=== PATIENT | male | born 1960 | race Caucasian/White ===

== ENCOUNTER 2016-09-29 06:46 | Emergency (ER) | payer MEDICARE ==
--- NOTE | 2016-09-29 07:28 | ER Document Report ---
ED Extremity Problem, Lower - General Mode of Arrival: Ambulatory Information source: Patient TRAVEL OUTSIDE OF THE [place] IN LAST 30 DAYS: No - HPI Patient complains to provider of: Pain - bilateral lower extremities, L>R Onset/Duration: Persistent Quality of pain: Achy, Cramping Recent injury: No - General Chief Complaint: Leg Pain Stated Complaint: LEG PAIN Notes: Patient is a 55-year-old male that presents to the emergency department today with complaints of bilateral leg pain, left greater than right. Patient states in November he was diagnosed with a DVT, patient states that in April he was also found to have another DVT, both being in the left leg. Patient states he has never had a PE. Patient states he is on Coumadin for anticoagulation currently. Patient states he recently moved down here from [place] and he had a 5 day period where he was unable to fill his prescription for Coumadin. Patient is currently being treated at [facility] for chronic low back pain. (JACK AGUILERA) - Related Data Allergies/Adverse Reactions: erythromycin base Allergy (Verified 08/25/16 10:38) Past Medical History - General Information source: Patient, Emergency Med Personnel - Social History Smoking Status: Current Every Day Smoker Cigarette use (# per day): Yes Frequency of alcohol use: None Drug Abuse: None Lives with: Family Family History: Reviewed & Not Pertinent - Past Medical History Cardiac Medical History: Reports: Hx DVT, Hx Hypertension Past Surgical History: Reports: Hx Vascular Surgery - removal of DVTs in legs, IVC filter placed - Immunizations Hx Diphtheria, Pertussis, Tetanus Vaccination: No Review of Systems - Review of Systems Constitutional: No symptoms reported EENT: No symptoms reported Cardiovascular: denies: Chest pain Respiratory: denies: Hurts to breathe, Short of breath Gastrointestinal: No symptoms reported Genitourinary: No symptoms reported Male Genitourinary: No symptoms reported Musculoskeletal: See HPI, Other - bilateral leg/calf pain, L>R Skin: No symptoms reported Hematologic/Lymphatic: No symptoms reported Neurological/Psychological: No symptoms reported -: Yes All other systems reviewed and negative Physical Exam - General General appearance: Appears well, Alert In distress: None - HEENT Head: Normocephalic, Atraumatic Eyes: Normal Conjunctiva: Normal - Respiratory Respiratory status: No respiratory distress Chest status: Nontender Breath sounds: Normal - Cardiovascular Rhythm: Regular Heart sounds: Normal auscultation Murmur: No - Abdominal Inspection: Normal Distension: No distension - Extremities General upper extremity: Normal inspection, Nontender. No: Edema Calf: Tender - mild left calf tenderness with palpation - Neurological Neuro grossly intact: Yes Cognition: Normal Orientation: AAOx4 Speech: Normal - Psychological Associated symptoms: Normal affect, Normal mood - Skin Skin Temperature: Warm Skin Moisture: Dry Skin Color: Normal Course - Re-evaluation Re-evalutation: 09/29/16 23:23 I personally performed the services described in the documentation, reviewed and edited the documentation which was dictated to my scribe in my presence, and it accurately records my words and actions. Patient presented to the emergency Department chief complaint lower extremity pain history DVT. Patient says he recently moved here from [place]. Spent [facility] 5 different times to receive narcotics for chronic pain exacerbations. Says he sees a chronic pain clinic and is out of his pain medication. Says that he had a local family doctor give him some Coumadin but is not sure if it's therapeutic is concerned he has bilateral blood clots. On examination he had good perfusion no cellulitis good distal pulses. Checked his Coumadin level was subtherapeutic ordered bilateral DVT ultrasounds. Called to the bedside by the nurse patient very agitated and fidgety at bedside requesting narcotic pain medication. Explained to him that he has a pain specialist he's been given narcotic pain medication in addition to narcotic pain medication here in the emergency department patient very agitated as if he was going through withdrawal questioning demanding narcotics. This time I spoke with him in terms of chronic pain management the concerns for subtherapeutic DVT. pipe organ technician came over to get him for bilateral duplex ultrasounds and he had left the facility. At this point I contacted the on-call pain management doctor Dr. Guevara as I reviewed his records and he was given 60 narcotic tablets in the emergency department in 6 days. At this point he is drug-seeking behavior and will no longer receive narcotics in the emergency department for any chronic condition. 09/29/16 23:34 (KAPIL FLORES) - Vital Signs Vital signs: Temp Pulse Resp BP Pulse Ox 98.3 F 82 16 163/82 H 97 09/29/16 06:50 09/29/16 06:50 09/29/16 06:50 09/29/16 06:50 09/29/16 06:50 (KAPIL FLORES) - Laboratory Laboratory results interpreted by me: 09/29/16 06:58 PT 21.4 H (KAPIL FLORES) Discharge - Discharge Clinical Impression: Drug-seeking behavior, subtherapeutic on coumadin, history dvt Disposition: ELOPED Scribe Documentation - Scribe Written by Scrseee:: Dg Mckinney, [id number] 09/29/2016 acting as scribe for :: Thong
[2016-09-29 07:29] VITALS: BP 163/82
[2016-09-29 07:41] LABS: PROTHROMBIN TIME 21.4 SEC (11.4-15.4)
== END 2016-09-29 09:29 | disposition left against medical advice (07) ==
LOC: ER 06:46
DX: Z76.5 Malingerer [conscious simulation] (principal); R79.1 Abnormal coagulation profile; F17.210 Nicotine dependence, cigarettes, uncomplicated; I10 Essential (primary) hypertension; Z86.718 Personal history of other venous thrombosis and embolism; Z79.01 Long term (current) use of anticoagulants; Z88.3 Allergy status to other anti-infective agents
CPT/HCPCS: 36415; 85610; 99281

== ENCOUNTER 2016-12-27 18:08 | Emergency (ER) | payer MEDICARE ==
[2016-12-27] MEDS ORDERED: NITROGLYCERIN 0.4 MG/TAB 25 TAB/BOTTLE SL PRN (18:43)
[2016-12-27] MEDS ORDERED: OXYCODONE HCL IR 5 MG TABLET PO ONE (18:44)
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
[2016-12-27 19:19] LABS: PROTHROMBIN TIME 29.4 SEC (11.4-15.4)
[2016-12-27 19:22] LABS: ABSOLUTE EOSINOPHILS # (AUTO) 0.1 10^3/uL (0.0-0.6); ABSOLUTE LYMPHOCYTES (AUTO) 1.8 10^3/uL (0.5-4.7); ABSOLUTE MONOCYTES (AUTO) 0.6 10^3/uL (0.1-1.4); BASOPHILS % (AUTO) 0.2 % (0-2); EOSINOPHILS % (AUTO) 0.8 % (0-6); HEMATOCRIT 42.9 % (37.9-51.0); HEMOGLOBIN 14.9 g/dL (13.5-17.0); HGB HCT DIFFERENCE 1.8; LYMPHOCYTES % (AUTO) 24.1 % (13-45); MEAN CORPUSCULAR HEMOGLOBIN 33.1 pg (27.0-33.4); MEAN CORPUSCULAR HGB CONC 34.7 g/dL (32.0-36.0); MEAN CORPUSCULAR VOLUME 95 fl (80-97); RED CELL DISTRIBUTION WIDTH 14.2 % (11.5-14.0); SEGMENTED NEUTROPHILS % (AUTO) 66.9 % (42-78); WHITE BLOOD COUNT 7.4 10^3/uL (4.0-10.5)
[2016-12-27 19:27] LABS: ALANINE AMINOTRANSFERASE 43 U/L (21-72); ALBUMIN 3.4 g/dL (3.5-5.0); ALKALINE PHOSPHATASE 88 U/L (38-126); ANION GAP 9 (5-19); ASPARTATE AMINO TRANSFERASE 48 U/L (17-59); BILIRUBIN,DIRECT 0.5 mg/dL (0.0-0.4); BILIRUBIN,TOTAL 2.2 mg/dL (0.2-1.3); BLOOD UREA NITROGEN 9 mg/dL (7-20); CALCIUM 9.2 mg/dL (8.4-10.2); CARBON DIOXIDE 23 mmol/L (22-30); CHLORIDE 110 mmol/L (98-107); GLUCOSE 96 mg/dL (75-110); POTASSIUM 4.1 mmol/L (3.6-5.0); SODIUM 142.4 mmol/L (137-145); TOTAL PROTEIN 6.7 g/dL (6.3-8.2)
[2016-12-27 19:47] LABS: TROPONIN I < 0.012 ng/mL
[2016-12-27 20:34] VITALS: BP 114/69
--- NOTE | 2016-12-28 00:11 | EKG REPORT ---
SEVERITY:- NORMAL ECG - SINUS RHYTHM : Confirmed by: Karin Peralta 28-Dec-2016 00:10:35
== END 2016-12-27 22:50 | disposition left against medical advice (07) ==
LOC: ER 18:08
DX: R07.89 Other chest pain (principal); I10 Essential (primary) hypertension; R61 Generalized hyperhidrosis; R11.0 Nausea; R06.02 Shortness of breath; Z88.1 Allergy status to other antibiotic agents; Z86.718 Personal history of other venous thrombosis and embolism; Z86.711 Personal history of pulmonary embolism; Z53.29 Procedure and treatment not carried out because of patient's decision for other reasons
CPT/HCPCS: 93005; 99281; 36415; 85025; 85610; 80053; 84484; 83880; 71010; 93010; A9270

== ENCOUNTER 2017-02-03 03:29 | Observation (INO) | payer MEDICARE ==
[2017-02-03] MEDS ORDERED: ASPIRIN 81 MG TABLET, CHEWABLE PO ONE (03:40)
[2017-02-03 04:10] LABS: PROTHROMBIN TIME 19.1 SEC (11.4-15.4)
[2017-02-03 04:18] LABS: ABSOLUTE BASOPHILS # (AUTO) 0.1 10^3/uL (0.0-0.2); ABSOLUTE EOSINOPHILS # (AUTO) 0.1 10^3/uL (0.0-0.6); ABSOLUTE LYMPHOCYTES (AUTO) 2.1 10^3/uL (0.5-4.7); ABSOLUTE MONOCYTES (AUTO) 0.7 10^3/uL (0.1-1.4); ABSOLUTE NEUT (AUTO) 4.1 10^3/uL (1.7-8.2); BASOPHILS % (AUTO) 0.8 % (0-2); EOSINOPHILS % (AUTO) 1.6 % (0-6); HEMOGLOBIN 15.3 g/dL (13.5-17.0); HGB HCT DIFFERENCE 1.9; LYMPHOCYTES % (AUTO) 29.7 % (13-45); MEAN CORPUSCULAR HGB CONC 34.7 g/dL (32.0-36.0); MEAN CORPUSCULAR VOLUME 95 fl (80-97); MONOCYTES % (AUTO) 9.8 % (3-13); RED BLOOD COUNT 4.64 10^6/uL (4.35-5.55); RED CELL DISTRIBUTION WIDTH 14.1 % (11.5-14.0); SEGMENTED NEUTROPHILS % (AUTO) 58.1 % (42-78)
[2017-02-03 04:19] LABS: ALANINE AMINOTRANSFERASE 47 U/L (21-72); ALBUMIN 3.6 g/dL (3.5-5.0); ALKALINE PHOSPHATASE 86 U/L (38-126); ANION GAP 10 (5-19); ASPARTATE AMINO TRANSFERASE 47 U/L (17-59); BILIRUBIN,DIRECT 0.6 mg/dL (0.0-0.4); BILIRUBIN,TOTAL 1.7 mg/dL (0.2-1.3); BLOOD UREA NITROGEN 13 mg/dL (7-20); CALCIUM 9.3 mg/dL (8.4-10.2); CARBON DIOXIDE 24 mmol/L (22-30); CHLORIDE 109 mmol/L (98-107); CREATINE KINASE 122 U/L (55-170); CREATININE RESULT 0.66 mg/dL (0.52-1.25); GLUCOSE 98 mg/dL (75-110); POTASSIUM 4.1 mmol/L (3.6-5.0); SODIUM 142.8 mmol/L (137-145)
[2017-02-03 04:31] LABS: CREATINE KINASE MB 1.77 ng/mL (<4.55)
[2017-02-03 04:35] LABS: TROPONIN I < 0.012 ng/mL
[2017-02-03] MEDS ORDERED: OXYCODONE-ACETAMINOPHEN 5-325 MG TABLET PO ONE (05:22)
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
[2017-02-03] MEDS ORDERED: ENOXAPARIN SODIUM INJ 120 MG/0.8 ML DISP.SYRIN SUBCUT SCH ×3 (05:30→10:00)
[2017-02-03] MEDS ORDERED: IBUPROFEN 600 MG TABLET PO ONE (07:42)
[2017-02-03] MEDS ORDERED: ONDANSETRON 4 MG TAB.RAPDIS PO PRN (08:30)
[2017-02-03] MEDS ORDERED: ACETAMINOPHEN 325 MG TABLET PO PRN (08:30)
[2017-02-03] MEDS ORDERED: ONDANSETRON HCL INJ/PF 4 MG/2 ML SDV IV PRN (08:30)
[2017-02-03] MEDS ORDERED: ALBUTEROL SULFATE 0.083% NEB 2.5 MG/3 ML AMPUL NEB PRN (08:30)
[2017-02-03] MEDS: LEVOFLOXACIN 750 MG TABLET PO SCH (09:37)
[2017-02-03] MEDS: OXYCODONE HCL IR 5 MG TABLET PO PRN ×4 (09:38→21:38)
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
[2017-02-03 11:15] LABS: PROTHROMBIN TIME 20.7 SEC (11.4-15.4)
[2017-02-03 11:18] LABS: CREATINE KINASE MB 1.45 ng/mL (<4.55)
[2017-02-03 11:35] LABS: TROPONIN I < 0.012 ng/mL
--- NOTE | 2017-02-03 11:50 | XCELERA REPORT ---
[address] [address] Transthoracic Echocardiogram Report Name: RADHA VÁSQUEZ Age: 56 yrs Gender: Male : 1960 Patient Status: Inpatient Patient Location: \S\09\S\A Study Date: 02/03/2017 09:01 AM Height: 69 in Weight: 247 lb BSA: 2.3 m2 Procedure: A two-dimensional transthoracic echocardiogram with color flow and Doppler was performed. Study Quality: Technically suboptimal. Poor endocardial visualisation and poor doppler interogation. Reason For Study: DYSPNEA History: DYSPNEA. Ordering Physician: RENAN CASTILLO Performed By: Josi Estes Interpretation Summary The left ventricle is normal in size. There is normal left ventricular wall thickness. LV EF is 60% Left ventricular systolic function is normal. Doppler measurements suggest normal left ventricular diastolic function Probably no regional wall motion abnormality ,and probably no thrombus. The right ventricle is not well visualized secondary to technical limitations The left atrium is mildly dilated. There is no evidence of mitral valve prolapse. There is no mitral valve stenosis. There is a mild amount of mitral regurgitation There is no aortic valve stenosis There is no LVOT obstruction. No aortic regurgitation is present. There is no tricuspid stenosis. Probably no TR.Unable to calculate RVSP due to insufficient TR jet. There is no pericardial effusion. MMode/2D Measurements \T\ Calculations RVDd: 3.3 cm LVIDd: 5.3 cm FS: 25.8 % Ao root diam: 3.0 cm IVSd: 1.1 cm LVIDs: 3.9 cm EDV(Teich): 134.9 ml LVPWd: 1.1 cm ESV(Teich): 67.1 ml Ao root area: 7.2 cm2 EF(Teich): 50.3 % LA dimension: 4.3 cm Doppler Measurements \T\ Calculations MV E max susie: MV P1/2t max susie: Ao V2 max: LV V1 max P.2 cm/sec 96.7 cm/sec 165.1 cm/sec 7.6 mmHg MV A max susie: MV P1/2t: 68.8 msec Ao max PG: LV V1 max: 81.9 cm/sec 10.9 mmHg 137.7 cm/sec MV E/A: 1.2 MVA(P1/2t): 3.2 cm2 MV dec slope: 412.1 cm/sec2 PA V2 max: 106.1 cm/sec PA max P.5 mmHg Left Ventricle The left ventricle is normal in size. There is normal left ventricular wall thickness. LV EF is 60%. Left ventricular systolic function is normal. Doppler measurements suggest normal left ventricular diastolic function. Probably no regional wall motion abnormality ,and probably no thrombus. Right Ventricle The right ventricle is not well visualized secondary to technical limitations. Atria Right atrium not well visualized secondary to technical limitations. The left atrium is mildly dilated. Mitral Valve There is no evidence of mitral valve prolapse. There is no vegetation seen on the mitral valve. There is no mitral valve stenosis. There is a mild amount of mitral regurgitation. Aortic Valve There is no aortic valvular vegetation. There is no aortic valve stenosis. There is no LVOT obstruction. No aortic regurgitation is present. Tricuspid Valve There is no tricuspid stenosis. Probably no TR.Unable to calculate RVSP due to insufficient TR jet. Pulmonic Valve There is no pulmonic valvular stenosis. There is no pulmonic valvular regurgitation. Great Vessels The aortic root is normal size. Effusions There is no pericardial effusion. : RENAN CASTILLO > Nneka Gonzalez
[2017-02-03] MEDS ORDERED: ATENOLOL 50 MG TABLET PO ONE (12:00)
[2017-02-03] MEDS ORDERED: VALSARTAN 80 MG TABLET PO ONE (12:00)
--- NOTE | 2017-02-03 17:01 | EKG REPORT ---
SEVERITY:- NORMAL ECG - SINUS RHYTHM : Confirmed by: Karin Peralta 03-Feb-2017 17:00:07
[2017-02-03 17:41] LABS: CREATINE KINASE MB 1.45 ng/mL (<4.55); TROPONIN I < 0.012 ng/mL
[2017-02-03] MEDS ORDERED: WARFARIN SODIUM 7.5 MG TABLET PO SCH (18:00)
[2017-02-03] MEDS ORDERED: (PENDING PHARMACY ID) (Warfarin Sodium 7.5 MG) PO SCH (18:00)
[2017-02-03 23:41] LABS: CREATINE KINASE MB 1.41 ng/mL (<4.55)
[2017-02-03 23:43] LABS: TROPONIN I < 0.012 ng/mL
[2017-02-04] MEDS: OXYCODONE HCL IR 5 MG TABLET PO PRN ×3 (01:33→12:05)
[2017-02-04 04:22] LABS: HEMATOCRIT 44.7 % (37.9-51.0); HEMOGLOBIN 15.4 g/dL (13.5-17.0); HGB HCT DIFFERENCE 1.5; MEAN CORPUSCULAR HEMOGLOBIN 32.5 pg (27.0-33.4); MEAN CORPUSCULAR HGB CONC 34.4 g/dL (32.0-36.0); MEAN CORPUSCULAR VOLUME 95 fl (80-97); RED BLOOD COUNT 4.72 10^6/uL (4.35-5.55); RED CELL DISTRIBUTION WIDTH 14.2 % (11.5-14.0); WHITE BLOOD COUNT 5.6 10^3/uL (4.0-10.5)
[2017-02-04 04:30] LABS: ANION GAP 9 (5-19); BLOOD UREA NITROGEN 14 mg/dL (7-20); CALCIUM 9.8 mg/dL (8.4-10.2); CARBON DIOXIDE 23 mmol/L (22-30); CHLORIDE 108 mmol/L (98-107); CREATININE RESULT 0.74 mg/dL (0.52-1.25); GLUCOSE 85 mg/dL (75-110); MAGNESIUM 1.8 mg/dL (1.6-2.3); POTASSIUM 4.6 mmol/L (3.6-5.0); SODIUM 139.8 mmol/L (137-145)
[2017-02-04] MEDS ORDERED: RIVAROXABAN 10 MG TABLET PO ONE ×2 (08:45→13:30)
[2017-02-04] MEDS ORDERED: TRAMADOL HCL 50 MG TABLET PO PRN (09:03)
[2017-02-04] MEDS ORDERED: VALSARTAN 80 MG TABLET PO SCH (10:00)
[2017-02-04] MEDS ORDERED: ATENOLOL 50 MG TABLET PO SCH (10:00)
[2017-02-04] MEDS ORDERED: (PENDING PHARMACY ID) (Atenolol [Tenormin 100 Mg Tablet] 100 MG) PO SCH (10:00)
[2017-02-04] MEDS ORDERED: REGADENOSON INJ 0.4 MG/5 ML DISP.SYRIN IV ONE (11:37)
[2017-02-04] MEDS: LEVOFLOXACIN 750 MG TABLET PO SCH (12:03)
[2017-02-04 14:41] VITALS: BP 114/66
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
--- NOTE | 2017-02-04 20:35 | DRAGON STRESS TEST REPORT ---
Intravenous Lexiscan Cardiolite stress test using single photon emmision computerized tomography. Date of procedure: 02/04/2017 Ordering Provider: Dr. Sam Becker Patient's status: Inpatient. Indication: Chest pain. Coronary risk factors: Age, hypertension, tobacco abuse , and dyspnea on exertion. Resting EKG: Sinus Rhythm. Artifact present. Probably normal EKG. Stress EKG: No changes of ischemia. The patient had no chest pain or discomfort. There were no arrhythmias seen. The patient had transient shortness of breath which was relieved with drinking Pepsi. Reason for termination: Protocol. Conclusions: Normal EKG and hemodynamic response to IV Lexiscan. Nuclear data: At rest the patient was given 14.63 millicuries of technetium 99m sestamibi injected intravenously. As per protocol rest non gated SPECT images were obtained. Subsequently the patient was given intravenous Lexiscan at a dose of 0.4 mg in 5 mL intravenously, followed by flush with normal saline. Subsequently the stress dose of 45.3 millicuries of technetium 99m sestamibi was injected intravenously. As per protocol stress gated images were obtained. Nuclear interpretation: Review of images showed that there is bowel contamination artifact of the inferior wall. In spite of all this all segments of the myocardium had normal perfusion at rest, and normal perfusion post stress with IV Lexiscan. All segments of the myocardium had normal motion, contraction, and thickening by gated study. T. I D. ratio was normal at 1.10. Computer read rest, and stress left ventricular ejection fraction were 62 %, and 62 %, respectively. Conclusion: 1. There is no scintigraphic evidence of Lexiscan induced myocardial ischemia. 2. There is no scintigraphic evidence of myocardial infarction/scar. Recommendations: 1Aggressive risk factor modification, and treating the underlying co- morbidities. 2. Consider pulmonary workup. [facility]
[2017-02-05] MEDS ORDERED: WARFARIN SODIUM 5 MG TABLET PO SCH (18:00)
[2017-02-05] MEDS ORDERED: (PENDING PHARMACY ID) (Warfarin Sodium 5 MG) PO SCH (18:00)
== END 2017-02-04 14:57 | disposition home or self-care (01) ==
LOC: ER 03:29 → EH 07:42 → UNDOADMOB 07:42 → EH 08:30 → 5 12:35
PROVIDERS: ADMIT Internal Medicine; ATTEND Internal Medicine
DX: R07.89 Other chest pain (principal); I10 Essential (primary) hypertension; B19.20 Unspecified viral hepatitis C without hepatic coma; G89.29 Other chronic pain; I25.10 Atherosclerotic heart disease of native coronary artery without angina pectoris; I51.89 Other ill-defined heart diseases; I82.409 Acute embolism and thrombosis of unspecified deep veins of unspecified lower extremity; F17.200 Nicotine dependence, unspecified, uncomplicated; E66.9 Obesity, unspecified; R05 Cough; R68.83 Chills (without fever); R06.02 Shortness of breath; M54.9 Dorsalgia, unspecified; Z79.899 Other long term (current) drug therapy; Z86.711 Personal history of pulmonary embolism; Z79.02 Long term (current) use of antithrombotics/antiplatelets; Z95.828 Presence of other vascular implants and grafts; Z82.3 Family history of stroke; Z80.1 Family history of malignant neoplasm of trachea, bronchus and lung; Z80.0 Family history of malignant neoplasm of digestive organs; Z68.36 Body mass index [BMI] 36.0-36.9, adult
CPT/HCPCS: 93005; 99285; 96372; 36415 ×2; 82553; 82550; 83735; 85025; 85027; 85610; 85730; 80048; 80053; 84484; 83880; 93306; 93017; 71020; 78452; 71275; 93010; G0378 ×3; C1751; A9500; J2785; A9270 ×12; J1650; J3490; Q9969

== ENCOUNTER 2017-02-09 19:22 | Emergency (ER) | payer MEDICARE ==
[2017-02-09] MEDS ORDERED: ASPIRIN 81 MG TABLET, CHEWABLE PO ONE (20:27)
--- NOTE | 2017-02-09 20:35 | EKG REPORT ---
SEVERITY:- NORMAL ECG - SINUS RHYTHM : Confirmed by: Karin Peralta 09-Feb-2017 20:34:11
--- NOTE | 2017-02-09 20:40 | ER Document Report ---
ED Medical Screen (RME) - General Chief Complaint: Chest Pain Stated Complaint: CHEST PAIN Time Seen by Provider: 02/09/17 20:26 Notes: Patient is a 56-year-old male the history of blood clots comes in complaining of some chest tightness. Patient also becomes winded when walking. Possible recent diagnosis of pneumonia for which she was on azithromycin. Patient takes warfarin. TRAVEL OUTSIDE OF THE [place] IN LAST 30 DAYS: No - Related Data Allergies/Adverse Reactions: erythromycin base Allergy (Verified 02/03/17 03:41) Past Medical History - Past Medical History Cardiac Medical History: Reports: Hx DVT, Hx Hypertension Renal/ Medical History: Denies: Hx Peritoneal Dialysis GI Medical History: Reports: Hx Hepatitis - History of hepatitis C. He has had treatment. Infectious Medical History: Reports: Hx Hepatitis - History of hepatitis C. He has had treatment. Past Surgical History: Reports: Hx Orthopedic Surgery - Has had cervical spine surgery, Hx Vascular Surgery - removal of DVTs in legs, IVC filter placed - Immunizations Hx Diphtheria, Pertussis, Tetanus Vaccination: No Review of Systems - Review of Systems Cardiovascular: See HPI Respiratory: See HPI Physical Exam - Vital signs Vitals: Temp Pulse Resp BP Pulse Ox 98.6 F 67 20 134/71 H 97 02/09/17 20:05 02/09/17 20:05 02/09/17 20:05 02/09/17 20:05 02/09/17 20:05 Interpretation: Normal - General General appearance: Appears well, Alert - HEENT Head: Normocephalic, Atraumatic Eyes: Normal Pupils: PERRL - Respiratory Respiratory status: No respiratory distress Chest status: Nontender Breath sounds: Normal Chest palpation: Normal - Cardiovascular Rhythm: Regular Heart sounds: Normal auscultation Murmur: No - Abdominal Inspection: Normal Distension: No distension Bowel sounds: Normal Tenderness: Nontender Organomegaly: No organomegaly - Back Back: Normal, Nontender - Extremities General upper extremity: Normal inspection, Nontender, Normal color, Normal ROM , Normal temperature General lower extremity: Normal inspection, Nontender, Normal color, Normal ROM , Normal temperature, Normal weight bearing. No: Carole's sign - Neurological Neuro grossly intact: Yes Cognition: Normal Orientation: AAOx4 [place] Coma Scale Eye Opening: Spontaneous [place] Coma Scale Verbal: Oriented [place] Coma Scale Motor: Obeys Commands Wilner Coma Scale Total: 15 Speech: Normal Motor strength normal: LUE, RUE, LLE, RLE Sensory: Normal - Psychological Associated symptoms: Normal affect, Normal mood - Skin Skin Temperature: Warm Skin Moisture: Dry Skin Color: Normal Course - Vital Signs Vital signs: Temp Pulse Resp BP Pulse Ox 98.6 F 67 20 134/71 H 97 02/09/17 20:05 02/09/17 20:05 02/09/17 20:05 02/09/17 20:05 02/09/17 20:05
[2017-02-09 21:16] LABS: ABSOLUTE BASOPHILS # (AUTO) 0.1 10^3/uL (0.0-0.2); ABSOLUTE EOSINOPHILS # (AUTO) 0.1 10^3/uL (0.0-0.6); ABSOLUTE LYMPHOCYTES (AUTO) 2.9 10^3/uL (0.5-4.7); ABSOLUTE MONOCYTES (AUTO) 0.8 10^3/uL (0.1-1.4); ABSOLUTE NEUT (AUTO) 4.4 10^3/uL (1.7-8.2); BASOPHILS % (AUTO) 0.6 % (0-2); EOSINOPHILS % (AUTO) 1.4 % (0-6); HEMATOCRIT 49.3 % (37.9-51.0); HEMOGLOBIN 16.8 g/dL (13.5-17.0); HGB HCT DIFFERENCE 1.1; LYMPHOCYTES % (AUTO) 34.6 % (13-45); MEAN CORPUSCULAR HEMOGLOBIN 32.6 pg (27.0-33.4); MEAN CORPUSCULAR VOLUME 96 fl (80-97); MONOCYTES % (AUTO) 9.9 % (3-13); RED BLOOD COUNT 5.15 10^6/uL (4.35-5.55); RED CELL DISTRIBUTION WIDTH 14.3 % (11.5-14.0); SEGMENTED NEUTROPHILS % (AUTO) 53.5 % (42-78); WHITE BLOOD COUNT 8.3 10^3/uL (4.0-10.5)
[2017-02-09 21:23] LABS: ALANINE AMINOTRANSFERASE 53 U/L (21-72); ALBUMIN 4.1 g/dL (3.5-5.0); ALKALINE PHOSPHATASE 98 U/L (38-126); ANION GAP 9 (5-19); ASPARTATE AMINO TRANSFERASE 79 U/L (17-59); BILIRUBIN,DIRECT 0.8 mg/dL (0.0-0.4); BILIRUBIN,TOTAL 1.9 mg/dL (0.2-1.3); BLOOD UREA NITROGEN 11 mg/dL (7-20); CALCIUM 11.3 mg/dL (8.4-10.2); CARBON DIOXIDE 27 mmol/L (22-30); CHLORIDE 106 mmol/L (98-107); CREATINE KINASE 143 U/L (55-170); CREATININE RESULT 0.73 mg/dL (0.52-1.25); GLUCOSE 89 mg/dL (75-110); POTASSIUM 4.4 mmol/L (3.6-5.0); SODIUM 142.1 mmol/L (137-145); TOTAL PROTEIN 8.7 g/dL (6.3-8.2)
[2017-02-09] MEDS ORDERED: MORPHINE SULFATE IR 15 MG TABLET PO ONE (21:27)
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
[2017-02-09 21:35] LABS: CREATINE KINASE MB 1.63 ng/mL (<4.55)
[2017-02-09 21:37] LABS: TROPONIN I < 0.012 ng/mL
[2017-02-09 22:22] VITALS: BP 140/72
== END 2017-02-09 22:22 | disposition home or self-care (01) ==
LOC: ER 19:22
DX: R07.9 Chest pain, unspecified (principal); G89.29 Other chronic pain; I10 Essential (primary) hypertension; Z86.19 Personal history of other infectious and parasitic diseases; Z88.3 Allergy status to other anti-infective agents; Z86.718 Personal history of other venous thrombosis and embolism
CPT/HCPCS: 93005; 99285; 36415; 82553; 82550; 85025; 85610; 80053; 84484; 71020; 93010; A9270

== ENCOUNTER 2017-02-21 20:17 | Emergency (ER) | payer MEDICARE ==
[2017-02-21] MEDS ORDERED: MORPHINE SULFATE 10 MG/ML INJ IM ONE (20:55)
--- NOTE | 2017-02-21 21:01 | ER Document Report ---
ED Extremity Problem, Lower - General Chief Complaint: Leg Pain Stated Complaint: BILATERAL LEG PAIN Time Seen by Provider: 02/21/17 20:55 Information source: Patient - This 56-year-old male who presents to the emergency room today stating he has got anterior lower extremity discomfort bilateral from the knees down. This been ongoing for approximately 2-3 weeks TRAVEL OUTSIDE OF THE [place] IN LAST 30 DAYS: No - Related Data Allergies/Adverse Reactions: erythromycin base Allergy (Verified 02/03/17 03:41) Past Medical History - General Information source: Patient - Social History Smoking Status: Current Every Day Smoker Cigarette use (# per day): No Chew tobacco use (# tins/day): No Smoking Education Provided: No Family History: Reviewed & Not Pertinent - Past Medical History Cardiac Medical History: Reports: Hx DVT, Hx Hypertension Renal/ Medical History: Denies: Hx Peritoneal Dialysis GI Medical History: Reports: Hx Hepatitis - History of hepatitis C. He has had treatment. Infectious Medical History: Reports: Hx Hepatitis - History of hepatitis C. He has had treatment. Past Surgical History: Reports: Hx Orthopedic Surgery - Has had cervical spine surgery, Hx Vascular Surgery - removal of DVTs in legs, IVC filter placed - Immunizations Hx Diphtheria, Pertussis, Tetanus Vaccination: No Review of Systems - Review of Systems Constitutional: No symptoms reported EENT: No symptoms reported Cardiovascular: No symptoms reported Respiratory: No symptoms reported Gastrointestinal: No symptoms reported Genitourinary: No symptoms reported Male Genitourinary: No symptoms reported Musculoskeletal: No symptoms reported Skin: No symptoms reported Hematologic/Lymphatic: No symptoms reported Neurological/Psychological: No symptoms reported Physical Exam - Vital signs Vitals: Temp Pulse Resp BP Pulse Ox 98.1 F 73 20 173/96 H 98 02/21/17 20:22 02/21/17 20:22 02/21/17 20:22 02/21/17 20:22 02/21/17 20:22 Interpretation: Normal - General General appearance: Appears well, Alert - HEENT Head: Normocephalic, Atraumatic Eyes: Normal Pupils: PERRL - Respiratory Respiratory status: No respiratory distress Chest status: Nontender Breath sounds: Normal Chest palpation: Normal - Cardiovascular Rhythm: Regular Heart sounds: Normal auscultation Murmur: No - Abdominal Inspection: Normal Distension: No distension Bowel sounds: Normal Tenderness: Nontender Organomegaly: No organomegaly - Back Back: Normal, Nontender - Extremities General upper extremity: Normal inspection, Nontender, Normal color, Normal ROM , Normal temperature General lower extremity: Normal inspection, Nontender, Normal color, Normal ROM , Normal temperature, Normal weight bearing. No: Carole's sign - Neurological Neuro grossly intact: Yes Cognition: Normal Orientation: AAOx4 [place] Coma Scale Eye Opening: Spontaneous Wilner Coma Scale Verbal: Oriented [place] Coma Scale Motor: Obeys Commands Wilner Coma Scale Total: 15 Speech: Normal Motor strength normal: LUE, RUE, LLE, RLE Sensory: Normal - Psychological Associated symptoms: Normal affect, Normal mood - Skin Skin Temperature: Warm Skin Moisture: Dry Skin Color: Normal Course - Re-evaluation Re-evalutation: 02/21/17 20:57 Patient has no calf pain pain no posterior popliteal area pain no palpation of the Eller's cyst. He states the pain is on the anterior surface bilateral shins ongoing for 2-3 weeks states he feels as though there is a little bit of a tingling nature to it rapid capillary refill ambulatory with a rhythmic and steady gait. - Vital Signs Vital signs: Temp Pulse Resp BP Pulse Ox 98.1 F 73 20 173/96 H 98 02/21/17 20:22 02/21/17 20:22 02/21/17 20:22 02/21/17 20:22 02/21/17 20:22 Discharge - Discharge Clinical Impression: Peripheral neuropathy Qualifiers: Peripheral neuropathy type: polyneuropathy, other Qualified Code(s): G62.89 - Other specified polyneuropathies Disposition: HOME, SELF-CARE Additional Instructions: Neuralgia Neuralgia is nerve pain. Usually, the pains are sudden and sharp. They' re brief, but come repeatedly. The pains can occur spontaneously, or can be triggered by motion or touching. Sometimes the pain is constant. Neuralgia can occur with injury, infection, poor blood flow to the nerves, or chemical changes (such as hyperventilation). It's common in diseases that affect blood vessels, such as diabetes or high blood pressure. Anything that irritates or disturbs the nerves can cause neuralgia. The usual treatment is antiinflammatory medicine (such as ibuprofen, or prednisone for severe cases). Avoid rubbing or irritating the areas near the pain. Both adequate rest and regular aerobic exercise help reduce the frequency of the pains. A good mental attitude helps, too -- antidepressant medicine is often helpful for resistant cases of neuralgia. Call the doctor if there are new symptoms, such as numbness, loss of strength, discoloration of the skin, or continuous pain. Prescriptions: Gabapentin [Neurontin 100 mg Capsule] 100 mg PO Q12 #60 capsule
[2017-02-21 22:08] VITALS: BP 138/87
== END 2017-02-21 21:40 | disposition home or self-care (01) ==
LOC: ER 20:17
DX: G62.89 Other specified polyneuropathies (principal); M79.605 Pain in left leg; M79.604 Pain in right leg; F17.200 Nicotine dependence, unspecified, uncomplicated; I10 Essential (primary) hypertension; Z86.718 Personal history of other venous thrombosis and embolism; Z88.3 Allergy status to other anti-infective agents; Z86.19 Personal history of other infectious and parasitic diseases
CPT/HCPCS: 99283; 96372; J2270

== ENCOUNTER 2017-02-22 10:59 | Emergency (ER) | payer MEDICARE ==
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
[2017-02-22 12:19] LABS: ABSOLUTE EOSINOPHILS # (AUTO) 0.1 10^3/uL (0.0-0.6); ABSOLUTE LYMPHOCYTES (AUTO) 1.4 10^3/uL (0.5-4.7); ABSOLUTE MONOCYTES (AUTO) 0.5 10^3/uL (0.1-1.4); ABSOLUTE NEUT (AUTO) 3.6 10^3/uL (1.7-8.2); BASOPHILS % (AUTO) 0.3 % (0-2); EOSINOPHILS % (AUTO) 1.1 % (0-6); HEMATOCRIT 45.8 % (37.9-51.0); HEMOGLOBIN 15.5 g/dL (13.5-17.0); HGB HCT DIFFERENCE 0.7; LYMPHOCYTES % (AUTO) 25.2 % (13-45); MEAN CORPUSCULAR HEMOGLOBIN 32.8 pg (27.0-33.4); MEAN CORPUSCULAR HGB CONC 33.8 g/dL (32.0-36.0); MEAN CORPUSCULAR VOLUME 97 fl (80-97); MONOCYTES % (AUTO) 8.4 % (3-13); RED BLOOD COUNT 4.73 10^6/uL (4.35-5.55); RED CELL DISTRIBUTION WIDTH 14.5 % (11.5-14.0); WHITE BLOOD COUNT 5.5 10^3/uL (4.0-10.5)
[2017-02-22 12:36] LABS: ALANINE AMINOTRANSFERASE 54 U/L (21-72); ALBUMIN 3.7 g/dL (3.5-5.0); ALKALINE PHOSPHATASE 102 U/L (38-126); ANION GAP 9 (5-19); ASPARTATE AMINO TRANSFERASE 53 U/L (17-59); BILIRUBIN,DIRECT 0.6 mg/dL (0.0-0.4); BILIRUBIN,TOTAL 1.6 mg/dL (0.2-1.3); BLOOD UREA NITROGEN 7 mg/dL (7-20); CALCIUM 9.5 mg/dL (8.4-10.2); CARBON DIOXIDE 21 mmol/L (22-30); CHLORIDE 112 mmol/L (98-107); CREATININE RESULT 0.67 mg/dL (0.52-1.25); GLUCOSE 103 mg/dL (75-110); POTASSIUM 4.5 mmol/L (3.6-5.0); SODIUM 142.3 mmol/L (137-145); TOTAL PROTEIN 7.2 g/dL (6.3-8.2)
[2017-02-22] MEDS ORDERED: OXYCODONE-ACETAMINOPHEN 5-325 MG TABLET PO ONE (12:46)
--- NOTE | 2017-02-22 12:47 | ER Document Report ---
ED Extremity Problem, Lower - General Chief Complaint: Leg Pain Stated Complaint: LEG PAIN Time Seen by Provider: 02/22/17 11:28 Mode of Arrival: Ambulatory Information source: Patient Notes: Patient is a 56-year-old male with a history of hepatitis C, DVT, hypertension who presents to the ER today for bilateral lower extremity pain. Patient states that his left lower leg has been hurting him, chronically but more so in the last 2 weeks. He states that it "feels like my blood clot is back." He is on warfarin daily. He states that he has a filter in the left lower extremity for a previous blood clot. He does get a pain management and states that his pain management doctor will no longer give him his Percocet because he wants him to go to opiate classes, but patient states that he does not know why this is. He told the triage provider here in the emergency department that he had not been to the class but cannot explain why, he told me that he had been to the class. He was seen here yesterday and given gabapentin for the same problem. He has been seen here 4 times in 1 month. Pt also complains of RUQ pain x 3 days. He denies n/v/d. He has no gallbladder. TRAVEL OUTSIDE OF THE [place] IN LAST 30 DAYS: No - Related Data Allergies/Adverse Reactions: erythromycin base Allergy (Verified 02/22/17 11:22) Past Medical History - General Information source: Patient - Social History Smoking Status: Current Every Day Smoker Family History: Reviewed & Not Pertinent Patient has suicidal ideation: No Patient has homicidal ideation: No - Past Medical History Cardiac Medical History: Reports: Hx DVT, Hx Hypertension Renal/ Medical History: Denies: Hx Peritoneal Dialysis GI Medical History: Reports: Hx Hepatitis - History of hepatitis C. He has had treatment. Musculoskeltal Medical History: Reports Hx Arthritis Infectious Medical History: Reports: Hx Hepatitis - History of hepatitis C. He has had treatment. Past Surgical History: Reports: Hx Orthopedic Surgery - Has had cervical spine surgery, L Knee Replacement, Hx Vascular Surgery - removal of DVTs in legs, IVC filter placed - Immunizations Hx Diphtheria, Pertussis, Tetanus Vaccination: No Review of Systems - Review of Systems Constitutional: No symptoms reported EENT: No symptoms reported Cardiovascular: No symptoms reported Respiratory: No symptoms reported Gastrointestinal: No symptoms reported Genitourinary: No symptoms reported Male Genitourinary: No symptoms reported Musculoskeletal: See HPI Skin: No symptoms reported Hematologic/Lymphatic: No symptoms reported Neurological/Psychological: No symptoms reported Physical Exam - Vital signs Vitals: Temp Pulse Resp BP Pulse Ox 97.7 F 78 16 137/77 H 98 02/22/17 11:04 02/22/17 11:04 02/22/17 11:04 02/22/17 11:04 02/22/17 11:04 - Notes Notes: PHYSICAL EXAMINATION: GENERAL: well appearing and in no acute distress. HEAD: Atraumatic, normocephalic. EYES: Pupils equal round and reactive to light, extraocular movements intact, sclera anicteric, conjunctiva are normal. NECK: Normal range of motion, supple without lymphadenopathy LUNGS: CTAB and equal. No wheezes rales or rhonchi. HEART: Regular rate and rhythm without murmurs ABDOMEN: Soft, RUQ tenderness. No guarding, no rebound BACK: no vertebral tenderness, normal ROM GI/: no CVA tenderness EXTREMITIES: tender to palpation over anterior lower extremities bilaterally, no calf tenderness, no discoloration, Carole's sign negative, Normal range of motion, slight pitting edema to bilateral lower extremities. No cyanosis. NEUROLOGICAL: Cranial nerves grossly intact. Normal sensory/motor exams. PSYCH: Normal mood, normal affect. SKIN: Warm, Dry, normal turgor, no rashes or lesions noted Course - Re-evaluation Re-evalutation: 02/22/17 15:43 doppler is negative for DVT in left leg, RUQ us normal without gallbladder. labwork all unremarkable today. I will not provide pt with percocet to go home with as he has a pain contract with pain management. - Vital Signs Vital signs: Temp Pulse Resp BP Pulse Ox 97.7 F 78 16 137/77 H 98 02/22/17 11:04 02/22/17 11:04 02/22/17 11:22 02/22/17 11:04 02/22/17 11:04 - Laboratory Result Diagrams: 02/22/17 11:40 02/22/17 11:40 Laboratory results interpreted by me: 02/22/17 02/22/17 02/22/17 11:40 11:40 11:40 RDW 14.5 H Plt Count 48 L PT 27.0 H Chloride 112 H Carbon Dioxide 21 L Total Bilirubin 1.6 H Direct Bilirubin 0.6 H Discharge - Discharge Clinical Impression: Leg pain, bilateral Hepatitis C Qualifiers: Viral hepatitis chronicity: chronic Hepatic coma status: without hepatic coma Qualified Code(s): B18.2 - Chronic viral hepatitis C Condition: Stable Disposition: HOME, SELF-CARE Additional Instructions: Return immediately for any new or worsening symptoms. Follow up with primary care provider, call tomorrow to make followup appointment. center for pain management Address: [address], [place] [id number] [facility] Address: [facility], [place] [address] [facility] Address: [address] , [place] [address] Prescriptions: Lidocaine [Lidoderm 5% (700 mg) Transdermal Patch] 1 patch TP DAILY #30 adh..patch Referrals: JAIRON TAYLOR MD [ACTIVE STAFF] - Follow up as needed
--- NOTE | 2017-02-22 14:32 | RADIOLOGY REPORT (SQ) ---
EXAM DESCRIPTION: U/S ABDOMEN LIMITED W/O DOP COMPLETED DATE/TIME: 02/22/2017 2:20 pm REASON FOR STUDY: ruq pain COMPARISON: None. TECHNIQUE: Dynamic and static grayscale images acquired of the right upper quadrant and recorded on PACS. Additional selected color Doppler and spectral images recorded. LIMITATIONS: Study limited due to acoustical interference from fat or from air in the bowel. FINDINGS: PANCREAS: Visualized pancreas and duct normal. Parts of pancreas poorly seen secondary to acoustical interference from fat or from air in the bowel. LIVER: No masses. Echotexture normal. LIVER VASCULATURE: Normal directional flow of the main portal vein and hepatic veins. GALLBLADDER: Surgically absent. ULTRASOUND-DETECTED VILLANUEVA'S SIGN: Not applicable. INTRAHEPATIC DUCTS AND COMMON DUCT: CBD and intrahepatic ducts normal caliber. No filling defects. INFERIOR VENA CAVA: Normal flow. AORTA: No aneurysm. RIGHT KIDNEY: Normal size. Normal echogenicity. No solid or suspicious masses. No hydronephrosis. No calcifications. PERITONEAL CAVITY AND RIGHT PLEURAL SPACE: No ascites or effusions. OTHER: No other significant finding. IMPRESSION: NORMAL RIGHT UPPER QUADRANT ULTRASOUND. PANCREAS PARTIALLY OBSCURED BY GAS. TECHNICAL DOCUMENTATION: JOB ID: [id number] [employer]- All Rights Reserved
[2017-02-22] MEDS ORDERED: HYDROCODONE/ACETAMINOPHEN 5-325 MG 6 TAB/DSPK PO PRN (16:03)
[2017-02-22 16:23] VITALS: BP 132/81
--- NOTE | 2017-02-23 16:44 | XCELERA REPORT ---
[address] [address] Lower Extremity Venous Evaluation Name: RADHA VÁSQUEZ Age: 56 yrs Gender: Male : 1960 Patient Status: Emergency Patient Location: ER Study Date: 02/22/2017 02:52 PM Procedure: Color flow and duplex imaging of the veins of the left lower extremity as well as the right Common Femoral vein. Reason For Study: left lower leg pain, pitting edema, hx clot Ordering Physician: DONATO TEMPLETON PA-C Performed By: Julianne Gilliam Right Sided Venous Evaluation The right common femoral vein is fully compressible. Spontaneous and phasic flow is present in the right common femoral vein. Left Sided Venous Evaluation Normal vessel filling wall to wall, compression and augmentation as well as Colour flow down to the infrageniculate veins. Critical Findings Called in to the ER. Interpretation Summary No duplex evidence of DVT or obstruction in the left lower extremity nor in the right Common Femoral vein. : DONATO TEMPLETON PA-C > Charles Guerra
== END 2017-02-22 16:15 | disposition home or self-care (01) ==
LOC: ER 10:59
DX: B18.2 Chronic viral hepatitis C (principal); M79.604 Pain in right leg; M79.605 Pain in left leg; Z86.718 Personal history of other venous thrombosis and embolism; I10 Essential (primary) hypertension
CPT/HCPCS: 99284; 36415; 85025; 85610; 80053; 93971 ×2; 76705; A9270 ×2

== ENCOUNTER 2017-02-24 17:02 | Emergency (ER) | payer MEDICARE ==
[2017-02-24] MEDS ORDERED: OXYCODONE-ACETAMINOPHEN 5-325 MG TABLET PO ONE (18:17)
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
[2017-02-24 19:37] VITALS: BP 155/81
== END 2017-02-24 19:37 | disposition home or self-care (01) ==
LOC: ER 17:02
DX: I10 Essential (primary) hypertension (principal); G89.29 Other chronic pain; M79.605 Pain in left leg; M79.604 Pain in right leg; Z86.718 Personal history of other venous thrombosis and embolism; Z86.19 Personal history of other infectious and parasitic diseases; Z96.652 Presence of left artificial knee joint
CPT/HCPCS: 99283; A9270

== ENCOUNTER 2017-04-07 23:19 | Emergency (ER) | payer MEDICARE ==
--- NOTE | 2017-04-08 00:48 | ER Document Report ---
ED GI/ - General Mode of Arrival: Wheelchair Information source: Patient TRAVEL OUTSIDE OF THE [place] IN LAST 30 DAYS: No - HPI Onset: Other - Refer to HPI notes <JOSSELIN JACKSON - Last Filed: 04/08/17 06:34> <ESTEFANIA FLORES - Last Filed: 04/08/17 06:37> - General Chief Complaint: Groin Pain Stated Complaint: BACK/GROIN PAIN Time Seen by Provider: 04/08/17 00:46 Notes: Patient is a 56-year-old male presenting to the emergency department for left groin and left testicle pain. Patient states his pain was onset yesterday and he noticed it that while he was getting into his vehicle. Patient states he felt a burning sensation as well as stabbing pain into his groin and testicle area. Patient states that his pain became worse today and he has urgency but has no pain with urination. Patient describes his pain as stabbing and states he feels like something wants to poke through his skin. Patient also complains of some nausea which comes with the pain. Patient denies any fever, diarrhea, or vomiting. Patient has a history of blood clots, hypertension, hypercholesterolemia, TIA and hepatitis C. Patient takes warfarin, valsartan, and atenolol. Patient does not have a primary care physician. (JOSSELIN JACKSON) - Related Data Allergies/Adverse Reactions: erythromycin base Allergy (Verified 04/07/17 23:27) hydromorphone [From Dilaudid] Adverse Reaction (Verified 04/07/17 23:27) palpations Past Medical History - General Information source: Patient - Social History Smoking Status: Current Every Day Smoker Chew tobacco use (# tins/day): No Smoking Education Provided: No Frequency of alcohol use: None Drug Abuse: None Family History: None - Past Medical History Cardiac Medical History: Reports: Hx DVT, Hx Hypercholesterolemia, Hx Hypertension Neurological Medical History: Reports: Hx Cerebrovascular Accident - TIA GI Medical History: Reports: Hx Hepatitis - History of hepatitis C. He has had treatment. Musculoskeltal Medical History: Reports Hx Arthritis Infectious Medical History: Reports: Hx Hepatitis - History of hepatitis C. He has had treatment. Past Surgical History: Reports: Hx Orthopedic Surgery - Has had cervical spine surgery, L Knee Replacement, Hx Vascular Surgery - removal of DVTs in legs, IVC filter placed - Immunizations Hx Diphtheria, Pertussis, Tetanus Vaccination: No <JOSSELIN JACKSON - Last Filed: 04/08/17 06:34> Review of Systems - Review of Systems Constitutional: No symptoms reported EENT: No symptoms reported Cardiovascular: No symptoms reported Respiratory: No symptoms reported Gastrointestinal: See HPI, Nausea Genitourinary: See HPI, Urgency Male Genitourinary: See HPI, Testicular pain Musculoskeletal: See HPI, Other - Groin pain Skin: No symptoms reported Hematologic/Lymphatic: No symptoms reported Neurological/Psychological: No symptoms reported -: Yes All other systems reviewed and negative <JOSSELIN JACKSON - Last Filed: 04/08/17 06:34> Physical Exam - Vital signs Interpretation: Hypertensive <MANUELKATIANAJOSSELIN - Last Filed: 04/08/17 06:34> <ESTEFANIA FLORES - Last Filed: 04/08/17 06:37> - Vital signs Vitals: Temp Pulse Resp BP Pulse Ox 98.1 F 79 18 155/87 H 99 04/07/17 23:29 04/07/17 23:29 04/07/17 23:29 04/07/17 23:29 04/07/17 23:29 - Notes Notes: GENERAL: Alert, interacts well. No acute distress. HEAD: Normocephalic, atraumatic. EYES: Pupils equal, round, and reactive to light. Extraocular movements intact. ENT: Oral mucosa moist, tongue midline. NECK: Full range of motion. Supple. Trachea midline. LUNGS: Clear to auscultation bilaterally, no wheezes, rales, or rhonchi. No respiratory distress. HEART: Regular rate and rhythm. No murmurs, gallops, or rubs. ABDOMEN: Left lower quadrant tenderness to palpation. No masses. no guarding, rigidity, or rebound. Non-distended. Bowel sounds present in all 4 quadrants. EXTREMITIES: Moves all 4 extremities spontaneously. No edema. No cyanosis. GENITOURINARY: Cremasteric reflex intact. Mass palpable behind the left testicle, tender to palpation consistent with a reducible left inguinal hernia. NEUROLOGICAL: Alert and oriented x3. Normal speech. PSYCH: Normal affect, normal mood. SKIN: Warm, dry, normal turgor. No rashes or lesions noted. (JOSSELIN JACKSON) Course - Laboratory Result Diagrams: 04/08/17 01:10 04/08/17 01:10 <JOSSELIN JACSKON - Last Filed: 04/08/17 06:34> - Laboratory Result Diagrams: 04/08/17 01:10 04/08/17 01:10 <ESTEFANIA FLORES - Last Filed: 04/08/17 06:37> - Re-evaluation Re-evalutation: 04/08/17 02:47 CBC shows chronic thrombocytopenia essentially unchanged, no leukocytosis, CMP unremarkable, urinalysis pending, scrotal ultrasound show any evidence of testicular mass or torsion, there is a small varicocele, at the area of the pain in the left inguinal region there is a prominent hyperechoic soft tissue density extending in the left scrotal sac and slightly displacing the left testicle this is consistent with inguinal hernia with fat herniation into the left scrotal sac. Ultrasound finding is consistent with physical exam as well as a history of the pain. No evidence of incarceration at this time. Patient is discharged to home, instructed to use stool softeners, supportive underwear including briefs or possible jockstrap and to follow-up with surgery as an outpatient for possible hernia repair. Given signs of incarceration to watch for and discharged to home. 04/08/17 03:03 Urinalysis shows trace ketones, 100 protein, small bilirubin but no signs of blood or infection. (ESTEFANIA FLORES) - Vital Signs Vital signs: Temp Pulse Resp BP Pulse Ox 98.1 F 79 18 155/87 H 98 04/07/17 23:29 04/07/17 23:29 04/07/17 23:29 04/07/17 23:29 04/08/17 01:05 - Laboratory Laboratory results interpreted by me: 04/08/17 04/08/17 04/08/17 01:10 01:10 02:02 RDW 14.7 H Plt Count 40 L Chloride 109 H Total Bilirubin 1.6 H Albumin 3.4 L Urine Protein 100 H Urine Ketones TRACE H Urine Bilirubin SMALL H Urine Urobilinogen 4.0 H Urine Ascorbic Acid 20 H Discharge <JOSSELIN JACKSON - Last Filed: 04/08/17 06:34> <ESTEFANIA FLORES - Last Filed: 04/08/17 06:37> - Discharge Clinical Impression: Reducible left inguinal hernia, Thrombocytopenia Condition: Stable Disposition: HOME, SELF-CARE Additional Instructions: Hernia You have a hernia. A hernia forms at a weak spot in the abdominal wall. Bowel slips out of the abdominal cavity into the weak spot. Hernias tend to occur in the groin (especially in males), the fold of the thigh, the naval, or at a surgical scar. Surgical repair of the defect is usually necessary. The problem tends to get worse. It's important that you follow up as recommended. For now, you should avoid straining, heavy lifting, and vigorous exercise. Please wear supportive underwear. Complications occur if the hernia becomes tightly stuck. You should come back immediately if the area becomes increasingly painful, swollen, or discolored, or if you develop abdominal pain and vomiting. Please dissolve 1 scoop of MiraLAX in a glass of water once a day to treat constipation. You may increase to twice a day if needed to create soft bowel movements and you may decrease to every other day if you develop diarrhea. Referrals: RENAN SAGE MD [ACTIVE STAFF] - Follow up in 1 month ABIGAIL YAÑEZ MD [ACTIVE STAFF] - Follow up as needed AKASH GALLO MD [EMERITUS] - Follow up as needed Scribe Attestation: 04/08/17 06:37 I personally performed the services described in the documentation, reviewed and edited the documentation which was dictated to the scribe in my presence, and it accurately records my words and actions. (ESTEFANIA FLORES) Scribe Documentation - Scribe Written by Dg:: Dg Mary, 04/08/2017 4:25 acting as scribe for :: Mary <JOSSELIN JACKSON - Last Filed: 04/08/17 06:34>
--- NOTE | 2017-04-08 01:09 | RADIOLOGY REPORT (SQ) ---
EXAM DESCRIPTION: U/S SCROTUM W/DOPPLER COMPLETED DATE/TIME: 04/08/2017 12:48 am REASON FOR STUDY: left groin and testicle pain COMPARISON: None. TECHNIQUE: Static and realtime sampson scale imaging of the scrotum and testes. Selected color Doppler and spectral images recorded to document blood flow. LIMITATIONS: None. FINDINGS: RIGHT: TESTICLE: Measures 3.7 x 2.6 x 1.9 cm. Normal echotexture. Normal blood flow. No mass. EPIDIDYMIS: Measures 1.0 x 1.3 x 1.0 cm. There is a 6 x 6 x 5 mm cyst. HYDROCELE OR VARICOCELE: Small hydrocele with mobile debris. No varicocele. HERNIA OR EXTRA-TESTICULAR MASS: No. LEFT: TESTICLE: Measures 4.0 x 2.6 x 1.9 cm. Normal echotexture. Normal blood flow. No mass. EPIDIDYMIS: Measures 0.7 x 1.0 x 0.5 cm. There is a 4 x 3 x 3 mm cyst. HYDROCELE OR VARICOCELE: No hydrocele. Small varicocele measuring up to 3 mm. HERNIA OR EXTRA-TESTICULAR MASS: At the area of patient's pain, at the left inguinal region, there is prominent hyperechoic soft tissue density extending into the left scrotal sac and slightly displacin g the left testicle. IMPRESSION: No sonographic evidence for testicular mass or torsion. Small bilateral epididymal cysts. Small right-sided hydrocele with mobile debris, suggestive of chronicity. Small left-sided varicocele. Prominent hyperechoic soft tissue density at the area of patient's pain at the left inguinal region, may represent an inguinal hernia with fat herniation into the left scrotal sac. TECHNICAL DOCUMENTATION: JOB ID: [id number] [place]-[id number] 2010 [employer]- All Rights Reserved
[2017-04-08 01:25] LABS: ABSOLUTE EOSINOPHILS # (AUTO) 0.1 10^3/uL (0.0-0.6); ABSOLUTE LYMPHOCYTES (AUTO) 2.1 10^3/uL (0.5-4.7); ABSOLUTE MONOCYTES (AUTO) 0.7 10^3/uL (0.1-1.4); ABSOLUTE NEUT (AUTO) 4.7 10^3/uL (1.7-8.2); BASOPHILS % (AUTO) 0.5 % (0-2); EOSINOPHILS % (AUTO) 1.5 % (0-6); HEMOGLOBIN 14.3 g/dL (13.5-17.0); MEAN CORPUSCULAR HEMOGLOBIN 32.4 pg (27.0-33.4); MEAN CORPUSCULAR HGB CONC 34.1 g/dL (32.0-36.0); MEAN CORPUSCULAR VOLUME 95 fl (80-97); RED BLOOD COUNT 4.43 10^6/uL (4.35-5.55); RED CELL DISTRIBUTION WIDTH 14.7 % (11.5-14.0); WHITE BLOOD COUNT 7.7 10^3/uL (4.0-10.5)
[2017-04-08 01:42] LABS: HGB HCT DIFFERENCE 0.9
[2017-04-08 01:48] LABS: ALANINE AMINOTRANSFERASE 51 U/L (21-72); ALBUMIN 3.4 g/dL (3.5-5.0); ALKALINE PHOSPHATASE 98 U/L (38-126); ANION GAP 8 (5-19); ASPARTATE AMINO TRANSFERASE 53 U/L (17-59); BILIRUBIN,DIRECT 0.4 mg/dL (0.0-0.4); BILIRUBIN,TOTAL 1.6 mg/dL (0.2-1.3); BLOOD UREA NITROGEN 14 mg/dL (7-20); CARBON DIOXIDE 24 mmol/L (22-30); CHLORIDE 109 mmol/L (98-107); CREATININE RESULT 0.84 mg/dL (0.52-1.25); GLUCOSE 83 mg/dL (75-110); POTASSIUM 4.1 mmol/L (3.6-5.0); SODIUM 140.7 mmol/L (137-145)
[2017-04-08 02:56] LABS: APPEARANCE,URINE CLOUDY; BILIRUBIN,URINE SMALL (NEGATIVE); GLUCOSE, URINE NEGATIVE (NEGATIVE); KETONES,URINE TRACE mg/dL (NEGATIVE); LEUKOCYTE ESTERASE,URINE NEGATIVE (NEGATIVE); NITRITE,URINE NEGATIVE (NEGATIVE); PROTEIN,URINE 100 mg/dL (NEGATIVE); URINE SPECIFIC GRAVITY 1.042
[2017-04-08 06:48] VITALS: BP 141/88
== END 2017-04-08 03:55 | disposition home or self-care (01) ==
LOC: ER 23:19
DX: K40.90 Unilateral inguinal hernia, without obstruction or gangrene, not specified as recurrent (principal); D69.6 Thrombocytopenia, unspecified; N50.812 Left testicular pain; F17.200 Nicotine dependence, unspecified, uncomplicated; Z86.718 Personal history of other venous thrombosis and embolism; E78.00 Pure hypercholesterolemia, unspecified; I10 Essential (primary) hypertension; Z88.3 Allergy status to other anti-infective agents; Z88.6 Allergy status to analgesic agent; Z86.73 Personal history of transient ischemic attack (TIA), and cerebral infarction without residual deficits; Z86.19 Personal history of other infectious and parasitic diseases; Z96.652 Presence of left artificial knee joint
CPT/HCPCS: 36415; 76870; 80053; 81001; 85025; 93976; 99284

== ENCOUNTER 2017-04-13 21:56 | Emergency (ER) | payer MEDICARE ==
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
--- NOTE | 2017-04-14 00:38 | RADIOLOGY REPORT (SQ) ---
EXAM DESCRIPTION: CT HEAD WITHOUT COMPLETED DATE/TIME: 04/14/2017 12:23 am REASON FOR STUDY: fall headache COMPARISON: None. TECHNIQUE: Axial images acquired through the brain without intravenous contrast. Images reviewed wi th bone, brain and subdural windows. Images stored on PACS. All CT scanners at this facility use dose modulation, iterative reconstruction, and/or weight based d osing when appropriate to reduce radiation dose to as low as reasonably achievable (ALARA). [facility]: Dose Right [facility]: CareDose [facility]: Dose Right [facility]: Teradose 4D [facility]: Smart Savor RADIATION DOSE: Up-to-date CT equipment and radiation dose reduction techniques were employed. CTDIv ol: 55.3 mGy. DLP: 996 mGy-cm. mGy. LIMITATIONS: None. FINDINGS: VENTRICLES: Normal size and contour. CEREBRUM: No masses. No hemorrhage. No midline shift. Normal sampson/white matter differentiation. N o evidence for acute infarction. CEREBELLUM: No masses. No hemorrhage. No alteration of density. No evidence for acute infarction. EXTRAAXIAL SPACES: No fluid collections. No masses. ORBITS AND GLOBE: No intra- or extraconal masses. Normal contour of globe without masses. CALVARIUM: No fracture. PARANASAL SINUSES: Soft tissue in the left maxillary sinus. SOFT TISSUES: No mass or hematoma. OTHER: No other significant finding. IMPRESSION: NORMAL BRAIN CT WITHOUT CONTRAST. LEFT MAXILLARY SINUS DISEASE. TECHNICAL DOCUMENTATION: JOB ID: [id number] Quality ID # [id number]: Final reports with documentation of one or more dose reduction techniques (e.g., Au tomated exposure control, adjustment of the mA and/or kV according to patient size, use of iterative reconstruction technique) 2010 [employer]- All Rights Reserved
--- NOTE | 2017-04-14 00:40 | RADIOLOGY REPORT (SQ) ---
EXAM DESCRIPTION: CT CERVICAL SPINE WITHOUT COMPLETED DATE/TIME: 04/14/2017 12:23 am REASON FOR STUDY: fall pain COMPARISON: None. TECHNIQUE: Axial images acquired through the cervical spine without intravenous contrast. Images re viewed with lung, soft tissue and bone windows. Reconstructed coronal and sagittal MPR images review ed. Images stored on PACS. All CT scanners at this facility use dose modulation, iterative reconstruction, and/or weight based d osing when appropriate to reduce radiation dose to as low as reasonably achievable (ALARA). [facility]: Dose Right [facility]: CareDose [facility]: Dose Right [facility]: Teradose 4D [facility]: Smart Semantra RADIATION DOSE: Up-to-date CT equipment and radiation dose reduction techniques were employed. CTDIv ol: 18.9 mGy. DLP: 396 mGy-cm. mGy. LIMITATIONS: None. FINDINGS: ALIGNMENT: Anatomic. MINERALIZATION: Normal. VERTEBRAL BODIES: No fractures or dislocation. DISCS: Mild disc space narrowing with osteophytes. FACETS, LATERAL MASSES, POSTERIOR ELEMENTS: No fractures. No dislocation. Facet arthropathy. No ac saxman findings. HARDWARE: None in the spine. VISUALIZED RIBS: No fractures. LUNG APICES AND SOFT TISSUES: No significant or acute findings. OTHER: No other significant finding. IMPRESSION: DEGENERATIVE CHANGES. NO ACUTE FINDINGS IN THE CERVICAL SPINE. TECHNICAL DOCUMENTATION: JOB ID: [id number] Quality ID # [id number]: Final reports with documentation of one or more dose reduction techniques (e.g., Au tomated exposure control, adjustment of the mA and/or kV according to patient size, use of iterative reconstruction technique) 2010 [employer]- All Rights Reserved
--- NOTE | 2017-04-14 00:43 | RADIOLOGY REPORT (SQ) ---
EXAM DESCRIPTION: SHOULDER LEFT 2 OR MORE VIEWS COMPLETED DATE/TIME: 04/14/2017 12:33 am REASON FOR STUDY: fall pain COMPARISON: None. NUMBER OF VIEWS: Three views. TECHNIQUE: Internal rotation, external rotation, and Y view images acquired of the left shoulder. LIMITATIONS: None. FINDINGS: MINERALIZATION: Normal. BONES: No acute fracture or dislocation. No worrisome bone lesions. JOINTS: No dislocation. VISUALIZED LUNGS AND RIBS: No pneumothorax. No rib fracture. SOFT TISSUES: No radiopaque foreign body. OTHER: No other significant finding. IMPRESSION: NEGATIVE STUDY OF THE LEFT SHOULDER. NO RADIOGRAPHIC EVIDENCE OF ACUTE INJURY. TECHNICAL DOCUMENTATION: JOB ID: [id number] [employer]- All Rights Reserved
[2017-04-14] MEDS ORDERED: IBUPROFEN 600 MG TABLET PO ONE (01:38)
[2017-04-14 02:07] VITALS: BP 139/88
== END 2017-04-14 01:50 | disposition home or self-care (01) ==
LOC: ER 21:56
DX: S43.402A Unspecified sprain of left shoulder joint, initial encounter (principal); W01.0XXA Fall on same level from slipping, tripping and stumbling without subsequent striking against object, initial encounter; Y92.009 Unspecified place in unspecified non-institutional (private) residence as the place of occurrence of the external cause; F17.200 Nicotine dependence, unspecified, uncomplicated; E78.00 Pure hypercholesterolemia, unspecified; I10 Essential (primary) hypertension; Z88.3 Allergy status to other anti-infective agents; Z79.02 Long term (current) use of antithrombotics/antiplatelets; Z88.6 Allergy status to analgesic agent; Z86.718 Personal history of other venous thrombosis and embolism; Z86.73 Personal history of transient ischemic attack (TIA), and cerebral infarction without residual deficits; Z86.19 Personal history of other infectious and parasitic diseases; Z96.652 Presence of left artificial knee joint
CPT/HCPCS: 70450; 72125; 99284

== ENCOUNTER 2017-05-03 19:53 | Emergency (ER) | payer MEDICARE ==
[2017-05-03] MEDS ORDERED: DIAZEPAM INJ 10 MG/2 ML DISP.SYRIN IM ONE (20:33)
--- NOTE | 2017-05-03 20:35 | ER Document Report ---
HPI - HPI Patient complains to provider of: left shoulder pain Pain Level: 5 Context: Patient is a 56 year old male that comes to the ED for chief complaint of left shoulder pain. He fell on the same shoulder on 04/13/17, has had ongoing pain and stiffness, and over the past several days he tried to move out of his house and now he has increased pain, increased stiffness, and reduced range of motion. He denies another impact injury, numbness, redness or swelling, fever. PMH of neck surgery. On coumadin for PE history, also has hypertension. - REPRODUCTIVE Reproductive: DENIES: : - DERM Skin Color: Normal, [place] Past Medical History - General Information source: Patient - Social History Smoking Status: Never Smoker Frequency of alcohol use: None Drug Abuse: None Lives with: Family Family History: None - Past Medical History Cardiac Medical History: Reports: Hx DVT, Hx Hypercholesterolemia, Hx Hypertension Neurological Medical History: Reports: Hx Cerebrovascular Accident - TIA Renal/ Medical History: Denies: Hx Peritoneal Dialysis GI Medical History: Reports: Hx Hepatitis - History of hepatitis C. He has had treatment. Musculoskeltal Medical History: Reports Hx Arthritis Infectious Medical History: Reports: Hx Hepatitis - History of hepatitis C. He has had treatment. Past Surgical History: Reports: Hx Orthopedic Surgery - Has had cervical spine surgery, L Knee Replacement, Hx Vascular Surgery - removal of DVTs in legs, IVC filter placed - Immunizations Hx Diphtheria, Pertussis, Tetanus Vaccination: No Vertical Provider Document - CONSTITUTIONAL General Appearance: WD/WN, Mild Distress - Patient holding his left arm close to his body, appears to be in some pain, moves very stiffly - INFECTION CONTROL TRAVEL OUTSIDE OF THE U.S. IN LAST 30 DAYS: No - HEENT HEENT: Atraumatic, Normocephalic - NECK Neck: Normal Inspection - RESPIRATORY Respiratory: Breath Sounds Normal, No Respiratory Distress O2 Sat by Pulse Oximetry: 97 - CARDIOVASCULAR Cardiovascular: Regular Rate, Regular Rhythm - GI/ABDOMEN Gastrointestinal: Abdomen Soft, Abdomen Non-Tender - MUSCULOSKELETAL/EXTREMETIES Musculoskeletal/Extremeties: Tender - Patient with very limited ability to turn the neck to the left laterally, able to extend and flex. Patient also has very limited range of motion of the left shoulder and can only raise the arm to approximately 90. He has tenderness over the supraspinatus and trapezius muscles, minimally over the deltoid. No swelling, erythema, normal distal strength, sensation, capillary refill, pulses. Normal musculoskeletal exam otherwise. negative: FROM Course - Re-evaluation Re-evalutation: 05/03/17 20:35 Looking in records patient had a CT of the neck and an x-ray of the shoulder with no concerning abnormalities. Patient has no loss of sensation, has normal distal pulses and capillary refill, has normal distal sensation, has limited lateral rotation of the neck to the left with tenderness over the supraspinatus and trapezius muscles and also over the general deltoid area. He has limited and painful range of motion with inability to get his arm past 90. Consistent with suspected rotator cuff injury and muscle spasm. 05/03/17 21:01 Patient was given Valium IM because of the amount of tightness in his neck and shoulders with his discomfort. On reevaluation patient is much improved although not resolved. Patient will be given this medication at home to continue management, he states he is already planning to follow-up with appointment with [facility], discussed return precautions. Patient states understanding and agreement. - Vital Signs Vital signs: Temp Pulse Resp BP Pulse Ox 98.6 F 73 18 157/88 H 97 05/03/17 20:11 05/03/17 20:11 05/03/17 20:11 05/03/17 20:11 05/03/17 20:11 Discharge - Discharge Clinical Impression: Muscle spasm Left shoulder pain Qualifiers: Chronicity: acute Qualified Code(s): M25.512 - Pain in left shoulder Injury of left shoulder Qualifiers: Encounter type: initial encounter Qualified Code(s): S49.92XA - Unspecified injury of left shoulder and upper arm, initial encounter Condition: Stable Disposition: HOME, SELF-CARE Additional Instructions: The examination is consistent with muscle spasm as well as suspected injury to the rotator cuff. Take the valium along with ibuprofen as prescribed, apply heat to your neck/ shoulder area, perform pendulum and walk up the wall movements gently to begin regaining your range of motion. Follow up with Orthopedics for additional management. Return to the ED for any concerning or worsening symptoms - numbness, severe pain, etc. Prescriptions: Diazepam [Valium 5 mg Tablet] 1 - 2 tab PO TID #15 tablet
[2017-05-03] MEDS ORDERED: HYDROCODONE/ACETAMINOPHEN 5-325 MG 6 TAB/DSPK PO PRN (21:12)
[2017-05-03 21:27] VITALS: BP 167/89
== END 2017-05-03 21:27 | disposition home or self-care (01) ==
LOC: ER 19:53
DX: S49.92XA Unspecified injury of left shoulder and upper arm, initial encounter (principal); X58.XXXA Exposure to other specified factors, initial encounter; M62.838 Other muscle spasm; M25.512 Pain in left shoulder; I10 Essential (primary) hypertension; Z86.711 Personal history of pulmonary embolism; Z79.01 Long term (current) use of anticoagulants; Z86.718 Personal history of other venous thrombosis and embolism; Z86.73 Personal history of transient ischemic attack (TIA), and cerebral infarction without residual deficits
CPT/HCPCS: 99283; 96372; J3360; A9270

== ENCOUNTER 2017-06-08 12:53 | Emergency (ER) | payer MEDICARE ==
[2017-06-08] MEDS ORDERED: OXYCODONE-ACETAMINOPHEN 5-325 MG TABLET PO ONE (13:49)
--- NOTE | 2017-06-08 13:50 | ER Document Report ---
ED Medical Screen (RME) - General Chief Complaint: Groin Pain Stated Complaint: ABDOMINAL PAIN Time Seen by Provider: 06/08/17 13:15 Mode of Arrival: Wheelchair Information source: Patient TRAVEL OUTSIDE OF THE U.S. IN LAST 30 DAYS: No - HPI Patient complains to provider of: Right groin pain Onset: Yesterday Notes: 06/08/17 13:49 Patient is a 56-year-old male who presents to the room today complaining of right groin pain that started yesterday, he was moving and 1 of the objects on the moving truck started to fall off and he went to catch it, felt a ripping searing pain in his right groin, tried to wait it out but pain continues overnight and into today, he has a history of bilateral inguinal hernia repair with mesh, as well as umbilical hernia repair - Related Data Allergies/Adverse Reactions: erythromycin base Allergy (Verified 06/08/17 13:10) hydromorphone [From Dilaudid] Adverse Reaction (Verified 06/08/17 13:10) palpations Past Medical History - Past Medical History Cardiac Medical History: Reports: Hx DVT, Hx Hypercholesterolemia, Hx Hypertension Neurological Medical History: Reports: Hx Cerebrovascular Accident - TIA Renal/ Medical History: Denies: Hx Peritoneal Dialysis GI Medical History: Reports: Hx Hepatitis - History of hepatitis C. He has had treatment. Musculoskeltal Medical History: Reports Hx Arthritis Infectious Medical History: Reports: Hx Hepatitis - History of hepatitis C. He has had treatment. Past Surgical History: Reports: Hx Orthopedic Surgery - Has had cervical spine surgery, L Knee Replacement, Hx Vascular Surgery - removal of DVTs in legs, IVC filter placed - Immunizations Hx Diphtheria, Pertussis, Tetanus Vaccination: No Physical Exam - Vital signs Vitals: Temp Pulse Resp BP Pulse Ox 97.8 F 105 H 20 164/95 H 96 06/08/17 13:07 06/08/17 13:07 06/08/17 13:07 06/08/17 13:07 06/08/17 13:07 Course - Vital Signs Vital signs: Temp Pulse Resp BP Pulse Ox 97.8 F 105 H 20 164/95 H 96 06/08/17 13:07 06/08/17 13:07 06/08/17 13:07 06/08/17 13:07 06/08/17 13:07
[2017-06-08 14:28] LABS: ABSOLUTE EOSINOPHILS # (AUTO) 0.1 10^3/uL (0.0-0.6); ABSOLUTE LYMPHOCYTES (AUTO) 1.1 10^3/uL (0.5-4.7); ABSOLUTE MONOCYTES (AUTO) 0.6 10^3/uL (0.1-1.4); ABSOLUTE NEUT (AUTO) 2.9 10^3/uL (1.7-8.2); BASOPHILS % (AUTO) 0.2 % (0-2); EOSINOPHILS % (AUTO) 1.2 % (0-6); HEMATOCRIT 40.2 % (37.9-51.0); HEMOGLOBIN 13.6 g/dL (13.5-17.0); HGB HCT DIFFERENCE 0.6; LYMPHOCYTES % (AUTO) 23.4 % (13-45); MEAN CORPUSCULAR HEMOGLOBIN 33.1 pg (27.0-33.4); MEAN CORPUSCULAR HGB CONC 33.8 g/dL (32.0-36.0); MEAN CORPUSCULAR VOLUME 98 fl (80-97); MONOCYTES % (AUTO) 12.5 % (3-13); SEGMENTED NEUTROPHILS % (AUTO) 62.7 % (42-78); WHITE BLOOD COUNT 4.7 10^3/uL (4.0-10.5)
[2017-06-08 14:30] LABS: PROTHROMBIN TIME 15.4 SEC (11.4-15.4)
[2017-06-08 14:31] LABS: PARTIAL THROMBOPLASTIN TIME 33.6 SEC (23.5-35.8)
[2017-06-08 14:52] LABS: ALANINE AMINOTRANSFERASE 56 U/L (21-72); ALBUMIN 3.4 g/dL (3.5-5.0); ALKALINE PHOSPHATASE 109 U/L (38-126); ANION GAP 6 (5-19); ASPARTATE AMINO TRANSFERASE 66 U/L (17-59); BILIRUBIN,DIRECT 0.8 mg/dL (0.0-0.4); BILIRUBIN,TOTAL 2.1 mg/dL (0.2-1.3); BLOOD UREA NITROGEN 11 mg/dL (7-20); CALCIUM 9.7 mg/dL (8.4-10.2); CARBON DIOXIDE 25 mmol/L (22-30); CHLORIDE 107 mmol/L (98-107); CREATININE RESULT 0.62 mg/dL (0.52-1.25); GLUCOSE 89 mg/dL (75-110); SODIUM 138.3 mmol/L (137-145); TOTAL PROTEIN 6.4 g/dL (6.3-8.2)
[2017-06-08 15:11] LABS: APPEARANCE,URINE SLIGHTLY-CLOUDY; BILIRUBIN,URINE NEGATIVE (NEGATIVE); CALCIUM OXALATE CRYSTALS,URINE FEW /HPF; GLUCOSE, URINE NEGATIVE (NEGATIVE); KETONES,URINE NEGATIVE (NEGATIVE); LEUKOCYTE ESTERASE,URINE NEGATIVE (NEGATIVE); NITRITE,URINE NEGATIVE (NEGATIVE); PROTEIN,URINE NEGATIVE (NEGATIVE); URINE SPECIFIC GRAVITY 1.025
--- NOTE | 2017-06-08 15:40 | ER Document Report ---
ED GI/ - General Mode of Arrival: Wheelchair Information source: Patient TRAVEL OUTSIDE OF THE U.S. IN LAST 30 DAYS: No <JACK AGUILERA - Last Filed: 06/08/17 17:49> <STACEY QUILES - Last Filed: 06/09/17 00:36> - General Chief Complaint: Groin Pain Stated Complaint: ABDOMINAL PAIN Time Seen by Provider: 06/08/17 13:15 Notes: Patient is a 56 year old male that presents to the emergency department today with complaints of right groin pain. Patient states that he was attempting to move a refrigerator from the back of a truck when the person on the other side of the refrigerator "dropped it" and it caused immediate pain in his right groin radiating to his back. Patient states today he was throwing something into the dumpster and as he twisted he felt pain that "brought him to his knees ". Patient mentions that he has been off of his warfarin and atenolol for a month or more secondary to not having a PCP here in [place] and requests to be started back on those. (JACK AGUILERA) - Related Data Allergies/Adverse Reactions: erythromycin base Allergy (Verified 06/08/17 13:10) hydromorphone [From Dilaudid] Adverse Reaction (Verified 06/08/17 13:10) palpations Past Medical History - General Information source: Patient - Social History Smoking Status: Current Every Day Smoker Cigarette use (# per day): Yes Chew tobacco use (# tins/day): No Frequency of alcohol use: None Drug Abuse: None Lives with: Family Family History: None - Past Medical History Cardiac Medical History: Reports: Hx DVT, Hx Hypercholesterolemia, Hx Hypertension Neurological Medical History: Reports: Hx Cerebrovascular Accident - TIA GI Medical History: Reports: Hx Hepatitis - History of hepatitis C. He has had treatment. Musculoskeltal Medical History: Reports Hx Arthritis Infectious Medical History: Reports: Hx Hepatitis - History of hepatitis C. He has had treatment. Past Surgical History: Reports: Hx Abdominal Surgery - hernia, Hx Orthopedic Surgery - Has had cervical spine surgery, L Knee Replacement, Hx Vascular Surgery - removal of DVTs in legs, IVC filter placed - Immunizations Hx Diphtheria, Pertussis, Tetanus Vaccination: No <JACK AGUILERA - Last Filed: 06/08/17 17:49> Review of Systems - Review of Systems Constitutional: No symptoms reported EENT: No symptoms reported Cardiovascular: No symptoms reported Respiratory: No symptoms reported Gastrointestinal: No symptoms reported Genitourinary: No symptoms reported Male Genitourinary: No symptoms reported Musculoskeletal: See HPI, Other - right groin pain Skin: No symptoms reported Hematologic/Lymphatic: No symptoms reported Neurological/Psychological: No symptoms reported -: Yes All other systems reviewed and negative <JACK AGUILERA - Last Filed: 06/08/17 17:49> Physical Exam <JACK AGUILERA - Last Filed: 06/08/17 17:49> <STACEY QUILES - Last Filed: 06/09/17 00:36> - Vital signs Vitals: Temp Pulse Resp BP Pulse Ox 97.8 F 105 H 20 164/95 H 96 06/08/17 13:07 06/08/17 13:07 06/08/17 13:07 06/08/17 13:07 06/08/17 13:07 - Notes Notes: Physical Exam: General: Alert, appears well. HEENT: Normocephalic. Atraumatic. PERRL. Extraocular movements intact. Oropharynx clear. Neck: Supple. Non-tender. Respiratory: No respiratory distress. Clear and equal breath sounds bilaterally. Cardiovascular: Regular rate and rhythm. Abdominal: Normal Inspection. Non-tender. No distension. Normal Bowel Sounds. Back: Non-tender. No deformity or step off. Extremities: Moves all four extremities. Upper extremities: Normal inspection. Normal ROM. Lower extremities: Normal inspection. No edema. Normal ROM. Neurological: Normal cognition. AAOx4. Normal speech. Psychological: Normal affect. Normal Mood. Skin: Warm. Dry. Normal color.- (JACK AGUILERA) Course - Laboratory Result Diagrams: 06/08/17 14:10 06/08/17 14:10 <JACK AGUILERA - Last Filed: 06/08/17 17:49> - Laboratory Result Diagrams: 06/08/17 14:10 06/08/17 14:10 <STACEY QUILES - Last Filed: 06/09/17 00:36> - Re-evaluation Re-evalutation: 06/08 Patient with pulled groin. No evidence for hernia. Reproducible pain. Pain with movement. Patient also with history of DVT and is not been able to get his Coumadin recently. Patient has a subtherapeutic INR. Patient will be started on Lovenox, Coumadin, and is to follow-up with hematology patient also with thrombocytopenia which is chronic for him. Patient has been on anticoagulation before with thrombocytopenia and states that it has not been a problem. As he has an extensive DVT history and IVC filter. No shortness of breath or chest pain at this time. Return if any worsening or concerning symptoms. Patient states that he needs to leave as he needs to continue moving things at his house. Recommend that he stop lifting at this time to avoid further injury. (STACEY QUILES) - Vital Signs Vital signs: Temp Pulse Resp BP Pulse Ox 97.8 F 88 18 153/88 H 99 06/08/17 16:55 06/08/17 16:55 06/08/17 16:55 06/08/17 16:55 06/08/17 16:55 - Laboratory Laboratory results interpreted by me: 06/08/17 06/08/17 06/08/17 14:10 14:10 14:10 RBC 4.10 L MCV 98 H RDW 15.0 H Plt Count 38 L Total Bilirubin 2.1 H Direct Bilirubin 0.8 H AST 66 H Albumin 3.4 L Urine Urobilinogen 4.0 H Discharge <JACK AGUILERA - Last Filed: 06/08/17 17:49> <STACEY QUILES - Last Filed: 06/09/17 00:36> - Discharge Clinical Impression: Groin injury Qualifiers: Encounter type: initial encounter Qualified Code(s): S39.91XA - Unspecified injury of abdomen, initial encounter Hypertension Qualifiers: Hypertension type: unspecified Qualified Code(s): I10 - Essential (primary) hypertension DVT (deep venous thrombosis) Qualifiers: DVT location: lower extremity Affected thrombotic vein of extremity: other lower extremity vein Chronicity: unspecified Laterality: unspecified laterality Qualified Code(s): I82.499 - Acute embolism and thrombosis of other specified deep vein of unspecified lower extremity Condition: Stable Disposition: HOME, SELF-CARE Instructions: [facility], DVT Outpatient Treatment ([facility]), Family Physicians / Practices, Low Back Pain ([facility]), Muscle Strain ([facility]) Additional Instructions: Please call this week to see the inspector machine cut glass. Prescriptions: Warfarin Sodium [Coumadin 5 mg Tablet] 5 mg PO QHS #30 tablet Oxycodone HCl/Acetaminophen [Percocet 5-325 mg Tablet] 1 tab PO Q6HP PRN #20 tablet PRN Reason: Atenolol [Tenormin 100 mg Tablet] 100 mg PO DAILY #30 tablet Enoxaparin Sodium [Lovenox Inj 120 mg/0.8 ml Disp.syrin] 115 mg SUBCUT Q12 #7 disp.syrin Lidocaine [Lidoderm 5% (700 mg) Transdermal Patch] 1 patch TP DAILY PRN #30 adh..patch PRN Reason: Referrals: DELMI PEARSON MD [ACTIVE STAFF] - Follow up in 3-5 days Scribe Attestation: 06/09/17 00:36 I personally performed the services described in the documentation, reviewed and edited the documentation which was dictated to the scribe in my presence, and it accurately records my words and actions. (STACEY QUILES) Scribe Documentation - Scribe Written by Dg:: Dg Mckinney, 06/08/[id number] acting as scribe for :: Wander <JACK AGUILERA - Last Filed: 06/08/17 17:49>
[2017-06-08] MEDS ORDERED: WARFARIN SODIUM 5 MG TABLET PO ONE (15:51)
[2017-06-08] MEDS ORDERED: ENOXAPARIN SODIUM INJ 120 MG/0.8 ML DISP.SYRIN SUBCUT SCH (16:00)
[2017-06-08 16:56] VITALS: BP 153/88
== END 2017-06-08 16:58 | disposition home or self-care (01) ==
LOC: ER 12:53
DX: S39.91XA Unspecified injury of abdomen, initial encounter (principal); I82.499 Acute embolism and thrombosis of other specified deep vein of unspecified lower extremity; I10 Essential (primary) hypertension; R10.30 Lower abdominal pain, unspecified; R10.31 Right lower quadrant pain; F17.210 Nicotine dependence, cigarettes, uncomplicated; X58.XXXA Exposure to other specified factors, initial encounter
CPT/HCPCS: 99283; 96372; 36415; 85025; 85610; 85730; 80053; 81001; J1650; A9270 ×2

== ENCOUNTER 2017-07-24 21:29 | Emergency (ER) | payer MEDICARE ==
[2017-07-24 21:52] VITALS: BP 153/88
[2017-07-24] MEDS ORDERED: LIDOCAINE 5% (700 MG) TRANSDERMAL ADH..PATCH TP ONE (22:51)
[2017-07-24] MEDS ORDERED: HYDROCODONE/ACETAMINOPHEN 5-325 MG 6 TAB/DSPK PO PRN (22:52)
[2017-07-24] MEDS ORDERED: DEXAMETHASONE SOD PHOS INJ 10 MG/1 ML VIAL IM ONE (22:52)
--- NOTE | 2017-07-24 23:00 | ER Document Report ---
HPI - HPI Pain Level: 5 Notes: Patient is a 56-year-old male who presents the ED complaining of low back pain 2 weeks status post injury while moving a refrigerator. Patient states that he was originally evaluated here at the time and did not have any imaging done and subsequently went to another hospital because pain persisted and found out that he has a "crushed disc" and has an appointment with a neurosurgeon in 6 days. Patient states that he was told by his neurosurgeon that if the pain continues to be bad that he needs to come to the ED for any further pain management until his appointment on . Patient states that he does use [id number] meds with minimal relief. Patient states that he does have clotting issues with DVT and coded on the table about 2 months ago and is currently on blood thinners. He is still eating and drink without difficulties. He still urinating normally and having normal bowel movements. The pain radiates across his back but nothing distally. He denies any surgeries or procedures to his back. Denies any diabetes. Denies any IV drug use or smoking. Patient states that he was given Percocet from the last hospital which did help ease the pain, and he used it very responsibly only taking half a tablet only for breakthrough pain. Patient states that he has never had any issues with narcotics before any drug abuse problems. Patient states he primarily uses them at night to help him sleep because movements make it worse. Nothing seems to improve his pain. Patient states that on occasion he will have to have his family help him get up because of the pain is back. Denies any headache, fever, URI, sore throat, chest pain, palpitations, syncope, cough, shortness of breath, wheeze, dyspnea, abdominal pain, nausea/vomiting/diarrhea, urinary retention, dysuria, hematuria, loss of control of bowel or bladder, numbness/tingling, saddle anesthesia, muscle paralysis/weakness, or rash. - ROS Notes: REVIEW OF SYSTEMS: CONSTITUTIONAL : Denies fever, chills, or sweats. Denies recent illness. EENT: Denies eye, ear, throat, or mouth pain or symptoms. Denies nasal or sinus congestion or discharge. Denies throat, tongue, or mouth swelling or difficulty swallowing. CARDIOVASCULAR: Denies chest pain. Denies palpitations or racing or irregular heart beat. Denies ankle edema. RESPIRATORY: Denies cough, cold, or chest congestion. Denies shortness of breath, difficulty breathing, or wheezing. GASTROINTESTINAL: Denies abdominal pain or distention. Denies nausea, vomiting , or diarrhea. Denies blood in vomitus, stools, or per rectum. Denies black, tarry stools. Denies constipation. GENITOURINARY: Denies difficulty urinating, painful urination, burning, frequency, blood in urine, or discharge. MUSCULOSKELETAL: see hpi SKIN: Denies rash, lesions or sores. NEUROLOGICAL: Denies confusion or altered mental status. Denies passing out or loss of consciousness. Denies dizziness or lightheadedness. Denies headache. Denies weakness or paralysis or loss of use of either side. Denies problems with speech. Denies sensory loss, numbness, or tingling. ALL OTHER SYSTEMS REVIEWED AND NEGATIVE. Dictation was performed using [employer] voice recognition software - CARDIOVASCULAR Cardiovascular: DENIES: Chest pain - REPRODUCTIVE Reproductive: DENIES: : - DERM Skin Color: Normal, [place] Past Medical History - Social History Smoking Status: Never Smoker Family History: None Patient has suicidal ideation: No Patient has homicidal ideation: No - Past Medical History Cardiac Medical History: Reports: Hx DVT, Hx Hypercholesterolemia, Hx Hypertension Neurological Medical History: Reports: Hx Cerebrovascular Accident - TIA Renal/ Medical History: Denies: Hx Peritoneal Dialysis GI Medical History: Reports: Hx Hepatitis - History of hepatitis C. He has had treatment. Musculoskeltal Medical History: Reports Hx Arthritis Infectious Medical History: Reports: Hx Hepatitis - History of hepatitis C. He has had treatment. Past Surgical History: Reports: Hx Abdominal Surgery - hernia, Hx Orthopedic Surgery - Has had cervical spine surgery, L Knee Replacement, Hx Vascular Surgery - removal of DVTs in legs, IVC filter placed - Immunizations Hx Diphtheria, Pertussis, Tetanus Vaccination: No Vertical Provider Document - CONSTITUTIONAL Agree With Documented VS: Yes Notes: PHYSICAL EXAMINATION: GENERAL: Well-appearing, well-nourished and in no acute distress. A&Ox4 LUNGS: Breath sounds clear to auscultation bilaterally and equal. No wheezes rales or rhonchi. HEART: Regular rate and rhythm without murmurs, rubs, gallops. ABDOMEN: Soft, nontender, nondistended abdomen. No guarding, no rebound. No masses appreciated. Normal bowel sounds present. No CVA tenderness bilaterally. No seatbelt sign. Musculoskeletal: Ext b/l: FROM to passive/active. Strength 5+/5. No deficits noted. No bony tenderness of extremities. Back: LROM to passive/active to flexion/extension. Strength 4+/5 due to pain. No stepoffs, or deformities. + vertebral/facet tenderness to the L-spine with muscle spasms noted b/l. No other bony tenderness or ecchymosis. SLR negative b/l. Extremities: No cyanosis, clubbing, or edema b/l. Peripheral pulses 2+. Capillary refill less than 2 seconds. NEUROLOGICAL: MMSE intact. Cranial nerves grossly intact. Normal speech, ataxic gait. Normal sensory, motor exams. Reflexes 2+ b/l. PSYCH: Normal mood, normal affect. SKIN: Warm, Dry, normal turgor, no rashes or lesions noted. - INFECTION CONTROL TRAVEL OUTSIDE OF THE [place] IN LAST 30 DAYS: No - RESPIRATORY O2 Sat by Pulse Oximetry: 98 Course - Re-evaluation Re-evalutation: 07/24/17 23:00 Patient is an afebrile, well-hydrated, 56-year-old male who presents the ED with low back pain. Vitals are stable. PE is otherwise unremarkable for any focal neurological deficits. Decadron 10 mg given IM today along with a Lidoderm patch. Low suspicion for any meningitis, fracture, expanding/ruptured AAA, cauda equina syndrome, epidural mass lesion/abscess, herniated disc causing severe spinal stenosis, or other systemic infection at this time. Patient is aware that his condition can change from initial presentation and that he needs monitor symptoms closely for any acute changes. During evaluation of patient, I do notice that he does struggle with his ADLs because of the pain and discomfort that he is in. Seeing that the pain is relatively acute with imaging findings and a pending consult with neurosurgery in 6 days, I will send him home with a norco dispense pack (6 tabs only that he needs to make last until then) and baclofen. Recheck with your PCM in 3-5 days. Keep consult with your neurosurgeon. Return to the ED with any worsening/concerning symptoms otherwise as reviewed in discharge. Patient is in agreement. - Vital Signs Vital signs: Temp Pulse Resp BP Pulse Ox 98.4 F 76 16 153/88 H 98 07/24/17 21:49 07/24/17 21:49 07/24/17 21:49 07/24/17 21:49 07/24/17 21:49 Discharge - Discharge Clinical Impression: Low back pain Qualifiers: Chronicity: acute Back pain laterality: midline Sciatica presence: without sciatica Qualified Code(s): M54.5 - Low back pain Condition: Stable Disposition: HOME, SELF-CARE Instructions: Low Back Pain ([facility]), Ice Packs ([facility]), Warm Packs ([facility]), Stretching Exercises for the Back ([facility]), Oral Narcotic Medication ([facility]) Additional Instructions: Rest, Ice, Compression, Elevation Tylenol/ibuprofen as needed Light stretches daily Strength exercises as able Moist heat and massage may help F/u with your PCP in 3-5 days for a recheck Keep consult with her neurosurgeon in 6 days Return to the ED with any worsening symptoms and/or development of fever, headache, chest pain, palpitations, syncope, shortness of breath, trouble breathing, abdominal pain, n/v/d, blood in stool/urine, loss of control of bowel /bladder, urinary retention, muscle weakness/paralysis, saddle anesthesia, numbness/tingling, or other worsening symptoms that are concerning to you. Prescriptions: Baclofen [Baclofen 10 mg Tablet] 5 mg PO BID PRN #10 tablet PRN Reason: Forms: Elevated Blood Pressure Referrals: STEVEN VILLALOBOS MD [Primary Care Provider] - Follow up in 3-5 days Neurosurgery [Provider Group] - 07/30/17
== END 2017-07-24 23:19 | disposition home or self-care (01) ==
LOC: ER 21:29
DX: M54.5 Low back pain (principal); I10 Essential (primary) hypertension; Z86.718 Personal history of other venous thrombosis and embolism; Z79.01 Long term (current) use of anticoagulants
CPT/HCPCS: 99283; 96372; J1100; A9270

== ENCOUNTER 2018-04-13 20:35 | Emergency (ER) | payer MEDICARE ==
[2018-04-13] MEDS ORDERED: KETOROLAC TROMETHAMINE INJ/PF 30 MG/1 ML SDV IM ONE (21:38)
--- NOTE | 2018-04-13 21:39 | RADIOLOGY REPORT (SQ) ---
EXAM DESCRIPTION: KNEE RIGHT 4 VIEWS COMPLETED DATE/TIME: 04/13/2018 9:15 pm REASON FOR STUDY: pain COMPARISON: None. NUMBER OF VIEWS: Four views right knee. LIMITATIONS: None. FINDINGS: Osteopenic. Intact knee arthroplasty. No effusion or fracture. OTHER: No other significant finding. IMPRESSION: Intact knee arthroplasty. TECHNICAL DOCUMENTATION: JOB ID: [id number] Reading location - IP/workstation name: [email or web address]
--- NOTE | 2018-04-13 21:43 | ER Document Report ---
HPI - HPI Pain Level: 5 Notes: Patient is a 57-year-old male with a history of right TKA who presents to the ED complaining of ongoing right knee pain over the last couple years, but slowly progressing. Patient states that he is going to be seeing his surgeon in [place] in 1.5 weeks. Patient states that he has been using over-the- counter meds with minimal relief and just continues to have pain. The pain does not radiate. He has not noticed any redness or swelling to the knee. No other concerns or complaints. Denies any headache, fever, URI, sore throat, chest pain, palpitations, syncope, cough, shortness of breath, wheeze, dyspnea, abdominal pain, nausea/vomiting/diarrhea, urinary retention, dysuria, hematuria , loss of control of bowel or bladder, numbness/tingling, muscle paralysis/ weakness, or rash. - ROS Systems Reviewed and Negative: Yes All other systems reviewed and negative - CONSTITUTIONAL Constitutional: DENIES: Fever, Chills - EENT EENT: DENIES: Sore Throat, Ear Pain, Eye problems - NEURO Neurology: DENIES: Headache, Weakness, Vision blurred, Dizzinesss / Vertigo - CARDIOVASCULAR Cardiovascular: DENIES: Chest pain - RESPIRATORY Respiratory: DENIES: Trouble Breathing, Coughing - GASTROINTESTINAL Gastrointestinal: DENIES: Abdominal Pain, Black / Bloody Stools - URINARY Urinary: DENIES: Dysuria, Urgency, Frequency - REPRODUCTIVE Reproductive: DENIES: :, Postmenopausal, Abnormal bleeding / discharge - MUSCULOSKELETAL Musculoskeletal: REPORTS: Extremity pain - BLE (Knees) R replacement 2013 Past Medical History - Social History Smoking Status: Current Every Day Smoker Chew tobacco use (# tins/day): No Frequency of alcohol use: None Drug Abuse: None Family History: Reviewed & Not Pertinent Patient has suicidal ideation: No Patient has homicidal ideation: No - Past Medical History Cardiac Medical History: Reports: Hx DVT, Hx Hypercholesterolemia, Hx Hypertension Neurological Medical History: Reports: Hx Cerebrovascular Accident - TIA Renal/ Medical History: Denies: Hx Peritoneal Dialysis GI Medical History: Reports: Hx Hepatitis - History of hepatitis C. He has had treatment. Musculoskeletal Medical History: Reports Hx Arthritis Infectious Medical History: Reports: Hx Hepatitis - History of hepatitis C. He has had treatment. Past Surgical History: Reports: Hx Abdominal Surgery - hernia, Hx Orthopedic Surgery - Has had cervical spine surgery, L Knee Replacement, Hx Vascular Surgery - removal of DVTs in legs, IVC filter placed - Immunizations Hx Diphtheria, Pertussis, Tetanus Vaccination: No Vertical Provider Document - CONSTITUTIONAL Agree With Documented VS: Yes Notes: PHYSICAL EXAMINATION: GENERAL: Well-appearing, well-nourished and in no acute distress. LUNGS: Breath sounds clear to auscultation bilaterally and equal. No wheezes rales or rhonchi. HEART: Regular rate and rhythm without murmurs, rubs, gallops. Musculoskeletal: Lt knee: No obvious swelling, ecchymosis, effusion, or deformity. + surgical scar noted. LROM to passive/active and flexion. + mild tenderness to the anterior knee. Strength 5+/5. N/V intact distal. No bony tenderness. Ligamentous grossly stable, limited exam with larger leg size. Could not adequately assess ligaments/cartilage. No calf tenderness. Extremities: No cyanosis, clubbing, or edema b/l. Peripheral pulses 2+. Capillary refill less than 3 seconds. Carole neg b/l. NEUROLOGICAL: Normal speech, limping gait. Normal sensory, motor exams PSYCH: Normal mood, normal affect. SKIN: Warm, Dry, normal turgor, no rashes or lesions noted. - INFECTION CONTROL TRAVEL OUTSIDE OF THE [place] IN LAST 30 DAYS: No Course - Re-evaluation Re-evalutation: 04/13/18 21:43 Patient is an afebrile, well-hydrated, 57-year-old male who presents to the ED with acute on chronic left knee pain. Vitals are acceptable without any significant tachycardia, tachypnea, or hypoxia. PE is otherwise unremarkable for any neurovascular compromise, obvious tendon/ligament rupture, obvious fracture/dislocation, septic joint. X-ray was unremarkable for any acute pathology. Knee immobilizer given. Toradol given IM today. Patient is nontoxic-appearing. Patient is able to ambulate and weight-bear although he is limping. No other labs or imaging warranted at this time based on H&P. Advised patient that I will only give him several tablets because he is going to be traveling to [place], but otherwise would not be giving him any medications due to chronic pain and policy. Advised pt he will not be receiving any more in the future from the ED for chronic pain. Conservative measures otherwise for symptoms. Recheck with your PCM in 3-5 days. Keep appointment with Ortho. Return to the ED with any worsening/concerning symptoms otherwise as reviewed in discharge. Patient is in agreement. - Vital Signs Vital signs: Temp Pulse Resp BP Pulse Ox 98.3 F 71 22 H 161/72 H 98 04/13/18 20:40 04/13/18 20:40 04/13/18 20:40 04/13/18 20:40 04/13/18 20:40 Discharge - Discharge Clinical Impression: Right knee pain Qualifiers: Chronicity: chronic Qualified Code(s): M25.561 - Pain in right knee; G89.29 - Other chronic pain; G89.29 - Other chronic pain Condition: Stable Disposition: HOME, SELF-CARE Instructions: Oral Narcotic Medication ([facility]) Additional Instructions: Rest, Ice, Compression, Elevation Use splint as directed Tylenol/ibuprofen as needed Light stretches daily Strength exercises as able Moist heat and massage may help F/u with your PCP in 3-5 days for a recheck Keep your scheduled appointment with orthopedics Return to the ED with any worsening symptoms and/or development of fever, headache, chest pain, palpitations, syncope, shortness of breath, trouble breathing, abdominal pain, n/v/d, muscle weakness/paralysis, numbness/tingling, swelling, redness, or other worsening symptoms that are concerning to you. Prescriptions: Oxycodone HCl/Acetaminophen [Oxycodone-Acetaminophen 5-325] 1 each PO BID #10 tablet Forms: Elevated Blood Pressure Referrals: STEVEN VILLALOBOS MD [Primary Care Provider] - Follow up in 3-5 days [facility] [Provider Group] - Follow up as needed
[2018-04-13 22:06] VITALS: BP 159/80
== END 2018-04-13 22:06 | disposition home or self-care (01) ==
LOC: ER 20:35
DX: M25.561 Pain in right knee (principal); G89.29 Other chronic pain; F17.200 Nicotine dependence, unspecified, uncomplicated; E78.00 Pure hypercholesterolemia, unspecified; I10 Essential (primary) hypertension; Z96.652 Presence of left artificial knee joint; Z86.718 Personal history of other venous thrombosis and embolism; Z86.74 Personal history of sudden cardiac arrest; Z86.19 Personal history of other infectious and parasitic diseases
CPT/HCPCS: 99283; 73564; J1885

== ENCOUNTER 2018-04-17 01:03 | Emergency (ER) | payer MEDICARE ==
[2018-04-17 01:15] VITALS: BP 158/87
[2018-04-17] MEDS ORDERED: KETOROLAC TROMETHAMINE 60 MG/2 ML SDV IM ONE (02:36)
[2018-04-17] MEDS ORDERED: LIDOCAINE 5% (700 MG) TRANSDERMAL ADH..PATCH TP ONE (02:37)
[2018-04-17] MEDS ORDERED: MORPHINE SULFATE IR 15 MG TABLET PO ONE (02:37)
--- NOTE | 2018-04-17 02:38 | ER Document Report ---
ED General - General Chief Complaint: Low Back Pain Stated Complaint: BACK PAIN Time Seen by Provider: 04/17/18 02:36 Notes: Patient is a 57-year-old male with a past medical history of chronic back pain, formally in pain management who presents with ongoing low back pain. Nothing is new or different about his back pain that prompted a visit to the emergency department today other than he does not have any pain medications available to him at home. The patient states that he is unable to sleep secondary to the pain in his back which she describes as a throbbing, aching, constant pain. Nothing improves or worsens his pain. He states he was discharged from his pain management clinic for declining he states that since that time he has had significant worsening of his pain Dilaudid in place of Percocet. This had several visits to the emergency department for pain control. He denies any difficulty walking, bowel or bladder incontinence or urinary retention. TRAVEL OUTSIDE OF THE [place] IN LAST 30 DAYS: No - Related Data Allergies/Adverse Reactions: erythromycin base Allergy (Verified 07/24/17 21:49) hydromorphone [From Dilaudid] Adverse Reaction (Verified 07/24/17 21:49) palpations Past Medical History - General Information source: Patient - Social History Smoking Status: Current Every Day Smoker Chew tobacco use (# tins/day): No Frequency of alcohol use: None Drug Abuse: None Lives with: Spouse/Significant other Family History: Reviewed & Not Pertinent Patient has suicidal ideation: No Patient has homicidal ideation: No - Past Medical History Cardiac Medical History: Reports: Hx DVT, Hx Hypercholesterolemia, Hx Hypertension Neurological Medical History: Reports: Hx Cerebrovascular Accident - TIA Renal/ Medical History: Denies: Hx Peritoneal Dialysis GI Medical History: Reports: Hx Hepatitis - History of hepatitis C. He has had treatment. Musculoskeletal Medical History: Reports Hx Arthritis Infectious Medical History: Reports: Hx Hepatitis - History of hepatitis C. He has had treatment. Past Surgical History: Reports: Hx Abdominal Surgery - hernia, Hx Orthopedic Surgery - Has had cervical spine surgery, L Knee Replacement, Hx Vascular Surgery - removal of DVTs in legs, IVC filter placed - Immunizations Hx Diphtheria, Pertussis, Tetanus Vaccination: No Review of Systems - Review of Systems Notes: Constitutional: Negative for fever. HENT: Negative for sore throat. Eyes: Negative for visual changes. Cardiovascular: Negative for chest pain. Respiratory: Negative for shortness of breath. Gastrointestinal: Negative for abdominal pain, vomiting or diarrhea. Genitourinary: Negative for dysuria. Musculoskeletal: Positive for back pain. Skin: Negative for rash. Neurological: Negative for headaches, weakness or numbness. 10 point ROS negative except as marked above and in HPI. Physical Exam - Vital signs Vitals: Temp Pulse Resp BP Pulse Ox 97.8 F 65 20 158/87 H 99 04/17/18 01:13 04/17/18 01:13 04/17/18 01:13 04/17/18 01:13 04/17/18 01:13 Interpretation: Hypertensive Notes: PHYSICAL EXAMINATION: GENERAL: Well-appearing, well-nourished and in no acute distress. HEAD: Atraumatic, normocephalic. EYES: Pupils equal round and reactive to light, extraocular movements intact, sclera anicteric, conjunctiva are normal. ENT: nares patent, oropharynx clear without exudates. Moist mucous membranes. NECK: Normal range of motion, supple without lymphadenopathy LUNGS: Breath sounds clear to auscultation bilaterally and equal. No wheezes rales or rhonchi. HEART: Regular rate and rhythm without murmurs ABDOMEN: Soft, nontender, normoactive bowel sounds. No guarding, no rebound. No masses appreciated. EXTREMITIES: Normal range of motion, no pitting or edema. No cyanosis. Back: No midline spinal tenderness, step-offs or deformities NEUROLOGICAL: 5 out of 5 strength both distally and proximally bilateral lower extremities. 2+ patellar reflexes bilaterally. No clonus. Sensation grossly intact in the bilateral lower extremities. Patient is able to ambulate without difficulty. PSYCH: Normal mood, normal affect. SKIN: Warm, Dry, normal turgor, no rashes or lesions noted. Course - Re-evaluation Re-evalutation: 04/17/18 02:37 Presentation of a well appearing patient complaining of acute on chronic back pain. No rapid progression of symptoms, systemic symptoms including fevers, chills, weight loss, history of recent bacterial infection, bilateral symptoms, numbness, weakness, difficulty walking, urinary retention or bowel incontinence , personal history of cancer, immunosuppression, diabetes, known AAA, or history of IV drug use. Exam is without point tenderness over vertebral bodies , pulsatile abdominal mass, and patient has symmetric and intact lower extremity strength, sensation, and reflexes without clonus. 2+ symmetric medial malleolar and dorsalis pedis pulses Based on history and physical, I have a very low suspicion of a concerning etiology of pain including epidural compression syndrome, spinal infection, transverse myelitis, malignancy, abdominal aortic aneurysm, renal colic, acute lower extremity claudication, neurogenic claudication, ankylosing spondylitis, or other intra-abdominal process. Due to absence of concerning risk factors in history and physical as well as absence of rapidly progressive, severe, or bilateral symptoms, will defer imaging at this point. At this time will discharge with return precautions and follow-up recommendations. Verbal discharge instructions given a the bedside and opportunity for questions given. Medication warnings reviewed. Patient is in agreement with this plan and has verbalized understanding of return precautions and the need for primary care follow-up in the next 24-72 hours. - Vital Signs Vital signs: Temp Pulse Resp BP Pulse Ox 97.8 F 65 20 158/87 H 99 04/17/18 01:13 04/17/18 01:13 04/17/18 01:13 04/17/18 01:13 04/17/18 01:13 Discharge - Discharge Clinical Impression: Chronic low back pain with bilateral sciatica Qualifiers: Back pain laterality: bilateral Qualified Code(s): M54.42 - Lumbago with sciatica, left side Condition: Good Disposition: HOME, SELF-CARE Additional Instructions: You have been seen in the Emergency Department (ED) today for back pain. Your workup and exam have not shown any acute abnormalities and you are likely suffering from muscle strain or possible problems with your discs, but there is no treatment that will fix your symptoms at this time. You should also purchase a local lidocaine cream such as "aspercreme with lidocaine" and use per bottle instructions to the affected area. Apply heat to the area as often as you are able. Continue to keep active and avoid prolonged periods of bed rest. Please follow up with your doctor as soon as possible regarding today's ED visit and your back pain. Return to the ED for worsening back pain, fever, weakness or numbness of either leg, or if you develop either (1) an inability to urinate or have bowel movements, or (2) loss of your ability to control your bathroom functions (if you start having "accidents"), or if you develop other new symptoms that concern you.concern you. Prescriptions: Naproxen 500 mg PO BID #60 tablet
== END 2018-04-17 03:06 | disposition home or self-care (01) ==
LOC: ER 01:03
DX: M54.42 Lumbago with sciatica, left side (principal); F17.200 Nicotine dependence, unspecified, uncomplicated; E78.00 Pure hypercholesterolemia, unspecified; I10 Essential (primary) hypertension; Z88.6 Allergy status to analgesic agent; Z88.3 Allergy status to other anti-infective agents; Z86.718 Personal history of other venous thrombosis and embolism; Z86.73 Personal history of transient ischemic attack (TIA), and cerebral infarction without residual deficits; Z86.19 Personal history of other infectious and parasitic diseases
CPT/HCPCS: 99283; 96372; J1885; A9270

== ENCOUNTER 2018-04-27 20:26 | Emergency (ER) | payer MEDICARE ==
[2018-04-27 21:14] VITALS: BP 155/90
[2018-04-27] MEDS ORDERED: DEXAMETHASONE SOD PHOS INJ 10 MG/1 ML VIAL IM ONE (22:44)
--- NOTE | 2018-04-27 22:44 | ER Document Report ---
ED General - General Chief Complaint: Back Pain Stated Complaint: BACK PAIN Time Seen by Provider: 04/27/18 22:41 TRAVEL OUTSIDE OF THE [place] IN LAST 30 DAYS: No - HPI Notes: 57-year-old male presents with back pain. Patient has a history of chronic back pain for years including cervical degenerative disc disease as well as lumbar disc disease. States he just cannot "take it anymore. Denies any new discrete injury. Complains of bilateral lower lumbar pain that radiates around his hips down to his knees. Has a history of remote DVT and is currently taking Coumadin. No real new symptoms. Denies any new numbness or tingling but occasionally has some numbness around his feet. No other modifying factors , no other associated symptoms, no other provocative or palliative factors. Gradual in onset. Nonradiating except as described. - Related Data Allergies/Adverse Reactions: erythromycin base Allergy (Verified 07/24/17 21:49) hydromorphone [From Dilaudid] Adverse Reaction (Verified 07/24/17 21:49) palpations Past Medical History - Social History Smoking Status: Smoker,Current Status Unk Family History: Reviewed & Not Pertinent - Past Medical History Cardiac Medical History: Reports: Hx DVT, Hx Hypercholesterolemia, Hx Hypertension Neurological Medical History: Reports: Hx Cerebrovascular Accident - TIA Renal/ Medical History: Denies: Hx Peritoneal Dialysis GI Medical History: Reports: Hx Hepatitis - History of hepatitis C. He has had treatment. Musculoskeletal Medical History: Reports Hx Arthritis Infectious Medical History: Reports: Hx Hepatitis - History of hepatitis C. He has had treatment. Past Surgical History: Reports: Hx Abdominal Surgery - hernia, Hx Orthopedic Surgery - Has had cervical spine surgery, L Knee Replacement, Hx Vascular Surgery - removal of DVTs in legs, IVC filter placed - Immunizations Hx Diphtheria, Pertussis, Tetanus Vaccination: No Review of Systems - Review of Systems Notes: Review of systems as in history of present illness, otherwise no significant headache, chest pain, abdominal pain. Physical Exam - Vital signs Vitals: Temp Pulse Resp BP Pulse Ox 98.3 F 66 16 155/90 H 96 04/27/18 21:13 04/27/18 21:13 04/27/18 21:13 04/27/18 21:13 04/27/18 21:13 - Notes Notes: General: Well devloped, no acute distress. HEENT: Normocephalic, atraumatic. Pupils equal round reactive to light. Mucosa moist. No JVD. Chest: No trauma, normal excursion. Respiratory: Good air exchange, normal excursion. Cardiac: Regular rhythm Abdomen: Soft, benign. Nondistended. Back: No asymmetry or gross abnormality. Lateral paralumbar tenderness. Motor: Grossly normal power and tone. Neurologic: Alert, nonfocal. DTRs 2+ and symmetric. Station intact and symmetric. Vascular: Well perfused Skin: No petechiae or purpura Course - Re-evaluation Re-evalutation: 04/27/18 23:09 Well-appearing male with chronic low back pain likely lumbar disc disease. I discussed with him my limited options, he is on Coumadin and NSAIDs are not an option. Would not use Flexeril and he is apparently not able to tolerate this type of medicines. I think a single injection of Decadron may help with inflammation. Otherwise uncomfortable prescribing opiates. He is asked to follow back up with his established pain clinic physician primary care doctor. - Vital Signs Vital signs: Temp Pulse Resp BP Pulse Ox 98.3 F 66 16 155/90 H 96 04/27/18 21:13 04/27/18 21:13 04/27/18 21:13 04/27/18 21:13 04/27/18 21:13 Discharge - Discharge Clinical Impression: Back pain Qualifiers: Back pain location: low back pain Chronicity: chronic Back pain laterality: bilateral Sciatica presence: with sciatica Sciatica laterality: bilateral sciatica Qualified Code(s): M54.42 - Lumbago with sciatica, left side Condition: Good Disposition: HOME, SELF-CARE Referrals: [facility],NO [Primary Care Provider] - Follow up as needed
== END 2018-04-27 23:17 | disposition home or self-care (01) ==
LOC: ER 20:26
DX: M54.42 Lumbago with sciatica, left side (principal); E78.00 Pure hypercholesterolemia, unspecified; F17.200 Nicotine dependence, unspecified, uncomplicated; I10 Essential (primary) hypertension; Z86.19 Personal history of other infectious and parasitic diseases; Z88.3 Allergy status to other anti-infective agents; Z96.652 Presence of left artificial knee joint; Z86.73 Personal history of transient ischemic attack (TIA), and cerebral infarction without residual deficits; Z79.02 Long term (current) use of antithrombotics/antiplatelets
CPT/HCPCS: 99283; 96372; J1100

== ENCOUNTER 2018-04-28 03:17 | Emergency (ER) | payer MEDICARE ==
[2018-04-28] MEDS ORDERED: OXYCODONE-ACETAMINOPHEN 5-325 MG TABLET PO ONE (04:06)
[2018-04-28] MEDS ORDERED: HYDROCODONE/ACETAMINOPHEN 5-325 MG (6 TAB/ER DISP) PO PRN (04:06)
--- NOTE | 2018-04-28 04:11 | ER Document Report ---
HPI - HPI Patient complains to provider of: Lower back pain Pain Level: 5 Context: Patient is a 57-year-old male comes emergency department for chief complaint of lower back pain. Back pain is chronic, he has history of cervical fusion and lumbar degenerative disc disease, used to be on pain management in [place] for this, states he is moving back to [place] on May 13 and has already established primary care and pain management. States he was here yesterday and had a shot of Decadron but he cannot sleep because of the pain and it does not seem to be helping. He denies new injury, pain is bilateral and radiates around to hips and occasionally to legs. He has a remote history of DVT and is currently on Coumadin. He denies any new symptoms, denies any bowel or bladder changes, new numbness, fever, history of IV drug abuse. - REPRODUCTIVE Reproductive: DENIES: : Past Medical History - General Information source: Patient - Social History Smoking Status: Current Every Day Smoker Chew tobacco use (# tins/day): No Frequency of alcohol use: None Drug Abuse: None Lives with: Family Family History: Reviewed & Not Pertinent Patient has suicidal ideation: No Patient has homicidal ideation: No - Past Medical History Cardiac Medical History: Reports: Hx DVT, Hx Hypercholesterolemia, Hx Hypertension Neurological Medical History: Reports: Hx Cerebrovascular Accident - TIA Renal/ Medical History: Denies: Hx Peritoneal Dialysis GI Medical History: Reports: Hx Hepatitis - History of hepatitis C. He has had treatment. Musculoskeletal Medical History: Reports Hx Arthritis Infectious Medical History: Reports: Hx Hepatitis - History of hepatitis C. He has had treatment. Past Surgical History: Reports: Hx Abdominal Surgery - hernia, Hx Orthopedic Surgery - Has had cervical spine surgery, L Knee Replacement, Hx Vascular Surgery - removal of DVTs in legs, IVC filter placed - Immunizations Hx Diphtheria, Pertussis, Tetanus Vaccination: No Vertical Provider Document - CONSTITUTIONAL General Appearance: WD/WN - Moderately overweight. negative: No Apparent Distress - Patient walks with some discomfort but does not appear to be in severe distress - INFECTION CONTROL TRAVEL OUTSIDE OF THE [place] IN LAST 30 DAYS: No - HEENT HEENT: Atraumatic, Normocephalic - NECK Neck: Normal Inspection - RESPIRATORY Respiratory: Breath Sounds Normal, No Respiratory Distress - CARDIOVASCULAR Cardiovascular: Regular Rate, Regular Rhythm - GI/ABDOMEN Gastrointestinal: Abdomen Soft, Abdomen Non-Tender - BACK Back: negative: Normal Inspection - Generalized lumbar tenderness, much worse over the paraspinal muscles and on the right side. No specific midline tenderness of the back. No signs of trauma. No saddle anesthesia. Positive straight leg raise on the right, normal distal neurovascular exam, normal range of motion, unremarkable examination otherwise. - MUSCULOSKELETAL/EXTREMETIES Musculoskeletal/Extremeties: GEOVANNI, FROM, Non-Tender - NEURO Level of Consciousness: Awake, Alert, Appropriate - DERM Integumentary: Warm, Dry, No Rash Course - Re-evaluation Re-evalutation: Patient is very forthcoming about his recent visits, previous pain management, gives details about his procedures, offers no evidence of concerning new symptoms. He states that he would like a referral to local pain management but he is supposed to be leaving within 2 weeks to go back to [place] where he is already established. He states he is simply here because he cannot sleep because of his lower back pain. He states he would like to try a different muscle relaxer than Flexeril, he is hoping for some short-term pain management before being seen by official pain management. Patient does have evidence of sciatica especially on the right side on examination. He walks with pain but he is able to do so. He had recent imaging. He is unable to take anti- inflammatories because of his medications and medical history. He is not allergic to Dilaudid but he states that he never wanted to be given Dilaudid with pain control in the past. Patient given small supply of pain medicine, muscle relaxers, referral to pain management, discussed that he will need to be seen by pain management for further treatment of his chronic pain, patient states understanding and agreement. - Vital Signs Vital signs: Temp Pulse Resp BP Pulse Ox 98.1 F 82 18 170/96 H 97 04/28/18 03:24 04/28/18 03:24 04/28/18 03:24 04/28/18 03:24 04/28/18 03:24 Discharge - Discharge Clinical Impression: Chronic back pain Qualifiers: Back pain location: low back pain Back pain laterality: bilateral Sciatica presence: with sciatica Sciatica laterality: sciatica of right side Qualified Code(s): M54.41 - Lumbago with sciatica, right side Condition: Stable Disposition: HOME, SELF-CARE Additional Instructions: You have chronic back pain. You need to get back in the pain management to have this managed as this is not an emergent issue. You have been provided with a small amount of medications, please follow-up closely with pain management. Return if you worsen including fever, numbness, loss of bowel or bladder control, or any other concerning or worsening symptoms. Prescriptions: Morphine Sulfate [Morphine Ir 15 Mg Tablet] 15 mg PO Q4HP PRN #12 tablet PRN Reason: Metaxalone [Skelaxin 800 mg Tablet] 800 mg PO ASDIR PRN #20 tablet PRN Reason: Referrals: [facility] [Provider Group] - Follow up as needed
[2018-04-28 04:52] VITALS: BP 148/83
== END 2018-04-28 04:50 | disposition home or self-care (01) ==
LOC: ER 03:17
DX: G89.29 Other chronic pain (principal); M51.16 Intervertebral disc disorders with radiculopathy, lumbar region; Z98.1 Arthrodesis status; E66.3 Overweight; Z68.35 Body mass index [BMI] 35.0-35.9, adult; I10 Essential (primary) hypertension; F17.200 Nicotine dependence, unspecified, uncomplicated; Z86.718 Personal history of other venous thrombosis and embolism; Z79.01 Long term (current) use of anticoagulants
CPT/HCPCS: 99283; A9270 ×2

== ENCOUNTER 2018-05-01 15:59 | Emergency (ER) | payer MEDICARE ==
[2018-05-01 16:06] VITALS: BP 152/87
--- NOTE | 2018-05-01 16:13 | ER Document Report ---
HPI - HPI Patient complains to provider of: Chronic back pain Onset: Other - Years Onset/Duration: Persistent Pain Level: 5 Context: 57-year-old male with chronic low back pain and chronic upper pain is here for pain relief. He used to go to a pain management clinic in which he was discharged from because he did not want to switch off of oxycodone 10 mg to hydromorphone that they suggested. He has come to the emergency room 4 other times recently for pain management of chronic back pain. He was given short courses of pain medication twice and 2 times no pain medication. He is planning to move to [place] May 13 to go back to his doctors in [place]. He cannot take Tylenol because of liver disease. He cannot take NSAIDs. There are no new symptoms. No saddle anesthesia. No radiculopathy. No fever or chills. I told him I could give him one injection of pain medication but no prescription. Associated Symptoms: None Exacerbated by: Movement Relieved by: Denies Similar symptoms previously: No Recently seen / treated by doctor: No - ROS ROS below otherwise negative: Yes Systems Reviewed and Negative: Yes All other systems reviewed and negative - REPRODUCTIVE Reproductive: DENIES: : Past Medical History - General Information source: Patient - Social History Smoking Status: Unknown if Ever Smoked Frequency of alcohol use: None Drug Abuse: None Lives with: Spouse/Significant other Family History: Reviewed & Not Pertinent - Past Medical History Cardiac Medical History: Reports: Hx DVT, Hx Hypercholesterolemia, Hx Hypertension Neurological Medical History: Reports: Hx Cerebrovascular Accident - TIA Renal/ Medical History: Denies: Hx Peritoneal Dialysis GI Medical History: Reports: Hx Hepatitis - History of hepatitis C. He has had treatment. Musculoskeletal Medical History: Reports Hx Arthritis Infectious Medical History: Reports: Hx Hepatitis - History of hepatitis C. He has had treatment. Past Surgical History: Reports: Hx Abdominal Surgery - hernia, Hx Orthopedic Surgery - Has had cervical spine surgery, L Knee Replacement, Hx Vascular Surgery - removal of DVTs in legs, IVC filter placed - Immunizations Hx Diphtheria, Pertussis, Tetanus Vaccination: No Vertical Provider Document - CONSTITUTIONAL Agree With Documented VS: Yes Exam Limitations: No Limitations Notes: Patient is able to walk to the wheelchair. He is obese. - INFECTION CONTROL TRAVEL OUTSIDE OF THE U[place] IN LAST 30 DAYS: No - NECK Neck: Supple - RESPIRATORY Respiratory: Breath Sounds Normal, No Respiratory Distress - CARDIOVASCULAR Cardiovascular: Regular Rate, Regular Rhythm - GI/ABDOMEN Gastrointestinal: Abdomen Soft, Abdomen Non-Tender - MUSCULOSKELETAL/EXTREMETIES Musculoskeletal/Extremeties: MAEW, FROM, Tender - Lumbar paraspinal muscles - NEURO Level of Consciousness: Alert Motor/Sensory: No Motor Deficit, No Sensory Deficit Deep Tendon Reflexes: 2+ - Bilateral ankle and bilateral patellar - DERM Integumentary: No Rash Course - Vital Signs Vital signs: Temp Pulse Resp BP Pulse Ox 98.4 F 76 22 H 152/87 H 97 05/01/18 16:04 05/01/18 16:04 05/01/18 16:04 05/01/18 16:04 05/01/18 16:04 Discharge - Discharge Clinical Impression: Chronic back pain Qualifiers: Back pain location: low back pain Back pain laterality: midline Sciatica presence: without sciatica Qualified Code(s): M54.5 - Low back pain Condition: Good Disposition: HOME, SELF-CARE Instructions: Low Back Pain ([facility]), Pain Medication Injection ([facility]) Additional Instructions: See family practice doctor for your pain medication until you move to [place] Return to the emergency room if there is any new or changing symptoms, numbness or tingling, fever or chills Referrals: LOCALMD,NO [Primary Care Provider] - Follow up as needed
[2018-05-01] MEDS ORDERED: MORPHINE SULFATE 10 MG/ML INJ IM ONE (16:33)
== END 2018-05-01 16:43 | disposition home or self-care (01) ==
LOC: ER 15:59
DX: G89.29 Other chronic pain (principal); M54.5 Low back pain; K76.9 Liver disease, unspecified; I10 Essential (primary) hypertension; E66.9 Obesity, unspecified; Z68.36 Body mass index [BMI] 36.0-36.9, adult
CPT/HCPCS: 99283; 96372; J2270

== ENCOUNTER 2018-11-07 23:52 | Emergency (ER) | payer MEDICARE ==
[2018-11-08 00:15] VITALS: BP 153/76
== END 2018-11-08 00:52 | disposition left against medical advice (07) ==
LOC: ER 23:52
DX: Z53.21 Procedure and treatment not carried out due to patient leaving prior to being seen by health care provider (principal)

== ENCOUNTER 2018-11-08 03:15 | Emergency (ER) | payer MEDICARE ==
[2018-11-08] MEDS ORDERED: OXYCODONE HCL IR 5 MG TABLET PO ONE ×2 (04:06→06:43)
[2018-11-08] MEDS ORDERED: ONDANSETRON HCL INJ/PF 4 MG/2 ML SDV IV ONE (04:06)
--- NOTE | 2018-11-08 04:08 | ER Document Report ---
ED General - General Chief Complaint: Possible Kidney Stone Stated Complaint: LOWER BACK PAIN Time Seen by Provider: 11/08/18 03:52 Primary Care Provider: JAIRON TAYLOR MD [ACTIVE STAFF] - Follow up tomorrow HAYLEE RHODES MD [ACTIVE STAFF] - Follow up tomorrow Notes: Patient is a 58-year-old male that comes to the emergency department for chief complaint of right flank pain and right-sided abdominal pain. He states that he has had persistent pain for a while but tonight it became much worse and he became nauseated. He denies vomiting, fever, hematuria, dysuria, injury. He states that he recently was diagnosed with cirrhosis of the liver, he states that he did get treated for hepatitis C in the past and he thought he had been cleared of this. He has had a cholecystectomy. He used to be on warfarin but he was taken off because of his cirrhosis of the liver, he does have a history of DVT. He also has a history of kidney stones, states that he was told there was a 13 mm right-sided kidney stone. He also has a history of chronic neck and lower back pain with spinal fusion. He had moved up to [place] but he just moved back here because it is too expensive in [place] he states. He takes oxycodone as needed for pain. TRAVEL OUTSIDE OF THE U.S. IN LAST 30 DAYS: No - Related Data Allergies/Adverse Reactions: erythromycin base Allergy (Verified 05/01/18 16:01) hydromorphone [From Dilaudid] Adverse Reaction (Verified 05/01/18 16:01) palpations Past Medical History - General Information source: Patient - Social History Smoking Status: Former Smoker Chew tobacco use (# tins/day): No Frequency of alcohol use: None Drug Abuse: None Lives with: Alone Family History: Reviewed & Not Pertinent Patient has suicidal ideation: No Patient has homicidal ideation: No - Past Medical History Cardiac Medical History: Reports: Hx DVT, Hx Hypercholesterolemia, Hx Hypertension Neurological Medical History: Reports: Hx Cerebrovascular Accident - TIA Renal/ Medical History: Denies: Hx Peritoneal Dialysis GI Medical History: Reports: Hx Hepatitis - History of hepatitis C. He has had treatment. Musculoskeletal Medical History: Reports Hx Arthritis Infectious Medical History: Reports: Hx Hepatitis - History of hepatitis C. He has had treatment. Past Surgical History: Reports: Hx Abdominal Surgery - hernia, Hx Orthopedic Surgery - Has had cervical spine surgery, L Knee Replacement, Hx Vascular Surgery - removal of DVTs in legs, IVC filter placed - Immunizations Hx Diphtheria, Pertussis, Tetanus Vaccination: No Review of Systems - Review of Systems Constitutional: No symptoms reported EENT: No symptoms reported Cardiovascular: No symptoms reported Respiratory: No symptoms reported Gastrointestinal: See HPI Genitourinary: See HPI Male Genitourinary: No symptoms reported Musculoskeletal: No symptoms reported Skin: No symptoms reported Hematologic/Lymphatic: No symptoms reported Neurological/Psychological: No symptoms reported Physical Exam - Vital signs Vitals: Temp Pulse Resp BP Pulse Ox 98.0 F 81 16 153/76 H 99 11/08/18 03:26 11/08/18 03:26 11/08/18 03:26 11/08/18 03:11/08/18 03:26 - Notes Notes: GENERAL: Alert, interacts well. No acute distress. HEAD: Normocephalic, atraumatic. EYES: Pupils equal, round, and reactive to light. Extraocular movements intact. ENT: Oral mucosa moist, tongue midline. Oropharynx unremarkable. Airway patent. Nares patent, no nasal septal hematoma, TM's intact. NECK: Full range of motion. Supple. Trachea midline. LUNGS: Clear to auscultation bilaterally, no wheezes, rales, or rhonchi. No respiratory distress. HEART: Regular rate and rhythm. No murmur ABDOMEN: Tender in the general upper abdomen, mildly, no guarding. No overt distention noted. No rigidity. Bowel sounds present. GENITOURINARY: Deferred EXTREMITIES: Moves all 4 extremities spontaneously. No edema, normal radial and dorsalis pedis pulses bilaterally. No cyanosis. BACK: no cervical, thoracic, lumbar midline tenderness. No saddle anesthesia, normal distal neurovascular exam. Some generalized tenderness over the mid to lower back, nonspecific, no overt CVA tenderness. NEUROLOGICAL: Alert and oriented x3. Normal speech. [cranial nerves II through XII grossly intact]. PSYCH: Normal affect, normal mood. SKIN: Warm, dry, normal turgor. No rashes or lesions noted. Course - Re-evaluation Re-evalutation: 11/08/18 05:56 CAT scan showing cirrhosis and developing ascites. Also shows questionable area of inflammation near the duodenum and pancreas. Lipase is normal. White blood cell count is normal. Chemistry is unremarkable. Platelets are low but this is expected. Bilirubin is also mildly elevated but this is also expected. There is some hematuria but the 7 mm kidney stone is not passing and there is no obstructive change at this time. Vital signs are unremarkable. Patient's pain is controlled easily with p.o. pain medication and he is taking p.o. without any difficulty. I discussed with Dr. Roberts. Recommendation is to have a lactic acid drawn, if this is normal then patient can perform very close primary care and gastroneurology follow-up with strict return precautions. He will be provided with short-term pain medication as well. I discussed this in detail with patient. He states he is going to [facility] to get things going and that he will also be following up closely with his referrals. He states he will return if he worsens in any way. - Vital Signs Vital signs: Temp Pulse Resp BP Pulse Ox 98.0 F 81 16 153/76 H 99 11/08/18 03:26 11/08/18 03:26 11/08/18 03:26 11/08/18 03:26 11/08/18 03:26 - Laboratory Result Diagrams: 11/08/18 04:20 11/08/18 04:20 Laboratory results interpreted by me: 11/08/18 11/08/18 11/08/18 04:20 04:20 04:20 RDW 15.8 H Plt Count 39 L Chloride 110 H Glucose 132 H Total Bilirubin 1.5 H Direct Bilirubin 0.5 H Alkaline Phosphatase 129 H Urine Blood LARGE H Urine Urobilinogen 4.0 H Discharge - Discharge Clinical Impression: Flank pain Abdominal pain Qualifiers: Abdominal location: upper abdomen, unspecified Qualified Code(s): R10.10 - Upper abdominal pain, unspecified Condition: Stable Disposition: HOME, SELF-CARE Additional Instructions: Your scan shows a 7 mm stone in the right kidney but you are not passing the stone at this time. Your scan shows a questionable area of possible inflammation near the pancreas and small bowel but your laboratory workup does not show any concerning findings in regards to this at this time. This could be normal. You have been provided with short-term pain medication, primary care and gastroenterology referral, you need to follow-up very closely with these. You need to return immediately if you worsen in any way including fever, vomiting, increased pain, or any other concerning symptoms. Prescriptions: Oxycodone HCl [Oxycodone HCl 10 MG Tablet] 1 tab PO Q6H PRN 7 Days #28 tablet PRN Reason: PAIN Referrals: HAYLEE RHODES MD [ACTIVE STAFF] - Follow up tomorrow JAIRON TAYLOR MD [ACTIVE STAFF] - Follow up tomorrow
[2018-11-08 04:32] LABS: ABSOLUTE EOSINOPHILS # (AUTO) 0.1 10^3/uL (0.0-0.6); ABSOLUTE LYMPHOCYTES (AUTO) 1.2 10^3/uL (0.5-4.7); ABSOLUTE MONOCYTES (AUTO) 0.7 10^3/uL (0.1-1.4); ABSOLUTE NEUT (AUTO) 3.5 10^3/uL (1.7-8.2); BASOPHILS % (AUTO) 0.3 % (0-2); EOSINOPHILS % (AUTO) 1.1 % (0-6); HEMATOCRIT 44.2 % (37.9-51.0); HEMOGLOBIN 15.3 g/dL (13.5-17.0); LYMPHOCYTES % (AUTO) 22.1 % (13-45); MEAN CORPUSCULAR HGB CONC 34.5 g/dL (32.0-36.0); MEAN CORPUSCULAR VOLUME 96 fl (80-97); MONOCYTES % (AUTO) 12.6 % (3-13); RED BLOOD COUNT 4.63 10^6/uL (4.35-5.55); RED CELL DISTRIBUTION WIDTH 15.8 % (11.5-14.0); SEGMENTED NEUTROPHILS % (AUTO) 63.9 % (42-78); TOTAL CELLS COUNTED % (AUTO) 100 %; WHITE BLOOD COUNT 5.5 10^3/uL (4.0-10.5)
[2018-11-08 04:48] LABS: ALANINE AMINOTRANSFERASE 45 U/L (21-72); ALBUMIN 3.6 g/dL (3.5-5.0); ALKALINE PHOSPHATASE 129 U/L (38-126); ANION GAP 7 (5-19); ASPARTATE AMINO TRANSFERASE 48 U/L (17-59); BILIRUBIN,DIRECT 0.5 mg/dL (0.0-0.4); BILIRUBIN,TOTAL 1.5 mg/dL (0.2-1.3); BLOOD UREA NITROGEN 7 mg/dL (7-20); CALCIUM 9.1 mg/dL (8.4-10.2); CARBON DIOXIDE 27 mmol/L (22-30); CHLORIDE 110 mmol/L (98-107); GLUCOSE 132 mg/dL (75-110); POTASSIUM 3.6 mmol/L (3.6-5.0); SODIUM 144.3 mmol/L (137-145); TOTAL PROTEIN 6.4 g/dL (6.3-8.2)
[2018-11-08 05:00] LABS: PLATELET COUNT 39 10^3/uL (150-450)
[2018-11-08 05:08] LABS: APPEARANCE,URINE SLIGHTLY-CLOUDY; BILIRUBIN,URINE NEGATIVE (NEGATIVE); COLOR,URINE DARK YELLOW; GLUCOSE, URINE NEGATIVE (NEGATIVE); KETONES,URINE NEGATIVE (NEGATIVE); LEUKOCYTE ESTERASE,URINE NEGATIVE (NEGATIVE); NITRITE,URINE NEGATIVE (NEGATIVE); PROTEIN,URINE NEGATIVE (NEGATIVE); URINE SPECIFIC GRAVITY 1.027
--- NOTE | 2018-11-08 05:40 | RADIOLOGY REPORT (SQ) ---
EXAM DESCRIPTION: CT ABDOMEN WITHOUT IV CONTRAST COMPLETED DATE/TME: 11/08/2018 05:03 CLINICAL HISTORY: 58 years, Male, right flank and abdominal pain, hx large stone Comparison: None TECHNIQUE: Contiguous axial CT images of the abdomen and pelvis were obtained. Sagittal and coronal reformats were reviewed. This exam was performed according to our departmental dose-optimization program, which includes automated exposure control, adjustment of the mA and/or kV according to patient size and/or use of iterative reconstruction technique. FINDINGS: Lung bases: Clear. Liver: Micronodular contour of the liver. No focal abnormalities. Diffuse heterogeneous appearance. Gallbladder:Cholecystectomy clips seen in gallbladder fossa. Spleen: Spleen is mildly enlarged. Varices are present in the splenic hilum. Splenorenal shunt is noted. Pancreas: Mild inflammatory fat stranding near the head of the pancreas. Adrenal glands:Within normal limits. Kidneys/ureters: 7 mm stone in the right kidney. No hydronephrosis. Left kidney is normal in appearance. Stomach/small bowel/colon: Stomach is unremarkable. There is circumferential wall thickening involving the second and third portions of the duodenum. Mild amount of retained stool seen throughout the colon. Appendix: Appendix not seen with certainty. However, no inflammatory changes or fluid seen in the pericecal region and right lower quadrant. Peritoneum: Small amount of free fluid in the upper abdomen just into the C-loop of the duodenum and in the root of the mesentery. Mesenteric edema/inflammatory stranding in the central abdomen. Vascular structures: Small paraesophageal varices. Lymph nodes: No abnormal lymph nodes. Bladder:Unremarkable. Pelvic organs: No acute abnormality Bones: No acute osseous abnormality. Soft tissues: Unremarkable.. IMPRESSION: Inflammatory changes and small amount of fluid in the mesentery and lesser sac. Differential possibilities include duodenitis versus pancreatitis. There are no drainable fluid collections. Nonobstructive right nephrolithiasis. Cirrhotic morphology of the liver and findings of portal hypertension including mild splenomegaly and abdominal varices.
[2018-11-08 06:57] VITALS: BP 153/81
== END 2018-11-08 06:57 | disposition home or self-care (01) ==
LOC: ER 03:15
DX: R10.10 Upper abdominal pain, unspecified (principal); R10.9 Unspecified abdominal pain; M54.5 Low back pain; M54.2 Cervicalgia; G89.29 Other chronic pain; R11.0 Nausea; Z87.891 Personal history of nicotine dependence; I10 Essential (primary) hypertension
CPT/HCPCS: 99284; 96374; 36415; 83605; 83690; 85025; 80053; 81001; 76380; J2405; A9270

== ENCOUNTER 2018-11-14 17:22 | Emergency (ER) | payer MEDICARE ==
[2018-11-14 19:14] LABS: APPEARANCE,URINE SLIGHTLY-CLOUDY; BILIRUBIN,URINE NEGATIVE (NEGATIVE); GLUCOSE, URINE NEGATIVE (NEGATIVE); KETONES,URINE NEGATIVE (NEGATIVE); LEUKOCYTE ESTERASE,URINE NEGATIVE (NEGATIVE); NITRITE,URINE NEGATIVE (NEGATIVE); PROTEIN,URINE NEGATIVE (NEGATIVE); URINE SPECIFIC GRAVITY 1.025
[2018-11-14 19:15] LABS: COLOR,URINE DARK YELLOW
--- NOTE | 2018-11-14 19:23 | ER Document Report ---
Entered by ERIKA ALEXANDER SCRIBE 11/14/18 [id number] Acting as scribe for:ESTEFANIA FLORES DO ED Medical Screen (RME) - General Chief Complaint: Abdominal Pain Stated Complaint: BACK PAIN Time Seen by Provider: 11/14/18 18:18 Mode of Arrival: Ambulatory Information source: Patient Notes: Patient is a 58-year-old male with hepatitis C, liver failure and history of kidney stones presented to the emergency department complaining of abdominal pain and bloating onset last night. Patient states that the pain has been intermittent for several months but today the pain is sharper. He also complains of nausea. He denies any vomiting or fevers. Patient states his PCP is in [place] and reports being told his liver was functioning at 5-7%.He states he was referred to pain management and prescribed oxycodone tens. He states he recently moved to [place] 2 weeks ago. Review of records does show that the patient has been seen here in the past, he has actually been sent a letter regarding chronic pain management and possible inappropriate drug-seeking behavior. I have greeted and performed a rapid initial assessment of this patient. A comprehensive ED assessment and evaluation of the patient, analysis of test results and completion of the medical decision making process will be conducted by additional ED providers. GENERAL: Alert, interacts well. No acute distress. HEAD: Normocephalic, Atraumatic. EYES: Pupils equal, round, and reactive to light. EOMI. ENT: Oral mucosa moist, tongue midline. NECK: Full range of motion. Supple. Trachea midline. LUNGS: Clear to auscultation bilaterally, no wheezes, rales, or rhonchi. No respiratory distress. HEART: Regular rate and rhythm. No murmurs, gallops, or rubs. ABDOMEN: Soft, RUQ tender palpation. Non-distended. Bowel sounds present in all 4 quadrants. EXTREMITIES: Moves all four extremities spontaneously. PSYCH: Normal affect, normal mood. TRAVEL OUTSIDE OF THE U.S. IN LAST 30 DAYS: No - Related Data Allergies/Adverse Reactions: erythromycin base Allergy (Verified 11/14/18 18:13) hydromorphone [From Dilaudid] Adverse Reaction (Verified 11/14/18 18:13) palpations ketorolac [From Toradol] Adverse Reaction (Verified 11/14/18 18:13) Past Medical History - Social History Frequency of alcohol use: None Drug Abuse: None - Past Medical History Cardiac Medical History: Reports: Hx DVT, Hx Hypercholesterolemia, Hx Hypertension Neurological Medical History: Reports: Hx Cerebrovascular Accident - TIA Renal/ Medical History: Reports: Hx Kidney Stones. Denies: Hx Peritoneal Dialysis GI Medical History: Reports: Hx Hepatitis - History of hepatitis C. He has had treatment. Musculoskeltal Medical History: Reports Hx Arthritis Infectious Medical History: Reports: Hx Hepatitis - History of hepatitis C. He has had treatment. Past Surgical History: Reports: Hx Abdominal Surgery - hernia, Hx Cholecystectomy, Hx Orthopedic Surgery - Has had cervical spine surgery, r Knee Replacement, Hx Vascular Surgery - removal of DVTs in legs, IVC filter placed - Immunizations Hx Diphtheria, Pertussis, Tetanus Vaccination: No Physical Exam - Vital signs Vitals: Temp Pulse Resp BP Pulse Ox 98.7 F 94 18 172/94 H 100 11/14/18 17:32 11/14/18 17:32 11/14/18 17:32 11/14/18 17:32 11/14/18 17:32 Course - Vital Signs Vital signs: Temp Pulse Resp BP Pulse Ox 98.7 F 94 18 172/94 H 100 11/14/18 17:32 11/14/18 17:32 11/14/18 17:32 11/14/18 17:32 11/14/18 17:32 - Laboratory Result Diagrams: 11/14/18 18:59 11/14/18 18:59 Laboratory results interpreted by me: 11/14/18 18:59 Urine Blood MODERATE H Urine Urobilinogen 4.0 H I personally performed the services described in the documentation, reviewed and edited the documentation which was dictated to the scribe in my presence, and it accurately records my words and actions.
[2018-11-14 19:27] LABS: ABSOLUTE EOSINOPHILS # (AUTO) 0.1 10^3/uL (0.0-0.6); ABSOLUTE LYMPHOCYTES (AUTO) 1.3 10^3/uL (0.5-4.7); ABSOLUTE MONOCYTES (AUTO) 0.7 10^3/uL (0.1-1.4); ABSOLUTE NEUT (AUTO) 4.3 10^3/uL (1.7-8.2); BASOPHILS % (AUTO) 0.3 % (0-2); HEMATOCRIT 44.5 % (37.9-51.0); HEMOGLOBIN 14.7 g/dL (13.5-17.0); LYMPHOCYTES % (AUTO) 21.2 % (13-45); MEAN CORPUSCULAR HEMOGLOBIN 31.3 pg (27.0-33.4); MEAN CORPUSCULAR HGB CONC 33.1 g/dL (32.0-36.0); MEAN CORPUSCULAR VOLUME 95 fl (80-97); MONOCYTES % (AUTO) 10.6 % (3-13); RED CELL DISTRIBUTION WIDTH 15.4 % (11.5-14.0); SEGMENTED NEUTROPHILS % (AUTO) 66.9 % (42-78); TOTAL CELLS COUNTED % (AUTO) 100 %; WHITE BLOOD COUNT 6.3 10^3/uL (4.0-10.5)
[2018-11-14 19:33] LABS: ALANINE AMINOTRANSFERASE 25 U/L (21-72); ALBUMIN 3.8 g/dL (3.5-5.0); ALKALINE PHOSPHATASE 117 U/L (38-126); ANION GAP 9 (5-19); ASPARTATE AMINO TRANSFERASE 55 U/L (17-59); BILIRUBIN,DIRECT 0.8 mg/dL (0.0-0.4); BILIRUBIN,TOTAL 2.2 mg/dL (0.2-1.3); BLOOD UREA NITROGEN 9 mg/dL (7-20); CARBON DIOXIDE 24 mmol/L (22-30); CHLORIDE 110 mmol/L (98-107); GLUCOSE 79 mg/dL (75-110); POTASSIUM 4.7 mmol/L (3.6-5.0); SODIUM 142.5 mmol/L (137-145)
[2018-11-14] MEDS ORDERED: OXYCODONE HCL SR 10 MG TABLET PO ONE (19:42)
[2018-11-14 20:07] LABS: PLATELET COUNT 39 10^3/uL (150-450)
[2018-11-14] MEDS ORDERED: NORMAL SALINE 1000 ML 1,000 ML IV ONE (21:11)
--- NOTE | 2018-11-14 21:36 | RADIOLOGY REPORT (SQ) ---
CT ABDOMEN PELVIS WITHOUT IV CONTRAST HISTORY: Right flank pain. COMPARISON: None. TECHNIQUE: CT scan of the abdomen and pelvis without IV contrast. This exam was performed according to our departmental dose-optimization program, which includes automated exposure control, adjustment of the mA and/or kV according to patient size and/or use of iterative reconstruction technique. FINDINGS: The lung bases are clear. No pleural or pericardial effusions. There is no hiatal hernia. The liver has a nodular contour with multiple hepatic hilar lymph nodes. There has been a prior cholecystectomy. Spleen is mildly enlarged with splenic varices. Mild inflammatory stranding surrounding the pancreatic head and second portion of the duodenum. The adrenal glands are normal. There is a 1 cm nonobstructing stone in the upper pole right kidney. The pelvic organs are unremarkable. No small bowel obstruction. Appendix is not seen. There is inflammatory stranding within the mesentery with multiple mesenteric lymph nodes as well as retroperitoneal lymph nodes. The aorta is normal caliber. No acute osseous findings are appreciated. There is no body wall hernia. IMPRESSION: 1. 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 2. Inflammatory stranding surrounding the pancreatic head and duodenum which is likely reactive to mesenteric changes. However, correlate with lab values. 3. Query cirrhotic liver with splenomegaly and splenic varices as well as retroperitoneal and hepatic hilar lymph nodes. 4. A 1 cm nonobstructing stone in the upper pole right kidney. No hydronephrosis.
--- NOTE | 2018-11-14 22:32 | ER Document Report ---
ED General - General Chief Complaint: Abdominal Pain Stated Complaint: BACK PAIN Time Seen by Provider: 11/14/18 18:18 Mode of Arrival: Ambulatory Notes: Patient is a 58-year-old male presents to the emergency department for generalized right back pain radiating down around to his right lower quadrant. Patient states at times he does have some right upper quadrant pain but is denying any epigastric abdominal pain. Patient is denying any vomiting or diarrhea. States intermittently over the last 3-4 months he has noticed that at times he does get nauseous but is denying any nausea currently. 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 States he was told by his primary care provider in [place] that he also only has 5-7% of his liver working. States he does have a history of intermittent pancreatitis that he is also followed by his primary care provider. Patient states he was at this facility on 11/08/2018 and diagnosed with kidney stone. States he feels as though the "kidney stone is moving." States he was told that his kidney stone is too big to pass and it will not pass on his own which is why he presents to the emergency room. Patient states he was given pain medication when he was discharged on 11/08/2018 and states that the pain has continued status quo, not increasing or decreasing and he would like some more pain medications. Patient then states he also has a history of lower back injury. States his primary care provider tried to send him to pain management but he could not find a pain management provider. Patient has not followed up with any primary care provider, gastroenterology, urology, pain management. Past medical history: Hepatitis C and cirrhosis, pancreatitis, chronic back pain Medications: Oxycodone 10 Allergies: Tylenol, erythromycin, Dilaudid, Toradol Patient has a history of a cholecystectomy and an appendectomy TRAVEL OUTSIDE OF THE [place].S. IN LAST 30 DAYS: No - Related Data Allergies/Adverse Reactions: erythromycin base Allergy (Verified 11/14/18 18:13) hydromorphone [From Dilaudid] Adverse Reaction (Verified 11/14/18 18:13) palpations ketorolac [From Toradol] Adverse Reaction (Verified 11/14/18 18:13) Past Medical History - General Information source: Patient - Social History Smoking Status: Current Every Day Smoker Frequency of alcohol use: None Drug Abuse: None Family History: Reviewed & Not Pertinent Patient has suicidal ideation: No Patient has homicidal ideation: No - Past Medical History Cardiac Medical History: Reports: Hx DVT, Hx Hypercholesterolemia, Hx H ypertension Neurological Medical History: Reports: Hx Cerebrovascular Accident - TIA Renal/ Medical History: Reports: Hx Kidney Stones. Denies: Hx Peritoneal Dialysis GI Medical History: Reports: Hx Hepatitis - History of hepatitis C. He has had treatment. Musculoskeletal Medical History: Reports Hx Arthritis Infectious Medical History: Reports: Hx Hepatitis - History of hepatitis C. He has had treatment. Past Surgical History: Reports: Hx Abdominal Surgery - hernia, Hx Cholecystectomy, Hx Orthopedic Surgery - Has had cervical spine surgery, r Knee Replacement, Hx Vascular Surgery - removal of DVTs in legs, IVC filter placed - Immunizations Hx Diphtheria, Pertussis, Tetanus Vaccination: No Review of Systems - Review of Systems Constitutional: denies: Fever, Weakness EENT: No symptoms reported Cardiovascular: No symptoms reported. denies: Chest pain, Dyspnea Respiratory: No symptoms reported Gastrointestinal: See HPI Genitourinary: denies: Burning, Dysuria Male Genitourinary: No symptoms reported Musculoskeletal: No symptoms reported Skin: No symptoms reported Hematologic/Lymphatic: See HPI Neurological/Psychological: No symptoms reported Physical Exam - Vital signs Vitals: Temp Pulse Resp BP Pulse Ox 98.7 F 94 18 172/94 H 100 11/14/18 17:32 11/14/18 17:32 11/14/18 17:32 11/14/18 17:32 11/14/18 17:32 - Notes Notes: GENERAL: Alert, interacts well. No acute distress. HEAD: Normocephalic, atraumatic. EYES: Pupils equal, round, and reactive to light. Extraocular movements intact. No scleral icterus noted ENT: Oral mucosa moist, tongue midline. NECK: Full range of motion. Supple. Trachea midline. LUNGS: Clear to auscultation bilaterally, no wheezes, rales, or rhonchi. No respiratory distress. HEART: Regular rate and rhythm. No murmur ABDOMEN: Obese soft. Non-distended. Bowel sounds present in all 4 quadrants. Very minor right epigastric abdominal pain, slight right flank pain noted radiating around to the patient's right lower quadrant. EXTREMITIES: Moves all 4 extremities spontaneously. No edema, normal radial and dorsalis pedis pulses bilaterally. No cyanosis. BACK: no cervical, thoracic, lumbar midline tenderness. No saddle anesthesia, normal distal neurovascular exam. NEUROLOGICAL: Alert and oriented x3. Normal speech. cranial nerves II through XII grossly intact PSYCH: Normal affect, normal mood. SKIN: Warm, dry, normal turgor. No rashes or lesions noted. Course - Re-evaluation Re-evalutation: Patient's labs show no signs of leukocytosis. Patient's platelet count is 39 which is to be expected in status quo for the patient's last multiple visits. Patient does have an increase in his bilirubin which is also to be expected because of his liver failure. Patient's lactate is 2.1, patient's lipase has increased to 645.3. Patient continues without any epigastric pain. He is able to p.o. liquids in the emergency department with no nausea or vomiting. Patient's pain has overall resolved with treatments of one oxycodone tab in the emergency room. Patient's urine shows no signs of infection. Discussed patient's labs results with my attending Dr. Meme Shay who suggest to repeat CT. CT is suggesting mesenteric panniculitis. Continues with inflammatory stranding surrounding the pancreatic head which is likely reactive to mesenteric changes. Patient does have a 1 cm nonobstructing stone in the upper pole of the right kidney with no hydronephrosis seen. Discussed CT results of mesenteric panniculitis with surgeon Dr. Ndiaye who states this is nonsurgical in nature patient does not need to be seen by himself. Discussed close follow-up with primary care provider for repeat labs and imaging. Patient continues to be pain-free, POing fluids with no problems, stable for discharge - Vital Signs Vital signs: Temp Pulse Resp BP Pulse Ox 98.7 F 82 18 136/75 H 99 11/14/18 17:32 11/14/18 21:27 11/14/18 21:27 11/14/18 21:27 11/14/18 21:27 - Laboratory Result Diagrams: 11/14/18 18:59 11/14/18 18:59 Laboratory results interpreted by me: 11/14/18 11/14/18 11/14/18 18:59 18:59 18:59 RDW 15.4 H Plt Count 39 L Chloride 110 H Total Bilirubin 2.2 H Direct Bilirubin 0.8 H Lipase Urine Blood MODERATE H Urine Urobilinogen 4.0 H 11/14/18 18:59 RDW Plt Count Chloride Total Bilirubin Direct Bilirubin Lipase 645.3 H Urine Blood Urine Urobilinogen Discharge - Discharge Clinical Impression: Mesenteric panniculitis, Flank pain Pancreatitis Qualifiers: Chronicity: chronic Pancreatitis type: other Qualified Code(s): K86.1 - Other chronic pancreatitis Condition: Stable Disposition: HOME, SELF-CARE Instructions: Abdominal Pain ([facility]), Pancreatitis ([facility]) Additional Instructions: As we discussed you have been seen and treated in the emergency department for your generalized abdominal pain. Your images do suggest that your pancreas is i nflamed. These lab results needs to be monitored by a primary care provider. I have provided multiple phone numbers within this packet for you to follow-up with to include gastroenterology. You should return to the emergency room for any other concerning symptoms. Referrals: JAIORN TAYLOR MD [ACTIVE STAFF] - Follow up as needed LEONARD DESIR MD [COMMUNITY BASED STAFF] - Follow up as needed KATERINA TABARES MD [[facility]] - Follow up as needed
[2018-11-14 23:20] VITALS: BP 157/87
== END 2018-11-14 23:20 | disposition home or self-care (01) ==
LOC: ER 17:22
DX: K86.1 Other chronic pancreatitis (principal); K65.4 Sclerosing mesenteritis; R10.31 Right lower quadrant pain; R10.9 Unspecified abdominal pain; M54.9 Dorsalgia, unspecified; G89.29 Other chronic pain; Z79.899 Other long term (current) drug therapy; F17.200 Nicotine dependence, unspecified, uncomplicated; I10 Essential (primary) hypertension
CPT/HCPCS: 99284; 96360; 96361; 36415; 82140; 83690; 85025; 80053; 81001; 83605; 74176; A9270; J7030

== ENCOUNTER 2018-12-01 14:23 | Emergency (ER) | payer MEDICARE ==
[2018-12-01] MEDS ORDERED: TRAMADOL HCL 50 MG TABLET PO ONE (15:14)
--- NOTE | 2018-12-01 15:15 | ER Document Report ---
ED Medical Screen (RME) - General Chief Complaint: Back Pain Stated Complaint: LOWER BACK PAIN Time Seen by Provider: 12/01/18 15:06 Notes: 58-year-old male to the emergency department chief complaint of low back pain, lower extremity edema and swelling. History of hepatitis C with liver failure. On a transplant list. States that he passed out last night. Has had been having very significant low back pain that radiates down into his legs. I have greeted and performed a rapid initial assessment of this patient. A comprehensive ED assessment and evaluation of the patient, analysis of test results and completion of the medical decision making process will be conducted by additional ED providers. TRAVEL OUTSIDE OF THE U.S. IN LAST 30 DAYS: No - Related Data Allergies/Adverse Reactions: erythromycin base Allergy (Verified 12/01/18 14:25) hydromorphone [From Dilaudid] Adverse Reaction (Verified 12/01/18 14:25) palpations ketorolac [From Toradol] Adverse Reaction (Verified 12/01/18 14:25) Past Medical History - Past Medical History Cardiac Medical History: Reports: Hx DVT, Hx Hypercholesterolemia, Hx Hypertension Neurological Medical History: Reports: Hx Cerebrovascular Accident - TIA Renal/ Medical History: Reports: Hx Kidney Stones. Denies: Hx Peritoneal Dialysis GI Medical History: Reports: Hx Hepatitis - History of hepatitis C. He has had treatment. Musculoskeltal Medical History: Reports Hx Arthritis Infectious Medical History: Reports: Hx Hepatitis - History of hepatitis C. He has had treatment. Past Surgical History: Reports: Hx Abdominal Surgery - hernia, Hx Cholecystectomy, Hx Orthopedic Surgery - Has had cervical spine surgery, r Knee Replacement, Hx Vascular Surgery - removal of DVTs in legs, IVC filter placed - Immunizations Hx Diphtheria, Pertussis, Tetanus Vaccination: No Physical Exam - Vital signs Vitals: Temp Pulse Resp BP Pulse Ox 99.0 F 90 18 177/96 H 100 12/01/18 14:32 12/01/18 14:32 12/01/18 14:32 12/01/18 14:32 12/01/18 14:32 Course - Vital Signs Vital signs: Temp Pulse Resp BP Pulse Ox 99.0 F 90 18 177/96 H 100 12/01/18 14:32 12/01/18 14:32 12/01/18 14:32 12/01/18 14:32 12/01/18 14:32
[2018-12-01 15:56] LABS: AMORPHOUS SEDIMENT,URINE TRACE /HPF; APPEARANCE,URINE SLIGHTLY-CLOUDY; BILIRUBIN,URINE NEGATIVE (NEGATIVE); COLOR,URINE YELLOW; GLUCOSE, URINE NEGATIVE (NEGATIVE); KETONES,URINE NEGATIVE (NEGATIVE); LEUKOCYTE ESTERASE,URINE NEGATIVE (NEGATIVE); NITRITE,URINE NEGATIVE (NEGATIVE); PROTEIN,URINE NEGATIVE (NEGATIVE); URINE SPECIFIC GRAVITY 1.021
[2018-12-01 16:28] LABS: INTERNATIONAL RATION (INR) 1.32; PARTIAL THROMBOPLASTIN TIME 33.3 SEC (23.5-35.8)
[2018-12-01 16:29] LABS: ABSOLUTE EOSINOPHILS # (AUTO) 0.1 10^3/uL (0.0-0.6); ABSOLUTE LYMPHOCYTES (AUTO) 1.1 10^3/uL (0.5-4.7); ABSOLUTE MONOCYTES (AUTO) 0.5 10^3/uL (0.1-1.4); ABSOLUTE NEUT (AUTO) 2.3 10^3/uL (1.7-8.2); BASOPHILS % (AUTO) 0.3 % (0-2); EOSINOPHILS % (AUTO) 2.8 % (0-6); HEMOGLOBIN 13.7 g/dL (13.5-17.0); LYMPHOCYTES % (AUTO) 26.5 % (13-45); MEAN CORPUSCULAR HEMOGLOBIN 32.9 pg (27.0-33.4); MEAN CORPUSCULAR HGB CONC 34.3 g/dL (32.0-36.0); MEAN CORPUSCULAR VOLUME 96 fl (80-97); MONOCYTES % (AUTO) 12.9 % (3-13); RED BLOOD COUNT 4.17 10^6/uL (4.35-5.55); RED CELL DISTRIBUTION WIDTH 16.2 % (11.5-14.0); SEGMENTED NEUTROPHILS % (AUTO) 57.5 % (42-78); TOTAL CELLS COUNTED % (AUTO) 100 %
[2018-12-01 16:34] LABS: ALANINE AMINOTRANSFERASE 30 U/L (21-72); ALBUMIN 3.4 g/dL (3.5-5.0); ALKALINE PHOSPHATASE 82 U/L (38-126); ASPARTATE AMINO TRANSFERASE 45 U/L (17-59); BILIRUBIN,DIRECT 0.4 mg/dL (0.0-0.4); BILIRUBIN,TOTAL 1.6 mg/dL (0.2-1.3); BLOOD UREA NITROGEN 10 mg/dL (7-20); CALCIUM 9.7 mg/dL (8.4-10.2); GLUCOSE 70 mg/dL (75-110); POTASSIUM 4.6 mmol/L (3.6-5.0); TOTAL PROTEIN 6.1 g/dL (6.3-8.2)
[2018-12-01 16:39] LABS: CARBON DIOXIDE 25 mmol/L (22-30); CHLORIDE 115 mmol/L (98-107); SODIUM 144.2 mmol/L (137-145)
[2018-12-01 16:43] LABS: ANION GAP 4 (5-19)
[2018-12-01 16:45] LABS: PLATELET COUNT 36 10^3/uL (150-450)
[2018-12-01] MEDS ORDERED: OXYCODONE HCL IR 5 MG TABLET PO ONE (17:39)
--- NOTE | 2018-12-01 18:14 | ER Document Report ---
Doctor's Note Notes: 12/01/18 18:13 Patient seen at triage and workup started. Ultrasound ordered for the abdomen. die technician returns patient back stating that while she was doing the ultrasound patient was complaining that he does not feel like life is worth living. States that he is having thoughts of ending it all but has no plan. 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 I guess he did verbalize that he was willing to talk to a counselor and he realizes he needs to speak to a counselor. This information is being communicated so that subsequent provider can address these issues privately with the patient.
--- NOTE | 2018-12-01 18:34 | RADIOLOGY REPORT (SQ) ---
EXAM DESCRIPTION: KUB/ABDOMEN (SINGLE VIEW) COMPLETED DATE/TIME: 12/01/2018 6:14 pm REASON FOR STUDY: hc kid stone COMPARISON: 11/14/2018 CT NUMBER OF VIEWS: One view. TECHNIQUE: Supine radiographic image of the abdomen acquired. LIMITATIONS: None. FINDINGS: BOWEL GAS PATTERN: Non-obstructive bowel gas pattern. No dilated loops. CALCIFICATIONS: 9 mm calcified stone overlying the upper pole the right kidney, similar to the prior exam. SOFT TISSUES: No gross mass or suggestion of organomegaly. HARDWARE: None in the abdomen. BONES: No acute fracture. No worrisome bone lesions. OTHER: No other significant finding. IMPRESSION: NO RADIOGRAPHIC EVIDENCE FOR ACUTE ABDOMINAL DISEASE.9 mm calcified stone overlying the upper pole the right kidney, similar to the prior exam. TECHNICAL DOCUMENTATION: JOB ID: [id number] [place]-72 2010 [employer]- All Rights Reserved Reading location - IP/workstation name: [email or web address]
--- NOTE | 2018-12-01 18:59 | RADIOLOGY REPORT (SQ) ---
EXAM DESCRIPTION: U/S ABDOMEN COMPLETE W/O DOP COMPLETED DATE/TIME: 12/01/2018 6:37 pm REASON FOR STUDY: Abdominal pain, history of cirrhosis, pain in back COMPARISON: 02/22/2017 TECHNIQUE: Dynamic and static grayscale images acquired of the abdomen and recorded on PACS. Additio nal selected color Doppler and spectral images recorded. Note: Exam does not meet criteria for a complete doppler/duplex scan LIMITATIONS: Study limited due to acoustical interference from fat or from air in the bowel. FINDINGS: PANCREAS: Poorly seen secondary to acoustical interference from fat or from air in the bow el. No visualized masses. Duct normal caliber as seen. LIVER: Echotexture is coarse with increased echogenicity, similar to the prior study. LIVER VASCULATURE: Normal directional flow of the main portal vein and hepatic veins. GALLBLADDER: Surgically absent. ULTRASOUND-DETECTED VILLANUEVA'S SIGN: Negative. INTRAHEPATIC DUCTS AND COMMON DUCT: CBD and intrahepatic ducts normal caliber. No filling defects. INFERIOR VENA CAVA: Normal flow. AORTA: No aneurysm. RIGHT KIDNEY: Normal size. Normal echogenicity. No solid or suspicious masses. No hydronephrosis. 1 .5 cm upper pole stone . LEFT KIDNEY: Normal size. Normal echogenicity. No solid or suspicious masses. No hydronephrosis. No calcifications. SPLEEN:Mildly increased size. No solid masses. PERITONEAL AND PLEURAL SPACES: No ascites or effusions. OTHER: No other significant finding. IMPRESSION: No acute inflammatory changes or free fluid. Mild heterogeneous echotexture of the live r, similar to the prior study. Right nephrolithiasis. TECHNICAL DOCUMENTATION: JOB ID: [id number] [place]-72 2010 [employer]- All Rights Reserved Reading location - IP/workstation name: [email or web address]
--- NOTE | 2018-12-01 20:33 | ER Document Report ---
ED General - General Chief Complaint: Back Pain Stated Complaint: LOWER BACK PAIN Time Seen by Provider: 12/01/18 20:33 Mode of Arrival: Ambulatory Information source: Patient Notes: HISTORY OF PRESENT ILLNESS: Patient is a 58-year-old male with a past medical history of multiple chronic conditions including cirrhosis secondary to hepatitis C who presents with abdominal pain. Of note, patient reports that he is out of all of his medications and is awaiting referral to a new physician. Location: Diffuse abdomen Onset: Chronic Alleviation: None Provocation: Movement Quality: Aching, pressure Radiation: None Severity: Currently moderate, severe at worst Timing: Constant History of abdominal surgery: None Associated symptoms: Nausea but no vomiting, no fevers or chills, no confusion o r disorientation, no tremors Last bowel movement: Today and normal REVIEW OF SYSTEMS: CONSTITUTIONAL : Denies fever or chills, no sweats. Denies recent illness. EENT: Denies eye, ear, throat, or mouth pain or symptoms. Denies nasal or sinus congestion. CARDIOVASCULAR: Denies chest pain. Denies swelling of the legs. RESPIRATORY: Denies cough, cold, or chest congestion. Denies shortness of breath or difficulty breathing. Denies wheezing. GASTROINTESTINAL: Positive for abdominal pain. Positive for nausea but no vomiting or diarrhea. Denies constipation. GENITOURINARY: Denies difficulty urinating, painful urination, burning, frequency, or blood in urine. FEMALE GENITOURINARY: Denies vaginal bleeding, abnormal or irregular periods. MUSCULOSKELETAL: Denies neck or back pain or joint pain or swelling. SKIN: Denies rash or skin lesions. HEMATOLOGIC : Denies easy bruising or bleeding. LYMPHATIC: Denies swollen, enlarged glands. NEUROLOGICAL: Denies altered mental status or loss of consciousness. Denies headache. Denies weakness or paralysis or loss of use of either side. Denies problems with gait or speech. Denies sensory or motor loss. PSYCHIATRIC: Denies anxiety or stress or depression. All other systems reviewed and negative. PHYSICAL EXAMINATION: GENERAL: Well-appearing, well-nourished and in no acute distress. HEAD: Atraumatic, normocephalic. No scalp deformity, depression, or crepitance. EYES: Pupils are 3 mm and equal/round/reactive to light, extraocular movements intact, sclera anicteric, conjunctiva are normal. ENT: Nares patent bilaterally, oropharynx. Moist mucous membranes. No tonsil hypertrophy. NECK: Normal range of motion, supple without lymphadenopathy. LUNGS: Breath sounds present, equal, and clear to auscultation bilaterally. No wheezes, rales, or rhonchi. HEART: Regular rate and rhythm without murmurs, rubs, or gallops. 2+ peripheral pulses. Normal capillary refill. ABDOMEN: Soft and diffusely distended but no rigidity or peritoneal signs, mild diffuse tenderness, no fluid wave. Normoactive bowel sounds. No guarding, no rebound. No masses appreciated. BACK: Normal contour, no midline tenderness. Rectal exam deferred. GENITAL/PELVIC: Deferred. EXTREMITIES: Normal range of motion, no pitting or edema. No cyanosis. NEUROLOGICAL: No focal neurological deficits. Moves all extremities spontaneously and on command. PSYCH: Normal mood, normal affect. No suicidal thoughts/ideations. No homocidal thoughts/ideations. No hallucinations. SKIN: Warm, dry, normal turgor, no rashes or lesions noted. ASSESSMENT AND PLAN: This patient is a 58-year-old male who presents with pain that could be secondary to underlying cirrhosis versus colitis versus UTI versus chronic abdominal pain. 1. Will obtain labs, urine, ammonia, CT head, and coagulation panel. 2. Will give home medications and reassess. TRAVEL OUTSIDE OF THE [place] IN LAST 30 DAYS: No - Related Data Allergies/Adverse Reactions: erythromycin base Allergy (Verified 12/01/18 14:25) hydromorphone [From Dilaudid] Adverse Reaction (Verified 12/01/18 14:25) palpations ketorolac [From Toradol] Adverse Reaction (Verified 12/01/18 14:25) Past Medical History - General Information source: Patient - Social History Smoking Status: Current Every Day Smoker Chew tobacco use (# tins/day): No Frequency of alcohol use: None Drug Abuse: None Lives with: Family Family History: Reviewed & Not Pertinent Patient has suicidal ideation: No Patient has homicidal ideation: No - Past Medical History Cardiac Medical History: Reports: Hx DVT, Hx Hypercholesterolemia, Hx Hypert ension Pulmonary Medical History: Reports: None EENT Medical History: Reports: None Neurological Medical History: Reports: Hx Cerebrovascular Accident - TIA Endocrine Medical History: Reports: None Renal/ Medical History: Reports: Hx Kidney Stones. Denies: Hx Peritoneal D ialysis Malignancy Medical History: Reports None GI Medical History: Reports: Hx Hepatitis - History of hepatitis C. He has had treatment. Musculoskeletal Medical History: Reports Hx Arthritis Skin Medical History: Reports None Psychiatric Medical History: Reports: None Traumatic Medical History: Reports: None Infectious Medical History: Reports: Hx Hepatitis - History of hepatitis C. He has had treatment. Past Surgical History: Reports: Hx Abdominal Surgery - hernia, Hx Cholecystectomy, Hx Orthopedic Surgery - Has had cervical spine surgery, r Knee Replacement, Hx Vascular Surgery - removal of DVTs in legs, IVC filter placed - Immunizations Hx Diphtheria, Pertussis, Tetanus Vaccination: No Physical Exam - Vital signs Vitals: Temp Pulse Resp BP Pulse Ox 99.0 F 90 18 177/96 H 100 12/01/18 14:32 12/01/18 14:32 12/01/18 14:32 12/01/18 14:32 12/01/18 14:32 Course - Re-evaluation Re-evalutation: 12/01/18 23:[address] is negative. Labs, including lipase and ammonia, or normal. Patient w ill be discharged home with return precautions and follow-up. Patient reports both understanding and agreeing with plan. - Vital Signs Vital signs: Temp Pulse Resp BP Pulse Ox 99.0 F 90 18 177/96 H 100 12/01/18 14:32 12/01/18 14:32 12/01/18 14:32 12/01/18 14:32 12/01/18 14:32 - Laboratory Result Diagrams: 12/01/18 16:02 12/01/18 16:02 Laboratory results interpreted by me: 12/01/18 12/01/18 12/01/18 15:14 16:02 16:02 RBC 4.17 L RDW 16.2 H Plt Count 36 L PT 17.0 H Chloride Anion Gap Glucose Total Bilirubin Total Protein Albumin Urine Urobilinogen 4.0 H 12/01/18 16:02 RBC RDW Plt Count PT Chloride 115 H Anion Gap 4 L Glucose 70 L Total Bilirubin 1.6 H Total Protein 6.1 L Albumin 3.4 L Urine Urobilinogen - Diagnostic Test Radiology reviewed: Image reviewed, Reports reviewed Discharge - Discharge Clinical Impression: Abdominal pain Qualifiers: Abdominal location: generalized Qualified Code(s): R10.84 - Generalized abdominal pain Condition: Good Disposition: HOME, SELF-CARE Instructions: Abdominal Pain ([facility]), Family Physicians / Practices Additional Instructions: You have been evaluated in the Emergency Department for abdominal pain. While here, you had blood work with a head scan that were all normal and it is now safe to be discharged home. 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 Return to the Emergency Department if you experience confusion, disorientation, difficulty walking, vomiting up blood, or any other concerning symptoms. Prescriptions: Oxycodone HCl [Oxy-Ir 5 mg Tablet] 5 mg PO Q6HP PRN #20 tab PRN Reason: For Pain Atenolol [Tenormin 50 mg Tablet] 50 mg PO DAILY #30 tablet Furosemide [Lasix 20 mg Tablet] 20 mg PO DAILY #30 tablet Lactulose 10 gm PO DAILY #450 ml Spironolactone 100 mg PO DAILY #30 tablet Referrals: JAIRON TAYLOR MD [ACTIVE STAFF] - Follow up as needed Print Language: Nepali
[2018-12-01] MEDS ORDERED: LACTULOSE SYRUP 20 GM/30 ML UDCUP PO ONE (21:22)
[2018-12-01] MEDS ORDERED: FUROSEMIDE 40 MG TABLET PO ONE (21:22)
--- NOTE | 2018-12-01 22:09 | RADIOLOGY REPORT (SQ) ---
EXAM DESCRIPTION: CT HEAD WITHOUT IV CONTRAST COMPLETED DATE/TME: 12/01/2018 21:20 CLINICAL HISTORY: 58 years, Male, Fall COMPARISON: 04/14/2017 CT brain TECHNIQUE: 199 Images stored on PACS. All CT scanners at this facility use dose modulation, iterative reconstruction, and/or weight based dosing when appropriate to reduce radiation dose to as low as reasonably achievable (ALARA). [facility]: Dose Right [facility]: CareDose [facility]: Dose Right [facility]: Teradose 4D [facility]: [employer] LIMITATIONS: None. FINDINGS: The globes are intact. The paranasal sinuses and mastoid air cells are unremarkable. No displaced or depressed skull fracture. No intra or extra-axial hemorrhage. CT is limited for evaluation of acute infarct. No CT evidence for large or territorial acute infarct. No mass or midline shift IMPRESSION: Unremarkable unenhanced CT brain TECHNICAL DOCUMENTATION: Quality ID # [id number]: Final reports with documentation of one or more dose reduction techniques (e.g., Automated exposure control, adjustment of the mA and/or kV according to patient size, use of iterative reconstruction technique) copyright 2011 [employer]- All Rights Reserved
[2018-12-01 23:57] VITALS: BP 162/99
== END 2018-12-02 00:15 | disposition home or self-care (01) ==
LOC: ER 14:23
DX: R10.84 Generalized abdominal pain (principal); R11.0 Nausea; R14.0 Abdominal distension (gaseous); I10 Essential (primary) hypertension; F17.200 Nicotine dependence, unspecified, uncomplicated; Z87.19 Personal history of other diseases of the digestive system; Z86.19 Personal history of other infectious and parasitic diseases; Z87.442 Personal history of urinary calculi; Z88.1 Allergy status to other antibiotic agents; Z90.49 Acquired absence of other specified parts of digestive tract
CPT/HCPCS: 99284; 36415; 82140; 85025; 85610; 85730; 80053; 81001; 74018; 76700; 70450; A9270 ×4

== ENCOUNTER 2018-12-05 16:23 | Emergency (ER) | payer MEDICARE ==
[2018-12-05 17:10] LABS: ABSOLUTE EOSINOPHILS # (AUTO) 0.1 10^3/uL (0.0-0.6); ABSOLUTE LYMPHOCYTES (AUTO) 1.1 10^3/uL (0.5-4.7); ABSOLUTE MONOCYTES (AUTO) 0.5 10^3/uL (0.1-1.4); ABSOLUTE NEUT (AUTO) 2.6 10^3/uL (1.7-8.2); BASOPHILS % (AUTO) 0.5 % (0-2); EOSINOPHILS % (AUTO) 2.1 % (0-6); HEMATOCRIT 40.5 % (37.9-51.0); LYMPHOCYTES % (AUTO) 25.5 % (13-45); MEAN CORPUSCULAR HGB CONC 34.6 g/dL (32.0-36.0); MEAN CORPUSCULAR VOLUME 95 fl (80-97); RED BLOOD COUNT 4.25 10^6/uL (4.35-5.55); RED CELL DISTRIBUTION WIDTH 15.8 % (11.5-14.0); SEGMENTED NEUTROPHILS % (AUTO) 59.9 % (42-78); TOTAL CELLS COUNTED % (AUTO) 100 %; WHITE BLOOD COUNT 4.4 10^3/uL (4.0-10.5)
[2018-12-05 17:24] LABS: ALANINE AMINOTRANSFERASE 37 U/L (21-72); ALBUMIN 3.5 g/dL (3.5-5.0); ALKALINE PHOSPHATASE 93 U/L (38-126); ANION GAP 7 (5-19); ASPARTATE AMINO TRANSFERASE 45 U/L (17-59); BILIRUBIN,DIRECT 0.3 mg/dL (0.0-0.4); BILIRUBIN,TOTAL 1.8 mg/dL (0.2-1.3); BLOOD UREA NITROGEN 11 mg/dL (7-20); CALCIUM 9.3 mg/dL (8.4-10.2); CARBON DIOXIDE 25 mmol/L (22-30); CHLORIDE 109 mmol/L (98-107); GLUCOSE 93 mg/dL (75-110); POTASSIUM 3.8 mmol/L (3.6-5.0); SODIUM 140.7 mmol/L (137-145)
[2018-12-05 17:25] LABS: ACETAMINOPHEN < 10 ug/mL (10-30); ALCOHOL < 10 mg/dL (NONE DETECTED); SALICYLATE < 1.0 mg/dL (2.0-20.0)
[2018-12-05 17:40] LABS: PLATELET COUNT 32 10^3/uL (150-450)
[2018-12-05 17:42] LABS: APPEARANCE,URINE CLEAR; BILIRUBIN,URINE NEGATIVE (NEGATIVE); COLOR,URINE YELLOW; GLUCOSE, URINE NEGATIVE (NEGATIVE); KETONES,URINE NEGATIVE (NEGATIVE); LEUKOCYTE ESTERASE,URINE NEGATIVE (NEGATIVE); NITRITE,URINE NEGATIVE (NEGATIVE); PROTEIN,URINE NEGATIVE (NEGATIVE); URINE SPECIFIC GRAVITY 1.016
[2018-12-05 17:54] LABS: URINE AMPHETAMINES SCREEN NEGATIVE; URINE BARBITURATES SCREEN NEGATIVE; URINE BENZODIAZEPINES SCREEN NEGATIVE; URINE COCAINE SCREEN NEGATIVE; URINE MARIJUANA (THC) SCREEN NEGATIVE; URINE METHADONE SCREEN NEGATIVE; URINE PHENCYCLIDINE SCREEN NEGATIVE
[2018-12-05] MEDS ORDERED: BUPRENORPHINE HCL 2 MG SUBLINGUAL TABLET SL ONE (19:32)
--- NOTE | 2018-12-05 19:35 | ER Document Report ---
Addendum entered and electronically signed by CURT CARO MD 12/08/18 10:02: Discharge - Discharge Clinical Impression: Opiate withdrawal, Suicidal ideation Condition: Stable Disposition: HOME, SELF-CARE Additional Instructions: You have been evaluated and assessed at [facility] Emergency Department by both the medical and behavioral health teams after presenting for suicidal ideation and opiate withdrawal and are now deemed appropriate for discharge. While in the ED, you received an initial medical screening, lab work, EKG, medications, direct staff observation, clinical evaluation, physician assessment, and outpatient resources. You were cleared from both services and Mobile crisis resources were provided to you for when these situations arise. You are encouraged to develop positive coping skills through outpatient counseling and follow up with substance abuse and opiate replacement treatments as discussed. A list of local providers was given to you for follow up with a provider of your choosing. Please maintain compliance with your prescribed medication. DEPRESSION: Your evaluation reveals that you have mental depression. While symptoms may be vague, they often include disturbance of sleep, fatigue, loss of appetite, and general loss of interest in life. While depression may be a side effect of drugs, or a reaction to a major change in your life, many cases have no known cause. If depression is acute, and related to a major loss in your life, you can expect it to clear completely with time. If you have been depressed a long time, are prone to repeated bouts of depression or low mood, or have been thinking of suicide, get help. Depression can be treated with anti-depressant medication and counselling. Long-term depression will often take a few weeks to clear, even with appropriate medication. Follow-up care is important. SUICIDAL IDEATION: Suicidal ideation is a common medical term for thoughts about suicide, which may be as detailed as a formulated plan, without the suicidal act itself. Although most people who undergo suicidal ideation do not commit suicide, some go on to make suicide attempts. The range of suicidal ideation varies greatly from fleeting to detailed planning, role playing, and unsuccessful attempts. While thoughts about suicide are common, most people do not carry out serious actions to commit suicide. Based upon your evaluation and discussion with you, we do not believe you are currently at risk to act upon your thoughts of suicide. You have agreed to return to the Emergency Department, at any time, if you feel inclined to act upon your suicidal thoughts. FOLLOW-UP CARE: If you have been referred to a physician for follow-up care, call the physicians office for an appointment as you were instructed or within the next two days. If you experience worsening or a significant change in your symptoms, notify the physician immediately or return to the Emergency Department at any time for re-evaluation. Post-Traumatic Stress Disorder You seem to have post-traumatic stress disorder (PTSD). PTSD can cause chronic anxiety, sleeping problems, social withdrawal, and drug abuse. It can occur following a traumatic personal experience such as an accident, rape, assault, or of a loved one, or after experiencing a war or natural disaster. Symptoms may be delayed for days or even years. Emotional numbing, the inability to express grief, is usually the earliest sign. There may be apathy or agitation, aggression, and inability to perform ordinary tasks. Often there are frightening nightmares and sudden, intruding memories of the trauma. Panic attacks and feelings of guilt are common. Alcohol and drug use make post- traumatic stress symptoms worse. Medication may be temporarily necessary to combat anxiety, panic attacks, and depression. Medicine should not be considered a "cure." You must deal with the trauma and prepare to go on. Group therapy is often helpful. This helps you "talk through" the problem with others who share your symptoms. We can provide you with an appropriate referral. Prescriptions: Clonidine HCl [Catapres 0.1 mg Tablet] 0.1 mg PO QHS #14 tablet Hydroxyzine Pamoate [Vistaril 50 mg Capsule] 50 mg PO TIDP PRN #40 capsule PRN Reason: Risperidone [Risperdal 0.25 mg Tablet] 0.25 mg PO BID #28 tablet Referrals: [facility] [Provider Group] - Follow up as needed [facility] [Provider Group] - Follow up as needed Addendum entered and electronically signed by NOA VERMA LPCA 12/08/18 09:29: Discharge - Discharge Clinical Impression: Opiate withdrawal, Suicidal ideation Condition: Stable Disposition: HOME, SELF-CARE Additional Instructions: You have been evaluated and assessed at [facility] Emergency Department by both the medical and behavioral health teams after presenting for suicidal ideation and opiate withdrawal and are now deemed appropriate for discharge. While in the ED, you received an initial medical screening, lab work, EKG, medications, direct staff observation, clinical evaluation, physician assessment, and outpatient resources. You were cleared from both services and Mobile crisis resources were provided to you for when these situations arise. You are e ncouraged to develop positive coping skills through outpatient counseling and follow up with substance abuse and opiate replacement treatments as discussed. A list of local providers was given to you for follow up with a provider of your choosing. Please maintain compliance with your prescribed medication. DEPRESSION: Your evaluation reveals that you have mental depression. While symptoms may be vague, they often include disturbance of sleep, fatigue, loss of appetite, and general loss of interest in life. While depression may be a side effect of drugs, or a reaction to a major change in your life, many cases have no known cause. If depression is acute, and related to a major loss in your life, you can expect it to clear completely with time. If you have been depressed a long time, are prone to repeated bouts of depression or low mood, or have been thinking of suicide, get help. Depression can be treated with anti-depressant medication and counselling. Long-term depression will often take a few weeks to clear, even with appropriate medication. Follow-up care is important. SUICIDAL IDEATION: Suicidal ideation is a common medical term for thoughts about suicide, which may be as detailed as a formulated plan, without the suicidal act itself. Although most people who undergo suicidal ideation do not commit suicide, some go on to make suicide attempts. The range of suicidal ideation varies greatly from fleeting to detailed planning, role playing, and unsuccessful attempts. While thoughts about suicide are common, most people do not carry out serious actions to commit suicide. Based upon your evaluation and discussion with you, we do not believe you are currently at risk to act upon your thoughts of suicide. You have agreed to return to the Emergency Department, at any time, if you feel inclined to act upon your suicidal thoughts. FOLLOW-UP CARE: If you have been referred to a physician for follow-up care, call the [facility] office for an appointment as you were instructed or within the next two days. If you experience worsening or a significant change in your symptoms, notify the physician immediately or return to the Emergency Department at any time for re-evaluation. Post-Traumatic Stress Disorder You seem to have post-traumatic stress disorder (PTSD). PTSD can cause chronic anxiety, sleeping problems, social withdrawal, and drug abuse. It can occur following a traumatic personal experience such as an accident, rape, assault, or of a loved one, or after experiencing a war or natural disaster. Symptoms may be delayed for days or even years. Emotional numbing, the inability to express grief, is usually the earliest sign. There may be apathy or agitation, aggression, and inability to perform ordinary tasks. Often there are frightening nightmares and sudden, intruding memories of the trauma. Panic attacks and feelings of guilt are common. Alcohol and drug use make post- traumatic stress symptoms worse. Medication may be temporarily necessary to combat anxiety, panic attacks, and depression. Medicine should not be considered a "cure." You must deal with the trauma and prepare to go on. Group therapy is often helpful. This helps you "talk through" the problem with others who share your symptoms. We can provide you with an appropriate referral. Referrals: [facility] [Provider Group] - Follow up as needed [facility] [Provider Group] - Follow up as needed Original Note: ED General - General Chief Complaint: Suicidal Ideation Stated Complaint: IVC Time Seen by Provider: 12/05/18 18:31 Notes: Patient is a 58-year-old male with a past medical history of opiate dependency who presents complaining of suicidal ideation, total body pain and "needing my Percocet". Patient presents on IVC after his daughter was concerned about his threats of wanting to harm himself. The patient reports that he is constantly in pain, tells me virtually everywhere his body hurts and that without his medication he does not feel like he can live through life. States that he has been on chronic narcotics for at least 20 years. Has been off of these medications on a daily basis for at least several weeks. Does have frequent visits to the emergency department for back pain and complaining of needing narcotic pain medications. The patient denies specific plans to harm himself, states he does not feel like he needs to be here. Nothing seems to improve or worsen his symptoms. Denies history of mental health hospitalization or self-injurious behaviors in the past. TRAVEL OUTSIDE OF THE [place] IN LAST 30 DAYS: No - Related Data Allergies/Adverse Reactions: erythromycin base Allergy (Verified 12/01/18 14:25) hydromorphone [From Dilaudid] Adverse Reaction (Verified 12/01/18 14:25) palpations ketorolac [From Toradol] Adverse Reaction (Verified 12/01/18 14:25) Past Medical History - General Information source: Patient - Social History Smoking Status: Current Every Day Smoker Frequency of alcohol use: None Drug Abuse: None Lives with: Family Family History: Reviewed & Not Pertinent Patient has suicidal ideation: Yes Patient has homicidal ideation: No - Past Medical History Cardiac Medical History: Reports: Hx DVT, Hx Hypercholesterolemia, Hx Hypertension Neurological Medical History: Reports: Hx Cerebrovascular Accident - TIA Renal/ Medical History: Reports: Hx Kidney Stones. Denies: Hx Peritoneal Dialysis GI Medical History: Reports: Hx Hepatitis - History of hepatitis C. He has had treatment. Musculoskeletal Medical History: Reports Hx Arthritis Infectious Medical History: Reports: Hx Hepatitis - History of hepatitis C. He has had treatment. Past Surgical History: Reports: Hx Abdominal Surgery - hernia, Hx Cholecystectomy, Hx Orthopedic Surgery - Has had cervical spine surgery, r Knee Replacement, Hx Vascular Surgery - removal of DVTs in legs, IVC filter placed - Immunizations Hx Diphtheria, Pertussis, Tetanus Vaccination: No Review of Systems - Review of Systems Notes: Constitutional: Negative for fever. HENT: Negative for sore throat. Eyes: Negative for visual changes. Cardiovascular: Negative for chest pain. Respiratory: Negative for shortness of breath. Gastrointestinal: Negative for abdominal pain, vomiting or diarrhea. Genitourinary: Negative for dysuria. Musculoskeletal: Positive for diffuse musculoskeletal pain Skin: Negative for rash. Neurological: Negative for headaches, weakness or numbness. 10 point ROS negative except as marked above and in HPI. Physical Exam - Vital signs Vitals: Temp Pulse Resp BP Pulse Ox 97.9 F 71 18 158/79 H 99 12/05/18 19:27 12/05/18 19:27 12/05/18 19:27 12/05/18 19:27 12/05/18 19:27 Interpretation: Hypertensive Notes: PHYSICAL EXAMINATION: GENERAL: Well-appearing, well-nourished and in no acute distress. HEAD: Atraumatic, normocephalic. EYES: Pupils equal round and reactive to light, extraocular movements intact, sclera anicteric, conjunctiva are normal. ENT: nares patent, oropharynx clear without exudates. Moist mucous membranes. NECK: Normal range of motion, supple without lymphadenopathy LUNGS: Breath sounds clear to auscultation bilaterally and equal. No wheezes rales or rhonchi. HEART: Regular rate and rhythm without murmurs ABDOMEN: Soft, nontender, normoactive bowel sounds. No guarding, no rebound. No masses appreciated. EXTREMITIES: Normal range of motion, no pitting or edema. No cyanosis. NEUROLOGICAL: No focal neurological deficits. Moves all extremities spontaneously and on command. PSYCH: Normal mood, normal affect. SKIN: Warm, Dry, normal turgor, no rashes or lesions noted. Course - Re-evaluation Re-evalutation: 12/05/18 19:33 Patient presents with suicidal ideation, appears to have signs and symptoms consistent with chronic opiate withdrawal including dysphoria, agitation, nausea, lack of appetite, and hyperalgesia. The patient denies spending extended period of time talking about how he does not Percocet anymore and I have declined to provide him further doses of Percocet. I have advised him that long-term chronic opiate use is not appropriate and that he needs to get into medical detox therapy. I have offered him a dose of Suboxone here in the emergency department as an alternative which she has accepted. Medical screening exam is unremarkable, medical screening labs unremarkable. He is cleared for evaluation and disposition by psychiatry in the morning. IVC was placed in the community. - Vital Signs Vital signs: Temp Pulse Resp BP Pulse Ox 97.9 F 71 18 158/79 H 99 12/05/18 19:27 12/05/18 19:27 12/05/18 19:27 12/05/18 19:27 12/05/18 19:27 - Laboratory Result Diagrams: 12/05/18 16:55 12/05/18 16:55 Laboratory results interpreted by me: 12/05/18 12/05/18 12/05/18 16:55 16:55 16:55 RBC 4.25 L RDW 15.8 H Plt Count 32 L Chloride 109 H Total Bilirubin 1.8 H Total Protein 6.0 L Urine Blood SMALL H Urine Urobilinogen 4.0 H Salicylates < 1.0 L Acetaminophen < 10 L - EKG Interpretation by Me Additional EKG results interpreted by me: 12/05/18 19:33 Sinus rhythm, rate 72. No ST elevations or depressions. QTC 447. Discharge - Discharge Clinical Impression: Opiate withdrawal, Suicidal ideation Condition: Fair
--- NOTE | 2018-12-06 01:26 | EKG REPORT ---
SEVERITY:- NORMAL ECG - SINUS RHYTHM : Confirmed by: Nneka Gonzalez MD 06-Dec-2018 01:25:16
--- NOTE | 2018-12-06 09:38 | ER Document Report ---
Doctor's Note Notes: 12/06/18 09:38 Patient has been seen and evaluated resting comfortably no acute distress. Laboratory values previous provider note and vital signs have been evaluated. Patient otherwise looks to be stable for disposition/transfer.
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
[2018-12-06] MEDS ORDERED: BUPRENORPHINE HCL 2 MG SUBLINGUAL TABLET SL ONE (22:45)
--- NOTE | 2018-12-07 10:22 | ER Document Report ---
Doctor's Note Notes: 12/07/18 10:18 Rounds: Chart reviewed and patient interviewed. Patient is being evaluated for suicidal ideation. Patient is a long-term chronic opioid user. Says he has chronic pain from spinal condition and is been taking oxycodone for 20 years. Also says he has liver disease and is going to be seen at [facility] for possible liver transplant. Family is concerned because patient's behaviors out of his ordinary. Vital signs are all essentially normal. Lab studies were all essentially normal. Bilirubin was 1.8, other LFTs were normal. Patient appears to be medically stable for transfer or discharge. Patient is complaining of a headache. Patient has received 2 doses of Suboxone during his stay here in this ED. However, I do not believe that we are qualified to administer this medication. I discussed it with director of diagnostic imaging, Marcus [place], and he says that we are admitted to give an isolated dose of Suboxone to someone who is already in a withdrawal or detox program and understandably misses a dose. However, we are not supposed to initiate treatment in such situations. I am not going to give the patient a Suboxone. He cannot take Tylenol because of his liver disease. He says he cannot take ibuprofen either. I cannot think of anything else to prescribe for the patient's pain. Kody Flores MD
[2018-12-07] MEDS ORDERED: HYDROXYZINE PAMOATE 50 MG CAPSULE PO PRN (13:34)
[2018-12-07] MEDS: RISPERIDONE 0.25 MG TABLET PO SCH ×2 (13:53→17:13)
--- NOTE | 2018-12-07 18:49 | PSYCHOLOGICAL NOTE ---
Psych Note - Psych Note Date seen by psych provider: 12/07/18 Time seen by psych provider: 07:15 Psych Note: Reason for consult:SI, HI Contact Permissions: Patient is a 58 yo male with chronic pain from his knees and spine who has been prescribed opioids for the last 20 years and who has untreated PTSD with nightmares causing an inability to sleep. Patient as well has situational stressors at this time due to financial constraints and needing to re-establish his medical providers as he has just moved here from [place]. Patient has been withdrawing from opiates. Today he is remorseful, apologizing to this Clinician, staff, and about his fight with his over the phone last night. He discloses that she abuses his medication as well as pills off the street and so has a vested interest in him being kept in a hospital. He attributes running out of medication early to her. He also attributes his outbursts over the last few days as due to withdrawal and has decided to seek pain management with Suboxone rather than opiates. He says, "It's not you, not her, not me. This is the opiates. This isn't who I am am. 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 The drugs are ruining my life". Patient has a migraine today and is asking for alternative pain relief. He denies need for detox stating he's through the worst of it as he has been mostly off opiates for the last 2 months. He admits being an alcoholic in the past and correlates his addiction to opiates as similar. Patient is tearful about his behaviors saying that he doesn't mean to lash out, just get frustrated. He reports that he will stay in a hotel while seeking an alternative housing situation if the tensions are still high in his house. 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 Patient is alert and oriented x 4. Mood is remorseful with congruent tearful affect. Patient denies SI, HI, and AV/H, does not appear to be responding to internal stimuli, and no delusions were noted. Conversational speech was WNL for rate, tone, and prosody. Eye contact was maintained. Thought processes were linear, organized, and rational. Intellectual abilities were estimated within the average range. Attention/concentration was WNL while, insight, judgment, and impulse control were good. Diagnosis: Diagnosis: 304.00 F11.20 Opioid Use Disorder, severe (Prescribed for 20 years) Post Traumatic Stress Disorder, per hx Medication recommendations as per psychiatric provider, Dr. Andrade are as follows: Discontinue Seroquell Start Clonidine 0.1mg QHS Start Vistaril 50mg Q8 PRN Risperidone 0.25mg twice daily Impression/Plan: Patient is recommended to remain under IVC for risk of harm to self or others aeb patient has made numerous suicidal statements and gestures with increased frequency over the last month and has threatened to "punch, kill, and smash his daughter's face in". Patient is a 58 yo male with chronic pain from his knees and spine who has been prescribed opioids for the last 20 years and who has untreated PTSD with nightmares causing an inability to sleep. Patient as well has situational stressors at this time due to financial constraints and needing to re-establish his medical providers as he has just moved here from [place]. Patient has been withdrawing from opiates. Consulted Dr. Jim in the care and treatment of this patient and ED physician who is in agreement with disposition and recommendation.
[2018-12-07] MEDS ORDERED: CLONIDINE HCL 0.1 MG TABLET PO SCH (22:00)
[2018-12-08] MEDS: RISPERIDONE 0.25 MG TABLET PO SCH (09:42)
--- NOTE | 2018-12-08 10:03 | ER Document Report ---
Doctor's Note Notes: 12/08/18 10:02 Rounds: Chart reviewed and patient interviewed. Patient being evaluated for chronic pain, PTSD, and suicidal ideation. Patient's vital signs are all than normal. His lab studies have been essentially normal. Says he is feeling better today. Patient appears to be medically stable for transfer or discharge. Kody Flores MD
--- NOTE | 2018-12-08 10:23 | PSYCHOLOGICAL NOTE ---
Psych Note - Psych Note Date seen by psych provider: 12/08/18 Time seen by psych provider: 08:00 Psych Note: Reason for consult:SI, HI, withdrawal Contact Permissions: Patient is a 58 yo male with chronic pain from his knees and spine who has been prescribed opioids for the last 20 years and who has untreated PTSD with nightmares causing an inability to sleep. Check in with patient today who reports "I'm fantastic" explaining that "I haven't slept like that for a really long while/I feel like I can get up and something/this has helped a lot/I'm going to keep it going". Patient denies SI and HI and has talked with his who reportedly has been saving the last of the gas in order to pick him up from the hospital. He reports they are doing "allright" and there's no tension in the home at this time. Patient is alert and oriented x 4. Mood is "fantastic" with congruent tearful affect. Patient denies SI, HI, and AV/H, does not appear to be responding to internal stimuli, and no delusions were noted. Conversational speech was WNL for rate, tone, and prosody. Eye contact was well maintained. Thought processes were linear, organized, and rational. Intellectual abilities were estimated within the average range. Attention/concentration was WNL while, insight, judgment, and impulse control were good. Diagnosis: 304.00 F11.20 Opioid Use Disorder, severe (Prescribed for 20 years) Post Traumatic Stress Disorder, per hx Medication recommendations as per psychiatric provider, Dr. Andrade are as follows: Discontinue Seroquell Start Clonidine 0.1mg QHS Start Vistaril 50mg Q8 PRN Risperidone 0.25mg twice daily Impression/Plan: Patient is psychiatrically clear from acute psychiatric services and recommended to rescind IVC due to risk of harm to self or others aeb Patient denies SI, HI, and AV/H, does not appear to be responding to internal stimuli, and no delusions were noted. Patient is a 58 yo male with chronic pain from his knees and spine who has been prescribed opioids for the last 20 years and who has untreated PTSD with nightmares causing an inability to sleep. Patient was started on medication for former and reported benefit. Plan is to discharge to home/self- care with follow up S/A and pain management. Patient has already initiated services with local pain management who is awaiting his medical records from [place] to commence treatment. Patient verbalizes interest in suboxone "The opiates are ruining my life". Behavioral Health provided psychoeducation about S/A treatment options and provided patient with list of providers to include [facility]. Due to financial limitations, patient will schedule first appointment when transportation funds are available. Consulted Dr. Jim in the care and treatment of this patient and ED physician who is in agreement with disposition and recommendation.
[2018-12-08 10:47] VITALS: BP 147/81
== END 2018-12-08 10:46 | disposition home or self-care (01) ==
LOC: ER 16:23
DX: R45.851 Suicidal ideations (principal); F11.23 Opioid dependence with withdrawal; F43.10 Post-traumatic stress disorder, unspecified; E78.00 Pure hypercholesterolemia, unspecified; I10 Essential (primary) hypertension; F17.200 Nicotine dependence, unspecified, uncomplicated; Z88.6 Allergy status to analgesic agent; Z86.718 Personal history of other venous thrombosis and embolism; Z88.3 Allergy status to other anti-infective agents; Z86.73 Personal history of transient ischemic attack (TIA), and cerebral infarction without residual deficits; Z90.49 Acquired absence of other specified parts of digestive tract; Z96.651 Presence of right artificial knee joint
CPT/HCPCS: 93005; 99285; 36415; 80307 ×4; 85025; 80053; 81001; 93010; A9270 ×5; J0571; J3490

== ENCOUNTER 2018-12-26 01:10 | Emergency (ER) | payer MEDICARE ==
[2018-12-26] MEDS ORDERED: HALOPERIDOL LACTATE INJ 5 MG/1 ML VIAL IM ONE (02:07)
--- NOTE | 2018-12-26 02:51 | ER Document Report ---
Addendum entered and electronically signed by OSVALDO SYED MD 12/26/18 14:07: Discharge - Discharge Clinical Impression: Opiate abuse, continuous, Suicidal ideation, PTSD (post-traumatic stress disorder) Chronic pain Qualifiers: Chronic pain type: other chronic pain Qualified Code(s): G89.29 - Other chronic pain Condition: Stable Disposition: HOME, SELF-CARE Additional Instructions: You have been evaluated both medical and behavioral health teams have been deemed appropriate for discharge. You are highly encouraged to fill your prescription he received on 12/08/2018. You are also encouraged to follow-up with outpatient mental health services. You have provided a resource list of area providers including mobile crisis contact information. DEPRESSION: Your evaluation reveals that you have mental depression. While symptoms may be vague, they often include disturbance of sleep, fatigue, loss of appetite, and general loss of interest in life. While depression may be a side effect of drugs, or a reaction to a major change in your life, many cases have no known cause. If depression is acute, and related to a major loss in your life, you can expect it to clear completely with time. If you have been depressed a long time, are prone to repeated bouts of depression or low mood, or have been thinking of suicide, get help. Depression can be treated with anti-depressant medication and counselling. Long-term depression will often take a few weeks to clear, even with appropriate medication. Follow-up care is important. SUICIDAL IDEATION: Suicidal ideation is a common medical term for thoughts about suicide, which may be as detailed as a formulated plan, without the suicidal act itself. Although most people who undergo suicidal ideation do not commit suicide, some go on to make suicide attempts. The range of suicidal ideation varies greatly from fleeting to detailed planning, role playing, and unsuccessful attempts. While thoughts about suicide are common, most people do not carry out serious actions to commit suicide. Based upon your evaluation and discussion with you, we do not believe you are currently at risk to act upon your thoughts of suicide. You have agreed to return to the Emergency Department, at any time, if you feel inclined to act upon your suicidal thoughts. FOLLOW-UP CARE: If you have been referred to a physician for follow-up care, call the physicians office for an appointment as you were instructed or within the next two days. If you experience worsening or a significant change in your symptoms, notify the physician immediately or return to the Emergency Department at any time for re-evaluation. Referrals: [facility] [Outside] - Follow up in 3-5 days [facility] [Outside] - Follow up as needed Addendum entered and electronically signed by HARRIETT GOLDSTEIN LCSWA 12/26/18 14:04: Discharge - Discharge Clinical Impression: Opiate abuse, continuous, Suicidal ideation, PTSD (post-traumatic stress disorder) Chronic pain Qualifiers: Chronic pain type: other chronic pain Qualified Code(s): G89.29 - Other chronic pain Condition: Stable Disposition: HOME, SELF-CARE Additional Instructions: You have been evaluated both medical and behavioral health teams have been deemed appropriate for discharge. You are highly encouraged to fill your prescription he received on 12/08/2018. You are also encouraged to follow-up with outpatient mental health services. You have provided a resource list of area providers including mobile crisis contact information. DEPRESSION: Your evaluation reveals that you have mental depression. While symptoms may be vague, they often include disturbance of sleep, fatigue, loss of appetite, and general loss of interest in life. While depression may be a side effect of drugs, or a reaction to a major change in your life, many cases have no known cause. If depression is acute, and related to a major loss in your life, you can expect it to clear completely with time. If you have been depressed a long time, are prone to repeated bouts of depression or low mood, or have been thinking of suicide, get help. Depression can be treated with anti-depressant medication and counselling. Long-term depression will often take a few weeks to clear, even with appropriate medication. Follow-up care is important. SUICIDAL IDEATION: Suicidal ideation is a common medical term for thoughts about suicide, which may be as detailed as a formulated plan, without the suicidal act itself. Although most people who undergo suicidal ideation do not commit suicide, some go on to make suicide attempts. The range of suicidal ideation varies greatly from fleeting to detailed planning, role playing, and unsuccessful attempts. While thoughts about suicide are common, most people do not carry out serious actions to commit suicide. Based upon your evaluation and discussion with you, we do not believe you are currently at risk to act upon your thoughts of suicide. You have agreed to return to the Emergency Department, at any time, if you feel inclined to act upon your suicidal thoughts. FOLLOW-UP CARE: If you have been referred to a physician for follow-up care, call the physicians office for an appointment as you were instructed or within the next two days. If you experience worsening or a significant change in your symptoms, notify the physician immediately or return to the Emergency Department at any time for re-evaluation. Referrals: [facility] [Outside] - Follow up as needed [facility] [Outside] - Follow up in 3-5 days Original Note: ED General - General Chief Complaint: Psych Problem Stated Complaint: PSYCH Time Seen by Provider: 12/26/18 01:13 Cannot obtain history due to: Uncooperative Notes: Patient is a 58-year-old male with opiate dependence, history of narcotic withdrawal, alcohol abuse, presents by EMS after repeatedly threatening suicide to his family members and making attempts at self-harm. History is very limited for me as the patient is aggressive, combative, arguing with security. My initial examination is secondarily very limited secondary to safety concerns. 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 States that he has been in pain continuously, and pain all day, that "everything was fine when I had narcotics". TRAVEL OUTSIDE OF THE [place] IN LAST 30 DAYS: No - Related Data Allergies/Adverse Reactions: erythromycin base Allergy (Verified 12/08/18 08:51) hydromorphone [From Dilaudid] Adverse Reaction (Verified 12/08/18 08:51) palpations ketorolac [From Toradol] Adverse Reaction (Verified 12/08/18 08:51) Past Medical History - General Information source: Patient - Social History Smoking Status: Current Every Day Smoker Chew tobacco use (# tins/day): No Frequency of alcohol use: tonight Drug Abuse: None, Prescription drugs Lives with: Family Family History: Reviewed & Not Pertinent Patient has suicidal ideation: Yes Patient has homicidal ideation: No - Past Medical History Cardiac Medical History: Reports: Hx DVT, Hx Hypercholesterolemia, Hx Hypertension Neurological Medical History: Reports: Hx Cerebrovascular Accident - TIA Renal/ Medical History: Reports: Hx Kidney Stones. Denies: Hx Peritoneal Dialysis GI Medical History: Reports: Hx Hepatitis - History of hepatitis C. He has had treatment. Musculoskeletal Medical History: Reports Hx Arthritis Infectious Medical History: Reports: Hx Hepatitis - History of hepatitis C. He has had treatment. Past Surgical History: Reports: Hx Abdominal Surgery - hernia, Hx Chol ecystectomy, Hx Orthopedic Surgery - Has had cervical spine surgery, r Knee Replacement, Hx Vascular Surgery - removal of DVTs in legs, IVC filter placed - Immunizations Hx Diphtheria, Pertussis, Tetanus Vaccination: No Review of Systems - Review of Systems -: Yes ROS unobtainable due to patient's medical condition Physical Exam - Vital signs Interpretation: Normal Notes: PHYSICAL EXAMINATION: Limited secondary to safety concerns GENERAL: Well-appearing, intoxicated and agitated HEAD: Atraumatic, normocephalic. EYES: sclera anicteric, conjunctiva are normal. ENT: Moist mucous membranes. NECK: Normal range of motion LUNGS: Normal work of breathing EXTREMITIES: No cyanosis, no apparent limited range of motion NEUROLOGICAL: No focal neurological deficits. Moves all extremities sponta neously PSYCH: Agitated, difficulty to redirect SKIN: Warm, Dry, normal turgor, no rashes or lesions noted. Course - Re-evaluation Re-evalutation: 12/26/18 02:44 Presentation of a patient very well-known to me. Presents complaining that he is suicidal because he does not have narcotic pain medications. Similar to a presentation for which I saw him less than 3 weeks ago. The patient was aggressive, hostile, refusing to comply with changing out of his street close or allowing us to proceed with blood work and standard workup. The patient had expressed suicidal ideation, was attempting self-harm at home. EMS was called t o the home for this issue. Patient is intoxicated, and immediate danger to himself and others at this time. He has been placed under involuntary commitment by me. He will be forcibly change out of his clothes if necessary and will be administered 10 mg of intramuscular haloperidol to allow for co mpliance with treatment. 12/26/18 04:39 :, Cooperative. Cleared for evaluation and disposition by [facility]. - Laboratory Result Diagrams: 12/26/18 02:57 12/26/18 02:57 Laboratory results interpreted by me: 12/26/18 12/26/18 12/26/18 02:40 02:57 02:57 MCH 33.6 H RDW 16.0 H Plt Count 42 L Chloride 115 H Carbon Dioxide 19 L Total Bilirubin 1.8 H Direct Bilirubin 0.5 H Albumin 3.4 L Urine Protein 100 H Urine Blood MODERATE H Urine Urobilinogen 4.0 H Salicylates < 1.0 L Acetaminophen < 10 L - EKG Interpretation by Me Additional EKG results interpreted by me: 12/26/18 04:39 Sinus rhythm, [address] elevations or depressions. QTC is 473. Discharge - Discharge Clinical Impression: Opiate abuse, continuous, Suicidal ideation Chronic pain Qualifiers: Chronic pain type: other chronic pain Qualified Code(s): G89.29 - Other chronic pain
[2018-12-26 03:13] LABS: ABSOLUTE EOSINOPHILS # (AUTO) 0.1 10^3/uL (0.0-0.6); ABSOLUTE LYMPHOCYTES (AUTO) 1.5 10^3/uL (0.5-4.7); ABSOLUTE MONOCYTES (AUTO) 0.6 10^3/uL (0.1-1.4); ABSOLUTE NEUT (AUTO) 4.5 10^3/uL (1.7-8.2); BASOPHILS % (AUTO) 0.2 % (0-2); HEMATOCRIT 43.7 % (37.9-51.0); HEMOGLOBIN 15.3 g/dL (13.5-17.0); LYMPHOCYTES % (AUTO) 22.5 % (13-45); MEAN CORPUSCULAR HEMOGLOBIN 33.6 pg (27.0-33.4); MEAN CORPUSCULAR VOLUME 96 fl (80-97); MONOCYTES % (AUTO) 9.4 % (3-13); RED BLOOD COUNT 4.56 10^6/uL (4.35-5.55); SEGMENTED NEUTROPHILS % (AUTO) 66.9 % (42-78); TOTAL CELLS COUNTED % (AUTO) 100 %; WHITE BLOOD COUNT 6.7 10^3/uL (4.0-10.5)
[2018-12-26 03:15] LABS: PLATELET COUNT 42 10^3/uL (150-450)
[2018-12-26 03:16] LABS: APPEARANCE,URINE SLIGHTLY-CLOUDY; BILIRUBIN,URINE NEGATIVE (NEGATIVE); COLOR,URINE AMBER; GLUCOSE, URINE NEGATIVE (NEGATIVE); KETONES,URINE NEGATIVE (NEGATIVE); LEUKOCYTE ESTERASE,URINE NEGATIVE (NEGATIVE); NITRITE,URINE NEGATIVE (NEGATIVE); PROTEIN,URINE 100 mg/dL (NEGATIVE)
[2018-12-26 03:24] LABS: ALANINE AMINOTRANSFERASE 38 U/L (21-72); ALBUMIN 3.4 g/dL (3.5-5.0); ALCOHOL 120 mg/dL (NONE DETECTED); ALKALINE PHOSPHATASE 94 U/L (38-126); ANION GAP 8 (5-19); ASPARTATE AMINO TRANSFERASE 57 U/L (17-59); BILIRUBIN,DIRECT 0.5 mg/dL (0.0-0.4); BILIRUBIN,TOTAL 1.8 mg/dL (0.2-1.3); BLOOD UREA NITROGEN 8 mg/dL (7-20); CALCIUM 9.5 mg/dL (8.4-10.2); CARBON DIOXIDE 19 mmol/L (22-30); CHLORIDE 115 mmol/L (98-107); GLUCOSE 93 mg/dL (75-110); POTASSIUM 4.2 mmol/L (3.6-5.0); SODIUM 141.9 mmol/L (137-145); TOTAL PROTEIN 6.7 g/dL (6.3-8.2)
[2018-12-26 03:25] LABS: ACETAMINOPHEN < 10 ug/mL (10-30); SALICYLATE < 1.0 mg/dL (2.0-20.0)
[2018-12-26 03:27] LABS: URINE AMPHETAMINES SCREEN NEGATIVE; URINE BARBITURATES SCREEN NEGATIVE; URINE BENZODIAZEPINES SCREEN NEGATIVE; URINE COCAINE SCREEN NEGATIVE; URINE MARIJUANA (THC) SCREEN UNCONFIRMED POSITIVE; URINE METHADONE SCREEN NEGATIVE; URINE PHENCYCLIDINE SCREEN NEGATIVE
--- NOTE | 2018-12-26 10:04 | PSYCHOLOGICAL NOTE ---
Psych Note - Psych Note Date seen by psych provider: 12/26/18 Time seen by psych provider: 09:20 Psych Note: Reason for Consult: suicidal ideation, substance abuse Consent Permissions: arphael Stanley, Patient is a 58-year-old male with opiate dependence, history of narcotic withdrawal, alcohol abuse, presents by EMS after repeatedly threatening suicide to his family members and making attempts at self-harm. Patient reports he arrived to [facility] ED via EMS because "I drink...I said and did something stupid." He further disclosed that he had not drank in 29 years but drank last night to "wash my head clean." He was able to further explain that he is having "visions" of people that he could not save. 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 Patient admits that he made suicidal comments and gestures. Patient has superficial cuts across his wrist and confirms he is never done that before. He reports that "this is why I stopped drinking in the first place because it makes me do and say things that are stupid I should have just gone to bed." He denies thoughts of wanting to harm himself or anyone today stating that it was the alcohol and reports that he has no concern about continued drinking because today just reminds him of why he stopped in the first place. Patient reports that he is in pain from knee surgery and neck surgeries. He reports that he had been speaking with mobile crisis however he reports his became angry because that who she uses and she felt that he was using her service which would not allow her to use them anymore. Clinician attempted to contact the patient's , Lizeth; busy signal. Clinician received a correct phone number for patient's . Patient's discloses she will not allow the patient to return home. She states that this is been going on nonstop for 1 week. She states that the patient did not fill the prescriptions he received during previous [facility] visit. She disclosed that the patient reports that he will do all these things and then does not when he gets home. She discloses that last night was the first time he drank. She reports that he held a knife to himself and threatened to kill himself and was trying to cut himself and required the police to take the knife away from him. She reports he need penitentiary treatment so he can get medication and therapy. She became very agitated started to yell and use profanity stating that he needs to go inpatient and if he is sent home she will "shahid the fuck out of you" then hung up on clinician. Clinician spoke with patient. He again denies thoughts of wanting to harm himself or others. He reports that he did not fill his prescription because he did not have the money which he states he explained to his . He discloses that the next paycheck into the family is on the third and he plan to fill it then. He reports that he was paid on the however all of his money went to bills. He discloses frustration that his and daughter smoke marijuana and have been having people come over smoking. He reports that he just stays in his room and out of their way however if he ever says anything that he is the one who is wrong. Patient disclose that he may just moved back to [place] on the when he personally gets paid again. Patient is alert and orientated to person, place, time and circumstance. Mood is euthymic with congruent affect. Patient denies suicidal and homicidal ideation admits to engaging in suicidal comments and gestures while under the influence. Delusions are absent behaviors congruent with an intact reality based presentation i.e. organized and linear thought process. Eye contact is fair. Conversational speech is within normal rate, tone and prosody. Intellectual abilities appear to be within the average range. Attention and concentration are good. Insight, judgment, impulse control are fair. Medication recommendations as per psychiatric provider, Dr. Andrade are as follows: Start Clonidine 0.1mg QHS Start Vistaril 50mg Q8 PRN Risperidone 0.25mg twice daily Diagnosis: 304.00 F11.20 Opioid Use Disorder, severe (Prescribed for 20 years) Post Traumatic Stress Disorder, per history Impression\\plan: Patient is recommended for rescind of IVC and is cleared from acute psychiatric services. Patient no longer meets IVC criteria per [place] GS 122C. Patient denies suicidal and homicidal ideation. Patient openly engages and discusses his suicidal comments and gestures while under the influence. Patient discloses when he drinks he ends up acting inappropriately. Patient is not demonstrating any behaviors indicating he is responding to internal stimuli i.e. good eye contact, organized linear thought process, and normal conversational tone. Patient is encouraged to fill his prescription here previously received during his [facility] visit on 12/08/2018. Patient states that he can fill it on the third. Patient demonstrates forward thinking by disclosing that he wants to move back to [place] possibly on the . Dr. Jim was consulted to care management of this patient; attending physicians in agreement with recommendations and disposition.
[2018-12-26] MEDS ORDERED: OXYCODONE-ACETAMINOPHEN 5-325 MG TABLET PO ONE (10:45)
[2018-12-26] MEDS ORDERED: ATENOLOL 50 MG TABLET PO ONE (10:45)
--- NOTE | 2018-12-26 11:08 | EKG REPORT ---
SEVERITY:- NORMAL ECG - SINUS RHYTHM : Confirmed by: Nneka Gonzalez MD 26-Dec-2018 11:08:19
--- NOTE | 2018-12-26 14:07 | ER Document Report ---
Doctor's Note Notes: 12/26/18 14:07 See Carmelo Ellis psych note on the patient current plan. Patient is stable for discharge home at this time.
[2018-12-26 14:16] VITALS: BP 143/80
== END 2018-12-26 14:21 | disposition home or self-care (01) ==
LOC: ER 01:10
DX: F11.20 Opioid dependence, uncomplicated (principal); G89.29 Other chronic pain; R45.851 Suicidal ideations; F10.129 Alcohol abuse with intoxication, unspecified; F43.10 Post-traumatic stress disorder, unspecified; F17.200 Nicotine dependence, unspecified, uncomplicated; I10 Essential (primary) hypertension; Z88.1 Allergy status to other antibiotic agents
CPT/HCPCS: 93005; 99285; 96372; 36415; 80307 ×4; 85025; 80053; 81001; 93010; A9270 ×2; J1630

== ENCOUNTER 2019-02-04 01:16 | Emergency (ER) | payer MEDICARE ==
[2019-02-04 02:55] LABS: ABSOLUTE EOSINOPHILS # (AUTO) 0.1 10^3/uL (0.0-0.6); ABSOLUTE LYMPHOCYTES (AUTO) 1.2 10^3/uL (0.5-4.7); ABSOLUTE MONOCYTES (AUTO) 0.6 10^3/uL (0.1-1.4); ABSOLUTE NEUT (AUTO) 3.5 10^3/uL (1.7-8.2); BASOPHILS % (AUTO) 0.3 % (0-2); EOSINOPHILS % (AUTO) 2.1 % (0-6); HEMATOCRIT 37.7 % (37.9-51.0); HEMOGLOBIN 12.9 g/dL (13.5-17.0); LYMPHOCYTES % (AUTO) 21.8 % (13-45); MEAN CORPUSCULAR HEMOGLOBIN 32.8 pg (27.0-33.4); MEAN CORPUSCULAR HGB CONC 34.2 g/dL (32.0-36.0); MEAN CORPUSCULAR VOLUME 96 fl (80-97); MONOCYTES % (AUTO) 11.6 % (3-13); RED BLOOD COUNT 3.93 10^6/uL (4.35-5.55); RED CELL DISTRIBUTION WIDTH 14.6 % (11.5-14.0); SEGMENTED NEUTROPHILS % (AUTO) 64.2 % (42-78); TOTAL CELLS COUNTED % (AUTO) 100 %; WHITE BLOOD COUNT 5.4 10^3/uL (4.0-10.5)
[2019-02-04] MEDS ORDERED: NORMAL SALINE 1000 ML 1,000 ML IV ONE (03:02)
--- NOTE | 2019-02-04 03:03 | ER Document Report ---
ED GI/ - General TRAVEL OUTSIDE OF THE [place]. IN LAST 30 DAYS: No <DELANO PAEZ - Last Filed: 02/04/19 08:56> <SURJIT SALCEDO - Last Filed: 02/04/19 11:38> - General Chief Complaint: Possible Kidney Stone Stated Complaint: LEFT FLANK PAIN Notes: Patient is a 58-year-old male that comes emergency department for chief complaint of left flank pain, nausea, hematuria. He comes by EMS, was given 30 mg of Toradol, Zofran, 100 mcg of fentanyl. He states that he was seen at [facility], had a CAT scan diagnosing him with a passing kidney stone, he states that he was told he would not be able to see urology for [address] Miller, he states the pain tonight was worse so he came in. He denies fever/chills. In addition to kidney stones he has a history of cirrhosis of the liver and an IVC filter. He has had a cholecystectomy. (DELANO PAEZ) - Related Data Allergies/Adverse Reactions: erythromycin base Allergy (Verified 12/08/18 08:51) hydromorphone [From Dilaudid] Adverse Reaction (Verified 12/08/18 08:51) palpations ketorolac [From Toradol] Adverse Reaction (Verified 12/08/18 08:51) Past Medical History - General Information source: Patient - Social History Smoking Status: Current Every Day Smoker Frequency of alcohol use: None Drug Abuse: None Lives with: Spouse/Significant other Family History: Reviewed & Not Pertinent Patient has suicidal ideation: No Patient has homicidal ideation: No - Past Medical History Cardiac Medical History: Reports: Hx DVT, Hx Hypercholesterolemia, Hx Hypertension Neurological Medical History: Reports: Hx Cerebrovascular Accident - TIA Renal/ Medical History: Reports: Hx Kidney Stones. Denies: Hx Peritoneal Dialysis GI Medical History: Reports: Hx Hepatitis - History of hepatitis C. He has had treatment. Musculoskeletal Medical History: Reports Hx Arthritis Infectious Medical History: Reports: Hx Hepatitis - History of hepatitis C. He has had treatment. Past Surgical History: Reports: Hx Abdominal Surgery - hernia, Hx Genevieve cystectomy, Hx Orthopedic Surgery - Has had cervical spine surgery, r Knee Replacement, Hx Vascular Surgery - removal of DVTs in legs, IVC filter placed - Immunizations Hx Diphtheria, Pertussis, Tetanus Vaccination: No <DELANO PAEZ - Last Filed: 02/04/19 08:56> Review of Systems - Review of Systems Constitutional: No symptoms reported EENT: No symptoms reported Cardiovascular: No symptoms reported Respiratory: No symptoms reported Gastrointestinal: See HPI Genitourinary: See HPI Male Genitourinary: No symptoms reported Musculoskeletal: No symptoms reported Skin: No symptoms reported Hematologic/Lymphatic: No symptoms reported Neurological/Psychological: No symptoms reported <ELAINE PAEZAN - Last Filed: 02/04/19 08:56> Physical Exam <DELANO PAEZ - Last Filed: 02/04/19 08:56> - Vital signs Vitals: Temp Pulse Resp BP Pulse Ox 97.9 F 77 18 175/85 H 98 02/04/19 01:24 02/04/19 01:24 02/04/19 01:24 02/04/19 01:24 02/04/19 01:24 - Notes Notes: GENERAL: Alert, cooperative, uncomfortable in appearance but nontoxic HEAD: Normocephalic, atraumatic. EYES: Pupils equal, round, and reactive to light. Extraocular movements intact. ENT: Oral mucosa moist, tongue midline. Oropharynx unremarkable. Airway patent. NECK: Full range of motion. Supple. Trachea midline. LUNGS: Clear to auscultation bilaterally, no wheezes, rales, or rhonchi. No resp iratory distress. HEART: Regular rate and rhythm. No murmur ABDOMEN: There is tenderness in the upper and lower abdomen with wincing in all locations but there is no specific guarding. No distention. GENITOURINARY: Deferred EXTREMITIES: Moves all 4 extremities spontaneously. No edema, normal radial and dorsalis pedis pulses bilaterally. No cyanosis. BACK: no cervical, thoracic, lumbar midline tenderness. No saddle anesthesia, normal distal neurovascular exam. Generalized tenderness over the mid back without overt or severe CVA tenderness. NEUROLOGICAL: Alert and oriented x3. Normal speech. SKIN: Warm, dry, normal turgor. No rashes or lesions noted. (DELANO PAEZ) Course - Laboratory Result Diagrams: 02/04/19 02:35 02/04/19 02:35 <DELANO PAEZ - Last Filed: 02/04/19 08:56> - Laboratory Result Diagrams: 02/04/19 02:35 02/04/19 02:35 <SURJIT SALCEDO - Last Filed: 02/04/19 11:38> - Re-evaluation Re-evalutation: Patient is uncomfortable but not toxic in appearance. Unremarkable vital signs. Pain is in the upper and lower abdomen and generally over the back without overt or severe CVA tenderness. CBC is unremarkable except for thrombocytopenia which is chronic, this is his baseline. PT and PTT will be checked. Chemistry is unremarkable. Lipase is elevated at 1200 consistent with pancreatitis. Initially ultrasound was performed because patient states that he has had a lot of CAT scans, this shows some hydronephrosis. Because of bilateral pain, elevated lipase, CAT scan was performed. This shows bilateral ureterolithiasis with 7 mm ureteral on the right and 2 mm ureteral stone on the left. Urine was obtained, this was a clean sample, this shows infection. Rocephin started. Patient has been kept n.p.o. Patient will require transfer because we do not have urology and he has bilateral ureterolithiasis with urinary tract infection in addition to the pancreatitis. No evidence of pancreatitis on CAT scan. Patient has had a cholecystectomy already. I discussed with Dr. Hernandez. Discussed the patient, he is hoping for either [place] or [place], he was supposed to follow-up with Dr. Miller ([facility] Urologist), but he has not seen them yet. 02/04/19 06:50 Called and spoke with carving machine operator at [facility], they do not have urology web content executive today. 02/04/19 06:55 Called and spoke with [facility] transfer center, pending callback. 02/04/19 07:45 Called and spoke with [facility] again because I am still pending a [facility]. Discussed with patient again, he is in agreement with hopeful transfer to [facility], he did request pain medication again. No significant change in vital signs. 02/04/19 08:38 Called [facility] again, transfer center is telling me they have spoken to Dr. Jorgensen, urologist, he is going to give me a call back. (DELANO PAEZ) 02/04/19 09:40 Case discussed with urology at [facility]. States that based on the lab results that I am giving him, the fact that the patient is not currently septic, is afebrile with a normal white count that the patient can be managed as an outpatient regarding the bilateral obstructive kidney stones with possible UTI. Patient continues to have pain requiring narcotic medications to keep it under control. I have placed a call to [facility] hospitalist to see if the patient can be admitted under the hospitalist service due to his acute pancreatitis. I believe that the patient should be admitted there as we do not have urology coverage here in case he gets worse due to his obstructive kidney stones with possible UTI. Currently awaiting return phone call from the transfer center. 02/04/19 11:34 Went into discussed the case with the patient. I explained that he does not require admission related to his kidney stones. States that he is actually feeling better at this time and is comfortable going home and following up with urology as an outpatient. Patient has been tolerating p.o. fluids without any difficulty. Lipase is minimally elevated at 1200. Was able to discuss the case with 1 of the hospitalist at [facility] who states that if the patient is comfortable going home and is tolerating p.o. fluids that it is reasonable to let him go home and follow-up as an outpatient. Patient has a prescription for Flomax and Zofran at the house. I will discharge him home with a prescription for Percocet. He will be given instructions to follow-up with urology at the next available appointment as an outpatient. To return the emergency department immediately if develops worsening pain, fever, persistent vomiting, inability to urinate, or has any further concerns. The patient's emergency department workup and current diagnosis were explained to the patient and or family. Follow-up instructions were provided. Medications if prescribed were discussed. Instructions for when to return to the emergency department including specific worrisome symptoms were discussed with the patient and/or family. (SURJIT SALCEDO) - Vital Signs Vital signs: Temp Pulse Resp BP Pulse Ox 97.7 F 78 16 152/75 H 94 02/04/19 08:41 02/04/19 06:21 02/04/19 10:01 02/04/19 10:01 02/04/19 10:01 - Laboratory Laboratory results interpreted by me: 02/04/19 02/04/19 02/04/19 02:35 02:35 02:35 RBC 3.93 L Hgb 12.9 L Hct 37.7 L RDW 14.6 H Plt Count 40 L PT 16.9 H Chloride 111 H Direct Bilirubin 0.5 H Total Protein 5.5 L Albumin 2.9 L Lipase 1239.8 H Urine Protein Urine Blood Urine Urobilinogen Ur Leukocyte Esterase 02/04/19 03:25 RBC Hgb Hct RDW Plt Count PT Chloride Direct Bilirubin Total Protein Albumin Lipase Urine Protein 100 H Urine Blood LARGE H Urine Urobilinogen 4.0 H Ur Leukocyte Esterase LARGE H Discharge <DELANO PAEZ - Last Filed: 02/04/19 08:56> <SURJIT SALCEDO - Last Filed: 02/04/19 11:38> - Discharge Clinical Impression: Ureterolithiasis, Flank pain, Thrombocytopenia Urinary tract infection Qualifiers: Urinary tract infection type: site unspecified Hematuria presence: with hematuria Qualified Code(s): N39.0 - Urinary tract infection, site not specified Pancreatitis Qualifiers: Chronicity: acute Pancreatitis type: unspecified pancreatitis type Acute pa ncreatitis complication: unspecified Qualified Code(s): K85.90 - Acute pancreatitis without necrosis or infection, unspecified Abdominal pain Qualifiers: Abdominal location: generalized Qualified Code(s): R10.84 - Generalized abdominal pain Condition: Stable Disposition: HOME, SELF-CARE Instructions: Urinary Tract Infection ([facility]), Kidney Stone ([facility]), Pancreatitis ([facility]) Additional Instructions: Take medications as prescribed. Drink plenty of fluids. I would start with clear liquids and progress her diet slowly due to your pancreatitis. Follow-up with urology at the next available appointment. Follow-up sooner for worsening pain, fever, inability urinate, persistent vomiting, or for any further concerns. Prescriptions: Oxycodone HCl/Acetaminophen [Percocet 5-325 mg Tablet] 1 - 2 tab PO Q4H PRN #25 tablet PRN Reason: Forms: Elevated Blood Pressure, Smoking Cessation Education Referrals: RUSS JORGENSEN MD [NO LOCAL MD] - Follow up as needed [facility] [Provider Group] - Follow up as needed
[2019-02-04 03:09] LABS: ALANINE AMINOTRANSFERASE 43 U/L (21-72); ALBUMIN 2.9 g/dL (3.5-5.0); ALKALINE PHOSPHATASE 105 U/L (38-126); ANION GAP 5 (5-19); ASPARTATE AMINO TRANSFERASE 39 U/L (17-59); BILIRUBIN,DIRECT 0.5 mg/dL (0.0-0.4); BILIRUBIN,TOTAL 1.2 mg/dL (0.2-1.3); BLOOD UREA NITROGEN 15 mg/dL (7-20); CALCIUM 8.8 mg/dL (8.4-10.2); CARBON DIOXIDE 26 mmol/L (22-30); CHLORIDE 111 mmol/L (98-107); GLUCOSE 93 mg/dL (75-110); LIPASE 1239.8 U/L (23-300); POTASSIUM 3.8 mmol/L (3.6-5.0); SODIUM 142.4 mmol/L (137-145); TOTAL PROTEIN 5.5 g/dL (6.3-8.2)
[2019-02-04 03:13] LABS: PLATELET COUNT 40 10^3/uL (150-450)
--- NOTE | 2019-02-04 04:25 | RADIOLOGY REPORT (SQ) ---
CLINICAL HISTORY: left flank pain, hematuria COMPARISON: None. TECHNIQUE: US RETROPERITONEUM LIMITED on 02/04/2019 3:01 AM CDT FINDINGS: Right kidney measures 12.9 cm. There is mild hydronephrosis. Left kidney measures 13.1 cm without hydronephrosis. There is a questionable midpole 1.2 cm calculus. Urinary bladder is unremarkable. IMPRESSION: Mild right hydronephrosis. Left nephrolithiasis without hydronephrosis.
[2019-02-04] MEDS ORDERED: MORPHINE SULFATE 10 MG/ML INJ IV ONE ×2 (04:28→08:04)
--- NOTE | 2019-02-04 06:12 | RADIOLOGY REPORT (SQ) ---
CLINICAL HISTORY: passing kidney stones? Elevated lipase COMPARISON: November 14, 2018. TECHNIQUE: CT ABDOMEN PELVIS WITHOUT IV CONTRAST on 02/04/2019 4:28 AM CDT This exam was performed according to our departmental dose-optimization program, which includes automated exposure control, adjustment of the mA and/or kV according to patient size and/or use of iterative reconstruction technique. FINDINGS: Lower lungs are clear. Abdomen: Liver is cirrhotic in morphology. There is no biliary dilatation. Cholecystectomy was performed. Spleen is enlarged measuring at least 16.5 cm. Pancreas is unremarkable. There are multiple vascular collaterals in the left upper quadrant. There a punctate lower pole right renal calculus. There is mild right hydronephrosis secondary to a 7 mm proximal right ureteral calculus. There is mild left hydronephrosis secondary to a 2 mm proximal left ureteral calculus. Abdominal aorta is normal in course and caliber without aneurysm. There is no free air. There is no retroperitoneal adenopathy. Pelvis: There is no bowel obstruction. Urinary bladder is unremarkable. There is no free fluid. There are postoperative changes of right inguinal hernia repair. Appendix is not clearly seen. Skeleton: There are no acute osseous findings. No suspicious bony lesions. IMPRESSION: Bilateral nephrolithiasis secondary to obstructing bilateral proximal ureteral calculi as described.
[2019-02-04 06:33] LABS: APPEARANCE,URINE CLOUDY; BILIRUBIN,URINE NEGATIVE (NEGATIVE); COLOR,URINE AMBER; GLUCOSE, URINE NEGATIVE (NEGATIVE); KETONES,URINE NEGATIVE (NEGATIVE); LEUKOCYTE ESTERASE,URINE LARGE (NEGATIVE); NITRITE,URINE NEGATIVE (NEGATIVE); PROTEIN,URINE 100 mg/dL (NEGATIVE); URINE SPECIFIC GRAVITY 1.015
[2019-02-04] MEDS ORDERED: CEFTRIAXONE 1 GM/D5W RTU 1 GM/50 ML RTUPB IV ONE (06:42)
[2019-02-04 07:24] LABS: INTERNATIONAL RATION (INR) 1.31; PARTIAL THROMBOPLASTIN TIME 34.7 SEC (23.5-35.8); PROTHROMBIN TIME 16.9 SEC (11.4-15.4)
[2019-02-04] MEDS ORDERED: NORMAL SALINE 1000 ML 1,000 ML IV PRN (07:59)
[2019-02-04] MEDS ORDERED: ATENOLOL 50 MG TABLET PO ONE (10:45)
[2019-02-04 11:41] VITALS: BP 161/95
== END 2019-02-04 11:47 | disposition home or self-care (01) ==
LOC: ER 01:16
DX: N20.1 Calculus of ureter (principal); K85.90 Acute pancreatitis without necrosis or infection, unspecified; N39.0 Urinary tract infection, site not specified; D69.6 Thrombocytopenia, unspecified; R10.84 Generalized abdominal pain; R31.9 Hematuria, unspecified; R11.0 Nausea; F17.200 Nicotine dependence, unspecified, uncomplicated; E78.00 Pure hypercholesterolemia, unspecified; I10 Essential (primary) hypertension; Z88.3 Allergy status to other anti-infective agents; Z88.6 Allergy status to analgesic agent; Z86.718 Personal history of other venous thrombosis and embolism; Z86.73 Personal history of transient ischemic attack (TIA), and cerebral infarction without residual deficits; Z87.442 Personal history of urinary calculi; Z90.49 Acquired absence of other specified parts of digestive tract; Z96.651 Presence of right artificial knee joint
CPT/HCPCS: 96376; 99284; 96361; 96375; 96365; 86900; 86901; 36415; 87086; 86850; 83690; 85025; 85610; 85730; 87088; 80053; 81001; 87186; 76775; 74176; A9270; J2270; J7030; J0696

== ENCOUNTER 2019-02-07 22:02 | Emergency (ER) | payer MEDICARE ==
[2019-02-07 23:22] LABS: APPEARANCE,URINE CLEAR; BILIRUBIN,URINE NEGATIVE (NEGATIVE); COLOR,URINE YELLOW; GLUCOSE, URINE NEGATIVE (NEGATIVE); KETONES,URINE NEGATIVE (NEGATIVE); LEUKOCYTE ESTERASE,URINE NEGATIVE (NEGATIVE); NITRITE,URINE NEGATIVE (NEGATIVE); PROTEIN,URINE NEGATIVE (NEGATIVE); URINE SPECIFIC GRAVITY 1.019
[2019-02-07 23:23] LABS: ABSOLUTE EOSINOPHILS # (AUTO) 0.1 10^3/uL (0.0-0.6); ABSOLUTE MONOCYTES (AUTO) 0.5 10^3/uL (0.1-1.4); ABSOLUTE NEUT (AUTO) 2.7 10^3/uL (1.7-8.2); BASOPHILS % (AUTO) 0.2 % (0-2); EOSINOPHILS % (AUTO) 1.7 % (0-6); HEMATOCRIT 37.1 % (37.9-51.0); HEMOGLOBIN 12.6 g/dL (13.5-17.0); LYMPHOCYTES % (AUTO) 22.5 % (13-45); MEAN CORPUSCULAR HEMOGLOBIN 32.6 pg (27.0-33.4); MEAN CORPUSCULAR VOLUME 96 fl (80-97); MONOCYTES % (AUTO) 11.8 % (3-13); RED BLOOD COUNT 3.88 10^6/uL (4.35-5.55); RED CELL DISTRIBUTION WIDTH 14.7 % (11.5-14.0); SEGMENTED NEUTROPHILS % (AUTO) 63.8 % (42-78); TOTAL CELLS COUNTED % (AUTO) 100 %; WHITE BLOOD COUNT 4.3 10^3/uL (4.0-10.5)
[2019-02-07 23:33] LABS: ALANINE AMINOTRANSFERASE 42 U/L (21-72); ALBUMIN 2.9 g/dL (3.5-5.0); ALKALINE PHOSPHATASE 96 U/L (38-126); ANION GAP 5 (5-19); ASPARTATE AMINO TRANSFERASE 43 U/L (17-59); BILIRUBIN,DIRECT 0.5 mg/dL (0.0-0.4); BILIRUBIN,TOTAL 1.6 mg/dL (0.2-1.3); BLOOD UREA NITROGEN 18 mg/dL (7-20); CARBON DIOXIDE 26 mmol/L (22-30); CHLORIDE 110 mmol/L (98-107); GLUCOSE 76 mg/dL (75-110); LIPASE 270.4 U/L (23-300); POTASSIUM 4.4 mmol/L (3.6-5.0); SODIUM 140.5 mmol/L (137-145); TOTAL PROTEIN 5.7 g/dL (6.3-8.2)
[2019-02-07 23:43] LABS: PLATELET COUNT 34 10^3/uL (150-450)
[2019-02-08] MEDS ORDERED: OXYCODONE HCL IR 5 MG TABLET PO ONE (00:23)
[2019-02-08] MEDS ORDERED: ONDANSETRON 4 MG TAB.RAPDIS PO ONE (00:23)
--- NOTE | 2019-02-08 00:25 | ER Document Report ---
ED Medical Screen (RME) - General Chief Complaint: Possible Kidney Stone Stated Complaint: KIDNEY STONES Time Seen by Provider: 02/08/19 00:23 Notes: 58-year-old male with bilateral ureterolithiasis diagnosed on CAT scan recently here, chief complaint of pain in both sides of his back radiating around to the front. He felt warm earlier but he is not sure if he has had a fever. He is not vomiting. He does have a history of cured hepatitis C, diagnosis of liver cirrhosis. TRAVEL OUTSIDE OF THE [place] IN LAST 30 DAYS: No - Related Data Allergies/Adverse Reactions: erythromycin base Allergy (Verified 12/08/18 08:51) hydromorphone [From Dilaudid] Adverse Reaction (Verified 12/08/18 08:51) palpations ketorolac [From Toradol] Adverse Reaction (Verified 12/08/18 08:51) Past Medical History - Past Medical History Cardiac Medical History: Reports: Hx DVT, Hx Hypercholesterolemia, Hx Hypertension Neurological Medical History: Reports: Hx Cerebrovascular Accident - TIA Renal/ Medical History: Reports: Hx Kidney Stones. Denies: Hx Peritoneal Dial ysis GI Medical History: Reports: Hx Hepatitis - History of hepatitis C. He has had treatment. Musculoskeltal Medical History: Reports Hx Arthritis Infectious Medical History: Reports: Hx Hepatitis - History of hepatitis C. He has had treatment. Past Surgical History: Reports: Hx Abdominal Surgery - hernia, Hx Cholecystectomy, Hx Orthopedic Surgery - Has had cervical spine surgery, r Knee Replacement, Hx Vascular Surgery - removal of DVTs in legs, IVC filter placed - Immunizations Hx Diphtheria, Pertussis, Tetanus Vaccination: No Physical Exam - Vital signs Vitals: Temp Pulse Resp BP Pulse Ox 98.6 F 68 16 163/87 H 97 02/07/19 22:16 02/07/19 22:16 02/07/19 22:16 02/07/19 22:16 02/07/19 22:16 - General General appearance: Other - Patient appears mildly uncomfortable but does not appear to be in severe pain - Abdominal Tenderness: Tender - Generalized abdominal tenderness Course - Re-evaluation Re-evalutation: I have greeted and performed a rapid initial assessment of this patient. A comprehensive ED assessment and evaluation of the patient, analysis of test results and completion of the medical decision making process will be conducted by additional ED providers. - Vital Signs Vital signs: Temp Pulse Resp BP Pulse Ox 98.6 F 68 16 163/87 H 97 02/07/19 22:16 02/07/19 22:16 02/07/19 22:16 02/07/19 22:16 02/07/19 22:16 - Laboratory Result Diagrams: 02/07/19 22:50 02/07/19 22:50 Laboratory results interpreted by me: 02/07/19 02/07/19 02/07/19 22:50 22:50 22:50 RBC 3.88 L Hgb 12.6 L Hct 37.1 L RDW 14.7 H Plt Count 34 L Chloride 110 H Creatinine 1.36 H Est GFR (Non-Af Amer) 54 L Total Bilirubin 1.6 H Direct Bilirubin 0.5 H Total Protein 5.7 L Albumin 2.9 L Urine Urobilinogen 4.0 H
--- NOTE | 2019-02-08 03:12 | RADIOLOGY REPORT (SQ) ---
EXAM DESCRIPTION: CT ABDOMEN PELVIS WITHOUT IV CONTRAST COMPLETED DATE/TME: 02/08/2019 02:06 CLINICAL HISTORY: 58 years, Male, ongoing bilateral flank pain COMPARISON: 02/04/2019 CT TECHNIQUE: 397 Images stored on PACS. All CT scanners at this facility use dose modulation, iterative reconstruction, and/or weight based dosing when appropriate to reduce radiation dose to as low as reasonably achievable (ALARA). [facility]: Dose Right [facility]: CareDose [facility]: Dose Right [facility]: Teradose 4D [facility]: [employer] LIMITATIONS: None. FINDINGS: Lung bases are unremarkable. Osseous structures grossly intact. Fatty infiltrative change to the liver. Status post cholecystectomy. Splenomegaly, with the spleen measuring 17 cm. Extensive varices in the upper abdomen. Limited evaluation of the adrenal glands and pancreas are unremarkable. Moderate right hydroureteronephrosis secondary to a proximal 7.2 mm right ureteral calculus. Moderate left hydroureteronephrosis secondary to a proximal 3 to 4 mm left ureteral calculus. Findings are unchanged. No gross evidence for bowel obstruction. No free air or free fluid. Urinary bladder is not distended, limiting its evaluation. Scattered colonic diverticuli without CT evidence for diverticulitis. IMPRESSION: Stable obstructing proximal ureteral calculi bilaterally. Associated hydroureteronephrosis bilaterally. Findings are unchanged from the prior exam. Other chronic findings as above TECHNICAL DOCUMENTATION: Quality ID # [id number]: Final reports with documentation of one or more dose reduction techniques (e.g., Automated exposure control, adjustment of the mA and/or kV according to patient size, use of iterative reconstruction technique) copyright 2010 [employer]- All Rights Reserved
--- NOTE | 2019-02-08 03:28 | ER Document Report ---
ED General - General Chief Complaint: Possible Kidney Stone Stated Complaint: KIDNEY STONES Time Seen by Provider: 02/08/19 00:23 Notes: Patient is a 58-year-old male with a past medical history of nephrolithiasis, chronic pain, presents to the emergency department with ongoing bilateral flank pain as well as nausea but no vomiting. Pain is regarded as being a stabbing, constant, severe pain to the bilateral flanks. He has been taking medication at home that was provided during his previous visit with some improvement. Has been able to tolerate oral intake. Denies fever or constitutional symptoms. Has not yet been able to follow-up with urology although is scheduled to follow- up with the next several days by his report. Continues to pass urine. TRAVEL OUTSIDE OF THE [place] IN LAST 30 DAYS: No - Related Data Allergies/Adverse Reactions: erythromycin base Allergy (Verified 12/08/18 08:51) hydromorphone [From Dilaudid] Adverse Reaction (Verified 12/08/18 08:51) palpations ketorolac [From Toradol] Adverse Reaction (Verified 12/08/18 08:51) Past Medical History - General Information source: Patient - Social History Smoking Status: Never Smoker Frequency of alcohol use: None Drug Abuse: None Lives with: Spouse/Significant other Family History: Reviewed & Not Pertinent Patient has suicidal ideation: No Patient has homicidal ideation: No - Past Medical History Cardiac Medical History: Reports: Hx DVT, Hx Hypercholesterolemia, Hx Hypertension Neurological Medical History: Reports: Hx Cerebrovascular Accident - TIA Renal/ Medical History: Reports: Hx Kidney Stones. Denies: Hx Peritoneal Dialysis GI Medical History: Reports: Hx Hepatitis - History of hepatitis C. He has had treatment. Musculoskeletal Medical History: Reports Hx Arthritis Infectious Medical History: Reports: Hx Hepatitis - History of hepatitis C. He has had treatment. Past Surgical History: Reports: Hx Abdominal Surgery - hernia, Hx Cholecystectomy, Hx Orthopedic Surgery - Has had cervical spine surgery, r Knee Replacement, Hx Vascular Surgery - removal of DVTs in legs, IVC filter placed - Immunizations Hx Diphtheria, Pertussis, Tetanus Vaccination: No Review of Systems - Review of Systems Notes: Constitutional: Negative for fever. HENT: Negative for sore throat. Eyes: Negative for visual changes. Cardiovascular: Negative for chest pain. Respiratory: Negative for shortness of breath. Gastrointestinal: Positive for abdominal pain and nausea Genitourinary: Negative for dysuria. Musculoskeletal: Negative for back pain. Skin: Negative for rash. Neurological: Negative for headaches, weakness or numbness. 10 point ROS negative except as marked above and in HPI. Physical Exam - Vital signs Vitals: Temp Pulse Resp BP Pulse Ox 98.6 F 68 16 163/87 H 97 02/07/19 22:16 02/07/19 22:16 02/07/19 22:16 02/07/19 22:16 02/07/19 22:16 Interpretation: Hypertensive Notes: PHYSICAL EXAMINATION: GENERAL: Well-appearing, well-nourished and in no acute distress. HEAD: Atraumatic, normocephalic. EYES: Pupils equal round and reactive to light, extraocular movements intact, sclera anicteric, conjunctiva are normal. ENT: nares patent, oropharynx clear without exudates. Moist mucous membranes. NECK: Normal range of motion, supple without lymphadenopathy LUNGS: Breath sounds clear to auscultation bilaterally and equal. No wheezes rales or rhonchi. HEART: Regular rate and rhythm without murmurs ABDOMEN: Soft, mild bilateral CVA tenderness, nontender, normoactive bowel sounds. No guarding, no rebound. No masses appreciated. EXTREMITIES: Normal range of motion, no pitting or edema. No cyanosis. NEUROLOGICAL: No focal neurological deficits. Moves all extremities spontaneously and on command. PSYCH: Normal mood, normal affect. SKIN: Warm, Dry, normal turgor, no rashes or lesions noted. Course - Re-evaluation Re-evalutation: 02/08/19 03:25 Patient presents with bilateral flank pain, CT shows unchanged finding of bilateral moderate hydronephrosis with bilateral stones. Renal function has deteriorated slightly since 4 days ago. Urinalysis looks much improved. Culture from previous appears to be urogenital roscoe. I have contacted [facility] for consultation with urology given bilateral hydronephrosis and awaiting callback 02/08/19 03:51 I did discuss with Dr. Dai the urologist at [facility] who has accepted the patient to the emergency department for stent placement given ongoing bilateral hydronephrosis and worsening renal function. Patient is in agreement with this, awaiting transport. - Vital Signs Vital signs: Temp Pulse Resp BP Pulse Ox 98.6 F 68 16 163/87 H 97 02/07/19 22:16 02/07/19 22:16 02/07/19 22:16 02/07/19 22:16 02/07/19 22:16 - Laboratory Result Diagrams: 02/07/19 22:50 02/07/19 22:50 Laboratory results interpreted by me: 02/07/19 02/07/19 02/07/19 22:50 22:50 22:50 RBC 3.88 L Hgb 12.6 L Hct 37.1 L RDW 14.7 H Plt Count 34 L Chloride 110 H Creatinine 1.36 H Est GFR (Non-Af Amer) 54 L Total Bilirubin 1.6 H Direct Bilirubin 0.5 H Total Protein 5.7 L Albumin 2.9 L Urine Urobilinogen 4.0 H - Diagnostic Test Radiology reviewed: Reports reviewed Discharge - Discharge Clinical Impression: Bilateral nephrolithiasis, Bilateral hydronephrosis, Acute kidney injury (nontraumatic) Condition: Fair Disposition: [facility]
[2019-02-08] MEDS ORDERED: ONDANSETRON HCL INJ/PF 4 MG/2 ML SDV IV ONE (03:52)
[2019-02-08] MEDS ORDERED: MORPHINE SULFATE 10 MG/ML INJ IV PRN (03:52)
[2019-02-08] MEDS ORDERED: RINGERS SOLUTION,LACTATED 1,000 ML IV ONE (03:52)
[2019-02-08 04:46] VITALS: BP 155/85
== END 2019-02-08 04:54 | disposition short-term general hospital (02) ==
LOC: ER 22:02
DX: N13.2 Hydronephrosis with renal and ureteral calculous obstruction (principal); N17.9 Acute kidney failure, unspecified; R10.9 Unspecified abdominal pain; R11.0 Nausea; I10 Essential (primary) hypertension; Z88.1 Allergy status to other antibiotic agents; Z90.49 Acquired absence of other specified parts of digestive tract
CPT/HCPCS: 99285; 96361; 96374; 96375; 36415; 83690; 85025; 80053; 81001; 74176; A9270 ×2; J2270; J2405; J7120; S0119

== ENCOUNTER 2019-02-11 14:33 | Emergency (ER) | payer MEDICARE ==
--- NOTE | 2019-02-11 14:55 | ER Document Report ---
ED Medical Screen (RME) - General Chief Complaint: Urinary Problem Stated Complaint: BLOOD IN URINE Time Seen by Provider: 02/11/19 14:52 Mode of Arrival: Ambulatory Information source: Patient Notes: 58-year-old male presented to ED for complaint of hematuria for the last 3 days. He states he had multiple kidney stones he was seen here sent to [place] they placed stents in his ureters. He states he has a platelet problem and when he was here last time his platelets were 30 and he did not receive platelets. He states he has been bleeding. Blood almost constantly for the last 3 days with a lot of pain. I have greeted and performed a rapid initial assessment of this patient. A comprehensive ED assessment and evaluation of the patient, analysis of test results and completion of medical decision making process will be conducted by an additional ED providers. Dictation of this chart was performed using voice recognition software; therefore, there may be some unintended grammatical errors. TRAVEL OUTSIDE OF THE [place] IN LAST 30 DAYS: No - Related Data Allergies/Adverse Reactions: erythromycin base Allergy (Verified 02/11/19 14:35) hydromorphone [From Dilaudid] Adverse Reaction (Verified 02/11/19 14:35) palpations ketorolac [From Toradol] Adverse Reaction (Verified 02/11/19 14:35) Past Medical History - Past Medical History Cardiac Medical History: Reports: Hx DVT, Hx Hypercholesterolemia, Hx Hypertension Neurological Medical History: Reports: Hx Cerebrovascular Accident - TIA Renal/ Medical History: Reports: Hx Kidney Stones. Denies: Hx Peritoneal Dialysis GI Medical History: Reports: Hx Hepatitis - History of hepatitis C. He has had treatment. Musculoskeltal Medical History: Reports Hx Arthritis Infectious Medical History: Reports: Hx Hepatitis - History of hepatitis C. He has had treatment. Past Surgical History: Reports: Hx Abdominal Surgery - hernia, Hx Chol ecystectomy, Hx Orthopedic Surgery - Has had cervical spine surgery, r Knee Replacement, Hx Vascular Surgery - removal of DVTs in legs, IVC filter placed - Immunizations Hx Diphtheria, Pertussis, Tetanus Vaccination: No Physical Exam - Vital signs Vitals: Temp Pulse Resp BP Pulse Ox 97.8 F 71 16 160/79 H 98 02/11/19 14:42 02/11/19 14:42 02/11/19 14:42 02/11/19 14:42 02/11/19 14:42 Course - Vital Signs Vital signs: Temp Pulse Resp BP Pulse Ox 97.8 F 71 16 160/79 H 98 02/11/19 14:42 02/11/19 14:42 02/11/19 14:42 02/11/19 14:42 02/11/19 14:42
[2019-02-11] MEDS ORDERED: NORMAL SALINE 1000 ML 1,000 ML IV ONE (15:06)
[2019-02-11 15:21] LABS: ABSOLUTE EOSINOPHILS # (AUTO) 0.1 10^3/uL (0.0-0.6); ABSOLUTE LYMPHOCYTES (AUTO) 1.6 10^3/uL (0.5-4.7); ABSOLUTE MONOCYTES (AUTO) 0.7 10^3/uL (0.1-1.4); ABSOLUTE NEUT (AUTO) 4.4 10^3/uL (1.7-8.2); BASOPHILS % (AUTO) 0.3 % (0-2); EOSINOPHILS % (AUTO) 1.9 % (0-6); HEMATOCRIT 39.6 % (37.9-51.0); HEMOGLOBIN 13.6 g/dL (13.5-17.0); LYMPHOCYTES % (AUTO) 23.1 % (13-45); MEAN CORPUSCULAR HEMOGLOBIN 32.9 pg (27.0-33.4); MEAN CORPUSCULAR HGB CONC 34.3 g/dL (32.0-36.0); MEAN CORPUSCULAR VOLUME 96 fl (80-97); MONOCYTES % (AUTO) 10.6 % (3-13); RED BLOOD COUNT 4.13 10^6/uL (4.35-5.55); RED CELL DISTRIBUTION WIDTH 15.2 % (11.5-14.0); SEGMENTED NEUTROPHILS % (AUTO) 64.1 % (42-78); TOTAL CELLS COUNTED % (AUTO) 100 %; WHITE BLOOD COUNT 6.9 10^3/uL (4.0-10.5)
[2019-02-11 15:22] LABS: APPEARANCE,URINE SLIGHTLY-CLOUDY; BILIRUBIN,URINE NEGATIVE (NEGATIVE); GLUCOSE, URINE NEGATIVE (NEGATIVE); KETONES,URINE NEGATIVE (NEGATIVE); LEUKOCYTE ESTERASE,URINE LARGE (NEGATIVE); NITRITE,URINE NEGATIVE (NEGATIVE); PROTEIN,URINE 100 mg/dL (NEGATIVE); URINE SPECIFIC GRAVITY 1.015
[2019-02-11 15:23] LABS: COLOR,URINE RED
[2019-02-11 15:24] LABS: PLATELET COUNT 58 10^3/uL (150-450)
[2019-02-11 15:33] LABS: ALANINE AMINOTRANSFERASE 49 U/L (21-72); ALBUMIN 2.8 g/dL (3.5-5.0); ALKALINE PHOSPHATASE 111 U/L (38-126); ANION GAP 6 (5-19); ASPARTATE AMINO TRANSFERASE 42 U/L (17-59); BILIRUBIN,DIRECT 0.5 mg/dL (0.0-0.4); BILIRUBIN,TOTAL 1.6 mg/dL (0.2-1.3); BLOOD UREA NITROGEN 14 mg/dL (7-20); CALCIUM 8.6 mg/dL (8.4-10.2); CARBON DIOXIDE 28 mmol/L (22-30); CHLORIDE 107 mmol/L (98-107); GLUCOSE 129 mg/dL (75-110); POTASSIUM 3.7 mmol/L (3.6-5.0); SODIUM 140.5 mmol/L (137-145); TOTAL PROTEIN 5.7 g/dL (6.3-8.2)
--- NOTE | 2019-02-11 15:51 | RADIOLOGY REPORT (SQ) ---
EXAM DESCRIPTION: CT ABD/PELVIS NO ORAL OR IV COMPLETED DATE/TIME: 02/11/2019 3:29 pm REASON FOR STUDY: flank pain hematuriA COMPARISON: 02/08/2019, 02/04/2019, 11/14/2018 TECHNIQUE: CT scan of the abdomen and pelvis performed without intravenous or oral contrast. Images reviewed with lung, soft tissue, and bone windows. Reconstructed coronal and sagittal MPR images revi ewed. All images stored on PACS. All CT scanners at this facility use dose modulation, iterative reconstruction, and/or weight based d osing when appropriate to reduce radiation dose to as low as reasonably achievable (ALARA). [facility]: Dose Right [facility]: CareDose [facility]: Dose Right [facility]: Teradose 4D [facility]: [employer] RADIATION DOSE: CT Rad equipment meets quality standard of care and radiation dose reduction techniq ues were employed. CTDIvol: 17.7 mGy. DLP: 1036 mGy-cm.mGy. LIMITATIONS: None. FINDINGS: LOWER CHEST: No significant findings. No nodules or infiltrates. NON-CONTRASTED LIVER, SPLEEN, ADRENALS: Evaluation limited by lack of IV contrast. No identified sign ificant masses. The liver appears diminutive demonstrating nodular contours, suggesting cirrhotic ch anges. PANCREAS: No masses. No peripancreatic inflammatory changes. GALLBLADDER: Surgically absent. RIGHT KIDNEY AND URETER: No suspicious masses. Assessment limited by lack of IV contrast. No signif icant calcifications. Interval placement of a right ureteral stent which originates in the proximal ureter and terminates in the bladder. LEFT KIDNEY AND URETER: No suspicious masses. Assessment limited by lack of IV contrast. No signifi cant calcifications. Interval placement of a left ureteral stent which originates in the left renal pelvis and terminates within the bladder. AORTA AND RETROPERITONEUM: No aneurysm. No retroperitoneal masses or adenopathy. BOWEL AND PERITONEAL CAVITY: Central mesenteric stranding is unchanged in the study interval. No ruma e fluid, pneumoperitoneum. APPENDIX: Not visualized. PELVIS, BLADDER, AND ABDOMINAL WALL:No abnormal masses. No free fluid. Bladder is largely decompresse d. BONES: No significant findings. OTHER: No other significant finding. IMPRESSION: Interval placement of bilateral ureteral stents without evidence of obstructive uropathy . Somewhat low position of the right ureteral stent may be related to the patient's presenting sympt oms. COMMENT: Quality ID # [id number]: Final reports with documentation of one or more dose reduction techniques (e.g., Automated exposure control, adjustment of the mA and/or kV according to patient size, use of iterative reconstruction technique) TECHNICAL DOCUMENTATION: JOB ID: [id number] [employer]- All Rights Reserved Reading location - IP/workstation name: [email or web address]
[2019-02-11] MEDS ORDERED: MORPHINE SULFATE 10 MG/ML INJ IV ONE (16:37)
[2019-02-11] MEDS ORDERED: ONDANSETRON HCL INJ/PF 4 MG/2 ML SDV IV ONE (16:37)
--- NOTE | 2019-02-11 18:16 | ER Document Report ---
ED GI/ - General Chief Complaint: Urinary Problem Stated Complaint: BLOOD IN URINE Time Seen by Provider: 02/11/19 14:52 Primary Care Provider: STEVEN VILLALOBOS MD [Primary Care Provider] - Follow up as needed Mode of Arrival: Ambulatory Notes: 58-year-old male with history of kidney stones presents to the ER complaining of bilateral flank pain and hematuria. The patient was seen last week and was transferred to [facility] for bilateral obstructing kidney stones. Ureteral stents were placed bilateral. Patient returns today stating he is still bleeding and still having pain. Patient is to follow-up with urology next week. Patient also states he is out of his pain medicine. Patient denies fever or chills. Denies nausea vomiting. Complains of hematuria and bilateral flank pain for which he describes as severe nothing makes it better or worse TRAVEL OUTSIDE OF THE [place] IN LAST 30 DAYS: No - Related Data Allergies/Adverse Reactions: erythromycin base Allergy (Verified 02/11/19 14:35) hydromorphone [From Dilaudid] Adverse Reaction (Verified 02/11/19 14:35) palpations ketorolac [From Toradol] Adverse Reaction (Verified 02/11/19 14:35) Past Medical History - General Information source: Patient - Social History Smoking Status: Current Every Day Smoker Frequency of alcohol use: None Drug Abuse: None Family History: Reviewed & Not Pertinent Patient has suicidal ideation: No Patient has homicidal ideation: No - Past Medical History Cardiac Medical History: Reports: Hx DVT, Hx Hypercholesterolemia, Hx Hypertension Neurological Medical History: Reports: Hx Cerebrovascular Accident - TIA Renal/ Medical History: Reports: Hx Kidney Stones. Denies: Hx Peritoneal Dialysis GI Medical History: Reports: Hx Hepatitis - History of hepatitis C. He has had treatment. Musculoskeletal Medical History: Reports Hx Arthritis Infectious Medical History: Reports: Hx Hepatitis - History of hepatitis C. He has had treatment. Past Surgical History: Reports: Hx Abdominal Surgery - hernia, Hx Appendectomy, Hx Cholecystectomy, Hx Kidney (Renal Surgery) - kidney stones, Hx Orthopedic Surgery - Has had cervical spine surgery, r Knee Replacement, Hx Vascular Surgery - removal of DVTs in legs, IVC filter placed - Immunizations Hx Diphtheria, Pertussis, Tetanus Vaccination: No Review of Systems - Review of Systems Constitutional: denies: Chills, Fever Cardiovascular: denies: Chest pain, Dyspnea Respiratory: denies: Short of breath Gastrointestinal: denies: Nausea, Vomiting Genitourinary: Flank pain, Hematuria Male Genitourinary: denies: Penile discharge -: Yes All other systems reviewed and negative Physical Exam - Vital signs Vitals: Temp Pulse Resp BP Pulse Ox 97.8 F 71 16 160/79 H 98 02/11/19 14:42 02/11/19 14:42 02/11/19 14:42 02/11/19 14:42 02/11/19 14:42 - Notes Notes: GENERAL_APPEARANCE: well_nourished, alert, cooperative, no_acute_distress, no_obvious_discomfort. VITALS: reviewed, see vital signs table. HEAD: no_swelling\tenderness on the head. EYES: PERRL, EOMI, conjunctiva_clear. NOSE: no_nasal_discharge. MOUTH: (-)decreased moisture. THROAT: no_tonsilar_inflammation, no_airway_obstruction. no_lymphadenopathy NECK: supple, no_neck_tenderness, (-)thyromegaly. BACK: Lateral CVA tenderness CHEST_WALL: no_chest_tenderness. LUNGS: no_wheezing, no_rales, no_rhonchi, (-)accessory muscle use, good air exchange bilateral. HEART: normal_rate, normal_rhythm, normal_S1, normal_S2, (-)S3, (-)S4, no_murmur, no_rub. ABDOMEN: normal_BS, soft, no_abd_tenderness, (-)guarding, (-)rebound, no_organomegaly, no_abd_masses. EXTREMITIES: good pulses in all_extremities, no_swelling\tenderness in the extremities, no_edema. SKIN: warm, dry, good_color, no_rash. MENTAL_STATUS: speech_clear, oriented_X_3, normal_affect, responds_appropriately to questions. Course - Re-evaluation Re-evalutation: 02/11/19 18:12 58-year-old male comes in complaining of hematuria and bilateral flank pain. Patient had states he is having some clots in his urine. Wanted to be checked he denies fever chills denies nausea vomiting. The patient filled a cup which looks like mustafa Mk-Aid. There is no clots. It did not look like gross blood. CT scan shows the stents but no obstruction or hydronephrosis. Urine showed white cells and red cells. I spoke with urology on-call for [facility] Dr. Óscar Esteban. He reviewed the patient's chart in [facility]. The patient is on Keflex at this time. He feels that since the patient does not have fever leukocytosis although white cells is likely an inflammatory response to the stone and the stents. He does not recommend any additional antibiotics. The patient also has normal BUN and creatinine. Patient was given a liter of IV fluids here. [facility] states that they will see him next week as scheduled. This is to be expected. Patient has no urinary retention and can urinate freely. With the patient and he is comfortable with this. 02/11/19 18:15 The patient's low platelets are normal. - Vital Signs Vital signs: Temp Pulse Resp BP Pulse Ox 97.8 F 71 16 160/79 H 98 02/11/19 14:42 02/11/19 14:42 02/11/19 14:42 02/11/19 14:42 02/11/19 14:42 - Laboratory Result Diagrams: 02/11/19 15:00 02/11/19 15:00 Laboratory results interpreted by me: 02/11/19 02/11/19 02/11/19 14:40 15:00 15:00 RBC 4.13 L RDW 15.2 H Plt Count 58 L Glucose 129 H Total Bilirubin 1.6 H Direct Bilirubin 0.5 H Total Protein 5.7 L Albumin 2.8 L Urine Protein 100 H Urine Blood MODERATE H Urine Urobilinogen 4.0 H Ur Leukocyte Esterase LARGE H - Diagnostic Test Radiology reviewed: Reports reviewed Radiology results interpreted by me: 02/11/19 18:12 Abdomen/Pelvis CT 02/11/19 15:06 IMPRESSION: Interval placement of bilateral ureteral stents without evidence of obstructive uropathy. Somewhat low position of the right ureteral stent may be related to the patient's presenting symptoms. Discharge - Discharge Clinical Impression: Ureterolithiasis Hematuria Qualifiers: Hematuria type: unspecified type Qualified Code(s): R31.9 - Hematuria, unspecified Condition: Good Disposition: HOME, SELF-CARE Instructions: Kidney Stone ([facility]) Additional Instructions: Please keep her follow-up appointment next week with [facility]. Prescriptions: Oxycodone HCl [Roxicodone] 5 mg PO Q6H PRN #21 tablet PRN Reason: Referrals: STEVEN VILLALOBOS MD [Primary Care Provider] - Follow up as needed
[2019-02-11 18:35] VITALS: BP 143/81
== END 2019-02-11 18:40 | disposition home or self-care (01) ==
LOC: ER 14:33
DX: N20.1 Calculus of ureter (principal); R31.9 Hematuria, unspecified; R10.9 Unspecified abdominal pain; F17.200 Nicotine dependence, unspecified, uncomplicated; E78.00 Pure hypercholesterolemia, unspecified; I10 Essential (primary) hypertension; Z86.73 Personal history of transient ischemic attack (TIA), and cerebral infarction without residual deficits; Z87.442 Personal history of urinary calculi; Z86.19 Personal history of other infectious and parasitic diseases; Z90.49 Acquired absence of other specified parts of digestive tract; Z88.3 Allergy status to other anti-infective agents; Z88.6 Allergy status to analgesic agent
CPT/HCPCS: 99284; 96361; 96374; 96375; 86900; 86901; 36415; 86850; 85025; 80053; 81001; 74176; J2270; J2405; J7030

== ENCOUNTER 2019-02-23 14:17 | Emergency (ER) | payer MEDICARE ==
[2019-02-23] MEDS ORDERED: OXYCODONE HCL IR 5 MG TABLET PO ONE (15:12)
--- NOTE | 2019-02-23 15:14 | ER Document Report ---
ED Medical Screen (RME) - General Chief Complaint: Flank Pain Stated Complaint: FLANK PAIN Time Seen by Provider: 02/23/19 15:12 Primary Care Provider: STEVEN VILLALOBOS MD [Primary Care Provider] - Follow up as needed Mode of Arrival: Ambulatory Information source: Patient Notes: 58-year-old male presented to ED for blood in his urine and pain for the last 4 weeks since he had kidney stones was sent to [place] they put kidney stents in place. He states he has been bleeding and had severe pain since then. He states his called the provider several times and they said he they did not know anything else to do. He does have a history of low platelets and hep C. He states he was supposed to follow-up next week but he is already had them in place for 5 weeks. He states he does smoke a pack a day does not drink or do any kind of drugs. He states he cannot take this pain and bleeding anymore. He has been treated with 1 5 mg oxycodone and blood and urine has been sent. I have greeted and performed a rapid initial assessment of this patient. A comprehensive ED assessment and evaluation of the patient, analysis of test results and completion of medical decision making process will be conducted by an additional ED providers. Dictation of this chart was performed using voice recognition software; therefore, there may be some unintended grammatical errors. TRAVEL OUTSIDE OF THE [place] IN LAST 30 DAYS: No - Related Data Allergies/Adverse Reactions: erythromycin base Allergy (Verified 02/23/19 14:24) hydromorphone [From Dilaudid] Adverse Reaction (Verified 02/23/19 14:24) palpations ketorolac [From Toradol] Adverse Reaction (Verified 02/23/19 14:24) Past Medical History - Past Medical History Cardiac Medical History: Reports: Hx DVT, Hx Hypercholesterolemia, Hx Hypertension Neurological Medical History: Reports: Hx Cerebrovascular Accident - TIA Renal/ Medical History: Reports: Hx Kidney Stones. Denies: Hx Peritoneal Dialysis GI Medical History: Reports: Hx Hepatitis - History of hepatitis C. He has had treatment. Musculoskeltal Medical History: Reports Hx Arthritis Infectious Medical History: Reports: Hx Hepatitis - History of hepatitis C. He has had treatment. Past Surgical History: Reports: Hx Abdominal Surgery - hernia, Hx Appendectomy, Hx Cholecystectomy, Hx Kidney (Renal Surgery) - kidney stones, Hx Orthopedic Surgery - Has had cervical spine surgery, r Knee Replacement, Hx Vascular Surgery - removal of DVTs in legs, IVC filter placed - Immunizations Hx Diphtheria, Pertussis, Tetanus Vaccination: No Doctor's Discharge - Discharge Referrals: STEVEN VILLALOBOS MD [Primary Care Provider] - Follow up as needed
[2019-02-23 16:00] LABS: APPEARANCE,URINE CLOUDY; BILIRUBIN,URINE NEGATIVE (NEGATIVE); COLOR,URINE AMBER; GLUCOSE, URINE NEGATIVE (NEGATIVE); KETONES,URINE NEGATIVE (NEGATIVE); LEUKOCYTE ESTERASE,URINE MODERATE (NEGATIVE); NITRITE,URINE NEGATIVE (NEGATIVE); PROTEIN,URINE 100 mg/dL (NEGATIVE); URINE SPECIFIC GRAVITY 1.018; UROBILINOGEN,URINE NEGATIVE mg/dL (<2.0)
[2019-02-23 16:26] LABS: ALANINE AMINOTRANSFERASE 43 U/L (21-72); ALBUMIN 3.1 g/dL (3.5-5.0); ALKALINE PHOSPHATASE 88 U/L (38-126); ANION GAP 5 (5-19); ASPARTATE AMINO TRANSFERASE 49 U/L (17-59); BILIRUBIN,DIRECT 0.4 mg/dL (0.0-0.4); BILIRUBIN,TOTAL 1.7 mg/dL (0.2-1.3); BLOOD UREA NITROGEN 10 mg/dL (7-20); CALCIUM 9.1 mg/dL (8.4-10.2); CARBON DIOXIDE 25 mmol/L (22-30); CHLORIDE 111 mmol/L (98-107); GLUCOSE 103 mg/dL (75-110); POTASSIUM 4.4 mmol/L (3.6-5.0); SODIUM 141.3 mmol/L (137-145); TOTAL PROTEIN 6.1 g/dL (6.3-8.2)
[2019-02-23 16:39] LABS: ABSOLUTE EOSINOPHILS # (AUTO) 0.1 10^3/uL (0.0-0.6); ABSOLUTE LYMPHOCYTES (AUTO) 1.1 10^3/uL (0.5-4.7); ABSOLUTE MONOCYTES (AUTO) 0.6 10^3/uL (0.1-1.4); ABSOLUTE NEUT (AUTO) 4.8 10^3/uL (1.7-8.2); BASOPHILS % (AUTO) 0.3 % (0-2); EOSINOPHILS % (AUTO) 1.6 % (0-6); HEMATOCRIT 39.2 % (37.9-51.0); HEMOGLOBIN 13.4 g/dL (13.5-17.0); LYMPHOCYTES % (AUTO) 16.7 % (13-45); MEAN CORPUSCULAR HGB CONC 34.3 g/dL (32.0-36.0); MEAN CORPUSCULAR VOLUME 96 fl (80-97); MONOCYTES % (AUTO) 9.3 % (3-13); RED BLOOD COUNT 4.07 10^6/uL (4.35-5.55); RED CELL DISTRIBUTION WIDTH 15.2 % (11.5-14.0); SEGMENTED NEUTROPHILS % (AUTO) 72.1 % (42-78); TOTAL CELLS COUNTED % (AUTO) 100 %; WHITE BLOOD COUNT 6.7 10^3/uL (4.0-10.5)
[2019-02-23 16:40] LABS: PLATELET COUNT 39 10^3/uL (150-450)
== END 2019-02-23 21:05 | disposition left against medical advice (07) ==
LOC: ER 14:17
DX: R10.9 Unspecified abdominal pain (principal); R31.9 Hematuria, unspecified; I10 Essential (primary) hypertension; Z96.0 Presence of urogenital implants; F17.200 Nicotine dependence, unspecified, uncomplicated; Z88.1 Allergy status to other antibiotic agents; Z53.20 Procedure and treatment not carried out because of patient's decision for unspecified reasons
CPT/HCPCS: 99281; 36415; 85025; 80053; 81001; A9270

== ENCOUNTER 2019-03-05 20:34 | Emergency (ER) | payer MEDICARE ==
[2019-03-05 23:27] LABS: AMORPHOUS SEDIMENT,URINE TRACE /HPF; APPEARANCE,URINE CLOUDY; BILIRUBIN,URINE NEGATIVE (NEGATIVE); COLOR,URINE RED; GLUCOSE, URINE NEGATIVE (NEGATIVE); KETONES,URINE NEGATIVE (NEGATIVE); LEUKOCYTE ESTERASE,URINE MODERATE (NEGATIVE); NITRITE,URINE NEGATIVE (NEGATIVE); PROTEIN,URINE 100 mg/dL (NEGATIVE); URINE SPECIFIC GRAVITY 1.019; UROBILINOGEN,URINE NEGATIVE mg/dL (<2.0)
--- NOTE | 2019-03-05 23:38 | ER Document Report ---
ED Medical Screen (RME) - General Chief Complaint: Flank Pain Stated Complaint: BACK PAIN Time Seen by Provider: 03/05/19 23:36 Primary Care Provider: STEVEN VILLALOBOS MD [Primary Care Provider] - Follow up as needed Notes: 58-year-old male with known history of bilateral obstructing nephrolithiasis, went to [place] and had stents placed bilaterally, complaining of pain, urinating blood, unable to sleep. Reports nausea but denies vomiting. Denies fever. TRAVEL OUTSIDE OF THE [place] IN LAST 30 DAYS: No - Related Data Allergies/Adverse Reactions: erythromycin base Allergy (Verified 02/23/19 14:24) hydromorphone [From Dilaudid] Adverse Reaction (Verified 02/23/19 14:24) palpations ketorolac [From Toradol] Adverse Reaction (Verified 02/23/19 14:24) Past Medical History - Past Medical History Cardiac Medical History: Reports: Hx DVT, Hx Hypercholesterolemia, Hx Hy pertension Neurological Medical History: Reports: Hx Cerebrovascular Accident - TIA Renal/ Medical History: Reports: Hx Kidney Stones. Denies: Hx Peritoneal Dialysis GI Medical History: Reports: Hx Hepatitis - History of hepatitis C. He has had treatment. Musculoskeltal Medical History: Reports Hx Arthritis Infectious Medical History: Reports: Hx Hepatitis - History of hepatitis C. He has had treatment. Past Surgical History: Reports: Hx Abdominal Surgery - hernia, Hx Appendectomy, Hx Cholecystectomy, Hx Kidney (Renal Surgery) - kidney stones, Hx Orthopedic Surgery - Has had cervical spine surgery, r Knee Replacement, Hx Vascular Surgery - removal of DVTs in legs, IVC filter placed - Immunizations Hx Diphtheria, Pertussis, Tetanus Vaccination: No Physical Exam - Vital signs Vitals: Temp Pulse Resp BP Pulse Ox 98.0 F 61 22 H 153/77 H 100 03/05/19 21:26 03/05/19 21:26 03/05/19 21:26 03/05/19 21:26 03/05/19 21:26 - General General appearance: Appears well, Alert - Abdominal Tenderness: Tender - Minimal generalized abdominal tenderness, non-specific, no guarding Course - Re-evaluation Re-evalutation: I have greeted and performed a rapid initial assessment of this patient. A comprehensive ED assessment and evaluation of the patient, analysis of test results and completion of the medical decision making process will be conducted by additional ED providers. - Vital Signs Vital signs: Temp Pulse Resp BP Pulse Ox 98.0 F 61 22 H 153/77 H 100 03/05/19 21:26 03/05/19 21:26 03/05/19 21:26 03/05/19 21:26 03/05/19 21:26 - Laboratory Laboratory results interpreted by me: 03/05/19 21:14 Urine Protein 100 H Urine Blood LARGE H Ur Leukocyte Esterase MODERATE H Doctor's Discharge - Discharge Referrals: STEVEN VILLALOBOS MD [Primary Care Provider] - Follow up as needed
[2019-03-05] MEDS ORDERED: MORPHINE SULFATE IR 15 MG TABLET PO ONE (23:49)
[2019-03-05 23:56] LABS: ABSOLUTE EOSINOPHILS # (AUTO) 0.3 10^3/uL (0.0-0.6); ABSOLUTE LYMPHOCYTES (AUTO) 1.5 10^3/uL (0.5-4.7); ABSOLUTE MONOCYTES (AUTO) 0.6 10^3/uL (0.1-1.4); ABSOLUTE NEUT (AUTO) 3.2 10^3/uL (1.7-8.2); BASOPHILS % (AUTO) 0.4 % (0-2); EOSINOPHILS % (AUTO) 5.5 % (0-6); HEMATOCRIT 40.4 % (37.9-51.0); HEMOGLOBIN 13.9 g/dL (13.5-17.0); LYMPHOCYTES % (AUTO) 26.2 % (13-45); MEAN CORPUSCULAR HEMOGLOBIN 32.9 pg (27.0-33.4); MEAN CORPUSCULAR HGB CONC 34.3 g/dL (32.0-36.0); MEAN CORPUSCULAR VOLUME 96 fl (80-97); MONOCYTES % (AUTO) 10.1 % (3-13); RED BLOOD COUNT 4.22 10^6/uL (4.35-5.55); RED CELL DISTRIBUTION WIDTH 15.5 % (11.5-14.0); SEGMENTED NEUTROPHILS % (AUTO) 57.8 % (42-78); TOTAL CELLS COUNTED % (AUTO) 100 %; WHITE BLOOD COUNT 5.6 10^3/uL (4.0-10.5)
[2019-03-05 23:58] LABS: PLATELET COUNT 45 10^3/uL (150-450)
[2019-03-06 00:24] LABS: ANION GAP 6 (5-19); BLOOD UREA NITROGEN 9 mg/dL (7-20); CALCIUM 8.7 mg/dL (8.4-10.2); CARBON DIOXIDE 25 mmol/L (22-30); CHLORIDE 113 mmol/L (98-107); GLUCOSE 85 mg/dL (75-110); POTASSIUM 4.6 mmol/L (3.6-5.0); SODIUM 144.2 mmol/L (137-145)
[2019-03-06] MEDS ORDERED: OXYBUTYNIN CHLORIDE 5 MG TABLET PO ONE (01:58)
--- NOTE | 2019-03-06 02:00 | ER Document Report ---
ED General - General Chief Complaint: Flank Pain Stated Complaint: BACK PAIN Time Seen by Provider: 03/05/19 23:36 Primary Care Provider: STEVEN VILLALOBOS MD [Primary Care Provider] - Follow up as needed Notes: Patient is a 58-year-old male with past medical history of bilateral ureteral stents for bilateral kidney stones, chronic thrombocytopenia, chronic pain, presents complaining of ongoing bilateral flank pain as well as ongoing hematuria. Patient describes pain to his flanks as being a severe, constant, throbbing pain. Not improved or worsened by anything. Is currently being prescribed Percocet 5 mg tablets which he states are not controlling his pain. Has gone back to [facility] on multiple occasions regarding this exact issue and states that they keep telling him "this is all expected and they are not doing anything to make me better". He has also come back to the emergency department several occasions for the same with otherwise reassuring evaluations. The patient is clear to state that there is nothing new or different about his symptoms today that prompted a repeat visit to the emergency department other than that his pain continues to be uncontrolled. He has not had fever or constitutional symptoms. No vomiting. Continues to be able to urinate without difficulty. TRAVEL OUTSIDE OF THE [place] IN LAST 30 DAYS: No - Related Data Allergies/Adverse Reactions: erythromycin base Allergy (Verified 02/23/19 14:24) hydromorphone [From Dilaudid] Adverse Reaction (Verified 02/23/19 14:24) palpations ketorolac [From Toradol] Adverse Reaction (Verified 02/23/19 14:24) Past Medical History - General Information source: Patient - Social History Smoking Status: Never Smoker Frequency of alcohol use: None Drug Abuse: None Lives with: Spouse/Significant other Family History: Reviewed & Not Pertinent - Past Medical History Cardiac Medical History: Reports: Hx DVT, Hx Hypercholesterolemia, Hx Hypertension Neurological Medical History: Reports: Hx Cerebrovascular Accident - TIA Renal/ Medical History: Reports: Hx Kidney Stones. Denies: Hx Peritoneal Dialysis GI Medical History: Reports: Hx Hepatitis - History of hepatitis C. He has had treatment. Musculoskeletal Medical History: Reports Hx Arthritis Infectious Medical History: Reports: Hx Hepatitis - History of hepatitis C. He has had treatment. Past Surgical History: Reports: Hx Abdominal Surgery - hernia, Hx Appendectomy, Hx Cholecystectomy, Hx Kidney (Renal Surgery) - kidney stones, Hx Orthopedic Surgery - Has had cervical spine surgery, r Knee Replacement, Hx Vascular Surgery - removal of DVTs in legs, IVC filter placed - Immunizations Hx Diphtheria, Pertussis, Tetanus Vaccination: No Review of Systems - Review of Systems Notes: Constitutional: Negative for fever. HENT: Negative for sore throat. Eyes: Negative for visual changes. Cardiovascular: Negative for chest pain. Respiratory: Negative for shortness of breath. Gastrointestinal: Positive for bilateral flank pain Genitourinary: Positive for hematuria Musculoskeletal: Negative for back pain. Skin: Negative for rash. Neurological: Negative for headaches, weakness or numbness. 10 point ROS negative except as marked above and in HPI. Physical Exam - Vital signs Vitals: Temp Pulse Resp BP Pulse Ox 98.0 F 61 22 H 153/77 H 100 03/05/19 21:26 03/05/19 21:26 03/05/19 21:26 03/05/19 21:26 03/05/19 21:26 Interpretation: Hypertensive Notes: PHYSICAL EXAMINATION: GENERAL: Well-appearing, well-nourished and in no acute distress. HEAD: Atraumatic, normocephalic. EYES: Pupils equal round and reactive to light, extraocular movements intact, sclera anicteric, conjunctiva are normal. ENT: nares patent, oropharynx clear without exudates. Moist mucous membranes. NECK: Normal range of motion, supple without lymphadenopathy LUNGS: Breath sounds clear to auscultation bilaterally and equal. No wheezes rales or rhonchi. HEART: Regular rate and rhythm without murmurs ABDOMEN: Soft, mild bilateral CVA tenderness, abdomen otherwise nontender, normoactive bowel sounds. No guarding, no rebound. No masses appreciated. EXTREMITIES: Normal range of motion, no pitting or edema. No cyanosis. NEUROLOGICAL: No focal neurological deficits. Moves all extremities spontaneously and on command. PSYCH: Normal mood, normal affect. SKIN: Warm, Dry, normal turgor, no rashes or lesions noted. Course - Re-evaluation Re-evalutation: 03/06/19 03:47 Patient presents with ongoing bilateral flank pain since having bilateral ureteral stents placed at [facility]. Patient has been reevaluated here as well as at the urology office on multiple occasions for the same and states that he is here primarily because he is tired of still having pain. Nothing is otherwise new or different that is causing a re-prompt to the emergency department. On exam he has some mild flank tenderness bilaterally but otherwise is in no discomfort. Resting calmly playing on his cell phone when I first walked into the room. His labs are unremarkable without evidence of renal dysfunction, chronic thrombocytopenia unchanged from previous. Urinalysis shows unchanged hematuria without evidence of infection. Bedside ultrasound does not demonstrate any evidence of hydronephrosis to either kidney. I have advised the patient that he needs to continue following with urology at [facility]. I have started him on oxybutynin to try to help control bladder spasms which could be contributing to some of his discomfort. I otherwise think the patient is clear for discharge home in ongoing outpatient follow-up. At this time will discharge with return precautions and follow-up recommendations. Verbal discharge instructions given a the bedside and opportunity for questions given. Medication warnings reviewed. Patient is in agreement with this plan and has verbalized understanding of return precautions and the need for primary care follow-up in the next 24-72 hours. - Vital Signs Vital signs: Temp Pulse Resp BP Pulse Ox 98.0 F 73 20 146/75 H 100 03/06/19 02:15 03/06/19 02:15 03/06/19 02:15 03/06/19 02:15 03/06/19 02:15 - Laboratory Result Diagrams: 03/05/19 22:42 03/05/19 22:42 Laboratory results interpreted by me: 03/05/19 03/05/19 03/05/19 21:14 22:42 22:42 RBC 4.22 L RDW 15.5 H Plt Count 45 L Chloride 113 H Urine Protein 100 H Urine Blood LARGE H Ur Leukocyte Esterase MODERATE H Discharge - Discharge Clinical Impression: Bilateral flank pain, History of renal stent Hematuria Qualifiers: Hematuria type: unspecified type Qualified Code(s): R31.9 - Hematuria, unspecified Condition: Good Disposition: HOME, SELF-CARE Additional Instructions: Please follow-up with your urologist at [facility] as scheduled. Return to the emergency department immediately for fever greater than 100.4 F, worsening pain, persistent vomiting, passing out, or any other symptoms that are worrisome to you. Your labs are unchanged from previous and your kidney ultrasound done at the bedside does not show any obvious blockage of your kidneys. Prescriptions: RX: Oxybutynin Chloride [Ditropan 5 mg Tablet] 10 mg PO TID #60 tablet Referrals: STEVEN VILLALOBOS MD [Primary Care Provider] - Follow up as needed
[2019-03-06 02:16] VITALS: BP 146/75
== END 2019-03-06 02:12 | disposition home or self-care (01) ==
LOC: ER 20:34
DX: R10.9 Unspecified abdominal pain (principal); R31.9 Hematuria, unspecified; G89.29 Other chronic pain; M54.9 Dorsalgia, unspecified; Z87.442 Personal history of urinary calculi; Z88.3 Allergy status to other anti-infective agents; Z88.6 Allergy status to analgesic agent; Z86.718 Personal history of other venous thrombosis and embolism; Z86.73 Personal history of transient ischemic attack (TIA), and cerebral infarction without residual deficits; Z90.49 Acquired absence of other specified parts of digestive tract; Z96.651 Presence of right artificial knee joint
CPT/HCPCS: 99284; 36415; 85025; 80048; 81001; A9270 ×2

== ENCOUNTER 2019-03-07 18:06 | Emergency (ER) | payer MEDICARE ==
[2019-03-07 18:22] VITALS: BP 145/74
[2019-03-07 19:35] LABS: APPEARANCE,URINE CLOUDY; BILIRUBIN,URINE NEGATIVE (NEGATIVE); GLUCOSE, URINE NEGATIVE (NEGATIVE); KETONES,URINE NEGATIVE (NEGATIVE); LEUKOCYTE ESTERASE,URINE MODERATE (NEGATIVE); NITRITE,URINE NEGATIVE (NEGATIVE); PROTEIN,URINE 100 mg/dL (NEGATIVE); URINE SPECIFIC GRAVITY 1.019
[2019-03-07 19:36] LABS: COLOR,URINE RED
== END 2019-03-07 21:32 | disposition left against medical advice (07) ==
LOC: ER 18:06
DX: Z53.21 Procedure and treatment not carried out due to patient leaving prior to being seen by health care provider (principal); R10.9 Unspecified abdominal pain
CPT/HCPCS: 81001

== ENCOUNTER 2019-03-08 01:18 | Emergency (ER) | payer MEDICARE ==
[2019-03-08 02:14] LABS: APPEARANCE,URINE CLOUDY; BILIRUBIN,URINE NEGATIVE (NEGATIVE); COLOR,URINE AMBER; GLUCOSE, URINE NEGATIVE (NEGATIVE); KETONES,URINE NEGATIVE (NEGATIVE); LEUKOCYTE ESTERASE,URINE MODERATE (NEGATIVE); NITRITE,URINE NEGATIVE (NEGATIVE); PROTEIN,URINE 100 mg/dL (NEGATIVE); URINE SPECIFIC GRAVITY 1.021
[2019-03-08] MEDS ORDERED: ONDANSETRON HCL INJ/PF 4 MG/2 ML SDV IV ONE (02:46)
[2019-03-08] MEDS ORDERED: MORPHINE SULFATE 10 MG/ML INJ IV ONE (02:46)
--- NOTE | 2019-03-08 03:07 | ER Document Report ---
ED GI/ - General Chief Complaint: Possible Kidney Stone Stated Complaint: BACK PAIN,BLOOD IN URINE Time Seen by Provider: 03/08/19 02:36 Primary Care Provider: STEVEN VILLALOBOS MD [Primary Care Provider] - Follow up as needed Notes: Patient is a 58-year-old male that comes to the emergency department for chief complaint of lower abdominal pain and hematuria. He has a known history of bilateral nephrolithiasis and ureterolithiasis with recent placement of stents at [facility]. His chief complaint is pain in the area, he denies fever/chills, nausea/vomiting. He is moving his bowels without difficulty. He also has a history of cirrhosis of the liver and chronic thrombocytopenia. TRAVEL OUTSIDE OF THE [place] IN LAST 30 DAYS: No - Related Data Allergies/Adverse Reactions: erythromycin base Allergy (Verified 03/07/19 18:08) hydromorphone [From Dilaudid] Adverse Reaction (Verified 03/07/19 18:08) palpations ketorolac [From Toradol] Adverse Reaction (Verified 03/07/19 18:08) Past Medical History - General Information source: Patient - Social History Smoking Status: Former Smoker Frequency of alcohol use: None Drug Abuse: None Lives with: Family Family History: Reviewed & Not Pertinent - Past Medical History Cardiac Medical History: Reports: Hx DVT, Hx Hypercholesterolemia, Hx Hypertension Neurological Medical History: Reports: Hx Cerebrovascular Accident - TIA Renal/ Medical History: Reports: Hx Kidney Stones. Denies: Hx Peritoneal Dialysis GI Medical History: Reports: Hx Hepatitis - History of hepatitis C. He has had treatment. Musculoskeletal Medical History: Reports Hx Arthritis Infectious Medical History: Reports: Hx Hepatitis - History of hepatitis C. He has had treatment. Past Surgical History: Reports: Hx Abdominal Surgery - hernia, Hx Appendectomy, Hx Cholecystectomy, Hx Kidney (Renal Surgery) - kidney stones, Hx Orthopedic Surgery - Has had cervical spine surgery, r Knee Replacement, Hx Vascular Surgery - removal of DVTs in legs, IVC filter placed - Immunizations Hx Diphtheria, Pertussis, Tetanus Vaccination: Yes Review of Systems - Review of Systems Constitutional: No symptoms reported EENT: No symptoms reported Cardiovascular: No symptoms reported Respiratory: No symptoms reported Gastrointestinal: See HPI Genitourinary: See HPI Male Genitourinary: No symptoms reported Musculoskeletal: No symptoms reported Skin: No symptoms reported Hematologic/Lymphatic: No symptoms reported Neurological/Psychological: No symptoms reported Physical Exam - Vital signs Vitals: Temp Pulse Resp BP Pulse Ox 98.0 F 70 20 196/112 H 97 03/08/19 01:23 03/08/19 01:23 03/08/19 01:03/08/19 01:03/08/19 01:23 - Notes Notes: GENERAL: Alert, mildly anxious but interactive and not in distress HEAD: Normocephalic, atraumatic. EYES: Pupils equal, round, and reactive to light. Extraocular movements intact. ENT: Oral mucosa moist, tongue midline. Oropharynx unremarkable. Airway patent. NECK: Full range of motion. Supple. Trachea midline. LUNGS: Clear to auscultation bilaterally, no wheezes, rales, or rhonchi. No respiratory distress. HEART: Regular rate and rhythm. No murmur ABDOMEN: Diffuse mild tenderness over the lower abdomen, no guarding or rigidity, upper abdomen is benign. GENITOURINARY: Deferred EXTREMITIES: Moves all 4 extremities spontaneously. No edema, normal radial and dorsalis pedis pulses bilaterally. No cyanosis. BACK: no cervical, thoracic, lumbar midline tenderness. No saddle anesthesia, normal distal neurovascular exam. Moves all extremities in full range of motion. NEUROLOGICAL: Alert and oriented x3. Normal speech. Cranial nerves II through XII grossly intact. PSYCH: Initially anxious but calmed down after conversation SKIN: Warm, dry, normal turgor. No rashes or lesions noted. Course - Re-evaluation Re-evalutation: Patient actually looks well, does not appear to be in distress. Vital signs unremarkable. No fever. No leukocytosis noted. Chronic thrombocytopenia noted without significant change. Kidney functioning is normal. Urinalysis questionable with indwelling stents. Patient did agree to a catheterized urine sample, this was cultured. Unfortunately this also appears infected and has white blood cell clumps but no bacteria or nitrites. I discussed with Dr. Roberts, will consult urology group where patient had the stents placed. 03/08/19 05:[address] Dai, urology on-call for [facility], he recommends placing patient on Bactrim and patient to be seen later in the office within short follow-up for likely ureteroscopy and stent removal hopefully. I did discuss this with patient, patient admits that he has not been in follow-up yet but he states that he will follow-up with for this additional management. I discussed patient's lab findings, his recommendations, return precautions. Patient states satisfaction with the instructions, he states that he actually will follow-up for management and he states gratefulness for care. Stable time of discharge. - Vital Signs Vital signs: Temp Pulse Resp BP Pulse Ox 98.4 F 58 L 21 H 115/55 L 99 03/08/19 04:40 03/08/19 04:40 03/08/19 04:40 03/08/19 04:40 03/08/19 04:40 - Laboratory Result Diagrams: 03/08/19 03:05 03/08/19 03:05 Laboratory results interpreted by me: 03/08/19 03/08/19 03/08/19 01:19 03:05 03:05 RBC 3.80 L Hgb 12.7 L Hct 36.3 L RDW 15.2 H Plt Count 49 L Monocytes % 14.6 H Chloride 114 H Urine Protein 100 H Urine Blood LARGE H Urine Urobilinogen 2.0 H Ur Leukocyte Esterase MODERATE H Urine Ascorbic Acid 20 H 03/08/19 03:10 RBC Hgb Hct RDW Plt Count Monocytes % Chloride Urine Protein 100 H Urine Blood LARGE H Urine Urobilinogen 2.0 H Ur Leukocyte Esterase LARGE H Urine Ascorbic Acid 20 H Discharge - Discharge Clinical Impression: Hematuria Qualifiers: Hematuria type: unspecified type Qualified Code(s): R31.9 - Hematuria, u nspecified Abdominal pain Qualifiers: Abdominal location: lower abdomen, unspecified Qualified Code(s): R10.30 - Lower abdominal pain, unspecified Condition: Stable Disposition: HOME, SELF-CARE Additional Instructions: Your urine shows possible developing infection but this is not definite. We have a culture pending. I spoke with Dr. Dai, he recommends Bactrim antibiotic, urine culture, and close follow-up in their office for additional management. Return if you worsen including vomiting, fever of 100.4 greater, increased pain, or any other concerning symptoms. Prescriptions: Sulfamethoxazole/Trimethoprim [Bactrim Ds Tablet] 1 each PO BID #14 tablet Referrals: STEVEN VILLALOBOS MD [Primary Care Provider] - Follow up as needed
[2019-03-08 03:32] LABS: ABSOLUTE EOSINOPHILS # (AUTO) 0.2 10^3/uL (0.0-0.6); ABSOLUTE LYMPHOCYTES (AUTO) 1.2 10^3/uL (0.5-4.7); ABSOLUTE MONOCYTES (AUTO) 0.6 10^3/uL (0.1-1.4); ABSOLUTE NEUT (AUTO) 2.1 10^3/uL (1.7-8.2); BASOPHILS % (AUTO) 0.4 % (0-2); EOSINOPHILS % (AUTO) 4.9 % (0-6); HEMATOCRIT 36.3 % (37.9-51.0); HEMOGLOBIN 12.7 g/dL (13.5-17.0); MEAN CORPUSCULAR HEMOGLOBIN 33.3 pg (27.0-33.4); MEAN CORPUSCULAR HGB CONC 34.8 g/dL (32.0-36.0); MEAN CORPUSCULAR VOLUME 96 fl (80-97); MONOCYTES % (AUTO) 14.6 % (3-13); RED CELL DISTRIBUTION WIDTH 15.2 % (11.5-14.0); SEGMENTED NEUTROPHILS % (AUTO) 50.1 % (42-78); TOTAL CELLS COUNTED % (AUTO) 100 %; WHITE BLOOD COUNT 4.2 10^3/uL (4.0-10.5)
[2019-03-08 03:35] LABS: PLATELET COUNT 49 10^3/uL (150-450)
[2019-03-08 03:42] LABS: APPEARANCE,URINE CLOUDY; BILIRUBIN,URINE NEGATIVE (NEGATIVE); COLOR,URINE AMBER; GLUCOSE, URINE NEGATIVE (NEGATIVE); KETONES,URINE NEGATIVE (NEGATIVE); LEUKOCYTE ESTERASE,URINE LARGE (NEGATIVE); NITRITE,URINE NEGATIVE (NEGATIVE); PROTEIN,URINE 100 mg/dL (NEGATIVE); URINE SPECIFIC GRAVITY 1.019
[2019-03-08 03:50] LABS: ANION GAP 5 (5-19); BLOOD UREA NITROGEN 12 mg/dL (7-20); CALCIUM 8.7 mg/dL (8.4-10.2); CARBON DIOXIDE 23 mmol/L (22-30); CHLORIDE 114 mmol/L (98-107); GLUCOSE 86 mg/dL (75-110); POTASSIUM 3.7 mmol/L (3.6-5.0); SODIUM 142.3 mmol/L (137-145)
[2019-03-08 04:43] VITALS: BP 115/55
[2019-03-08] MEDS ORDERED: SULFAMETHOXAZOLE/TRIMETHOPRIM 800-160 MG TABLET PO ONE (05:03)
[2019-03-08] MEDS ORDERED: HYDROCODONE/ACETAMINOPHEN 5-325 MG (6 TAB/ER DISP) PO PRN (05:03)
== END 2019-03-08 05:25 | disposition home or self-care (01) ==
LOC: ER 01:18
DX: R31.9 Hematuria, unspecified (principal); R10.30 Lower abdominal pain, unspecified; E78.00 Pure hypercholesterolemia, unspecified; I10 Essential (primary) hypertension; Z86.73 Personal history of transient ischemic attack (TIA), and cerebral infarction without residual deficits; Z88.3 Allergy status to other anti-infective agents; Z88.6 Allergy status to analgesic agent; Z86.718 Personal history of other venous thrombosis and embolism; Z87.442 Personal history of urinary calculi; Z90.49 Acquired absence of other specified parts of digestive tract; Z96.651 Presence of right artificial knee joint
CPT/HCPCS: 99283; 96374; 96375; 36415; 87086; 85025; 80048; 81001; J2270; J2405; A9270 ×2

== ENCOUNTER 2019-03-22 16:19 | Emergency (ER) | payer MEDICARE ==
[2019-03-22] MEDS ORDERED: MORPHINE SULFATE 10 MG/ML INJ IV ONE (16:31)
--- NOTE | 2019-03-22 16:33 | ER Document Report ---
ED Medical Screen (RME) - General Chief Complaint: Flank Pain Stated Complaint: POSSIBLE KIDNEY STONE Time Seen by Provider: 03/22/19 16:27 Primary Care Provider: STEVEN VILLALOBOS MD [Primary Care Provider] - Follow up as needed Mode of Arrival: Ambulatory Information source: Patient Notes: Patient has a history of bilateral kidney stones with stent placement. Patient complains of hematuria flank pain for the past 6 weeks that is worsened. Patient denies any nausea vomiting or fever. Patient states that he has low platelets and his urologist does not know what to do with him at this time. I have greeted and performed a rapid initial assessment of this patient. A comprehensive ED assessment and evaluation of the patient, analysis of test results and completion of the medical decision making process will be conducted by additional ED providers. TRAVEL OUTSIDE OF THE [place] IN LAST 30 DAYS: No - Related Data Allergies/Adverse Reactions: erythromycin base Allergy (Verified 03/22/19 16:20) hydromorphone [From Dilaudid] Adverse Reaction (Verified 03/22/19 16:20) palpations ketorolac [From Toradol] Adverse Reaction (Verified 03/22/19 16:20) Past Medical History - Social History Chew tobacco use (# tins/day): No Drug Abuse: None - Past Medical History Cardiac Medical History: Reports: Hx DVT, Hx Hypercholesterolemia, Hx Hypertension Neurological Medical History: Reports: Hx Cerebrovascular Accident - TIA Renal/ Medical History: Reports: Hx Kidney Stones. Denies: Hx Peritoneal Dialysis GI Medical History: Reports: Hx Hepatitis - History of hepatitis C. He has had treatment. Musculoskeltal Medical History: Reports Hx Arthritis Infectious Medical History: Reports: Hx Hepatitis - History of hepatitis C. He has had treatment. Past Surgical History: Reports: Hx Abdominal Surgery - hernia, Hx Appendectomy, Hx Cholecystectomy, Hx Kidney (Renal Surgery) - kidney stones, Hx Orthopedic Surgery - Has had cervical spine surgery, r Knee Replacement, Hx Vascular Surgery - removal of DVTs in legs, IVC filter placed - Immunizations Hx Diphtheria, Pertussis, Tetanus Vaccination: Yes Physical Exam - Vital signs Vitals: Temp Pulse Resp BP Pulse Ox 98 F 83 30 H 152/74 H 97 03/22/19 16:23 03/22/19 16:23 03/22/19 16:23 03/22/19 16:23 03/22/19 16:23 - Back Back: CVA tenderness - Bilateral Course - Vital Signs Vital signs: Temp Pulse Resp BP Pulse Ox 98 F 83 30 H 152/74 H 97 03/22/19 16:23 03/22/19 16:23 03/22/19 16:23 03/22/19 16:23 03/22/19 16:23 Doctor's Discharge - Discharge Referrals: STEVEN VILLALOBOS MD [Primary Care Provider] - Follow up as needed
[2019-03-22 17:04] LABS: APPEARANCE,URINE CLOUDY; BILIRUBIN,URINE NEGATIVE (NEGATIVE); COLOR,URINE AMBER; GLUCOSE, URINE NEGATIVE (NEGATIVE); KETONES,URINE TRACE mg/dL (NEGATIVE); LEUKOCYTE ESTERASE,URINE MODERATE (NEGATIVE); NITRITE,URINE POSITIVE (NEGATIVE); PROTEIN,URINE 100 mg/dL (NEGATIVE); URINE SPECIFIC GRAVITY 1.021
[2019-03-22 17:21] LABS: ABSOLUTE LYMPHOCYTES (AUTO) 0.9 10^3/uL (0.5-4.7); ABSOLUTE MONOCYTES (AUTO) 0.8 10^3/uL (0.1-1.4); ABSOLUTE NEUT (AUTO) 4.6 10^3/uL (1.7-8.2); BASOPHILS % (AUTO) 0.1 % (0-2); EOSINOPHILS % (AUTO) 0.1 % (0-6); HEMATOCRIT 34.6 % (37.9-51.0); HEMOGLOBIN 12.3 g/dL (13.5-17.0); LYMPHOCYTES % (AUTO) 14.1 % (13-45); MEAN CORPUSCULAR HEMOGLOBIN 33.5 pg (27.0-33.4); MEAN CORPUSCULAR HGB CONC 35.5 g/dL (32.0-36.0); MEAN CORPUSCULAR VOLUME 94 fl (80-97); MONOCYTES % (AUTO) 12.7 % (3-13); RED BLOOD COUNT 3.68 10^6/uL (4.35-5.55); RED CELL DISTRIBUTION WIDTH 14.5 % (11.5-14.0); TOTAL CELLS COUNTED % (AUTO) 100 %; WHITE BLOOD COUNT 6.3 10^3/uL (4.0-10.5)
[2019-03-22 17:38] LABS: PLATELET COUNT 33 10^3/uL (150-450)
[2019-03-22 17:40] LABS: ANION GAP 6 (5-19); BLOOD UREA NITROGEN 12 mg/dL (7-20); CALCIUM 8.4 mg/dL (8.4-10.2); CARBON DIOXIDE 23 mmol/L (22-30); CHLORIDE 108 mmol/L (98-107); GLUCOSE 91 mg/dL (75-110); POTASSIUM 3.7 mmol/L (3.6-5.0); SODIUM 137.3 mmol/L (137-145)
--- NOTE | 2019-03-22 19:20 | ER Document Report ---
ED General - General Chief Complaint: Flank Pain Stated Complaint: POSSIBLE KIDNEY STONE Time Seen by Provider: 03/22/19 16:27 Primary Care Provider: STEVEN VILLALOBOS MD [Primary Care Provider] - Follow up as needed Mode of Arrival: Ambulatory Notes: Patient is a 58-year-old male history of hepatitis C, liver cirrhosis and chronic thrombocytopenia presents to the emergency department for bilateral flank pain. Patient states he has a recurrent history of kidney stones. States he was seen at [facility] and had bilateral stents placed approximately 6 weeks ago. In reviewing past charts patient has been here multiple times for the same complaint. Last was here on 03/08/2019. Was given a 7-day course of Bactrim as recommended by urologist at [facility]. Patient states he called [facility] and has a follow-up appointment on March 29. States he was feeling better with Bactrim treatment but then in the last 24 hours developed some generalized dysuria and bilateral flank pain which is why he presents to the emergency room. Patient states he does have a prescription for Percocet has been taking as prescribed. States it is "not helping." Patient's denying any fevers or change in his constant chronic pain. States "it feels like it usually always does." TRAVEL OUTSIDE OF THE [place] IN LAST 30 DAYS: No - Related Data Allergies/Adverse Reactions: erythromycin base Allergy (Verified 03/22/19 16:20) hydromorphone [From Dilaudid] Adverse Reaction (Verified 03/22/19 16:20) palpations ketorolac [From Toradol] Adverse Reaction (Verified 03/22/19 16:20) Past Medical History - General Information source: Patient - Social History Smoking Status: Current Every Day Smoker Chew tobacco use (# tins/day): No Drug Abuse: None Family History: Reviewed & Not Pertinent Patient has suicidal ideation: No Patient has homicidal ideation: No - Past Medical History Cardiac Medical History: Reports: Hx DVT, Hx Hypercholesterolemia, Hx Hypert ension Neurological Medical History: Reports: Hx Cerebrovascular Accident - TIA Renal/ Medical History: Reports: Hx Kidney Stones. Denies: Hx Peritoneal Dialysis GI Medical History: Reports: Hx Hepatitis - History of hepatitis C. He has had treatment. Musculoskeletal Medical History: Reports Hx Arthritis Infectious Medical History: Reports: Hx Hepatitis - History of hepatitis C. He has had treatment. Past Surgical History: Reports: Hx Abdominal Surgery - hernia, Hx Appendectomy, Hx Cholecystectomy, Hx Kidney (Renal Surgery) - kidney stones, Hx Orthopedic Surgery - Has had cervical spine surgery, r Knee Replacement, Hx Vascular Surgery - removal of DVTs in legs, IVC filter placed - Immunizations Hx Diphtheria, Pertussis, Tetanus Vaccination: Yes Review of Systems - Review of Systems Constitutional: denies: Fever EENT: No symptoms reported Cardiovascular: No symptoms reported Respiratory: No symptoms reported Gastrointestinal: See HPI Genitourinary: See HPI Male Genitourinary: See HPI Musculoskeletal: See HPI Skin: No symptoms reported Hematologic/Lymphatic: See HPI Neurological/Psychological: No symptoms reported Physical Exam - Vital signs Vitals: Temp Pulse Resp BP Pulse Ox 98 F 83 30 H 152/74 H 97 03/22/19 16:23 03/22/19 16:23 03/22/19 16:23 03/22/19 16:23 03/22/19 16:23 - Notes Notes: GENERAL: Alert, interacts well. No acute distress. HEAD: Normocephalic, atraumatic. EYES: Pupils equal, round, and reactive to light. Extraocular movements intact. ENT: Oral mucosa moist, tongue midline. NECK: Full range of motion. Supple. Trachea midline. LUNGS: Clear to auscultation bilaterally, no wheezes, rales, or rhonchi. No respiratory distress. HEART: Regular rate and rhythm. No murmur ABDOMEN: Soft, non-tender. Non-distended. Bowel sounds present in all 4 quadrants. No pelvic pain noted bilaterally. EXTREMITIES: Moves all 4 extremities spontaneously. No edema, normal radial and dorsalis pedis pulses bilaterally. No cyanosis. BACK: no cervical, thoracic, lumbar midline tenderness. No saddle anesthesia, normal distal neurovascular exam. Minimal bilateral flank pain noted. NEUROLOGICAL: Alert and oriented x3. Normal speech. cranial nerves II through XII grossly intact PSYCH: Normal affect, normal mood. SKIN: Warm, dry, normal turgor. No rashes or lesions noted. Course - Re-evaluation Re-evalutation: 03/22/19 19:05 I have paged [facility] in order to talk to urology. Currently awaiting a return phone call. 03/22/19 20:09 I discussed this case with the urologist Dr. Marie. He suggests placing the patient on Keflex and continue to have the follow-up on March 29. I had added liver function testing on to patient's initial labs that were ordered in [facility]. Patient does appear to havesome scleral icterus. Patient's bilirubin is noted to be 3.6. He does have a history of hepatitis C chronic liver cirrhosis. This is higher than his bilirubin has ever been at our facility. Patient is stating he has a history of a cholecystectomy and an appendectomy. I discussed these results with patient at bedside. I discussed my concerns and that I am going to reach out to gastroenterology for continued care. Patient states "I cannot stay here." Patient states he has a family emergency and cannot stay in the emergency room or get admitted. I discussed at length with patient's need for me to consult gastroenterology for potential admission due to an increase in his bilirubin. I also discussed that if he leaves the hospital he may . Patient voices understanding and signs AGAINST MEDICAL ADVICE paperwork. - Vital Signs Vital signs: Temp Pulse Resp BP Pulse Ox 98.8 F 81 20 149/93 H 99 03/22/19 20:24 03/22/19 20:24 03/22/19 20:24 03/22/19 20:24 03/22/19 20:24 - Laboratory Result Diagrams: 03/22/19 16:40 03/22/19 16:40 Laboratory results interpreted by me: 03/22/19 03/22/19 03/22/19 16:25 16:25 16:40 RBC 3.68 L Hgb 12.3 L Hct 34.6 L MCH 33.5 H RDW 14.5 H Plt Count 33 L Chloride Total Bilirubin 3.6 H Direct Bilirubin 1.2 H AST 172 H ALT 86 H Total Protein 5.8 L Albumin 2.9 L Urine Protein 100 H Urine Ketones TRACE H Urine Blood LARGE H Urine Nitrite POSITIVE H Urine Urobilinogen 4.0 H Ur Leukocyte Esterase MODERATE H 03/22/19 16:40 RBC Hgb Hct MCH RDW Plt Count Chloride 108 H Total Bilirubin Direct Bilirubin AST ALT Total Protein Albumin Urine Protein Urine Ketones Urine Blood Urine Nitrite Urine Urobilinogen Ur Leukocyte Esterase Discharge - Discharge Clinical Impression: Bilirubinemia Urinary tract infection Qualifiers: Urinary tract infection type: acute pyelonephritis Qualified Code(s): N10 - Acute pyelonephritis Condition: Poor Disposition: AGAINST MEDICAL ADVICE Instructions: Cephalexin ([facility]), Urinary Tract Infection ([facility]) Additional Instructions: As we discussed you have been seen and treated in the emergency department for your chronic back pain related to your kidney stones. Your urine also showed signs of infection. Please make sure you take antibiotics as prescribed. Please also make sure you continue to follow-up with urology on March 29. Also as we discussed your bilirubin is elevated. This could be an indication that you were having worsening function of your liver. It is my suggestion that you stay in the hospital and you are leaving AGAINST MEDICAL ADVICE. You have voiced understanding that by leaving AGAINST MEDICAL ADVICE you could . Prescriptions: RX: Cephalexin Monohydrate [Keflex 500 mg Capsule] 500 mg PO BID 7 Days #14 capsule Referrals: STEVEN VILLALOBOS MD [Primary Care Provider] - Follow up as needed
[2019-03-22] MEDS ORDERED: PHENAZOPYRIDINE HCL 200 MG TABLET PO ONE (19:28)
[2019-03-22] MEDS ORDERED: NORMAL SALINE 1000 ML 1,000 ML IV ONE (19:28)
[2019-03-22 19:31] LABS: ALANINE AMINOTRANSFERASE 86 U/L (21-72); ALBUMIN 2.9 g/dL (3.5-5.0); ALKALINE PHOSPHATASE 73 U/L (38-126); ASPARTATE AMINO TRANSFERASE 172 U/L (17-59); BILIRUBIN,DIRECT 1.2 mg/dL (0.0-0.4); BILIRUBIN,TOTAL 3.6 mg/dL (0.2-1.3); TOTAL PROTEIN 5.8 g/dL (6.3-8.2)
[2019-03-22] MEDS ORDERED: HYDROCODONE/ACETAMINOPHEN 5-325 MG (6 TAB/ER DISP) PO PRN (20:12)
[2019-03-22] MEDS ORDERED: CEPHALEXIN 500 MG CAPSULE PO ONE (20:12)
[2019-03-22 20:49] VITALS: BP 149/93
== END 2019-03-22 20:35 | disposition left against medical advice (07) ==
LOC: ER 16:19
DX: N10 Acute pyelonephritis (principal); E80.6 Other disorders of bilirubin metabolism; R10.9 Unspecified abdominal pain; F17.200 Nicotine dependence, unspecified, uncomplicated; E78.00 Pure hypercholesterolemia, unspecified; I10 Essential (primary) hypertension; Z86.718 Personal history of other venous thrombosis and embolism; Z86.73 Personal history of transient ischemic attack (TIA), and cerebral infarction without residual deficits; Z87.442 Personal history of urinary calculi; Z86.19 Personal history of other infectious and parasitic diseases; Z88.3 Allergy status to other anti-infective agents
CPT/HCPCS: 99284; 96374; 36415; 87086; 83690; 85025; 87088; 80076; 80048; 81001; A9270 ×3; J2270; J3490

== ENCOUNTER 2019-05-01 11:14 | Emergency (ER) | payer MEDICARE ==
[2019-05-01] MEDS ORDERED: OXYCODONE-ACETAMINOPHEN 5-325 MG TABLET PO ONE (11:34)
--- NOTE | 2019-05-01 11:52 | RADIOLOGY REPORT (SQ) ---
EXAM DESCRIPTION: CERV SP 4 OR 5 VIEWS COMPLETED DATE/TIME: 05/01/2019 11:43 am REASON FOR STUDY: neck pain, hx surgery COMPARISON: None. NUMBER OF VIEWS: Five views. TECHNIQUE: AP, lateral, obliques and odontoid radiographic images acquired of the cervical spine. LIMITATIONS: None. FINDINGS: MINERALIZATION: Normal. ALIGNMENT: Anatomic. VERTEBRAE: Vertebral bodies of normal height. DISCS: Disc space narrowing with osteophytes at C5-C6 and C6-C7. FORAMINA: Foraminal narrowing due to osteophytes at C5-C6 and C6-C7. LATERAL AND POSTERIOR ELEMENTS: Facets, lateral masses and spinous processes without significant find ings. HARDWARE: None in the spine. SOFT TISSUES: No masses or calcifications. Lung apices clear. OTHER: No other significant finding. IMPRESSION: DEGENERATIVE DISC DISEASE IN THE LOWER CERVICAL SPINE. NO ACUTE FINDINGS. TECHNICAL DOCUMENTATION: JOB ID: [id number] [employer]- All Rights Reserved Reading location - IP/workstation name: [email or web address]
--- NOTE | 2019-05-01 12:16 | ER Document Report ---
HPI - HPI Patient complains to provider of: Neck pain Time Seen by Provider: 05/01/19 11:26 Onset: Other Onset/Duration: Persistent Quality of pain: Achy Severity: Severe Pain Level: 5 Context: This 58-year-old male presents emergency department with complaints of neck pain for the past 3 weeks. Reports his pump being feels like it is [id number]. Reports both his hands are swollen his left shoulder hurts his left arm hurts. Patient was evaluated here several weeks ago for the same pain reports it has not gotten any better. Patient is also a patient of Dr. Dickinson. He was treated for his history of kidney stones with Percocet tens couple weeks ago. Patient reports he took his last Percocet 10 is now hurting again. Patient has history of PTSD and reports that his comfort dog recently from heatstroke. Patient reports he is homeless. He reports him and his are living in their car or at hotels. He is ready to go back to [place] from where his come from. Patient denies fever vomiting nausea diarrhea. Denies shortness of birdbath. Reports he is just hurting. Patient is very emotional. Associated Symptoms: None Exacerbated by: Movement Relieved by: Denies Similar symptoms previously: Yes Recently seen / treated by doctor: Yes - CONSTITUTIONAL Constitutional: DENIES: Fever, Chills - REPRODUCTIVE Reproductive: DENIES: : Past Medical History - General Information source: Patient - Social History Smoking Status: Current Every Day Smoker Cigarette use (# per day): Yes Frequency of alcohol use: None Drug Abuse: None Lives with: Family - homeless Family History: Reviewed & Not Pertinent Patient has suicidal ideation: No Patient has homicidal ideation: No - Past Medical History Cardiac Medical History: Reports: Hx DVT, Hx Hypercholesterolemia, Hx Hypertension Neurological Medical History: Reports: Hx Cerebrovascular Accident - TIA Renal/ Medical History: Reports: Hx Kidney Stones. Denies: Hx Peritoneal Dialysis GI Medical History: Reports: Hx Hepatitis - History of hepatitis C. He has had treatment. Musculoskeletal Medical History: Reports Hx Arthritis Infectious Medical History: Reports: Hx Hepatitis - History of hepatitis C. He has had treatment. Past Surgical History: Reports: Hx Abdominal Surgery - hernia, Hx Appendectomy, Hx Cholecystectomy, Hx Kidney (Renal Surgery) - kidney stones, Hx Orthopedic Surgery - Has had cervical spine surgery, r Knee Replacement, Hx Vascular Surgery - removal of DVTs in legs, IVC filter placed - Immunizations Hx Diphtheria, Pertussis, Tetanus Vaccination: Yes Vertical Provider Document - CONSTITUTIONAL Agree With Documented VS: Yes Exam Limitations: No Limitations General Appearance: WD/WN, Mild Distress - tearful - INFECTION CONTROL TRAVEL OUTSIDE OF THE [place] IN LAST 30 DAYS: No - HEENT HEENT: Atraumatic, Normocephalic - NECK Neck: Normal Inspection, Supple, Other - reports ttp on left side of neck, no erythema no warmth patient able to move head side to side without problems. Chin to chest without problems. negative: Lymphadenopathy-Left, Lymphadenopathy-Right - RESPIRATORY Respiratory: Breath Sounds Normal, No Respiratory Distress - CARDIOVASCULAR Cardiovascular: Regular Rate - GI/ABDOMEN Gastrointestinal: Abdomen Soft - MUSCULOSKELETAL/EXTREMETIES Musculoskeletal/Extremeties: MAEW, FROM, Tender - No obvious swelling noted to his hands. Patient has good range of motion complains of some tenderness with palpation to his left shoulder. - NEURO Level of Consciousness: Awake, Alert, Appropriate Motor/Sensory: No Motor Deficit - DERM Integumentary: Warm, Dry, No Rash Course - Re-evaluation Re-evalutation: 05/01/19 12:13 This 58-year-old male with complaints of neck pain. Has history of neck surgery twice. He reports his neck started hurting 3 weeks ago he has noted popping euoa-sy-defa. Denies trauma. Reports it feels like both hands are swollen his left shoulder and left arm hurting. Patient very emotional reports his comfort dog recently from heatstroke. Reports he is homeless living in his current hotels because he was kicked out of his trailer. Patient does have a primary care provider Dr. Villalobos and has an appointment with him on Thursday. X-ray of his neck is negative degenerative disease noted. Patient will be instructed to follow-up with Dr. Villalobos on Thursday for any type of pain medication in the meantime take Tylenol Motrin for his pain. The patient agreed with the plan of care. Cervical Spine X-Ray 05/01/19 11:34 IMPRESSION: DEGENERATIVE DISC DISEASE IN THE LOWER CERVICAL SPINE. NO ACUTE FINDINGS. - Vital Signs Vital signs: Temp Pulse Resp BP Pulse Ox 98.0 F 74 16 155/80 H 98 05/01/19 11:18 05/01/19 11:18 05/01/19 11:18 05/01/19 11:18 05/01/19 11:18 - Diagnostic Test Radiology reviewed: Image reviewed, Reports reviewed Discharge - Discharge Clinical Impression: Chronic neck pain Cervical strain Qualifiers: Encounter type: sequela Qualified Code(s): S16.1XXS - Strain of muscle, fascia and tendon at neck level, sequela Condition: Stable Disposition: HOME, SELF-CARE Instructions: Use of [id number]-Mln-Rozcnbh Ibuprofen ([facility]), Ice Packs ([facility]) Additional Instructions: *You have been evaluated for neck pain *Take motrin as indicated *Follow up with Dr Villalobos Thursday as indicated *Return to ED for worsening condition, changes, needs Referrals: STEVEN VILLALOBOS MD [Primary Care Provider] - 05/06/19
[2019-05-01 12:22] VITALS: BP 148/88
== END 2019-05-01 12:28 | disposition home or self-care (01) ==
LOC: ER 11:14
DX: S16.1XXS Strain of muscle, fascia and tendon at neck level, sequela (principal); M54.2 Cervicalgia; M25.512 Pain in left shoulder; M79.602 Pain in left arm; X58.XXXS Exposure to other specified factors, sequela; Z79.899 Other long term (current) drug therapy; Z59.0 Homelessness; F17.210 Nicotine dependence, cigarettes, uncomplicated; I10 Essential (primary) hypertension
CPT/HCPCS: 99283; 72050; A9270

== ENCOUNTER 2019-05-07 13:31 | Emergency (ER) | payer MEDICARE ==
--- NOTE | 2019-05-07 14:20 | EKG REPORT ---
SEVERITY:- NORMAL ECG - SINUS RHYTHM : Confirmed by: Marcus Kendall MD 07-May-2019 14:19:17
[2019-05-07 14:40] LABS: ABSOLUTE EOSINOPHILS # (AUTO) 0.1 10^3/uL (0.0-0.6); ABSOLUTE LYMPHOCYTES (AUTO) 1.1 10^3/uL (0.5-4.7); ABSOLUTE MONOCYTES (AUTO) 0.5 10^3/uL (0.1-1.4); ABSOLUTE NEUT (AUTO) 3.4 10^3/uL (1.7-8.2); BASOPHILS % (AUTO) 0.3 % (0-2); EOSINOPHILS % (AUTO) 1.2 % (0-6); HEMATOCRIT 35.1 % (37.9-51.0); HEMOGLOBIN 12.2 g/dL (13.5-17.0); LYMPHOCYTES % (AUTO) 21.8 % (13-45); MEAN CORPUSCULAR HGB CONC 34.8 g/dL (32.0-36.0); MEAN CORPUSCULAR VOLUME 95 fl (80-97); MONOCYTES % (AUTO) 10.5 % (3-13); RED CELL DISTRIBUTION WIDTH 14.8 % (11.5-14.0); SEGMENTED NEUTROPHILS % (AUTO) 66.2 % (42-78); TOTAL CELLS COUNTED % (AUTO) 100 %; WHITE BLOOD COUNT 5.2 10^3/uL (4.0-10.5)
[2019-05-07 14:50] LABS: APPEARANCE,URINE CLOUDY; BILIRUBIN,URINE NEGATIVE (NEGATIVE); COLOR,URINE AMBER; GLUCOSE, URINE NEGATIVE (NEGATIVE); KETONES,URINE NEGATIVE (NEGATIVE); LEUKOCYTE ESTERASE,URINE MODERATE (NEGATIVE); NITRITE,URINE NEGATIVE (NEGATIVE); PROTEIN,URINE 100 mg/dL (NEGATIVE); URINE SPECIFIC GRAVITY 1.013; UROBILINOGEN,URINE NEGATIVE mg/dL (<2.0)
[2019-05-07 14:51] LABS: ALBUMIN 3.2 g/dL (3.5-5.0); ALKALINE PHOSPHATASE 82 U/L (38-126); ANION GAP 7 (5-19); ASPARTATE AMINO TRANSFERASE 53 U/L (17-59); BILIRUBIN,DIRECT 0.3 mg/dL (0.0-0.4); BILIRUBIN,TOTAL 1.6 mg/dL (0.2-1.3); BLOOD UREA NITROGEN 9 mg/dL (7-20); CALCIUM 9.8 mg/dL (8.4-10.2); CARBON DIOXIDE 22 mmol/L (22-30); CHLORIDE 110 mmol/L (98-107); GLUCOSE 119 mg/dL (75-110); POTASSIUM 3.6 mmol/L (3.6-5.0); TOTAL PROTEIN 6.3 g/dL (6.3-8.2)
--- NOTE | 2019-05-07 14:52 | ER Document Report ---
ED GI/ - General Chief Complaint: Flank Pain Stated Complaint: FLANK PAIN Time Seen by Provider: 05/07/19 14:06 Primary Care Provider: STEVEN VILLALOBOS MD [Primary Care Provider] - Follow up as needed Mode of Arrival: Medic Information source: Patient, Emergency Med Personnel, [facility] Records Notes: This 58-year-old male patient comes emergency room complaining of right abdomen pain, right flank pain, right low back pain. This is been a chronic problem for several weeks to months. He also complains of hematuria for greater than 1 month. He was seen here 6 days ago complaining of neck pain, did not get narcotics prescribed, went to the emergency room in [place], where he was prescribed Toradol, Robaxin, and prednisone. 2 days later he went to see his primary care provider on 05/03/2019 and was prescribed oxycodone 10 mg number 60 tablets. Was also put on a 10-day course of Cipro. Patient complains of a burning sensation at the urethral meatus which is present with and without urinating. The patient does have chronic thrombocytopenia which is contributing to his hematuria. The patient did come to the emergency room by the [facility] system today, although he states that his discomfort and symptoms are no different than they have been for quite some time. EMS did give him fentanyl 50 mcg twice IV in route. When asked about following up with the urologist that placed the ureteral stents on about 02/08/2019 in [place], he states that he will not go back to see the doctor because that doctor told him that he did not know how to treat his problem. When asked about [facility], he states he called them and states the doctor said that they would not see him. When asked about his visits to the emergency room in [place], he states they just said they would need to transfer him to [facility] or [place]. The patient has been to this emergency room multiple times since he first came in July 2016. He has come here for multiple different pain management issues. TRAVEL OUTSIDE OF THE [place] IN LAST 30 DAYS: No - Related Data Allergies/Adverse Reactions: erythromycin base Allergy (Verified 05/01/19 11:14) hydromorphone [From Dilaudid] Adverse Reaction (Verified 05/01/19 11:14) palpations ketorolac [From Toradol] Adverse Reaction (Verified 05/01/19 11:14) Past Medical History - General Information source: Patient, Emergency Med Personnel, [facility] Records - Social History Smoking Status: Current Every Day Smoker Cigarette use (# per day): Yes Chew tobacco use (# tins/day): No Frequency of alcohol use: None Drug Abuse: None Lives with: Spouse/Significant other Family History: Reviewed & Not Pertinent Patient has suicidal ideation: No Patient has homicidal ideation: No - Past Medical History Cardiac Medical History: Reports: Hx DVT, Hx Hypercholesterolemia, Hx Hypertension Neurological Medical History: Reports: Hx Cerebrovascular Accident - TIA Renal/ Medical History: Reports: Hx Kidney Stones GI Medical History: Reports: Hx Hepatitis - History of hepatitis C. He has had treatment. Musculoskeletal Medical History: Reports Hx Arthritis Infectious Medical History: Reports: Hx Hepatitis - History of hepatitis C. He has had treatment. Past Surgical History: Reports: Hx Abdominal Surgery - hernia, Hx Appendectomy, Hx Cholecystectomy, Hx Kidney (Renal Surgery) - kidney stones, bilateral ureteral stents on 02/08/2019, Hx Orthopedic Surgery - Has had cervical spine surgery, r Knee Replacement, Hx Vascular Surgery - removal of DVTs in legs, IVC filter placed - Immunizations Hx Diphtheria, Pertussis, Tetanus Vaccination: Yes Review of Systems - Review of Systems Constitutional: No symptoms reported EENT: No symptoms reported Cardiovascular: No symptoms reported Respiratory: No symptoms reported Gastrointestinal: Abdominal pain Genitourinary: See HPI, Burning, Dysuria, Flank pain Musculoskeletal: Back pain Hematologic/Lymphatic: No symptoms reported Neurological/Psychological: No symptoms reported Physical Exam - Vital signs Vitals: Temp Resp BP Pulse Ox 98.0 F 17 165/91 H 100 05/07/19 13:45 05/07/19 13:45 05/07/19 13:45 05/07/19 13:45 Interpretation: Hypertensive - General General appearance: Appears well, Alert In distress: None - HEENT Head: Normocephalic, Atraumatic Eyes: Normal Pupils: PERRL - Respiratory Respiratory status: No respiratory distress Breath sounds: Normal - Cardiovascular Rhythm: Regular Heart sounds: Normal auscultation Murmur: No - Abdominal Inspection: Normal Bowel sounds: Normal Tenderness: Tender - Right-sided abdominal tenderness - Back Back: Tender - Very tender to palpate the right lumbar back muscles. Less tender to palpate the left side. Also some minor tenderness to palpate the flank muscles. - Extremities General upper extremity: Normal inspection General lower extremity: Edema - Trace edema to the lower extremities - Neurological Neuro grossly intact: Yes - Psychological Associated symptoms: Normal affect, Normal mood - Skin Skin Temperature: Warm Skin Moisture: Dry Skin Color: Normal Course - Re-evaluation Re-evalutation: 05/07/19 16:02 The patient's presenting complaints are all chronic problems. The urine does appear to be infected, he was started on Cipro by his primary care provider for this. The urine will be cultured today. We advised to continue his regular medications including the pain medication he was prescribed a few days ago. He should follow-up with his primary care provider on Thursday to check on the urine culture results. He will be encouraged to follow-up with a urologist of his choosing. - Vital Signs Vital signs: Temp Pulse Resp BP Pulse Ox 98.0 F 17 165/91 H 100 05/07/19 13:45 05/07/19 13:45 05/07/19 13:45 05/07/19 13:45 - Laboratory Result Diagrams: 05/07/19 13:45 05/07/19 13:45 Laboratory results interpreted by me: 05/07/19 05/07/19 05/07/19 13:45 13:45 13:45 RBC 3.70 L Hgb 12.2 L Hct 35.1 L RDW 14.8 H Plt Count 44 L Chloride 110 H Glucose 119 H Total Bilirubin 1.6 H Albumin 3.2 L Lipase 337.0 H Urine Protein 100 H Urine Blood LARGE H Ur Leukocyte Esterase MODERATE H - EKG Interpretation by Wy EKG shows normal: Sinus rhythm, [place], Intervals, QRS Complexes, ST-T Waves Rate: Normal - 91 Rhythm: NSR Discharge - Discharge Clinical Impression: Lumbar back pain, Thrombocytopenia Hematuria Qualifiers: Hematuria type: unspecified type Qualified Code(s): R31.9 - Hematuria, unspecified Urinary tract infection Qualifiers: Urinary tract infection type: site unspecified Hematuria presence: with hematuria Qualified Code(s): N39.0 - Urinary tract infection, site not specified; R31.9 - Hematuria, unspecified Condition: Stable Disposition: HOME, SELF-CARE Additional Instructions: Low Back Pain Three out of every four people will have an episode of disabling back pain during their lifetime. Most commonly the pain is due to straining of the muscl es and ligaments in the low back. Usual treatment includes: (1) Rest on a firm surface. Avoid lying on your stomach. (2) Ice pack the painful area. After a few days, gentle heat may be used intermittently to relax the area, or ice packs can be continued. (3) Medication may be needed -- muscle relaxers and antiinflammatory medicines are commonly used. (4) As the back improves, exercises are prescribed to strengthen the back and abdominal muscles. Your doctor will advise you on the proper care for your back at each stage in your recovery. You may be better in a few days -- or healing may take several weeks. If new symptoms of a "herniated disc" (radiation of pain, numbness, or tingling down the back of the leg or weakness in the leg) occur, you should be re-examined. Further testing may be necessary. Urinary Tract Infection Your evaluation suggests that you MAY have a urinary tract infection. This is due to germs growing in the bladder. This is a common problem. This infection usually responds quickly to antibiotics. Your antibiotic should be taken exactly as prescribed. Drink plenty of fluids -- three to four quarts a day. Occasionally, a bladder anesthetic will be prescribed to help stop the feeling of urgency until the antibiotic has a chance to clear the infection. This may cause your urine to be dark orange. Certain urine infections require a culture. If the doctor obtained a culture, the results will be back in two days. You should call to see if a change in treatment is needed. A repeat urinalysis after you finish treatment is often recommended. The physician will let you know if further testing is required. Call the doctor if you develop fever, chills, flank pain, inability to urinate, or blood in the urine. The urine sample was cultured. You should drink plenty of fluids throughout the day in the evening every day. Continue the Cipro you were prescribed. Continue the pain medications you are prescribed if needed. Follow-up with your primary care provider Thursday to check on the urine culture results. Follow-up with a urologist of your choice to manage your urological problems. RETURN TO THE EMERGENCY ROOM IF ANY NEW OR WORSENING SYMPTOMS. Referrals: STEVEN VILLALOBOS MD [Primary Care Provider] - 05/09/19 Scribe Attestation: 05/07/19 16:05 I personally performed the services described in the documentation, reviewed and edited the documentation which was dictated to the scribe in my presence, and it accurately records my words and actions.
[2019-05-07 15:34] LABS: PLATELET COUNT 44 10^3/uL (150-450)
[2019-05-07 16:22] VITALS: BP 151/85
== END 2019-05-07 16:40 | disposition home or self-care (01) ==
LOC: ER 13:31
DX: D69.6 Thrombocytopenia, unspecified (principal); N39.0 Urinary tract infection, site not specified; R31.9 Hematuria, unspecified; M54.5 Low back pain; R10.9 Unspecified abdominal pain; F17.210 Nicotine dependence, cigarettes, uncomplicated; E78.00 Pure hypercholesterolemia, unspecified; I10 Essential (primary) hypertension; Z86.73 Personal history of transient ischemic attack (TIA), and cerebral infarction without residual deficits; Z86.718 Personal history of other venous thrombosis and embolism; Z87.442 Personal history of urinary calculi; Z86.19 Personal history of other infectious and parasitic diseases; Z88.3 Allergy status to other anti-infective agents; Z90.49 Acquired absence of other specified parts of digestive tract
CPT/HCPCS: 36415; 80053; 81001; 83690; 85025; 87086; 93005; 93010; 99284

== ENCOUNTER 2019-05-08 02:44 | Emergency (ER) | payer MEDICARE ==
[2019-05-08 03:28] LABS: APPEARANCE,URINE CLOUDY; BILIRUBIN,URINE NEGATIVE (NEGATIVE); COLOR,URINE AMBER; GLUCOSE, URINE NEGATIVE (NEGATIVE); KETONES,URINE NEGATIVE (NEGATIVE); LEUKOCYTE ESTERASE,URINE MODERATE (NEGATIVE); NITRITE,URINE NEGATIVE (NEGATIVE); PROTEIN,URINE 100 mg/dL (NEGATIVE); URINE SPECIFIC GRAVITY 1.017; UROBILINOGEN,URINE NEGATIVE mg/dL (<2.0)
[2019-05-08] MEDS ORDERED: FENTANYL CITRATE INJ/PF 100 MCG/2 ML AMPUL IV ONE (04:05)
[2019-05-08] MEDS ORDERED: PHENAZOPYRIDINE HCL 200 MG TABLET PO ONE (05:05)
[2019-05-08 05:06] LABS: ABSOLUTE EOSINOPHILS # (AUTO) 0.1 10^3/uL (0.0-0.6); ABSOLUTE LYMPHOCYTES (AUTO) 1.1 10^3/uL (0.5-4.7); ABSOLUTE MONOCYTES (AUTO) 0.5 10^3/uL (0.1-1.4); ABSOLUTE NEUT (AUTO) 2.4 10^3/uL (1.7-8.2); BASOPHILS % (AUTO) 0.3 % (0-2); EOSINOPHILS % (AUTO) 2.9 % (0-6); HEMATOCRIT 34.6 % (37.9-51.0); HEMOGLOBIN 11.9 g/dL (13.5-17.0); LYMPHOCYTES % (AUTO) 26.9 % (13-45); MEAN CORPUSCULAR HEMOGLOBIN 32.9 pg (27.0-33.4); MEAN CORPUSCULAR HGB CONC 34.5 g/dL (32.0-36.0); MEAN CORPUSCULAR VOLUME 95 fl (80-97); MONOCYTES % (AUTO) 11.8 % (3-13); RED BLOOD COUNT 3.62 10^6/uL (4.35-5.55); RED CELL DISTRIBUTION WIDTH 14.6 % (11.5-14.0); SEGMENTED NEUTROPHILS % (AUTO) 58.1 % (42-78); TOTAL CELLS COUNTED % (AUTO) 100 %; WHITE BLOOD COUNT 4.2 10^3/uL (4.0-10.5)
--- NOTE | 2019-05-08 05:10 | RADIOLOGY REPORT (SQ) ---
EXAM DESCRIPTION: CT ABDOMEN PELVIS WITHOUT IV CONTRAST COMPLETED DATE/TME: 05/08/2019 03:57 CLINICAL HISTORY: Bilateral flank pain. COMPARISON: 02/11/2019 TECHNIQUE: CT of the abdomen and pelvis without IV contrast. Evaluation of the solid organs and vasculature is suboptimal due to lack of IV contrast. DLP: 932.53 mGy-cm FINDINGS: Lung Bases: The visualized lung bases are clear. Bones: Degenerative change of the spine. Stable L1 compression deformity. Abdomen: Liver: Nodular contour of the liver. Portal collateral vessels identified. Interval development of 1.6 cm hypodense nodule in the right hepatic lobe best seen on image #11, series 3. Gallbladder: Prior cholecystectomy. Spleen, Pancreas, and Adrenal Glands: Splenomegaly. Edema in the upper abdominal mesentery adjacent to the pancreas and duodenum. Adrenal glands are unremarkable. Kidneys: Bilateral double-J ureteral stents. The right double-J ureteral stent is near the right UVJ with moderate right hydronephrosis. Nonobstructing 1.0 cm inferior pole right renal calculus. Vasculature: Aortoiliac atherosclerosis. Peripheral calcifications in the IVC of indeterminate etiology. Stomach: The stomach and duodenum have normal course. Other: No free intraperitoneal air. Mildly prominent periaortic lymph nodes. Pelvis: Bladder: Urinary bladder is otherwise unremarkable. Bowel: No dilated loops of large or small bowel. Appendix: Not identified. Pelvis: Prostate is not enlarged. IMPRESSION: 1. Bilateral double-J ureteral stents are stable in appearance however there is interval development of moderate right hydronephrosis. Correlation for stent function recommended. 2. Interval increase in size of inferior pole nonobstructing right renal calculus now measuring 1.0 cm. 3. Upper abdominal mesenteric edema is stable and may be related to portal hypertension. 4. Cirrhotic appearance of the liver with findings suggestive of portal hypertension including portal collaterals and splenomegaly. 5. Interval development of hypodense 1.6 cm nodule in the right hepatic lobe which is incompletely evaluated on this study. Correlation with multiphase hepatic CT recommended. This exam was performed according to our departmental dose-optimization program, which includes automated exposure control, adjustment of the mA and/or kV according to patient size and/or use of iterative reconstruction technique.
[2019-05-08 05:16] LABS: ALBUMIN 3.2 g/dL (3.5-5.0); ALKALINE PHOSPHATASE 82 U/L (38-126); ANION GAP 5 (5-19); ASPARTATE AMINO TRANSFERASE 55 U/L (17-59); BILIRUBIN,DIRECT 0.4 mg/dL (0.0-0.4); BILIRUBIN,TOTAL 1.3 mg/dL (0.2-1.3); BLOOD UREA NITROGEN 11 mg/dL (7-20); CALCIUM 9.8 mg/dL (8.4-10.2); CARBON DIOXIDE 26 mmol/L (22-30); CHLORIDE 109 mmol/L (98-107); GLUCOSE 115 mg/dL (75-110); POTASSIUM 3.2 mmol/L (3.6-5.0); TOTAL PROTEIN 6.4 g/dL (6.3-8.2)
[2019-05-08 05:21] LABS: PLATELET COUNT 50 10^3/uL (150-450)
[2019-05-08] MEDS ORDERED: POTASSIUM CHLORIDE 10 MEQ CAPSULE.ER PO ONE (05:46)
[2019-05-08] MEDS ORDERED: CEFTRIAXONE 1 GM/D5W RTU 1 GM/50 ML RTUPB IV ONE (05:51)
[2019-05-08] MEDS ORDERED: CEFTRIAXONE INJ 1000 MG VIAL ONE (06:02)
--- NOTE | 2019-05-08 06:25 | ER Document Report ---
ED General - General Chief Complaint: Flank Pain Stated Complaint: FLANK PAIN Time Seen by Provider: 05/08/19 03:09 Primary Care Provider: STEVEN VILLALOBOS MD [Primary Care Provider] - Follow up as needed Notes: Patient is a 58-year-old male presents to the emergency department for chronic bilateral flank pain. Patient was at this facility yesterday for same. States he is been taking Cipro since 05/03 for urinary tract infection was also given oxycodone 10 mg 60 tablets on 05/03 for generalized flank pain. Patient states he has an extensive history of kidney stones with stent placement, urinary tract infections. States he does have a history of low platelets as well. Patient states he was being seen at [facility] for his urology care. States that the urologist there is refusing to see him because there is "nothing else they can do for me." Patient denies that he has attempted to contact [facility] or [facility] for urology care. States he presents to the emergency department tonight due to urinary frequency, dysuria, generalized bilateral flank pain. Patient denies any vomiting, fevers. TRAVEL OUTSIDE OF THE [place] IN LAST 30 DAYS: No - Related Data Allergies/Adverse Reactions: erythromycin base Allergy (Verified 05/08/19 02:51) hydromorphone [From Dilaudid] Adverse Reaction (Verified 05/08/19 02:51) palpations ketorolac [From Toradol] Adverse Reaction (Verified 05/08/19 02:51) Past Medical History - General Information source: Patient - Social History Smoking Status: Current Every Day Smoker Chew tobacco use (# tins/day): No Frequency of alcohol use: None Drug Abuse: None Family History: Reviewed & Not Pertinent Patient has suicidal ideation: No Patient has homicidal ideation: No - Past Medical History Cardiac Medical History: Reports: Hx DVT, Hx Hypercholesterolemia, Hx Hypertension Neurological Medical History: Reports: Hx Cerebrovascular Accident - TIA Renal/ Medical History: Reports: Hx Kidney Stones. Denies: Hx Peritoneal Dialysis GI Medical History: Reports: Hx Hepatitis - History of hepatitis C. He has had treatment. Musculoskeletal Medical History: Reports Hx Arthritis Infectious Medical History: Reports: Hx Hepatitis - History of hepatitis C. He has had treatment. Past Surgical History: Reports: Hx Abdominal Surgery - hernia, Hx Appendectomy, Hx Cholecystectomy, Hx Kidney (Renal Surgery) - kidney stones, bilateral ureteral stents on 02/08/2019, Hx Orthopedic Surgery - Has had cervical spine surgery, r Knee Replacement, Hx Vascular Surgery - removal of DVTs in legs, IVC filter placed - Immunizations Hx Diphtheria, Pertussis, Tetanus Vaccination: Yes Review of Systems - Review of Systems Constitutional: denies: Fever EENT: No symptoms reported Cardiovascular: No symptoms reported Respiratory: No symptoms reported Gastrointestinal: See HPI Genitourinary: See HPI Male Genitourinary: See HPI Musculoskeletal: See HPI Skin: No symptoms reported Hematologic/Lymphatic: No symptoms reported Neurological/Psychological: No symptoms reported Physical Exam - Notes Notes: GENERAL: Alert, interacts well. No acute distress. HEAD: Normocephalic, atraumatic. EYES: Pupils equal, round, and reactive to light. Extraocular movements intact. ENT: Oral mucosa moist, tongue midline. NECK: Full range of motion. Supple. Trachea midline. LUNGS: Clear to auscultation bilaterally, no wheezes, rales, or rhonchi. No respiratory distress. HEART: Regular rate and rhythm. No murmur ABDOMEN: Soft, non-tender. Non-distended. Bowel sounds present in all 4 quadrants. No McBurney's point tenderness, no Smith sign noted. EXTREMITIES: Moves all 4 extremities spontaneously. No edema, normal radial and dorsalis pedis pulses bilaterally. No cyanosis. BACK: no cervical, thoracic, lumbar midline tenderness. No saddle anesthesia, normal distal neurovascular exam. Bilateral CVA tenderness noted. NEUROLOGICAL: Alert and oriented x3. Normal speech. cranial nerves II through XII grossly intact PSYCH: Normal affect, normal mood. SKIN: Warm, dry, normal turgor. No rashes or lesions noted. Course - Re-evaluation Re-evalutation: 05/08/19 06:27 Upon initial examination patient does not appear to be in distress. He is sitting comfortably on the stretcher. Patient is asking for pain medication that will "help this pain when I pee." Laboratory 05/08/19 05/08/19 05/08/19 02:57 04:02 04:02 WBC 4.2 RBC 3.62 L Hgb 11.9 L Hct 34.6 L MCV 95 MCH 32.9 MCHC 34.5 RDW 14.6 H Plt Count 50 L Seg Neutrophils % 58.1 Lymphocytes % 26.9 Monocytes % 11.8 Eosinophils % 2.9 Basophils % 0.3 Absolute Neutrophils 2.4 Absolute Lymphocytes 1.1 Absolute Monocytes 0.5 Absolute Eosinophils 0.1 Absolute Basophils 0.0 Sodium 140.2 Potassium 3.2 L Chloride 109 H Carbon Dioxide 26 Anion Gap 5 BUN 11 Creatinine 0.66 Est GFR ( Amer) > 60 Est GFR (Non-Af Amer) > 60 Glucose 115 H Calcium 9.8 Total Bilirubin 1.3 Direct Bilirubin 0.4 Neonat Total Bilirubin Not Reportable Neonat Direct Bilirubin Not Reportable Neonat Indirect Bili Not Reportable AST 55 ALT 30 Alkaline Phosphatase 82 Total Protein 6.4 Albumin 3.2 L Urine Color GENE Urine Appearance CLOUDY Urine pH 6.0 Ur Specific [place] 1.017 Urine Protein 100 H Urine Glucose (UA) NEGATIVE Urine Ketones NEGATIVE Urine Blood LARGE H Urine Nitrite NEGATIVE Urine Bilirubin NEGATIVE Urine Urobilinogen NEGATIVE Ur Leukocyte Esterase MODERATE H Urine WBC (Auto) >182 Urine RBC (Auto) >182 Urine Mucus (Auto) FEW Urine Ascorbic Acid NEGATIVE Abdomen/Pelvis CT 05/08/19 03:57 IMPRESSION: 1. Bilateral double-J ureteral stents are stable in appearance however there is interval development of moderate right hydronephrosis. Correlation for stent function recommended. 2. Interval increase in size of inferior pole nonobstructing right renal calculus now measuring 1.0 cm. 3. Upper abdominal mesenteric edema is stable and may be related to portal hypertension. 4. Cirrhotic appearance of the liver with findings suggestive of portal hypertension including portal collaterals and splenomegaly. 5. Interval development of hypodense 1.6 cm nodule in the right hepatic lobe which is incompletely evaluated on this study. Correlation with multiphase hepatic CT recommended. This exam was performed according to our departmental dose-optimization program, which includes automated exposure control, adjustment of the mA and/or kV according to patient size and/or use of iterative reconstruction technique. 05/08/19 06:30 Patient's labs are consistent with his history of thrombocytopenia. They are unchanged from previous visits. Patient's labs show no change in his kidney function. Patient is afebrile, with no leukocytosis noted on labs. Patient's potassium was noted to be 3.2, oral potassium provided in the emergency room. Patients urinalysis shows a worsening urinary tract infection from yesterday's visit. Urine cultures from yesterday's visit were not available at this time. In reviewing past urine cultures patient was susceptible to Macrobid. Discussed this case with my attending Dr. Vásquez who suggested given the Pt. a dose of ceftriaxone in the emergency department and discharging the patient with Macrobid. After treatments in the emergency room patient states he overall feels a lot better. States "what ever pill you gave me really helped." This is in regards to the Pyridium. Discussed use of Pyridium for home, discussed use of Macrobid, discussed use of at home oxycodone. I discussed with patient at length he needs to follow-up with a urologist for continued care. At this time will discharge with return precautions and follow-up recom mendations. Verbal discharge instructions given a the bedside and opportunity for questions given. Medication warnings reviewed. Patient is in agreement with this plan and has verbalized understanding of return precautions and the need for primary care follow-up in the next 24-72 hours. This medical record was dictated with voice recognizing software. There may be grammatical, syntax errors that are unintended. - Laboratory Result Diagrams: 05/08/19 04:02 05/08/19 04:02 Laboratory results interpreted by me: 05/08/19 05/08/19 05/08/19 02:57 04:02 04:02 RBC 3.62 L Hgb 11.9 L Hct 34.6 L RDW 14.6 H Plt Count 50 L Potassium 3.2 L Chloride 109 H Glucose 115 H Albumin 3.2 L Urine Protein 100 H Urine Blood LARGE H Ur Leukocyte Esterase MODERATE H Discharge - Discharge Clinical Impression: Thrombocytopenia Urinary tract infection Qualifiers: Urinary tract infection type: acute pyelonephritis Qualified Code(s): N10 - Acute pyelonephritis Condition: Stable Disposition: HOME, SELF-CARE Instructions: Nitrofurantoin ([facility]), Urinary Anesthetic Agent ([facility]), Urinary Tract Infection ([facility]) Additional Instructions: As we discussed you have been seen and treated in the emergency department for a urinary tract infection in your chronic kidney pain. Please make sure you are taking new antibiotics as prescribed. Please also make sure you are taking your prescribed pain medication. Please follow-up with your primary care provider in the next 24 to 48 hours. Please also follow-up with urology, phone numbers to be provided in this packet. Please return to the emergency room for any further concerns. Prescriptions: Nitrofurantoin/Nitrofuran Mac [Macrobid 100 mg Capsule] 1 tab PO BID #20 capsule Phenazopyridine HCl [Pyridium] 200 mg PO TID 2 Days tablet Referrals: STEVEN VILLALOBOS MD [Primary Care Provider] - Follow up as needed [facility] [Provider Group] - Follow up as needed
[2019-05-08 06:48] VITALS: BP 151/85
== END 2019-05-08 06:48 | disposition home or self-care (01) ==
LOC: ER 02:44
DX: N10 Acute pyelonephritis (principal); D69.6 Thrombocytopenia, unspecified; N20.0 Calculus of kidney; N13.30 Unspecified hydronephrosis; R10.9 Unspecified abdominal pain; Z96.0 Presence of urogenital implants
CPT/HCPCS: 99284; 96375; 96365; 36415; 87086; 85025; 80053; 81001; 74176; J3010; A9270 ×2; J0696; J3490

== ENCOUNTER 2019-05-10 02:41 | Emergency (ER) | payer MEDICARE ==
[2019-05-10 04:25] LABS: APPEARANCE,URINE CLOUDY; BILIRUBIN,URINE NEGATIVE (NEGATIVE); COLOR,URINE AMBER; GLUCOSE, URINE NEGATIVE (NEGATIVE); KETONES,URINE NEGATIVE (NEGATIVE); LEUKOCYTE ESTERASE,URINE MODERATE (NEGATIVE); NITRITE,URINE NEGATIVE (NEGATIVE); PROTEIN,URINE 100 mg/dL (NEGATIVE); URINE SPECIFIC GRAVITY 1.018; UROBILINOGEN,URINE NEGATIVE mg/dL (<2.0)
[2019-05-10] MEDS ORDERED: ONDANSETRON HCL INJ/PF 4 MG/2 ML SDV IV ONE (06:51)
[2019-05-10] MEDS ORDERED: NORMAL SALINE 1000 ML 1,000 ML IV ONE (06:51)
[2019-05-10] MEDS ORDERED: MORPHINE SULFATE 10 MG/ML INJ IV ONE ×2 (06:51→09:42)
--- NOTE | 2019-05-10 07:31 | ER Document Report ---
ED GI/ - General Chief Complaint: Flank Pain Stated Complaint: KIDNEY PAIN Time Seen by Provider: 05/10/19 06:19 Primary Care Provider: STEVEN VILLALOBOS MD [Primary Care Provider] - Follow up as needed Notes: 58-year-old male with history of kidney stones presents with bilateral flank pain. He rates the pain as aching and severe. The patient has a history of kidney stones in the past that he lives in [place]. It started before he came down here he was transferred divided from the ER here and got bilateral stents. He is to follow-up with [facility] but he has not for urology. Patient is seeing his family doctor several times and they are giving him pain medicine. He was seen here several days ago and he had a contaminated urine and was placed on Cipro. The patient states he is having chills but denies fever. Complains of bilateral flank pain for which he rates at 10 out of 10 severe. He is very agitated and states he just wants something done. TRAVEL OUTSIDE OF THE [place] IN LAST 30 DAYS: No - Related Data Allergies/Adverse Reactions: erythromycin base Allergy (Verified 05/08/19 02:51) hydromorphone [From Dilaudid] Adverse Reaction (Verified 05/08/19 02:51) palpations ketorolac [From Toradol] Adverse Reaction (Verified 05/08/19 02:51) Past Medical History - Social History Smoking Status: Unknown if Ever Smoked Family History: Reviewed & Not Pertinent Patient has suicidal ideation: No Patient has homicidal ideation: No - Past Medical History Cardiac Medical History: Reports: Hx DVT, Hx Hypercholesterolemia, Hx Hyp ertension Neurological Medical History: Reports: Hx Cerebrovascular Accident - TIA Renal/ Medical History: Reports: Hx Kidney Stones. Denies: Hx Peritoneal Dialysis GI Medical History: Reports: Hx Hepatitis - History of hepatitis C. He has had treatment. Musculoskeletal Medical History: Reports Hx Arthritis Infectious Medical History: Reports: Hx Hepatitis - History of hepatitis C. He has had treatment. Past Surgical History: Reports: Hx Abdominal Surgery - hernia, Hx Appendectomy, Hx Cholecystectomy, Hx Kidney (Renal Surgery) - kidney stones, bilateral ureteral stents on 02/08/2019, Hx Orthopedic Surgery - Has had cervical spine surgery, r Knee Replacement, Hx Vascular Surgery - removal of DVTs in legs, IVC filter placed - Immunizations Hx Diphtheria, Pertussis, Tetanus Vaccination: Yes Review of Systems - Review of Systems Constitutional: Chills. denies: Fever EENT: denies: Nose congestion, Throat pain Cardiovascular: denies: Chest pain Gastrointestinal: Abdominal pain, Nausea. denies: Diarrhea, Vomiting, Constipation Genitourinary: Dysuria, Hematuria Musculoskeletal: Back pain -: Yes All other systems reviewed and negative Physical Exam - Vital signs Vitals: Temp Pulse Resp BP Pulse Ox 97.7 F 76 16 160/83 H 100 05/10/19 02:49 05/10/19 02:49 05/10/19 02:49 05/10/19 02:49 05/10/19 02:49 - Notes Notes: GENERAL_APPEARANCE: well_nourished, alert, cooperative, no_acute_distress, no_obvious_discomfort. VITALS: reviewed, see vital signs table. HEAD: no_swelling\tenderness on the head. EYES: conjunctiva_clear. NOSE: no_nasal_discharge. MOUTH: (-)decreased moisture. THROAT: no_tonsilar_inflammation, no_airway_obstruction. no_lymphadenopathy NECK: supple, no_neck_tenderness, (-)thyromegaly. BACK: Lateral CVA_back_tenderness. CHEST_WALL: no_chest_tenderness. LUNGS: no_wheezing, no_rales, no_rhonchi, (-)accessory muscle use, good air exchange bilateral. HEART: normal_rate, normal_rhythm, normal_S1, normal_S2, (-)S3, (-)S4, no_murmur, no_rub. ABDOMEN: normal_BS, soft, no_abd_tenderness, (-)guarding, (-)rebound, no_orga nomegaly, no_abd_masses. EXTREMITIES: strength 5/5 in all_extremities, good pulses in all_extremities, no_swelling\tenderness in the extremities, no_edema. SKIN: warm, dry, good_color, no_rash. MENTAL_STATUS: speech_clear, oriented_X_3, angry_affect, responds_appropriately to questions. Course - Re-evaluation Re-evalutation: 05/10/19 07:30 58-year-old male presents with bilateral flank pain. Patient has bilateral ureteral stents. The patient is supposed to see [facility] urology. He has missed appointments. The patient is been seeing his family doctor. He was placed on Cipro here several days ago his urine is bloody but that is due to his thrombocytopenia and stents and kidney stones will produce blood it does not lo ok to be infected. There is a localized inflammatory reaction which creates white cells. This is not uncommon with stents. He had a CT several days ago which showed no obstruction. I do not think we need to repeat this we will give him some IV fluids pain and nausea medicine. We will call [facility] urology. 05/10/19 09:[address] from last visit again it shows no obstructive pattern with the stents. Patient's urine looks good there is blood present but that is due to the stone and stents he is already on Cipro there is only a few white cells but this is likely due to the inflammatory reaction there is no leukocytosis no fever he does not have a septic stone. Spoke with the patient about the absolute importance of follow-up he should go back to [facility] where they can pull the stents. The patient states that he is just can drive home to [place]. The patient asked for additional pain medicine I explained him he does get 120 Percocet 3 days ago from his doctor. No additional pain medicine will be prescribed we will prescribe him some Pyridium for home. - Vital Signs Vital signs: Temp Pulse Resp BP Pulse Ox 98.1 F 78 18 154/76 H 99 05/10/19 06:50 05/10/19 06:50 05/10/19 06:50 05/10/19 06:50 05/10/19 06:50 - Laboratory Result Diagrams: 05/10/19 07:06 05/10/19 07:06 Laboratory results interpreted by me: 05/10/19 05/10/19 05/10/19 03:30 07:06 07:06 RBC 3.49 L Hgb 11.5 L Hct 33.3 L RDW 15.0 H Plt Count 40 L Potassium 3.4 L Chloride 113 H Anion Gap 3 L Albumin 3.0 L Lipase 389.8 H Urine Protein 100 H Urine Blood LARGE H Ur Leukocyte Esterase MODERATE H - Diagnostic Test Radiology results interpreted by me: 05/10/19 09:[address] from prior visit Discharge - Discharge Clinical Impression: Kidney stones, Thrombocytopenia, Hematuria Condition: Good Disposition: HOME, SELF-CARE Instructions: Kidney Stone ([facility]) Additional Instructions: Please call [facility] urology the stated they will see you and talk about pulling the stents out and what your options are. Prescriptions: Phenazopyridine HCl [Pyridium 200 mg Tablet] 200 mg PO TID #15 tablet Referrals: STEVEN VILLALOBOS MD [Primary Care Provider] - Follow up as needed
[2019-05-10 07:33] LABS: ABSOLUTE EOSINOPHILS # (AUTO) 0.1 10^3/uL (0.0-0.6); ABSOLUTE LYMPHOCYTES (AUTO) 1.1 10^3/uL (0.5-4.7); ABSOLUTE MONOCYTES (AUTO) 0.5 10^3/uL (0.1-1.4); ABSOLUTE NEUT (AUTO) 2.3 10^3/uL (1.7-8.2); BASOPHILS % (AUTO) 0.4 % (0-2); EOSINOPHILS % (AUTO) 3.1 % (0-6); HEMATOCRIT 33.3 % (37.9-51.0); HEMOGLOBIN 11.5 g/dL (13.5-17.0); LYMPHOCYTES % (AUTO) 27.6 % (13-45); MEAN CORPUSCULAR HEMOGLOBIN 32.9 pg (27.0-33.4); MEAN CORPUSCULAR HGB CONC 34.5 g/dL (32.0-36.0); MEAN CORPUSCULAR VOLUME 95 fl (80-97); MONOCYTES % (AUTO) 12.4 % (3-13); RED BLOOD COUNT 3.49 10^6/uL (4.35-5.55); SEGMENTED NEUTROPHILS % (AUTO) 56.5 % (42-78); TOTAL CELLS COUNTED % (AUTO) 100 %; WHITE BLOOD COUNT 4.1 10^3/uL (4.0-10.5)
[2019-05-10 07:46] LABS: ALKALINE PHOSPHATASE 82 U/L (38-126); ASPARTATE AMINO TRANSFERASE 50 U/L (17-59); BILIRUBIN,DIRECT 0.4 mg/dL (0.0-0.4); BILIRUBIN,TOTAL 1.1 mg/dL (0.2-1.3); BLOOD UREA NITROGEN 10 mg/dL (7-20); CALCIUM 8.8 mg/dL (8.4-10.2); CARBON DIOXIDE 25 mmol/L (22-30); CHLORIDE 113 mmol/L (98-107); GLUCOSE 89 mg/dL (75-110); TOTAL PROTEIN 6.4 g/dL (6.3-8.2)
[2019-05-10 07:48] LABS: POTASSIUM 3.4 mmol/L (3.6-5.0)
[2019-05-10 07:49] LABS: ANION GAP 3 (5-19)
[2019-05-10 07:55] LABS: PLATELET COUNT 40 10^3/uL (150-450)
[2019-05-10 10:53] VITALS: BP 148/93
== END 2019-05-10 10:53 | disposition home or self-care (01) ==
LOC: ER 02:41
DX: N20.0 Calculus of kidney (principal); D69.6 Thrombocytopenia, unspecified; R31.9 Hematuria, unspecified; R68.83 Chills (without fever); I10 Essential (primary) hypertension; Z88.1 Allergy status to other antibiotic agents; R11.0 Nausea; R30.0 Dysuria; Z96.0 Presence of urogenital implants
CPT/HCPCS: 96376; 99284; 96361; 96374; 96375; 36415; 87086; 83690; 85025; 80053; 81001; J2270; J2405; J7030

== ENCOUNTER 2019-05-23 03:24 | Emergency (ER) | payer MEDICARE ==
[2019-05-23] MEDS ORDERED: MORPHINE SULFATE 10 MG/ML INJ IV ONE (04:06)
[2019-05-23] MEDS ORDERED: ONDANSETRON HCL INJ/PF 4 MG/2 ML SDV IV ONE (04:06)
--- NOTE | 2019-05-23 04:19 | ER Document Report ---
ED GI/ - General Chief Complaint: Flank Pain Stated Complaint: ABDOMINAL PAIN Time Seen by Provider: 05/23/19 03:53 Primary Care Provider: STEVEN VILLALOBOS MD [Primary Care Provider] - Follow up as needed Notes: Patient is a 58-year-old male with a history of kidney stones and recurrent bilateral ureteral stents that comes emergency department for chief complaint of severe right flank pain. He states that he has had intermittent symptoms for some time now, he did follow-up with [facility], he states that he did get offered to have the stents removed but not the stones because of his discomfort, he states they are hesitant to simply break and remove the stones because he has a history of liver failure and thrombocytopenia. He denies current blood in the urine, fever/chills, vomiting. He states he came in because his pain medication that he is taking is not controlling his pain in his right flank mainly. TRAVEL OUTSIDE OF THE [place] IN LAST 30 DAYS: No - Related Data Allergies/Adverse Reactions: erythromycin base Allergy (Verified 05/08/19 02:51) hydromorphone [From Dilaudid] Adverse Reaction (Verified 05/08/19 02:51) palpations ketorolac [From Toradol] Adverse Reaction (Verified 05/08/19 02:51) Past Medical History - General Information source: Patient - Social History Smoking Status: Never Smoker Frequency of alcohol use: Former Lives with: Spouse/Significant other Family History: Reviewed & Not Pertinent - Past Medical History Cardiac Medical History: Reports: Hx DVT, Hx Hypercholesterolemia, Hx Hypertension Neurological Medical History: Reports: Hx Cerebrovascular Accident - TIA Renal/ Medical History: Reports: Hx Kidney Stones. Denies: Hx Peritoneal Dialysis GI Medical History: Reports: Hx Hepatitis - History of hepatitis C. He has had treatment. Musculoskeletal Medical History: Reports Hx Arthritis Infectious Medical History: Reports: Hx Hepatitis - History of hepatitis C. He has had treatment. Past Surgical History: Reports: Hx Abdominal Surgery - hernia, Hx Appendectomy, Hx Cholecystectomy, Hx Kidney (Renal Surgery) - kidney stones, bilateral ureteral stents on 02/08/2019, Hx Orthopedic Surgery - Has had cervical spine surgery, r Knee Replacement, Hx Vascular Surgery - removal of DVTs in legs, IVC filter placed - Immunizations Hx Diphtheria, Pertussis, Tetanus Vaccination: Yes Review of Systems - Review of Systems Constitutional: No symptoms reported EENT: No symptoms reported Cardiovascular: No symptoms reported Respiratory: No symptoms reported Gastrointestinal: See HPI Genitourinary: See HPI Male Genitourinary: No symptoms reported Musculoskeletal: No symptoms reported Skin: No symptoms reported Hematologic/Lymphatic: No symptoms reported Neurological/Psychological: No symptoms reported Physical Exam - Vital signs Vitals: Temp Pulse Resp BP Pulse Ox 98.4 F 70 16 139/78 H 99 05/23/19 03:47 05/23/19 03:47 05/23/19 03:47 05/23/19 03:47 05/23/19 03:47 - Notes Notes: GENERAL: Alert, interacts well. No acute distress. HEAD: Normocephalic, atraumatic. EYES: Pupils equal, round, and reactive to light. Extraocular movements intact. ENT: Oral mucosa moist, tongue midline. Oropharynx unremarkable. Airway patent. NECK: Full range of motion. Supple. Trachea midline. LUNGS: Clear to auscultation bilaterally, no wheezes, rales, or rhonchi. No respiratory distress. HEART: Regular rate and rhythm. No murmur ABDOMEN: Questionable minimal distention of the abdomen. No noted tenderness over the abdomen. No guarding or rigidity. GENITOURINARY: Deferred EXTREMITIES: Moves all 4 extremities spontaneously. No edema, normal radial and dorsalis pedis pulses bilaterally. No cyanosis. BACK: Complains of palpation of the right flank although no severe tenderness is noted. No midline tenderness, no saddle anesthesia, ambulates without difficulty, moves all extremities and full range of motion. NEUROLOGICAL: Alert and oriented x3. Normal speech. Cranial nerves II through XII grossly intact. PSYCH: Easily becomes emotional or frustrated but is also easily reassured SKIN: Warm, dry, normal turgor. No rashes or lesions noted. Course - Re-evaluation Re-evalutation: Patient with minimal lower extremity swelling, he states he is concerned about possible swelling of the abdomen. He does have a history of liver failure. No overt ascites. Ultrasound performed and ruled out ascites. Ultrasound shows the same right-sided hydronephrosis and kidney stone as previously without significant change. CBC again shows thrombocytopenia but no leukocytosis, chemistry without significant change from prior, urine has a lot of white blood cells and red blood cells, however I suspect this is from inflammatory changes from the stents. Patient had the identical urine as this 2 visits ago and the culture showed no growth. Patient has no fever. He is nontoxic in appearance. I discussed with patient. 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 He asked for assistance in regards to this. I did discuss with the patient, case maker consult was placed. He states he still has money coming in and he will be following up with both a hematology referral and with urology. I discussed return precautions. Patient states understanding and agreement. - Vital Signs Vital signs: Temp Pulse Resp BP Pulse Ox 98.4 F 68 16 136/65 H 97 05/23/19 06:40 05/23/19 06:40 05/23/19 06:40 05/23/19 06:40 05/23/19 06:40 - Laboratory Result Diagrams: 05/23/19 04:15 05/23/19 04:15 Laboratory results interpreted by me: 05/23/19 05/23/19 05/23/19 03:54 04:15 04:15 WBC 3.8 L RBC 3.63 L Hgb 12.0 L Hct 34.6 L RDW 15.1 H Plt Count 47 L Potassium 3.5 L Total Bilirubin 1.7 H Direct Bilirubin 0.5 H AST 70 H Albumin 3.1 L Urine Protein 100 H Urine Blood LARGE H Urine Urobilinogen 2.0 H Ur Leukocyte Esterase MODERATE H Discharge - Discharge Clinical Impression: Flank pain Condition: Stable Disposition: HOME, SELF-CARE Additional Instructions: You do not have fluid (ascites) on your abdomen. There is a right-sided kidney stone in the kidney with some swelling on the kidney but this is not changed from previously. Follow-up with [facility] for additional management of your stents and stones. Return for any concerning symptoms including fever, vomiting, severe worsening pain, or any other concerning symptoms. Referrals: STEVEN VILLALOBOS MD [Primary Care Provider] - Follow up as needed
[2019-05-23 04:26] LABS: APPEARANCE,URINE SLIGHTLY-CLOUDY; BILIRUBIN,URINE NEGATIVE (NEGATIVE); GLUCOSE, URINE NEGATIVE (NEGATIVE); KETONES,URINE NEGATIVE (NEGATIVE); LEUKOCYTE ESTERASE,URINE MODERATE (NEGATIVE); NITRITE,URINE NEGATIVE (NEGATIVE); PROTEIN,URINE 100 mg/dL (NEGATIVE); URINE SPECIFIC GRAVITY 1.014
[2019-05-23 04:37] LABS: COLOR,URINE DARK YELLOW
[2019-05-23 04:40] LABS: ABSOLUTE EOSINOPHILS # (AUTO) 0.1 10^3/uL (0.0-0.6); ABSOLUTE LYMPHOCYTES (AUTO) 1.1 10^3/uL (0.5-4.7); ABSOLUTE MONOCYTES (AUTO) 0.4 10^3/uL (0.1-1.4); ABSOLUTE NEUT (AUTO) 2.2 10^3/uL (1.7-8.2); BASOPHILS % (AUTO) 0.4 % (0-2); HEMATOCRIT 34.6 % (37.9-51.0); MEAN CORPUSCULAR HGB CONC 34.7 g/dL (32.0-36.0); MEAN CORPUSCULAR VOLUME 95 fl (80-97); MONOCYTES % (AUTO) 11.1 % (3-13); RED BLOOD COUNT 3.63 10^6/uL (4.35-5.55); RED CELL DISTRIBUTION WIDTH 15.1 % (11.5-14.0); SEGMENTED NEUTROPHILS % (AUTO) 57.5 % (42-78); TOTAL CELLS COUNTED % (AUTO) 100 %; WHITE BLOOD COUNT 3.8 10^3/uL (4.0-10.5)
[2019-05-23 04:50] LABS: ALBUMIN 3.1 g/dL (3.5-5.0); ALKALINE PHOSPHATASE 98 U/L (38-126); ANION GAP 5 (5-19); ASPARTATE AMINO TRANSFERASE 70 U/L (17-59); BILIRUBIN,DIRECT 0.5 mg/dL (0.0-0.4); BILIRUBIN,TOTAL 1.7 mg/dL (0.2-1.3); BLOOD UREA NITROGEN 8 mg/dL (7-20); CALCIUM 8.8 mg/dL (8.4-10.2); CARBON DIOXIDE 27 mmol/L (22-30); CHLORIDE 107 mmol/L (98-107); GLUCOSE 101 mg/dL (75-110); POTASSIUM 3.5 mmol/L (3.6-5.0); TOTAL PROTEIN 6.5 g/dL (6.3-8.2)
[2019-05-23 05:09] LABS: PLATELET COUNT 47 10^3/uL (150-450)
--- NOTE | 2019-05-23 05:51 | RADIOLOGY REPORT (SQ) ---
EXAM DESCRIPTION: US RETROPERITONEUM LIMITED COMPLETED DATE/TME: 05/23/2019 04:04 CLINICAL HISTORY: 58 years, Male, flank pain, hx ureter stents COMPARISON: CT 05/08/2019 TECHNIQUE: Retroperitoneal ultrasound LIMITATIONS: None. FINDINGS: The right kidney measures 11.4 x 7.2 x 6.6 cm, the left 11.8 x 6.0 6.2 cm. Nonobstructing 7 mm right renal calculus. Moderate right-sided hydronephrosis, also described previously. No renal mass or left-sided hydronephrosis. No perinephric fluid collection. Urinary bladder is incompletely distended, limiting its evaluation. IMPRESSION: Nonobstructing 7 mm right renal calculus. Moderate right hydronephrosis, also described on prior CT copyright 2010 [employer]- All Rights Reserved
--- NOTE | 2019-05-23 06:03 | RADIOLOGY REPORT (SQ) ---
EXAM: Ultrasound abdomen limited CLINICAL DATA: 58-year-old male with abdominal swelling, evaluate for ascites. TECHNICAL DATA: Limited sonographic imaging of the upper and lower quadrants was performed on 05/23/2019 at 4:58 AM. Comparison: Prior CT abdomen and pelvis performed on 05/08/2019. FINDINGS: Sonographic imaging of the upper and lower quadrants of the abdomen was performed and fails to demonstrate any significant ascites. IMPRESSION: 1. No evidence of ascites on the current examination.
[2019-05-23] MEDS ORDERED: OXYCODONE HCL IR 5 MG TABLET PO ONE (06:28)
[2019-05-23 06:49] VITALS: BP 136/65
== END 2019-05-23 06:49 | disposition home or self-care (01) ==
LOC: ER 03:24
DX: R10.9 Unspecified abdominal pain (principal); I10 Essential (primary) hypertension
CPT/HCPCS: 99284; 96374; 96375; 36415; 85025; 80053; 81001; 76775; 76705; J2270; J2405; A9270

== ENCOUNTER 2019-05-26 22:19 | Emergency (ER) | payer MEDICARE ==
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
[2019-05-27 00:56] LABS: ABSOLUTE EOSINOPHILS # (AUTO) 0.1 10^3/uL (0.0-0.6); ABSOLUTE MONOCYTES (AUTO) 0.4 10^3/uL (0.1-1.4); ABSOLUTE NEUT (AUTO) 1.6 10^3/uL (1.7-8.2); BASOPHILS % (AUTO) 0.4 % (0-2); EOSINOPHILS % (AUTO) 2.8 % (0-6); HEMATOCRIT 31.4 % (37.9-51.0); HEMOGLOBIN 10.9 g/dL (13.5-17.0); LYMPHOCYTES % (AUTO) 32.9 % (13-45); MEAN CORPUSCULAR HEMOGLOBIN 32.9 pg (27.0-33.4); MEAN CORPUSCULAR HGB CONC 34.6 g/dL (32.0-36.0); MEAN CORPUSCULAR VOLUME 95 fl (80-97); MONOCYTES % (AUTO) 11.8 % (3-13); RED CELL DISTRIBUTION WIDTH 15.1 % (11.5-14.0); SEGMENTED NEUTROPHILS % (AUTO) 52.1 % (42-78); TOTAL CELLS COUNTED % (AUTO) 100 %; WHITE BLOOD COUNT 3.1 10^3/uL (4.0-10.5)
[2019-05-27] MEDS ORDERED: OXYCODONE HCL IR 5 MG TABLET PO ONE (00:58)
[2019-05-27 01:13] LABS: ALBUMIN 2.8 g/dL (3.5-5.0); ALKALINE PHOSPHATASE 91 U/L (38-126); ASPARTATE AMINO TRANSFERASE 46 U/L (17-59); BILIRUBIN,DIRECT 0.5 mg/dL (0.0-0.4); BILIRUBIN,TOTAL 1.2 mg/dL (0.2-1.3); BLOOD UREA NITROGEN 8 mg/dL (7-20); CALCIUM 8.8 mg/dL (8.4-10.2); CARBON DIOXIDE 25 mmol/L (22-30); CHLORIDE 111 mmol/L (98-107); GLUCOSE 94 mg/dL (75-110); POTASSIUM 3.7 mmol/L (3.6-5.0); TOTAL PROTEIN 5.9 g/dL (6.3-8.2)
[2019-05-27 01:14] LABS: PLATELET COUNT 36 10^3/uL (150-450)
[2019-05-27 01:19] LABS: ANION GAP 4 (5-19)
[2019-05-27 01:55] LABS: APPEARANCE,URINE CLOUDY; BILIRUBIN,URINE NEGATIVE (NEGATIVE); COLOR,URINE AMBER; GLUCOSE, URINE NEGATIVE (NEGATIVE); KETONES,URINE NEGATIVE (NEGATIVE); LEUKOCYTE ESTERASE,URINE MODERATE (NEGATIVE); NITRITE,URINE NEGATIVE (NEGATIVE); PROTEIN,URINE 100 mg/dL (NEGATIVE); URINE SPECIFIC GRAVITY 1.016
[2019-05-27] MEDS ORDERED: SPIRONOLACTONE 25 MG TABLET PO ONE (02:14)
[2019-05-27 03:01] VITALS: BP 142/72
== END 2019-05-27 03:00 | disposition home or self-care (01) ==
LOC: ER 22:19
DX: N20.1 Calculus of ureter (principal); D69.6 Thrombocytopenia, unspecified; R31.0 Gross hematuria; G89.29 Other chronic pain; R10.9 Unspecified abdominal pain; R60.0 Localized edema; K74.60 Unspecified cirrhosis of liver; Z88.3 Allergy status to other anti-infective agents
CPT/HCPCS: 99283; 36415; 83690; 85025; 80053; 81001; A9270 ×2

== ENCOUNTER 2019-05-27 22:26 | Emergency (ER) | payer MEDICARE ==
[2019-05-27 22:39] VITALS: BP 149/74
--- NOTE | 2019-05-28 00:54 | ER Document Report ---
ED General - General Chief Complaint: Flank Pain Stated Complaint: SWOLLEN LEGS,FLANK PAIN Time Seen by Provider: 05/28/19 00:36 Primary Care Provider: STEVEN VILLALOBOS MD [Primary Care Provider] - Follow up as needed Notes: Patient is a 58-year-old male with multiple chronic medical conditions that presents to the emergency department for chief complaint of leg pain and flank pain. Patient was seen the emergency department last several days, for the same complaints, and he apparently was seen yesterday, given a prescription for oxycodone, which he states he took to the pharmacy, and that it was torn up, be cause he recently had another prescription for oxycodone, that he states that he thinks he lost, he was taking it twice daily, to help with his pain. He is not sure if it was stolen, or that he may have just displaced it. He states he has been having pain that he chronically has, in his legs, and his back, and currently rates the pain as a 6 out of 10, states that it hurts to walk. He is also been having peripheral edema, and he believes he was given a prescription for this as well, but did not get it filled because he was so upset about the pain medications. He denies having any chest pain, shortness of breath, difficulty breathing, nausea or vomiting. Past Medical History: History of DVTs, peripheral edema, kidney stones, liver disease, hepatitis C Past Surgical History: Ureteral stents, cholecystectomy Social History: Denies tobacco use, and current alcohol or illicit drug use. Currently homeless. Family History: Reviewed and noncontributory for presenting illness Allergies: Reviewed, see documented allergy list. REVIEW OF SYSTEMS: Other than noted above, the 12 point review of systems was reviewed with the patient and were negative, all pertinent findings are included in the HPI. PHYSICAL EXAMINATION: Vital signs reviewed, nursing noted reviewed. GENERAL: Patient appears uncomfortable, mildly agitated HEAD: Atraumatic, normocephalic. EYES: Eyes appear normal, extraocular movements intact, sclera anicteric, conjunctiva are normal. ENT: nares patent, oropharynx clear without exudates. Moist mucous membranes. NECK: Normal range of motion, supple without lymphadenopathy LUNGS: Breath sounds clear to auscultation bilaterally and equal. No wheezes rales or rhonchi. HEART: Regular rate and rhythm without murmurs ABDOMEN: Soft, mild CVA tenderness to palpation bilaterally, chronic per patient, normoactive bowel sounds. No rebound, guarding, or rigidity. No masses appreciated. EXTREMITIES: Bilateral 3+ pitting edema to the proximal tibias in the lower extremities, rest the extremity exam is grossly unremarkable. No erythema, no significant tenderness to palpation. NEUROLOGICAL: No focal neurological deficits. Moves all extremities spontaneous ly Motor and sensory grossly intact on exam. PSYCH: Appears mildly anxious, and agitated, but answering questions appropriately. SKIN: Warm, Dry, normal turgor, no rashes or lesions noted on exposed skin TRAVEL OUTSIDE OF THE [place] IN LAST 30 DAYS: No - Related Data Allergies/Adverse Reactions: erythromycin base Allergy (Verified 05/08/19 02:51) hydromorphone [From Dilaudid] Adverse Reaction (Verified 05/08/19 02:51) palpations ketorolac [From Toradol] Adverse Reaction (Verified 05/08/19 02:51) Past Medical History - Social History Smoking Status: Never Smoker Family History: Reviewed & Not Pertinent - Past Medical History Cardiac Medical History: Reports: Hx DVT, Hx Hypercholesterolemia, Hx Hypertension Neurological Medical History: Reports: Hx Cerebrovascular Accident - TIA Endocrine Medical History: Reports: Hx Diabetes Mellitus Type 2 Renal/ Medical History: Reports: Hx Kidney Stones. Denies: Hx Peritoneal Dialysis GI Medical History: Reports: Hx Cirrhosis, Hx Hepatitis - History of hepatitis C. He has had treatment. Musculoskeletal Medical History: Reports Hx Arthritis Infectious Medical History: Reports: Hx Hepatitis - History of hepatitis C. He has had treatment. Past Surgical History: Reports: Hx Abdominal Surgery - hernia, Hx Appendectomy, Hx Cholecystectomy, Hx Kidney (Renal Surgery) - kidney stones, bilateral ureteral stents on 02/08/2019, Hx Orthopedic Surgery - Has had cervical spine surgery, r Knee Replacement, Hx Vascular Surgery - removal of DVTs in legs, IVC filter placed - Immunizations Immunizations up to date: Yes Hx Diphtheria, Pertussis, Tetanus Vaccination: Yes Physical Exam - Vital signs Vitals: Temp Pulse Resp BP Pulse Ox 98.0 F 66 20 149/74 H 99 05/27/19 22:38 05/27/19 22:38 05/27/19 22:38 05/27/19 22:38 05/27/19 22:38 Course - Re-evaluation Re-evalutation: Patient seen and examined vital signs reviewed. Patient was evaluated and treated as appropriate for the patient's presenting symptoms and complaint, with consideration of any critical or life threatening conditions that may be associated with their obtained history and exam as noted above. Patient was treated with IM Lasix, and IM morphine The patient was re-evaluated and was stable Evaluation was most consistent with flank pain, bilateral peripheral edema, patient had a complete work-up recently, is been in the emergency department last few days, he has chronic pain, and is on oxycodone, which apparently has been displaced, patient is adamant about this, however he is unable to receive any further opiates, and I did review the [place] prescription reporting system, he did receive 60 tablets of oxycodone on May 12, I would not prescribe him any further medication, will dispense 6 [place], for his pain, as I do believe this patient is having chronic pain, and he does seem to be legitimate in his concerns, but will not provide any further prescription at this time, and advised that he cannot continue to return to the emergency department for pain management, he needs to find a primary care physician. Plan of care was discussed with the patient at this point, after careful consideration I feel that that patient can be discharged from the emergency department, the patient was educated treatments and reasons to return to the emergency department based on their presumed diagnosis as noted above, they were advised to followup with a primary care physician in 2-3 days. Patient was agreeable to plan of care. *Note is created using voice recognition software and may contain spelling, syntax or grammatical errors. - Vital Signs Vital signs: Temp Pulse Resp BP Pulse Ox 98.0 F 66 20 149/74 H 99 05/27/19 22:38 05/27/19 22:38 05/27/19 22:38 05/27/19 22:38 05/27/19 22:38 Discharge - Discharge Clinical Impression: Flank pain, Lower extremity edema Condition: Stable Disposition: HOME, SELF-CARE Instructions: Edema, Peripheral ([facility]) Additional Instructions: Please follow-up with your primary care, cannot provide any further prescriptions from the emergency department going forward, you need to have this discussed with a primary care physician on an outpatient basis, we understand that you are having pain, but the emergency department is not the appropriate place to be managing pain. Please picker packer any other prescriptions that you have been given, to treat the swelling in your legs. Referrals: STEVEN VILLALOBOS MD [Primary Care Provider] - Follow up as needed
[2019-05-28] MEDS ORDERED: FUROSEMIDE INJ/PF 20 MG/2 ML SDV IM ONE (01:07)
[2019-05-28] MEDS ORDERED: MORPHINE SULFATE 10 MG/ML INJ IM ONE (01:08)
[2019-05-28] MEDS ORDERED: HYDROCODONE/ACETAMINOPHEN 5-325 MG (6 TAB/ER DISP) PO PRN (01:09)
== END 2019-05-28 01:58 | disposition home or self-care (01) ==
LOC: ER 22:26
DX: R10.9 Unspecified abdominal pain (principal); R60.9 Edema, unspecified; E78.00 Pure hypercholesterolemia, unspecified; I10 Essential (primary) hypertension; Z86.73 Personal history of transient ischemic attack (TIA), and cerebral infarction without residual deficits; E11.9 Type 2 diabetes mellitus without complications; Z87.442 Personal history of urinary calculi; Z86.718 Personal history of other venous thrombosis and embolism; Z86.19 Personal history of other infectious and parasitic diseases; Z90.49 Acquired absence of other specified parts of digestive tract; Z88.3 Allergy status to other anti-infective agents; Z88.6 Allergy status to analgesic agent
CPT/HCPCS: 99283; 96372; J1940; J2270; A9270

== ENCOUNTER 2019-05-29 22:27 | Emergency (ER) | payer MEDICARE ==
[2019-05-29 23:59] VITALS: BP 150/68
[2019-05-30 00:50] LABS: ABSOLUTE EOSINOPHILS # (AUTO) 0.1 10^3/uL (0.0-0.6); ABSOLUTE LYMPHOCYTES (AUTO) 1.5 10^3/uL (0.5-4.7); ABSOLUTE MONOCYTES (AUTO) 0.6 10^3/uL (0.1-1.4); ABSOLUTE NEUT (AUTO) 2.8 10^3/uL (1.7-8.2); BASOPHILS % (AUTO) 0.4 % (0-2); EOSINOPHILS % (AUTO) 2.5 % (0-6); HEMOGLOBIN 11.9 g/dL (13.5-17.0); LYMPHOCYTES % (AUTO) 30.1 % (13-45); MEAN CORPUSCULAR HEMOGLOBIN 32.6 pg (27.0-33.4); MEAN CORPUSCULAR HGB CONC 34.1 g/dL (32.0-36.0); MEAN CORPUSCULAR VOLUME 96 fl (80-97); MONOCYTES % (AUTO) 11.7 % (3-13); RED BLOOD COUNT 3.65 10^6/uL (4.35-5.55); RED CELL DISTRIBUTION WIDTH 15.1 % (11.5-14.0); SEGMENTED NEUTROPHILS % (AUTO) 55.3 % (42-78); TOTAL CELLS COUNTED % (AUTO) 100 %
[2019-05-30 01:01] LABS: APPEARANCE,URINE SLIGHTLY-CLOUDY; BILIRUBIN,URINE NEGATIVE (NEGATIVE); GLUCOSE, URINE NEGATIVE (NEGATIVE); KETONES,URINE NEGATIVE (NEGATIVE); LEUKOCYTE ESTERASE,URINE MODERATE (NEGATIVE); NITRITE,URINE NEGATIVE (NEGATIVE); PROTEIN,URINE 100 mg/dL (NEGATIVE); URINE SPECIFIC GRAVITY 1.019
[2019-05-30 01:02] LABS: COLOR,URINE DARK YELLOW
[2019-05-30 01:11] LABS: PLATELET COUNT 43 10^3/uL (150-450)
[2019-05-30 01:23] LABS: ALBUMIN 2.9 g/dL (3.5-5.0); ALKALINE PHOSPHATASE 87 U/L (38-126); ASPARTATE AMINO TRANSFERASE 57 U/L (17-59); BILIRUBIN,DIRECT 0.5 mg/dL (0.0-0.4); BILIRUBIN,TOTAL 1.2 mg/dL (0.2-1.3); BLOOD UREA NITROGEN 11 mg/dL (7-20); CALCIUM 8.9 mg/dL (8.4-10.2); CARBON DIOXIDE 26 mmol/L (22-30); CHLORIDE 111 mmol/L (98-107); GLUCOSE 79 mg/dL (75-110); POTASSIUM 3.6 mmol/L (3.6-5.0); TOTAL PROTEIN 6.1 g/dL (6.3-8.2)
[2019-05-30 01:30] LABS: ANION GAP 5 (5-19)
[2019-05-30] MEDS ORDERED: OXYCODONE HCL IR 5 MG TABLET PO ONE (02:12)
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
== END 2019-05-30 02:22 | disposition home or self-care (01) ==
LOC: ER 22:27
DX: N39.0 Urinary tract infection, site not specified (principal); R31.9 Hematuria, unspecified; M54.5 Low back pain; M79.604 Pain in right leg; M79.605 Pain in left leg; F17.200 Nicotine dependence, unspecified, uncomplicated; I10 Essential (primary) hypertension; E11.9 Type 2 diabetes mellitus without complications
CPT/HCPCS: 99283; 36415; 85025; 80053; 81001; 83880; A9270

== ENCOUNTER 2019-06-07 19:49 | Emergency (ER) | payer MEDICARE ==
[2019-06-07 20:19] LABS: APPEARANCE,URINE CLOUDY; BILIRUBIN,URINE NEGATIVE (NEGATIVE); COLOR,URINE AMBER; GLUCOSE, URINE NEGATIVE (NEGATIVE); KETONES,URINE NEGATIVE (NEGATIVE); LEUKOCYTE ESTERASE,URINE MODERATE (NEGATIVE); NITRITE,URINE NEGATIVE (NEGATIVE); PROTEIN,URINE 100 mg/dL (NEGATIVE); URINE SPECIFIC GRAVITY 1.016
[2019-06-07 20:23] VITALS: BP 132/73
--- NOTE | 2019-06-07 21:14 | ER Document Report ---
ED Medical Screen (RME) - General Chief Complaint: Back Pain Stated Complaint: BACK PAIN Time Seen by Provider: 06/07/19 21:07 Primary Care Provider: STEVEN VILLALOBOS MD [Primary Care Provider] - Follow up as needed Mode of Arrival: Ambulatory Information source: Patient Notes: Patient is a 58-year-old male presenting to the emergency department chief complaint of low back pain and right flank pain. Patient reports history of kidney stones, states that he feels he is having another kidney stone. He states he has bilateral ureteral stents that have been in place for 3 months. He states his urologist will not see him anymore as he is "too complicated". Patient denies any new symptoms, denies any fevers, nausea or vomiting. Patient has been seen here multiple times in the last 45 days, he has been scanned within the last 30 days. Will obtain basic labs at this time and allow for reevaluation once he is seen by provider in the main side. Exam: Patient alert, answering all questions appropriately with no acute distress noted. No CVA tenderness. Mild tenderness to palpation across the lumbar back. I have greeted and performed a rapid initial assessment of this patient. A comprehensive ED assessment and evaluation of the patient, analysis of test results and completion of the medical decision making process will be conducted by additional ED providers. I have specifically instructed the patient or family members with the patient to immediately return to any nursing staff should anything change in the patient's condition or with their chief complaint. This medical record was dictated with voice recognizing software. There may be grammatical, syntax errors that are unintended. TRAVEL OUTSIDE OF THE [place] IN LAST 30 DAYS: No - Related Data Allergies/Adverse Reactions: erythromycin base Allergy (Verified 06/07/19 19:51) hydromorphone [From Dilaudid] Adverse Reaction (Verified 06/07/19 19:51) palpations ketorolac [From Toradol] Adverse Reaction (Verified 06/07/19 19:51) Past Medical History - Social History Chew tobacco use (# tins/day): No Frequency of alcohol use: None Drug Abuse: None - Past Medical History Cardiac Medical History: Reports: Hx DVT, Hx Hypercholesterolemia, Hx Hypertension Neurological Medical History: Reports: Hx Cerebrovascular Accident - TIA Endocrine Medical History: Reports: Hx Diabetes Mellitus Type 2 Renal/ Medical History: Reports: Hx Kidney Stones. Denies: Hx Peritoneal Dialysis GI Medical History: Reports: Hx Cirrhosis, Hx Hepatitis - History of hepatitis C. He has had treatment. Musculoskeltal Medical History: Reports Hx Arthritis Infectious Medical History: Reports: Hx Hepatitis - History of hepatitis C. He has had treatment. Past Surgical History: Reports: Hx Abdominal Surgery - hernia, Hx Appendectomy, Hx Cholecystectomy, Hx Kidney (Renal Surgery) - kidney stones, bilateral ureteral stents on 02/08/2019, Hx Orthopedic Surgery - Has had cervical spine surgery, r Knee Replacement, Hx Vascular Surgery - removal of DVTs in legs, IVC filter placed - Immunizations Immunizations up to date: Yes Hx Diphtheria, Pertussis, Tetanus Vaccination: Yes Physical Exam - Vital signs Vitals: Temp Pulse Resp BP Pulse Ox 98.0 F 52 L 16 132/73 H 100 06/07/19 20:22 06/07/19 20:22 06/07/19 20:22 06/07/19 20:22 06/07/19 20:22 Course - Vital Signs Vital signs: Temp Pulse Resp BP Pulse Ox 98.0 F 52 L 16 132/73 H 100 06/07/19 20:22 06/07/19 20:22 06/07/19 20:22 06/07/19 20:22 06/07/19 20:22 - Laboratory Laboratory results interpreted by me: 06/07/19 19:55 Urine Protein 100 H Urine Blood LARGE H Urine Urobilinogen 2.0 H Ur Leukocyte Esterase MODERATE H Doctor's Discharge - Discharge Referrals: STEVEN VILLALOBOS MD [Primary Care Provider] - Follow up as needed
[2019-06-07 21:56] LABS: ABSOLUTE EOSINOPHILS # (AUTO) 0.2 10^3/uL (0.0-0.6); ABSOLUTE LYMPHOCYTES (AUTO) 2.4 10^3/uL (0.5-4.7); ABSOLUTE MONOCYTES (AUTO) 0.7 10^3/uL (0.1-1.4); ABSOLUTE NEUT (AUTO) 7.5 10^3/uL (1.7-8.2); BASOPHILS % (AUTO) 0.4 % (0-2); EOSINOPHILS % (AUTO) 1.9 % (0-6); HEMATOCRIT 42.8 % (37.9-51.0); HEMOGLOBIN 14.8 g/dL (13.5-17.0); LYMPHOCYTES % (AUTO) 22.2 % (13-45); MEAN CORPUSCULAR HEMOGLOBIN 32.9 pg (27.0-33.4); MEAN CORPUSCULAR HGB CONC 34.7 g/dL (32.0-36.0); MEAN CORPUSCULAR VOLUME 95 fl (80-97); MONOCYTES % (AUTO) 6.3 % (3-13); RED BLOOD COUNT 4.51 10^6/uL (4.35-5.55); RED CELL DISTRIBUTION WIDTH 14.6 % (11.5-14.0); SEGMENTED NEUTROPHILS % (AUTO) 69.2 % (42-78); TOTAL CELLS COUNTED % (AUTO) 100 %; WHITE BLOOD COUNT 10.8 10^3/uL (4.0-10.5)
[2019-06-07 22:11] LABS: ALKALINE PHOSPHATASE 188 U/L (38-126); ANION GAP 8 (5-19); ASPARTATE AMINO TRANSFERASE 85 U/L (17-59); BILIRUBIN,DIRECT 0.7 mg/dL (0.0-0.4); BILIRUBIN,TOTAL 2.2 mg/dL (0.2-1.3); BLOOD UREA NITROGEN 10 mg/dL (7-20); CALCIUM 9.3 mg/dL (8.4-10.2); CARBON DIOXIDE 25 mmol/L (22-30); CHLORIDE 106 mmol/L (98-107); GLUCOSE 86 mg/dL (75-110); POTASSIUM 4.1 mmol/L (3.6-5.0); TOTAL PROTEIN 7.9 g/dL (6.3-8.2)
[2019-06-07 22:14] LABS: PLATELET COUNT 72 10^3/uL (150-450)
--- NOTE | 2019-06-07 23:01 | ER Document Report ---
ED General - General Chief Complaint: Back Pain Stated Complaint: BACK PAIN Time Seen by Provider: 06/07/19 21:07 Primary Care Provider: STEVEN VILLALOBOS MD [Primary Care Provider] - Follow up as needed Mode of Arrival: Ambulatory Notes: 58-year-old male presents with right flank pain for 3 months. Long history of kidney stones and stents most recently stented at [facility]. Has had issues with pain control, and says that no urologist "we will touch me because of my hepatitis A." No fever, chronic hematuria. He has stents in place now. He is been here multiple times for pain medication and has failed to follow-up with urology. TRAVEL OUTSIDE OF THE [place] IN LAST 30 DAYS: No - Related Data Allergies/Adverse Reactions: erythromycin base Allergy (Verified 06/07/19 19:51) hydromorphone [From Dilaudid] Adverse Reaction (Verified 06/07/19 19:51) palpations ketorolac [From Toradol] Adverse Reaction (Verified 06/07/19 19:51) Past Medical History - General Information source: Patient - Social History Smoking Status: Current Every Day Smoker Chew tobacco use (# tins/day): No Frequency of alcohol use: None Drug Abuse: None Family History: Reviewed & Not Pertinent Patient has suicidal ideation: No Patient has homicidal ideation: No - Past Medical History Cardiac Medical History: Reports: Hx DVT, Hx Hypercholesterolemia, Hx Hypertension Neurological Medical History: Reports: Hx Cerebrovascular Accident - TIA Endocrine Medical History: Reports: Hx Diabetes Mellitus Type 2 Renal/ Medical History: Reports: Hx Kidney Stones. Denies: Hx Peritoneal Dialysis GI Medical History: Reports: Hx Cirrhosis, Hx Hepatitis - History of hepatitis C. He has had treatment. Musculoskeletal Medical History: Reports Hx Arthritis Infectious Medical History: Reports: Hx Hepatitis - History of hepatitis C. He has had treatment. Past Surgical History: Reports: Hx Abdominal Surgery - hernia, Hx Appendectomy, Hx Cholecystectomy, Hx Kidney (Renal Surgery) - kidney stones, bilateral ureteral stents on 02/08/2019, Hx Orthopedic Surgery - Has had cervical spine surgery, r Knee Replacement, Hx Vascular Surgery - removal of DVTs in legs, IVC filter placed - Immunizations Immunizations up to date: Yes Hx Diphtheria, Pertussis, Tetanus Vaccination: Yes Review of Systems - Review of Systems Notes: REVIEW OF SYSTEMS GEN: Denies fever, chills, weight loss ENT: Denies sore throat, nasal discharge, ear pain EYES: Denies blurry vision, eye pain, discharge CV: Denies chest pain, palpitations, edema RESP: Denies cough, shortness of breath, wheezing GI: Denies abdominal pain, nausea, vomiting, diarrhea MSK: Back pain flank pain SKIN: Denies rash, skin lesions LYMPH: Denies swollen glands/lymph nodes NEURO: Denies headache, focal weakness or numbness, dizziness PSYCH: Denies depression, suicidal or homicidal ideation PHYSICAL EXAMINATION General: No acute distress, well-nourished Head: Atraumatic, normocephalic ENT: Mouth normal, oropharynx moist, no exudates or tonsillar enlargement Eyes: Conjunctiva normal, pupils equal, lids normal Neck: No JVD, supple, no guarding CVS: Normal rate, regular rhythm, no murmurs Resp: No resp distress, equal and normal breath sounds bilaterally GI: Nondistended, soft, no tenderness to palpation, no rebound or guarding Ext: No deformities, no edema, normal range of motion in upper and lower ext Back: No CVA or midline TTP Skin: No rash, warm Lymphatic: No lymphadeopathy noted Neuro: Awake, alert. Face symmetric. GCS 15. Physical Exam - Vital signs Vitals: Temp Pulse Resp BP Pulse Ox 98.0 F 52 L 16 132/73 H 100 06/07/19 20:22 06/07/19 20:22 06/07/19 20:22 06/07/19 20:22 06/07/19 20:22 Course - Re-evaluation Re-evalutation: 06/07/19 23:11 Patient presents with ongoing flank pain in the setting of stents in place. Without fever without CVA tenderness. Issues with pain control. Issues with follow-up. Today has a very mild elevation in the white count. His urine has some leukocytes and blood, but actually is better than it usually is. Without CVA tenderness and fever I do not think any treatment for a pyelonephritis. Again the symptoms have been subacute to chronic. I encouraged him to follow-up with urology and was discharged in stable condition. I have discussed with the patient there likely diagnosis, aftercare plan, follow-up plans and my usual and customary return precautions. They verbalized understanding of this. - Vital Signs Vital signs: Temp Pulse Resp BP Pulse Ox 98.0 F 52 L 16 132/73 H 100 06/07/19 20:22 06/07/19 20:22 06/07/19 20:22 06/07/19 20:22 06/07/19 20:22 - Laboratory Result Diagrams: 06/07/19 21:35 06/07/19 21:11 Laboratory results interpreted by me: 06/07/19 06/07/19 06/07/19 19:55 21:11 21:35 WBC 10.8 H RDW 14.6 H Plt Count 72 L Total Bilirubin 2.2 H Direct Bilirubin 0.7 H AST 85 H Alkaline Phosphatase 188 H Urine Protein 100 H Urine Blood LARGE H Urine Urobilinogen 2.0 H Ur Leukocyte Esterase MODERATE H Discharge - Discharge Clinical Impression: Right flank pain Condition: Good Disposition: HOME, SELF-CARE Instructions: Kidney Stone ([facility]) Additional Instructions: Your urine does not appear infected today, your lab testing is essentially normal, and you already had stents in your kidneys. Because of this, it is your responsibility to follow-up with the urologist for ongoing pain management. We are unable to prescribe pain medicine for you today. Please take ibuprofen and contact your primary care regarding additional pain medicine needs. Please return to the ER for fever. Referrals: STEVEN VILLALOBOS MD [Primary Care Provider] - Follow up as needed
== END 2019-06-07 23:25 | disposition home or self-care (01) ==
LOC: ER 19:49
DX: R10.9 Unspecified abdominal pain (principal); M54.9 Dorsalgia, unspecified; R31.9 Hematuria, unspecified; D72.829 Elevated white blood cell count, unspecified; I10 Essential (primary) hypertension; F17.200 Nicotine dependence, unspecified, uncomplicated; Z96.0 Presence of urogenital implants; Z87.442 Personal history of urinary calculi; Z88.1 Allergy status to other antibiotic agents; Z90.49 Acquired absence of other specified parts of digestive tract
CPT/HCPCS: 36415; 80053; 81001; 85025; 99283

== ENCOUNTER 2019-06-10 15:51 | Emergency (ER) | payer MEDICARE ==
--- NOTE | 2019-06-10 16:40 | ER Document Report ---
ED Medical Screen (RME) - General Chief Complaint: Possible Kidney Stone Stated Complaint: FLANK PAIN Time Seen by Provider: 06/10/19 16:37 Primary Care Provider: STEVEN VILLALOBOS MD [Primary Care Provider] - Follow up as needed Mode of Arrival: Ambulatory Information source: Patient Notes: 58-year-old male presented to ED for complaint of bilateral flank he states he had kidney stones in both sides. He states he has a problem with low platelets and his urologist does not want to touch his kidney stones due to the low platelet count. He states he has had these kidney stones for a little over 3 months. He states last time he was in the emergency room they sent him to [place] to the urologist and that he goes to. Patient is alert and oriented respirations regular and unlabored. He states he has been taken off of blood thinners and he does have low platelets. Will redraw blood get urine and a renal ultrasound. I have greeted and performed a rapid initial assessment of this patient. A comprehensive ED assessment and evaluation of the patient, analysis of test results and completion of medical decision making process will be conducted by a n additional ED providers. TRAVEL OUTSIDE OF THE [place] IN LAST 30 DAYS: No - Related Data Allergies/Adverse Reactions: erythromycin base Allergy (Verified 06/10/19 15:52) hydromorphone [From Dilaudid] Adverse Reaction (Verified 06/10/19 15:52) palpations ketorolac [From Toradol] Adverse Reaction (Verified 06/10/19 15:52) Past Medical History - Past Medical History Cardiac Medical History: Reports: Hx DVT, Hx Hypercholesterolemia, Hx Hypertension Neurological Medical History: Reports: Hx Cerebrovascular Accident - TIA Endocrine Medical History: Reports: Hx Diabetes Mellitus Type 2 Renal/ Medical History: Reports: Hx Kidney Stones. Denies: Hx Peritoneal Dialysis GI Medical History: Reports: Hx Cirrhosis, Hx Hepatitis - History of hepatitis C. He has had treatment. Musculoskeltal Medical History: Reports Hx Arthritis Infectious Medical History: Reports: Hx Hepatitis - History of hepatitis C. He has had treatment. Past Surgical History: Reports: Hx Abdominal Surgery - hernia, Hx Appendectomy, Hx Cholecystectomy, Hx Kidney (Renal Surgery) - kidney stones, bilateral ure teral stents on 02/08/2019, Hx Orthopedic Surgery - Has had cervical spine surgery, r Knee Replacement, Hx Vascular Surgery - removal of DVTs in legs, IVC filter placed - Immunizations Immunizations up to date: Yes Hx Diphtheria, Pertussis, Tetanus Vaccination: Yes Physical Exam - Vital signs Vitals: Temp Pulse Resp BP Pulse Ox 97.8 F 65 18 143/77 H 98 06/10/19 16:31 06/10/19 16:31 06/10/19 16:31 06/10/19 16:31 06/10/19 16:31 Course - Vital Signs Vital signs: Temp Pulse Resp BP Pulse Ox 97.8 F 65 18 143/77 H 98 06/10/19 16:31 06/10/19 16:31 06/10/19 16:31 06/10/19 16:31 06/10/19 16:31 Doctor's Discharge - Discharge Referrals: STEVEN VILLALOBOS MD [Primary Care Provider] - Follow up as needed
[2019-06-10] MEDS ORDERED: MORPHINE SULFATE 10 MG/ML INJ IM ONE (16:44)
--- NOTE | 2019-06-10 18:40 | RADIOLOGY REPORT (SQ) ---
EXAM DESCRIPTION: U/S RETROPERITON (RENAL/AORTA) COMPLETED DATE/TIME: 06/10/2019 6:08 pm REASON FOR STUDY: hx kidney stones hematuria COMPARISON: 05/23/2019 TECHNIQUE: Dynamic and static grayscale images acquired of the kidneys and bladder and recorded on P ACS. Additional selected color Doppler and spectral images recorded. LIMITATIONS: None. FINDINGS: RIGHT KIDNEY: Normal size. Normal echogenicity. No solid or suspicious masses. No hydronep hrosis. 10 mm lower pole calcification. LEFT KIDNEY: Normal size. Normal echogenicity. No solid or suspicious masses. No hydronephrosis. No calcifications. BLADDER: Unremarkable. OTHER FINDINGS: No other significant finding. IMPRESSION: No hydronephrosis. TECHNICAL DOCUMENTATION: JOB ID: [id number] [id number] [employer]- All Rights Reserved Reading location - IP/workstation name: [email or web address]
[2019-06-10 19:13] LABS: ALBUMIN 3.3 g/dL (3.5-5.0); ALKALINE PHOSPHATASE 131 U/L (38-126); ANION GAP 6 (5-19); ASPARTATE AMINO TRANSFERASE 56 U/L (17-59); BILIRUBIN,DIRECT 0.4 mg/dL (0.0-0.4); BILIRUBIN,TOTAL 1.9 mg/dL (0.2-1.3); BLOOD UREA NITROGEN 8 mg/dL (7-20); CALCIUM 9.2 mg/dL (8.4-10.2); CARBON DIOXIDE 28 mmol/L (22-30); CHLORIDE 109 mmol/L (98-107); GLUCOSE 77 mg/dL (75-110); POTASSIUM 3.8 mmol/L (3.6-5.0); TOTAL PROTEIN 6.7 g/dL (6.3-8.2)
[2019-06-10 19:14] LABS: INTERNATIONAL RATION (INR) 1.51; PROTHROMBIN TIME 18.4 SEC (11.4-15.4)
[2019-06-10 19:15] LABS: PARTIAL THROMBOPLASTIN TIME 34.9 SEC (23.5-35.8)
[2019-06-10 21:36] LABS: ABSOLUTE EOSINOPHILS # (AUTO) 0.2 10^3/uL (0.0-0.6); ABSOLUTE LYMPHOCYTES (AUTO) 1.7 10^3/uL (0.5-4.7); ABSOLUTE MONOCYTES (AUTO) 0.6 10^3/uL (0.1-1.4); ABSOLUTE NEUT (AUTO) 4.8 10^3/uL (1.7-8.2); BASOPHILS % (AUTO) 0.2 % (0-2); EOSINOPHILS % (AUTO) 2.3 % (0-6); LYMPHOCYTES % (AUTO) 23.1 % (13-45); MEAN CORPUSCULAR HEMOGLOBIN 32.7 pg (27.0-33.4); MEAN CORPUSCULAR HGB CONC 34.3 g/dL (32.0-36.0); MEAN CORPUSCULAR VOLUME 96 fl (80-97); MONOCYTES % (AUTO) 7.8 % (3-13); RED BLOOD COUNT 3.98 10^6/uL (4.35-5.55); RED CELL DISTRIBUTION WIDTH 14.9 % (11.5-14.0); SEGMENTED NEUTROPHILS % (AUTO) 66.6 % (42-78); TOTAL CELLS COUNTED % (AUTO) 100 %; WHITE BLOOD COUNT 7.3 10^3/uL (4.0-10.5)
[2019-06-10 21:59] LABS: PLATELET COUNT 48 10^3/uL (150-450)
[2019-06-10 22:08] LABS: APPEARANCE,URINE SLIGHTLY-CLOUDY; BILIRUBIN,URINE NEGATIVE (NEGATIVE); GLUCOSE, URINE NEGATIVE (NEGATIVE); KETONES,URINE NEGATIVE (NEGATIVE); LEUKOCYTE ESTERASE,URINE MODERATE (NEGATIVE); NITRITE,URINE NEGATIVE (NEGATIVE); PROTEIN,URINE 100 mg/dL (NEGATIVE); URINE SPECIFIC GRAVITY 1.014
[2019-06-10 22:09] LABS: COLOR,URINE DARK YELLOW
[2019-06-10] MEDS ORDERED: OXYCODONE HCL IR 5 MG TABLET PO ONE (22:25)
--- NOTE | 2019-06-10 22:40 | ER Document Report ---
ED General - General Chief Complaint: Possible Kidney Stone Stated Complaint: FLANK PAIN Time Seen by Provider: 06/10/19 16:37 Primary Care Provider: STEVEN VILLALOBOS MD [PEDIATRICS] - Follow up as needed Mode of Arrival: Ambulatory TRAVEL OUTSIDE OF THE [place].S. IN LAST 30 DAYS: No - HPI Notes: Patient is a 58-year-old male presents emergency department for evaluation of right-sided flank pain. He has a known history of ureterolithiasis. He has jazmine al stent in place. He states this was placed on Vicodin about 3 months ago. He states because of his hepatitis and his pancytopenia, there is some concern about performing the trips he because of concern for bleeding. He continues to have pain, primarily related to the stent, so he presents to the emergency department for evaluation. No fevers or chills. He said some nausea but no emesis. He denies any gross hematuria. He does admit urinary frequency. - Related Data Allergies/Adverse Reactions: erythromycin base Allergy (Verified 06/10/19 15:52) hydromorphone [From Dilaudid] Adverse Reaction (Verified 06/10/19 15:52) palpations ketorolac [From Toradol] Adverse Reaction (Verified 06/10/19 15:52) Past Medical History - General Information source: Patient - Social History Smoking Status: Current Every Day Smoker Frequency of alcohol use: None Drug Abuse: None Family History: Reviewed & Not Pertinent Patient has suicidal ideation: No Patient has homicidal ideation: No - Past Medical History Cardiac Medical History: Reports: Hx DVT, Hx Hypercholesterolemia, Hx Hy pertension Neurological Medical History: Reports: Hx Cerebrovascular Accident - TIA Endocrine Medical History: Reports: Hx Diabetes Mellitus Type 2 Renal/ Medical History: Reports: Hx Kidney Stones. Denies: Hx Peritoneal D ialysis GI Medical History: Reports: Hx Cirrhosis, Hx Hepatitis - History of hepatitis C. He has had treatment. Musculoskeletal Medical History: Reports Hx Arthritis Infectious Medical History: Reports: Hx Hepatitis - History of hepatitis C. He has had treatment. Past Surgical History: Reports: Hx Abdominal Surgery - hernia, Hx Appendectomy, Hx Cholecystectomy, Hx Kidney (Renal Surgery) - kidney stones, bilateral ureteral stents on 02/08/2019, Hx Orthopedic Surgery - Has had cervical spine surgery, r Knee Replacement, Hx Vascular Surgery - removal of DVTs in legs, IVC filter placed - Immunizations Immunizations up to date: Yes Hx Diphtheria, Pertussis, Tetanus Vaccination: Yes Review of Systems - Review of Systems Constitutional: No symptoms reported EENT: No symptoms reported Cardiovascular: No symptoms reported Respiratory: No symptoms reported Gastrointestinal: No symptoms reported Genitourinary: See HPI Musculoskeletal: No symptoms reported Skin: No symptoms reported Neurological/Psychological: No symptoms reported Physical Exam - Vital signs Vitals: Temp Pulse Resp BP Pulse Ox 97.8 F 65 18 143/77 H 98 06/10/19 16:31 06/10/19 16:31 06/10/19 16:31 06/10/19 16:31 06/10/19 16:31 - Notes Notes: Vital signs reviewed, please refer to chart. Head is normocephalic, atraumatic. Pupils equal round, reactive to light. Neck is supple without meningismus. Heart is regular rate and rhythm. Lungs are clear to auscultation bilaterally. Abdomen is soft, nontender, normoactive bowel sounds throughout. Mild CVA tenderness on the right, none on the left. Extremities without cyanosis, clubbing. Posterior calves are nontender. Peripheral pulses are equal. Skin is warm and dry. Patient is awake, alert, neurological exam is nonfocal. Course - Re-evaluation Re-evalutation: 06/10/19 22:37 Presents emergency department for evaluation of right flank pain. He had laboratory investigations as ordered. Laboratory investigations revealed both red and white cells in the urine, but it was a nitrate negative specimen. Urine sent for culture. I did not see any previous urine cultures actually grew enough colony-forming organisms to amount to a UTI. I believe this is all pain related. He has no hydronephrosis on ultrasound. I will then send him home with a prescription for a small amount of oxycodone. He has an appoint with his primary care physician. He is to return to the ED with worsening or new concerning symptoms of any sort. - Vital Signs Vital signs: Temp Pulse Resp BP Pulse Ox 97.8 F 65 18 143/77 H 98 06/10/19 16:31 06/10/19 16:31 06/10/19 16:31 06/10/19 16:31 06/10/19 16:31 - Laboratory Result Diagrams: 06/10/19 21:05 06/10/19 18:33 Laboratory results interpreted by me: 06/10/19 06/10/19 06/10/19 16:00 18:33 18:33 RBC Hgb RDW Plt Count PT 18.4 H Chloride 109 H Total Bilirubin 1.9 H Alkaline Phosphatase 131 H Albumin 3.3 L Urine Protein 100 H Urine Blood LARGE H Urine Urobilinogen 4.0 H Ur Leukocyte Esterase MODERATE H 06/10/19 21:05 RBC 3.98 L Hgb 13.0 L RDW 14.9 H Plt Count 48 L PT Chloride Total Bilirubin Alkaline Phosphatase Albumin Urine Protein Urine Blood Urine Urobilinogen Ur Leukocyte Esterase - Diagnostic Test Radiology reviewed: Reports reviewed Radiology results interpreted by me: 06/10/19 22:38 Renal Ultrasound 06/10/19 16:40 IMPRESSION: No hydronephrosis. Discharge - Discharge Clinical Impression: Right flank pain Condition: Stable Disposition: HOME, SELF-CARE Instructions: Flank Pain ([facility]) Additional Instructions: Take oxycodone as needed for severe pain. Please watch for drowsiness and constipation with this medication. You need to follow-up with primary care, pain management. You need to establish care with the urologist will further care of the stents. If you develop fevers, vomiting, or any other new or concerning symptoms, please return to the emergency department for evaluation. Referrals: STEVEN VILLALOBOS MD [PEDIATRICS] - Follow up as needed
[2019-06-10 23:10] VITALS: BP 148/75
== END 2019-06-10 23:10 | disposition home or self-care (01) ==
LOC: ER 15:51
DX: R10.9 Unspecified abdominal pain (principal); R11.0 Nausea; R35.0 Frequency of micturition; F17.200 Nicotine dependence, unspecified, uncomplicated; I10 Essential (primary) hypertension; E11.9 Type 2 diabetes mellitus without complications; Z79.891 Long term (current) use of opiate analgesic; Z96.0 Presence of urogenital implants; Z88.1 Allergy status to other antibiotic agents; Z90.49 Acquired absence of other specified parts of digestive tract; Z87.19 Personal history of other diseases of the digestive system
CPT/HCPCS: 86900; 86901; 36415; 87086; 86850; 83690; 85025; 85610; 85730; 80053; 81001; 76770; J2270; A9270; 96372; 99284

== ENCOUNTER 2019-07-04 23:32 | Emergency (ER) | payer MEDICARE ==
[2019-07-04 23:57] VITALS: BP 167/84
[2019-07-05 00:59] LABS: APPEARANCE,URINE TURBID; BILIRUBIN,URINE NEGATIVE (NEGATIVE); GLUCOSE, URINE NEGATIVE (NEGATIVE); KETONES,URINE NEGATIVE (NEGATIVE); LEUKOCYTE ESTERASE,URINE MODERATE (NEGATIVE); NITRITE,URINE NEGATIVE (NEGATIVE); PROTEIN,URINE 100 mg/dL (NEGATIVE); URINE SPECIFIC GRAVITY 1.017
[2019-07-05 01:01] LABS: COLOR,URINE RED
== END 2019-07-05 02:28 | disposition left against medical advice (07) ==
LOC: ER 23:32
DX: Z53.21 Procedure and treatment not carried out due to patient leaving prior to being seen by health care provider (principal); R39.198 Other difficulties with micturition

== ENCOUNTER 2019-07-05 02:41 | Emergency (ER) | payer MEDICARE ==
[2019-07-05 02:49] VITALS: BP 159/81
== END 2019-07-05 05:02 | disposition left against medical advice (07) ==
LOC: ER 02:41
DX: Z53.21 Procedure and treatment not carried out due to patient leaving prior to being seen by health care provider (principal)

== ENCOUNTER 2019-07-05 10:28 | Emergency (ER) | payer MEDICARE ==
--- NOTE | 2019-07-05 10:48 | ER Document Report ---
ED Medical Screen (RME) - General Chief Complaint: Flank Pain Stated Complaint: FALL/RIB PAIN Time Seen by Provider: 07/05/19 10:36 Primary Care Provider: STEVEN VILLALOBOS MD [Primary Care Provider] - Follow up as needed Mode of Arrival: Ambulatory Notes: Patient states that he was sitting on a toilet 2 days ago because he has frequent urination and fell asleep and fell off of a stool in the bathroom. Patient complains of persistent right rib pain. Patient states he does have a history of low platelets as well as kidney stones. Patient does have ureteral stents in place. Patient complains of frequency, dysuria as well as hematuria. Patient was here yesterday and earlier this morning but left without being seen. Review of previous urinalysis demonstrates UTI. I have greeted and performed a rapid initial assessment of this patient. A comprehensive ED assessment and evaluation of the patient, analysis of test results and completion of the medical decision making process will be conducted by additional ED providers. TRAVEL OUTSIDE OF THE [place].S. IN LAST 30 DAYS: No - Related Data Allergies/Adverse Reactions: erythromycin base Allergy (Verified 07/05/19 10:41) hydromorphone [From Dilaudid] Adverse Reaction (Verified 07/05/19 10:41) palpations ketorolac [From Toradol] Adverse Reaction (Verified 07/05/19 10:41) Past Medical History - Social History Chew tobacco use (# tins/day): No Frequency of alcohol use: None Drug Abuse: None - Past Medical History Cardiac Medical History: Reports: Hx DVT, Hx Hypercholesterolemia, Hx Hypertension Neurological Medical History: Reports: Hx Cerebrovascular Accident - TIA Endocrine Medical History: Reports: Hx Diabetes Mellitus Type 2 Renal/ Medical History: Reports: Hx Kidney Stones. Denies: Hx Peritoneal Dialysis GI Medical History: Reports: Hx Cirrhosis, Hx Hepatitis - History of hepatitis C . He has had treatment. Musculoskeltal Medical History: Reports Hx Arthritis Infectious Medical History: Reports: Hx Hepatitis - History of hepatitis C. He has had treatment. Past Surgical History: Reports: Hx Abdominal Surgery - hernia, Hx Appendectomy, Hx Cholecystectomy, Hx Kidney (Renal Surgery) - kidney stones, bilateral ureteral stents on 02/08/2019, Hx Orthopedic Surgery - Has had cervical spine surgery, r Knee Replacement, Hx Vascular Surgery - removal of DVTs in legs, IVC filter placed - Immunizations Immunizations up to date: Yes Hx Diphtheria, Pertussis, Tetanus Vaccination: Yes Physical Exam - General Notes: Flank pain, right lower costal tenderness Doctor's Discharge - Discharge Referrals: STEVEN VILLALOBOS MD [Primary Care Provider] - Follow up as needed
--- NOTE | 2019-07-05 11:46 | RADIOLOGY REPORT (SQ) ---
EXAM DESCRIPTION: RIBS RIGHT W/PA CHEST COMPLETED DATE/TIME: 07/05/2019 11:33 am REASON FOR STUDY: fall, r rib pain COMPARISON: PA and lateral views of the chest from 05/25/2019. TECHNIQUE: Frontal view of the chest and additional views of the right ribs acquired. NUMBER OF VIEWS: Three view. LIMITATIONS: None. FINDINGS: FRONTAL CXR: The cardiomediastinal silhouette and pulmonary vasculature are within normal limits given the low inspiratory lung volumes. There is no consolidation, pleural effusion or pneumo thorax. RIBS: No displaced rib fracture or osseous lesion. OTHER: Cholecystectomy clips in the right upper quadrant. IMPRESSION: 1. No acute cardiopulmonary process. 2. No displaced right rib fracture. COMMENT: SITE OF TRAUMA/COMPLAINT MARKED/STAMP COMPLETED: NO. TECHNICAL DOCUMENTATION: JOB ID: [id number] [employer]- All Rights Reserved Reading location - IP/workstation name: [email or web address]
[2019-07-05 11:52] LABS: APPEARANCE,URINE CLOUDY; BILIRUBIN,URINE NEGATIVE (NEGATIVE); COLOR,URINE DARK YELLOW; GLUCOSE, URINE NEGATIVE (NEGATIVE); KETONES,URINE NEGATIVE (NEGATIVE); LEUKOCYTE ESTERASE,URINE LARGE (NEGATIVE); NITRITE,URINE NEGATIVE (NEGATIVE); PROTEIN,URINE 100 mg/dL (NEGATIVE); URINE SPECIFIC GRAVITY 1.016; UROBILINOGEN,URINE NEGATIVE mg/dL (<2.0)
--- NOTE | 2019-07-05 12:02 | ER Document Report ---
ED GI/ - General Chief Complaint: Flank Pain Stated Complaint: FALL/RIB PAIN Time Seen by Provider: 07/05/19 10:36 Primary Care Provider: STEVEN ANDERSON MD [Primary Care Provider] - Follow up as needed JAIRON TAYLOR MD [ACTIVE STAFF] - Follow up as needed JOSE DAVID TRAORE MD [ACTIVE STAFF] - Follow up as needed KATYA AGUERO MD [ACTIVE STAFF] - Follow up as needed Mode of Arrival: Ambulatory Notes: Patient is a 58-year-old male with a history of DVT, hypertension, hep C who presents to the emergency department with a chief complaint of bilateral flank pain and right anterior rib pain. Patient reports 3 months ago he was seen by Dr. Dai at [place] and was told he had 2 stones in the right kidney and 2 stones in the left kidney. Patient reports he did have 2 stents placed on each side. Patient reports he has had these for 3 months and has not followed up with the urologist. Patient reports for 3 months he has had bilateral flank pain, urinary frequency and blood in the urine. Patient reports at times he will have blood clot in the urine. Patient reports he has been urinating able to empty his bladder. Patient reports due to his hep C and bad liver he does valentin ve a low platelet count. Patient reports his platelet count is normally in the 20s. Patient states that due to the urinary frequency throughout the night he is extremely tired. Patient reports 3 nights ago he was sitting on a stepstool when he fell asleep and fell onto the ground. Patient reports he did strike the right anterior ribs. Patient reports right rib pain is worse with movement coug h or deep breathing. Patient did call his primary care physician Dr. Anderson who told him to come to the emergency department for evaluation. Patient denies fever, nausea, vomiting or diarrhea. TRAVEL OUTSIDE OF THE [place] IN LAST 30 DAYS: No - Related Data Allergies/Adverse Reactions: erythromycin base Allergy (Verified 07/05/19 10:41) hydromorphone [From Dilaudid] Adverse Reaction (Verified 07/05/19 10:41) palpations ketorolac [From Toradol] Adverse Reaction (Verified 07/05/19 10:41) Past Medical History - General Information source: Patient - Social History Smoking Status: Current Every Day Smoker Chew tobacco use (# tins/day): No Frequency of alcohol use: None Drug Abuse: None Lives with: Family Family History: Reviewed & Not Pertinent Patient has suicidal ideation: No Patient has homicidal ideation: No - Past Medical History Cardiac Medical History: Reports: Hx DVT, Hx Hypercholesterolemia, Hx Hypertension Pulmonary Medical History: Reports: None EENT Medical History: Reports: None Neurological Medical History: Reports: Hx Cerebrovascular Accident - TIA Endocrine Medical History: Reports: Hx Diabetes Mellitus Type 2 Renal/ Medical History: Reports: Hx Kidney Stones. Denies: Hx Peritoneal Dialysis Malignancy Medical History: Reports None GI Medical History: Reports: Hx Cirrhosis, Hx Hepatitis - History of hepatitis C. He has had treatment. Musculoskeletal Medical History: Reports Hx Arthritis Skin Medical History: Reports None Psychiatric Medical History: Reports: None Traumatic Medical History: Reports: None Infectious Medical History: Reports: Hx Hepatitis - History of hepatitis C. He has had treatment. Past Surgical History: Reports: Hx Abdominal Surgery - hernia, Hx Appendectomy, Hx Cholecystectomy, Hx Kidney (Renal Surgery) - kidney stones, bilateral ureteral stents on 02/08/2019, Hx Orthopedic Surgery - Has had cervical spine surgery, r Knee Replacement, Hx Vascular Surgery - removal of DVTs in legs, IVC filter placed - Immunizations Immunizations up to date: Yes Hx Diphtheria, Pertussis, Tetanus Vaccination: Yes Review of Systems - Review of Systems Constitutional: No symptoms reported EENT: No symptoms reported Cardiovascular: No symptoms reported Respiratory: See HPI Gastrointestinal: No symptoms reported Genitourinary: See HPI Male Genitourinary: No symptoms reported Musculoskeletal: No symptoms reported Skin: No symptoms reported Hematologic/Lymphatic: See HPI Neurological/Psychological: No symptoms reported Physical Exam - Vital signs Vitals: Temp Pulse Resp BP Pulse Ox 97.8 F 60 18 147/77 H 100 07/05/19 10:34 07/05/19 10:34 07/05/19 10:34 07/05/19 10:34 07/05/19 10:34 - Notes Notes: GENERAL: Well-appearing, well-nourished and in no acute distress. HEAD: Atraumatic, normocephalic. EYES: Pupils equal round and reactive to light, extraocular movements intact, sclera anicteric, conjunctiva are normal. ENT: Nares patent, oropharynx clear without exudates. Moist mucous membranes. NECK: Normal range of motion, supple without lymphadenopathy or JVD. LUNGS: Breath sounds clear to auscultation bilaterally and equal. No wheezes rales or rhonchi. Patient does have tenderness to the right anterior ribs with palpation. There is no palpable subcutaneous emphysema or crepitus. There is no ecchymosis, edema or erythema noted to the chest wall. HEART: Regular rate and rhythm without murmurs, rubs or gallops. ABDOMEN: Soft, round, nontender, normoactive bowel sounds. No guarding, no rebound. No masses appreciated. BACK: No cervical, thoracic, lumbar midline tenderness. No saddle anesthesia, normal distal neurovascular exam. + CVA tenderness on right. GENITOURINARY: Deferred. EXTREMITIES: Normal range of motion, no pitting or edema. No clubbing or cyanosis. NEUROLOGICAL: Cranial nerves II through XII grossly intact. Normal speech, normal gait. PSYCH: Normal mood, normal affect. SKIN: Warm, Dry, normal turgor, no rashes or lesions noted. Course - Re-evaluation Re-evalutation: 07/05/19 13:06 Patient does have a urinary tract infection. Will give dose of Rocephin. Patient no acute distress. Patient has multiple questions regarding liver transplant and his cirrhosis. I did inform the patient that his primary care physician could potentially put in a referral to be evaluated by the transplant team up at [facility] and [place]. I did inform him that he may need a field health officer to follow his liver function if the primary care physician did not feel comfortable doing so. Patient reports he does have a primary care physician Dr. Anderson. 07/05/19 15:37 Spoke with [facility] to [facility] for consult. Patient reports his surgeon was Dr. Dai at [facility] three months ago when he had the stents pl aced. 07/05/19 15:[address] Dai urologist at [facility]. He reports he did place the ureteral stents back in January not ultimately these need to come out and that the patient does have known ureteral stones. He does not recommend any other imaging at this time. He agrees with the work-up that has been performed. He reports that if the patient did have a stone and that they could not treat it at this time due to the infection. He recommends the patient have strict urology follow-up, strict return precautions, treat the urinary tract infection. I did make him aware of the mild hydronephrosis on the right side. Patient is hemodynamically stable without tachycardia, fever, hypotension. I did discuss the results with the patient. Informed him that he does need follow-up. 07/05/19 16:20 Upon discharge patient was going to get a [place] to go back. I did review his medication list and recent prescriptions. Patient was given a prescription for oxycodone IR from his primary care physician. This was 15 mg twice a day for 30-day dose. He is not supposed to run out until July 11. Patient reports he did run out as he has been in pain. I did inform him that I would not prescribe any medication to go home with that he is to follow-up with his primary care physician or pain management as previous discussed by his PCP. Patient upset and reports that he is extremely frustrated that he is hurting and that no one will give him pain medication. I did inform the patient I would give him 1 dose of pain medication while he is here in the emergency department ultimately he needs to follow-up with the urologist to have the stents removed and to treat the urinary tract infection. I did make it aware that I will not prescribe narcotics. - Vital Signs Vital signs: Temp Pulse Resp BP Pulse Ox 97.7 F 53 L 15 150/88 H 100 07/05/19 16:07 07/05/19 16:07 07/05/19 16:07 07/05/19 16:07 07/05/19 16:07 - Laboratory Result Diagrams: 07/05/19 11:35 07/05/19 11:35 Laboratory results interpreted by me: 07/05/19 07/05/19 07/05/19 11:15 11:35 11:35 RBC 3.99 L Hgb 12.9 L Hct 37.3 L RDW 14.9 H Plt Count 53 L PT Chloride 112 H Anion Gap 4 L Alkaline Phosphatase 128 H Albumin 3.0 L Urine Protein 100 H Urine Blood LARGE H Ur Leukocyte Esterase LARGE H 07/05/19 11:35 RBC Hgb Hct RDW Plt Count PT 17.6 H Chloride Anion Gap Alkaline Phosphatase Albumin Urine Protein Urine Blood Ur Leukocyte Esterase - Diagnostic Test Radiology reviewed: Reports reviewed Radiology results interpreted by me: 07/05/19 12:02 Ribs w/Chest X-Ray 07/05/19 10:46 IMPRESSION: 1. No acute cardiopulmonary process. 2. No displaced right rib fracture. Discharge - Discharge Clinical Impression: Bilateral flank pain, Urinary frequency Hematuria Qualifiers: Hematuria type: unspecified type Qualified Code(s): R31.9 - Hematuria, unspecified Urinary tract infection Qualifiers: Urinary tract infection type: site unspecified Hematuria presence: with hematuria Qualified Code(s): N39.0 - Urinary tract infection, site not specified Hydronephrosis Qualifiers: Hydronephrosis type: unspecified Qualified Code(s): N13.30 - Unspecified hydronephrosis Condition: Stable Disposition: HOME, SELF-CARE Additional Instructions: Today you are seen in the emergency department for bilateral flank pain and rib pain. We did obtain an x-ray of the chest and ribs which was negative for any acute rib fracture. Your symptoms are most likely consistent with a deep tissue contusion or rib contusion. This can be very painful over the next few weeks. Please cough and take a deep breaths to prevent pneumonia. I did speak with Dr. Dai in regards to your ultrasound, blood work and ultimately he states that you need to follow-up with urology as the stents do need to be removed. He states to treat the urinary tract infection and to call his office tomorrow to make a follow-up appointment. Please return if you develop a fever, inability to urinate, severe back pain, vomiting, dizziness or any other concerns. Dr. Donald Dai [facility] [address] [place], [place] [id number] [phone] In regards to your cirrhosis you may need a referral to gastroenterology or a specialist from your primary care physician. Please follow-up with your primary care physician. Urinary Tract Infection Your evaluation indicates that you have a urinary tract infection. This is due to germs growing in the bladder. This is a common problem. This infection usually responds quickly to antibiotics. Your antibiotic should be taken exactly as prescribed. Drink plenty of fluids -- three to four quarts a day. Occasionally, a bladder anesthetic will be prescribed to help stop the feeling of urgency until the antibiotic has a chance to clear the infection. This may cause your urine to be dark orange. Certain urine infections require a culture. If the doctor obtained a culture, the results will be back in two days. You should call to see if a change in treatment is needed. A repeat urinalysis after you finish treatment is often recommended. The physician will let you know if further testing is required. Call the doctor if you develop fever, chills, flank pain, inability to urinate, or blood in the urine. Prescriptions: Cephalexin Monohydrate [Keflex 500 mg Capsule] 500 mg PO QID 10 Days #40 capsule Referrals: STEVEN ANDERSON MD [Primary Care Provider] - Follow up as needed JAIRON TAYLOR MD [ACTIVE STAFF] - Follow up as needed KATYA AGUERO MD [ACTIVE STAFF] - Follow up as needed JOSE DAVID TRAORE MD [ACTIVE STAFF] - Follow up as needed
[2019-07-05 12:13] LABS: ABSOLUTE EOSINOPHILS # (AUTO) 0.2 10^3/uL (0.0-0.6); ABSOLUTE LYMPHOCYTES (AUTO) 1.3 10^3/uL (0.5-4.7); ABSOLUTE MONOCYTES (AUTO) 0.5 10^3/uL (0.1-1.4); ABSOLUTE NEUT (AUTO) 3.1 10^3/uL (1.7-8.2); BASOPHILS % (AUTO) 0.3 % (0-2); EOSINOPHILS % (AUTO) 3.3 % (0-6); HEMATOCRIT 37.3 % (37.9-51.0); HEMOGLOBIN 12.9 g/dL (13.5-17.0); MEAN CORPUSCULAR HEMOGLOBIN 32.3 pg (27.0-33.4); MEAN CORPUSCULAR HGB CONC 34.5 g/dL (32.0-36.0); MEAN CORPUSCULAR VOLUME 94 fl (80-97); MONOCYTES % (AUTO) 9.3 % (3-13); RED BLOOD COUNT 3.99 10^6/uL (4.35-5.55); RED CELL DISTRIBUTION WIDTH 14.9 % (11.5-14.0); SEGMENTED NEUTROPHILS % (AUTO) 61.1 % (42-78); TOTAL CELLS COUNTED % (AUTO) 100 %
[2019-07-05 12:27] LABS: ALKALINE PHOSPHATASE 128 U/L (38-126); ASPARTATE AMINO TRANSFERASE 44 U/L (17-59); BILIRUBIN,DIRECT 0.3 mg/dL (0.0-0.4); BILIRUBIN,TOTAL 1.3 mg/dL (0.2-1.3); BLOOD UREA NITROGEN 9 mg/dL (7-20); CALCIUM 8.6 mg/dL (8.4-10.2); GLUCOSE 95 mg/dL (75-110); POTASSIUM 4.2 mmol/L (3.6-5.0); TOTAL PROTEIN 6.5 g/dL (6.3-8.2)
[2019-07-05 12:33] LABS: CARBON DIOXIDE 25 mmol/L (22-30); CHLORIDE 112 mmol/L (98-107)
[2019-07-05 12:35] LABS: INTERNATIONAL RATION (INR) 1.43; PARTIAL THROMBOPLASTIN TIME 33.6 SEC (23.5-35.8); PROTHROMBIN TIME 17.6 SEC (11.4-15.4)
[2019-07-05 12:37] LABS: ANION GAP 4 (5-19)
[2019-07-05] MEDS ORDERED: CEFTRIAXONE 1 GM/D5W RTU 1 GM/50 ML RTUPB IV ONE (12:39)
[2019-07-05] MEDS ORDERED: MORPHINE SULFATE 10 MG/ML INJ IV ONE (12:42)
[2019-07-05] MEDS ORDERED: ONDANSETRON HCL INJ/PF 4 MG/2 ML SDV IV ONE (12:42)
[2019-07-05 12:47] LABS: PLATELET COUNT 53 10^3/uL (150-450)
--- NOTE | 2019-07-05 15:22 | RADIOLOGY REPORT (SQ) ---
EXAM DESCRIPTION: U/S RETROPERITON (RENAL/AORTA) COMPLETED DATE/TIME: 07/05/2019 3:04 pm REASON FOR STUDY: b/l flank pain COMPARISON: 06/10/2019 TECHNIQUE: Dynamic and static grayscale images acquired of the kidneys and bladder and recorded on P ACS. Additional selected color Doppler and spectral images recorded. LIMITATIONS: None. FINDINGS: RIGHT KIDNEY: Normal size, 12 cm. Mild hydronephrosis. No calculi. No mass. LEFT KIDNEY: Normal size, no hydronephrosis, no calculi. No mass. BLADDER: The bladder is not well filled. No obvious mass. Ureteral jets are not seen. OTHER FINDINGS: No other significant finding. IMPRESSION: Mild right hydronephrosis. TECHNICAL DOCUMENTATION: JOB ID: [id number] [employer]- All Rights Reserved Reading location - IP/workstation name: [email or web address]
[2019-07-05] MEDS ORDERED: HYDROCODONE/ACETAMINOPHEN 5-325 MG (6 TAB/ER DISP) PO PRN (15:52)
[2019-07-05 16:17] VITALS: BP 150/88
[2019-07-05] MEDS ORDERED: OXYCODONE HCL IR 5 MG TABLET PO ONE (16:22)
== END 2019-07-05 16:30 | disposition home or self-care (01) ==
LOC: ER 10:28
DX: N39.0 Urinary tract infection, site not specified (principal); R31.9 Hematuria, unspecified; R07.81 Pleurodynia; W08.XXXA Fall from other furniture, initial encounter; D69.6 Thrombocytopenia, unspecified; R35.0 Frequency of micturition; N13.30 Unspecified hydronephrosis; R10.9 Unspecified abdominal pain; I10 Essential (primary) hypertension; F17.200 Nicotine dependence, unspecified, uncomplicated; E11.9 Type 2 diabetes mellitus without complications; Z87.442 Personal history of urinary calculi; Z96.0 Presence of urogenital implants; Z88.1 Allergy status to other antibiotic agents
CPT/HCPCS: 36415; 85025; 85610; 85730; 80053; 81001; 71101; 76770; J2270; J2405; J0696; A9270; 87086; 96365; 96375; 99284

== ENCOUNTER 2019-07-15 23:15 | Emergency (ER) | payer MEDICARE ==
[2019-07-15 23:57] VITALS: BP 166/87
[2019-07-16 00:22] LABS: APPEARANCE,URINE SLIGHTLY-CLOUDY; BILIRUBIN,URINE NEGATIVE (NEGATIVE); COLOR,URINE RED; GLUCOSE, URINE NEGATIVE (NEGATIVE); KETONES,URINE NEGATIVE (NEGATIVE); LEUKOCYTE ESTERASE,URINE SMALL (NEGATIVE); NITRITE,URINE NEGATIVE (NEGATIVE); PROTEIN,URINE 100 mg/dL (NEGATIVE); UROBILINOGEN,URINE NEGATIVE mg/dL (<2.0)
[2019-07-16 00:23] LABS: ABSOLUTE EOSINOPHILS # (AUTO) 0.1 10^3/uL (0.0-0.6); ABSOLUTE LYMPHOCYTES (AUTO) 1.1 10^3/uL (0.5-4.7); ABSOLUTE MONOCYTES (AUTO) 0.7 10^3/uL (0.1-1.4); ABSOLUTE NEUT (AUTO) 3.7 10^3/uL (1.7-8.2); BASOPHILS % (AUTO) 0.1 % (0-2); EOSINOPHILS % (AUTO) 2.3 % (0-6); HEMATOCRIT 34.7 % (37.9-51.0); LYMPHOCYTES % (AUTO) 19.2 % (13-45); MEAN CORPUSCULAR HEMOGLOBIN 32.6 pg (27.0-33.4); MEAN CORPUSCULAR HGB CONC 34.5 g/dL (32.0-36.0); MEAN CORPUSCULAR VOLUME 95 fl (80-97); MONOCYTES % (AUTO) 12.4 % (3-13); RED BLOOD COUNT 3.67 10^6/uL (4.35-5.55); RED CELL DISTRIBUTION WIDTH 15.1 % (11.5-14.0); TOTAL CELLS COUNTED % (AUTO) 100 %; WHITE BLOOD COUNT 5.7 10^3/uL (4.0-10.5)
[2019-07-16 00:35] LABS: ALBUMIN 2.8 g/dL (3.5-5.0); ALKALINE PHOSPHATASE 108 U/L (38-126); ANION GAP 5 (5-19); ASPARTATE AMINO TRANSFERASE 51 U/L (17-59); BILIRUBIN,DIRECT 0.2 mg/dL (0.0-0.4); BILIRUBIN,TOTAL 1.2 mg/dL (0.2-1.3); BLOOD UREA NITROGEN 8 mg/dL (7-20); CALCIUM 8.9 mg/dL (8.4-10.2); CARBON DIOXIDE 23 mmol/L (22-30); CHLORIDE 111 mmol/L (98-107); GLUCOSE 118 mg/dL (75-110); POTASSIUM 4.3 mmol/L (3.6-5.0); TOTAL PROTEIN 6.2 g/dL (6.3-8.2)
[2019-07-16 00:47] LABS: PLATELET COUNT 37 10^3/uL (150-450)
== END 2019-07-16 02:38 | disposition left against medical advice (07) ==
LOC: ER 23:15
DX: Z53.21 Procedure and treatment not carried out due to patient leaving prior to being seen by health care provider (principal)
CPT/HCPCS: 36415; 80053; 81001; 83690; 85025

== ENCOUNTER 2019-07-16 05:09 | Emergency (ER) | payer MEDICARE ==
[2019-07-16 05:16] VITALS: BP 144/78
--- NOTE | 2019-07-16 07:39 | ER Document Report ---
HPI - HPI Time Seen by Provider: 07/16/19 06:56 Pain Level: 5 Notes: Patient is a 58-year-old male who is very well-known to our facility presenting to the emergency department with complaints of bilateral flank pain. Patient has a history of having renal stents in place that he for some reason has not had removed. Patient reports he has been seen by multiple urologists and is currently seeing a urologist with [facility]. He states he is currently taking antibiotics. He is also taking chronic pain medications as prescribed by his primary care provider. He has recently had several prescriptions filled for oxycodone 10 mg tablets. He denies any fevers, chills, nausea or vomiting. He did check into in this emergency department approximately 6 hours ago where he had blood work and urine ordered and resulted but did not stay to see a provider. - URINARY Urinary: REPORTS: Dysuria, Frequency. DENIES: Urgency - REPRODUCTIVE Reproductive: DENIES: : Past Medical History - General Information source: Patient - Social History Smoking Status: Current Every Day Smoker Chew tobacco use (# tins/day): No Frequency of alcohol use: None Drug Abuse: None Family History: Reviewed & Not Pertinent Patient has suicidal ideation: No Patient has homicidal ideation: No - Past Medical History Cardiac Medical History: Reports: Hx DVT, Hx Hypercholesterolemia, Hx Hypertension Neurological Medical History: Reports: Hx Cerebrovascular Accident - TIA Endocrine Medical History: Reports: Hx Diabetes Mellitus Type 2 Renal/ Medical History: Reports: Hx Kidney Stones. Denies: Hx Peritoneal Dialysis GI Medical History: Reports: Hx Cirrhosis, Hx Hepatitis - History of hepatitis C. He has had treatment. Musculoskeletal Medical History: Reports Hx Arthritis Infectious Medical History: Reports: Hx Hepatitis - History of hepatitis C. He has had treatment. Past Surgical History: Reports: Hx Abdominal Surgery - hernia, Hx Appendectomy, Hx Cholecystectomy, Hx Kidney (Renal Surgery) - kidney stones, bilateral ureteral stents on 02/08/2019, Hx Orthopedic Surgery - Has had cervical spine surgery, r Knee Replacement, Hx Vascular Surgery - removal of DVTs in legs, IVC filter placed - Immunizations Immunizations up to date: Yes Hx Diphtheria, Pertussis, Tetanus Vaccination: Yes Vertical Provider Document - CONSTITUTIONAL Notes: PHYSICAL EXAMINATION: GENERAL: Well-appearing, well-nourished and in no acute distress. HEAD: Atraumatic, normocephalic. EYES: Pupils equal round and reactive to light, extraocular movements intact, sclera anicteric, conjunctiva are normal. ENT: Nares patent, oropharynx clear without exudates. Moist mucous membranes. NECK: Normal range of motion, supple without lymphadenopathy LUNGS: Breath sounds clear to auscultation bilaterally and equal. No wheezes rales or rhonchi. HEART: Regular rate and rhythm without murmurs ABDOMEN: Soft, nontender, nondistended abdomen. No guarding, no rebound. No masses appreciated. Left CVA tenderness. Musculoskeletal: Normal range of motion, no pitting or edema. No cyanosis. NEUROLOGICAL: Cranial nerves grossly intact. Normal speech, normal gait. Normal sensory, motor exams PSYCH: Normal mood, normal affect. SKIN: Warm, Dry, normal turgor, no rashes or lesions noted. - INFECTION CONTROL TRAVEL OUTSIDE OF THE [place] IN LAST 30 DAYS: No Course - Re-evaluation Re-evalutation: I did not order new labs as patient was seen approximately 6 hours ago by the triage nurse but left without being seen by provider. His labs are as recorded below. His urine is consistent with previous visits. I did order a urine culture to be added to the urine. He denies any fevers, chills, nausea or vomiting. There is no indication at this time for further work-up. I encouraged patient to please follow-up with his urologist for his chronic renal complaints and to please follow-up with his primary care provider regarding further pain management and I informed the patient that once again we do not treat chronic pain in the emergency department. Patient verbalized understanding and agreement with this plan. I did offer him a prescription for Toradol at which point he told me that he cannot take Toradol because it makes him nauseated. I did offer to write him a prescription for Toradol with a prescription for Zofran which patient agreed to. The patient's emergency department workup and current diagnosis were explained to the patient and or family. Follow-up instructions were provided. Medications if prescribed were discussed. Instructions for when to return to the emergency department including specific worrisome symptoms were discussed with the patient and/or family. - Vital Signs Vital signs: Temp Pulse Resp BP Pulse Ox 97.8 F 97 18 144/78 H 98 07/16/19 05:13 07/16/19 05:13 07/16/19 05:13 07/16/19 05:13 07/16/19 05:13 Discharge - Discharge Clinical Impression: Flank pain Condition: Stable Disposition: HOME, SELF-CARE Additional Instructions: Please keep the follow-up appointment you have with Dr. Villalobos for Thursday. A urine culture is pending. You have stated that the reaction you have with Toradol is that it makes you nauseated. Please take the nausea medication prior to taking the Toradol. Please follow-up with your urologist for your continued chronic flank pain and chronic urinary tract infections. Prescriptions: Ondansetron [Zofran Odt 4 mg Tablet] 1 - 2 tab PO Q4HP PRN #10 tab.rapdis PRN Reason: Ketorolac Tromethamine [Toradol 10 mg Tablet] 10 mg PO Q6HP PRN #20 tablet PRN Reason: Referrals: STEVEN VILLALOBOS MD [Primary Care Provider] - Follow up as needed
== END 2019-07-16 07:50 | disposition home or self-care (01) ==
LOC: ER 05:09
DX: R10.9 Unspecified abdominal pain (principal); G89.29 Other chronic pain; R30.0 Dysuria; R35.0 Frequency of micturition; Z79.899 Other long term (current) drug therapy; F17.200 Nicotine dependence, unspecified, uncomplicated; I10 Essential (primary) hypertension; E11.9 Type 2 diabetes mellitus without complications
CPT/HCPCS: 87086; 87088; 87186; 99283

== ENCOUNTER 2019-07-23 18:53 | Emergency (ER) | payer MEDICARE ==
[2019-07-23] MEDS ORDERED: OXYCODONE HCL IR 5 MG TABLET PO ONE (19:09)
--- NOTE | 2019-07-23 19:10 | ER Document Report ---
ED Medical Screen (RME) - General Chief Complaint: Flank Pain Stated Complaint: FLANK PAIN Time Seen by Provider: 07/23/19 19:04 Primary Care Provider: STEVEN VILLALOBOS MD [Primary Care Provider] - Follow up as needed Information source: Patient Notes: Patient presents complaining of left flank pain that started yesterday. Patient reports dark urine. Patient denies any fever nausea or vomiting. Patient states he has a history of kidney stones as well as ureteral stents. Patient states because of his low platelets and the urologist will not remove his stents. Patient also reports a history of liver failure. I have greeted and performed a rapid initial assessment of this patient. A comprehensive ED assessment and evaluation of the patient, analysis of test results and completion of the medical decision making process will be conducted by additional ED providers. TRAVEL OUTSIDE OF THE [place] IN LAST 30 DAYS: No - Related Data Allergies/Adverse Reactions: erythromycin base Allergy (Verified 07/05/19 10:41) hydromorphone [From Dilaudid] Adverse Reaction (Verified 07/05/19 10:41) palpations ketorolac [From Toradol] Adverse Reaction (Verified 07/05/19 10:41) Past Medical History - Past Medical History Cardiac Medical History: Reports: Hx DVT, Hx Hypercholesterolemia, Hx Hypertension Neurological Medical History: Reports: Hx Cerebrovascular Accident - TIA Endocrine Medical History: Reports: Hx Diabetes Mellitus Type 2 Renal/ Medical History: Reports: Hx Kidney Stones. Denies: Hx Peritoneal Dialysis GI Medical History: Reports: Hx Cirrhosis, Hx Hepatitis - History of hepatitis C. He has had treatment. Musculoskeltal Medical History: Reports Hx Arthritis Infectious Medical History: Reports: Hx Hepatitis - History of hepatitis C. He has had treatment. Past Surgical History: Reports: Hx Abdominal Surgery - hernia, Hx Appendectomy, Hx Cholecystectomy, Hx Kidney (Renal Surgery) - kidney stones, bilateral ureteral stents on 02/08/2019, Hx Orthopedic Surgery - Has had cervical spine surgery, r Knee Replacement, Hx Vascular Surgery - removal of DVTs in legs, IVC filter placed - Immunizations Immunizations up to date: Yes Hx Diphtheria, Pertussis, Tetanus Vaccination: Yes Physical Exam - Vital signs Vitals: Temp Pulse Resp BP Pulse Ox 97.7 F 88 22 H 166/90 H 100 07/23/19 18:57 07/23/19 18:57 07/23/19 18:57 07/23/19 18:57 07/23/19 18:57 - Back Back: CVA tenderness - Left worse than right Course - Vital Signs Vital signs: Temp Pulse Resp BP Pulse Ox 97.7 F 88 22 H 166/90 H 100 07/23/19 18:57 07/23/19 18:57 07/23/19 18:57 07/23/19 18:57 07/23/19 18:57 Doctor's Discharge - Discharge Referrals: STEVEN VILLALOBOS MD [Primary Care Provider] - Follow up as needed
--- NOTE | 2019-07-23 20:03 | ER Document Report ---
ED General - General Chief Complaint: Flank Pain Stated Complaint: FLANK PAIN Time Seen by Provider: 07/23/19 19:04 Primary Care Provider: STEVEN VILLALOBOS MD [Primary Care Provider] - Follow up as needed TRAVEL OUTSIDE OF THE [place] IN LAST 30 DAYS: No - HPI Notes: Patient is a 58-year-old male that presents to the emergency department for chief complaint of bilateral flank pain. Patient reports history of chronic pain in his back and states he came to the emergency room for pain control. He states his primary care doctor gave him a prescription for oxycodone 15 mg tablets but he has been out for the last 15 days. He states the pain has become intolerable. Patient has not been trying [id number] medicines for his pain. He states he does have an appointment with his urologist for follow-up regarding chronic issues with ureteral stents. Patient states he does not feel like he can wait to see his urologist to discuss his pain. He does state he is currently being referred to pain management by Dr. Villalobos who is prescribing his pain medicines at this point. Patient does report hematuria but denies change in the amount of blood. He denies any urinary retention symptoms. He denies fever and chills. He denies any current abdominal pain or vomiting. Patient states his pain is constant bilateral and in his low back. He denies aggravating or relieving factors. Past Medical History: Cirrhosis, hepatitis C Past Surgical History: Ureteral stent Social History: Denies tobacco drug and alcohol use Family History: Reviewed and noncontributory for presenting illness Allergies: Reviewed, see documented allergy list. REVIEW OF SYSTEMS: CONSTITUTIONAL : No fever No chills No diaphoresis No recent illness EENT: No vision changes No congestion No sore throat CARDIOVASCULAR: No chest pain No palpitations RESPIRATORY: No shortness of breath No cough No difficulty breathing GASTROINTESTINAL: No abdominal pain No nausea No vomiting No diarrhea GENITOURINARY: No dysuria hematuria urine frequency No difficulty urinating MUSCULOSKELETAL: back pain No leg pain No arm pain SKIN: No rashes No lesions LYMPHATIC: No swollen, enlarged glands. NEUROLOGICAL: No lightheadedness No headache No weakness No paresthesias PSYCHIATRIC: No anxiety No depression PHYSICAL EXAMINATION: Vital signs reviewed, nursing noted reviewed. GENERAL: Well-appearing, well-nourished and in no acute distress. HEAD: Atraumatic, normocephalic. EYES: Eyes appear normal, extraocular movements intact, sclera anicteric, conjunctiva are normal. ENT: nares patent, oropharynx clear without exudates. Moist mucous membranes. NECK: Normal range of motion, supple without lymphadenopathy LUNGS: Breath sounds clear to auscultation bilaterally and equal. No wheezes rales or rhonchi. HEART: Regular rate and rhythm without murmurs ABDOMEN: protuberant, Soft, nontender. No rebound, guarding, or rigidity. No masses appreciated. Back: No midline thoracic or lumbar tenderness, normal range of motion, bilateral paraspinal lumbar tenderness EXTREMITIES: Nontender, good range of motion. bilateral pitting edema NEUROLOGICAL: No focal neurological deficits. Moves all extremities spontaneously Motor and sensory grossly intact on exam. PSYCH: Anxious mood, normal affect. SKIN: Warm, Dry, normal turgor, no rashes or lesions noted on exposed skin - Related Data Allergies/Adverse Reactions: erythromycin base Allergy (Verified 07/05/19 10:41) hydromorphone [From Dilaudid] Adverse Reaction (Verified 07/05/19 10:41) palpations ketorolac [From Toradol] Adverse Reaction (Verified 07/05/19 10:41) Past Medical History - General Information source: Patient - Social History Smoking Status: Unknown if Ever Smoked Family History: Reviewed & Not Pertinent Patient has suicidal ideation: No Patient has homicidal ideation: No - Past Medical History Cardiac Medical History: Reports: Hx DVT, Hx Hypercholesterolemia, Hx Hypertension Neurological Medical History: Reports: Hx Cerebrovascular Accident - TIA Endocrine Medical History: Reports: Hx Diabetes Mellitus Type 2 Renal/ Medical History: Reports: Hx Kidney Stones. Denies: Hx Peritoneal Dialysis GI Medical History: Reports: Hx Cirrhosis, Hx Hepatitis - History of hepatitis C. He has had treatment. Musculoskeletal Medical History: Reports Hx Arthritis Infectious Medical History: Reports: Hx Hepatitis - History of hepatitis C. He has had treatment. Past Surgical History: Reports: Hx Abdominal Surgery - hernia, Hx Appendectomy, Hx Cholecystectomy, Hx Kidney (Renal Surgery) - kidney stones, bilateral ureteral stents on 02/08/2019, Hx Orthopedic Surgery - Has had cervical spine surgery, r Knee Replacement, Hx Vascular Surgery - removal of DVTs in legs, IVC filter placed - Immunizations Immunizations up to date: Yes Hx Diphtheria, Pertussis, Tetanus Vaccination: Yes Physical Exam - Vital signs Vitals: Temp Pulse Resp BP Pulse Ox 97.7 F 88 22 H 166/90 H 100 07/23/19 18:57 07/23/19 18:57 07/23/19 18:57 07/23/19 18:57 07/23/19 18:57 Course - Re-evaluation Re-evalutation: 07/23/19 20:00 Vitals reviewed. Nurse notes reviewed. Patient is well-appearing, nontoxic and in no acute distress. He ambulates without difficulty or ataxia. He has no spinal tenderness or report of trauma to necessitate spinal imaging. He has no focal neurologic deficits on exam. Patient has had chronic back pain in the same location for the last 7 months. He has had multiple visits to the emergenc y room regarding this. Most recently patient had blood work drawn on 07/15 which showed chronic thrombocytopenia. She has not had any increase in bleeding, lightheadedness or syncopal episodes to suggest acute anemia or decreasing platelet counts to necessitate repeat blood work today since he had blood work drawn about a week ago. Patient is not having any urinary retention symptoms. During my conversation with him he has repeatedly asked me for a prescription for oxycodone 15 mg tablets to take at home. He told me that he was given a 30-day prescription by his PCP and has been out of them for the last 15 days. I did a medication review and he received a prescription on 07/[address] Villalobos that was a 15-day supply. Patient should have only run out of his medication 2 days ago. He has become agitated since I explained the emergency room would not be refilling chronic pain medication and that it was important that his pain medications come from his primary care doctor and pain management. He did have a positive urine culture on the and states that Dr. Villalobos had taken him off of antibiotics. Patient is having urinary frequency and repeat UA and urine culture will be obtained today to evaluate the necessity for antibiotics. Patient did receive oxycodone 5 mg for pain control in triage. 07/23/19 20:22 Patient's UA today compared to the shows increased amount of leukocytes and WBCs. Patient is having urinary frequency and I suspect has underlying infection. He has no signs of sepsis and is nontoxic in appearance. I still do not feel repeat blood work is indicated since he had blood work done last week. Patient's symptoms are chronic in nature and have been ongoing for the last few months. It is important that he follows with urology however I do not have any urology on-call today to help assist him in getting an earlier appointment. Patient will be given Dr. Hernandez's contact information. He states he has an appointment with his urologist which I encouraged him to keep. Patient was counseled on return precautions. He is now threatening to shahid the hospital because he has not been provided a prescription for pain medications. I am concerned Laboratory 07/23/19 19:01 Urine Color DARK YELLOW Urine Appearance CLOUDY Urine pH 6.0 Ur Specific Mallie 1.015 Urine Protein 100 H Urine Glucose (UA) NEGATIVE Urine Ketones TRACE H Urine Blood LARGE H Urine Nitrite (Reflex) NEGATIVE Urine Bilirubin NEGATIVE Urine Urobilinogen 2.0 H Leukocyte Esterase Rfl LARGE H Urine RBC (Auto) >182 Urine WBC (Reflex) > 182 Squamous Epi Cells Auto 4 Urine Mucus (Auto) MANY Urine Ascorbic Acid NEGATIVE given the multiple providers who have written him pain medications over the last few months. At this point I do not feel management of his chronic pain is indicated from the emergency room. I encouraged him to keep his referral with pain management and to consult Dr. Villalobos for further pain control. - Vital Signs Vital signs: Temp Pulse Resp BP Pulse Ox 97.7 F 88 22 H 166/90 H 100 07/23/19 18:57 07/23/19 18:57 07/23/19 18:57 07/23/19 18:57 07/23/19 18:57 - Laboratory Laboratory results interpreted by me: 07/23/19 19:01 Urine Protein 100 H Urine Ketones TRACE H Urine Blood LARGE H Urine Urobilinogen 2.0 H Leukocyte Esterase Rfl LARGE H Discharge - Discharge Clinical Impression: Chronic flank pain, Elevated blood pressure reading, Acute UTI Condition: Stable Disposition: HOME, SELF-CARE Instructions: Urinary Tract Infection ([facility]), Nitrofurantoin ([facility]) Additional Instructions: Please return to the emergency department if you have any worsening, or concern of your symptoms. Please return to the emergency department if you develop fever, inability to urinate, ongoing vomiting, lightheadedness, or increase in bleeding. Please follow-up with your primary care physician Thursday and any other recommended physicians. If prescribed, take all medications as directed. If you have any questions or concerns do not hesitate to return the emergency d epartment for evaluation. You did have an elevated blood pressure reading today. This may be because of pain however it needs to be rechecked at your primary care doctor's office. If you continue to have elevated blood pressure readings you may need to be started on blood pressure medications. A urine culture was ordered today and should be resulted in the next few days. It is important that you follow closely with urology. I have given you Dr. Hernandez's contact information if you wish to follow with him. Prescriptions: Nitrofurantoin Macrocrystal [Macrodantin] 100 mg PO BID #20 capsule Forms: Elevated Blood Pressure Referrals: STEVEN VILLALOBOS MD [Primary Care Provider] - 07/25/19 CARLIN HERNANDEZ MD [NO LOCAL MD] - Follow up as needed
[2019-07-23 20:12] LABS: APPEARANCE,URINE CLOUDY; BILIRUBIN,URINE NEGATIVE (NEGATIVE); GLUCOSE, URINE NEGATIVE (NEGATIVE); KETONES,URINE TRACE mg/dL (NEGATIVE); PROTEIN,URINE 100 mg/dL (NEGATIVE); URINE SPECIFIC GRAVITY 1.015
[2019-07-23 20:13] LABS: COLOR,URINE DARK YELLOW
[2019-07-23] MEDS ORDERED: NITROFURANTOIN MONOHYD/M-CRYST 100 MG CAPSULE PO ONE (20:18)
[2019-07-23 21:01] VITALS: BP 170/90
== END 2019-07-23 21:06 | disposition home or self-care (01) ==
LOC: ER 18:53
DX: N39.0 Urinary tract infection, site not specified (principal); R10.9 Unspecified abdominal pain; G89.29 Other chronic pain; M54.5 Low back pain; I10 Essential (primary) hypertension; Z79.899 Other long term (current) drug therapy; E11.9 Type 2 diabetes mellitus without complications
CPT/HCPCS: 87086; 81001; A9270 ×2; 99284; J8499

== ENCOUNTER 2019-07-26 18:55 | Emergency (ER) | payer MEDICARE | END 2019-07-26 19:34 | disposition left against medical advice (07) | LOC: ER 18:55 | DX: Z53.21 Procedure and treatment not carried out due to patient leaving prior to being seen by health care provider (principal) ==

== ENCOUNTER 2019-08-08 04:28 | Emergency (ER) | payer MEDICARE ==
[2019-08-08 05:47] LABS: APPEARANCE,URINE CLOUDY; BILIRUBIN,URINE NEGATIVE (NEGATIVE); COLOR,URINE RED; GLUCOSE, URINE NEGATIVE (NEGATIVE); KETONES,URINE NEGATIVE (NEGATIVE); LEUKOCYTE ESTERASE,URINE MODERATE (NEGATIVE); NITRITE,URINE NEGATIVE (NEGATIVE); PROTEIN,URINE 100 mg/dL (NEGATIVE); URINE SPECIFIC GRAVITY 1.013
[2019-08-08 05:53] LABS: ABSOLUTE EOSINOPHILS # (AUTO) 0.1 10^3/uL (0.0-0.6); ABSOLUTE LYMPHOCYTES (AUTO) 1.4 10^3/uL (0.5-4.7); ABSOLUTE MONOCYTES (AUTO) 0.5 10^3/uL (0.1-1.4); ABSOLUTE NEUT (AUTO) 2.9 10^3/uL (1.7-8.2); BASOPHILS % (AUTO) 0.1 % (0-2); EOSINOPHILS % (AUTO) 2.2 % (0-6); HEMATOCRIT 32.8 % (37.9-51.0); HEMOGLOBIN 11.3 g/dL (13.5-17.0); MEAN CORPUSCULAR HEMOGLOBIN 32.5 pg (27.0-33.4); MEAN CORPUSCULAR HGB CONC 34.5 g/dL (32.0-36.0); MEAN CORPUSCULAR VOLUME 94 fl (80-97); MONOCYTES % (AUTO) 9.8 % (3-13); RED BLOOD COUNT 3.48 10^6/uL (4.35-5.55); RED CELL DISTRIBUTION WIDTH 15.5 % (11.5-14.0); SEGMENTED NEUTROPHILS % (AUTO) 59.9 % (42-78); TOTAL CELLS COUNTED % (AUTO) 100 %; WHITE BLOOD COUNT 4.8 10^3/uL (4.0-10.5)
[2019-08-08 06:07] LABS: ALBUMIN 2.9 g/dL (3.5-5.0); ALKALINE PHOSPHATASE 91 U/L (38-126); ANION GAP 7 (5-19); ASPARTATE AMINO TRANSFERASE 41 U/L (17-59); BILIRUBIN,DIRECT 0.2 mg/dL (0.0-0.4); BILIRUBIN,TOTAL 1.3 mg/dL (0.2-1.3); BLOOD UREA NITROGEN 11 mg/dL (7-20); CALCIUM 8.4 mg/dL (8.4-10.2); CARBON DIOXIDE 23 mmol/L (22-30); CHLORIDE 110 mmol/L (98-107); GLUCOSE 107 mg/dL (75-110); POTASSIUM 3.8 mmol/L (3.6-5.0); SALICYLATE 1.1 mg/dL (2.0-20.0); TOTAL PROTEIN 6.6 g/dL (6.3-8.2)
[2019-08-08 06:08] LABS: ACETAMINOPHEN < 10 ug/mL (10-30); ALCOHOL < 10 mg/dL (NONE DETECTED)
[2019-08-08 06:17] LABS: URINE AMPHETAMINES SCREEN NEGATIVE; URINE BARBITURATES SCREEN NEGATIVE; URINE BENZODIAZEPINES SCREEN NEGATIVE; URINE COCAINE SCREEN NEGATIVE; URINE MARIJUANA (THC) SCREEN NEGATIVE; URINE METHADONE SCREEN NEGATIVE; URINE PHENCYCLIDINE SCREEN NEGATIVE
[2019-08-08 06:30] LABS: PLATELET COUNT 52 10^3/uL (150-450)
--- NOTE | 2019-08-08 07:07 | EKG REPORT ---
SEVERITY:- ABNORMAL ECG - SINUS RHYTHM PROBABLE POSTERIOR INFARCT : Confirmed by: Karin Peralta 08-Aug-2019 07:06:24
--- NOTE | 2019-08-08 07:53 | ER Document Report ---
Entered by JACK AGUILERA SCRIBE 08/08/19 0622 Acting as scribe for:OSVALDO SYED MD ED Psych Disorder / Suicide - General Chief Complaint: Psych Problem Stated Complaint: SUICIDAL IDEATIONS Time Seen by Provider: 08/08/19 06:12 Primary Care Provider: STEVEN VILLALOBOS MD [Primary Care Provider] - Follow up as needed Information source: Patient Notes: Patient is a 58 year old male that presents to the emergency department today with complaints of suicidal ideation with an attempting hanging prior to arrival. Patient states at around 12:30 or 1:00 am he attempted to hang himself with a rope but was unsuccessful. Patient states "the rope slipped off the door knob". Patient states that he did this because he had a "PTSD attack" regarding "people he could not save". Patient states that he is "tired of hurting physically and mentally". TRAVEL OUTSIDE OF THE [place] IN LAST 30 DAYS: No - Related Data Allergies/Adverse Reactions: erythromycin base Allergy (Verified 08/08/19 04:36) hydromorphone [From Dilaudid] Adverse Reaction (Verified 07/05/19 10:41) palpations ketorolac [From Toradol] Adverse Reaction (Verified 07/05/19 10:41) Past Medical History - General Information source: Patient - Social History Smoking Status: Current Every Day Smoker Cigarette use (# per day): Yes Frequency of alcohol use: None Drug Abuse: None Lives with: Spouse/Significant other Family History: Reviewed & Not Pertinent Patient has suicidal ideation: Yes Patient has homicidal ideation: No - Past Medical History Cardiac Medical History: Reports: Hx DVT, Hx Hypercholesterolemia, Hx Hypertension Neurological Medical History: Reports: Hx Cerebrovascular Accident - TIA Renal/ Medical History: Reports: Hx Kidney Stones GI Medical History: Reports: Hx Cirrhosis, Hx Hepatitis - History of hepatitis C. He has had treatment. Musculoskeletal Medical History: Reports Hx Arthritis Psychiatric Medical History: Reports: Hx Post Traumatic Stress Disorder Infectious Medical History: Reports: Hx Hepatitis - History of hepatitis C. He has had treatment. Past Surgical History: Reports: Hx Abdominal Surgery - hernia, Hx Appendectomy, Hx Cholecystectomy, Hx Kidney (Renal Surgery) - kidney stones, bilateral ureteral stents on 02/08/2019, Hx Orthopedic Surgery - Has had cervical spine surgery, r Knee Replacement, Hx Vascular Surgery - removal of DVTs in legs, IVC filter placed - Immunizations Immunizations up to date: Yes Hx Diphtheria, Pertussis, Tetanus Vaccination: Yes Review of Systems - Review of Systems Constitutional: No symptoms reported EENT: No symptoms reported Cardiovascular: No symptoms reported Respiratory: No symptoms reported Gastrointestinal: No symptoms reported Genitourinary: No symptoms reported Male Genitourinary: No symptoms reported Musculoskeletal: No symptoms reported Skin: No symptoms reported Hematologic/Lymphatic: No symptoms reported Neurological/Psychological: See HPI, Depression, Suicidal ideation -: Yes All other systems reviewed and negative Physical Exam - Vital signs Vitals: Temp Pulse Resp BP Pulse Ox 98.2 F 93 18 157/80 H 99 08/08/19 04:35 08/08/19 04:35 08/08/19 04:35 08/08/19 04:35 08/08/19 04:35 - Notes Notes: Physical Exam: General: Alert, appears depressed. HEENT: Normocephalic. Atraumatic. PERRL. Extraocular movements intact. Oropharynx clear. Neck: Supple. Non-tender. Respiratory: No respiratory distress. Clear and equal breath sounds bilaterally. Cardiovascular: Regular rate and rhythm. Abdominal: Normal Inspection. Non-tender. No distension. Normal Bowel Sounds. Back: Tender to palpation paraspinally which is chronic in nature. Extremities: Moves all four extremities. Upper extremities: Normal inspection. Normal ROM. Lower extremities: Normal inspection. No edema. Normal ROM. Neurological: Normal cognition. AAOx4. Normal speech. Psychological: Depressed. Skin: Warm. Dry. Normal color. Course - Re-evaluation Re-evalutation: 08/08/19 14:57 Reviewing the patient's lab work today shows that his urine has too numerous to count RBCs and WBCs. The patient has had 18 visits in the last 3 months to this emergency room. On each of those visits his urine shows too numerous to count RBCs and too numerous to count WBCs. He does have ureteral stents, and does have polycythemia which contribute to the urinary tract findings. Review of multiple urine cultures would suggest that he should not receive antibiotics unless he shows signs of systemic infection. There is no emergency medical condition noted at this time. He is medically cleared for inpatient psychiatric hospitalization at this time. 08/08/19 16:06 Patient has been accepted by Dr. Hi at [facility] in [place]. - Vital Signs Vital signs: Temp Pulse Resp BP Pulse Ox 98.0 F 60 18 134/76 H 99 08/08/19 13:01 08/08/19 13:01 08/08/19 04:35 08/08/19 13:01 08/08/19 13:01 - Laboratory Result Diagrams: 08/08/19 05:28 08/08/19 05:28 Laboratory results interpreted by me: 08/08/19 08/08/19 08/08/19 05:28 05:28 05:28 RBC 3.48 L Hgb 11.3 L Hct 32.8 L RDW 15.5 H Plt Count 52 L Chloride 110 H Albumin 2.9 L Urine Protein 100 H Urine Blood LARGE H Urine Urobilinogen 4.0 H Ur Leukocyte Esterase MODERATE H Salicylates 1.1 L Acetaminophen < 10 L Discharge - Discharge Clinical Impression: Chronic pain syndrome, Polycythemia, Chronic pyuria, Chronic hematuria Suicide attempt by hanging Qualifiers: Encounter type: initial encounter Qualified Code(s): T71.162A - Asphyxiation due to hanging, intentional self-harm, initial encounter Depression Qualifiers: Depression Type: unspecified Qualified Code(s): F32.9 - Major depressive disorder, single episode, unspecified Condition: Stable Disposition: PSYCH HOSP/UNIT Referrals: STEVEN VILLALOBOS MD [Primary Care Provider] - Follow up as needed Scribe Attestation: 08/08/19 15:02 I personally performed the services described in the documentation, reviewed and edited the documentation which was dictated to the scribe in my presence, and it accurately records my words and actions. I personally performed the services described in the documentation, reviewed and edited the documentation which was dictated to the scribe in my presence, and it accurately records my words and actions.
[2019-08-08] MEDS ORDERED: ATENOLOL 50 MG TABLET PO ONE (07:57)
[2019-08-08] MEDS ORDERED: SPIRONOLACTONE 25 MG TABLET PO ONE (07:59)
[2019-08-08] MEDS ORDERED: TRAMADOL HCL 50 MG TABLET PO ONE (16:01)
--- NOTE | 2019-08-08 16:57 | PSYCHOLOGICAL NOTE ---
Psych Note - Psych Note Date seen by psych provider: 08/08/19 Time seen by psych provider: 08:25 Psych Note: Reason for Consult: Suicidal ideation/attempt Patient is a 58 year old male that presents to the emergency department today with complaints of suicidal ideation with an attempting hanging prior to arrival. Patient states that he is depressed and tired both physically and mentally. He reports that he is tired of hurting the once he loves. He confirms he attempted to hang himself last night but "I do not care." He reports his his found him after the rope slipped and she heard the bang. Patient states that "I do not want to live anymore.... I cannot take it anymore.... I cannot sleep at night.... I am in pain.... I am tired of hurting my and daughter.... I lash out 1 minute and good the next... I lost my dog.... everything I touch dies." Patient reports he wants to leave and that if he is wants to kill himself he can kill himself. Clinician spoke with patient's who discloses concern that the patient attempted to harm her himself. She reports that she heard a bang and went into the bathroom and did not immediately see the rope around the patient's neck. She reports that she saw his eyes bulging and face flushed and knew there was something wrong. She continued report that she is concerned the patient may be bipolar. Patient is alert and orientated to person, place, time and circumstance. Mood is irritable with tearful affect. Patient confirms suicide attempt of trying to hang himself With continued thoughts of self-harm. Patient denies homicidal ideation. Delusions are absent behaviors congruent with an intact reality based presentation i.e. organized linear thought processes. Eye contact is poor. Conversational speech is overall with normal rate, tone and prosody. Intellectual abilities appear to be within the average range. Attention and concentration are fair. Insight, judgment, impulse control are poor. PTSD per history provided by patient No medication recommendations at this time Impression\\plan: Patient is recommended for continued IVC. Patient continues to demonstrate and communicate suicidal ideation. Patient is very irritable with tearful affect and states that if he wants to kill himself he can kill himself. Patient has been accepted to [facility]; transportation has been requested. Dr. Jim was consulted to care management of this patient; attending physicians in agreement with recommendations and disposition.
--- NOTE | 2019-08-08 18:13 | ER Document Report ---
Doctor's Note Notes: 08/08/19 18:12 DAVID present to transfer patient to [facility]. Patient was very upset because he was not given his Percocet for pain control. He was yelling at me while he was eating his dinner without any difficulty sitting up in the bed. Patient was complaining that the tramadol only makes him sick and does not do anything. Patient's vital signs have all been within normal limits. It appears the patient is medically stable for transfer and mental health wishes to discharge patient with close follow-up services in place.
[2019-08-08 18:25] VITALS: BP 147/94
== END 2019-08-08 18:31 ==
LOC: ER 04:28
DX: T71.162A Asphyxiation due to hanging, intentional self-harm, initial encounter (principal); G89.4 Chronic pain syndrome; D75.1 Secondary polycythemia; R82.81 Pyuria; R31.9 Hematuria, unspecified; F32.9 Major depressive disorder, single episode, unspecified; F43.10 Post-traumatic stress disorder, unspecified; F17.210 Nicotine dependence, cigarettes, uncomplicated; I10 Essential (primary) hypertension
CPT/HCPCS: 93005; 99285; 36415; 87086; 80307 ×4; 85025; 87088; 80053; 81001; 87186; 93010; A9270 ×2

== ENCOUNTER → 2019-08-31 | Outpatient (CLI) | payer MEDICARE ==
--- NOTE | 2019-09-01 15:31 | RADIOLOGY REPORT (SQ) ---
EXAM DESCRIPTION: MRI CERVICAL SPINE WITHOUT COMPLETED DATE/TIME: 08/31/2019 8:05 pm REASON FOR STUDY: (M54.12)RADICULOPATHY, CERVICAL REGION M54.12 RADICULOPATHY, CERVICAL REGION COMPARISON: CT CERVICAL SPINE 04/14/2017 CERVICAL SPINE PLAIN RADIOGRAPHS 05/01/2019 TECHNIQUE: Sagittal and Axial imaging includes T1, T2, STIR and gradient echo sequences. LIMITATIONS: None. FINDINGS: ALIGNMENT: Straightening of cervical curvature VERTEBRAE: Intact. BONE MARROW: Normal. No marrow replacement or reactive changes. DISCS: Diffuse decreased T2 weighted intervertebral disc signal HARDWARE: None in the spine. CORD AND BASE OF BRAIN: Normal in size and signal intensity. SOFT TISSUES: No soft tissue masses. C1-C2: No significant spinal stenosis. C2-C3: No significant spinal stenosis or exit foraminal stenosis. C3-C4: Mild diffuse posterior disc bulging, moderate bilateral facet arthropathy is present with effa cement of the CSF around the cervical cord without cord flattening, mild central canal stenosis. Mod erate bilateral foraminal narrowing is present from facet and uncovertebral hypertrophy. On sagittal STIR image 3, and STIR image 12, there is edema along the facet articular processes at the C3-4 face t joint from arthritis. C4-C5: Mild diffuse posterior disc bulging with small central bulge causes mild central canal stenosi s and effaces the ventral thecal sac and abuts the ventral cord with mild ventral cord flattening. N o abnormal intrinsic cord signal. This best shown on axial T2 image 13. Moderate bilateral foramina l narrowing from facet and uncovertebral hypertrophy. C5-C6: Broad diffuse posterior disc bulging left greater than right effaces the ventral thecal sac an d abuts the leftward ventral cord with mild ventral cord flattening but no abnormal intrinsic cord si gnal. Mild central canal narrowing, best shown on axial image 17. Moderate left foraminal narrowing from facet and uncovertebral hypertrophy. No right foraminal stenosis C6-C7: Broad diffuse posterior disc bulge and bony spurring left greater than right effaces the CSF a round the cervical cord without cord flattening or abnormal intrinsic cord signal. Mild central tino l narrowing, best shown on axial T2 image 21. High-grade bilateral C6-7 foraminal narrowing from fac et and uncovertebral hypertrophy left greater than right C7-T1: Asymmetric right paracentral/proximal foraminal disc bulge and bony spurring effaces the theca l sac and abuts the rightward ventral cord with very mild rightward cord flattening. No abnormal int rinsic cord signal. Borderline central canal narrowing best shown on axial T2 image 26. Mild right, moderate left foraminal narrowing at C7-T1 from facet and uncovertebral hypertrophy UPPER THORACIC: Incompletely imaged. No significant spinal stenosis or exit foraminal stenosis. OTHER: No other significant finding. IMPRESSION: Facet arthropathy with edema in the facet articular processes bilaterally at C3-4 Multilevel central and foraminal stenosis as above TECHNICAL DOCUMENTATION: JOB ID: [id number] [employer]- All Rights Reserved Reading location - IP/workstation name: [email or web address]
== END ==
LOC: RAD 19:16
PROVIDERS: ATTEND Family Medicine
DX: M54.12 Radiculopathy, cervical region (principal)
CPT/HCPCS: 72141

== ENCOUNTER 2019-09-08 12:42 | Emergency (ER) | payer MEDICARE ==
[2019-09-08 12:47] VITALS: BP 165/87
--- NOTE | 2019-09-08 13:16 | ER Document Report ---
ED Medical Screen (RME) - General Chief Complaint: Suicidal Ideation Stated Complaint: SUICIDAL IDEATION Time Seen by Provider: 09/08/19 12:57 Primary Care Provider: STEVEN VILLALOBOS MD [Primary Care Provider] - Follow up as needed TRAVEL OUTSIDE OF THE [place] IN LAST 30 DAYS: No - HPI Notes: 09/08/19 13:14 58-year-old male presents as a level crisis for suicidal ideation states he "does not want to live anymore". Patient has tried to hang himself in the past states he was trying to respond and was staying himself. 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 He has severe PTSD and depression. Anniversaries, delirium September 20. Patient does have a medical history of hematuria for the last year, with cervical neuralgia, did have an MRI the last time he was in the emergency room. Patient was doing well with the medications that he was on for his mental health needs, he did run out of his medication, was not aware that his appointment at [facility] was in the last week of July, so therefore he does not have his medications. I have greeted and performed a rapid initial assessment of this patient. A comprehensive ED assessment and evaluation of the patient, analysis of test results and completion of the medical decision making process will be conducted by additional ED providers. PHYSICAL EXAMINATION: GENERAL: chronically ill, well-nourished and in no acute distress. HEAD: Atraumatic, normocephalic. EYES: Pupils equal round extraocular movements intact, conjunctiva are normal. ENT: Nares patent NECK: Normal range of motion LUNGS: No respiratory distress Musculoskeletal: Normal range of motion NEUROLOGICAL: Normal speech, normal gait. PSYCH: depressed, flat affect SKIN: Warm, Dry, normal turgor, no rashes or lesions noted. - Related Data Allergies/Adverse Reactions: erythromycin base Allergy (Verified 09/08/19 12:56) hydromorphone [From Dilaudid] Adverse Reaction (Verified 09/08/19 12:56) palpations ketorolac [From Toradol] Adverse Reaction (Verified 09/08/19 12:56) Past Medical History - Social History Chew tobacco use (# tins/day): No Frequency of alcohol use: None Drug Abuse: None - Past Medical History Cardiac Medical History: Reports: Hx DVT, Hx Hypercholesterolemia, Hx Hypertension Neurological Medical History: Reports: Hx Cerebrovascular Accident - TIA Endocrine Medical History: Denies: Hx Diabetes Mellitus Type 2 Renal/ Medical History: Reports: Hx Kidney Stones. Denies: Hx Peritoneal Dialysis GI Medical History: Reports: Hx Cirrhosis, Hx Hepatitis - History of hepatitis C. He has had treatment. Musculoskeltal Medical History: Reports Hx Arthritis Psychiatric Medical History: Reports: Hx Post Traumatic Stress Disorder Infectious Medical History: Reports: Hx Hepatitis - History of hepatitis C. He has had treatment. Past Surgical History: Reports: Hx Abdominal Surgery - hernia, Hx Appendectomy, Hx Cholecystectomy, Hx Kidney (Renal Surgery) - kidney stones, bilateral ureteral stents on 02/08/2019, Hx Orthopedic Surgery - Has had cervical spine surgery, r Knee Replacement, Hx Vascular Surgery - removal of DVTs in legs, IVC filter placed - Immunizations Immunizations up to date: Yes Hx Diphtheria, Pertussis, Tetanus Vaccination: Yes Physical Exam - Vital signs Vitals: Temp Pulse Resp BP Pulse Ox 98.2 F 71 16 165/87 H 99 09/08/19 12:46 09/08/19 12:46 09/08/19 12:46 09/08/19 12:46 09/08/19 12:46 Course - Vital Signs Vital signs: Temp Pulse Resp BP Pulse Ox 98.2 F 71 16 165/87 H 99 09/08/19 12:59 09/08/19 12:46 09/08/19 12:59 09/08/19 12:46 09/08/19 12:59 Doctor's Discharge - Discharge Referrals: STEVEN VILLALOBOS MD [Primary Care Provider] - Follow up as needed
[2019-09-08 14:19] LABS: ABSOLUTE EOSINOPHILS # (AUTO) 0.1 10^3/uL (0.0-0.6); ABSOLUTE LYMPHOCYTES (AUTO) 1.1 10^3/uL (0.5-4.7); ABSOLUTE MONOCYTES (AUTO) 0.5 10^3/uL (0.1-1.4); ABSOLUTE NEUT (AUTO) 2.9 10^3/uL (1.7-8.2); BASOPHILS % (AUTO) 0.3 % (0-2); EOSINOPHILS % (AUTO) 1.6 % (0-6); HEMATOCRIT 33.2 % (37.9-51.0); HEMOGLOBIN 11.3 g/dL (13.5-17.0); LYMPHOCYTES % (AUTO) 24.7 % (13-45); MEAN CORPUSCULAR HEMOGLOBIN 31.7 pg (27.0-33.4); MEAN CORPUSCULAR VOLUME 93 fl (80-97); MONOCYTES % (AUTO) 9.9 % (3-13); RED BLOOD COUNT 3.56 10^6/uL (4.35-5.55); RED CELL DISTRIBUTION WIDTH 15.7 % (11.5-14.0); SEGMENTED NEUTROPHILS % (AUTO) 63.5 % (42-78); TOTAL CELLS COUNTED % (AUTO) 100 %; WHITE BLOOD COUNT 4.6 10^3/uL (4.0-10.5)
--- NOTE | 2019-09-08 14:21 | ER Document Report ---
Entered by MARIA A LOPES SCRIBE 09/08/19 1405 Acting as scribe for:OSVALDO SYED MD ED Psych Disorder / Suicide <BEVERLY GONZALEZ - Last Filed: 09/08/19 15:56> - General Mode of Arrival: Ambulatory Information source: Patient, [facility] Records TRAVEL OUTSIDE OF THE [place] IN LAST 30 DAYS: No <OSVALDO SYED - Last Filed: 09/08/19 16:05> - General Chief Complaint: Suicidal Ideation Stated Complaint: SUICIDAL IDEATION Time Seen by Provider: 09/08/19 12:57 Primary Care Provider: [facility] [Outside] - Follow up as needed STEVEN VILLALOBOS MD [Primary Care Provider] - Follow up as needed Notes: This 58 year old male patient presents to the ED today with suicidal ideation. Patient was seen at this facility about a month ago for attempting to hang himself. Patient was sent from here to an inpatient facility ([facility]) where he stayed for about a week. Patient had medication adjustments there and says he felt quite good on those psychiatric medications. Patient did not know he was supposed to follow up at [facility] and so now he has run out of medication. (OSVALDO SYED) - Related Data Allergies/Adverse Reactions: erythromycin base Allergy (Verified 09/08/19 12:56) hydromorphone [From Dilaudid] Adverse Reaction (Verified 09/08/19 12:56) palpations ketorolac [From Toradol] Adverse Reaction (Verified 09/08/19 12:56) Past Medical History - General Information source: Patient - Social History Smoking Status: Current Every Day Smoker Cigarette use (# per day): Yes Chew tobacco use (# tins/day): No Frequency of alcohol use: None Drug Abuse: None Family History: Reviewed & Not Pertinent Patient has suicidal ideation: Yes Patient has homicidal ideation: No - Past Medical History Cardiac Medical History: Reports: Hx DVT, Hx Hypercholesterolemia, Hx Hypertension Neurological Medical History: Reports: Hx Cerebrovascular Accident - TIA Endocrine Medical History: Denies: Hx Diabetes Mellitus Type 2 Renal/ Medical History: Reports: Hx Kidney Stones GI Medical History: Reports: Hx Cirrhosis, Hx Hepatitis - History of hepatitis C. He has had treatment. Musculoskeletal Medical History: Reports Hx Arthritis Psychiatric Medical History: Reports: Hx Post Traumatic Stress Disorder Infectious Medical History: Reports: Hx Hepatitis - History of hepatitis C. He has had treatment. Past Surgical History: Reports: Hx Appendectomy, Hx Cholecystectomy, Hx Herniorrhaphy, Hx Kidney (Renal Surgery) - kidney stones, bilateral ureteral stents on 02/08/2019, Hx Orthopedic Surgery - Has had cervical spine surgery, right Knee Replacement, Hx Vascular Surgery - removal of DVTs in legs, IVC filter placed - Immunizations Immunizations up to date: Yes Hx Diphtheria, Pertussis, Tetanus Vaccination: Yes <OSVALDO SYED - Last Filed: 09/08/19 16:05> Review of Systems - Review of Systems Constitutional: No symptoms reported EENT: No symptoms reported Cardiovascular: No symptoms reported Respiratory: No symptoms reported Gastrointestinal: No symptoms reported Genitourinary: No symptoms reported Male Genitourinary: No symptoms reported Musculoskeletal: No symptoms reported Skin: No symptoms reported Hematologic/Lymphatic: No symptoms reported Neurological/Psychological: See HPI, Suicidal ideation <OSVALDO SYED - Last Filed: 09/08/19 16:05> Physical Exam - Vital signs Interpretation: Hypertensive - General General appearance: Appears well, Alert - HEENT Head: Normocephalic, Atraumatic Eyes: Normal Pupils: PERRL - Respiratory Respiratory status: No respiratory distress Chest status: Nontender Breath sounds: Normal Chest palpation: Normal - Cardiovascular Rhythm: Regular Heart sounds: Normal auscultation Murmur: No - Abdominal Inspection: Normal Distension: No distension Bowel sounds: Normal Tenderness: Nontender Organomegaly: No organomegaly - Back Back: Normal, Nontender - Extremities General upper extremity: Normal inspection General lower extremity: Normal inspection - Neurological Neuro grossly intact: Yes Sensory: Normal - Psychological Associated symptoms: Normal affect, Normal mood - Skin Skin Temperature: Warm Skin Moisture: Dry Skin Color: Normal <OSVALDO SYED - Last Filed: 09/08/19 16:05> - Vital signs Vitals: Temp Pulse Resp BP Pulse Ox 98.2 F 71 16 165/87 H 99 09/08/19 12:46 09/08/19 12:46 09/08/19 12:46 09/08/19 12:46 09/08/19 12:46 Course - Laboratory Result Diagrams: 09/08/19 14:00 09/08/19 14:00 <BEVERLY GONZALEZ - Last Filed: 09/08/19 15:56> - Laboratory Result Diagrams: 09/08/19 14:00 09/08/19 14:00 - EKG Interpretation by Me EKG shows normal: Sinus rhythm, [place], Intervals, QRS Complexes, ST-T Waves Rate: Normal - 57 Rhythm: NSR <KUNALPHI SenaOSVALDO - Last Filed: 09/08/19 16:05> - Vital Signs Vital signs: Temp Pulse Resp BP Pulse Ox 98.2 F 71 16 165/87 H 99 09/08/19 12:59 09/08/19 12:46 09/08/19 12:59 09/08/19 12:46 09/08/19 12:59 - Laboratory Laboratory results interpreted by me: 09/08/19 09/08/19 09/08/19 14:00 14:00 14:00 RBC 3.56 L Hgb 11.3 L Hct 33.2 L RDW 15.7 H Plt Count 57 L Chloride 109 H Glucose 131 H Albumin 3.1 L Urine Protein 100 H Urine Blood LARGE H Urine Urobilinogen 2.0 H Ur Leukocyte Esterase MODERATE H Salicylates 1.1 L Acetaminophen < 10 L Discharge <BEVERLY GONZALEZ - Last Filed: 09/08/19 15:56> <OSVALDO SYED - Last Filed: 09/08/19 16:05> - Discharge Clinical Impression: Has run out of medications Depression Qualifiers: Depression Type: unspecified Qualified Code(s): F32.9 - Major depressive disorder, single episode, unspecified Condition: Stable Disposition: HOME, SELF-CARE Additional Instructions: You have been evaluated by both medical and behavioral health teams and have been deemed appropriate for discharge. Please follow up with your provider, [facility], at your scheduled appointment on 09/12/2019 at 12:30. Mobile crisis will be following up with you today. The contact information for mobile crisis has been provided, as needed. Post-Traumatic Stress Disorder You seem to have post-traumatic stress disorder (PTSD). PTSD can cause chronic anxiety, sleeping problems, social withdrawal, and drug abuse. It can occur following a traumatic personal experience such as an accident, rape, assault, or of a loved one, or after experiencing a war or natural disaster. Symptoms may be delayed for days or even years. Emotional numbing, the inability to express grief, is usually the earliest sign. There may be apathy or agitation, aggression, and inability to perform ordinary tasks. Often there are frightening nightmares and sudden, intruding memories of the trauma. Panic attacks and feelings of guilt are common. Alcohol and drug use make post- traumatic stress symptoms worse. Medication may be temporarily necessary to combat anxiety, panic attacks, and depression. Medicine should not be considered a "cure." You must deal with the trauma and prepare to go on. Group therapy is often helpful. This helps you "talk through" the problem with others who share your symptoms. We can provide you with an appropriate referral. DEPRESSION: Your evaluation reveals that you have mental depression. While symptoms may be vague, they often include disturbance of sleep, fatigue, loss of appetite, and general loss of interest in life. While depression may be a side effect of drugs, or a reaction to a major change in your life, many cases have no known cause. If depression is acute, and related to a major loss in your life, you can expect it to clear completely with time. If you have been depressed a long time, are prone to repeated bouts of depression or low mood, or have been thinking of suicide, get help. Depression can be treated with anti-depressant medication and counselling. Long-term depression will often take a few weeks to clear, even with appropriate medication. Follow-up care is important. SUICIDAL IDEATION: Suicidal ideation is a common medical term for thoughts about suicide, which may be as detailed as a formulated plan, without the suicidal act itself. Although most people who undergo suicidal ideation do not commit suicide, some go on to make suicide attempts. The range of suicidal ideation varies greatly from fleeting to detailed planning, role playing, and unsuccessful attempts. While thoughts about suicide are common, most people do not carry out serious actions to commit suicide. Based upon your evaluation and discussion with you, we do not believe you are currently at risk to act upon your thoughts of suicide. You have agreed to return to the Emergency Department, at any time, if you feel inclined to act upon your suicidal thoughts. AT ANY TIME, IF YOUR SYMPTOMS CHANGE SIGNIFICANTLY OR WORSEN OR YOU DEVELOP NEW SYMPTOMS, RETURN TO THE EMERGENCY DEPARTMENT IMMEDIATELY FOR RE-EVALUATION. You were given today's dose of the Cymbalta here in the emergency room. The hospital does not carry the Minipress that you take. You were given prescriptions for these 2 medications which will carry you through to your appointment at [facility] on 09/12/2019. You will need to see your primary care provider for any additional pain medications. Prescriptions: Duloxetine HCl 60 mg PO DAILY #4 capsule. Prazosin HCl [Minipress] 2 mg PO DAILY #5 capsule Referrals: [facility] [Outside] - Follow up as needed STEVEN VILLALOBOS MD [Primary Care Provider] - Follow up as needed [facility] [place] [facility] [Outside] - 09/12/19 Scribe Attestation: 09/08/19 14:24 I personally performed the services described in the documentation, reviewed and edited the documentation which was dictated to the scribe in my presence, and it accurately records my words and actions. (OSVALDO SYED) I personally performed the services described in the documentation, reviewed and edited the documentation which was dictated to the scribe in my presence, and it accurately records my words and actions.
[2019-09-08 14:31] LABS: ALBUMIN 3.1 g/dL (3.5-5.0); ALKALINE PHOSPHATASE 83 U/L (38-126); ANION GAP 8 (5-19); ASPARTATE AMINO TRANSFERASE 46 U/L (17-59); BILIRUBIN,DIRECT 0.1 mg/dL (0.0-0.4); BILIRUBIN,TOTAL 1.3 mg/dL (0.2-1.3); BLOOD UREA NITROGEN 12 mg/dL (7-20); CALCIUM 8.8 mg/dL (8.4-10.2); CARBON DIOXIDE 26 mmol/L (22-30); CHLORIDE 109 mmol/L (98-107); GLUCOSE 131 mg/dL (75-110); POTASSIUM 3.9 mmol/L (3.6-5.0); SALICYLATE 1.1 mg/dL (2.0-20.0); TOTAL PROTEIN 6.9 g/dL (6.3-8.2)
[2019-09-08 14:34] LABS: ACETAMINOPHEN < 10 ug/mL (10-30); ALCOHOL < 10 mg/dL (NONE DETECTED)
[2019-09-08 14:36] LABS: APPEARANCE,URINE CLEAR; BILIRUBIN,URINE NEGATIVE (NEGATIVE); GLUCOSE, URINE NEGATIVE (NEGATIVE); KETONES,URINE NEGATIVE (NEGATIVE); LEUKOCYTE ESTERASE,URINE MODERATE (NEGATIVE); NITRITE,URINE NEGATIVE (NEGATIVE); PROTEIN,URINE 100 mg/dL (NEGATIVE); URIC ACID CRYSTALS,URINE TOO NUMEROUS TO CNT /HPF; URINE SPECIFIC GRAVITY 1.017
[2019-09-08 14:37] LABS: COLOR,URINE RED
[2019-09-08 14:42] LABS: PLATELET COUNT 57 10^3/uL (150-450)
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
[2019-09-08 14:57] LABS: URINE AMPHETAMINES SCREEN NEGATIVE; URINE BARBITURATES SCREEN NEGATIVE; URINE BENZODIAZEPINES SCREEN NEGATIVE; URINE COCAINE SCREEN NEGATIVE; URINE MARIJUANA (THC) SCREEN NEGATIVE; URINE METHADONE SCREEN NEGATIVE; URINE PHENCYCLIDINE SCREEN NEGATIVE
[2019-09-08] MEDS ORDERED: DULOXETINE HCL 30 MG CAPSULE.DR PO ONE (15:17)
[2019-09-08] MEDS ORDERED: GABAPENTIN 300 MG CAPSULE PO ONE (15:20)
--- NOTE | 2019-09-08 17:01 | EKG REPORT ---
SEVERITY:- NORMAL ECG - SINUS RHYTHM : Confirmed by: Marcus Kendall MD 08-Sep-2019 17:01:27
== END 2019-09-08 16:57 | disposition home or self-care (01) ==
LOC: ER 12:42
DX: F32.9 Major depressive disorder, single episode, unspecified (principal); R45.851 Suicidal ideations; F17.210 Nicotine dependence, cigarettes, uncomplicated; I10 Essential (primary) hypertension; E11.9 Type 2 diabetes mellitus without complications; Z88.1 Allergy status to other antibiotic agents
CPT/HCPCS: 93005; 99285; 36415; 80307 ×4; 85025; 80053; 81001; 93010; A9270

== ENCOUNTER 2019-09-27 00:13 | Emergency (ER) | payer MEDICARE ==
[2019-09-27 01:13] LABS: ABSOLUTE EOSINOPHILS # (AUTO) 0.1 10^3/uL (0.0-0.6); ABSOLUTE MONOCYTES (AUTO) 0.6 10^3/uL (0.1-1.4); ABSOLUTE NEUT (AUTO) 2.9 10^3/uL (1.7-8.2); BASOPHILS % (AUTO) 0.2 % (0-2); EOSINOPHILS % (AUTO) 1.7 % (0-6); HEMATOCRIT 28.9 % (37.9-51.0); LYMPHOCYTES % (AUTO) 22.5 % (13-45); MEAN CORPUSCULAR HEMOGLOBIN 31.7 pg (27.0-33.4); MEAN CORPUSCULAR HGB CONC 34.7 g/dL (32.0-36.0); MEAN CORPUSCULAR VOLUME 91 fl (80-97); MONOCYTES % (AUTO) 12.1 % (3-13); RED BLOOD COUNT 3.16 10^6/uL (4.35-5.55); RED CELL DISTRIBUTION WIDTH 15.4 % (11.5-14.0); SEGMENTED NEUTROPHILS % (AUTO) 63.5 % (42-78); TOTAL CELLS COUNTED % (AUTO) 100 %; WHITE BLOOD COUNT 4.6 10^3/uL (4.0-10.5)
[2019-09-27 01:21] LABS: APPEARANCE,URINE SLIGHTLY-CLOUDY; BILIRUBIN,URINE NEGATIVE (NEGATIVE); COLOR,URINE RED; GLUCOSE, URINE NEGATIVE (NEGATIVE); KETONES,URINE NEGATIVE (NEGATIVE); LEUKOCYTE ESTERASE,URINE LARGE (NEGATIVE); NITRITE,URINE NEGATIVE (NEGATIVE); PROTEIN,URINE 100 mg/dL (NEGATIVE); URINE SPECIFIC GRAVITY 1.012
[2019-09-27 01:30] LABS: PLATELET COUNT 51 10^3/uL (150-450)
[2019-09-27 01:31] LABS: ALBUMIN 2.8 g/dL (3.5-5.0); ALKALINE PHOSPHATASE 70 U/L (38-126); ANION GAP 6 (5-19); ASPARTATE AMINO TRANSFERASE 45 U/L (17-59); BILIRUBIN,DIRECT 0.2 mg/dL (0.0-0.4); BILIRUBIN,TOTAL 1.2 mg/dL (0.2-1.3); BLOOD UREA NITROGEN 15 mg/dL (7-20); CALCIUM 8.8 mg/dL (8.4-10.2); CARBON DIOXIDE 24 mmol/L (22-30); CHLORIDE 115 mmol/L (98-107); GLUCOSE 115 mg/dL (75-110); POTASSIUM 3.7 mmol/L (3.6-5.0); SALICYLATE 1.1 mg/dL (2.0-20.0); TOTAL PROTEIN 6.2 g/dL (6.3-8.2)
[2019-09-27 01:32] LABS: ACETAMINOPHEN < 10 ug/mL (10-30); ALCOHOL < 10 mg/dL (NONE DETECTED)
[2019-09-27 01:33] LABS: URINE AMPHETAMINES SCREEN NEGATIVE; URINE BENZODIAZEPINES SCREEN NEGATIVE; URINE COCAINE SCREEN NEGATIVE; URINE MARIJUANA (THC) SCREEN NEGATIVE; URINE METHADONE SCREEN NEGATIVE; URINE PHENCYCLIDINE SCREEN NEGATIVE
[2019-09-27 01:34] LABS: URINE BARBITURATES SCREEN UNCONFIRMED POSITIVE
--- NOTE | 2019-09-27 03:11 | ER Document Report ---
ED General - General Chief Complaint: Suicidal Ideation Stated Complaint: SUICIDE ATTEMPT Time Seen by Provider: 09/27/19 00:30 Primary Care Provider: STEVEN VILLALOBOS MD [Primary Care Provider] - Follow up as needed Notes: 58-year-old male brought in by EMS after attempted hanging at home. This is the patient's third suicide attempt, his last suicide attempt was also by hanging. Patient states that he was sent to [facility] and then discharged on medications after his last attempt, felt much better until he ran out of his medications after 2 weeks and then felt worse again. Patient states that he is completely overwhelmed by his chronic medical conditions and his pain and that he would just like to go to sleep and never wake up again. Patient states that he intentionally tried to kill himself today because he is in so much pain from pinched nerves in his neck as well as pain from kidney stones that he has been unable to get treated as an outpatient. Patient complains of unchanged pain in his neck compared to prior to the hanging attempt, complains of unchanged tingling in his left arm compared to prior to his hanging attempt and complains of unchanged blood in his urine compared to prior to the hanging attempt. TRAVEL OUTSIDE OF THE [place] IN LAST 30 DAYS: No - Related Data Allergies/Adverse Reactions: erythromycin base Allergy (Verified 09/08/19 12:56) hydromorphone [From Dilaudid] Adverse Reaction (Verified 09/08/19 12:56) palpations ketorolac [From Toradol] Adverse Reaction (Verified 09/08/19 12:56) Past Medical History - General Information source: Patient - Social History Smoking Status: Current Every Day Smoker Frequency of alcohol use: Occasional Drug Abuse: None Family History: Reviewed & Not Pertinent Patient has suicidal ideation: Yes Patient has homicidal ideation: No - Past Medical History Cardiac Medical History: Reports: Hx DVT, Hx Hypercholesterolemia, Hx Hypertension Neurological Medical History: Reports: Hx Cerebrovascular Accident - TIA Endocrine Medical History: Denies: Hx Diabetes Mellitus Type 2 Renal/ Medical History: Reports: Hx Kidney Stones. Denies: Hx Peritoneal Dialysis GI Medical History: Reports: Hx Cirrhosis, Hx Hepatitis - History of hepatitis C. He has had treatment. Musculoskeletal Medical History: Reports Hx Arthritis Psychiatric Medical History: Reports: Hx Post Traumatic Stress Disorder Infectious Medical History: Reports: Hx Hepatitis - History of hepatitis C. He has had treatment. Past Surgical History: Reports: Hx Abdominal Surgery - hernia, Hx Appendectomy, Hx Cholecystectomy, Hx Herniorrhaphy, Hx Kidney (Renal Surgery) - kidney stones, bilateral ureteral stents on 02/08/2019, Hx Orthopedic Surgery - Has had cervical spine surgery, right Knee Replacement, Hx Vascular Surgery - removal of DVTs in legs, IVC filter placed - Immunizations Immunizations up to date: Yes Hx Diphtheria, Pertussis, Tetanus Vaccination: Yes Review of Systems - Review of Systems Constitutional: No symptoms reported Musculoskeletal: See HPI Neurological/Psychological: See HPI -: Yes All other systems reviewed and negative Physical Exam - Vital signs Vitals: Temp Pulse Resp BP Pulse Ox 98.2 F 72 16 143/73 H 99 09/27/19 01:02 09/27/19 01:02 09/27/19 01:02 09/27/19 01:02 09/27/19 01:02 Interpretation: Normal - Notes Notes: GENERAL: Alert, interacts well. Initially immobilized in a cervical collar which he removed himself and demonstrated full range of motion. HEAD: Normocephalic, atraumatic no petechial hemorrhages. EYES: Pupils equal, round and reactive to light, extraocular movements intact. No subconjunctival hemorrhages. ENT: Oral mucosa moist, tongue midline. NECK: Full range of motion, supple, trachea midline. No carotid bruits. There is a ligature vidya noted around his neck, approximately 4 mm, no bruising is noted around that area, there is an indentation but no abrasions. There is no midline bony tenderness to palpation. There is some tenderness across his trachea but there is no crepitus, deformity or bruising. There is no subcu emphysema. No stridor. LUNGS: Clear to auscultation bilaterally, no wheezes, rales or rhonchi, no respiratory distress. HEART: Regular rate and rhythm, no murmurs, gallops, rubs. ABDOMEN: Soft, nontender, nondistended, bowel sounds present in all 4 quadrants. EXTREMITIES: Moves all 4 extremities spontaneously, no edema, radial and dorsalis pedis pulses 2/4 bilaterally. No cyanosis. NEUROLOGICAL: Alert and oriented x3, normal speech, cranial nerves II through XII grossly intact, biceps and patellar DTRs 2+ bilaterally. PSYCH: Depressed, intermittently tearful, able to be comforted. SKIN: Warm, Dry, normal turgor. Course - Re-evaluation Re-evalutation: 09/27/19 03:11 CBC shows anemia with a hemoglobin of 10 and platelets of 51, both relatively unchanged from last laboratory studies, CMP grossly unremarkable, urinalysis continues to show large blood and large leukocyte esterase but only 15 WBCs. This will be sent for culture, suspect this is still coming from the stone, urine drug screen shows barbiturates, salicylates are detectable at 1.1, acetaminophen is undetectable, alcohol level is undetectable. 09/27/19 03:16 Head CTA 09/27/19 00:41 IMPRESSION: 1. 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 No major branch occlusion or flow limiting stenosis is identified intracranially. 2. No cervical carotid or vertebral stenosis or evidence of vascular injury. 3. Ground glass opacities along the left upper lobe, which may be due to pneumonia TECHNICAL DOCUMENTATION: Quality ID # 436: Final reports with documentation of one or more dose reduction techniques (e.g., Automated exposure control, adjustment of the mA and/or kV according to patient size, use of iterative reconstruction technique) copyright 2010 [employer]- All Rights Reserved Neck CTA 09/27/19 00:41 IMPRESSION: 1. 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 No major branch occlusion or flow limiting stenosis is identified intracranially. 2. No cervical carotid or vertebral stenosis or evidence of vascular injury. 3. Ground glass opacities along the left upper lobe, which may be due to pneumonia TECHNICAL DOCUMENTATION: Quality ID # 436: Final reports with documentation of one or more dose reduction techniques (e.g., Automated exposure control, adjustment of the mA and/or kV according to patient size, use of iterative reconstruction technique) copyright 2010 [employer]- All Rights Reserved Chest x-ray will be alerted to follow-up on the groundglass opacities in the left upper lobe. Patient is medically cleared to be moved off of a monitor. Cervical collar is removed. - Vital Signs Vital signs: Temp Pulse Resp BP Pulse Ox 98.2 F 72 16 143/73 H 99 09/27/19 01:02 09/27/19 01:02 09/27/19 01:02 09/27/19 01:02 09/27/19 01:02 - Laboratory Result Diagrams: 09/27/19 00:54 09/27/19 00:54 Laboratory results interpreted by me: 09/27/19 09/27/19 09/27/19 00:30 00:54 00:54 RBC 3.16 L Hgb 10.0 L Hct 28.9 L RDW 15.4 H Plt Count 51 L Chloride 115 H Glucose 115 H Total Protein 6.2 L Albumin 2.8 L Urine Protein 100 H Urine Blood LARGE H Urine Urobilinogen 4.0 H Ur Leukocyte Esterase LARGE H Salicylates 1.1 L Acetaminophen < 10 L Discharge - Discharge Clinical Impression: Suicide attempt by hanging Qualifiers: Encounter type: initial encounter Qualified Code(s): T71.162A - Asphyxiation due to hanging, intentional self-harm, initial encounter Depression Qualifiers: Depression Type: unspecified Qualified Code(s): F32.9 - Major depressive disorder, single episode, unspecified Condition: Stable Disposition: PSYCH HOSP/UNIT Referrals: STEVEN VILLALOBOS MD [Primary Care Provider] - Follow up as needed
--- NOTE | 2019-09-27 03:12 | RADIOLOGY REPORT (SQ) ---
EXAM DESCRIPTION: CT HEAD ANGIOGRAPHY WITHOUT THEN WITH IV CONTRAST, CT NECK ANGIOGRAPHY WITHOUT THEN WITH IV CONTRAST COMPLETED DATE/TME: 09/27/2019 00:41 CLINICAL HISTORY: 58 years, Male, hanging, attempted suicide. CREAT 0.76 COMPARISON: None. TECHNIQUE: Axial CT images of the head and neck were obtained after demonstration of IV contrast. MPR and MIP reconstructions were performed. DLP 1401 Images stored on PACS. All CT scanners at this facility use dose modulation, iterative reconstruction, and/or weight based dosing when appropriate to reduce radiation dose to as low as reasonably achievable (ALARA). [facility]: Dose Right [facility]: CareDose [facility]: Dose Right [facility]: Teradose 4D [facility]: [employer] LIMITATIONS: None. FINDINGS: CTA NECK: Aortic arch: Standard anatomy. No atherosclerosis. No great vessel origin stenosis. Left carotid system: The common carotid artery, carotid bifurcation , and internal carotid artery have normal course, caliber, and contour without significant stenosis by NASCET criteria. No evidence of vascular injury. Right carotid system: The common carotid artery, carotid bifurcation , and internal carotid artery have normal course, caliber, and contour without significant stenosis by NASCET criteria. No evidence of vascular injury. Vertebral arteries: Right dominant system. Normal course, caliber, and contour without atherosclerosis or stenosis. No evidence of vascular injury>] Nonvascular tissues: No mucosal contour abnormality, abnormal enhancement, or asymmetry. Normal salivary and thyroid glands. No lymphadenopathy. There are groundglass opacities along the left upper lobe. CTA BRAIN: Distal Internal carotid arteries: Normal course, caliber, and contour without atherosclerosis or stenosis [place]: Standard configuration without proximal stenosis . Anterior cerebral arteries: There is hypoplasia of the right A1 segment. There is a fusiform anterior communicating artery aneurysm measuring up to 4 mm in diameter. No focal stenosis. Middle cerebral arteries: No focal stenosis or aneurysm Posterior cerebral arteries: No focal stenosis or aneurysm. Vertebrobasilar circulation: The intradural vertebral arteries, basilar artery, and all cerebellar branches are patent without focal stenosis or aneurysm. Veins: The major dural venous sinus, cortical and deep cerebral veins are patent. Paranasal sinuses: Clear IMPRESSION: 1. 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 No major branch occlusion or flow limiting stenosis is identified intracranially. 2. No cervical carotid or vertebral stenosis or evidence of vascular injury. 3. Ground glass opacities along the left upper lobe, which may be due to pneumonia TECHNICAL DOCUMENTATION: Quality ID # 436: Final reports with documentation of one or more dose reduction techniques (e.g., Automated exposure control, adjustment of the mA and/or kV according to patient size, use of iterative reconstruction technique) copyright 2011 [employer]- All Rights Reserved
[2019-09-27] MEDS ORDERED: OXYCODONE HCL IR 5 MG TABLET PO ONE (03:23)
--- NOTE | 2019-09-27 04:42 | RADIOLOGY REPORT (SQ) ---
EXAM DESCRIPTION: XR CHEST 1 VIEW COMPLETED DATE/TME: 09/27/2019 03:15 CLINICAL HISTORY: 58 years, Male, Groundglass opacities upper lobe seen on CT scan COMPARISON: CTA neck done the same date NUMBER OF VIEWS: One TECHNIQUE: AP view of the chest LIMITATIONS: None. FINDINGS: There is pulmonary vascular congestion. There is no focal consolidation. The heart is normal in size. There is no pneumothorax or pleural effusion. The bones are unremarkable. IMPRESSION: The groundglass opacities along the left upper lobe are better appreciated on the prior CT scan. Pulmonary vascular congestion. copyright 2010 [employer]- All Rights Reserved
--- NOTE | 2019-09-27 07:33 | EKG REPORT ---
SEVERITY:- NORMAL ECG - SINUS RHYTHM : Confirmed by: Marcus Kendall MD 27-Sep-2019 07:33:14
--- NOTE | 2019-09-27 08:20 | PSYCHOLOGICAL NOTE ---
Psych Note - Psych Note Date seen by psych provider: 09/27/19 Time seen by psych provider: 07:30 Psych Note: Reason for consult: Suicidal Gesture Patient is a 58 year old male who presents to ED via EMS after suicidal gesture. Patient was found hanging in a closet by . Patient is known to ED and behavioral health team. Patient was placed at [facility] on 08/08/2019. Patient was last seen in ED on 09/08/2019 for SI. Per patients , we were in bed, and then he got up and went into the office to listen to music and the next thing I know he texted me goodbye. Patient was found in the closet with rope tied around his neck. states patient is easily angered; fine one minute and then the next hell go ballistic. states he thinks everyone should bend down and kiss his ass. states she received a phone call from her Doctor stating her heart was not working correctly, and patient became upset and accused her of making it up for attention. is angry and upset that you people sent him home 2 weeks ago k nowing he was suicidal. states he is not compliant with treatment and medications. states "don't you dare send him home, I can't take this." Clinician asked to come to the ED to be part of his plan of care, refused. Clinician attempted to discuss treatment as a joint process that patient has to be engaged in. Clinician attempted to discuss patients prior treatment at this ED and the placement this ED facilitated; would not listen. hung up on clinician. Patients presenting concerns continue to be focused on pain as a result of medical issues. Patient expressed anger regarding physicians who refuse to help me. Patient spoke specifically about recent MRI by ED that shows he crushed his neck, pain management, and urology. Patient states he cannot be seen by the above physicians because he owes $95. 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 Patient spoke of increased conflict with his . Patient described his as lazy and dont get up off the couch for nothing. Discussed the text he sent his during his suicidal gesture. Patient denies he wanted to be found. Patient states he wanted his to leave me alone. Clinician inquired about the text again and his past suicide attempts and gauged if he was attempting to get his 's attention or elicit concern. Patient denied. Patient states his pain is physical and mental. Clinician stated patient focuses on pain. Patient states he is tired of everything and will at his own hand one day. Patient requested discharge. Clinician informed patient that placement would be sought. Patient requested to go back to [facility] because they assisted with his medical concerns. Clinician informed patient that could not be guaranteed. Patient became irritable and stated he would clam up if not sent to [facility]. Clinician replied that is your decision when you arrive at whatever placement is available. Patient requested additional pain medication. Patient is alert and oriented to person, place, time and circumstance. Mood is irritable with congruent affect. Patient engaged in suicidal gesture. Patient denies homicidal ideation. Delusions are absent and behavior is congruent with an intact reality based presentation (i.e.: organized and linear through processes). There is no observed behavior that suggests patient is responding to internal stimuli. Patient denies current auditory and visual hallucinations. Eye contact is appropriate. Conversational speech is within normal rate, tone, and prosody. Intellectual ability appears to be within average range. Attention and concentration are good. Insight, judgment and impulse control are currently poor. Medication recommendations per [facility] contracted psychiatrist Dr. Lupe REES is as follows: Impression/Plan: Patient is recommended for continued IVC. Plan obtain appropriate placement. 24hr petition and 1st eval was faxed to [facility] at 08:30. Dr. Jim was consulted on the care and management of this patient; attending physician is in agreement with recommendations and disposition.
[2019-09-27] MEDS ORDERED: OXYCODONE-ACETAMINOPHEN 5-325 MG TABLET PO PRN (12:46)
[2019-09-27] MEDS ORDERED: CIPROFLOXACIN HCL 500 MG TABLET PO ONE (12:48)
[2019-09-27] MEDS ORDERED: ATENOLOL 50 MG TABLET PO ONE (12:59)
[2019-09-27] MEDS: GABAPENTIN 300 MG CAPSULE PO SCH ×2 (14:04→17:42)
[2019-09-27] MEDS: OXYCODONE HCL IR 5 MG TABLET PO PRN (17:40)
[2019-09-27] MEDS: BUSPIRONE HCL 10 MG TABLET PO SCH (17:41)
[2019-09-27] MEDS: CIPROFLOXACIN HCL 500 MG TABLET PO SCH (17:42)
[2019-09-27] MEDS: OLANZAPINE 5 MG TABLET PO SCH (17:42)
[2019-09-27] MEDS: BENZTROPINE MESYLATE 1 MG TABLET PO SCH (17:46)
[2019-09-27] MEDS: FLUOXETINE HCL 20 MG CAPSULE PO SCH (17:46)
--- NOTE | 2019-09-28 02:13 | ER Document Report ---
Doctor's Note Notes: 09/28/19 02:12 0 145 patient fell out of the bed states he landed on his right hip. There is no bruising no abnormalities noted he is was able to get tight back up and walk on this leg. He refused Tylenol Motrin and an x-ray. He states he does not need any of these his leg is okay he just wants to go back to sleep.
--- NOTE | 2019-09-28 08:52 | PSYCHOLOGICAL NOTE ---
Psych Note - Psych Note Date seen by psych provider: 09/28/19 Time seen by psych provider: 08:20 Psych Note: Reason for Consult: Suicide gesture Check in conducted with patient: Patient reports he is "tired of hurting all the time." He stated that he was laying next to his and "the visions" where to much, so he got up went into the closet and attempted to hang himself. Patient's mood and affect is flat. Patient provided verbal consent for his to be part of his plan of care. Clinician spoke with his to provide update on placement. She asked if the patient's wallet could be left at the hospital even if he transports so she can pick it up to pay bills. Clinician explained the patient's belongings must stay with the patient, and that if she needs the wallet she must come to the hospital before he transports, and the patient must consent and sign out his wallet to her. She confirms she understands. Medication recommendations per [facility] contracted psychiatrist Dr. Lupe REES is as follows: Zyprexa 5MG, BID Buspar 5MG, BID Prozac 20MG, daily Cogentin 1MG, daily Impression/Plan: Patient is re commended to continue IVC. Patient has been accepted to [facility]. The behavioral health team is currently coordinating with the [facility] department for transportation. With today being a holiday, [facility] reports they will hold the bed for the patient until 09/29/19. Dr. Jim was consulted on the care and management of this patient; attending physician is in agreement with recommendations and disposition.
[2019-09-28] MEDS: OXYCODONE HCL IR 5 MG TABLET PO PRN (09:27)
[2019-09-28] MEDS: GABAPENTIN 300 MG CAPSULE PO SCH (09:27)
[2019-09-28] MEDS: FLUOXETINE HCL 20 MG CAPSULE PO SCH (09:28)
[2019-09-28] MEDS: BUSPIRONE HCL 10 MG TABLET PO SCH (09:28)
[2019-09-28] MEDS: CIPROFLOXACIN HCL 500 MG TABLET PO SCH (09:28)
[2019-09-28] MEDS: OLANZAPINE 5 MG TABLET PO SCH (09:28)
[2019-09-28] MEDS: BENZTROPINE MESYLATE 1 MG TABLET PO SCH (09:28)
[2019-09-28] MEDS ORDERED: ATENOLOL 50 MG TABLET PO SCH (10:00)
--- NOTE | 2019-09-28 10:06 | ER Document Report ---
Doctor's Note Notes: 09/28/19 10:05 Patient evaluated. Patient without any complaints. Abdomen soft nontender. Regular rate and rhythm. Lungs clear to auscultation bilaterally. Patient will be transferred to [facility] for further treatment per psychiatric team. Patient is able to go to [facility].
--- NOTE | 2019-09-28 10:40 | RADIOLOGY REPORT (SQ) ---
EXAM DESCRIPTION: HIP RIGHT AP/LATERAL COMPLETED DATE/TIME: 09/28/2019 10:31 am REASON FOR STUDY: pain, requested by medical anthropologist at [facility] COMPARISON: None. NUMBER OF VIEWS: Two views. TECHNIQUE: AP pelvis and additional frog-leg view of the right hip. LIMITATIONS: None. FINDINGS: MINERALIZATION: Normal. RIGHT HIP: No fracture or dislocation. No worrisome bone lesions. No contour deformity. No joint sp sarmad narrowing. LEFT HIP: No fracture or dislocation. No worrisome bone lesions. PUBIS AND ISCHIUM: No fracture. PELVIS: No fracture. SACRUM: No fracture or dislocation. No worrisome bone lesions. LOWER LUMBAR SPINE: No fracture or dislocation. No worrisome bone lesions. No significant disc disea se. SOFT TISSUES: No findings. OTHER: No other significant finding. IMPRESSION: NEGATIVE STUDY OF THE RIGHT HIP. NO EXPLANATION FOR PAIN. TECHNICAL DOCUMENTATION: JOB ID: [id number] [employer] in [place]- All Rights Reserved Reading location - IP/workstation name: [email or web address]
[2019-09-28 10:46] VITALS: BP 138/72
== END 2019-09-28 11:44 ==
LOC: ER 00:13
DX: T71.162A Asphyxiation due to hanging, intentional self-harm, initial encounter (principal); F32.9 Major depressive disorder, single episode, unspecified; M54.2 Cervicalgia; M54.9 Dorsalgia, unspecified; G89.29 Other chronic pain; M79.602 Pain in left arm; F17.200 Nicotine dependence, unspecified, uncomplicated; I10 Essential (primary) hypertension; Z79.899 Other long term (current) drug therapy; Y92.009 Unspecified place in unspecified non-institutional (private) residence as the place of occurrence of the external cause
CPT/HCPCS: 93005; 99285; 36415; 87086; 80307 ×4; 85025; 80053; 81001; 71045; 73502; 70496; 70498; 93010; A9270 ×16

== ENCOUNTER 2019-10-12 11:22 | Emergency (ER) | payer MEDICARE ==
[2019-10-12 11:52] VITALS: BP 132/83
[2019-10-12] MEDS ORDERED: NORMAL SALINE 1000 ML 1,000 ML IV ONE (11:53)
--- NOTE | 2019-10-12 11:55 | ER Document Report ---
ED Medical Screen (RME) - General Chief Complaint: Near Syncope Stated Complaint: POSSIBLE SYNCOPE Time Seen by Provider: 10/12/19 11:49 Primary Care Provider: STEVEN VILLALOBOS MD [Primary Care Provider] - Follow up as needed Notes: Patient is a 59-year-old male who presents to the emergency department with a near syncopal episode. He states he went to the bathroom and was sitting on the toilet and when he went to go get up he felt very lightheaded. States that he has never felt like this before. He also states that he feels like he has chills, but denies any fever. Patient has an indwelling Noble catheter that was placed 3 weeks ago for stents and renal stones. Patient also states that he feels like "everything has been leaking." Exam: Soft, nontender abdomen. Noble bag noted to right leg. I have greeted and performed a rapid initial assessment of this patient. A comprehensive ED assessment and evaluation of the patient, analysis of test results and completion of medical decision making process will be conducted by an additional ED providers. TRAVEL OUTSIDE OF THE [place] IN LAST 30 DAYS: No - Related Data Allergies/Adverse Reactions: erythromycin base Allergy (Verified 09/08/19 12:56) hydromorphone [From Dilaudid] Adverse Reaction (Verified 09/08/19 12:56) palpations ketorolac [From Toradol] Adverse Reaction (Verified 09/08/19 12:56) Past Medical History - Past Medical History Cardiac Medical History: Reports: Hx DVT, Hx Hypercholesterolemia, Hx Hypertension Neurological Medical History: Reports: Hx Cerebrovascular Accident - TIA Endocrine Medical History: Denies: Hx Diabetes Mellitus Type 2 Renal/ Medical History: Reports: Hx Kidney Stones. Denies: Hx Peritoneal Dialysis GI Medical History: Reports: Hx Cirrhosis, Hx Hepatitis - History of hepatitis C. He has had treatment. Musculoskeltal Medical History: Reports Hx Arthritis Psychiatric Medical History: Reports: Hx Post Traumatic Stress Disorder Infectious Medical History: Reports: Hx Hepatitis - History of hepatitis C. He has had treatment. Past Surgical History: Reports: Hx Abdominal Surgery - hernia, Hx Appendectomy, Hx Cholecystectomy, Hx Herniorrhaphy, Hx Kidney (Renal Surgery) - kidney stones, bilateral ureteral stents on 02/08/2019, Hx Orthopedic Surgery - Has had cervical spine surgery, right Knee Replacement, Hx Vascular Surgery - removal of DVTs in legs, IVC filter placed - Immunizations Immunizations up to date: Yes Hx Diphtheria, Pertussis, Tetanus Vaccination: Yes Physical Exam - Vital signs Vitals: Temp Pulse Resp BP Pulse Ox 97.9 F 81 18 132/83 H 98 10/12/19 11:50 10/12/19 11:50 10/12/19 11:50 10/12/19 11:50 10/12/19 11:50 Course - Vital Signs Vital signs: Temp Pulse Resp BP Pulse Ox 97.9 F 81 18 132/83 H 98 10/12/19 11:50 10/12/19 11:50 10/12/19 11:50 10/12/19 11:50 10/12/19 11:50 Doctor's Discharge - Discharge Referrals: STEVEN VILLALOBOS MD [Primary Care Provider] - Follow up as needed
[2019-10-12 12:50] LABS: ABSOLUTE EOSINOPHILS # (AUTO) 0.1 10^3/uL (0.0-0.6); ABSOLUTE LYMPHOCYTES (AUTO) 0.8 10^3/uL (0.5-4.7); ABSOLUTE MONOCYTES (AUTO) 0.8 10^3/uL (0.1-1.4); ABSOLUTE NEUT (AUTO) 4.3 10^3/uL (1.7-8.2); BASOPHILS % (AUTO) 0.4 % (0-2); EOSINOPHILS % (AUTO) 1.3 % (0-6); HEMATOCRIT 27.4 % (37.9-51.0); HEMOGLOBIN 9.5 g/dL (13.5-17.0); LYMPHOCYTES % (AUTO) 12.6 % (13-45); MEAN CORPUSCULAR HEMOGLOBIN 31.6 pg (27.0-33.4); MEAN CORPUSCULAR HGB CONC 34.8 g/dL (32.0-36.0); MEAN CORPUSCULAR VOLUME 91 fl (80-97); MONOCYTES % (AUTO) 13.1 % (3-13); RED BLOOD COUNT 3.02 10^6/uL (4.35-5.55); RED CELL DISTRIBUTION WIDTH 15.5 % (11.5-14.0); SEGMENTED NEUTROPHILS % (AUTO) 72.6 % (42-78); TOTAL CELLS COUNTED % (AUTO) 100 %
[2019-10-12 13:06] LABS: ALBUMIN 2.8 g/dL (3.5-5.0); ALKALINE PHOSPHATASE 111 U/L (38-126); ASPARTATE AMINO TRANSFERASE 73 U/L (17-59); BILIRUBIN,DIRECT 0.4 mg/dL (0.0-0.4); BILIRUBIN,TOTAL 1.6 mg/dL (0.2-1.3); BLOOD UREA NITROGEN 18 mg/dL (7-20); CALCIUM 8.8 mg/dL (8.4-10.2); CARBON DIOXIDE 25 mmol/L (22-30); CHLORIDE 108 mmol/L (98-107); GLUCOSE 106 mg/dL (75-110); POTASSIUM 4.1 mmol/L (3.6-5.0)
[2019-10-12 13:09] LABS: ANION GAP 5 (5-19)
[2019-10-12 13:13] LABS: PLATELET COUNT 80 10^3/uL (150-450)
[2019-10-12 13:47] LABS: APPEARANCE,URINE CLOUDY; BILIRUBIN,URINE NEGATIVE (NEGATIVE); COLOR,URINE AMBER; GLUCOSE, URINE NEGATIVE (NEGATIVE); KETONES,URINE NEGATIVE (NEGATIVE); PROTEIN,URINE 100 mg/dL (NEGATIVE); URINE SPECIFIC GRAVITY 1.014; UROBILINOGEN,URINE NEGATIVE mg/dL (<2.0)
--- NOTE | 2019-10-13 01:01 | EKG REPORT ---
SEVERITY:- NORMAL ECG - SINUS RHYTHM : Confirmed by: Nneka Gonzalez MD 13-Oct-2019 01:01:00
== END 2019-10-12 14:18 | disposition left against medical advice (07) ==
LOC: ER 11:22
DX: R55 Syncope and collapse (principal); E78.00 Pure hypercholesterolemia, unspecified; I10 Essential (primary) hypertension; Z86.718 Personal history of other venous thrombosis and embolism; Z79.01 Long term (current) use of anticoagulants; Z88.3 Allergy status to other anti-infective agents; Z88.6 Allergy status to analgesic agent; Z86.73 Personal history of transient ischemic attack (TIA), and cerebral infarction without residual deficits; Z87.442 Personal history of urinary calculi; Z90.49 Acquired absence of other specified parts of digestive tract
CPT/HCPCS: 36415; 80053; 81001; 85025; 87086; 93005; 93010; 99281

== ENCOUNTER 2019-10-17 20:02 | Emergency (ER) | payer MEDICARE ==
--- NOTE | 2019-10-17 21:32 | ER Document Report ---
ED Medical Screen (RME) - General Chief Complaint: Flank Pain Stated Complaint: BACK PAIN Time Seen by Provider: 10/17/19 21:24 Primary Care Provider: STEVEN VILLALOBOS MD [Primary Care Provider] - Follow up as needed Notes: HPI: 59-year-old male who is on Eliquis for DVT of the right leg presenting for removal of a Noble catheter. Patient states he was admitted at [facility] in [place] a week ago. He states he does not have good recollection of what was done to him or who he saw or who he was supposed to follow-up with. Patient apparently had a Noble catheter placed at that time states he had a kidney stone as well. Patient complaining of continued right flank pain. Denies fever nausea vomiting states he has been on antibiotics. States the urine in the Noble catheter bag is getting progressively redder. States he would like the catheter out. I have greeted and performed a rapid initial assessment of this patient. A comprehensive ED assessment and evaluation of the patient, analysis of test r esults and completion of the medical decision making process will be conducted by additional ED providers PHYSICAL EXAMINATION: GENERAL: Well-appearing, well-nourished and in no acute distress. HEAD: Atraumatic, normocephalic. EYES: sclera anicteric, conjunctiva are normal. ENT: Moist mucous membranes. NECK: Normal range of motion LUNGS: Normal work of breathing HEART: 2+ radial pulses bilaterally ABD: limited by positioning for exam in triage. : Deferred in triage but patient does have a Noble catheter bag strapped to the right leg with dark red urine present EXTREMITIES: No cyanosis. NEUROLOGICAL: No focal neurological deficits. Moves all extremities spontaneously and on command. PSYCH: Normal mood, normal affect. SKIN: Warm, Dry, normal turgor, no rashes or lesions noted. TRAVEL OUTSIDE OF THE [place] IN LAST 30 DAYS: No - Related Data Allergies/Adverse Reactions: erythromycin base Allergy (Verified 10/12/19 11:55) hydromorphone [From Dilaudid] Adverse Reaction (Verified 10/12/19 11:55) palpations ketorolac [From Toradol] Adverse Reaction (Verified 10/12/19 11:55) Home Medications: Eliquis Past Medical History - Past Medical History Cardiac Medical History: Reports: Hx DVT, Hx Hypercholesterolemia, Hx Hyp ertension Neurological Medical History: Reports: Hx Cerebrovascular Accident - TIA Endocrine Medical History: Denies: Hx Diabetes Mellitus Type 2 Renal/ Medical History: Reports: Hx Kidney Stones. Denies: Hx Peritoneal Dialysis GI Medical History: Reports: Hx Cirrhosis, Hx Hepatitis - History of hepatitis C. He has had treatment. Musculoskeltal Medical History: Reports Hx Arthritis Psychiatric Medical History: Reports: Hx Post Traumatic Stress Disorder Infectious Medical History: Reports: Hx Hepatitis - History of hepatitis C. He has had treatment. Past Surgical History: Reports: Hx Abdominal Surgery - hernia, Hx Appendectomy, Hx Cholecystectomy, Hx Herniorrhaphy, Hx Kidney (Renal Surgery) - kidney stones, bilateral ureteral stents on 02/08/2019, Hx Orthopedic Surgery - Has had cervical spine surgery, right Knee Replacement, Hx Vascular Surgery - removal of DVTs in legs, IVC filter placed - Immunizations Immunizations up to date: Yes Hx Diphtheria, Pertussis, Tetanus Vaccination: Yes Physical Exam - Vital signs Vitals: Temp Pulse Resp BP Pulse Ox 98.0 F 84 20 153/80 H 100 10/17/19 20:33 10/17/19 20:33 10/17/19 20:33 10/17/19 20:33 10/17/19 20:33 Course - Vital Signs Vital signs: Temp Pulse Resp BP Pulse Ox 98.0 F 84 20 153/80 H 100 10/17/19 20:33 10/17/19 20:33 10/17/19 20:33 10/17/19 20:33 10/17/19 20:33 Doctor's Discharge - Discharge Referrals: STEVEN VILLALOBOS MD [Primary Care Provider] - Follow up as needed
[2019-10-17 21:57] LABS: ABSOLUTE EOSINOPHILS # (AUTO) 0.1 10^3/uL (0.0-0.6); ABSOLUTE LYMPHOCYTES (AUTO) 1.2 10^3/uL (0.5-4.7); ABSOLUTE MONOCYTES (AUTO) 0.6 10^3/uL (0.1-1.4); ABSOLUTE NEUT (AUTO) 4.6 10^3/uL (1.7-8.2); BASOPHILS % (AUTO) 0.3 % (0-2); EOSINOPHILS % (AUTO) 1.3 % (0-6); HEMOGLOBIN 8.8 g/dL (13.5-17.0); LYMPHOCYTES % (AUTO) 18.3 % (13-45); MEAN CORPUSCULAR HEMOGLOBIN 30.6 pg (27.0-33.4); MEAN CORPUSCULAR HGB CONC 33.9 g/dL (32.0-36.0); MEAN CORPUSCULAR VOLUME 90 fl (80-97); MONOCYTES % (AUTO) 9.8 % (3-13); RED BLOOD COUNT 2.88 10^6/uL (4.35-5.55); RED CELL DISTRIBUTION WIDTH 15.4 % (11.5-14.0); SEGMENTED NEUTROPHILS % (AUTO) 70.3 % (42-78); TOTAL CELLS COUNTED % (AUTO) 100 %; WHITE BLOOD COUNT 6.6 10^3/uL (4.0-10.5)
[2019-10-17 22:01] LABS: INTERNATIONAL RATION (INR) 1.46; PROTHROMBIN TIME 17.9 SEC (11.4-15.4)
[2019-10-17 22:05] LABS: APPEARANCE,URINE CLOUDY; BILIRUBIN,URINE NEGATIVE (NEGATIVE); COLOR,URINE RED; GLUCOSE, URINE NEGATIVE (NEGATIVE); KETONES,URINE NEGATIVE (NEGATIVE); LEUKOCYTE ESTERASE,URINE SMALL (NEGATIVE); NITRITE,URINE NEGATIVE (NEGATIVE); PROTEIN,URINE 100 mg/dL (NEGATIVE); URINE SPECIFIC GRAVITY 1.014; UROBILINOGEN,URINE NEGATIVE mg/dL (<2.0)
[2019-10-17 22:12] LABS: ALBUMIN 2.7 g/dL (3.5-5.0); ALKALINE PHOSPHATASE 81 U/L (38-126); ASPARTATE AMINO TRANSFERASE 48 U/L (17-59); BILIRUBIN,TOTAL 0.7 mg/dL (0.2-1.3); BLOOD UREA NITROGEN 14 mg/dL (7-20); CALCIUM 8.5 mg/dL (8.4-10.2); GLUCOSE 85 mg/dL (75-110); POTASSIUM 4.3 mmol/L (3.6-5.0); TOTAL PROTEIN 5.8 g/dL (6.3-8.2)
[2019-10-17 22:13] LABS: PLATELET COUNT 88 10^3/uL (150-450)
[2019-10-17 22:18] LABS: CARBON DIOXIDE 25 mmol/L (22-30); CHLORIDE 112 mmol/L (98-107)
[2019-10-17 22:19] LABS: ANION GAP 3 (5-19)
[2019-10-18] MEDS ORDERED: OXYCODONE HCL IR 5 MG TABLET PO ONE (01:39)
--- NOTE | 2019-10-18 02:31 | ER Document Report ---
ED GI/ - General Chief Complaint: Flank Pain Stated Complaint: BACK PAIN Time Seen by Provider: 10/17/19 21:24 Primary Care Provider: STEVEN VILLALOBOS MD [Primary Care Provider] - Follow up as needed Mode of Arrival: Ambulatory Information source: Patient Notes: Patient reports that he wants his Noble catheter removed. Patient states it hurts him in his bladder and also in his back. Patient has known kidney stones and has stents in both ureters at this time. Patient has had a Noble catheter for at least the last 4 weeks. Patient has not followed up with urologist as was instructed to him. Patient states he has antibiotics that he is taking and he has pain medication that he takes as well. Patient insists that no one is really told him what he should be doing in terms of following up or when the catheter should be removed. Patient insisted if we do not remove the catheter that he plans to remove it using scissors to cut it off and pull it out. Patient denies any nausea vomiting fever chills back pain. Urine has been flowing without discomfort. Color is faint red. Patient is on Eliquis for chronic DVT lower extremity in the past. TRAVEL OUTSIDE OF THE [place] IN LAST 30 DAYS: No - HPI Patient complains to provider of: Hematuria, Other - Noble catheter pain and urinary bladder Onset: Other - In the past 4 weeks since catheter has been placed patient has complained of pain. Quality of pain: Stabbing Severity at maximum: Moderate Severity in ED: Moderate Pain Level: 4 Context: Other - All related to Noble catheter and urinary bladder Location: Other - Urinary bladder Associated symptoms: Hematuria Exacerbated by: Other - Chronic at this time Relieved by: Other - No relief despite pain medications. Similar symptoms previously: Yes Recently seen / treated by doctor: No Notes: 10/18/19 02:29 Patient states he has not been referred to a urologist and does not know which urologist he needs to follow-up with. Patient has been seen in vitamin or ureteral stents were placed. Unsure as to who placed a Noble catheter 4 weeks ago. - Related Data Allergies/Adverse Reactions: erythromycin base Allergy (Verified 10/12/19 11:55) hydromorphone [From Dilaudid] Adverse Reaction (Verified 10/12/19 11:55) palpations ketorolac [From Toradol] Adverse Reaction (Verified 10/12/19 11:55) Home Medications: Eliquis Past Medical History - Social History Smoking Status: Current Every Day Smoker Frequency of alcohol use: None Lives with: Family Family History: Reviewed & Not Pertinent Patient has suicidal ideation: No Patient has homicidal ideation: No - Past Medical History Cardiac Medical History: Reports: Hx DVT, Hx Hypercholesterolemia, Hx Hypertension Pulmonary Medical History: Reports: None Neurological Medical History: Reports: Hx Cerebrovascular Accident - TIA Endocrine Medical History: Denies: Hx Diabetes Mellitus Type 2 Renal/ Medical History: Reports: Hx Kidney Stones. Denies: Hx Peritoneal Dialysis Malignancy Medical History: Reports None GI Medical History: Reports: Hx Cirrhosis, Hx Hepatitis - History of hepatitis C. He has had treatment. Musculoskeletal Medical History: Reports Hx Arthritis Psychiatric Medical History: Reports: Hx Post Traumatic Stress Disorder Traumatic Medical History: Reports: None Infectious Medical History: Reports: Hx Hepatitis - History of hepatitis C. He has had treatment. Past Surgical History: Reports: Hx Abdominal Surgery - hernia, Hx Appendectomy, Hx Cholecystectomy, Hx Herniorrhaphy, Hx Kidney (Renal Surgery) - kidney stones, bilateral ureteral stents on 02/08/2019, Hx Orthopedic Surgery - Has had cervical spine surgery, right Knee Replacement, Hx Vascular Surgery - removal of DVTs in legs, IVC filter placed - Immunizations Immunizations up to date: Yes Hx Diphtheria, Pertussis, Tetanus Vaccination: Yes Review of Systems - Review of Systems Constitutional: Other - Chronic pain and worsening pain with Noble catheter in place x4 weeks EENT: No symptoms reported Cardiovascular: No symptoms reported Respiratory: No symptoms reported Genitourinary: Hematuria, Other - Bladder pain with Noble catheter in place Male Genitourinary: Other - Bladder pain with Noble catheter in place x4 weeks Musculoskeletal: No symptoms reported Skin: No symptoms reported Hematologic/Lymphatic: No symptoms reported Neurological/Psychological: Other - PTSD Physical Exam - Vital signs Vitals: Temp Pulse Resp BP Pulse Ox 98.0 F 84 20 153/80 H 100 10/17/19 20:33 10/17/19 20:33 10/17/19 20:33 10/17/19 20:33 10/17/19 20:33 Interpretation: Normal - General General appearance: Appears well, Alert - HEENT Head: Normocephalic, Atraumatic Eyes: Normal Pupils: PERRL - Respiratory Respiratory status: No respiratory distress Chest status: Nontender Breath sounds: Normal Chest palpation: Normal - Cardiovascular Rhythm: Regular Heart sounds: Normal auscultation Murmur: No - Abdominal Inspection: Normal Distension: No distension Bowel sounds: Normal Tenderness: Nontender Organomegaly: No organomegaly - Genitourinary Tenderness: Nontender Notes: Noble catheter draining into a leg bag attached to the right leg. Blood is faint red color and fluid no clots seen. - Back Back: Normal, Nontender - Extremities General upper extremity: Normal inspection, Nontender, Normal color, Normal ROM, Normal temperature General lower extremity: Normal inspection, Nontender, Normal color, Normal ROM, Normal temperature, Normal weight bearing. No: Carole's sign - Neurological Neuro grossly intact: Yes Cognition: Normal Orientation: AAOx4 Marcella Coma Scale Eye Opening: Spontaneous Wilner Coma Scale Verbal: Oriented Marcella Coma Scale Motor: Obeys Commands Wilner Coma Scale Total: 15 Speech: Normal Motor strength normal: LUE, RUE, LLE, RLE Sensory: Normal - Psychological Associated symptoms: Normal affect, Normal mood - Skin Skin Temperature: Warm Skin Moisture: Dry Skin Color: Normal Course - Re-evaluation Re-evalutation: 10/18/19 02:34 Patient resting comfortable after Noble catheter removed. Removed without any consequence. - Vital Signs Vital signs: Temp Pulse Resp BP Pulse Ox 97.7 F 69 18 144/73 H 100 10/17/19 23:44 10/17/19 23:44 10/17/19 23:44 10/17/19 23:44 10/17/19 23:44 - Laboratory Result Diagrams: 10/17/19 21:30 10/17/19 21:30 Laboratory results interpreted by me: 10/17/19 10/17/19 10/17/19 21:30 21:30 21:30 RBC 2.88 L Hgb 8.8 L Hct 26.0 L RDW 15.4 H Plt Count 88 L PT 17.9 H Chloride 112 H Anion Gap 3 L Total Protein 5.8 L Albumin 2.7 L Urine Protein Urine Blood Ur Leukocyte Esterase 10/17/19 21:30 RBC Hgb Hct RDW Plt Count PT Chloride Anion Gap Total Protein Albumin Urine Protein 100 H Urine Blood LARGE H Ur Leukocyte Esterase SMALL H Discharge - Discharge Clinical Impression: Kidney stones Hematuria Qualifiers: Hematuria type: gross Qualified Code(s): R31.0 - Gross hematuria Condition: Stable Disposition: HOME, SELF-CARE Additional Instructions: Kidney Stone You are passing or have passed a kidney stone. These stones are usually due to increased calcium or uric acid concentrations in your urine. Stones within the kidney itself are not painful. The pain occurs as the stone leaves the kidney to pass down the long tube, called the ureter, leading to the bladder. If the stone is small, it will usually pass by itself. Most patients can pass the stone at home. You will usually receive medications for pain, nausea or vomiting, and sometimes a medication to assist in passing the kidney stone. However, if the pain is very severe or if vomiting prevents you from taking oral pain medications, you may need to return for further treatment. Drink three or four quarts of fluids per day. You will be given pain medication (if needed) and urine strainers. Strain all your urine to see if the stone passes. If your doctor has asked you to bring the stone in for analysis, return with the stone once it has passed. Return if pain or vomiting become severe, if you develop a high fever, if you are unable to pass your urine, or if other unusual symptoms occur. Hematuria Hematuria, or blood in your urine, can be caused by minor medical problems, such as a bladder infection, or by more serious medical conditions, such as kidney stones or even tumors of the bladder or kidney. If the cause of the hematuria is known (such as a bladder infection) and can be treated, it may not need further evaluation. If the cause is not known, it will usually require further evaluation by a specialist, such as a urologist. In particular, unexplained hematuria in the older patient must be evaluated to rule out a serious condition, such as a bladder or kidney tumor. If the hematuria worsens or you are passing clots and then are unable to urinate, you should be re-evaluated. A catheter may need to be placed in the bladder to permit passage of urine. If you develop high fever, severe pain, or other new or worsening symptoms, return to the Emergency Department for re- evaluation. Continue your antibiotic and pain medication that you have. Follow-up with Dr. Ruano is listed on your discharge papers as. He is a urologist in [facility]. He is same other medications. Return to emergency department if you have any urinary obstruction. Referrals: STEVEN VILLALOBOS MD [Primary Care Provider] - Follow up as needed JOSELYN RUANO MD [NO LOCAL MD] - Follow up as needed
[2019-10-18 02:38] VITALS: BP 156/90
== END 2019-10-18 02:43 | disposition home or self-care (01) ==
LOC: ER 20:02
DX: N20.0 Calculus of kidney (principal); R31.0 Gross hematuria; Z46.6 Encounter for fitting and adjustment of urinary device; R10.9 Unspecified abdominal pain; E78.00 Pure hypercholesterolemia, unspecified; I10 Essential (primary) hypertension; Z87.442 Personal history of urinary calculi; Z86.718 Personal history of other venous thrombosis and embolism; Z79.01 Long term (current) use of anticoagulants; Z88.3 Allergy status to other anti-infective agents; Z88.6 Allergy status to analgesic agent; Z86.73 Personal history of transient ischemic attack (TIA), and cerebral infarction without residual deficits; Z86.19 Personal history of other infectious and parasitic diseases; Z90.49 Acquired absence of other specified parts of digestive tract
CPT/HCPCS: 99284; 36415; 85025; 85610; 80053; 81001; A9270

== ENCOUNTER 2019-11-29 02:58 | Emergency (ER) | payer MEDICARE ==
[2019-11-29] MEDS ORDERED: ONDANSETRON HCL INJ/PF 4 MG/2 ML SDV IV ONE ×2 (03:48→18:42)
[2019-11-29] MEDS: MORPHINE SULFATE 10 MG/ML INJ IV PRN ×4 (03:56→23:21)
[2019-11-29 04:04] LABS: ABSOLUTE EOSINOPHILS # (AUTO) 0.1 10^3/uL (0.0-0.6); ABSOLUTE MONOCYTES (AUTO) 0.5 10^3/uL (0.1-1.4); ABSOLUTE NEUT (AUTO) 3.2 10^3/uL (1.7-8.2); BASOPHILS % (AUTO) 0.1 % (0-2); EOSINOPHILS % (AUTO) 2.1 % (0-6); HEMATOCRIT 27.4 % (37.9-51.0); MEAN CORPUSCULAR HGB CONC 32.8 g/dL (32.0-36.0); MEAN CORPUSCULAR VOLUME 79 fl (80-97); MONOCYTES % (AUTO) 10.9 % (3-13); RED BLOOD COUNT 3.46 10^6/uL (4.35-5.55); RED CELL DISTRIBUTION WIDTH 16.8 % (11.5-14.0); SEGMENTED NEUTROPHILS % (AUTO) 65.9 % (42-78); TOTAL CELLS COUNTED % (AUTO) 100 %; WHITE BLOOD COUNT 4.8 10^3/uL (4.0-10.5)
[2019-11-29 04:22] LABS: APPEARANCE,URINE TURBID; BILIRUBIN,URINE NEGATIVE (NEGATIVE); COLOR,URINE YELLOW; GLUCOSE, URINE NEGATIVE (NEGATIVE); KETONES,URINE NEGATIVE (NEGATIVE); LEUKOCYTE ESTERASE,URINE MODERATE (NEGATIVE); NITRITE,URINE POSITIVE (NEGATIVE); PROTEIN,URINE 100 mg/dL (NEGATIVE); URINE SPECIFIC GRAVITY 1.013; UROBILINOGEN,URINE NEGATIVE mg/dL (<2.0)
[2019-11-29 04:26] LABS: PLATELET COUNT 84 10^3/uL (150-450)
[2019-11-29 04:30] LABS: ALBUMIN 3.3 g/dL (3.5-5.0); ALKALINE PHOSPHATASE 96 U/L (38-126); ANION GAP 8 (5-19); ASPARTATE AMINO TRANSFERASE 59 U/L (17-59); BILIRUBIN,TOTAL 0.7 mg/dL (0.2-1.3); BLOOD UREA NITROGEN 8 mg/dL (7-20); CALCIUM 8.6 mg/dL (8.4-10.2); CARBON DIOXIDE 23 mmol/L (22-30); CHLORIDE 109 mmol/L (98-107); GLUCOSE 190 mg/dL (75-110); POTASSIUM 3.9 mmol/L (3.6-5.0); TOTAL PROTEIN 6.7 g/dL (6.3-8.2)
[2019-11-29] MEDS ORDERED: NITROFURANTOIN MONOHYD/M-CRYST 100 MG CAPSULE PO ONE (05:10)
--- NOTE | 2019-11-29 05:35 | RADIOLOGY REPORT (SQ) ---
CLINICAL HISTORY: right flank pain hx kidney stones COMPARISON: 05/08/2019. TECHNIQUE: CT ABDOMEN PELVIS WITHOUT IV CONTRAST on 11/29/2019 4:07 AM [employer]MENT [employer] This exam was performed according to our departmental dose-optimization program, which includes automated exposure control, adjustment of the mA and/or kV according to patient size and/or use of iterative reconstruction technique. FINDINGS: Lower lungs are clear. Abdomen: Liver is cirrhotic in morphology. There is no biliary dilatation. Cholecystectomy was performed. Spleen is enlarged at 16.3 cm. There are multiple left upper quadrant vascular collaterals. Adrenal glands are normal. There is a 1.2 cm lower pole right renal calculus. There is mild bilateral hydronephrosis. There are bilateral ureteral stents in place. Abdominal aorta is normal in course and caliber without aneurysm. There is no free air. There is no retroperitoneal adenopathy. Pelvis: There is no bowel obstruction. Urinary bladder is unremarkable. There is no free fluid. Appendix is not well seen. Skeleton: There are no acute osseous findings. No suspicious bony lesions. IMPRESSION: Right nephrolithiasis with mild bilateral hydronephrosis with ureteral stents in place.
--- NOTE | 2019-11-29 05:55 | ER Document Report ---
ED Medical Screen (RME) - General Chief Complaint: Possible Kidney Stone Stated Complaint: RIGHT SIDE PAIN Time Seen by Provider: 11/29/19 04:06 Primary Care Provider: STEVEN VILLALOBOS MD [Primary Care Provider] - Follow up as needed Mode of Arrival: Ambulatory Information source: Patient Notes: 59-year-old male presents emergency department with complaints of right-sided flank pain and vomiting for the past 2 days. Has history of kidney stones and stents placed. Denies fever. Patient reports he has been unable to sleep due to the pain. I have greeted and performed a rapid initial assessment of this patient. A comprehensive ED assessment and evaluation of the patient, analysis of test results and completion of the medical decision making process will be conducted by additional ED providers. TRAVEL OUTSIDE OF THE [place] IN LAST 30 DAYS: No - Related Data Allergies/Adverse Reactions: erythromycin base Allergy (Verified 11/29/19 03:01) hydromorphone [From Dilaudid] Adverse Reaction (Verified 11/29/19 03:01) palpations ketorolac [From Toradol] Adverse Reaction (Verified 11/29/19 03:01) Home Medications: Unable to update at this time, pt unable to confirm medication at this time. Past Medical History - Social History Chew tobacco use (# tins/day): No Frequency of alcohol use: None Drug Abuse: None - Past Medical History Cardiac Medical History: Reports: Hx DVT, Hx Hypercholesterolemia, Hx Hypertension Neurological Medical History: Reports: Hx Cerebrovascular Accident - TIA Endocrine Medical History: Denies: Hx Diabetes Mellitus Type 2 Renal/ Medical History: Reports: Hx Kidney Stones. Denies: Hx Peritoneal Dialysis GI Medical History: Reports: Hx Cirrhosis, Hx Hepatitis - History of hepatitis C. He has had treatment. Musculoskeltal Medical History: Reports Hx Arthritis Psychiatric Medical History: Reports: Hx Post Traumatic Stress Disorder Infectious Medical History: Reports: Hx Hepatitis - History of hepatitis C. He has had treatment. Past Surgical History: Reports: Hx Abdominal Surgery - hernia, Hx Appendectomy, Hx Cholecystectomy, Hx Herniorrhaphy, Hx Kidney (Renal Surgery) - kidney stones, bilateral ureteral stents on 02/08/2019, Hx Orthopedic Surgery - Has had cervical spine surgery, right Knee Replacement, Hx Vascular Surgery - removal of DVTs in legs, IVC filter placed - Immunizations Immunizations up to date: Yes Hx Diphtheria, Pertussis, Tetanus Vaccination: Yes Physical Exam - Vital signs Vitals: Temp Pulse Resp BP Pulse Ox 98.4 F 92 18 203/92 H 100 11/29/19 03:01 11/29/19 03:01 11/29/19 03:01 11/29/19 03:01 11/29/19 03:01 Course - Vital Signs Vital signs: Temp Pulse Resp BP Pulse Ox 98.4 F 92 22 H 141/81 H 100 11/29/19 03:01 11/29/19 03:01 11/29/19 05:01 11/29/19 05:01 11/29/19 05:01 - Laboratory Result Diagrams: 11/29/19 03:48 11/29/19 03:48 Laboratory results interpreted by me: 11/29/19 11/29/19 11/29/19 03:48 03:48 03:48 RBC 3.46 L Hgb 9.0 L Hct 27.4 L MCV 79 L MCH 26.0 L RDW 16.8 H Plt Count 84 L Chloride 109 H Glucose 190 H Albumin 3.3 L Urine Protein 100 H Urine Blood LARGE H Urine Nitrite POSITIVE H Ur Leukocyte Esterase MODERATE H Doctor's Discharge - Discharge Referrals: STEVEN VILLALOBOS MD [Primary Care Provider] - Follow up as needed
[2019-11-29] MEDS ORDERED: CEFTRIAXONE 1 GM/D5W RTU 1 GM/50 ML RTUPB IV ONE (09:30)
--- NOTE | 2019-11-29 10:01 | ER Document Report ---
ED GI/ - General Chief Complaint: Possible Kidney Stone Stated Complaint: RIGHT SIDE PAIN Time Seen by Provider: 11/29/19 04:06 Primary Care Provider: STEVEN VILLALOBOS MD [Primary Care Provider] - Follow up as needed Mode of Arrival: Ambulatory Notes: HPI: Patient is a 59-year-old male who presents today with some flank pain to the right side starting 2 days ago. Vomiting x3. No fevers or diarrhea. No radiation to the abdomen. Patient supposedly had bilateral renal stents placed at [facility] on 3 years ago secondary to obstructions. 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 Patient does not have a current urologist. ROS: See HPI All other review of systems reviewed and otherwise negative Reviewed vital signs and nursing note as charted by RN. PHYSICAL EXAM: CONSTITUTIONAL: Alert and oriented and responds appropriately to questions. Well-appearing; well-nourished HEAD: Normocephalic; atraumatic EYES: Sclerae non-icteric ENT: Normal nose; no rhinorrhea; moist mucous membranes; pharynx without lesions noted NECK: Supple without meningismus; non-tender; no cervical lymphadenopathy, no masses CARD: Regular rate and rhythm; no murmurs; symmetric distal pulses RESP: Normal chest excursion without splinting or tachypnea; breath sounds clear and equal bilaterally ABD/GI: Normal bowel sounds; non-distended; soft, non-tender; no palpable o rganomegaly or masses BACK: Patient has right-sided CVA tenderness with no swelling or erythema noted EXT: Normal ROM in all joints; non-tender to palpation; no edema SKIN: No acute lesions noted NEURO: CN 2-12 intact; 5/5 bilateral upper and lower extremity strength with sensation intact to light touch PSYCH: The patient's mood and manner are appropriate. Grooming and personal hygiene are appropriate. TRAVEL OUTSIDE OF THE [place] IN LAST 30 DAYS: No - Related Data Allergies/Adverse Reactions: erythromycin base Allergy (Verified 11/29/19 03:01) hydromorphone [From Dilaudid] Adverse Reaction (Verified 11/29/19 03:01) palpations ketorolac [From Toradol] Adverse Reaction (Verified 11/29/19 03:01) Home Medications: Unable to update at this time, pt unable to confirm medication at this time. Past Medical History - General Information source: Patient - Social History Smoking Status: Current Every Day Smoker Chew tobacco use (# tins/day): No Frequency of alcohol use: None Drug Abuse: None Family History: Reviewed & Not Pertinent Patient has suicidal ideation: No Patient has homicidal ideation: No - Past Medical History Cardiac Medical History: Reports: Hx DVT, Hx Hypercholesterolemia, Hx Hyp ertension Neurological Medical History: Reports: Hx Cerebrovascular Accident - TIA Endocrine Medical History: Denies: Hx Diabetes Mellitus Type 2 Renal/ Medical History: Reports: Hx Kidney Stones. Denies: Hx Peritoneal Nany lysis GI Medical History: Reports: Hx Cirrhosis, Hx Hepatitis - History of hepatitis C. He has had treatment. Musculoskeletal Medical History: Reports Hx Arthritis Psychiatric Medical History: Reports: Hx Post Traumatic Stress Disorder Infectious Medical History: Reports: Hx Hepatitis - History of hepatitis C. He has had treatment. Past Surgical History: Reports: Hx Abdominal Surgery - hernia, Hx Appendectomy, Hx Cholecystectomy, Hx Herniorrhaphy, Hx Kidney (Renal Surgery) - kidney stones, bilateral ureteral stents on 02/08/2019, Hx Orthopedic Surgery - Has had cervical spine surgery, right Knee Replacement, Hx Vascular Surgery - removal of DVTs in legs, IVC filter placed - Immunizations Immunizations up to date: Yes Hx Diphtheria, Pertussis, Tetanus Vaccination: Yes Physical Exam - Vital signs Vitals: Temp Pulse Resp BP Pulse Ox 98.4 F 92 18 203/92 H 100 11/29/19 03:01 11/29/19 03:01 11/29/19 03:01 11/29/19 03:01 11/29/19 03:01 Course - Re-evaluation Re-evalutation: Given the above history and physical, we will proceed with a urine analysis, renal colic CT scan basic labs to evaluate the platelet count, and reassess. 11/29/19 10:00 Given the above history and physical examination, with findings as recorded, I had a long discussion with the patient and his the need for transfer for urology evaluation. 11/29/19 10:[address] Yu the urologist and then the hospitalist Dr. Luis M Moon. They have accepted the patient for transfer. Patient's pain is controlled. Patient will be transferred. Antibiotics have been provided. - Vital Signs Vital signs: Temp Pulse Resp BP Pulse Ox 98.0 F 92 23 H 151/85 H 100 11/29/19 08:20 11/29/19 03:01 11/29/19 10:01 11/29/19 10:01 11/29/19 10:01 - Laboratory Result Diagrams: 11/29/19 03:48 11/29/19 03:48 Laboratory results interpreted by me: 11/29/19 11/29/19 11/29/19 03:48 03:48 03:48 RBC 3.46 L Hgb 9.0 L Hct 27.4 L MCV 79 L MCH 26.0 L RDW 16.8 H Plt Count 84 L Chloride 109 H Glucose 190 H Albumin 3.3 L Urine Protein 100 H Urine Blood LARGE H Urine Nitrite POSITIVE H Ur Leukocyte Esterase MODERATE H Discharge - Discharge Clinical Impression: Kidney stone on right side, Pyelonephritis Condition: Fair Disposition: [facility] Referrals: STEVEN VILLALOBOS MD [Primary Care Provider] - Follow up as needed
[2019-11-29] MEDS ORDERED: NORMAL SALINE 1000 ML 1,000 ML IV ONE (10:29)
[2019-11-29] MEDS ORDERED: MORPHINE SULFATE 10 MG/ML INJ IV ONE ×2 (16:20→18:42)
[2019-11-30] MEDS ORDERED: HALOPERIDOL LACTATE INJ 5 MG/1 ML VIAL IV ONE (02:55)
[2019-11-30] MEDS ORDERED: DIPHENHYDRAMINE HCL 50 MG/ML VIAL IV ONE (02:56)
[2019-11-30] MEDS ORDERED: MORPHINE SULFATE 10 MG/ML INJ IV PRN (02:56)
[2019-11-30] MEDS: MORPHINE SULFATE 10 MG/ML INJ IV PRN ×3 (06:23→13:30)
[2019-11-30 07:57] VITALS: BP 129/75
[2019-11-30] MEDS ORDERED: MORPHINE SULFATE 10 MG/ML INJ IV ONE (14:27)
== END 2019-11-30 14:45 | disposition short-term general hospital (02) ==
LOC: ER 02:58
DX: N13.6 Pyonephrosis (principal); R10.9 Unspecified abdominal pain; R11.10 Vomiting, unspecified; I10 Essential (primary) hypertension; F17.200 Nicotine dependence, unspecified, uncomplicated; Z96.0 Presence of urogenital implants; Z88.1 Allergy status to other antibiotic agents
CPT/HCPCS: 96376; 99285; 96361; 96375; 96365; 36415; 87086; 83690; 85025; 80053; 81001; 74176; J1200; J2270 ×2; J2405; J7030; J0696; A9270; J8499

== ENCOUNTER 2019-12-22 03:18 | Emergency (ER) | payer MEDICARE ==
[2019-12-22 04:04] LABS: APPEARANCE,URINE CLOUDY; BILIRUBIN,URINE NEGATIVE (NEGATIVE); COLOR,URINE AMBER; GLUCOSE, URINE NEGATIVE (NEGATIVE); KETONES,URINE NEGATIVE (NEGATIVE); PROTEIN,URINE 100 mg/dL (NEGATIVE)
[2019-12-22 04:13] LABS: ABSOLUTE EOSINOPHILS # (AUTO) 0.2 10^3/uL (0.0-0.6); ABSOLUTE LYMPHOCYTES (AUTO) 1.5 10^3/uL (0.5-4.7); ABSOLUTE MONOCYTES (AUTO) 0.5 10^3/uL (0.1-1.4); ABSOLUTE NEUT (AUTO) 4.2 10^3/uL (1.7-8.2); BASOPHILS % (AUTO) 0.6 % (0-2); EOSINOPHILS % (AUTO) 2.4 % (0-6); HEMATOCRIT 32.1 % (37.9-51.0); HEMOGLOBIN 10.3 g/dL (13.5-17.0); LYMPHOCYTES % (AUTO) 23.1 % (13-45); MEAN CORPUSCULAR HEMOGLOBIN 24.3 pg (27.0-33.4); MEAN CORPUSCULAR VOLUME 76 fl (80-97); MONOCYTES % (AUTO) 8.6 % (3-13); RED BLOOD COUNT 4.23 10^6/uL (4.35-5.55); SEGMENTED NEUTROPHILS % (AUTO) 65.3 % (42-78); TOTAL CELLS COUNTED % (AUTO) 100 %; WHITE BLOOD COUNT 6.4 10^3/uL (4.0-10.5)
[2019-12-22 04:28] LABS: ALBUMIN 3.5 g/dL (3.5-5.0); ALKALINE PHOSPHATASE 127 U/L (38-126); ANION GAP 7 (5-19); ASPARTATE AMINO TRANSFERASE 37 U/L (17-59); BILIRUBIN,DIRECT 0.3 mg/dL (0.0-0.4); BILIRUBIN,TOTAL 1.2 mg/dL (0.2-1.3); BLOOD UREA NITROGEN 12 mg/dL (7-20); CALCIUM 8.9 mg/dL (8.4-10.2); CARBON DIOXIDE 23 mmol/L (22-30); CHLORIDE 110 mmol/L (98-107); GLUCOSE 98 mg/dL (75-110); POTASSIUM 3.6 mmol/L (3.6-5.0); TOTAL PROTEIN 7.6 g/dL (6.3-8.2)
[2019-12-22 04:41] LABS: PLATELET COUNT 92 10^3/uL (150-450)
--- NOTE | 2019-12-22 04:46 | RADIOLOGY REPORT (SQ) ---
CLINICAL INDICATION: B/L renal US, no need to look at aorta. Flank pain.. TECHNIQUE: Real time multiplanar ultrasonographic sampson scale imaging was obtained of the kidneys. 41 static images obtained. Multiple cine loops COMPARISON: None. CORRELATION: CT November 29, 2019. FINDINGS: The right kidney measures 14.0 x 6.6 x 7.2 centimeters. 1.2 cm calculus. No hydronephrosis. The renal parenchyma is of normal contour and echogenicity. The left kidney measures 13.1 x 5.9 x 5.8 centimeters. No hydronephrosis. Complex cyst mid pole measuring 1.7 cm. The renal parenchyma is of normal contour and echogenicity. The aorta is not well seen. Urinary bladder demonstrate echogenic foci. Are double-J stents still present? Urinary bladder is relatively decompressed IMPRESSION: No evidence of hydronephrosis. Nonobstructing nephrolithiasis of the right kidney. Aorta is not seen on current examination but was normal on CT earlier this month..
--- NOTE | 2019-12-22 05:13 | ER Document Report ---
ED General - General Chief Complaint: Low Back Pain Stated Complaint: LOWER BACK PAIN Time Seen by Provider: 12/22/19 03:19 Primary Care Provider: STEVEN VILLALOBOS MD [Primary Care Provider] - Follow up as needed Notes: 59-year-old male presents the emergency department complaining of low back pain that has been constant since 2 weeks ago and progressively worsened over the past 2 days. Patient states that the back pain is bilateral. 2 weeks ago he was transferred from this hospital to [facility] due to infection with stents and possible infected obstructing stone. Patient states that it [facility] they swapped out his right-sided stent because it was "too old" and stated that he will have to have the left-sided stent taken out eventually. Patient states that his pain never improved at all after this procedure but is been worsening for the past few days. He denies any fevers, denies any dysuria, does complain of blood in his urine. States he called the urologist [facility] and spoke with the nurse and was told to go to the emergency department. States that he does have a 10 mg Percocet which he takes with mild relief. TRAVEL OUTSIDE OF THE [place] IN LAST 30 DAYS: No - Related Data Allergies/Adverse Reactions: erythromycin base Allergy (Verified 11/29/19 03:01) hydromorphone [From Dilaudid] Adverse Reaction (Verified 11/29/19 03:01) palpations ketorolac [From Toradol] Adverse Reaction (Verified 11/29/19 03:01) Past Medical History - General Information source: Patient, [facility] Records - Social History Smoking Status: Current Every Day Smoker - Quit in 2003. Frequency of alcohol use: None Drug Abuse: None Family History: Reviewed & Not Pertinent Patient has suicidal ideation: No Patient has homicidal ideation: No - Past Medical History Cardiac Medical History: Reports: Hx DVT, Hx Hypercholesterolemia, Hx Hypertension Neurological Medical History: Reports: Hx Cerebrovascular Accident - TIA Endocrine Medical History: Denies: Hx Diabetes Mellitus Type 2 Renal/ Medical History: Reports: Hx Kidney Stones. Denies: Hx Peritoneal Dialysis GI Medical History: Reports: Hx Cirrhosis, Hx Hepatitis - History of hepatitis C. He has had treatment. Musculoskeletal Medical History: Reports Hx Arthritis Psychiatric Medical History: Reports: Hx Post Traumatic Stress Disorder Infectious Medical History: Reports: Hx Hepatitis - History of hepatitis C. He has had treatment. Past Surgical History: Reports: Hx Abdominal Surgery - hernia, Hx Appendectomy, Hx Cholecystectomy, Hx Herniorrhaphy, Hx Kidney (Renal Surgery) - kidney stones, bilateral ureteral stents on 02/08/2019, right stent removal, Hx Orthopedic Surgery - Has had cervical spine surgery, right Knee Replacement, Hx Vascular Surgery - removal of DVTs in legs, IVC filter placed - Immunizations Immunizations up to date: Yes Hx Diphtheria, Pertussis, Tetanus Vaccination: Yes Review of Systems - Review of Systems Constitutional: No symptoms reported. denies: Chills, Diaphoresis, Fever EENT: No symptoms reported Gastrointestinal: No symptoms reported Genitourinary: See HPI, Flank pain, Hematuria. denies: Dysuria, Discharge Musculoskeletal: See HPI, Back pain -: Yes All other systems reviewed and negative Physical Exam - Vital signs Vitals: Temp Pulse Resp BP Pulse Ox 97.6 F 74 18 166/88 H 100 12/22/19 03:20 12/22/19 03:20 12/22/19 03:20 12/22/19 03:20 12/22/19 03:20 Interpretation: Hypertensive - Notes Notes: GENERAL: Alert, interacts well. No acute distress. Sitting up in bed. HEAD: Normocephalic, atraumatic EYES: Pupils equal, round and reactive to light, extraocular movements intact. ENT: Oral mucosa moist, tongue midline. NECK: Full range of motion, supple, trachea midline. LUNGS: Clear to auscultation bilaterally, no wheezes, rales or rhonchi, no respiratory distress. HEART: Regular rate and rhythm, no murmurs, gallops, rubs. ABDOMEN: Soft, minimal suprapubic tenderness to palpation, nondistended, bowel sounds present in all 4 quadrants. Bilateral CVA tenderness to percussion. EXTREMITIES: Moves all 4 extremities spontaneously, no edema, radial and dorsalis pedis pulses 2/4 bilaterally. No cyanosis. NEUROLOGICAL: Alert and oriented x3, normal speech. PSYCH: Normal mood, normal affect. SKIN: Warm, Dry, normal turgor. Course - Re-evaluation Re-evalutation: 12/22/19 05:10 CBC shows improved anemia with hemoglobin 10.3, platelets slightly improved as well at 92, CMP grossly unremarkable only slightly elevated alkaline phosphatase at 127, urinalysis shows large blood and large leukocyte esterase with only trace bacteria, the nitrites have resolved. Renal ultrasound shows resolved hydronephrosis and no evidence of obstructing calculi. At present I suspect that this is not true infection but rather blood due to stents and recent procedure however I would like to discuss this with urology at [facility] before I make a final decision. I have called the transfer line and am awaiting a call back. 12/22/19 05:18 Dr. Steele agrees that without fever or leukocytosis that the urine should be sent for culture but no antibiotics need to be started. States that stents tend to be quite painful and are likely to continue to be painful until the stents a re removed. Patient will thus be discharged home and instructed to follow-up with his urologist as an outpatient. - Vital Signs Vital signs: Temp Pulse Resp BP Pulse Ox 97.6 F 74 18 166/88 H 100 12/22/19 03:20 12/22/19 03:20 12/22/19 03:20 12/22/19 03:20 12/22/19 03:20 - Laboratory Result Diagrams: 12/22/19 03:48 12/22/19 03:48 Laboratory results interpreted by me: 12/22/19 12/22/19 12/22/19 03:48 03:48 03:48 RBC 4.23 L Hgb 10.3 L Hct 32.1 L MCV 76 L MCH 24.3 L RDW 19.0 H Plt Count 92 L Chloride 110 H Alkaline Phosphatase 127 H Urine Protein 100 H Urine Blood LARGE H Urine Urobilinogen 2.0 H Leukocyte Esterase Rfl LARGE H Discharge - Discharge Clinical Impression: Pain due to ureteral stent Qualifiers: Encounter type: initial encounter Qualified Code(s): T83.84XA - Pain due to genitourinary prosthetic devices, implants and grafts, initial encounter Hematuria Qualifiers: Hematuria type: gross Qualified Code(s): R31.0 - Gross hematuria Condition: Stable Disposition: HOME, SELF-CARE Additional Instructions: Today we found blood in your urine but no signs of infection. There is no evidence of remaining hydronephrosis (obstruction) in your kidneys. I discussed your case with Dr. Steele from [facility], he states that you do not need to be started on antibiotics at this time as your white blood cell count is normal and there is no sign of fever at this time. He acknowledges that stents can be quite painful. You and I have discussed your frustration with your inability to have your pain completely controlled by your pain management doctor with a new source of pain. I would suggest that you have your urologist call and speak directly with your pain management doctor if you feel like you need increased pain medication. Referrals: STEVEN VILLALOBOS MD [Primary Care Provider] - Follow up as needed
[2019-12-22] MEDS ORDERED: OXYCODONE HCL SR 10 MG TABLET PO ONE (05:33)
[2019-12-22 05:46] VITALS: BP 150/73
== END 2019-12-22 05:52 | disposition home or self-care (01) ==
LOC: ER 03:18
DX: T83.84XA Pain due to genitourinary prosthetic devices, implants and grafts, initial encounter (principal); Y83.8 Other surgical procedures as the cause of abnormal reaction of the patient, or of later complication, without mention of misadventure at the time of the procedure; M54.5 Low back pain; R10.9 Unspecified abdominal pain; R31.0 Gross hematuria; D64.9 Anemia, unspecified; R74.0 Nonspecific elevation of levels of transaminase and lactic acid dehydrogenase [LDH]; I10 Essential (primary) hypertension; Z88.1 Allergy status to other antibiotic agents; Z87.891 Personal history of nicotine dependence
CPT/HCPCS: 99284; 36415; 87086; 85025; 87088; 80053; 81001; 87186; 76770; A9270

== ENCOUNTER 2020-01-19 20:47 | Emergency (ER) | payer MEDICARE ==
[2020-01-19] MEDS ORDERED: NORMAL SALINE 1000 ML 1,000 ML IV ONE (21:16)
[2020-01-19] MEDS ORDERED: ONDANSETRON HCL INJ/PF 4 MG/2 ML SDV IV ONE (21:16)
[2020-01-19 21:33] LABS: ABSOLUTE EOSINOPHILS # (AUTO) 0.1 10^3/uL (0.0-0.6); ABSOLUTE LYMPHOCYTES (AUTO) 1.1 10^3/uL (0.5-4.7); ABSOLUTE MONOCYTES (AUTO) 0.6 10^3/uL (0.1-1.4); ABSOLUTE NEUT (AUTO) 2.8 10^3/uL (1.7-8.2); BASOPHILS % (AUTO) 0.3 % (0-2); HEMATOCRIT 28.6 % (37.9-51.0); HEMOGLOBIN 9.4 g/dL (13.5-17.0); LYMPHOCYTES % (AUTO) 24.2 % (13-45); MEAN CORPUSCULAR HEMOGLOBIN 24.9 pg (27.0-33.4); MEAN CORPUSCULAR HGB CONC 32.8 g/dL (32.0-36.0); MEAN CORPUSCULAR VOLUME 76 fl (80-97); MONOCYTES % (AUTO) 12.6 % (3-13); RED BLOOD COUNT 3.76 10^6/uL (4.35-5.55); RED CELL DISTRIBUTION WIDTH 21.4 % (11.5-14.0); SEGMENTED NEUTROPHILS % (AUTO) 60.9 % (42-78); TOTAL CELLS COUNTED % (AUTO) 100 %; WHITE BLOOD COUNT 4.6 10^3/uL (4.0-10.5)
[2020-01-19 21:44] LABS: ALBUMIN 2.9 g/dL (3.5-5.0); ALKALINE PHOSPHATASE 79 U/L (38-126); ASPARTATE AMINO TRANSFERASE 34 U/L (17-59); BILIRUBIN,TOTAL 0.5 mg/dL (0.2-1.3); BLOOD UREA NITROGEN 9 mg/dL (7-20); CALCIUM 8.3 mg/dL (8.4-10.2); GLUCOSE 140 mg/dL (75-110); POTASSIUM 3.8 mmol/L (3.6-5.0); TOTAL PROTEIN 6.3 g/dL (6.3-8.2)
[2020-01-19 21:49] LABS: CARBON DIOXIDE 25 mmol/L (22-30); CHLORIDE 110 mmol/L (98-107)
[2020-01-19 21:50] LABS: ANION GAP 4 (5-19)
[2020-01-19 21:57] LABS: APPEARANCE,URINE SLIGHTLY-CLOUDY; BILIRUBIN,URINE NEGATIVE (NEGATIVE); COLOR,URINE YELLOW; GLUCOSE, URINE NEGATIVE (NEGATIVE); KETONES,URINE TRACE mg/dL (NEGATIVE); LEUKOCYTE ESTERASE,URINE MODERATE (NEGATIVE); NITRITE,URINE NEGATIVE (NEGATIVE); PROTEIN,URINE 100 mg/dL (NEGATIVE); URINE SPECIFIC GRAVITY 1.021
[2020-01-19 22:10] LABS: PLATELET COUNT 69 10^3/uL (150-450)
[2020-01-19] MEDS ORDERED: OXYCODONE HCL IR 5 MG TABLET PO ONE (23:39)
--- NOTE | 2020-01-19 23:40 | ER Document Report ---
ED General - General Chief Complaint: Shortness Of Breath Stated Complaint: SHORTNESS OF BREATH, DIARRHEA, COUGH, BODY ACHES Time Seen by Provider: 01/19/20 23:22 Primary Care Provider: STEVEN VILLALOBOS MD [Primary Care Provider] - Follow up as needed Information source: POA - Power of Prize Coordinator Notes: 59-year-old male with history of nephrolithiasis and stent placement, chronic pain on pain management, PTSD presents to the emergency department with shortness of breath. Patient states that he woke up and he was extremely short of breath and then started having a coughing fit. was concerned so they called her primary Dr. Villalobos who recommended they called the 800 numbers for C OVID. Patient states after calling 2 different numbers they recommended that he come in for treatment. Patient states that he has had vomiting, has general myalgias, intermittent dry cough, intermittent chest pain, and had dry heaves prior to interview. No known COVID contacts. No fevers. No other complaints. TRAVEL OUTSIDE OF THE [place] IN LAST 30 DAYS: No - Related Data Allergies/Adverse Reactions: erythromycin base Allergy (Verified 11/29/19 03:01) hydromorphone [From Dilaudid] Adverse Reaction (Verified 11/29/19 03:01) palpations ketorolac [From Toradol] Adverse Reaction (Verified 11/29/19 03:01) Home Medications: Atenolol. Warfarin. Percocet. Gabapentin Past Medical History - Social History Smoking Status: Current Every Day Smoker Family History: Reviewed & Not Pertinent Patient has suicidal ideation: No Patient has homicidal ideation: No - Past Medical History Cardiac Medical History: Reports: Hx DVT, Hx Hypercholesterolemia, Hx Hypertension Neurological Medical History: Reports: Hx Cerebrovascular Accident - TIA Endocrine Medical History: Denies: Hx Diabetes Mellitus Type 2 Renal/ Medical History: Reports: Hx Kidney Stones. Denies: Hx Peritoneal Dialysis GI Medical History: Reports: Hx Cirrhosis, Hx Hepatitis - History of hepatitis C. He has had treatment. Musculoskeletal Medical History: Reports Hx Arthritis Psychiatric Medical History: Reports: Hx Post Traumatic Stress Disorder Infectious Medical History: Reports: Hx Hepatitis - History of hepatitis C. He has had treatment. Past Surgical History: Reports: Hx Abdominal Surgery - hernia, Hx Appendectomy, Hx Cholecystectomy, Hx Herniorrhaphy, Hx Kidney (Renal Surgery) - kidney stones, bilateral ureteral stents on 02/08/2019, right stent removal, Hx Orthopedic Surgery - Has had cervical spine surgery, right Knee Replacement, Hx Vascular Surgery - removal of DVTs in legs, IVC filter placed - Immunizations Immunizations up to date: Yes Hx Diphtheria, Pertussis, Tetanus Vaccination: Yes Review of Systems - Review of Systems Constitutional: See HPI EENT: No symptoms reported Cardiovascular: See HPI Respiratory: See HPI Gastrointestinal: See HPI Genitourinary: See HPI Male Genitourinary: No symptoms reported Musculoskeletal: See HPI Skin: No symptoms reported Hematologic/Lymphatic: No symptoms reported Neurological/Psychological: No symptoms reported Physical Exam - Vital signs Vitals: Temp Resp BP Pulse Ox 98.5 F 19 155/79 H 100 01/19/20 20:48 01/19/20 20:48 01/19/20 20:48 01/19/20 20:48 - Notes Notes: PHYSICAL EXAMINATION: Reviewed vital signs and charting by RN GENERAL: Alert, interacts well. No acute distress. HEAD: Normocephalic, atraumatic. EYES: Pupils equal and round. Extraocular movements intact. ENT: Oral mucosa moist, tongue midline. NECK: Full range of motion. Trachea midline. LUNGS: Clear to auscultation bilaterally, no wheezes, rales, or rhonchi. No respiratory distress. HEART: Regular rate and rhythm. No murmur ABDOMEN: soft, non-tender. No distention. Bowel sounds present EXTREMITIES: Moves all 4 extremities spontaneously. No edema, No cyanosis. PSYCH: Normal affect, normal mood. SKIN: Warm, dry, normal turgor. No rashes or lesions noted. Course - Re-evaluation Re-evalutation: 01/19/20 23:43 Patient is well-appearing in no acute distress. Patient already tested for COVID prior to my interviewing this visit. Patient's vital signs within normal limits, SPO2 100% on room air. Patient does exhibit some of the known symptoms of COVID-19 but patient is overall well-appearing and does not meet admission criteria. Lungs were clear, patient is in no respiratory distress. Patient is on chronic pain management and does complain of myalgias so I am going to give him an additional dose of oxycodone 10 mg p.o. once. Patient has been given education and strict return precautions. He is stable for discharge. - Vital Signs Vital signs: Temp Pulse Resp BP Pulse Ox 98.5 F 21 H 155/79 H 100 01/19/20 20:48 01/19/20 23:00 01/19/20 20:48 01/19/20 23:00 - Laboratory Result Diagrams: 01/19/20 20:50 01/19/20 20:50 Laboratory results interpreted by me: 01/19/20 01/19/20 01/19/20 20:50 20:50 20:50 RBC 3.76 L Hgb 9.4 L Hct 28.6 L MCV 76 L MCH 24.9 L RDW 21.4 H Plt Count 69 L Chloride 110 H Anion Gap 4 L Glucose 140 H Calcium 8.3 L Albumin 2.9 L Urine Protein 100 H Urine Ketones TRACE H Urine Blood LARGE H Urine Urobilinogen 4.0 H Ur Leukocyte Esterase MODERATE H Discharge - Discharge Clinical Impression: Shortness of breath, Generalized pain Condition: Stable Disposition: HOME, SELF-CARE Additional Instructions: You were seen in the emergency department this evening for shortness of breath and coughing. We tested you for COVID-19 and results typically take 3 days. Until then it is important that you self quarantine and perform contact tracing prior to results. You have received an additional dose of pain medication here in the emergency department. Please immediately return to the emergency department if you have worsening shortness of breath, weakness, you pass out, severe chest pain, intractable nausea vomiting, or you have any other concerning symptoms. Referrals: STEVEN VILLALOBOS MD [Primary Care Provider] - Follow up as needed
--- NOTE | 2020-01-19 23:58 | EKG REPORT ---
SEVERITY:- NORMAL ECG - SINUS RHYTHM : Confirmed by: Karin Peralta 19-Jan-2020 23:57:57
[2020-01-20 00:11] VITALS: BP 128/82
== END 2020-01-20 00:20 | disposition home or self-care (01) ==
LOC: ER 20:47
DX: R06.02 Shortness of breath (principal); R05 Cough; R11.10 Vomiting, unspecified; R07.9 Chest pain, unspecified; M79.10 Myalgia, unspecified site; G89.29 Other chronic pain; F17.200 Nicotine dependence, unspecified, uncomplicated; I10 Essential (primary) hypertension; Z79.899 Other long term (current) drug therapy; Z79.891 Long term (current) use of opiate analgesic; Z79.01 Long term (current) use of anticoagulants; Z20.828 Contact with and (suspected) exposure to other viral communicable diseases
CPT/HCPCS: 93005; 99285; 96361; 96374; 36415; 87070; 87880; 85025; 80053; 81001; 87804; 93010; U0003; J2405; J7030; A9270; G0463; 87635; 99211

== ENCOUNTER → 2020-01-19 | Outpatient (CLI) | payer MEDICARE ==
--- NOTE | 2020-01-19 13:16 | ER RDC ASSESSMENT REPORT ---
Intake - In the Last 14 days Have you traveled outside [place]?: No Have you been in close contact with someone CONFIRMED: No Worked in Healthcare?: No - Symptoms Subjective Fever(Mchenry feverish): Yes Chills: Yes Muscule Aches: Yes Runny Nose: No Sore Throat: No Cough (New or worsening chronic cough): Yes Shortness of breath: Yes Nausea or Vomiting: Yes Headache: Yes Abdominal Pain: No Diarrhea(3 or more loose stools in last 24 hours): No - Do you have any of the following Chronic lung disease: Asthma or emphysema or COPD: No Cystic Fibrosis: No Diabetes: No High Blood Pressure: No Cardiovascular Disease: No Chronic Kidney Disease: Yes Chronic Liver Disease: Yes Chronic blood disorder like Sickle Cell Disease: No Weak immune system due to disease or medication: Yes Neurologic condition that limits movement: No Developmental delay - Moderate to Severe: No Recent (within past 2 weeks) or current : No - Objective Temperature: 98.0 F Pulse Rate: 75 Respiratory Rate: 20 Blood Pressure: 156/77 O2 Sat by Pulse Oximetry: 98 Objective: Given above, testing performed: If Testing Performed: Test Specimen Type Sent to General - General Information source: Patient Notes: She presents with upper respiratory symptoms for the past 2 days. Patient complains of fever, chills, body aches. Patient also reports cough with shortness of breath and headache and nausea. Patient with a previous history of hepatitis C, renal stones and DVT. Patient does smoke 1/2 pack/day. - HPI Onset/Duration: Persistent Quality of pain: Achy Associated symptoms: Body/muscle aches, Nonproductive cough, Fever, Nausea, Shortness of breath Exacerbated by: Denies Relieved by: Denies Recently seen / treated by doctor: No - Related Data Allergies/Adverse Reactions: erythromycin base Allergy (Verified 11/29/19 03:01) hydromorphone [From Dilaudid] Adverse Reaction (Verified 11/29/19 03:01) palpations ketorolac [From Toradol] Adverse Reaction (Verified 11/29/19 03:01) Past Medical History - General Information source: Patient - Social History Smoking Status: Current Every Day Smoker Lives with: Spouse/Significant other Family History: Reviewed & Not Pertinent - Past Medical History Cardiac Medical History: Reports: Hx DVT, Hx Hypercholesterolemia, Hx Hypertension Neurological Medical History: Reports: Hx Cerebrovascular Accident - TIA Endocrine Medical History: Denies: Hx Diabetes Mellitus Type 2 Renal/ Medical History: Reports: Hx Kidney Stones. Denies: Hx Peritoneal Dialysis GI Medical History: Reports: Hx Cirrhosis, Hx Hepatitis - History of hepatitis C. He has had treatment. Musculoskeletal Medical History: Reports Hx Arthritis Psychiatric Medical History: Reports: Hx Post Traumatic Stress Disorder Infectious Medical History: Reports: Hx Hepatitis - History of hepatitis C. He has had treatment. Past Surgical History: Reports: Hx Abdominal Surgery - hernia, Hx Appendectomy, Hx Cholecystectomy, Hx Herniorrhaphy, Hx Kidney (Renal Surgery) - kidney stones, bilateral ureteral stents on 02/08/2019, right stent removal, Hx Orthopedic Surgery - Has had cervical spine surgery, right Knee Replacement, Hx Vascular Surgery - removal of DVTs in legs, IVC filter placed Physical Exam - General General appearance: Appears well, Alert In distress: None - HEENT Head: Normocephalic, Atraumatic Eyes: Normal Nasal: Normal Mouth/Lips: Normal Pharynx: Normal. No: Erythema, Exudate, Tonsillar hypertrophy Neck: Normal, Supple. No: Lymphadenopathy - Respiratory Respiratory status: No respiratory distress. No: Labored, Tachypnea Chest status: Pain with cough Breath sounds: Nonproductive cough. No: Rales, Rhonchi, Stridor, Wheezing Chest palpation: Normal - Cardiovascular Rhythm: Regular Heart sounds: S1 appreciated, S2 appreciated - Back Back: Normal - Extremities General upper extremity: Normal inspection, Normal ROM General lower extremity: Normal inspection, Normal ROM - Neurological Neuro grossly intact: Yes Cognition: Normal Warren Coma Scale Eye Opening: Spontaneous Warren Coma Scale Verbal: Oriented Wilner Coma Scale Motor: Obeys Commands Warren Coma Scale Total: 15 - Psychological Associated symptoms: Normal affect, Normal mood - Skin Skin Temperature: Warm Skin Moisture: Dry Skin Color: Normal Diagnostic Results Laboratory Results: The patient was evaluated during the global Covid 19 pandemic, and that diagnosis was suspected/considered upon their initial presentation. Their evaluation, treatment and testing was consistent with current guidelines for patients who present with complaints or symptoms that may be related to Covid 19. Patient presents with upper respiratory symptoms worrisome for possible Covid 19. Patient does not have emergency worrying symptoms such as difficulty breathing, shortness of breath, chest pain, pressure, confusion or cyanosis. Patient appears suitable for discharge as vital signs are stable and patient is nontoxic in appearance. Good return precautions have been discussed with patient, patient verbalized understanding and is agreeable with discharge plan of care at this time. Patient Education/Counseling Counseling/Education: Patient was provided with discharge information including: As a person under investigation for Covid 19, the Counts include 234 beds at the [facility], division of public health advises you to adhere to the following guidance until your test results are reported to you. If your test result is positive, you will receive additional information from your provider and your local health department at that time. Remain at home until you are cleared by the health provider or public health authorities. Keep a log of visitors to your home, notify any visitors to your home of your isolation status. If you plan to move to a new address or leave the county, notify the local health department in your County. Call your doctor or seek care if you have an urgent medical need. Before seeking medical care, call ahead to get instructions from the provider before arriving at the medical office clinic or hospital. Notify them that you are being tested for the virus that causes Covid 19 so that arrangements can be made, as necessary, to prevent transmission to others in the healthcare setting. Next, notify the local health department in your county. If a medical emergency arises and you need to call 911, inform the first responders that you are being tested for the virus that causes Covid 19. Next, notify the local health department in your county. RDC Discharge - Discharge Clinical Impression: covid 19 screening Upper respiratory infection Qualifiers: URI type: unspecified URI Qualified Code(s): J06.9 - Acute upper respiratory infection, unspecified Condition: Stable Disposition: Home; Selfcare
[2020-01-19 13:41] LABS: A TYPE INFLUENZA AG NEGATIVE (NEGATIVE); B INFLUENZA AG NEGATIVE (NEGATIVE)
[2020-01-19 13:44] VITALS: BP 156/77
== END ==
LOC: RDC 12:35
PROVIDERS: ATTEND Nurse Practitioner Family
DX: J06.9 Acute upper respiratory infection, unspecified (principal); R50.9 Fever, unspecified; R05 Cough; R06.02 Shortness of breath; M79.10 Myalgia, unspecified site; R11.0 Nausea; I10 Essential (primary) hypertension; R51 Headache; E78.00 Pure hypercholesterolemia, unspecified; F17.200 Nicotine dependence, unspecified, uncomplicated; Z86.19 Personal history of other infectious and parasitic diseases; Z88.1 Allergy status to other antibiotic agents; Z88.6 Allergy status to analgesic agent; Z88.8 Allergy status to other drugs, medicaments and biological substances; Z86.73 Personal history of transient ischemic attack (TIA), and cerebral infarction without residual deficits
CPT/HCPCS: 87070; 87804; 87880

== ENCOUNTER → 2020-02-24 | Outpatient (CLI) | payer MEDICARE ==
--- NOTE | 2020-02-26 07:39 | RADIOLOGY REPORT (SQ) ---
EXAM DESCRIPTION: MRI RT LOWER JOINT WITHOUT IMAGES COMPLETED DATE/TIME: 02/24/2020 7:46 pm REASON FOR STUDY: M25.561 PAIN IN RIGHT KNEE M25.561 PAIN IN RIGHT KNEE COMPARISON: None. TECHNIQUE: Rightknee images acquired and stored on PACS. Multiplanar images include fat sensitive s equences as T1, water sensitive sequences as FST2 or STIR, cartilage sensitive sequences as FSPD, and gradient echo sequences. Metal artifact reduction scan sequences used. LIMITATIONS: Extensive metal artifact. FINDINGS: JOINT AND BURSAE: No effusion. BONE CORTEX AND MARROW: No alteration of signal to suggest marrow replacement. No worrisome bone lesi ons. No occult fracture. ACL: Cannot assess PCL: Cannot assess MCL: Intact. No periligamentous edema or fluid. LCL: Intact. No periligamentous edema or fluid. MEDIAL MENISCUS: Knee replacement LATERAL MENISCUS: Knee replacement MEDIAL COMPARTMENT: Knee replacement LATERAL COMPARTMENT: Knee replacement PATELLA: Knee replacement EXTENSOR MECHANISM: Intact. Quadriceps and patella tendons normal. SOFT TISSUES: Adjacent muscles and subcutaneous tissues normal. Normal flow void in popliteal artery and vein. OTHER: No other significant finding. IMPRESSION: Extensive metal artifact. There is no evidence for occult fracture or marrow edema. No significant effusion. Extensor mechanism intact. TECHNICAL DOCUMENTATION: JOB ID: [id number] [email or web address]- All Rights Reserved Reading location - IP/workstation name: [email or web address]
== END ==
LOC: RAD 18:32
PROVIDERS: ATTEND Family Medicine
DX: M25.561 Pain in right knee (principal)

== ENCOUNTER 2020-02-28 12:58 | Emergency (ER) | payer MEDICARE ==
[2020-02-28 13:23] LABS: ABSOLUTE EOSINOPHILS # (AUTO) 0.1 10^3/uL (0.0-0.6); ABSOLUTE LYMPHOCYTES (AUTO) 1.4 10^3/uL (0.5-4.7); ABSOLUTE MONOCYTES (AUTO) 0.9 10^3/uL (0.1-1.4); ABSOLUTE NEUT (AUTO) 4.7 10^3/uL (1.7-8.2); BASOPHILS % (AUTO) 0.2 % (0-2); EOSINOPHILS % (AUTO) 0.8 % (0-6); HEMATOCRIT 31.6 % (37.9-51.0); HEMOGLOBIN 10.3 g/dL (13.5-17.0); LYMPHOCYTES % (AUTO) 19.8 % (13-45); MEAN CORPUSCULAR HGB CONC 32.5 g/dL (32.0-36.0); MEAN CORPUSCULAR VOLUME 77 fl (80-97); RED BLOOD COUNT 4.12 10^6/uL (4.35-5.55); RED CELL DISTRIBUTION WIDTH 21.6 % (11.5-14.0); SEGMENTED NEUTROPHILS % (AUTO) 66.2 % (42-78); TOTAL CELLS COUNTED % (AUTO) 100 %; WHITE BLOOD COUNT 7.2 10^3/uL (4.0-10.5)
--- NOTE | 2020-02-28 13:33 | ER Document Report ---
ED Psych Disorder / Suicide - General Chief Complaint: Psych Problem Stated Complaint: IVC Time Seen by Provider: 02/28/20 13:09 Primary Care Provider: STEVEN VILLALOBOS MD [Primary Care Provider] - Follow up as needed Notes: Patient is a 59-year-old male who presents to the emergency department after an attempted hanging. Patient was feeling suicidal. Officers found him before he was able to completely go through with hanging himself. Patient states that he does have neck pain. He also states that he has pain to his right side of his face. He was recently seen at [facility] and was released. Patient states "I just do not feel like living anymore." Patient has a history of chronic pain. States that he takes atenolol 100 mg daily, but has not actually been taking it. He also takes oxycodone 10 mg twice a day for chronic pain. He sees chronic pain management. 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 TRAVEL OUTSIDE OF THE [place] IN LAST 30 DAYS: No - Related Data Allergies/Adverse Reactions: erythromycin base Allergy (Verified 02/28/20 13:16) hydromorphone [From Dilaudid] Adverse Reaction (Verified 02/28/20 13:16) palpations ketorolac [From Toradol] Adverse Reaction (Verified 02/28/20 13:16) Past Medical History - Social History Smoking Status: Unknown if Ever Smoked Chew tobacco use (# tins/day): No Frequency of alcohol use: None Drug Abuse: None Family History: Reviewed & Not Pertinent Patient has homicidal ideation: No - Past Medical History Cardiac Medical History: Reports: Hx DVT, Hx Hypercholesterolemia, Hx Hypertension Neurological Medical History: Reports: Hx Cerebrovascular Accident - TIA Endocrine Medical History: Denies: Hx Diabetes Mellitus Type 2 Renal/ Medical History: Reports: Hx Kidney Stones. Denies: Hx Peritoneal Dialysis GI Medical History: Reports: Hx Cirrhosis, Hx Hepatitis - History of hepatitis C. He has had treatment. Musculoskeletal Medical History: Reports Hx Arthritis Psychiatric Medical History: Reports: Hx Post Traumatic Stress Disorder Infectious Medical History: Reports: Hx Hepatitis - History of hepatitis C. He has had treatment. Past Surgical History: Reports: Hx Abdominal Surgery - hernia, Hx Appendectomy, Hx Cholecystectomy, Hx Herniorrhaphy, Hx Kidney (Renal Surgery) - kidney stones, bilateral ureteral stents on 02/08/2019, right stent removal, Hx Orthopedic Surgery - Has had cervical spine surgery, right Knee Replacement, Hx Vascular Surgery - removal of DVTs in legs, IVC filter placed - Immunizations Immunizations up to date: Yes Hx Diphtheria, Pertussis, Tetanus Vaccination: Yes Review of Systems - Review of Systems Notes: REVIEW OF SYSTEMS: CONSTITUTIONAL : Denies recent illness. Denies recent unintentional weight loss. Denies fever, chills, or sweats. EENT: Denies eye, ear, throat, or mouth pain, discharge, or symptoms. Denies nasal or sinus congestion. CARDIOVASCULAR: Denies chest pain. RESPIRATORY: Denies shortness of breath, cough, congestion, difficulty br eathing, or wheezing. GASTROINTESTINAL: Denies nausea, vomiting, and diarrhea. Denies abdominal pain. Denies constipation. GENITOURINARY: Denies difficulty urinating, burning, blood in urine, urgency or frequency. MUSCULOSKELETAL: Denies neck and back pain. Denies joint pain or swelling. SKIN: Denies rash, itchiness, or lesions HEMATOLOGIC : Denies easy bruising or bleeding. LYMPHATIC: Denies swollen, painful, enlarged glands. NEUROLOGICAL: Denies no numbness or tingling denies weakness. Denies headache. Denies altered mental status. Denies alteration in speech. PSYCHIATRIC: See HPI. All other systems reviewed and negative. Physical Exam - Vital signs Vitals: Temp 98.6 F 02/28/20 13:04 - Notes Notes: PHYSICAL EXAMINATION: GENERAL: Appears well, healthy, well-nourished, no acute distress. HEAD: Normocephalic, atraumatic. EYES: PERRL, conjunctiva normal, all extraocular movements intact, sclera nonicteric ENT: Moist mucous membranes. NECK: Supple, no noticeable swelling, redness, rash. Normal range of motion. Point tenderness to spinous processes in cervical spine. LUNGS: Equal breath sounds bilaterally and clear to auscultation. No wheezes rales or rhonchi. CARDIOVASCULAR: S1-S2, regular rate, regular rhythm. Radial pulses 2+, normal. ABDOMEN: Normoactive bowel sounds. Soft, nontender, no guarding, no rebound tenderness, and no masses palpated. EXTREMITIES: Normal strength and range of motion, no pitting or edema. No cyanosis. NEUROLOGICAL: Moves all extremities upon command. Strength 5/5 in all extremities. PSYCH: Normal mood, normal affect. SKIN: Warm, dry. No rash, lesions, ulcerations noted. Normal skin turgor. Course - Re-evaluation Re-evalutation: 02/28/20 14:19 Hematology shows anemia, but this is the patient's baseline. Platelet count is low, but this is also his normal. Chemistries are unremarkable. LFTs are normal. Salicylates, acetaminophen, and alcohol levels are negative. Awaiting urinalysis and urine drug screen. Patient agreed to go to CT of the head and cervical spine. Awaiting results. 02/28/20 17:07 CT of the head and neck are unremarkable than degenerative changes in his neck, which is chronic. Dr. Jim went to assess the patient and the patient became irate and started yelling at her. Patient will be given Haldol, Benadryl, and Cogentin to help him calm down. 02/29/20 01:19 Patient had rested comfortably and was taken out of his four-point restraints earlier in the evening. See nursing assessment and notes. I was told by the primary nurse that the patient went to the bathroom and stated that he was going to provide a urine sample, but then ended up throwing the cup in the toilet. Patient's vital signs reviewed and they are normal. Report given to ALPHONSE Benitez. He will follow-up with the patient's urinalysis and urine drug screen. - Vital Signs Vital signs: Temp Pulse Resp BP Pulse Ox 98.6 F 110 H 20 143/93 H 100 02/28/20 13:15 02/28/20 13:15 02/28/20 13:15 02/28/20 13:15 02/28/20 13:15 - Laboratory Result Diagrams: 02/28/20 13:07 02/28/20 13:07 Laboratory results interpreted by me: 02/28/20 02/28/20 13:07 13:07 RBC 4.12 L Hgb 10.3 L Hct 31.6 L MCV 77 L MCH 25.0 L RDW 21.6 H Plt Count 76 L Chloride 114 H Albumin 3.3 L Salicylates < 1.0 L Acetaminophen < 10 L - EKG Interpretation by Me Additional EKG results interpreted by me: 02/28/20 13:35 Sinus tachycardia. Rate 108. NC 104; QRS 88; QT 356; QTc 477. No ST elevations or depressions noted PVC noted on EKG. Discharge - Discharge Clinical Impression: Suicide attempt, Aggressive behavior Condition: Stable Disposition: PSYCH HOSP/UNIT Referrals: STEVEN VILLALOBOS MD [Primary Care Provider] - Follow up as needed
[2020-02-28 13:39] LABS: ALBUMIN 3.3 g/dL (3.5-5.0); ALKALINE PHOSPHATASE 87 U/L (38-126); ANION GAP 6 (5-19); ASPARTATE AMINO TRANSFERASE 44 U/L (17-59); BILIRUBIN,DIRECT 0.1 mg/dL (0.0-0.4); BILIRUBIN,TOTAL 1.3 mg/dL (0.2-1.3); BLOOD UREA NITROGEN 16 mg/dL (7-20); CALCIUM 8.9 mg/dL (8.4-10.2); CARBON DIOXIDE 23 mmol/L (22-30); CHLORIDE 114 mmol/L (98-107); GLUCOSE 107 mg/dL (75-110); POTASSIUM 3.8 mmol/L (3.6-5.0); TOTAL PROTEIN 6.9 g/dL (6.3-8.2)
[2020-02-28 13:40] LABS: ACETAMINOPHEN < 10 ug/mL (10-30); ALCOHOL < 10 mg/dL (NONE DETECTED)
[2020-02-28 13:41] LABS: SALICYLATE < 1.0 mg/dL (2.0-20.0)
[2020-02-28 13:44] LABS: PLATELET COUNT 76 10^3/uL (150-450)
--- NOTE | 2020-02-28 14:43 | RADIOLOGY REPORT (SQ) ---
EXAM DESCRIPTION: CT CERVICAL SPINE WITHOUT IMAGES COMPLETED DATE/TIME: 02/28/2020 2:29 pm REASON FOR STUDY: neck pain; attempted hanging COMPARISON: 04/14/2017. TECHNIQUE: Axial images acquired through the cervical spine without intravenous contrast. Images re viewed with lung, soft tissue and bone windows. Reconstructed coronal and sagittal MPR images review ed. Images stored on PACS. All CT scanners at this facility use dose modulation, iterative reconstruction, and/or weight based d osing when appropriate to reduce radiation dose to as low as reasonably achievable (ALARA). [facility]: Dose Right [facility]: CareDose [facility]: Dose Right [facility]: Teradose 4D [facility]: Accurence RADIATION DOSE: CT Rad equipment meets quality standard of care and radiation dose reduction techniq ues were employed. CTDIvol: 22.7 mGy. DLP: 935 mGy-cm. mGy. LIMITATIONS: None. FINDINGS: ALIGNMENT: Anatomic. MINERALIZATION: Normal. VERTEBRAL BODIES: No fractures or dislocation. DISCS: Mild disc space narrowing with small osteophytes. FACETS, LATERAL MASSES, POSTERIOR ELEMENTS: Facet arthropathy. No fractures. No dislocation. No ac sedrick findings. HARDWARE: None in the spine. VISUALIZED RIBS: No fractures. LUNG APICES AND SOFT TISSUES: No significant or acute findings. OTHER: No other significant finding. IMPRESSION: DEGENERATIVE CHANGES. NO ACUTE FINDINGS IN THE CERVICAL SPINE. TECHNICAL DOCUMENTATION: JOB ID: [id number] Quality ID # [id number]: Final reports with documentation of one or more dose reduction techniques (e.g., Au tomated exposure control, adjustment of the mA and/or kV according to patient size, use of iterative reconstruction technique) 2010 [employer]- All Rights Reserved Reading location - IP/workstation name: [email or web address]
--- NOTE | 2020-02-28 14:45 | RADIOLOGY REPORT (SQ) ---
EXAM DESCRIPTION: CT HEAD WITHOUT IMAGES COMPLETED DATE/TIME: 02/28/2020 2:29 pm REASON FOR STUDY: AMS; SI COMPARISON: 09/27/2019. TECHNIQUE: Axial images acquired through the brain without intravenous contrast. Images reviewed wi th bone, brain and subdural windows. Additional sagittal and coronal reconstructions were generated. Images stored on PACS. All CT scanners at this facility use dose modulation, iterative reconstruction, and/or weight based d osing when appropriate to reduce radiation dose to as low as reasonably achievable (ALARA). [facility]: Dose Right [facility]: CareDose [facility]: Dose Right [facility]: Teradose 4D [facility]: Aptible RADIATION DOSE: CT Rad equipment meets quality standard of care and radiation dose reduction techniq ues were employed. CTDIvol: 53.2 mGy. DLP: 1017 mGy-cm. mGy. LIMITATIONS: None. FINDINGS: VENTRICLES: Prominent. CEREBRUM: No masses. No hemorrhage. No midline shift. Areas of low density in the white matter mos t likely due to chronic micro-vascular ischemic change. No evidence for acute infarction. CEREBELLUM: No masses. No hemorrhage. No alteration of density. No evidence for acute infarction. EXTRAAXIAL SPACES: Mild age-related involutional change. No fluid collections. No masses. ORBITS AND GLOBE: No intra- or extraconal masses. Normal contour of globe without masses. CALVARIUM: No fracture. PARANASAL SINUSES: No fluid or mucosal thickening. SOFT TISSUES: No mass or hematoma. OTHER: No other significant finding. IMPRESSION: MILD CHRONIC CHANGES OF ATROPHY AND MICROVASCULAR ISCHEMIA. NO ACUTE PROCESS. EVIDENCE OF ACUTE STROKE: NO. TECHNICAL DOCUMENTATION: JOB ID: [id number] Quality ID # [id number]: Final reports with documentation of one or more dose reduction techniques (e.g., Au tomated exposure control, adjustment of the mA and/or kV according to patient size, use of iterative reconstruction technique) 2010 [employer]- All Rights Reserved Reading location - IP/workstation name: [email or web address]
[2020-02-28] MEDS ORDERED: OXYCODONE HCL SR 10 MG TABLET PO ONE (15:48)
[2020-02-28] MEDS ORDERED: HALOPERIDOL LACTATE INJ 5 MG/1 ML VIAL IM ONE (17:03)
[2020-02-28] MEDS ORDERED: DIPHENHYDRAMINE HCL 50 MG/ML VIAL IM ONE (17:04)
[2020-02-28] MEDS ORDERED: BENZTROPINE MESYLATE INJ 2 MG/2 ML AMPULE IM ONE (17:04)
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
--- NOTE | 2020-02-28 19:38 | EKG REPORT ---
SEVERITY:- BORDERLINE ECG - SINUS TACHYCARDIA VENTRICULAR PREMATURE COMPLEX BORDERLINE PROLONGED QT INTERVAL : Confirmed by: Karin Peralta 28-Feb-2020 19:36:58
[2020-02-29 05:34] LABS: APPEARANCE,URINE CLOUDY; BILIRUBIN,URINE NEGATIVE (NEGATIVE); COLOR,URINE AMBER; GLUCOSE, URINE NEGATIVE (NEGATIVE); KETONES,URINE NEGATIVE (NEGATIVE); LEUKOCYTE ESTERASE,URINE MODERATE (NEGATIVE); NITRITE,URINE POSITIVE (NEGATIVE); PROTEIN,URINE 100 mg/dL (NEGATIVE); URINE SPECIFIC GRAVITY 1.019
[2020-02-29 05:39] LABS: URINE AMPHETAMINES SCREEN NEGATIVE; URINE BENZODIAZEPINES SCREEN NEGATIVE; URINE COCAINE SCREEN NEGATIVE; URINE MARIJUANA (THC) SCREEN NEGATIVE; URINE METHADONE SCREEN NEGATIVE; URINE PHENCYCLIDINE SCREEN NEGATIVE
[2020-02-29 05:41] LABS: URINE BARBITURATES SCREEN UNCONFIRMED POSITIVE
[2020-02-29] MEDS ORDERED: SULFAMETHOXAZOLE/TRIMETHOPRIM 800-160 MG TABLET PO ONE (08:14)
[2020-02-29] MEDS ORDERED: LIDOCAINE 1% INJ (10 MG/ML) 10 ML MDV INJ ONE (08:14)
[2020-02-29] MEDS ORDERED: CEFTRIAXONE INJ 1000 MG VIAL IM ONE (08:14)
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
[2020-02-29] MEDS: GABAPENTIN 300 MG CAPSULE PO SCH ×2 (14:19→18:31)
[2020-02-29] MEDS: OXYCODONE HCL IR 5 MG TABLET PO PRN ×2 (14:19→22:54)
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
[2020-02-29] MEDS: SULFAMETHOXAZOLE/TRIMETHOPRIM 800-160 MG TABLET PO SCH (20:43)
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
[2020-03-01] MEDS: SULFAMETHOXAZOLE/TRIMETHOPRIM 800-160 MG TABLET PO SCH ×2 (09:01→17:26)
[2020-03-01] MEDS: GABAPENTIN 300 MG CAPSULE PO SCH ×3 (09:03→17:26)
[2020-03-01] MEDS: OXYCODONE HCL IR 5 MG TABLET PO PRN ×2 (09:03→17:26)
--- NOTE | 2020-03-01 10:17 | RADIOLOGY REPORT (SQ) ---
EXAM DESCRIPTION: CERV SP 4 OR 5 VIEWS IMAGES COMPLETED DATE/TIME: 03/01/2020 9:17 am REASON FOR STUDY: neck pain COMPARISON: 05/01/2019 NUMBER OF VIEWS: Five views including obliques. TECHNIQUE: AP, lateral, obliques and odontoid radiographic images acquired of the cervical spine. LIMITATIONS: None. FINDINGS: MINERALIZATION: Normal. ALIGNMENT: Normal. VERTEBRAE: Maintained height. No fracture or worrisome bone lesion. DISCS: Multilevel disc space narrowing with osteophytes. POSTERIOR ELEMENTS: Pedicles and facets are intact. No posterior arch defects. Facet arthropathy is present. FORAMINA: Narrowed at the levels of maximal disc and facet disease. HARDWARE: None in the spine. PARASPINAL SOFT TISSUES: Normal. OTHER: No other significant finding. IMPRESSION: SPONDYLOSIS WITHOUT BONE LESION OR FRACTURE. TECHNICAL DOCUMENTATION: JOB ID: [id number] 2010 [employer] All Rights Reserved Reading location - IP/workstation name: [email or web address]
[2020-03-01] MEDS: DIVALPROEX SODIUM 250 MG TAB.SR.24H PO SCH (17:25)
[2020-03-01] MEDS: OLANZAPINE 5 MG TABLET PO SCH (17:26)
[2020-03-01] MEDS: BENZTROPINE MESYLATE 1 MG TABLET PO SCH (17:26)
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
[2020-03-02] MEDS: OLANZAPINE 5 MG TABLET PO SCH ×2 (10:12→19:05)
[2020-03-02] MEDS: GABAPENTIN 300 MG CAPSULE PO SCH ×3 (10:12→19:04)
[2020-03-02] MEDS: SULFAMETHOXAZOLE/TRIMETHOPRIM 800-160 MG TABLET PO SCH ×2 (10:12→19:04)
[2020-03-02] MEDS: BENZTROPINE MESYLATE 1 MG TABLET PO SCH (10:12)
[2020-03-02] MEDS: DIVALPROEX SODIUM 250 MG TAB.SR.24H PO SCH ×2 (10:15→19:04)
[2020-03-02] MEDS: OXYCODONE HCL IR 5 MG TABLET PO PRN ×2 (10:26→22:12)
--- NOTE | 2020-03-02 15:45 | ER Document Report ---
Doctor's Note Notes: 03/02/20 15:45 Patient sleeping, will continue to monitor. 03/02/20 18:10 PHYSICAL EXAMINATION: GENERAL: Well-appearing and in no acute distress. HEAD: Atraumatic, normocephalic. EYES: sclera anicteric, conjunctiva are normal. ENT: nares patent. Moist mucous membranes. NECK: Normal range of motion, supple without lymphadenopathy LUNGS: CTAB and equal. No wheezes rales or rhonchi. HEART: Regular rate and rhythm without murmurs EXTREMITIES: Normal range of motion BACK: No CVA tenderness NEUROLOGICAL: Cranial nerves grossly intact. Normal speech. PSYCH: Normal mood, normal affect. SKIN: Warm, Dry, normal turgor, no rashes or lesions noted Patient pleasant in room. Patient attempting to apologize for rude behavior to other staff members. Patient medically clear for transfer discharge pending mental health disposition.
[2020-03-03] MEDS: DIVALPROEX SODIUM 250 MG TAB.SR.24H PO SCH (10:04)
[2020-03-03] MEDS: SULFAMETHOXAZOLE/TRIMETHOPRIM 800-160 MG TABLET PO SCH ×2 (10:05→18:18)
[2020-03-03] MEDS: OLANZAPINE 5 MG TABLET PO SCH ×2 (10:05→18:18)
[2020-03-03] MEDS: BENZTROPINE MESYLATE 1 MG TABLET PO SCH (10:05)
[2020-03-03] MEDS: GABAPENTIN 300 MG CAPSULE PO SCH ×3 (10:05→18:18)
--- NOTE | 2020-03-03 12:04 | ER Document Report ---
Doctor's Note Notes: 03/03/20 12:03 Constitutional: Nontoxic appearance, no acute distress Eyes: Nonicteric, extraocular movements intact, sclera clear Cardiovascular: No JVD Respiratory: Nonlabored breathing, no use of accessory muscles, no tachypnea Gastrointestinal: Abdomen not distended Muculoskeletal: Moves all extremities well, normal gait Skin: Normal color Neuro: Awake alert oriented, normal speech Psych: Normal mood and affect We will recheck a urinalysis at this time as well as a Depakote level as mental health team consider disposition today.
[2020-03-03 13:24] LABS: APPEARANCE,URINE CLEAR; BILIRUBIN,URINE NEGATIVE (NEGATIVE); COLOR,URINE YELLOW; GLUCOSE, URINE NEGATIVE (NEGATIVE); KETONES,URINE NEGATIVE (NEGATIVE); LEUKOCYTE ESTERASE,URINE MODERATE (NEGATIVE); NITRITE,URINE NEGATIVE (NEGATIVE); PROTEIN,URINE NEGATIVE (NEGATIVE); URINE SPECIFIC GRAVITY 1.006; UROBILINOGEN,URINE NEGATIVE mg/dL (<2.0)
[2020-03-03] MEDS: OXYCODONE HCL IR 5 MG TABLET PO PRN (13:32)
[2020-03-03] MEDS ORDERED: DIVALPROEX SODIUM 250 MG TAB.SR.24H PO ONE (14:09)
--- NOTE | 2020-03-03 16:48 | ER Document Report ---
Doctor's Note Notes: 03/01/20 19:00 Attempted to speak with Patient regarding the circumstances of his admission. Patient was noted to be sitting on the edge of his bed, looking at the floor and refusing to cooperate in the evaluation. He continued to say he doesn't recall what happened, then engaged in a tirade of a name calling, cussing, and other argumentative language aimed at this practitioner and security. Patient was not able to be verbally de-escalated and would not allow anyone to talk but him (he was screaming). Patient made an a physical attempt to move towards security but the nurse and this practitioner were able to step in between the Patient and security.
[2020-03-03] MEDS ORDERED: DIVALPROEX SODIUM 500 MG TAB.SR.24H PO SCH (18:00)
--- NOTE | 2020-03-03 19:05 | PSYCHOLOGICAL NOTE ---
Psych Note - Psych Note Date seen by psych provider: 03/03/20 Time seen by psych provider: 12:79 - [phone] re evaluation with patient. [id number] [phone] Spoke to son on phone and allowed patient to speak with him. Psych Note: Presenting Problem: Patient is a 59 year old male who presented to the [facility] ED 02/28/2020 via [facility], petitioned for IVC by [employer] for attempting to hang self and wielding a knife at [facility]. While in the Emergency Department he was uncooperative, verbally and physically aggressive and required IM medication for stabilization. He was subsequently put on FULL IVC. On 03/01/2020 scheduled medications of Depakote ER 250MG BID, Zyprexa 5MG BID and Cogentin 1MG QD were started. Today 03/03/2004 Depakote Level was 24.0 L. Today patient stated "I'm okay besides my hurt neck and legs." He denied current SI and commented "the pills are helping, I'm sleeping and haven't done that in a long time, I usually have funky dreams here and there." He denied following up with outpatient providers because "nobody would see me or tell me how to get help." He admitted to seeing therapist Anupama and "I don't want to lose my spot in counseling." He mentioned how "the other night I think my put something in my drink because I don't drink and I was not acting myself." Patient apologized for the way he acted initially and said "that's not me, all that name calling and causing problems." Patient was alert and oriented to self, person, place, time and situation. Mood was more euthymic with congruent affect. He denied current SI/HI, came in for SI where he reportedly attempted to hang self and threatened to cut wrist with knife, and he has a history of SI. Patient did not appear to be responding to internal stimuli as evidenced by fair eye contact and answering questions appropriately when addressed. Thought processes were linear. Conversational speech was within normal limits for rate, tone and prosody. Intellectual abilities are estimated to be average. Insight, judgment and impulse control were poor but improving (Scheduled medication just started 03/01/2020, and Depakote level not therapeutic as of today at 24.0L). Allowed patient to speak with his son Rodolfo ([phone]) when he called at 1149 to check in on patient. Patient had an appropriate phone conversation with him. Allowed patient to call his when he was informed of acceptance to [facility] for tomorrow (03/04/2020) morning. Clinical Presentation: Suicidal Ideation with reported attempt at hanging and had a knife Diagnosis: PTSD by History per previous ED visits and per son Medication recommendations: Increase Depakote ER to 500MG twice a day for mood stabilization Impression/Plan: Recommendation to maintain FULL IVC. Patient presented on IVC with suicidal ideation and gestures. While in the ED displayed mood lability with his initial day being agitated/irritable, transitioned into depressed and finally more euthymic. Scheduled medications were started 03/01/2020. Today's Depakote Level was 24.0L. Held on to patient to allow for therapeutic level of Depakote and since doing so sent referrals out again. [facility] patient for tomorrow (03/04/2020) morning after 0900. Will move forward with that placement. Consulted with Dr. Jim regarding the management and care of patient. ED Physician in agreement with recommendations. Medication recommendations made by the psychiatric medication provider Dr. Lupe REES., includes: Increase Depakote ER to 500MG twice a day for mood stabilization (it was at 250 BID, Depakote Level today was 24.0 L)
[2020-03-04] MEDS ORDERED: HYDROXYZINE PAMOATE 50 MG CAPSULE PO ONE (01:08)
--- NOTE | 2020-03-04 08:47 | ER Document Report ---
Doctor's Note Notes: 03/04/20 08:45 Patient with PTSD and suicidal ideations, who has been evaluated by the mental health team and medical staff who currently is being discharged today to go to another facility for further management of his conditions of suicidal and . Chart reviewed and patient is medically cleared to be transferred to another facility. Vital signs stable, resting comfortably in room. Patient is ready for discharge when transportation is appropriately available.
[2020-03-04] MEDS ORDERED: OXYCODONE HCL IR 5 MG TABLET PO ONE (08:57)
[2020-03-04 09:06] VITALS: BP 166/91
== END 2020-03-04 09:00 ==
LOC: ER 12:58
DX: T14.91XA Suicide attempt, initial encounter (principal); X83.8XXA Intentional self-harm by other specified means, initial encounter; Y92.009 Unspecified place in unspecified non-institutional (private) residence as the place of occurrence of the external cause; F43.10 Post-traumatic stress disorder, unspecified; M47.812 Spondylosis without myelopathy or radiculopathy, cervical region; I10 Essential (primary) hypertension; T44.7X6A Underdosing of beta-adrenoreceptor antagonists, initial encounter; Z91.14 Patient's other noncompliance with medication regimen; M54.2 Cervicalgia; R51 Headache; R30.0 Dysuria; M79.89 Other specified soft tissue disorders; R00.0 Tachycardia, unspecified; D64.9 Anemia, unspecified; D69.6 Thrombocytopenia, unspecified; G89.29 Other chronic pain; Z79.891 Long term (current) use of opiate analgesic; Z79.899 Other long term (current) drug therapy; Z78.1 Physical restraint status; Z88.1 Allergy status to other antibiotic agents
CPT/HCPCS: 93005; 99285; 96372; 36415; 87086; 80307 ×4; 85025; 87088; 80053; 81001; 80164; 87186; 70450; 72125; 93010; A9270 ×25; J0515; J1200; J1630; J0696; J3490

== ENCOUNTER 2020-04-05 12:49 | Emergency (ER) | payer MEDICARE ==
[2020-04-05 13:17] LABS: ABSOLUTE EOSINOPHILS # (AUTO) 0.1 10^3/uL (0.0-0.6); ABSOLUTE LYMPHOCYTES (AUTO) 1.7 10^3/uL (0.5-4.7); ABSOLUTE MONOCYTES (AUTO) 0.6 10^3/uL (0.1-1.4); ABSOLUTE NEUT (AUTO) 4.6 10^3/uL (1.7-8.2); BASOPHILS % (AUTO) 0.4 % (0-2); EOSINOPHILS % (AUTO) 1.9 % (0-6); HEMATOCRIT 35.4 % (37.9-51.0); HEMOGLOBIN 11.5 g/dL (13.5-17.0); LYMPHOCYTES % (AUTO) 24.1 % (13-45); MEAN CORPUSCULAR HEMOGLOBIN 27.1 pg (27.0-33.4); MEAN CORPUSCULAR HGB CONC 32.6 g/dL (32.0-36.0); MEAN CORPUSCULAR VOLUME 83 fl (80-97); MONOCYTES % (AUTO) 8.3 % (3-13); RED BLOOD COUNT 4.26 10^6/uL (4.35-5.55); RED CELL DISTRIBUTION WIDTH 22.4 % (11.5-14.0); SEGMENTED NEUTROPHILS % (AUTO) 65.3 % (42-78); TOTAL CELLS COUNTED % (AUTO) 100 %; WHITE BLOOD COUNT 7.1 10^3/uL (4.0-10.5)
[2020-04-05 13:20] LABS: APPEARANCE,URINE CLOUDY; BILIRUBIN,URINE NEGATIVE (NEGATIVE); COLOR,URINE YELLOW; GLUCOSE, URINE NEGATIVE (NEGATIVE); KETONES,URINE NEGATIVE (NEGATIVE); LEUKOCYTE ESTERASE,URINE LARGE (NEGATIVE); NITRITE,URINE POSITIVE (NEGATIVE); PROTEIN,URINE 100 mg/dL (NEGATIVE)
[2020-04-05 13:34] LABS: URINE AMPHETAMINES SCREEN NEGATIVE; URINE BENZODIAZEPINES SCREEN NEGATIVE; URINE COCAINE SCREEN NEGATIVE; URINE METHADONE SCREEN NEGATIVE; URINE PHENCYCLIDINE SCREEN NEGATIVE
[2020-04-05 13:37] LABS: URINE BARBITURATES SCREEN UNCONFIRMED POSITIVE; URINE MARIJUANA (THC) SCREEN UNCONFIRMED POSITIVE
[2020-04-05 13:38] LABS: ALBUMIN 3.6 g/dL (3.5-5.0); ALKALINE PHOSPHATASE 92 U/L (38-126); ASPARTATE AMINO TRANSFERASE 46 U/L (17-59); BILIRUBIN,DIRECT 0.1 mg/dL (0.0-0.4); BILIRUBIN,TOTAL 1.2 mg/dL (0.2-1.3); BLOOD UREA NITROGEN 22 mg/dL (7-20); CALCIUM 9.1 mg/dL (8.4-10.2); CARBON DIOXIDE 25 mmol/L (22-30); GLUCOSE 88 mg/dL (75-110); POTASSIUM 3.9 mmol/L (3.6-5.0); TOTAL PROTEIN 7.5 g/dL (6.3-8.2)
[2020-04-05 13:41] LABS: ACETAMINOPHEN < 10 ug/mL (10-30); ALCOHOL < 10 mg/dL (NONE DETECTED); PLATELET COUNT 71 10^3/uL (150-450); SALICYLATE < 1.0 mg/dL (2.0-20.0)
[2020-04-05 13:44] LABS: ANION GAP 4 (5-19); CHLORIDE 111 mmol/L (98-107)
--- NOTE | 2020-04-05 13:46 | ER Document Report ---
ED General - General Chief Complaint: Suicidal Ideation Stated Complaint: SUICIDAL IDEATION Time Seen by Provider: 04/05/20 12:56 Primary Care Provider: STEVEN VILLALOBOS MD [Primary Care Provider] - Follow up as needed Notes: 59-year-old male presents with suicidal ideation. Was tired using his 's abdomen. History of severe PTSD depression multiple suicide attempts well-known to the ED. He is voluntary and wants to be here. Also complains of dark urine foul-smelling and a recent UTI. No back pain no vomiting. TRAVEL OUTSIDE OF THE [place] IN LAST 30 DAYS: No - Related Data Allergies/Adverse Reactions: erythromycin base Allergy (Verified 02/28/20 13:16) hydromorphone [From Dilaudid] Adverse Reaction (Verified 02/28/20 13:16) palpations ketorolac [From Toradol] Adverse Reaction (Verified 02/28/20 13:16) Past Medical History - General Information source: Patient - Social History Smoking Status: Unknown if Ever Smoked Family History: Reviewed & Not Pertinent Patient has homicidal ideation: No - Past Medical History Cardiac Medical History: Reports: Hx DVT, Hx Hypercholesterolemia, Hx Hypertension Neurological Medical History: Reports: Hx Cerebrovascular Accident - TIA Endocrine Medical History: Denies: Hx Diabetes Mellitus Type 2 Renal/ Medical History: Reports: Hx Kidney Stones. Denies: Hx Peritoneal Dialysis GI Medical History: Reports: Hx Cirrhosis, Hx Hepatitis - History of hepatitis C. He has had treatment. Musculoskeletal Medical History: Reports Hx Arthritis Psychiatric Medical History: Reports: Hx Post Traumatic Stress Disorder Infectious Medical History: Reports: Hx Hepatitis - History of hepatitis C. He has had treatment. Past Surgical History: Reports: Hx Abdominal Surgery - hernia, Hx Appendectomy, Hx Cholecystectomy, Hx Herniorrhaphy, Hx Kidney (Renal Surgery) - kidney stones, bilateral ureteral stents on 02/08/2019, right stent removal, Hx Orthopedic Surgery - Has had cervical spine surgery, right Knee Replacement, Hx Vascular Surgery - removal of DVTs in legs, IVC filter placed - Immunizations Immunizations up to date: Yes Hx Diphtheria, Pertussis, Tetanus Vaccination: Yes Review of Systems - Review of Systems Notes: REVIEW OF SYSTEMS GEN: Denies fever, chills, weight loss ENT: Denies sore throat, nasal discharge, ear pain EYES: Denies blurry vision, eye pain, discharge CV: Denies chest pain, palpitations, edema RESP: Denies cough, shortness of breath, wheezing GI: Denies abdominal pain, nausea, vomiting, diarrhea MSK: Denies joint pain/swelling, edema, SKIN: Denies rash, skin lesions LYMPH: Denies swollen glands/lymph nodes NEURO: Denies headache, focal weakness or numbness, dizziness PSYCH: Pression n PHYSICAL EXAMINATION General: No acute distress, well-nourished Head: Atraumatic, normocephalic ENT: Mouth normal, oropharynx moist, no exudates or tonsillar enlargement Eyes: Conjunctiva normal, pupils equal, lids normal Neck: No JVD, supple, no guarding CVS: Normal rate, regular rhythm, no murmurs Resp: No resp distress, equal and normal breath sounds bilaterally GI: Nondistended, soft, no tenderness to palpation, no rebound or guarding Ext: No deformities, no edema, normal range of motion in upper and lower ext Back: No CVA or midline TTP Skin: No rash, warm Lymphatic: No lymphadeopathy noted Neuro: Awake, alert. Face symmetric. GCS 15. Physical Exam - Vital signs Vitals: Temp Pulse Resp BP Pulse Ox 98.1 F 61 18 138/73 H 100 04/05/20 13:30 04/05/20 13:30 04/05/20 13:30 04/05/20 13:30 04/05/20 13:30 Course - Re-evaluation Re-evalutation: 04/05/20 14:12 Depression and SI high risk. Voluntary. Transfer to [facility] per [facility] Urine positive will treat with third-generation cephalosporin. Apparently they are having a hard time taking care of him at these institutions because he is on chronic narcotic therapy and social work is asked me to prescribe something "less strong"prescribed tramadol. Medically cleared transfer to psych. - Vital Signs Vital signs: Temp Pulse Resp BP Pulse Ox 98.1 F 61 18 138/73 H 100 04/05/20 13:30 04/05/20 13:30 04/05/20 13:30 04/05/20 13:30 04/05/20 13:30 - Laboratory Result Diagrams: 04/05/20 13:00 04/05/20 13:00 Laboratory results interpreted by me: 04/05/20 04/05/20 04/05/20 13:00 13:00 13:00 RBC 4.26 L Hgb 11.5 L Hct 35.4 L RDW 22.4 H Plt Count 71 L Chloride 111 H Anion Gap 4 L BUN 22 H Urine Protein 100 H Urine Blood LARGE H Urine Nitrite POSITIVE H Urine Urobilinogen 4.0 H Ur Leukocyte Esterase LARGE H Salicylates < 1.0 L Acetaminophen < 10 L Discharge - Discharge Clinical Impression: Suicidal ideation, Cystitis Condition: Good Disposition: PSYCH HOSP/UNIT Prescriptions: Cefuroxime Axetil [Ceftin 500 mg Tablet] 1 tab PO BID #20 tablet Tramadol HCl 100 mg PO TIDP PRN #30 tablet PRN Reason: Referrals: STEVEN VILLALOBOS MD [Primary Care Provider] - Follow up as needed
--- NOTE | 2020-04-05 15:08 | RADIOLOGY REPORT (SQ) ---
EXAM DESCRIPTION: CT ABD/PELVIS NO ORAL OR IV IMAGES COMPLETED DATE/TIME: 04/05/2020 2:52 pm REASON FOR STUDY: f;lank pain COMPARISON: 11/29/2019, 05/08/2019, 02/11/2019, 02/08/2019 TECHNIQUE: CT scan of the abdomen and pelvis performed without intravenous or oral contrast. Images reviewed with lung, soft tissue, and bone windows. Reconstructed coronal and sagittal MPR images revi ewed. All images stored on PACS. All CT scanners at this facility use dose modulation, iterative reconstruction, and/or weight based d osing when appropriate to reduce radiation dose to as low as reasonably achievable (ALARA). [facility]: Dose Right [facility]: CareDose [facility]: Dose Right [facility]: Teradose 4D [facility]: Smart Mojo Mobility RADIATION DOSE: CT Rad equipment meets quality standard of care and radiation dose reduction techniq ues were employed. CTDIvol: 15.6 mGy. DLP: 902 mGy-cm.mGy. LIMITATIONS: None. FINDINGS: LOWER CHEST: No significant findings. No nodules or infiltrates. NON-CONTRASTED LIVER, SPLEEN, ADRENALS: Evaluation limited by lack of IV contrast. No identified sign ificant masses. Diminutive appearance of the liver with nodular contours, consistent with cirrhosis. Re- demonstration of splenomegaly. PANCREAS: No masses. No peripancreatic inflammatory changes. GALLBLADDER: Surgically absent. RIGHT KIDNEY AND URETER: No suspicious masses. Assessment limited by lack of IV contrast. Nonobstru cting nephrolith within the inferior pole collecting system. No hydronephrosis or hydroureter. Int erval removal of a right ureteral stent LEFT KIDNEY AND URETER: No suspicious masses. Assessment limited by lack of IV contrast. No signifi cant calcifications. No hydronephrosis or hydroureter. A ureteral stent demonstrates normal positi oning. AORTA AND RETROPERITONEUM: No aneurysm. No retroperitoneal masses or adenopathy. BOWEL AND PERITONEAL CAVITY: No obvious masses or inflammatory changes. No free fluid. APPENDIX: Surgically absent. PELVIS, BLADDER, AND ABDOMINAL WALL:No abnormal masses. No free fluid. Bladder normal. BONES: No significant findings. OTHER: No other significant finding. IMPRESSION: Interval removal of a previously demonstrated right ureteral stent ; background of nonob structive right nephrolithiasis. Left ureteral stent demonstrates appropriate positioning. No obstr uctive uropathy. COMMENT: Quality ID # [id number]: Final reports with documentation of one or more dose reduction techniques (e.g., Automated exposure control, adjustment of the mA and/or kV according to patient size, use of iterative reconstruction technique) TECHNICAL DOCUMENTATION: JOB ID: [id number] 2010 [employer]- All Rights Reserved Reading location - IP/workstation name: [email or web address]-
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
[2020-04-05] MEDS ORDERED: ACETAMINOPHEN 325 MG TABLET PO ONE (17:09)
[2020-04-05 17:31] VITALS: BP 149/70
--- NOTE | 2020-04-05 18:12 | EKG REPORT ---
SEVERITY:- NORMAL ECG - SINUS RHYTHM : Confirmed by: Marcus Kendall MD 05-Apr-2020 18:12:35
== END 2020-04-05 17:41 | disposition home or self-care (01) ==
LOC: ER 12:49
DX: R45.851 Suicidal ideations (principal); F43.12 Post-traumatic stress disorder, chronic; N30.90 Cystitis, unspecified without hematuria; F10.10 Alcohol abuse, uncomplicated; N20.0 Calculus of kidney; I10 Essential (primary) hypertension; Z96.0 Presence of urogenital implants; Z79.891 Long term (current) use of opiate analgesic; Z88.1 Allergy status to other antibiotic agents
CPT/HCPCS: 36415; 74176; 80053; 80307; 81001; 85025; 93005; 93010; 99285

== ENCOUNTER 2020-04-07 11:59 | Emergency (ER) | payer MEDICARE ==
[2020-04-07 12:51] LABS: APPEARANCE,URINE CLOUDY; BILIRUBIN,URINE NEGATIVE (NEGATIVE); COLOR,URINE AMBER; GLUCOSE, URINE NEGATIVE (NEGATIVE); KETONES,URINE NEGATIVE (NEGATIVE); LEUKOCYTE ESTERASE,URINE MODERATE (NEGATIVE); NITRITE,URINE POSITIVE (NEGATIVE); PROTEIN,URINE 100 mg/dL (NEGATIVE)
[2020-04-07 12:53] LABS: ABSOLUTE EOSINOPHILS # (AUTO) 0.1 10^3/uL (0.0-0.6); ABSOLUTE LYMPHOCYTES (AUTO) 1.2 10^3/uL (0.5-4.7); ABSOLUTE MONOCYTES (AUTO) 0.5 10^3/uL (0.1-1.4); ABSOLUTE NEUT (AUTO) 3.7 10^3/uL (1.7-8.2); BASOPHILS % (AUTO) 0.3 % (0-2); EOSINOPHILS % (AUTO) 1.6 % (0-6); HEMATOCRIT 33.8 % (37.9-51.0); LYMPHOCYTES % (AUTO) 21.8 % (13-45); MEAN CORPUSCULAR HGB CONC 32.6 g/dL (32.0-36.0); MEAN CORPUSCULAR VOLUME 83 fl (80-97); MONOCYTES % (AUTO) 9.9 % (3-13); RED BLOOD COUNT 4.08 10^6/uL (4.35-5.55); RED CELL DISTRIBUTION WIDTH 21.9 % (11.5-14.0); SEGMENTED NEUTROPHILS % (AUTO) 66.4 % (42-78); TOTAL CELLS COUNTED % (AUTO) 100 %; WHITE BLOOD COUNT 5.5 10^3/uL (4.0-10.5)
[2020-04-07 12:56] LABS: ALBUMIN 3.3 g/dL (3.5-5.0); ALKALINE PHOSPHATASE 94 U/L (38-126); ANION GAP 6 (5-19); ASPARTATE AMINO TRANSFERASE 61 U/L (17-59); BILIRUBIN,DIRECT 0.1 mg/dL (0.0-0.4); BILIRUBIN,TOTAL 1.3 mg/dL (0.2-1.3); BLOOD UREA NITROGEN 16 mg/dL (7-20); CALCIUM 8.5 mg/dL (8.4-10.2); CARBON DIOXIDE 24 mmol/L (22-30); CHLORIDE 109 mmol/L (98-107); GLUCOSE 115 mg/dL (75-110); POTASSIUM 3.8 mmol/L (3.6-5.0)
[2020-04-07 12:58] LABS: ACETAMINOPHEN < 10 ug/mL (10-30); ALCOHOL < 10 mg/dL (NONE DETECTED); SALICYLATE < 1.0 mg/dL (2.0-20.0)
[2020-04-07 13:05] LABS: URINE AMPHETAMINES SCREEN NEGATIVE; URINE BENZODIAZEPINES SCREEN NEGATIVE; URINE COCAINE SCREEN NEGATIVE; URINE METHADONE SCREEN NEGATIVE; URINE PHENCYCLIDINE SCREEN NEGATIVE
[2020-04-07 13:09] LABS: URINE BARBITURATES SCREEN UNCONFIRMED POSITIVE; URINE MARIJUANA (THC) SCREEN UNCONFIRMED POSITIVE
[2020-04-07 13:17] LABS: PLATELET COUNT 65 10^3/uL (150-450)
[2020-04-07] MEDS ORDERED: SULFAMETHOXAZOLE/TRIMETHOPRIM 800-160 MG TABLET PO ONE (13:35)
--- NOTE | 2020-04-07 15:21 | PSYCHOLOGICAL NOTE ---
Psych Note - Psych Note Date seen by psych provider: 04/07/20 Time seen by psych provider: 13:00 Psych Note: Reason for Consult: IVC Impression/Plan: Patient is recommended for rescind of IVC and is cleared from acute psychiatric services; paperwork is signed and placed in patient's chart. Dr. Jim was consulted on the care and management of this patient; attending physician is in agreement with recommendations and disposition.
--- NOTE | 2020-04-07 16:12 | EKG REPORT ---
SEVERITY:- NORMAL ECG - SINUS RHYTHM : Confirmed by: Marcus Kendall MD 07-Apr-2020 16:12:30
[2020-04-07] MEDS ORDERED: OXYCODONE-ACETAMINOPHEN 5-325 MG TABLET PO ONE (16:42)
--- NOTE | 2020-04-07 16:49 | ER Document Report ---
ED General - General Chief Complaint: Suicidal Ideation Stated Complaint: PSYCH Time Seen by Provider: 04/07/20 12:49 Primary Care Provider: STEVEN VILLALOBOS MD [Primary Care Provider] - Follow up as needed TRAVEL OUTSIDE OF THE [place] IN LAST 30 DAYS: No - HPI Notes: Patient is a 59-year-old gentleman who presents to the emergency department for evaluation under IVC. His alleged that he was suicidal. The patient states that he told his that he wants a divorce. He states she has a drug abuse issue. He denies suicidal or homicidal ideation. No visual or auditory hallucinations. He states he has been taking his medications as prescribed, with the exception of his chronic pain medication, which he alleges his is dealing. He does have ureteral stents in place, he has a procedure upcoming in [place] in 2 weeks. He has had some urinary frequency, but denies any fevers or chills. No nausea or vomiting. - Related Data Allergies/Adverse Reactions: erythromycin base Allergy (Verified 02/28/20 13:16) hydromorphone [From Dilaudid] Adverse Reaction (Verified 02/28/20 13:16) palpations ketorolac [From Toradol] Adverse Reaction (Verified 02/28/20 13:16) Home Medications: Atenolol, Lasix, [place] Past Medical History - General Information source: Patient - Social History Smoking Status: Current Every Day Smoker Frequency of alcohol use: Heavy Family History: Reviewed & Not Pertinent - Past Medical History Cardiac Medical History: Reports: Hx DVT, Hx Hypercholesterolemia, Hx H ypertension Neurological Medical History: Reports: Hx Cerebrovascular Accident - TIA Endocrine Medical History: Denies: Hx Diabetes Mellitus Type 2 Renal/ Medical History: Reports: Hx Kidney Stones. Denies: Hx Peritoneal D ialysis GI Medical History: Reports: Hx Cirrhosis, Hx Hepatitis - History of hepatitis C. He has had treatment. Musculoskeletal Medical History: Reports Hx Arthritis Psychiatric Medical History: Reports: Hx Post Traumatic Stress Disorder Infectious Medical History: Reports: Hx Hepatitis - History of hepatitis C. He has had treatment. Past Surgical History: Reports: Hx Abdominal Surgery - hernia, Hx Appendectomy, Hx Cholecystectomy, Hx Herniorrhaphy, Hx Kidney (Renal Surgery) - kidney stones, bilateral ureteral stents on 02/08/2019, right stent removal, Hx Orthopedic S urgery - Has had cervical spine surgery, right Knee Replacement, Hx Vascular Surgery - removal of DVTs in legs, IVC filter placed - Immunizations Immunizations up to date: Yes Hx Diphtheria, Pertussis, Tetanus Vaccination: Yes Review of Systems - Review of Systems Genitourinary: See HPI Neurological/Psychological: See HPI -: Yes All other systems reviewed and negative Physical Exam - Vital signs Vitals: Temp Pulse Resp BP Pulse Ox 98.0 F 70 18 128/62 H 99 04/07/20 12:11 04/07/20 12:04/07/20 12:04/07/20 12:04/07/20 12:11 - Notes Notes: This is a pleasant, non-disheveled, 59-year-old gentleman who appears his stated age in no acute distress. He makes good eye contact. He is, does not appear to be reacting to internal stimuli. Vital signs reviewed, please refer to chart. Head is normocephalic, atraumatic. Pupils equal round, reactive to light. Neck is supple without meningismus. Heart is regular rate and rhythm. Lungs are clear to auscultation bilaterally. Abdomen is soft, nontender, normoactive bowel sounds throughout. Extremities without cyanosis, clubbing. Posterior calves are nontender. Peripheral pulses are equal. Skin is warm and dry. Patient is awake, alert, neurological exam is nonfocal. Course - Re-evaluation Re-evalutation: 04/07/20 16:50 Patient presents to the emergency department for evaluation. During medical clearance it was found that he is red and white blood cells in his urine. This is consistent with stent placement, but I will go ahead and put him on some antibiotics. He tolerated this well. I looked at his past cultures and he did grow Bactrim susceptible bacteria. He was given his first dose of that here. I will send him with a prescription for same. Otherwise, I do not see any evidence to uphold the petition. He is not suicidal. He is not homicidal. He is calm, appropriate, interactive with examiner. IVC will be rescinded. He is to follow-up with primary care and urology, return to the ED with worsening. - Vital Signs Vital signs: Temp Pulse Resp BP Pulse Ox 98.0 F 70 18 128/62 H 99 04/07/20 12:11 04/07/20 12:11 04/07/20 12:11 04/07/20 12:11 04/07/20 12:11 - Laboratory Result Diagrams: 04/07/20 12:20 04/07/20 12:20 Laboratory results interpreted by me: 04/07/20 04/07/20 04/07/20 12:20 12:20 12:20 RBC 4.08 L Hgb 11.0 L Hct 33.8 L RDW 21.9 H Plt Count 65 L Chloride 109 H Glucose 115 H AST 61 H Albumin 3.3 L Urine Protein 100 H Urine Blood LARGE H Urine Nitrite POSITIVE H Urine Urobilinogen 4.0 H Ur Leukocyte Esterase MODERATE H Salicylates < 1.0 L Acetaminophen < 10 L [place] 04/07/20 12:20 RBC Hgb Hct RDW Plt Count Chloride Glucose AST Albumin Urine Protein Urine Blood Urine Nitrite Urine Urobilinogen Ur Leukocyte Esterase Salicylates Acetaminophen [place] 0.2 L - EKG Interpretation by Me Additional EKG results interpreted by me: 04/07/20 16:51 Sinus mechanism with rate of 66 bpm. Normal axis and intervals. No acute ST changes concerning for ischemia or infarction. Discharge - Discharge Clinical Impression: Urinary tract infection Qualifiers: Urinary tract infection type: site unspecified Hematuria presence: with hematuria Qualified Code(s): N39.0 - Urinary tract infection, site not specified Depression Qualifiers: Depression Type: major depressive disorder Major depression recurrence: recurrent Active/Remission status: remission status unspecified Qualified Code(s): F33.9 - Major depressive disorder, recurrent, unspecified Condition: Stable Disposition: HOME, SELF-CARE Instructions: Depression ([facility]), Trimethoprim-Sulfa ([facility]), Urinary Tract Infection ([facility]) Additional Instructions: Please take Bactrim as prescribed. Follow-up with urology as scheduled. Follow-up with primary care this week. Return to the emergency department with worsening or new concerning symptoms of any sort. Referrals: STEVEN VILLALOBOS MD [Primary Care Provider] - Follow up as needed
[2020-04-07 17:19] VITALS: BP 183/94
== END 2020-04-07 17:05 | disposition home or self-care (01) ==
LOC: ER 11:59
DX: F33.9 Major depressive disorder, recurrent, unspecified (principal); R45.851 Suicidal ideations; N39.0 Urinary tract infection, site not specified; R31.9 Hematuria, unspecified; I10 Essential (primary) hypertension; E11.9 Type 2 diabetes mellitus without complications; Z63.5 Disruption of family by separation and divorce; Z79.899 Other long term (current) drug therapy; Z91.14 Patient's other noncompliance with medication regimen; Z96.0 Presence of urogenital implants; Z88.1 Allergy status to other antibiotic agents; F17.200 Nicotine dependence, unspecified, uncomplicated
CPT/HCPCS: 93005; 99285; 36415; 87086; 80307 ×4; 80178; 85025; 87088; 80053; 81001; 87186; 93010; A9270 ×2

== ENCOUNTER 2020-05-29 10:16 | Emergency (ER) | payer MEDICARE | END 2020-05-29 12:09 | disposition left against medical advice (07) | LOC: ER 10:16 | DX: Z53.21 Procedure and treatment not carried out due to patient leaving prior to being seen by health care provider (principal) ==

== ENCOUNTER 2020-05-29 22:08 | Emergency (ER) | payer MEDICARE ==
[2020-05-29 22:30] VITALS: BP 154/80
[2020-05-29] MEDS ORDERED: NORMAL SALINE 1000 ML 1,000 ML IV ONE (22:41)
[2020-05-29] MEDS ORDERED: ONDANSETRON HCL INJ/PF 4 MG/2 ML SDV IV ONE (22:41)
--- NOTE | 2020-05-29 22:43 | ER Document Report ---
ED Medical Screen (RME) - General Chief Complaint: Urinary Problem Stated Complaint: URINATING BLOOD Time Seen by Provider: 05/29/20 22:35 Primary Care Provider: STEVEN VILLALOBOS MD [Primary Care Provider] - Follow up as needed Notes: Patient is a 59-year-old male who presents the emergency department with a chief complaint of flank pain. Patient states that the pain starts in his left and radiates to the right. Patient states that he has been making little urine. When he does, he ends up having clots. Patient takes Percocet 10 3 times a day at home. States that it has not helped with his pain. Exam: Left CVA tenderness. I have greeted and performed a rapid initial assessment of this patient. A comprehensive ED assessment and evaluation of the patient, analysis of test results and completion of medical decision making process will be conducted by an additional ED providers. TRAVEL OUTSIDE OF THE [place] IN LAST 30 DAYS: No - Related Data Allergies/Adverse Reactions: erythromycin base Allergy (Verified 05/29/20 10:28) hydromorphone [From Dilaudid] Adverse Reaction (Verified 05/29/20 10:28) palpations ketorolac [From Toradol] Adverse Reaction (Verified 05/29/20 10:28) Past Medical History - Social History Frequency of alcohol use: None Drug Abuse: None - Past Medical History Cardiac Medical History: Reports: Hx DVT, Hx Hypercholesterolemia, Hx Hypertension Neurological Medical History: Reports: Hx Cerebrovascular Accident - TIA Endocrine Medical History: Denies: Hx Diabetes Mellitus Type 2 Renal/ Medical History: Reports: Hx Kidney Stones. Denies: Hx Peritoneal Dialysis GI Medical History: Reports: Hx Cirrhosis, Hx Hepatitis - History of hepatitis C. He has had treatment. Musculoskeltal Medical History: Reports Hx Arthritis Psychiatric Medical History: Reports: Hx Post Traumatic Stress Disorder Infectious Medical History: Reports: Hx Hepatitis - History of hepatitis C. He has had treatment. Past Surgical History: Reports: Hx Abdominal Surgery - hernia, Hx Appendectomy, Hx Cholecystectomy, Hx Herniorrhaphy, Hx Kidney (Renal Surgery) - kidney stones, bilateral ureteral stents on 02/08/2019, right stent removal, Hx Orthopedic Surgery - Has had cervical spine surgery, right Knee Replacement, Hx Vascular Surgery - removal of DVTs in legs, IVC filter placed - Immunizations Immunizations up to date: Yes Hx Diphtheria, Pertussis, Tetanus Vaccination: Yes Physical Exam - Vital signs Vitals: Temp Pulse Resp BP Pulse Ox 97.9 F 69 20 154/80 H 99 05/29/20 22:28 05/29/20 22:28 05/29/20 22:28 05/29/20 22:28 05/29/20 22:28 Course - Vital Signs Vital signs: Temp Pulse Resp BP Pulse Ox 97.9 F 69 20 154/80 H 99 05/29/20 22:28 05/29/20 22:28 05/29/20 22:28 05/29/20 22:28 05/29/20 22:28 Doctor's Discharge - Discharge Referrals: STEVEN VILLALOBOS MD [Primary Care Provider] - Follow up as needed
[2020-05-29] MEDS ORDERED: OXYCODONE-ACETAMINOPHEN 5-325 MG TABLET PO ONE (23:26)
[2020-05-29] MEDS ORDERED: ONDANSETRON 4 MG TAB.RAPDIS PO ONE (23:26)
[2020-05-29 23:50] LABS: APPEARANCE,URINE CLOUDY; BILIRUBIN,URINE NEGATIVE (NEGATIVE); COLOR,URINE AMBER; GLUCOSE, URINE NEGATIVE (NEGATIVE); KETONES,URINE NEGATIVE (NEGATIVE); PROTEIN,URINE 100 mg/dL (NEGATIVE); URINE SPECIFIC GRAVITY 1.021
[2020-05-29 23:54] LABS: ALBUMIN 2.9 g/dL (3.5-5.0); ALKALINE PHOSPHATASE 138 U/L (38-126); ANION GAP 5 (5-19); ASPARTATE AMINO TRANSFERASE 47 U/L (17-59); BILIRUBIN,DIRECT 0.5 mg/dL (0.0-0.4); BILIRUBIN,TOTAL 1.2 mg/dL (0.2-1.3); BLOOD UREA NITROGEN 11 mg/dL (7-20); CALCIUM 8.7 mg/dL (8.4-10.2); CARBON DIOXIDE 25 mmol/L (22-30); CHLORIDE 111 mmol/L (98-107); GLUCOSE 103 mg/dL (75-110); POTASSIUM 3.8 mmol/L (3.6-5.0); TOTAL PROTEIN 6.4 g/dL (6.3-8.2)
[2020-05-30 00:02] LABS: ABSOLUTE EOSINOPHILS # (AUTO) 0.1 10^3/uL (0.0-0.6); ABSOLUTE LYMPHOCYTES (AUTO) 1.9 10^3/uL (0.5-4.7); ABSOLUTE MONOCYTES (AUTO) 0.7 10^3/uL (0.1-1.4); ABSOLUTE NEUT (AUTO) 3.8 10^3/uL (1.7-8.2); BASOPHILS % (AUTO) 0.4 % (0-2); EOSINOPHILS % (AUTO) 1.7 % (0-6); HEMATOCRIT 33.5 % (37.9-51.0); HEMOGLOBIN 11.4 g/dL (13.5-17.0); LYMPHOCYTES % (AUTO) 28.7 % (13-45); MEAN CORPUSCULAR HEMOGLOBIN 28.2 pg (27.0-33.4); MEAN CORPUSCULAR VOLUME 83 fl (80-97); MONOCYTES % (AUTO) 10.2 % (3-13); RED BLOOD COUNT 4.03 10^6/uL (4.35-5.55); RED CELL DISTRIBUTION WIDTH 20.3 % (11.5-14.0); TOTAL CELLS COUNTED % (AUTO) 100 %; WHITE BLOOD COUNT 6.5 10^3/uL (4.0-10.5)
[2020-05-30 00:10] LABS: PLATELET COUNT 76 10^3/uL (150-450)
--- NOTE | 2020-05-30 00:22 | RADIOLOGY REPORT (SQ) ---
CLINICAL HISTORY: flank pain; eval stents/kidney stone? COMPARISON: None. TECHNIQUE: US RETROPERITONEUM LIMITED 05/29/2020 10:40 PM CDT FINDINGS: Right kidney measures 11.9 cm and left kidney measures 11.5 cm. There is a 1 cm lower pole right renal calculus without hydronephrosis. Urinary bladder is decompressed. The distal portion of a right ureteral stent is noted. IMPRESSION: Possible right nephrolithiasis without hydronephrosis. Right ureteral stent in place.
== END 2020-05-30 02:04 | disposition left against medical advice (07) ==
LOC: ER 22:08
DX: R10.9 Unspecified abdominal pain (principal); R31.0 Gross hematuria; I10 Essential (primary) hypertension; Z96.0 Presence of urogenital implants; Z87.442 Personal history of urinary calculi; Z79.891 Long term (current) use of opiate analgesic; Z88.1 Allergy status to other antibiotic agents
CPT/HCPCS: 99281; 36415; 87086; 85025; 80053; 81001; 87186; 76775; A9270 ×2; S0119

== ENCOUNTER 2020-06-18 09:45 | Emergency (ER) | payer MEDICARE ==
--- NOTE | 2020-06-18 10:22 | ER Document Report ---
ED GI/ - General Stated Complaint: VOMITING,BODY PAIN Time Seen by Provider: 06/18/20 10:05 Primary Care Provider: STEVEN VILLALOBOS MD [Primary Care Provider] - Follow up as needed Notes: CHIEF COMPLAINT: Multiple complaints HPI: 59-year-old male with history of hepatitis C, cirrhosis, kidney stones with ureteral stents who follows with urology at [place] presenting for urinating blood with some discomfort over the last 2 to 3 days. Also reports nausea with upper abdominal discomfort over the last week. Patient states occasionally the pain seems to radiate up into the chest. No shortness of breath no chest pain at this time. Has not had a fever. Has not seen his primary care provider or urologist about his symptoms at this time. Patient is a poor historian. Patient does report a history of cholecystectomy and appendectomy previously. ROS: See HPI - all other systems were reviewed and are otherwise negative Constitutional: no fever Eyes: no drainage, no blurred vision ENT: no runny nose, no sore throat Cardiovascular: no chest pain currently Resp: no SOB, no cough GI: no vomiting, no diarrhea, + abdominal pain, positive nausea : no dysuria, positive hematuria Integumentary: no rash Allergy: no hives Musculoskeletal: no extremity pain or swelling Neurological: no numbness/tingling, no weakness MEDICATIONS: I agree with the patient medications as charted by the RN. ALLERGIES: I agree with the allergies as charted by the RN. PAST MEDICAL HISTORY/PAST SURGICAL HISTORY: Reviewed and agree as charted by RN. SOCIAL HISTORY: Reviewed and agree as charted by RN. FAMILY HISTORY: No significant familial comorbid conditions directly related to patient complaint EXAM: Reviewed vital signs as charted by RN. CONSTITUTIONAL: Alert and oriented and responds appropriately to questions. Well-appearing; well-nourished HEAD: Normocephalic; atraumatic EYES: PERRL; Conjunctivae clear, sclerae non-icteric ENT: normal nose; no rhinorrhea; moist mucous membranes; pharynx without lesions noted, no uvula edema or deviation, no tonsillar hypertrophy, phonation normal NECK: Supple without meningismus; non-tender; no cervical lymphadenopathy, no masses CARD: RRR; no murmurs, no clicks, no rubs, no gallops; symmetric distal pulses RESP: Normal chest excursion without splinting or tachypnea; breath sounds clear and equal bilaterally; no wheezes, no rhonchi, no rales, pulse oximetry 97% on room air not hypoxic ABD/GI: Normal bowel sounds; non-distended; soft, mild generalized abdominal pain more focal in the epigastric region on palpation, no rebound, no guarding; no palpable organomegaly or masses. BACK: The back appears normal and is non-tender to palpation, there is no CVA tenderness EXT: Normal ROM in all joints; non-tender to palpation; no cyanosis, no effusions, no edema SKIN: Normal color for age and race; warm; dry; good turgor; no acute lesions noted NEURO: Moves all extremities equally; Motor and sensory function intact PSYCH: The patient's mood and manner are appropriate. Grooming and personal hygiene are appropriate. MDM: 59-year-old male with multiple complaints. Patient's records were reviewed. Patient appears to have presented 3 weeks ago with similar complaint but does not appear to have stayed for evaluation. Patient mildly tender generally across the abdomen more focal in the epigastric region. Given the patient's age and history will obtain baseline screening labs including CBC CMP ammonia PT/INR. Will obtain urinalysis. Will obtain 1 set of screening cardiac markers although he has no active chest discomfort at this time and does have reproducible abdominal pain TRAVEL OUTSIDE OF THE [place] IN LAST 30 DAYS: No - Related Data Allergies/Adverse Reactions: erythromycin base Allergy (Verified 06/18/20 11:05) hydromorphone [From Dilaudid] Adverse Reaction (Verified 06/18/20 11:05) palpations ketorolac [From Toradol] Adverse Reaction (Verified 06/18/20 11:05) Past Medical History - Social History Smoking Status: Unknown if Ever Smoked Family History: Reviewed & Not Pertinent - Past Medical History Cardiac Medical History: Reports: Hx DVT, Hx Hypercholesterolemia, Hx Hypertension Neurological Medical History: Reports: Hx Cerebrovascular Accident - TIA Endocrine Medical History: Denies: Hx Diabetes Mellitus Type 2 Renal/ Medical History: Reports: Hx Kidney Stones. Denies: Hx Peritoneal Dialysis GI Medical History: Reports: Hx Cirrhosis, Hx Hepatitis - History of hepatitis C. He has had treatment. Musculoskeletal Medical History: Reports Hx Arthritis Psychiatric Medical History: Reports: Hx Post Traumatic Stress Disorder Infectious Medical History: Reports: Hx Hepatitis - History of hepatitis C. He has had treatment. Past Surgical History: Reports: Hx Abdominal Surgery - hernia, Hx Appendectomy, Hx Cholecystectomy, Hx Herniorrhaphy, Hx Kidney (Renal Surgery) - kidney stones, bilateral ureteral stents on 02/08/2019, right stent removal, Hx Orthopedic Surgery - Has had cervical spine surgery, right Knee Replacement, Hx Vascular Surgery - removal of DVTs in legs, IVC filter placed - Immunizations Immunizations up to date: Yes Hx Diphtheria, Pertussis, Tetanus Vaccination: Yes Physical Exam - Vital signs Vitals: Temp Pulse Resp BP Pulse Ox 97.9 F 86 16 165/80 H 100 06/18/20 10:02 06/18/20 10:02 06/18/20 10:02 06/18/20 10:02 06/18/20 10:02 Course - Re-evaluation Re-evalutation: 06/18/20 11:49 Patient does not show significant leukocytosis, chemistries do not show significant abnormalities. Patient's urine does appear to be infected with positive nitrates, numerous WBCs. Will give Rocephin. 06/18/20 14:13 CT imaging shows inflammatory changes of the duodenum. Also some inflammatory changes around the stents. He follows with [facility] urology, will add culture, will place patient on Cipro and Flagyl which will cover both urinary and gastrointestinal infections. Patient will be referred to his urologist and gastroenterology. - Vital Signs Vital signs: Temp Pulse Resp BP Pulse Ox 97.9 F 86 16 165/80 H 100 06/18/20 10:02 06/18/20 10:02 06/18/20 10:02 06/18/20 10:02 06/18/20 10:02 - Laboratory Result Diagrams: 06/18/20 10:35 06/18/20 10:35 Laboratory results interpreted by wy: 06/18/20 06/18/20 06/18/20 10:35 10:35 10:35 RBC 4.23 L Hgb 12.0 L Hct 35.6 L RDW 20.2 H Plt Count 59 L PT 16.1 H Chloride 111 H Anion Gap 2 L Total Bilirubin 1.6 H Ammonia Albumin 2.9 L Urine Protein Urine Blood Urine Nitrite Ur Leukocyte Esterase 06/18/20 06/18/20 10:35 10:35 RBC Hgb Hct RDW Plt Count PT Chloride Anion Gap Total Bilirubin Ammonia < 8.7 L Albumin Urine Protein 100 H Urine Blood LARGE H Urine Nitrite POSITIVE H Ur Leukocyte Esterase MODERATE H Discharge - Discharge Clinical Impression: Acute colitis Urinary tract infection Qualifiers: Urinary tract infection type: acute cystitis Hematuria presence: with hematuria Qualified Code(s): N30.01 - Acute cystitis with hematuria Condition: Stable Disposition: HOME, SELF-CARE Additional Instructions: Take the medications as prescribed. Follow-up with your urologist at [facility] regarding the urinary infection as they will need to see you in the office to reevaluate you. Follow-up with gastroenterology for further evaluation and treatment of the colitis that was noted in your abdomen on CT imaging today. Return to the emergency department for onset of fever greater than 1 or worsenin g abdominal pain or symptoms Prescriptions: Ciprofloxacin HCl [Cipro 500 mg Tablet] 500 mg PO BID #20 tablet Metronidazole [Flagyl 500 mg Tablet] 500 mg PO BID #20 tablet Ondansetron [Zofran Odt 4 mg Tablet] 1 - 2 tab PO Q4H PRN #15 tab.rapdis PRN Reason: For Nausea/Vomiting Referrals: STEVEN VILLALOBOS MD [Primary Care Provider] - Follow up as needed RADHA KING MD [NO LOCAL MD] - Follow up as needed KATYA AGUERO MD [ACTIVE STAFF] - Follow up as needed
[2020-06-18 11:21] LABS: ABSOLUTE EOSINOPHILS # (AUTO) 0.1 10^3/uL (0.0-0.6); ABSOLUTE LYMPHOCYTES (AUTO) 0.9 10^3/uL (0.5-4.7); ABSOLUTE MONOCYTES (AUTO) 0.5 10^3/uL (0.1-1.4); ABSOLUTE NEUT (AUTO) 3.7 10^3/uL (1.7-8.2); BASOPHILS % (AUTO) 0.2 % (0-2); EOSINOPHILS % (AUTO) 1.3 % (0-6); HEMATOCRIT 35.6 % (37.9-51.0); LYMPHOCYTES % (AUTO) 17.8 % (13-45); MEAN CORPUSCULAR HEMOGLOBIN 28.3 pg (27.0-33.4); MEAN CORPUSCULAR HGB CONC 33.6 g/dL (32.0-36.0); MEAN CORPUSCULAR VOLUME 84 fl (80-97); MONOCYTES % (AUTO) 9.4 % (3-13); RED BLOOD COUNT 4.23 10^6/uL (4.35-5.55); RED CELL DISTRIBUTION WIDTH 20.2 % (11.5-14.0); SEGMENTED NEUTROPHILS % (AUTO) 71.3 % (42-78); TOTAL CELLS COUNTED % (AUTO) 100 %; WHITE BLOOD COUNT 5.2 10^3/uL (4.0-10.5)
[2020-06-18 11:27] LABS: APPEARANCE,URINE CLOUDY; BILIRUBIN,URINE NEGATIVE (NEGATIVE); COLOR,URINE AMBER; GLUCOSE, URINE NEGATIVE (NEGATIVE); KETONES,URINE NEGATIVE (NEGATIVE); LEUKOCYTE ESTERASE,URINE MODERATE (NEGATIVE); NITRITE,URINE POSITIVE (NEGATIVE); PROTEIN,URINE 100 mg/dL (NEGATIVE); URINE SPECIFIC GRAVITY 1.021; UROBILINOGEN,URINE NEGATIVE mg/dL (<2.0)
[2020-06-18 11:29] LABS: INTERNATIONAL RATION (INR) 1.27; PROTHROMBIN TIME 16.1 SEC (11.4-15.4)
[2020-06-18 11:32] LABS: ALBUMIN 2.9 g/dL (3.5-5.0); ALKALINE PHOSPHATASE 99 U/L (38-126); ASPARTATE AMINO TRANSFERASE 39 U/L (17-59); BILIRUBIN,DIRECT 0.3 mg/dL (0.0-0.4); BILIRUBIN,TOTAL 1.6 mg/dL (0.2-1.3); BLOOD UREA NITROGEN 9 mg/dL (7-20); CARBON DIOXIDE 25 mmol/L (22-30); CHLORIDE 111 mmol/L (98-107); GLUCOSE 100 mg/dL (75-110); POTASSIUM 4.4 mmol/L (3.6-5.0); TOTAL PROTEIN 6.3 g/dL (6.3-8.2)
[2020-06-18 11:37] LABS: ADD MANUAL MICROSCOPIC YES; BACTERIA,URINE 1+ /HPF; RBC,URINE TOO NUMEROUS TO CNT /HPF; WBC,URINE TOO NUMEROUS TO CNT /HPF
[2020-06-18 11:38] LABS: ANION GAP 2 (5-19)
[2020-06-18 11:39] LABS: PLATELET COUNT 59 10^3/uL (150-450)
[2020-06-18] MEDS ORDERED: CEFTRIAXONE 1 GM/D5W RTU 1 GM/50 ML RTUPB IV ONE (11:48)
--- NOTE | 2020-06-18 13:33 | RADIOLOGY REPORT (SQ) ---
EXAM DESCRIPTION: CT ABD/PELVIS WITH IV ORAL IMAGES COMPLETED DATE/TIME: 06/18/2020 1:12 pm REASON FOR STUDY: vomiting abd pain COMPARISON: CT dated 04/05/2020, renal ultrasound dated 05/29/2020 TECHNIQUE: CT scan of the abdomen and pelvis performed using helical scanning technique with dynamic intravenous contrast injection. No oral contrast. Images reviewed with lung, soft tissue, and bone windows. Reconstructed coronal and sagittal MPR images reviewed. Delayed images for evaluation of the urinary system also acquired. All images stored on PACS. All CT scanners at this facility use dose modulation, iterative reconstruction, and/or weight based d osing when appropriate to reduce radiation dose to as low as reasonably achievable (ALARA). [facility]: Dose Right [facility]: CareDose [facility]: Dose Right [facility]: Teradose 4D [facility]: [employer] CONTRAST TYPE AND DOSE: contrast/concentration: Isovue 350.00 mmol/ml; Total Contrast Delivered: 100 .0 ml; Total Saline Delivered: 68.2 ml RENAL FUNCTION: BUN 9, creatinine 0.80 RADIATION DOSE: CT Rad equipment meets quality standard of care and radiation dose reduction techniq ues were employed. CTDIvol: 17.3 - 20.1 mGy. DLP: 2138 mGy-cm.. LIMITATIONS: None. FINDINGS: LOWER CHEST: No significant findings. No nodules or infiltrates. LIVER: The liver demonstrates a nodular contour. It is small with a prominent caudate lobe. Numerou s varicosities in the splenic hilum. Findings are consistent with cirrhosis and portal hypertension. SPLEEN: Normal size. No focal lesions. PANCREAS: No masses. No significant calcifications. No adjacent inflammation or peripancreatic fluid collections. Pancreatic duct not dilated. GALLBLADDER: Surgically absent. ADRENAL GLANDS: No significant masses or asymmetry. RIGHT KIDNEY AND URETER: No solid masses. Approximately 10 mm stone in the lower pole. Hounsfield units measure just over 750. No hydronephrosis or hydroureter. LEFT KIDNEY AND URETER: No solid masses. No significant calcifications. There is mild left-sided hydronephrosis. Nephroureteral tube remains in place. The collecting system has increased in size w hen compared to prior ultrasound and CT. AORTA AND VESSELS: No aneurysm. No dissection. Renal arteries, SMA, celiac without stenosis. RETROPERITONEUM: No retroperitoneal adenopathy, hemorrhage or masses. BOWEL AND PERITONEAL CAVITY: Thickening of the duodenum wall especially involving the proximal duoden um. Mild surrounding inflammatory change. No free air. Findings may represent duodenitis. APPENDIX: Surgically absent. PELVIS: No mass. No free fluid. Normal bladder. ABDOMINAL WALL: No masses. No hernias. BONES: No significant or acute findings. OTHER: No other significant finding. IMPRESSION: 1. Mild thickening of the duodenum C-loop. Surrounding inflammation. Findings are sugg estive of infectious or inflammatory process. 2. Mild dilatation of the left collecting system despite the indwelling double-J ureteral stent whic h appears to be in satisfactory position. The proximal loop is formed in an upper pole calyx. 3. Cirrhosis with findings consistent with portal hypertension. TECHNICAL DOCUMENTATION: JOB ID: [id number] Quality ID # [id number]: Final reports with documentation of one or more dose reduction techniques (e.g., Au tomated exposure control, adjustment of the mA and/or kV according to patient size, use of iterative reconstruction technique) 2010 [employer]- All Rights Reserved Reading location - IP/workstation name: [email or web address]
[2020-06-18] MEDS ORDERED: CIPROFLOXACIN HCL 500 MG TABLET PO ONE (13:38)
[2020-06-18] MEDS ORDERED: METRONIDAZOLE 500 MG TABLET PO ONE (13:38)
[2020-06-18] MEDS ORDERED: OXYCODONE-ACETAMINOPHEN 5-325 MG TABLET PO ONE (14:45)
[2020-06-18 14:49] VITALS: BP 140/62
--- NOTE | 2020-06-19 08:33 | EKG REPORT ---
SEVERITY:- NORMAL ECG - SINUS RHYTHM : Confirmed by: Nneka Gonzalez MD 19-Jun-2020 08:32:01
== END 2020-06-18 15:01 | disposition home or self-care (01) ==
LOC: ER 09:45
DX: N30.01 Acute cystitis with hematuria (principal); K52.9 Noninfective gastroenteritis and colitis, unspecified; K74.60 Unspecified cirrhosis of liver; R11.0 Nausea; R10.84 Generalized abdominal pain; R10.817 Generalized abdominal tenderness; I10 Essential (primary) hypertension; Z87.442 Personal history of urinary calculi; Z86.19 Personal history of other infectious and parasitic diseases; Z88.1 Allergy status to other antibiotic agents
CPT/HCPCS: 93005; 99285; 96365; 36415; 87086; 82140; 83690; 85025; 85610; 80053; 81001; 84484; 74177; 93010; A9270 ×3; J0696; 87088

== ENCOUNTER 2020-07-04 10:28 | Emergency (ER) | payer MEDICARE ==
--- NOTE | 2020-07-04 12:06 | ER Document Report ---
ED Medical Screen (RME) - General Chief Complaint: Flank Pain Stated Complaint: BACK/FLANK PAIN, LOWER EXTERMITY SWELLING Time Seen by Provider: 07/04/20 11:56 Primary Care Provider: STEVEN VILLALOBOS MD [Primary Care Provider] - Follow up as needed Mode of Arrival: Ambulatory Information source: Patient Notes: 59-year-old male presented to ED for complaint of severe flank pain. He states that last week he wandered off he was confused the operator/assistant foreman had to bring him back home EMS came and saw him they told him he was fine but he has swelling to both legs. He does have a long history of kidney stones and is having flank pain he also has a history of hep C cirrhosis and low platelet count. He does smoke a pack a day does not drink or use any illicit drugs. He is alert and oriented at this time. I have greeted and performed a rapid initial assessment of this patient. A comprehensive ED assessment and evaluation of the patient, analysis of test res ults and completion of medical decision making process will be conducted by an additional ED providers. TRAVEL OUTSIDE OF THE [place] IN LAST 30 DAYS: No - Related Data Allergies/Adverse Reactions: erythromycin base Allergy (Verified 07/04/20 11:53) hydromorphone [From Dilaudid] Adverse Reaction (Verified 07/04/20 11:53) palpations ketorolac [From Toradol] Adverse Reaction (Verified 07/04/20 11:53) Home Medications: atenolol 100 mg. atb. percocet 10 - pain management Past Medical History - Social History Chew tobacco use (# tins/day): No Frequency of alcohol use: None Drug Abuse: None - Past Medical History Cardiac Medical History: Reports: Hx DVT, Hx Hypercholesterolemia, Hx Hypertension Neurological Medical History: Reports: Hx Cerebrovascular Accident - TIA Endocrine Medical History: Denies: Hx Diabetes Mellitus Type 2 Renal/ Medical History: Reports: Hx Kidney Stones. Denies: Hx Peritoneal Dialysis GI Medical History: Reports: Hx Cirrhosis, Hx Hepatitis - History of hepatitis C. He has had treatment. Musculoskeltal Medical History: Reports Hx Arthritis Psychiatric Medical History: Reports: Hx Post Traumatic Stress Disorder Infectious Medical History: Reports: Hx Hepatitis - History of hepatitis C. He has had treatment. Past Surgical History: Reports: Hx Abdominal Surgery - hernia, Hx Appendectomy, Hx Cholecystectomy, Hx Herniorrhaphy, Hx Kidney (Renal Surgery) - kidney stones, bilateral ureteral stents on 02/08/2019, right stent removal, Hx Orthopedic Surgery - Has had cervical spine surgery, right Knee Replacement, Hx Vascular Surgery - removal of DVTs in legs, IVC filter placed - Immunizations Immunizations up to date: Yes Hx Diphtheria, Pertussis, Tetanus Vaccination: Yes Physical Exam - Vital signs Vitals: Temp Pulse Resp BP Pulse Ox 97.8 F 75 18 154/87 H 100 07/04/20 10:50 07/04/20 10:50 07/04/20 10:50 07/04/20 10:50 07/04/20 10:50 Course - Vital Signs Vital signs: Temp Pulse Resp BP Pulse Ox 97.8 F 75 18 154/87 H 100 07/04/20 11:53 07/04/20 10:50 07/04/20 10:50 07/04/20 10:50 07/04/20 10:50 Doctor's Discharge - Discharge Referrals: STEVEN VILLALOBOS MD [Primary Care Provider] - Follow up as needed
[2020-07-04 12:34] LABS: APPEARANCE,URINE SLIGHTLY-CLOUDY; BILIRUBIN,URINE NEGATIVE (NEGATIVE); COLOR,URINE YELLOW; GLUCOSE, URINE NEGATIVE (NEGATIVE); KETONES,URINE NEGATIVE (NEGATIVE); LEUKOCYTE ESTERASE,URINE MODERATE (NEGATIVE); NITRITE,URINE POSITIVE (NEGATIVE); PROTEIN,URINE 100 mg/dL (NEGATIVE); URINE SPECIFIC GRAVITY 1.012; UROBILINOGEN,URINE NEGATIVE mg/dL (<2.0)
[2020-07-04 12:49] LABS: URINE AMPHETAMINES SCREEN NEGATIVE; URINE BARBITURATES SCREEN NEGATIVE; URINE BENZODIAZEPINES SCREEN NEGATIVE; URINE COCAINE SCREEN NEGATIVE; URINE MARIJUANA (THC) SCREEN NEGATIVE; URINE METHADONE SCREEN NEGATIVE; URINE PHENCYCLIDINE SCREEN NEGATIVE
--- NOTE | 2020-07-04 13:41 | RADIOLOGY REPORT (SQ) ---
EXAM DESCRIPTION: CHEST 2 VIEWS IMAGES COMPLETED DATE/TIME: 07/04/2020 1:22 pm REASON FOR STUDY: Swelling to both legs COMPARISON: 09/27/2019 EXAM PARAMETERS: NUMBER OF VIEWS: two views TECHNIQUE: Digital Frontal and Lateral radiographic views of the chest acquired. RADIATION DOSE: NA LIMITATIONS: none FINDINGS: LUNGS AND PLEURA: Small right pleural effusion. No infiltrate or mass. MEDIASTINUM AND HILAR STRUCTURES: No masses or contour abnormalities. HEART AND VASCULAR STRUCTURES: Heart normal size. No evidence for failure. BONES: No acute findings. HARDWARE: None in the chest. OTHER: No other significant finding. IMPRESSION: Small right pleural effusion. TECHNICAL DOCUMENTATION: JOB ID: [id number] 2010 [employer]- All Rights Reserved Reading location - IP/workstation name: [email or web address]
[2020-07-04 13:42] LABS: ABSOLUTE EOSINOPHILS # (AUTO) 0.1 10^3/uL (0.0-0.6); ABSOLUTE MONOCYTES (AUTO) 0.4 10^3/uL (0.1-1.4); ABSOLUTE NEUT (AUTO) 3.5 10^3/uL (1.7-8.2); BASOPHILS % (AUTO) 0.3 % (0-2); EOSINOPHILS % (AUTO) 1.3 % (0-6); HEMATOCRIT 31.4 % (37.9-51.0); HEMOGLOBIN 10.7 g/dL (13.5-17.0); INTERNATIONAL RATION (INR) 1.32; LYMPHOCYTES % (AUTO) 19.7 % (13-45); MEAN CORPUSCULAR VOLUME 85 fl (80-97); MONOCYTES % (AUTO) 8.4 % (3-13); PROTHROMBIN TIME 16.5 SEC (11.4-15.4); RED BLOOD COUNT 3.68 10^6/uL (4.35-5.55); RED CELL DISTRIBUTION WIDTH 19.7 % (11.5-14.0); SEGMENTED NEUTROPHILS % (AUTO) 70.3 % (42-78); TOTAL CELLS COUNTED % (AUTO) 100 %
[2020-07-04 13:43] LABS: PARTIAL THROMBOPLASTIN TIME 35.2 SEC (23.5-35.8)
--- NOTE | 2020-07-04 13:49 | RADIOLOGY REPORT (SQ) ---
EXAM DESCRIPTION: CT ABD/PELVIS NO ORAL OR IV IMAGES COMPLETED DATE/TIME: 07/04/2020 1:28 pm REASON FOR STUDY: Flank pain history of kidney stones COMPARISON: 06/18/2020 TECHNIQUE: CT scan of the abdomen and pelvis performed without intravenous or oral contrast. Images reviewed with lung, soft tissue, and bone windows. Reconstructed coronal and sagittal MPR images revi ewed. All images stored on PACS. All CT scanners at this facility use dose modulation, iterative reconstruction, and/or weight based d osing when appropriate to reduce radiation dose to as low as reasonably achievable (ALARA). [facility]: Dose Right [facility]: CareDose [facility]: Dose Right [facility]: Teradose 4D [facility]: [employer] RADIATION DOSE: CT Rad equipment meets quality standard of care and radiation dose reduction techniq ues were employed. CTDIvol: 14.4 mGy. DLP: 808 mGy-cm.mGy. LIMITATIONS: None. FINDINGS: LOWER CHEST: Small right pleural effusion. NON-CONTRASTED LIVER, SPLEEN, ADRENALS: The liver appears somewhat small with a slightly irregular brennen rder. There is splenomegaly. The adrenal glands are normal. PANCREAS: No masses. No peripancreatic inflammatory changes. GALLBLADDER: Surgically absent. RIGHT KIDNEY AND URETER: No suspicious masses. Assessment limited by lack of IV contrast. There is a prominent nonobstructing lower calyceal calculus. No hydronephrosis or hydroureter. LEFT KIDNEY AND URETER: No suspicious masses. Assessment limited by lack of IV contrast. No signifi cant calcifications. The there is mild fullness of the collecting system. Ureteral stent remains i n place. AORTA AND RETROPERITONEUM: No aneurysm. No retroperitoneal masses or adenopathy. BOWEL AND PERITONEAL CAVITY: There is moderate ascites. No bowel wall mass or inflammation. APPENDIX: Normal. PELVIS, BLADDER, AND ABDOMINAL WALL:There is some free fluid. A ureteral stent terminates in the in the bladder. No pelvic mass or fluid collection. BONES: No significant findings. OTHER: No other significant finding. IMPRESSION: 1. Mild left hydronephrosis. A left ureteral stent remains in place. 2. Nonobstructing lower calyceal calculus in the right kidney. 3. Cannot exclude hepatic cirrhosis. There is splenomegaly. There is ascites. 4. Small right pleural effusion. COMMENT: Quality ID # 436: Final reports with documentation of one or more dose reduction techniques (e.g., Automated exposure control, adjustment of the mA and/or kV according to patient size, use of iterative reconstruction technique) TECHNICAL DOCUMENTATION: JOB ID: [id number] 2010 [employer]- All Rights Reserved Reading location - IP/workstation name: [email or web address]
--- NOTE | 2020-07-04 13:52 | RADIOLOGY REPORT (SQ) ---
EXAM DESCRIPTION: CT HEAD WITHOUT IMAGES COMPLETED DATE/TIME: 07/04/2020 1:28 pm REASON FOR STUDY: Swelling to both legs COMPARISON: 02/28/2020 TECHNIQUE: Axial images acquired through the brain without intravenous contrast. Images reviewed wi th bone, brain and subdural windows. Additional sagittal and coronal reconstructions were generated. Images stored on PACS. All CT scanners at this facility use dose modulation, iterative reconstruction, and/or weight based d osing when appropriate to reduce radiation dose to as low as reasonably achievable (ALARA). [facility]: Dose Right [facility]: CareDose [facility]: Dose Right [facility]: Teradose 4D [facility]: [employer] RADIATION DOSE: CT Rad equipment meets quality standard of care and radiation dose reduction techniq ues were employed. CTDIvol: 53.2 mGy. DLP: 991 mGy-cm. mGy. LIMITATIONS: None. FINDINGS: VENTRICLES: Normal size and contour. CEREBRUM: No masses. No hemorrhage. No midline shift. No evidence for acute infarction. Few scatte red areas of low density in the white matter most likely chronic small vessel ischemic changes. CEREBELLUM: No masses. No hemorrhage. No alteration of density. No evidence for acute infarction. EXTRAAXIAL SPACES: No fluid collections. No masses. ORBITS AND GLOBE: No intra- or extraconal masses. Normal contour of globe without masses. CALVARIUM: No fracture. PARANASAL SINUSES: No fluid or mucosal thickening. SOFT TISSUES: No mass or hematoma. OTHER: No other significant finding. IMPRESSION: MILD CHRONIC MICROVASCULAR ISCHEMIA. NO ACUTE IMAGING FINDINGS IN THE BRAIN. EVIDENCE OF ACUTE STROKE: NO. COMMENT: Quality ID # [id number]: Final reports with documentation of one or more dose reduction techniques (e.g., Automated exposure control, adjustment of the mA and/or kV according to patient size, use of iterative reconstruction technique) TECHNICAL DOCUMENTATION: JOB ID: [id number] 2010 [employer]- All Rights Reserved Reading location - IP/workstation name: [email or web address]
[2020-07-04 13:57] LABS: ALBUMIN 2.5 g/dL (3.5-5.0); ALKALINE PHOSPHATASE 88 U/L (38-126); ASPARTATE AMINO TRANSFERASE 44 U/L (17-59); BILIRUBIN,DIRECT 0.3 mg/dL (0.0-0.4); BILIRUBIN,TOTAL 1.4 mg/dL (0.2-1.3); BLOOD UREA NITROGEN 8 mg/dL (7-20); CALCIUM 8.2 mg/dL (8.4-10.2); CARBON DIOXIDE 26 mmol/L (22-30); CHLORIDE 110 mmol/L (98-107); CREATINE KINASE 83 U/L (55-170); GLUCOSE 83 mg/dL (75-110); POTASSIUM 4.1 mmol/L (3.6-5.0); TOTAL PROTEIN 5.6 g/dL (6.3-8.2)
--- NOTE | 2020-07-04 14:03 | ER Document Report ---
ED General - General Chief Complaint: Flank Pain Stated Complaint: BACK/FLANK PAIN, LOWER EXTERMITY SWELLING Time Seen by Provider: 07/04/20 11:56 Primary Care Provider: LB VILLALOBOS MD [Primary Care Provider] - Follow up as needed Mode of Arrival: Ambulatory TRAVEL OUTSIDE OF THE [place] IN LAST 30 DAYS: No - HPI Notes: Chief complaint: Multiple complaints including right flank pain, malaise, neck and lower back pain, increased swelling of lower legs and intermittent confusion Present illness: 59-year-old male by Dr. Lb Villalobos with history of chronic/recurrent stones and UTI and hepatitis C resenting with multiple complaints as noted above. Gradual onset over about 10 days. who accompanies him says he seemed to be confused several days ago and wandered away from the house and was brought home by the [employer]. Unclear why they did not seek medical attention at that time. He thinks he may have run some low-grade fever intermittently but has not taken this. Has been taking fluids well although he does not seem to be eating as well as usual. Patient was previously admitted to [facility] several months ago and apparently had an obstructing stone at that time and had stent placement. Stent remains in situ. History of hypertension. No other known cardiac disease. Not diabetic. - Related Data Allergies/Adverse Reactions: erythromycin base Allergy (Verified 07/04/20 11:53) hydromorphone [From Dilaudid] Adverse Reaction (Verified 07/04/20 11:53) palpations ketorolac [From Toradol] Adverse Reaction (Verified 07/04/20 11:53) Home Medications: atenolol 100 mg. atb. percocet 10 - pain management Past Medical History - General Information source: Patient, Relative - Social History Smoking Status: Current Every Day Smoker Chew tobacco use (# tins/day): No Frequency of alcohol use: None Drug Abuse: None Family History: Reviewed & Not Pertinent Patient has homicidal ideation: No - Past Medical History Cardiac Medical History: Reports: Hx DVT, Hx Hypercholesterolemia, Hx Hypertension Pulmonary Medical History: Reports: None Neurological Medical History: Reports: Hx Cerebrovascular Accident - TIA Endocrine Medical History: Denies: Hx Diabetes Mellitus Type 2 Renal/ Medical History: Reports: Hx Kidney Stones. Denies: Hx Peritoneal Dialysis Malignancy Medical History: Reports None GI Medical History: Reports: Hx Cirrhosis, Hx Hepatitis - History of hepatitis C. He has had treatment. Musculoskeletal Medical History: Reports Hx Arthritis Psychiatric Medical History: Reports: Hx Post Traumatic Stress Disorder Infectious Medical History: Reports: Hx Hepatitis - History of hepatitis C. He has had treatment. Past Surgical History: Reports: Hx Abdominal Surgery - hernia, Hx Appendectomy, Hx Cholecystectomy, Hx Herniorrhaphy, Hx Kidney (Renal Surgery) - kidney stones, bilateral ureteral stents on 02/08/2019, right stent removal, Hx Orthopedic Surgery - Has had cervical spine surgery, right Knee Replacement, Hx Vascular Surgery - removal of DVTs in legs, IVC filter placed - Immunizations Immunizations up to date: Yes Hx Diphtheria, Pertussis, Tetanus Vaccination: Yes Review of Systems - Review of Systems Notes: Constitutional: As per HPI. HENT: Negative for sore throat. Eyes: Negative for visual changes. Cardiovascular: Negative for chest pain. Respiratory: Mild dyspnea on exertion. Gastrointestinal: Negative for abdominal pain, vomiting or diarrhea. Genitourinary: Negative for dysuria. Musculoskeletal: As per HPI. Skin: Negative for rash. Neurological: Negative for headaches, focal weakness or numbness. 10 point ROS negative except as marked above and in HPI. Physical Exam - Vital signs Vitals: Temp Pulse Resp BP Pulse Ox 97.8 F 75 18 154/87 H 100 07/04/20 10:50 07/04/20 10:50 07/04/20 10:50 07/04/20 10:50 07/04/20 10:50 - Notes Notes: GENERAL: Mildly obese male approximately stated age appearing in no acute distress. SKIN: Good turgor no rashes. HEAD: Normocephalic atraumatic. EYES: PERRLA. EOMI. Conjunctivae and sclerae clear. EARS: CANALS AND TMS CLEAR. NOSE: CLEAR. MOUTH: Moist mucosa. Good dentition. No stridor or edema. No drooling. NECK: Supple. Laminectomy scar posteriorly. No masses or thyromegaly. No adenopathy. Carotids 2+ without bruits. No JVD. BACK: Symmetrical without tenderness. CHEST: Respirations unlabored. Breath sounds clear and symmetrical. HEART: Regular rhythm. No murmur gallop or rub. ABDOMEN: Mildly obese. Soft nontender without masses, organomegaly or rebound. Bowel sounds normally active. No bruits. GENITALIA: Deferred. EXTREMITIES: 1+ bilateral pretibial edema. No calf tenderness. Cap refill less than 1.5 seconds. Dorsalis pedis and posterior tibial pulses 3+ and symmetrical. NEUROLOGICAL: GCS 15. Answers are slightly slow. Oriented x3. Normal gait. Fluent speech. Cranial nerves II through XII intact. Sensorimotor and cerebellar normal. Normal tone. PSYCHIATRIC: Appropriate affect. Course - Re-evaluation Re-evalutation: 07/04/20 18:52 Patient has a nonfocal neurologic exam. No fever. Serum ammonia CBC and comprehensive metabolic profile are unremarkable. Serum lactate is normal. His urine shows large amount of RBCs and WBCs. He has a ureteral stent in situ. Given him some IV Rocephin. He is a terrible historian. Patient been previously hospitalized at [facility]. After an extended period of time I was able to obtain copies of his discharge summary. He had obstructive uropathy from stones with bilateral stents. He is failed to keep his follow-up visit with urology. Patient is also complained of some lower extremity edema today. On further questioning turns out he already has Lasix at home 20 mg daily but he has not been taking this because "it makes me pee too much". I suggested that he get back on this and take it as an early childhood specialist dose to avoid urination at night. I am going to send him out on Keflex and instruct him to follow-up with urology. He needs to have the stent removed at some point. Review of records shows that his treating urologist is Dr[facility] D[facility]. He may call Dr. Dai for an appointment or alternatively I will give him the name of a local urologist he can schedule follow-up visit with. Findings, clinical impression and plan of treatment have been discussed with patient/family. Understanding of current findings and recommendations has been acknowledged by them and there is agreement regarding disposition and follow-up. - Vital Signs Vital signs: Temp Pulse Resp BP Pulse Ox 97.8 F 75 17 173/90 H 99 07/04/20 11:53 07/04/20 10:50 07/04/20 17:00 07/04/20 15:19 07/04/20 17:00 - Laboratory Result Diagrams: 07/04/20 13:09 07/04/20 13:09 Laboratory results interpreted by me: 07/04/20 07/04/20 07/04/20 11:37 13:09 13:09 RBC 3.68 L Hgb 10.7 L Hct 31.4 L RDW 19.7 H Plt Count 56 L PT 16.5 H Chloride Anion Gap Calcium Total Bilirubin Ammonia Total Protein Albumin Urine Protein 100 H Urine Blood LARGE H Urine Nitrite POSITIVE H Ur Leukocyte Esterase MODERATE H 07/04/20 07/04/20 13:09 15:58 RBC Hgb Hct RDW Plt Count PT Chloride 110 H Anion Gap 3 L Calcium 8.2 L Total Bilirubin 1.4 H Ammonia < 8.7 L Total Protein 5.6 L Albumin 2.5 L Urine Protein Urine Blood Urine Nitrite Ur Leukocyte Esterase - EKG Interpretation by Me Additional EKG results interpreted by me: 07/04/20 14:05 Twelve-lead EKG reviewed by me contemporaneously: 1256 hrs. Indication for study: Altered mental status Rhythm: Normal sinus Rate: 70 Intervals: Normal QRS axis: +[address]/T wave changes: None Comparison with prior tracing:unchanged since prior study of 06/18/2020 Interpretation: Normal EKG Discharge - Discharge Clinical Impression: Nephrolithiasis UTI (urinary tract infection) Qualifiers: Urinary tract infection type: site unspecified Hematuria presence: with hematuria Qualified Code(s): N39.0 - Urinary tract infection, site not specified; R31.9 - Hematuria, unspecified Condition: Stable Disposition: HOME, SELF-CARE Instructions: Cephalexin ([facility]) Additional Instructions: Restart your Lasix as directed. Take prescription antibiotic as instructed. Return here as needed for new or worsening symptoms: Pain that is worsening or unimproved Uncontrolled vomiting High fever or shaking chills Overall worsening Follow-up with your primary care physician and with your urologist Dr[facility] D[facility]. Alternatively given you the name for a local urologist for follow-up. Prescriptions: Cephalexin Monohydrate [Keflex 500 mg Capsule] 500 mg PO Q6H 10 Days #40 capsule Referrals: LB VILLALOBOS MD [Primary Care Provider] - Follow up as needed JOSELYN RUANO MD [NO LOCAL MD] - Follow up as needed
[2020-07-04 14:07] LABS: ANION GAP 3 (5-19)
[2020-07-04 14:14] LABS: PLATELET COUNT 56 10^3/uL (150-450)
--- NOTE | 2020-07-04 15:16 | EKG REPORT ---
SEVERITY:- NORMAL ECG - SINUS RHYTHM : Confirmed by: Nneka Gonzalez MD 04-Jul-2020 15:15:22
[2020-07-04] MEDS ORDERED: CEFTRIAXONE INJ 1000 MG VIAL IV ONE (18:46)
[2020-07-04] MEDS ORDERED: TRAMADOL HCL 50 MG TABLET PO ONE (20:01)
[2020-07-04 21:00] VITALS: BP 159/87
== END 2020-07-04 20:58 | disposition home or self-care (01) ==
LOC: ER 10:28
DX: N39.0 Urinary tract infection, site not specified (principal); N20.0 Calculus of kidney; R31.9 Hematuria, unspecified; R10.9 Unspecified abdominal pain; R53.81 Other malaise; M54.2 Cervicalgia; M54.5 Low back pain; R41.0 Disorientation, unspecified; Z86.19 Personal history of other infectious and parasitic diseases; F17.200 Nicotine dependence, unspecified, uncomplicated; Z86.718 Personal history of other venous thrombosis and embolism; Z86.73 Personal history of transient ischemic attack (TIA), and cerebral infarction without residual deficits
CPT/HCPCS: 93005; 99285; 96365; 36415; 87040; 82140; 82550; 83605; 83690; 85025; 85610; 85730; 80053; 81001; 80307; 83880; 71046; 70450; 74176; 93010; J0696; A9270

== ENCOUNTER 2020-08-06 22:09 | Emergency (ER) | payer MEDICARE ==
[2020-08-06 23:25] VITALS: BP 135/68
[2020-08-07] MEDS ORDERED: OXYCODONE HCL IR 5 MG TABLET PO ONE (00:17)
--- NOTE | 2020-08-07 00:19 | ER Document Report ---
ED Medical Screen (RME) - General Chief Complaint: Urinary Problem Stated Complaint: BLOOD IN URINE Primary Care Provider: STEVEN VILLALOBOS MD [Primary Care Provider] - Follow up as needed Mode of Arrival: Ambulatory Information source: Patient Notes: Patient is a 59-year-old male with history of hepatitis C and blood clotting problems. States that he has been urinating "straight blood" the past couple of weeks. He had this previously and was taking antibiotics for it. Bleeding resumed after he had completed the antibiotic course. General exam: Nontoxic-appearing Abdomen protuberant. No CVA tenderness I have greeted and performed a rapid initial assessment of this patient. A comprehensive ED assessment and evaluation of the patient, analysis of test results and completion of the medical decision making process will be conducted by additional ED providers. TRAVEL OUTSIDE OF THE [place] IN LAST 30 DAYS: No - Related Data Allergies/Adverse Reactions: erythromycin base Allergy (Verified 07/04/20 11:53) hydromorphone [From Dilaudid] Adverse Reaction (Verified 07/04/20 11:53) palpations ketorolac [From Toradol] Adverse Reaction (Verified 07/04/20 11:53) Past Medical History - Past Medical History Cardiac Medical History: Reports: Hx DVT, Hx Hypercholesterolemia, Hx Hypertension Neurological Medical History: Reports: Hx Cerebrovascular Accident - TIA Endocrine Medical History: Denies: Hx Diabetes Mellitus Type 2 Renal/ Medical History: Reports: Hx Kidney Stones. Denies: Hx Peritoneal Dialysis GI Medical History: Reports: Hx Cirrhosis, Hx Hepatitis - History of hepatitis C. He has had treatment. Musculoskeltal Medical History: Reports Hx Arthritis Psychiatric Medical History: Reports: Hx Post Traumatic Stress Disorder Infectious Medical History: Reports: Hx Hepatitis - History of hepatitis C. He has had treatment. Past Surgical History: Reports: Hx Abdominal Surgery - hernia, Hx Appendectomy, Hx Cholecystectomy, Hx Herniorrhaphy, Hx Kidney (Renal Surgery) - kidney stones, bilateral ureteral stents on 02/08/2019, right stent removal, Hx Orthopedic Surgery - Has had cervical spine surgery, right Knee Replacement, Hx Vascular Surgery - removal of DVTs in legs, IVC filter placed - Immunizations Immunizations up to date: Yes Hx Diphtheria, Pertussis, Tetanus Vaccination: Yes Physical Exam - Vital signs Vitals: Temp Pulse Resp BP Pulse Ox 98.3 F 65 18 135/68 H 100 08/06/20 23:23 08/06/20 23:23 08/06/20 23:23 08/06/20 23:23 08/06/20 23:23 Course - Vital Signs Vital signs: Temp Pulse Resp BP Pulse Ox 98.3 F 65 18 135/68 H 100 08/06/20 23:23 08/06/20 23:23 08/06/20 23:23 08/06/20 23:23 08/06/20 23:23 Doctor's Discharge - Discharge Referrals: STEVEN VILLALOBOS MD [Primary Care Provider] - Follow up as needed
[2020-08-07 00:45] LABS: APPEARANCE,URINE SLIGHTLY-CLOUDY; BILIRUBIN,URINE NEGATIVE (NEGATIVE); GLUCOSE, URINE NEGATIVE (NEGATIVE); KETONES,URINE NEGATIVE (NEGATIVE); PROTEIN,URINE 100 mg/dL (NEGATIVE); URINE SPECIFIC GRAVITY 1.016
[2020-08-07 00:46] LABS: COLOR,URINE DARK YELLOW
[2020-08-07 00:55] LABS: INTERNATIONAL RATION (INR) 1.35; PROTHROMBIN TIME 16.9 SEC (11.4-15.4)
[2020-08-07 00:56] LABS: PARTIAL THROMBOPLASTIN TIME 33.4 SEC (23.5-35.8)
[2020-08-07 01:10] LABS: ALBUMIN 2.6 g/dL (3.5-5.0); ALKALINE PHOSPHATASE 127 U/L (38-126); ANION GAP 5 (5-19); ASPARTATE AMINO TRANSFERASE 66 U/L (17-59); BILIRUBIN,DIRECT 0.2 mg/dL (0.0-0.4); BILIRUBIN,TOTAL 1.1 mg/dL (0.2-1.3); BLOOD UREA NITROGEN 14 mg/dL (7-20); CALCIUM 8.9 mg/dL (8.4-10.2); CARBON DIOXIDE 25 mmol/L (22-30); CHLORIDE 112 mmol/L (98-107); GLUCOSE 89 mg/dL (75-110); TOTAL PROTEIN 5.8 g/dL (6.3-8.2)
[2020-08-07 01:13] LABS: ABSOLUTE EOSINOPHILS # (AUTO) 0.1 10^3/uL (0.0-0.6); ABSOLUTE LYMPHOCYTES (AUTO) 1.6 10^3/uL (0.5-4.7); ABSOLUTE MONOCYTES (AUTO) 0.5 10^3/uL (0.1-1.4); ABSOLUTE NEUT (AUTO) 3.4 10^3/uL (1.7-8.2); BASOPHILS % (AUTO) 0.5 % (0-2); EOSINOPHILS % (AUTO) 2.5 % (0-6); HEMOGLOBIN 11.5 g/dL (13.5-17.0); LYMPHOCYTES % (AUTO) 27.6 % (13-45); MEAN CORPUSCULAR HEMOGLOBIN 30.9 pg (27.0-33.4); MEAN CORPUSCULAR HGB CONC 34.9 g/dL (32.0-36.0); MEAN CORPUSCULAR VOLUME 88 fl (80-97); MONOCYTES % (AUTO) 9.6 % (3-13); RED BLOOD COUNT 3.73 10^6/uL (4.35-5.55); RED CELL DISTRIBUTION WIDTH 18.6 % (11.5-14.0); SEGMENTED NEUTROPHILS % (AUTO) 59.8 % (42-78); TOTAL CELLS COUNTED % (AUTO) 100 %; WHITE BLOOD COUNT 5.7 10^3/uL (4.0-10.5)
[2020-08-07 01:17] LABS: PLATELET COUNT 75 10^3/uL (150-450)
[2020-08-07] MEDS ORDERED: OXYCODONE HCL IR 5 MG TABLET ONE (02:21)
== END 2020-08-07 07:31 | disposition left against medical advice (07) ==
LOC: ER 22:09
DX: R31.0 Gross hematuria (principal); I10 Essential (primary) hypertension; Z87.442 Personal history of urinary calculi; Z88.1 Allergy status to other antibiotic agents; Z53.20 Procedure and treatment not carried out because of patient's decision for unspecified reasons
CPT/HCPCS: 99281; 36415; 85025; 85610; 85730; 80053; 81001; A9270

== ENCOUNTER 2020-08-07 16:22 | Emergency (ER) | payer MEDICARE ==
[2020-08-07 16:27] VITALS: BP 155/76
--- NOTE | 2020-08-07 16:28 | ER Document Report ---
ED Medical Screen (RME) - General Stated Complaint: BACK PAIN Time Seen by Provider: 08/07/20 16:27 Primary Care Provider: STEVEN VILLALOBOS MD [Primary Care Provider] - Follow up as needed Mode of Arrival: Ambulatory Information source: Patient Notes: 5-year-old male with history of kidney stones presents the emergency department bilateral flank pain and hematuria. Patient reports he was seen here yesterday, had labs and urine done but then left prior to full evaluation. He reports pain continues. He denies any fever. Patient ambulating with a slow steady gait, appears to be in moderate discomfort. Bilateral CVA tenderness. I have greeted and performed a rapid initial assessment of this patient. A comprehensive ED assessment and evaluation of the patient, analysis of test results and completion of the medical decision making process will be conducted by additional ED providers. I have specifically instructed the patient or family members with the patient to immediately return to any nursing staff should anything change in the patient's condition or with their chief complaint. TRAVEL OUTSIDE OF THE [place] IN LAST 30 DAYS: No - Related Data Allergies/Adverse Reactions: erythromycin base Allergy (Verified 08/07/20 02:16) hydromorphone [From Dilaudid] Adverse Reaction (Verified 08/07/20 02:16) palpations ketorolac [From Toradol] Adverse Reaction (Verified 08/07/20 02:16) Past Medical History - Past Medical History Cardiac Medical History: Reports: Hx DVT, Hx Hypercholesterolemia, Hx Hypertension Neurological Medical History: Reports: Hx Cerebrovascular Accident - TIA Endocrine Medical History: Denies: Hx Diabetes Mellitus Type 2 Renal/ Medical History: Reports: Hx Kidney Stones. Denies: Hx Peritoneal Dialysis GI Medical History: Reports: Hx Cirrhosis, Hx Hepatitis - History of hepatitis C. He has had treatment. Musculoskeltal Medical History: Reports Hx Arthritis Psychiatric Medical History: Reports: Hx Post Traumatic Stress Disorder Infectious Medical History: Reports: Hx Hepatitis - History of hepatitis C. He has had treatment. Past Surgical History: Reports: Hx Abdominal Surgery - hernia, Hx Appendectomy, Hx Cholecystectomy, Hx Herniorrhaphy, Hx Kidney (Renal Surgery) - kidney stones, bilateral ureteral stents on 02/08/2019, right stent removal, Hx Orthopedic Surgery - Has had cervical spine surgery, right Knee Replacement, Hx Vascular Surgery - removal of DVTs in legs, IVC filter placed - Immunizations Immunizations up to date: Yes Hx Diphtheria, Pertussis, Tetanus Vaccination: Yes Physical Exam - Vital signs Vitals: Temp Pulse Resp BP Pulse Ox 97.3 F 58 L 18 155/76 H 100 08/07/20 16:26 08/07/20 16:26 08/07/20 16:26 08/07/20 16:26 08/07/20 16:26 Course - Vital Signs Vital signs: Temp Pulse Resp BP Pulse Ox 97.3 F 58 L 18 155/76 H 100 08/07/20 16:26 08/07/20 16:26 08/07/20 16:26 08/07/20 16:26 08/07/20 16:26 Doctor's Discharge - Discharge Referrals: STEVEN VILLALOBOS MD [Primary Care Provider] - Follow up as needed
[2020-08-07 18:20] LABS: ABSOLUTE EOSINOPHILS # (AUTO) 0.1 10^3/uL (0.0-0.6); ABSOLUTE LYMPHOCYTES (AUTO) 1.1 10^3/uL (0.5-4.7); ABSOLUTE MONOCYTES (AUTO) 0.5 10^3/uL (0.1-1.4); ABSOLUTE NEUT (AUTO) 3.9 10^3/uL (1.7-8.2); BASOPHILS % (AUTO) 0.2 % (0-2); EOSINOPHILS % (AUTO) 1.6 % (0-6); HEMATOCRIT 32.8 % (37.9-51.0); HEMOGLOBIN 11.3 g/dL (13.5-17.0); MEAN CORPUSCULAR HEMOGLOBIN 30.7 pg (27.0-33.4); MEAN CORPUSCULAR HGB CONC 34.4 g/dL (32.0-36.0); MEAN CORPUSCULAR VOLUME 89 fl (80-97); MONOCYTES % (AUTO) 8.9 % (3-13); RED BLOOD COUNT 3.67 10^6/uL (4.35-5.55); RED CELL DISTRIBUTION WIDTH 18.7 % (11.5-14.0); SEGMENTED NEUTROPHILS % (AUTO) 69.3 % (42-78); TOTAL CELLS COUNTED % (AUTO) 100 %; WHITE BLOOD COUNT 5.6 10^3/uL (4.0-10.5)
[2020-08-07 18:33] LABS: APPEARANCE,URINE SLIGHTLY-CLOUDY; BILIRUBIN,URINE NEGATIVE (NEGATIVE); COLOR,URINE YELLOW; GLUCOSE, URINE NEGATIVE (NEGATIVE); KETONES,URINE NEGATIVE (NEGATIVE); LEUKOCYTE ESTERASE,URINE MODERATE (NEGATIVE); NITRITE,URINE NEGATIVE (NEGATIVE); PROTEIN,URINE 100 mg/dL (NEGATIVE)
[2020-08-07 18:34] LABS: PLATELET COUNT 75 10^3/uL (150-450)
[2020-08-07 18:36] LABS: ALBUMIN 2.6 g/dL (3.5-5.0); ALKALINE PHOSPHATASE 115 U/L (38-126); ANION GAP 6 (5-19); ASPARTATE AMINO TRANSFERASE 77 U/L (17-59); BILIRUBIN,DIRECT 0.2 mg/dL (0.0-0.4); BILIRUBIN,TOTAL 1.3 mg/dL (0.2-1.3); BLOOD UREA NITROGEN 12 mg/dL (7-20); CALCIUM 8.8 mg/dL (8.4-10.2); CARBON DIOXIDE 23 mmol/L (22-30); CHLORIDE 110 mmol/L (98-107); GLUCOSE 85 mg/dL (75-110); TOTAL PROTEIN 5.4 g/dL (6.3-8.2)
--- OUTSIDE RECORDS SUMMARY | 2020-08-09 17:44 | XMS REPORT ---
:1960 [facility] [address] [place] [address] Care Team Providers Name Role Phone Justin Primary Care Physician Unavailable Kody SHOEMAKER Attending Clinician Unavailable Justin Attending Clinician Unavailable Guicho Attending Clinician Unavailable MD Kwabena Hi Attending Clinician Unavailable MD Kwabena Hi Attending Clinician Unavailable PANKAJ Attending Clinician Unavailable EVERTON MCCARTHY Attending Clinician Unavailable GIULIANO Attending Clinician Unavailable NEELAM Attending Clinician Unavailable Kwabena FULLER Attending Clinician Unavailable Remington GARCIA Attending Clinician Unavailable Corie VALLEJO Attending Clinician Unavailable ANDREA Attending Clinician Unavailable Alfredo Attending Clinician Unavailable Kody JEFF Attending Clinician Unavailable Doron PINA Attending Clinician Unavailable MD Kwabena Hi Admitting Clinician Unavailable Allergies, Adverse Reactions, Alerts Allergy Allergy Status Severity Reaction(s) Onset Inactive Treating C omments Name Type Date Date Clinician ERYTHROMYCI Drug Active Unknown N BASE allergy 05-02 00:00: 00 KETOROLAC Drug Active Unknown <Not allergy Supplied> 805 (Unknown) 00:00: 00 HYDROMORPHO Drug Active Unknown palpations NE allergy (Unknown) 8 00:00: 00 ERYTHROMYCI Drug Inactive U 2016-09 N BASE allergy 003 00:00: 00 erythromyci Allergy to Active Unknown n base Substance ([id number] ) Medications Ordered Filled Start Stop Current Ordering Indication Dosage Frequency Signature Comments Components Medication Medication Date Date Medication? Clinician (SIG) Name Name albuterol 2020- No Shortness 2{puff} Inhale 2 Inhale 2 HFA 90 4-27 04-27 of breath puffs puffs mcg/actuati 00:00: 23:59 every four ev ava on inhaler 00 :00 (4) hours four (4) as needed hours as for needed wheezing. for wheezing. gabapentin Yes TK ONE C TK ON E C (NEURONTIN) 4-22 PO TID PO TID 300 MG 00:00: capsule 00 oxyCODONE 2019-0 Yes TK 1 T PO TK 1 T PO (ROXICODONE 4-16 BID PRN BID CO N ) 10 mg 00:00: immediate 00 release tablet NARCAN 4 Yes USE USE mg/actuatio 3-19 DIRECTED DIREC OSMAR n nasal 00:00: NASALLY NASALLY spray 00 ONCE ONCE solifenacin Yes TK 1 T PO TK 1 T PO (VESICARE) 3-10 D D 5 MG tablet 00:00: 00 atenoloL 0 Yes atenoloL (TENORMIN) 3-09 (TENORMIN) 100 MG 00:00: 100 MG tablet 00 tablet ELIQUIS 5 Yes ELIQUIS 5 mg Tab 3-09 mg Tab 00:00: 00 tamsulosin Yes tamsulosin (FLOMAX) 3-09 (FLOMAX) 0.4 mg 00:00: 0.4 mg capsule 00 capsule lamoTRIgine Yes 25mg Take 25 mg Ta ke 25 (LAMICTAL) 1-28 by mouth mg by 25 MG 00:00: daily. mouth tablet 00 daily. Furosemide 2018- No Kamille 20 Every (Lasix 8-20 08-23 Woodson Do Morning Tab*) 20 Mg 00:00: 00:00 Tab 00 :00 Ketorolac Yes Mateo 10 Four Times Tromethamin 8-04 Pa-C Daily as e (Toradol 00:00: Milling General Superintendent needed for Tab*) 10 Mg 00 Pain Tab Methocarbam Yes Mateo 750 Every 6 ol 8-04 Pa-C Hours for (Robaxin-75 00:00: Milling General Superintendent Muscle 0*) 750 Mg 00 Spasm Tablet Prednisone Yes Mateo 10 Taper 5 (Deltasone 8-04 Pa-C Day Taper*) 10 00:00: Milling General Superintendent Mg Tablet 00 Acetaminoph 2019- No Ayana M 1 Every 6 en/Hydrocod 6-01 06-05 Pa-C Niurka Hours as one Bitart 00:00: 00:00 needed for ([place]*) 00 :00 Pain 5/325MG Tab, 1 Tab Oral Acetaminoph Yes Kezia 1 Every 4 T o en/Hydrocod 02-24 Oro 6 Hours as one Bitart 00:00: Do needed for ([place]*) 00 Pain 5/325MG Tab Pantoprazol 2018- No Kezia 20 Daily e* 02-2414 Oro Before (Protonix*) 00:00: 00:00 Do Breakfast 20 Mg 00 :00 Tablet.dr, 20 Mg Oral Cephalexin 2018- No Kezia 500 Twice Per (Keflex*) 02-2407 Oro Day 500 Mg 00:00: 00:00 Do Capsule, 00 :00 500 Mg Oral Ondansetron Yes [place] D 4 Every 8 Hcl (Zofran 5-21 Pa-C Baith Hours as Odt*) 4 Mg 00:00: needed for Odt 00 Nausea/Vom iting Oxycodone/A Yes [place] D 1 Every 6 cetaminophe 5-21 Pa-C Baith Hours as n (Percocet 00:00: needed for 5/325 Mg*) 00 Pain 5 Mg/325 Mg Tab Ondansetron Yes Kezia 4 Every 8 Hcl (Zofran 5-05 Oro Hours as Odt*) 4 Mg 00:00: Do needed for Odt 00 Nausea/Vom iting Oxycodone Yes Robinson 5 Every 6 Hcl 5-05 Maciel Do Hours as (Roxicodone 00:00: needed for *) 5 Mg 00 Pain Tablet Tamsulosin 2018- No Kezia .4 Once Per Hcl 01-3013 Oro Day (Flomax*) 00:00: 00:00 Do 0.4 Mg 00 :00 Cap.er.24h, 0.4 Mg Oral Ketorolac 2018- No Kezia 10 Four Times Tromethamin 01-30-11 Oro Daily as e (Toradol 00:00: 00:00 Do needed for Tab*) 10 Mg 00 :00 Pain Tab, 10 Mg Oral Ondansetron Yes Deirdre L 4 Every 6 Hcl 4-30 Pa-C Hours as (Zofran*) 4 00:00: Garcia needed for Mg Tab 00 Nausea/Vom iting Tamsulosin 2018- No Deirdre L .4 Once Per Hcl 01-25-08 Pa-C Day (Flomax*) 00:00: 00:00 Garcia 0.4 Mg 00 :00 Cap.er.24h, 0.4 Mg Oral Oxycodone 2018- No Deirdre L 5 Every 6 Hcl -30 -05 Pa-C Hours as (Roxicodone 00:00: 00:00 Garcia needed for *) 5 Mg 00 :00 Pain Tablet, 5 Mg Oral Oxycodone/A Yes Tony Vallejo 1 Every 6 cetaminophe -27 Md Hours as n (Percocet 00:00: needed for 5/325 Mg*) 00 Pain 5 Mg/325 Mg Tab Omeprazole 2018- No Robinson 40 Daily (Prilosec*) 11-22 Maciel Do Before 40 Mg 00:00: 00:00 Breakfast Capsule.dr, 00 :00 40 Mg Oral Oxycodone 2018- No Robinson 5 Every 6 Hcl 11-22 Maciel Do Hours as (Roxicodone 00:00: 00:00 needed for *) 5 Mg 00 :00 Pain Tablet, 5 Mg Oral Carisoprodo 2018- No Robinson 350 Three l (Soma*) 05-12 Maciel Do Times Per 350 Mg Tab, 00:00: 00:00 Day as 350 Mg Oral 00 :00 needed for Muscle Spasm Warfarin 2018- No Robinson 5 Once Per Sodium 05-12 Maciel Do Day (Coumadin*) 00:00: 00:00 5 Mg Tab, 5 00 :00 Mg Oral Methocarbam 2019- No Kezia 500 Four Time s ol 05-02 Oro Daily as (Robaxin*) 00:00: 00:00 Do needed for 500 Mg Tab, 00 :00 Muscle 500 Mg Oral Spasm Oxycodone/A 2019- No Kezia 1 Every 4 T o cetaminophe 05-02 Oro 6 Hours as n (Percocet 00:00: 00:00 Do needed for 10/325MG*) 00 :00 Pain 10 Mg/325 Mg Tab, 1 Tab Oral Methocarbam 2019- No Keenan 1000 Every 6-8 ol 7-18 - Selley Do Hours as (Robaxin*) 00:00: 00:00 needed for 500 Mg Tab, 00 :00 Muscle 1000 Mg Spasm Oral Warfarin 2017- No Deirdre L 5 Once Per Sodium 04-10- Pa-C Day (Coumadin*) 00:00: 00:00 Garcia 5 Mg Tab, 5 00 :00 Mg Oral Oxycodone 2017- No Deirdre L 10 Every 6 Hcl 7-19 Pa-C Hours as (Roxicodone 00:00: 00:00 Garcia needed for *) 10 Mg 00 :00 Pain Tablet, 10 Mg Oral Methocarbam 2017- No Deirdre L 750 Every 6 ol 7-10 04- Pa-C Hours for (Robaxin-75 00:00: 00:00 Garcia Muscle 0*) 750 Mg 00 :00 Spasm Tablet, 750 Mg Oral Oxycodone 2018- No Robinson 10 Every 6 Hcl 04-01 Maciel Do Hours as (Roxicodone 00:00: 00:00 needed for *) 10 Mg 00 :00 Pain Tablet, 10 Mg Oral Oxycodone/A 2016-09- No Mateo 1 Every 6 cetaminophe 2-14 12-15 Pa-C Hours as n (Percocet 00:00: 00:00 Milling General Superintendent needed for 5/325 Mg*) 00 :00 Pain 5 Mg/325 Mg Tab, 1-2 Tab Oral Methocarbam 2016-09- No Mateo 500 Four Times ol 11-11-18 Pa-C Daily as (Robaxin*) 00:00: 00:00 Milling General Superintendent needed for 500 Mg Tab, 00 :00 Muscle 500 Mg Oral Spasm Prednisone 2016-09- No Mateo 10 Taper 5 (Deltasone 11-11- Pa-C Day Taper*) 10 00:00: 00:00 Milling General Superintendent Mg Tablet, 00 :00 10 Mg Oral Oxycodone/A 2016-09- No Deirdre L 1 Every 4 cetaminophe 0-25 10-26 Pa-C Hours as n (Percocet 00:00: 00:00 Garcia needed for 5/325 Mg*) 00 :00 Pain 5 Mg/325 Mg Tab, 1 Tab Oral Diazepam 2016-09- No Deirdre L 5 Twice Per (Valium*) 5 0-25 10-30 Pa-C Day as Mg Tab, 5 00:00: 00:00 Garcia needed for Mg Oral 00 :00 Spasms Oxycodone/A 2016-09- No Deirdre L 1 Every 4 cetaminophe 0-16 10-17 Pa-C Hours as n (Percocet 00:00: 00:00 Garcia needed for 5/325 Mg*) 00 :00 Pain 5 Mg/325 Mg Tab, 1 Tab Oral Methocarbam 2016-09- No Deirdre L 750 Every 6 ol 0-16 -18 Pa-C Hours for (Robaxin-75 00:00: 00:00 Garcia Muscle 0*) 750 Mg 00 :00 Spasm Tablet, 750 Mg Oral Prednisone 2016-09- No Deirdre L 60 Once Daily (Deltasone 0-16 10- Pa-C After Tab*) 20 Mg 00:00: 00:00 Garcia Breakfast Tablet, 60 00 :00 Mg Oral Methocarbam 2016-09- No Nick W 1000 Every 6 ol 0-10 07-18 Pina Pa Hours as (Robaxin*) 00:00: 00:00 needed for 500 Mg Tab, 00 :00 Muscle 1000 Mg Spasm Oral Oxycodone/A 2017- No Deirdre L 1 Every 4 cetaminophe 9-30 10- Pa-C Hours as n (Percocet 00:00: 00:00 Garcia needed for 5/325 Mg*) 00 :00 Pain 5 Mg/325 Mg Tab, 1 Tab Oral Atenolol 2017- No Keenan 100 Once Per (Tenormin*) 02-16 Selley Do Day 100 Mg 00:00: 00:00 Tablet, 100 00 :00 Mg Oral Tramadol 2017- No Keenan 50 Every 4 To Hcl (Ultram 02-16 Selley Do 6 Hours as Ir Tab*) 50 00:00: 00:00 needed for Mg Tab, 50 00 :00 Pain Mg Oral Warfarin 2017- No Keenan 5 Once Per Sodium 02-16 Selley Do Day (Coumadin*) 00:00: 00:00 5 Mg Tab, 5 00 :00 Mg Oral Atenolol Yes 100 Once Per (Tenormin*) Day 100 Mg Tablet Problems Condition Condition Condition Status Onset Resolution Last Treatin g Comments Name Details Category Date Date Treatment Clinician Date Lower Problem Resolved extremity 8-20 edema 03:47: 00 Acute flank Problem Inactive pain 6-14 03:34: 00 Acute flank Problem Inactive pain 6-14 03:34: 00 Acute flank Problem Active pain 6-14 03:34: 00 Duodenitis Problem Inactive 02-24 05:06: 00 Urinary Problem Inactive tract 02-24 infection 05:06: 00 Duodenitis Problem Inactive 02-24 05:06: 00 Urinary Problem Inactive tract 02-24 infection 05:06: 00 Duodenitis Problem Inactive 02-24 05:06: 00 Urinary Problem Inactive tract 02-24 infection 05:06: 00 Duodenitis Problem Inactive 02-24 05:06: 00 Urinary Problem Inactive tract 02-24 infection 05:06: 00 Duodenitis Problem Active 02-24 05:06: 00 Urinary Problem Active tract 02-24 infection 05:06: 00 Ureterolith Problem Inactive iasis 5-05 02:41: 00 Ureterolith Problem Inactive iasis 5-05 02:41: 00 Ureterolith Problem Inactive iasis 5-05 02:41: 00 Ureterolith Problem Inactive iasis 5-05 02:41: 00 Ureterolith Problem Inactive 2018- iasis 5-05 02:41: 00 Ureterolith Problem Inactive iasis 5-05 02:41: 00 Ureterolith Problem Inactive iasis 5-05 02:41: 00 Ureterolith Problem Active iasis 5-05 02:41: 00 Kidney Problem Inactive stone 01-25 18:22: 00 Kidney Problem Inactive stone 01-25 18:22: 00 Kidney Problem Inactive stone 01-25 18:22: 00 Kidney Problem Inactive stone 01-25 18:22: 00 Kidney Problem Inactive stone 01-25 18:22: 00 Kidney Problem Inactive stone 01-25 18:22: 00 Kidney Problem Inactive stone 01-25 18:22: 00 Kidney Problem Inactive stone 01-25 18:22: 00 Kidney Problem Active stone 01-25 18:22: 00 Kidney Problem Inactive stones 01-22 05:33: 00 Renal colic Problem Inactive 01-22 05:33: 00 Thrombocyto Problem Inactive penia 01-22 05:33: 00 Kidney Problem Inactive stones 01-22 05:33: 00 Renal colic Problem Inactive 01-22 05:33: 00 Thrombocyto Problem Inactive penia 01-22 05:33: 00 Kidney Problem Inactive stones 01-22 05:33: 00 Renal colic Problem Inactive 01-22 05:33: 00 Thrombocyto Problem Inactive penia 01-22 05:33: 00 Kidney Problem Inactive stones 01-22 05:33: 00 Renal colic Problem Inactive 01-22 05:33: 00 Thrombocyto Problem Inactive penia 01-22 05:33: 00 Kidney Problem Inactive stones 01-22 05:33: 00 Renal colic Problem Inactive 01-22 05:33: 00 Thrombocyto Problem Inactive penia 01-22 05:33: 00 Kidney Problem Inactive stones 01-22 05:33: 00 Renal colic Problem Inactive 01-22 05:33: 00 Thrombocyto Problem Inactive penia 01-22 05:33: 00 Kidney Problem Inactive stones 01-22 05:33: 00 Renal colic Problem Inactive 01-22 05:33: 00 Thrombocyto Problem Inactive penia 01-22 05:33: 00 Kidney Problem Inactive stones 01-22 05:33: 00 Renal colic Problem Inactive 01-22 05:33: 00 Thrombocyto Problem Inactive penia 01-22 05:33: 00 Kidney Problem Inactive stones 01-22 05:33: 00 Renal colic Problem Inactive 01-22 05:33: 00 Thrombocyto Problem Inactive penia 01-22 05:33: 00 Kidney Problem Active stones 01-22 05:33: 00 Renal colic Problem Active 01-22 05:33: 00 Thrombocyto Problem Active 2019-0 penia 01-22 05:33: 00 Hematuria Problem Inactive 0 01-22 05:32: 00 Liver Problem Inactive 2018-0 cirrhosis 01-22 05:32: 00 Hematuria Problem Inactive 0 01-22 05:32: 00 Liver Problem Inactive 2018-0 cirrhosis 01-22 05:32: 00 Hematuria Problem Inactive 0 01-22 05:32: 00 Liver Problem Inactive 2018-0 cirrhosis 01-22 05:32: 00 Hematuria Problem Inactive 0 01-22 05:32: 00 Liver Problem Inactive 2018-0 cirrhosis 01-22 05:32: 00 Hematuria Problem Inactive 0 01-22 05:32: 00 Liver Problem Inactive 2018-0 cirrhosis 01-22 05:32: 00 Hematuria Problem Inactive 0 01-22 05:32: 00 Liver Problem Inactive 2018-0 cirrhosis 01-22 05:32: 00 Hematuria Problem Inactive 0 01-22 05:32: 00 Liver Problem Inactive 0 cirrhosis 01-22 05:32: 00 Hematuria Problem Inactive 0 01-22 05:32: 00 Liver Problem Inactive 2018-0 cirrhosis 01-22 05:32: 00 Hematuria Problem Inactive 0 01-22 05:32: 00 Liver Problem Inactive 0 cirrhosis 01-22 05:32: 00 Hematuria Problem Active 0 01-22 05:32: 00 Liver Problem Active 2018-0 cirrhosis 01-22 05:32: 00 Acute Problem Inactive 2019-0 duodenitis 2-25 15:03: 00 Acute Problem Inactive 2019-0 duodenitis 2-25 15:03: 00 Acute Problem Inactive 2019-0 duodenitis 2-25 15:03: 00 Acute Problem Inactive 2019-0 duodenitis 2-25 15:03: 00 Acute Problem Inactive 2019-0 duodenitis 2-25 15:03: 00 Acute Problem Inactive 2019-0 duodenitis 2-25 15:03: 00 Acute Problem Resolved 2019-0 duodenitis 2-25 15:03: 00 Acute Problem Resolved 2019-0 duodenitis 2-25 15:03: 00 Acute Problem Resolved 2019-0 duodenitis 2-25 15:03: 00 Acute Problem Resolved 2019-0 duodenitis 2-25 15:03: 00 Acute Problem Resolved 2019-0 duodenitis 2-25 15:03: 00 Acute Problem Inactive 2018-0 exacerbatio 8-15 n of 09:07: chronic low 00 back pain Anticoagula Problem Inactive 2017-0 osmar on 8-15 Coumadin 09:07: 00 Acute Problem Inactive 2018-0 exacerbatio 815 n of 09:07: chronic low 00 back pain Anticoagula Problem Inactive 2018-0 osmar on 8-15 Coumadin 09:07: 00 Acute Problem Inactive 2017-0 exacerbatio 815 n of 09:07: chronic low 00 back pain Anticoagula Problem Inactive 2018-0 osmar on 8-15 Coumadin 09:07: 00 Acute Problem Inactive 2017-0 exacerbatio 815 n of 09:07: chronic low 00 back pain Anticoagula Problem Inactive 2017-0 osmar on 8-15 Coumadin 09:07: 00 Acute Problem Inactive 2017-0 exacerbatio 815 n of 09:07: chronic low 00 back pain Anticoagula Problem Inactive 2017-0 osmar on 8-15 Coumadin 09:07: 00 Acute Problem Inactive 2017-0 exacerbatio 815 n of 09:07: chronic low 00 back pain Anticoagula Problem Inactive 2017-0 osmar on 815 Coumadin 09:07: 00 Acute Problem Inactive 2017-0 exacerbatio 15 n of 09:07: chronic low 00 back pain Anticoagula Problem Inactive 2017-0 osmar on 815 Coumadin 09:07: 00 Acute Problem Resolved 2017-0 exacerbatio 815 n of 09:07: chronic low 00 back pain Anticoagula Problem Resolved 2017-0 osmar on 8-15 Coumadin 09:07: 00 Acute Problem Resolved 2017-0 exacerbatio 815 n of 09:07: chronic low 00 back pain Anticoagula Problem Resolved 2017-0 osmar on 8-15 Coumadin 09:07: 00 Acute Problem Resolved 2017-0 exacerbatio 815 n of 09:07: chronic low 00 back pain Anticoagula Problem Resolved 2017-0 osmar on 8-15 Coumadin 09:07: 00 Acute Problem Resolved 2017-0 exacerbatio 815 n of 09:07: chronic low 00 back pain Anticoagula Problem Resolved 2017-0 osmar on 8-15 Coumadin 09:07: 00 Acute Problem Resolved 2017-0 exacerbatio 815 n of 09:07: chronic low 00 back pain Anticoagula Problem Resolved 2017-0 osmar on 8-15 Coumadin 09:07: 00 Chronic Problem Inactive 2017-0 knee pain 7-18 03:46: 00 Chronic low Problem Inactive 2018-0 back pain 7-18 03:46: 00 Chronic Problem Inactive 2018-0 knee pain 7-18 03:46: 00 Chronic low Problem Inactive 2018-0 back pain 7-18 03:46: 00 Chronic Problem Inactive 2018-0 knee pain 7-18 03:46: 00 Chronic low Problem Inactive 2018-0 back pain 7-18 03:46: 00 Chronic Problem Inactive 2018-0 knee pain 7-18 03:46: 00 Chronic low Problem Inactive 2018-0 back pain 7-18 03:46: 00 Chronic Problem Inactive 2018-0 knee pain 7-18 03:46: 00 Chronic low Problem Inactive 2018-0 back pain 7-18 03:46: 00 Chronic Problem Inactive 2018-0 knee pain 7-18 03:46: 00 Chronic low Problem Inactive 2018-0 back pain 7-18 03:46: 00 Chronic Problem Inactive 2018-0 knee pain 7-18 03:46: 00 Chronic low Problem Inactive 2018-0 back pain 7-18 03:46: 00 Chronic Problem Inactive 2018-0 knee pain 7-18 03:46: 00 Chronic low Problem Inactive 2018-0 back pain 7-18 03:46: 00 Chronic Problem Inactive 2018-0 knee pain 7-18 03:46: 00 Chronic low Problem Inactive 2018-0 back pain 7-18 03:46: 00 Chronic Problem Inactive 2018-0 knee pain 7-18 03:46: 00 Chronic low Problem Inactive 2018-0 back pain 7-18 03:46: 00 Chronic Problem Inactive 2018-0 knee pain 7-18 03:46: 00 Chronic low Problem Inactive 2018-0 back pain 7-18 03:46: 00 Chronic Problem Inactive 2018-0 knee pain 7-18 03:46: 00 Chronic low Problem Inactive 2018-0 back pain 7-18 03:46: 00 Chronic Problem Inactive 2018-0 knee pain 7-18 03:46: 00 Chronic low Problem Inactive 2018-0 back pain 7-18 03:46: 00 Chronic Problem Active 2018-0 knee pain 7-18 03:46: 00 Chronic low Problem Active 2018-0 back pain 7-18 03:46: 00 Anticoagula Problem Inactive 2018-0 osmar on 04-10 warfarin 14:43: 00 Neck pain Problem Inactive 2018-0 714 14:43: 00 Anticoagula Problem Inactive 2018-0 osmar on 14 warfarin 14:43: 00 Neck pain Problem Inactive 04-10 14:43: 00 Anticoagula Problem Inactive osmar on 04-10 warfarin 14:43: 00 Neck pain Problem Inactive 04-10 14:43: 00 Anticoagula Problem Inactive osmar on 04-10 warfarin 14:43: 00 Neck pain Problem Inactive 04-10 14:43: 00 Anticoagula Problem Inactive omsar on 04-10 warfarin 14:43: 00 Neck pain Problem Inactive 04-10 14:43: 00 Anticoagula Problem Inactive osmar on 04-10 warfarin 14:43: 00 Neck pain Problem Inactive 04-10 14:43: 00 Anticoagula Problem Inactive osmar on 04-10 warfarin 14:43: 00 Neck pain Problem Inactive 04-10 14:43: 00 Anticoagula Problem Inactive osmar on 04-10 warfarin 14:43: 00 Neck pain Problem Inactive 04-10 14:43: 00 Anticoagula Problem Inactive osmar on 04-10 warfarin 14:43: 00 Neck pain Problem Inactive 04-10 14:43: 00 Anticoagula Problem Inactive osmar on 04-10 warfarin 14:43: 00 Neck pain Problem Inactive 04-10 14:43: 00 Anticoagula Problem Inactive 2017- osmar on 04-10 warfarin 14:43: 00 Neck pain Problem Inactive 04-10 14:43: 00 Anticoagula Problem Inactive osmar on 04-10 warfarin 14:43: 00 Neck pain Problem Inactive 04-10 14:43: 00 Anticoagula Problem Inactive osmar on 04-10 warfarin 14:43: 00 Neck pain Problem Inactive 04-10 14:43: 00 Anticoagula Problem Inactive osmar on 04-10 warfarin 14:43: 00 Neck pain Problem Inactive 04-10 14:43: 00 Anticoagula Problem Active osmar on 04-10 warfarin 14:43: 00 Neck pain Problem Active 04-10 14:43: 00 Knee pain, Problem Inactive 2017- bilateral 7-05 08:05: 00 Knee pain, Problem Inactive bilateral 7-05 08:05: 00 Knee pain, Problem Inactive bilateral 7-05 08:05: 00 Knee pain, Problem Inactive 2018-0 bilateral 7-05 08:05: 00 Knee pain, Problem Inactive 2018-0 bilateral 7-05 08:05: 00 Knee pain, Problem Inactive 2018-0 bilateral 7-05 08:05: 00 Knee pain, Problem Inactive 2018-0 bilateral 7-05 08:05: 00 Knee pain, Problem Inactive 2018-0 bilateral 7-05 08:05: 00 Knee pain, Problem Inactive 2018-0 bilateral 7-05 08:05: 00 Knee pain, Problem Inactive 2018-0 bilateral 7-05 08:05: 00 Knee pain, Problem Inactive 2018-0 bilateral 7-05 08:05: 00 Knee pain, Problem Resolved 2018-0 bilateral 7-05 08:05: 00 Knee pain, Problem Resolved 2018-0 bilateral 7-05 08:05: 00 Knee pain, Problem Resolved 2018-0 bilateral 7-05 08:05: 00 Knee pain, Problem Resolved 2018-0 bilateral 7-05 08:05: 00 Knee pain, Problem Resolved 2018-0 bilateral 7-05 08:05: 00 Back pain Problem Inactive 2016-09 0-10 20:30: 00 Back pain Problem Inactive 2016-09 0-10 20:30: 00 Back pain Problem Inactive 2016-09 0-10 20:30: 00 Back pain Problem Inactive 2016-09 0-10 20:30: 00 Back pain Problem Inactive 2016-09 0-10 20:30: 00 Back pain Problem Inactive 2016-09 0-10 20:30: 00 Back pain Problem Inactive 2016-09 0-10 20:30: 00 Back pain Problem Inactive 2016-09 0-10 20:30: 00 Back pain Problem Inactive 2016-09 0-10 20:30: 00 Back pain Problem Inactive 2016-09 0-10 20:30: 00 Back pain Problem Inactive 2016-09 0-10 20:30: 00 Back pain Problem Inactive 2016-09 0-10 20:30: 00 Back pain Problem Inactive 2016-09 0-10 20:30: 00 Back pain Problem Inactive 2016-09 0-10 20:30: 00 Back pain Problem Inactive 2016-09 0-10 20:30: 00 Back pain Problem Inactive 2016-09 0-10 20:30: 00 Back pain Problem Active 2016-09 0-10 20:30: 00 Back strain Problem Inactive 06-27 17:00: 00 Back strain Problem Inactive 06-27 17:00: 00 Back strain Problem Inactive 06-27 17:00: 00 Back strain Problem Inactive 06-27 17:00: 00 Back strain Problem Inactive 06-27 17:00: 00 Back strain Problem Inactive 06-27 17:00: 00 Back strain Problem Inactive 06-27 17:00: 00 Back strain Problem Inactive 06-27 17:00: 00 Back strain Problem Inactive 06-27 17:00: 00 Back strain Problem Inactive 06-27 17:00: 00 Back strain Problem Inactive 06-27 17:00: 00 Back strain Problem Inactive 06-27 17:00: 00 Back strain Problem Inactive 06-27 17:00: 00 Back strain Problem Inactive 06-27 17:00: 00 Back strain Problem Inactive 06-27 17:00: 00 Back strain Problem Inactive 06-27 17:00: 00 Back strain Problem Active 06-27 17:00: 00 Leg pain Problem Inactive 02-16 05:42: 00 Leg pain Problem Inactive 02-16 05:42: 00 Leg pain Problem Inactive 02-16 05:42: 00 Leg pain Problem Inactive 02-16 05:42: 00 Leg pain Problem Inactive 02-16 05:42: 00 Leg pain Problem Inactive 02-16 05:42: 00 Leg pain Problem Inactive 02-16 05:42: 00 Leg pain Problem Inactive 02-16 05:42: 00 Leg pain Problem Inactive 02-16 05:42: 00 Leg pain Problem Inactive 02-16 05:42: 00 Leg pain Problem Inactive 02-16 05:42: 00 Leg pain Problem Inactive 02-16 05:42: 00 Leg pain Problem Inactive 02-16 05:42: 00 Leg pain Problem Inactive 02-16 05:42: 00 Leg pain Problem Inactive 02-16 05:42: 00 Leg pain Problem Inactive 02-16 05:42: 00 Leg pain Problem Active 02-16 05:42: 00 No known No known [id number] active active problems problems Procedures Procedure Date / Time Performed Performing Clinician Devic e OFFICE/OUTPATIENT VISIT EST 2019-10-22 09:30:00 [facility] MED/CURRENT MED MERGE 2019-10-22 09:30:00 OFFICE/OUTPATIENT VISIT EST 2019-09-22 08:15:00 [facility] MED/CURRENT MED MERGE 2019-09-22 08:15:00 OFFICE/OUTPATIENT VISIT EST 2019-09-03 12:00:00 OFFICE/OUTPATIENT VISIT EST 2019-08-20 10:15:00 [facility] MED/CURRENT MED MERGE 2019-08-20 10:15:00 THER/PROPH/DIAG INJ.,SC/IM 2019-08-20 10:15:00 OFFICE/OUTPATIENT VISIT EST 2019-07-29 10:30:00 [facility] MED/CURRENT MED MERGE 2019-07-29 10:30:00 OFFICE/OUTPATIENT VISIT EST 2019-07-06 08:15:00 [facility] MED/CURRENT MED MERGE 2019-06-11 09:45:00 OFFICE/OUTPATIENT VISIT EST 2019-06-11 09:45:00 [facility] MED/CURRENT MED MERGE 2019-05-11 08:30:00 OFFICE/OUTPATIENT VISIT EST 2019-05-11 08:30:00 [facility] MED/CURRENT MED MERGE 2019-05-03 14:45:00 OFFICE/OUTPATIENT VISIT EST 2019-05-03 14:45:00 X-RAY EXAM NECK SPINE 2-3 VW 2019-05-01 00:00:00 MATEO MCCARTHY PA-C MEASURE BLOOD OXYGEN LEVEL 2019-05-01 00:00:00 MATEO MCCARTHY THER/PROPH/DIAG INJ SC/IM 2019-05-01 00:00:00 MATEO MCCARTHY EMERGENCY DEPT VISIT 2019-05-01 00:00:00 MATEO MCCARTHY PA-C [id number] 2019-05-01 00:00:00 MATEO MCCARTHY PA-C [facility] MED/CURRENT MED MERGE 2019-03-25 10:45:00 OFFICE/OUTPATIENT VISIT EST 2019-03-25 10:45:00 ROUTINE VENIPUNCTURE 2019-02-14 00:00:[address] FULLER PA-C CT ABD & PELVIS W/O CONTRAST 2019-02-14 00:00:00 EAMON FULLER METABOLIC PANEL TOTAL CA 2019-02-14 00:00:00 EAMON FULLER PA-C URINALYSIS AUTO W/SCOPE 2019-02-14 00:00:00 EAMON FULLER PA-C COMPLETE CBC W/AUTO DIFF WBC 2019-02-14 00:00:00 EAMON FULLER BLOOD CULTURE FOR BACTERIA 2019-02-14 00:00:00 EAMON FULLER URINE BACTERIA CULTURE 2019-02-14 00:00:00 EAMON FULLER PA-C ELECTROCARDIOGRAM TRACING 2019-02-14 00:00:00 EAMON FULLER PA-C MEASURE BLOOD OXYGEN LEVEL 2019-02-14 00:00:00 EAMON FULLER THER/PROPH/DIAG INJ IV PUSH 2019-02-14 00:00:00 EAMON FULLER TX/PRO/DX INJ NEW DRUG ADDON 2019-02-14 00:00:00 EAMON FULLER EMERGENCY DEPT VISIT 2019-02-14 00:00:00 EAMON FULLER PA-C [id number] 2019-02-14 00:00:00 EAMON FULLER PA-C [id number] 2019-02-14 00:00:00 EAMON FULLER PA-C INJECTION ONDANSETRON HCI, PER 1 MG 2019-02-14 00:00:00 RAY FULLER PA-C [id number] 2019-02-14 00:00:00 EAMON FULLER PA-C ROUTINE VENIPUNCTURE 2019-01-30 00:00:[address] ABD & PELVIS W/O CONTRAST 2019-01-30 00:00:00 ROBINSON MACIEL COMPREHEN METABOLIC PANEL 2019-01-30 00:00:00 ROBINSON MACIEL URINALYSIS AUTO W/SCOPE 2019-01-30 00:00:00 ROBINSON MACIEL COMPLETE CBC W/AUTO DIFF WBC 2019-01-30 00:00:00 ROBINSON MACIEL URINE BACTERIA CULTURE 2019-01-30 00:00:00 ROBINSON MACIEL MEASURE BLOOD OXYGEN LEVEL 2019-01-30 00:00:00 ROBINSON MACIEL HYDRATE IV INFUSION ADD-ON 2019-01-30 00:00:00 ROBINSON MACIEL THER/PROPH/DIAG INJ IV PUSH 2019-01-30 00:00:00 ROBINSON MACIEL EMERGENCY DEPT VISIT 2019-01-30 00:00:00 ROBINSON MACIEL [id number] 2019-01-30 00:00:00 ROBINSON MACIEL ROUTINE VENIPUNCTURE 2019-01-29 00:00:00 KEZIA ORO METABOLIC PANEL TOTAL CA 2019-01-29 00:00:00 KEZIA ORO URINALYSIS AUTO W/SCOPE 2019-01-29 00:00:00 KEZIA ORO COMPLETE CBC W/AUTO DIFF WBC 2019-01-29 00:00:00 LEORA ORO MEASURE BLOOD OXYGEN LEVEL 2019-01-29 00:00:00 LETICIA ORO IE EMERGENCY DEPT VISIT 2019-01-29 00:00:00 KEZIA ORO ROUTINE VENIPUNCTURE 2019-01-25 00:00:00 [address]IRDRE GARCIA PA-C CT ABD & PELVIS W/O CONTRAST 2019-01-25 00:00:00 DEIRDRE GARCIA PA-C COMPREHEN METABOLIC PANEL 2019-01-25 00:00:00 DEIRDRE GARCIA URINALYSIS AUTO W/SCOPE 2019-01-25 00:00:00 DEIRDRE GARCIA PA-C COMPLETE CBC W/AUTO DIFF WBC 2019-01-25 00:00:00 DEIRDRE GARCIA PA-C MEASURE BLOOD OXYGEN LEVEL 2019-01-25 00:00:00 DEIRDRE GARCIA HYDRATE IV INFUSION ADD-ON 2019-01-25 00:00:00 DEIRDRE GARCIA THER/PROPH/DIAG INJ IV PUSH 2019-01-25 00:00:00 DEIRDRE GARCIA TX/PRO/DX INJ NEW DRUG ADDON 2019-01-25 00:00:00 DEIRDRE GARCIA PA-C EMERGENCY DEPT VISIT 2019-01-25 00:00:00 DEIRDRE GARCIA PA-C [id number] 2019-01-25 00:00:00 DEIRDRE GARCIA PA-C INJECTION ONDANSETRON HCI, PER 1 MG 2019-01-25 00:00:00 DEIRDRE GARCIA PA-C FENTANYL CITRATE INJ, 0.1 MG 2019-01-25 00:00:00 DEIRDRE GARCIA PA-C THER/PROPH/DIAG INJ SC/IM 2018-04-14 00:00:00 KEENAN MENDEZ EMERGENCY DEPT VISIT 2018-04-14 00:00:00 KEENAN MENDEZ J1100 2018-04-14 00:00:00 KEENAN MENDEZ BENADRYL INJECTION TO 50 MG 2018-04-14 00:00:00 KEENAN MENDEZ J2270 2018-04-14 00:00:00 KEENAN MENDEZ OFFICE/OUTPATIENT VISIT EST 2017-07-27 15:00:00 OFFICE/OUTPATIENT VISIT EST 2017-07-15 10:30:00 OFFICE/OUTPATIENT VISIT NEW 2017-06-30 14:00:00 Results Test Description Test Time Test Comments Text Results Atomic Results Result Comments AMYLASE 2019-10-24 13:49:00 110 HCV RNA, QUANTITATIVE REAL TIME PCR 2019-10-24 13:49:00 Test Item Value Reference Range Comments HCV RNA, QUANTITATIVE REAL TIME PCR (test <15 NOT DETECTED IU/mL NOT DETECTED code = 61743344) HCV RNA, QUANTITATIVE REAL TIME PCR (test <1.18 NOT DETECTED Log IU/mL NOT DETECTED code = 28120459) [id number] 13:49:0077HEPATITIS PANEL, ACUTE W/REFLEX TO CONFIRMATION 2019-10-24 13:49:00 Test Item Value Reference Range Comments HEPATITIS A IGM (test code = 69698108) NON-REACTIVE NON-REACT SYLVIA HEPATITIS B SURFACE ANTIGEN (test code = NON-REACTIVE NON-BROOKE CTIVE 5196-1) HEPATITIS B CORE ANTIBODY (IGM) (test code = NON-REACTIVE NON -REACTIVE 07993866) SIGNAL TO CUT-OFF (test code = 81967387) 32.70 <1.00 HEPATITIS C ANTIBODY (test code = 19037572) REACTIVE NON- REACTIVE [id number] 13:49:0030AMMONIA (P)2019-10-24 13:49:0068COMPREHENSIVE METABOLIC [id number] 13:49:00 Test Item Value Reference Range Comments CALCIUM (test code = 16173864) 8.0 mg/dL 8.6-10.3 UREA NITROGEN (BUN) (test code = 12 mg/dL 7-25 97105954) CARBON DIOXIDE (test code = 98353415) 25 mmol/L 20-32 ALBUMIN (test code = 52143156) 2.8 g/dL 3.6-5.1 SODIUM (test code = 97152339) 141 mmol/L 135-146 GLOBULIN (test code = 15592520) 3.0 g/dL (calc) 1.9-3.7 CHLORIDE (test code = 82223580) 112 mmol/L 98-110 ALKALINE PHOSPHATASE (test code = 68 U/L 40-115 60332482) eGFR (test code = 108 mL/min/1.73m2 > OR = 60 63508589) PROTEIN, TOTAL (test code = 31778960) 5.8 g/dL 6.1-8.1 AST (test code = 14543566) 29 U/L 10-35 ALBUMIN/GLOBULIN RATIO (test code = 0.9 (calc) 1.0-2.5 90332780) BUN/CREATININE RATIO (test code = NOT APPLICABLE (calc) 6-22 28004639) GLUCOSE (test code = 13471768) 191 mg/dL 65-139 ALT (test code = 59065019) 19 U/L 9-46 eGFR NON-AFR. IRAQI (test code = 93 mL/min/1.73m2 > OR = 60 44422196) CREATININE (test code = 56062613) 0.89 mg/dL 0.70-1.25 BILIRUBIN, TOTAL (test code = 0.8 mg/dL 0.2-1.2 16360453) POTASSIUM (test code = 79577331) 3.8 mmol/L 3.5-5.3 CULTURE, URINE, [id number] 08:27:00SEE NOTECBC (H/H, RBC, INDICES, WBC, PLT)2019-07-29 11:32:00 Test Item Value Reference Range Comments RDW (test code = 61205002) 13.6 % 11.0-15.0 MCV (test code = 25608167) 93.1 fL 80.0-100.0 MCH (test code = 36384336) 32.7 pg 27.0-33.0 WHITE BLOOD CELL COUNT (test code = 5.4 Thousand/uL 3.8-10.8 14706712) PLATELET COUNT (test code = 43526053) 54 Thousand/uL 140-400 HEMOGLOBIN (test code = 56366057) 11.3 g/dL 13.2-17.1 MCHC (test code = 02858682) 35.1 g/dL 32.0-36.0 MPV (test code = 40432413) 13.1 fL 7.5-12.5 RED BLOOD CELL COUNT (test code = 96953804) 3.46 Million/uL 4.20 -5.80 HEMATOCRIT (test code = 34670614) 32.2 % 38.5-50.0 [id number] 11:32:0098COMPREHENSIVE METABOLIC [id number] 11:32:00 Test Item Value Reference Range Comments BILIRUBIN, TOTAL (test code = 0.8 mg/dL 0.2-1.2 19294731) UREA NITROGEN (BUN) (test code = 8 mg/dL 7-25 75653578) ALT (test code = 10840143) 22 U/L 9-46 eGFR NON-AFR. IRAQI (test code = 99 mL/min/1.73m2 > OR = 60 45604206) CARBON DIOXIDE (test code = 17547434) 26 mmol/L 20-32 SODIUM (test code = 74170596) 140 mmol/L 135-146 AST (test code = 44060567) 36 U/L 10-35 ALBUMIN (test code = 84914611) 3.1 g/dL 3.6-5.1 GLOBULIN (test code = 41241011) 3.0 g/dL (calc) 1.9-3.7 PROTEIN, TOTAL (test code = 30572435) 6.1 g/dL 6.1-8.1 ALKALINE PHOSPHATASE (test code = 94 U/L 40-115 39943150) ALBUMIN/GLOBULIN RATIO (test code = 1.0 (calc) 1.0-2.5 02903704) BUN/CREATININE RATIO (test code = NOT APPLICABLE (calc) 6-22 96318504) CALCIUM (test code = 44633373) 8.5 mg/dL 8.6-10.3 POTASSIUM (test code = 71573645) 4.1 mmol/L 3.5-5.3 CREATININE (test code = 68715759) 0.77 mg/dL 0.70-1.33 eGFR (test code = 115 mL/min/1.73m2 > OR = 60 34313806) CHLORIDE (test code = 55669773) 110 mmol/L 98-110 GLUCOSE (test code = 02666260) 81 mg/dL 65-139 CULTURE, URINE, [id number] 11:32:00SEE [id number] 11:32:0052LIPASE 2019-07-29 11:32:0084B TYPE NATRIURETIC PEPTIDE (BNP)2019-07-29 11:32:0025 CULTURE, URINE, [id number] 09:03:00SEE XHAENRPZIBKZEU9439-81-14 03:26:[address] [address] Patient: ELLE VÁSQUEZ : 1960 Sex: M Address: [address] [place] [address] [place] [address] [facility] #: [id number] Unit #: [id number] [facility] SEQ #: [id number] Location: ED Room #: Ordering: KAMILLE WOODSON DO Diagnosis: LEGS AND FEET SWOLLEN/BACK PAIN - Venous Doppler ultrasound leftlower extremity Clinical Information: Pain, swelling. Comparison: No prior study. Findings: Grayscale imaging, color Doppler imaging and spectral analysis were performed. Normal ninfa sibility, respiratory variation and color-flow are demonstrated by the left common femoral vein, superficial femoral vein, popliteal vein and greater saphenous vein. There is no evidence of intraluminal thrombus. Limited imaging below level of the knee demonstrates patency of the posterior tibial and peroneal veins. Impression: No evidence of deep venous thrombosis from inguinal ligament to the left knee. Final report electronically signed by: Anthony Hernandez MD Signed by: ANTHONY HERNANDEZ MD 05/17/19 0322 cc: KAMILLE WOODSON WILLIAM MDBedside Troponin [id number] 03:13:00 Test Item Value Reference Range Comments Bedside Troponin I (test code = Bedside Troponin I) 0.01 0.03-0.118 White Blood [id number] 03:08:00 Test Item Value Reference Range Comments Blood leukocytes automated count (number/volume) (test 3.0 3.6-11.1 code = 6690-2) Red Blood Zzaho7973-71-71 03:08:00 Test Item Value Reference Range Comments Blood erythrocytes automated count (number/volume) 3.32 4.27-5.49 (test code = 789-8) Ynqyzcfcgt9994-40-78 03:08:00 Test Item Value Reference Range Comments Blood hemoglobin measurement (mass/volume) (test code 11.2 12.9-16.1 = 718-7) Ykoerbmspr5206-20-33 03:08:00 Test Item Value Reference Range Comments Automated blood hematocrit (volume fraction) (test 31.9 37.7-46.5 code = 4544-3) Mean Corpuscular Eehepw9787-22-54 03:08:00 Test Item Value Reference Range Comments Automated erythrocyte mean corpuscular volume (test 96.1 79.3-94.8 code = 787-2) Mean Corpuscular Tdyejmlunf5445-44-71 03:08:00 Test Item Value Reference Range Comments Automated erythrocyte mean corpuscular hemoglobin 33.6 26.8-33.2 (mass per erythrocyte) (test code = 785-6) Mean Corpuscular Hemoglobin Dewbqfv1803-03-19 03:08:00 Test Item Value Reference Range Comments Automated erythrocyte mean corpuscular hemoglobin 34.9 33.5-35.5 concentration measurement (mass/volume) (test code = 786-4) Red Cell Distribution Rwtir1950-53-31 03:08:00 Test Item Value Reference Range Comments Automated erythrocyte distribution width ratio (test 15.4 12.0-15.1 code = 788-0) Platelet Cleql2668-97-18 03:08:00 Test Item Value Reference Range Comments Automated blood platelet count 38 165-353 C ALLED BY Samantha Robin at (count/volume) (test code = 0337 TO JUAN F ZAPATA RN AND 777-3) R/V. Platelet co unt verified by slide estimate. Mean Platelet Yeicyi6842-81-02 03:08:00 Test Item Value Reference Range Comments Automated blood platelet mean volume measurement (test 9.0 7.5-10.6 code = 38377-6) Neutrophils (%) (Auto)2019-05-17 03:08:00 Test Item Value Reference Range Comments Automated blood neutrophil count as percentage of 58.2 43.2-71.5 total leukocytes (test code = 770-8) Lymphocytes (%) (Auto)2019-05-17 03:08:00 Test Item Value Reference Range Comments Automated blood lymphocyte count as percentage of 28.7 16.8-43.4 total leukocytes (test code = 736-9) Monocytes (%) (Auto)2019-05-17 03:08:00 Test Item Value Reference Range Comments Automated blood monocyte count as percentage of total 10.3 4.6-12.4 leukocytes (test code = 5905-5) Eosinophils (%) (Auto)2019-05-17 03:08:00 Test Item Value Reference Range Comments Automated blood eosinophil count as percentage of 2.4 0.7-7.8 total leukocytes (test code = 713-8) Basophils (%) (Auto)2019-05-17 03:08:00 Test Item Value Reference Range Comments Automated blood basophil count as percentage of total 0.4 0.2-1.2 leukocytes (test code = 706-2) Neutrophils # (Auto)2019-05-17 03:08:00 Test Item Value Reference Range Comments Blood neutrophils automated count (number/volume) 1.8 1.9-7.2 (test code = 751-8) Lymphocytes # (Auto)2019-05-17 03:08:00 Test Item Value Reference Range Comments Automated blood lymphocyte count (number/volume) (test 0.9 1.1-2.7 code = 731-0) Monocytes # (Auto)2019-05-17 03:08:00 Test Item Value Reference Range Comments Blood monocytes automated count (number/volume) (test 0.3 0.3-0.8 code = 742-7) Eosinophils # (Auto)2019-05-17 03:08:00 Test Item Value Reference Range Comments Automated blood eosinophil count (test code = 711-2) 0.1 0.0-0.5 Basophils # (Auto)2019-05-17 03:08:00 Test Item Value Reference Range Comments Automated blood basophil count (count/volume) (test 0.0 0.0-0.1 code = 704-7) Sodium Fvinr6689-48-76 03:08:00 Test Item Value Reference Range Comments Sodium blood (test code = 941869139) 142 137-144 Potassium Srjvr4588-98-48 03:08:00 Test Item Value Reference Range Comments Potassium blood (test code = 386356756) 3.4 3.1-5.1 Chloride Zseyy9658-23-17 03:08:00 Test Item Value Reference Range Comments Chloride blood (test code = 940547304) 110 101-110 Carbon Dioxide Bklhz8716-91-51 03:08:00 Test Item Value Reference Range Comments Carbon dioxide blood (test code = 58880069) 26 22-2 9 Glucose Fcpyf7800-94-90 03:08:00 Test Item Value Reference Range Comments Glucose blood (test code = 03872470) 147 70-105 Blood Urea Takjxbnw7708-78-87 03:08:00 Test Item Value Reference Range Comments BUN (test code = 482531957) 8.0 8.4-25.7 Zfmiygfdkx4160-61-36 03:08:00 Test Item Value Reference Range Comments Creatinine blood (test code = 638753175) 0.77 0.72-1. 25 Estimated Creatinine Clearance Opdp9126-47-04 03:08:00 Test Item Value Reference Range Comments Estimation of creatinine 124.92 PT Ht: 175.26cm, PT Wt: clearance (test code = 107.7KG 383367084) Anion Xsb2970-84-55 03:08:00 Test Item Value Reference Range Comments Anion gap measurement (test code = 81258187) 9 7-1 6 Calcium Tyoss2842-04-32 03:08:00 Test Item Value Reference Range Comments Calcium (test code = 20725512) 8.4 8.4-10.2 Total Iggltmams0729-54-71 03:08:00 Test Item Value Reference Range Comments Total bilirubin (test code = SPY0612) 1.6 0.1-1.2 Total Njtswca9825-26-21 03:08:00 Test Item Value Reference Range Comments Total protein blood (test code = 2885-2) 5.8 6.0-8.3 Sveunbk6755-56-99 03:08:00 Test Item Value Reference Range Comments Albumin (test code = MZY5669) 2.8 3.2-5.2 Bsrxymuj9972-74-94 03:08:00 Test Item Value Reference Range Comments Plasma globulin measurement (mass/volume) (test code = 3.0 2.6-4.6 77698-8) Albumin/Globulin Hvvod4071-31-25 03:08:00 Test Item Value Reference Range Comments Albumin to globulin ratio (test code = 186602) 0.9 1 .1-2.5 Aspartate Amino Transf (AST/SGOT)2019-05-17 03:08:00 Test Item Value Reference Range Comments AST (SGOT) ser/plas (test code = 99850140) 62 5-34 Alkaline Eyttbxmlgbt6305-19-78 03:08:00 Test Item Value Reference Range Comments Alkaline phosphatase (test code = 46375774) 89 40-1 50 Alanine Aminotransferase (ALT/SGPT)2019-05-17 03:08:00 Test Item Value Reference Range Comments ALT (SGPT) ser/plas (test code = 1742-6) 35 0-55 B-Type Natriuretic Amsrlpv2713-99-74 03:08:00 Test Item Value Reference Range Comments Brain natriuretic peptide (test code = 328410079) Pending CULTURE, URINE, SQWIMHR9490-80-02 10:22:00SEE NOTEC-REACTIVE UYIMAVC3201-00-17 16:08:0010.7BASIC METABOLIC KNZDK6478-09-91 16:08:00 Test Item Value Reference Range Comments CARBON DIOXIDE (test code = 00419878) 26 mmol/L 20-32 GLUCOSE (test code = 23885682) 129 mg/dL 65-139 POTASSIUM (test code = 26610882) 3.6 mmol/L 3.5-5.3 eGFR NON-AFR. IRAQI (test code = 100 mL/min/1.73m2 > OR = 60 63071745) CALCIUM (test code = 92495552) 9.5 mg/dL 8.6-10.3 eGFR (test code = 116 mL/min/1.73m2 > OR = 60 98306469) SODIUM (test code = 67932942) 140 mmol/L 135-146 BUN/CREATININE RATIO (test code = NOT APPLICABLE (calc) 6-22 79769403) CHLORIDE (test code = 11554648) 108 mmol/L 98-110 UREA NITROGEN (BUN) (test code = 7 mg/dL 7-25 87730727) CREATININE (test code = 28440831) 0.75 mg/dL 0.70-1.33 CBC (INCLUDES DIFF/PLT)2019-05-03 16:08:00 Test Item Value Reference Range Comments MCH (test code = 78757624) 32.8 pg 27.0-33.0 EOSINOPHILS (test code = 3.3 % 88504367) COMMENT(S) (test code = Review of peripheral smear 35180781) confirms automated results. RED BLOOD CELL COUNT (test code 3.81 Million/uL 4.20-5.80 = 07303652) ABSOLUTE NEUTROPHILS (test code 2960 cells/uL 2591-5569 = 29044904) HEMATOCRIT (test code = 36.8 % 38.5-50.0 25713246) MONOCYTES (test code = 8.6 % 46695724) MCV (test code = 13165298) 96.6 fL 80.0-100.0 WHITE BLOOD CELL COUNT (test 4.9 Thousand/uL 3.8-10.8 code = 51371813) PLATELET COUNT (test code = 43 Thousand/uL 140-400 25042887) ABSOLUTE LYMPHOCYTES (test code 1338 cells/uL 850-3900 = 00709374) BASOPHILS (test code = 0.4 % 71366444) MPV (test code = 19854183) 12.7 fL 7.5-12.5 LYMPHOCYTES (test code = 27.3 % 25740714) NEUTROPHILS (test code = 60.4 % 35779453) ABSOLUTE EOSINOPHILS (test code 162 cells/uL 15-500 = 56706586) ABSOLUTE BASOPHILS (test code = 20 cells/uL 0-200 56732421) ABSOLUTE MONOCYTES (test code = 421 cells/uL 200-950 55140864) MCHC (test code = 28137311) 34.0 g/dL 32.0-36.0 RDW (test code = 20880154) 13.5 % 11.0-15.0 HEMOGLOBIN (test code = 12.5 g/dL 13.2-17.1 76813830) UDS - POC Test\S\2019-05-03 14:45:00 Test Item Value Reference Range Comments UDS - POC Test (test code = UDSPOC) negative CHVKYYQPK4126-69-29 19:04:[address] [address] Patient: ELLE VÁSQUEZ : 1960 Sex: M Address: [address] [place] [address] [place] [address] [facility] #: [id number] Unit #: [id number] REQ SEQ #: [id number] Location: [facility] [place] Room #: Ordering: MATEO MCCARTHY PA-C Diagnosis: NECK PAIN - CERVICAL SPINE 3 VIEWS History: NECK PAIN NECK PAIN 3 view cervical spine. C1-C2 articulation is normal. Cervical spondylosis C5-6 andC6-7. Cervical facet arthrosis upper cervical spine. No fracture no subluxation. Lung apices areclear. IMPRESSION: No acute abnormality. Final report electronically signed by: Lizbeth Pickard MD Signed by: LIZBETH PICKARD II, MD 05/01/19 7396 cc: LIZBETH PICKARD II, MD, JUSTIN PA-CPROTHROMBIN QIME-[id number] 13:23:00 Test Item Value Reference Range Comments PT (test code = 97507582) 13.4 sec 9.0-11.5 INR (test code = 25156866) 1.3 UDP3599-48-45 11:48:0075HEPATITIS C VIRAL RNA, QUALITATIVE KVC5191-61-12 11:48:00NOT DETECTEDBILIRUBIN, OUROEY2181-08-50 11:48:000.6CULTURE, URINE, STZAGMO4887-00-12 11:48:00SEE NOTECOMPREHENSIVE METABOLIC BSSKN0125-28-97 11:48:00 Test Item Value Reference Range Comments GLOBULIN (test code = 41910266) 2.5 g/dL (calc) 1.9-3.7 ALKALINE PHOSPHATASE (test code = 106 U/L 40-115 64894029) UREA NITROGEN (BUN) (test code = 31881325) 11 mg/dL 7-25 BILIRUBIN, TOTAL (test code = 84055922) 2.0 mg/dL 0.2-1.2 AST (test code = 11383087) 61 U/L 10-35 POTASSIUM (test code = 26455400) 4.0 mmol/L 3.5-5.3 SODIUM (test code = 34008099) 139 mmol/L 135-146 CHLORIDE (test code = 12193115) 108 mmol/L 98-110 eGFR NON-AFR. IRAQI (test code = 106 mL/min/1.73m2 > OR = 60 98911745) CREATININE (test code = 46066432) 0.66 mg/dL 0.70-1.33 GLUCOSE (test code = 11097148) 94 mg/dL 65-99 CALCIUM (test code = 35711056) 8.5 mg/dL 8.6-10.3 ALBUMIN/GLOBULIN RATIO (test code = 1.2 (calc) 1.0-2.5 05265805) CARBON DIOXIDE (test code = 04151379) 25 mmol/L 20-32 ALT (test code = 16703450) 54 U/L 9-46 PROTEIN, TOTAL (test code = 45761111) 5.5 g/dL 6.1-8.1 ALBUMIN (test code = 45271518) 3.0 g/dL 3.6-5.1 BUN/CREATININE RATIO (test code = 17 (calc) 6-22 31642477) eGFR (test code = 123 mL/min/1.73m2 > OR = 60 93152226) HEPATITIS C VIRAL RNA GENOTYPE, LIPA(R)2019-03-25 11:48:00Not DetectedCBC (INCLUDES DIFF/PLT)2019-03-25 11:48:00 Test Item Value Reference Range Comments NEUTROPHILS (test code = 71.7 % 28720149) MCHC (test code = 17466802) 35.9 g/dL 32.0-36.0 ABSOLUTE MONOCYTES (test code = 589 cells/uL 200-950 87062538) BASOPHILS (test code = 0.3 % 07708670) MONOCYTES (test code = 9.5 % 23615993) WHITE BLOOD CELL COUNT (test 6.2 Thousand/uL 3.8-10.8 code = 44746291) PLATELET COUNT (test code = 61 Thousand/uL 140-400 67119006) RDW (test code = 75165972) 13.7 % 11.0-15.0 COMMENT(S) (test code = Review of peripheral smear 45508172) confirms automated results. ABSOLUTE LYMPHOCYTES (test code 1029 cells/uL 850-3900 = 83877705) HEMOGLOBIN (test code = 12.4 g/dL 13.2-17.1 40237040) LYMPHOCYTES (test code = 16.6 % 60910315) MCH (test code = 08060051) 32.9 pg 27.0-33.0 MCV (test code = 67540004) 91.5 fL 80.0-100.0 RED BLOOD CELL COUNT (test code 3.77 Million/uL 4.20-5.80 = 33495804) ABSOLUTE EOSINOPHILS (test code 118 cells/uL 15-500 = 90727802) MPV (test code = 15931548) 12.8 fL 7.5-12.5 HEMATOCRIT (test code = 34.5 % 38.5-50.0 17770601) EOSINOPHILS (test code = 1.9 % 25381386) ABSOLUTE BASOPHILS (test code = 19 cells/uL 0-200 13601018) ABSOLUTE NEUTROPHILS (test code 4445 cells/uL 7729-2783 = 14767901) JPRITD2597-67-21 11:48:44976S-PTYKUCRC OZGTDBN7092-91-96 11:48:0053.3AMYLASE 2019-03-25 11:48:38427Slxag Blood Oenir2732-82-65 00:33:00 Test Item Value Reference Range Comments Blood leukocytes automated count (number/volume) (test 4.4 3.6-11.1 code = 6690-2) Red Blood Qzrfp5177-96-41 00:33:00 Test Item Value Reference Range Comments Blood erythrocytes automated count (number/volume) 3.79 4.27-5.49 (test code = 789-8) Bvlqmtmacc7304-14-63 00:33:00 Test Item Value Reference Range Comments Blood hemoglobin measurement (mass/volume) (test code 12.6 12.9-16.1 = 718-7) Nqgbqgptsz6245-15-47 00:33:00 Test Item Value Reference Range Comments Automated blood hematocrit (volume fraction) (test 37.2 37.7-46.5 code = 4544-3) Mean Corpuscular Egxeuq3249-06-77 00:33:00 Test Item Value Reference Range Comments Automated erythrocyte mean corpuscular volume (test 98.1 79.3-94.8 code = 787-2) Mean Corpuscular Nuzourenwd3930-37-25 00:33:00 Test Item Value Reference Range Comments Automated erythrocyte mean corpuscular hemoglobin 33.2 26.8-33.2 (mass per erythrocyte) (test code = 785-6) Mean Corpuscular Hemoglobin Qqbdwwl3906-81-89 00:33:00 Test Item Value Reference Range Comments Automated erythrocyte mean corpuscular hemoglobin 33.8 33.5-35.5 concentration measurement (mass/volume) (test code = 786-4) Red Cell Distribution Rwdwx1358-25-79 00:33:00 Test Item Value Reference Range Comments Automated erythrocyte distribution width ratio (test 14.9 12.0-15.1 code = 788-0) Platelet Nlhux7640-24-35 00:33:00 Test Item Value Reference Range Comments Automated blood platelet count 45 165-353 P LATELETS CALLED BY Kathy Frye (count/volume) (test code = Yovi no at 0135 TO RAFAL 777-3) BALAJI/RN AND R/ V. Platelet count verified b y slide estimate. Mean Platelet Olwtrc8580-31-71 00:33:00 Test Item Value Reference Range Comments Automated blood platelet mean volume measurement (test 9.6 7.5-10.6 code = 75217-3) Neutrophils (%) (Auto)2019-03-11 00:33:00 Test Item Value Reference Range Comments Automated blood neutrophil count as percentage of 54.2 43.2-71.5 total leukocytes (test code = 770-8) Lymphocytes (%) (Auto)2019-03-11 00:33:00 Test Item Value Reference Range Comments Automated blood lymphocyte count as percentage of 29.9 16.8-43.4 total leukocytes (test code = 736-9) Monocytes (%) (Auto)2019-03-11 00:33:00 Test Item Value Reference Range Comments Automated blood monocyte count as percentage of total 11.5 4.6-12.4 leukocytes (test code = 5905-5) Eosinophils (%) (Auto)2019-03-11 00:33:00 Test Item Value Reference Range Comments Automated blood eosinophil count as percentage of 3.9 0.7-7.8 total leukocytes (test code = 713-8) Basophils (%) (Auto)2019-03-11 00:33:00 Test Item Value Reference Range Comments Automated blood basophil count as percentage of total 0.5 0.2-1.2 leukocytes (test code = 706-2) Neutrophils # (Auto)2019-03-11 00:33:00 Test Item Value Reference Range Comments Blood neutrophils automated count (number/volume) 2.4 1.9-7.2 (test code = 751-8) Lymphocytes # (Auto)2019-03-11 00:33:00 Test Item Value Reference Range Comments Automated blood lymphocyte count (number/volume) (test 1.3 1.1-2.7 code = 731-0) Monocytes # (Auto)2019-03-11 00:33:00 Test Item Value Reference Range Comments Blood monocytes automated count (number/volume) (test 0.5 0.3-0.8 code = 742-7) Eosinophils # (Auto)2019-03-11 00:33:00 Test Item Value Reference Range Comments Automated blood eosinophil count (test code = 711-2) 0.2 0.0-0.5 Basophils # (Auto)2019-03-11 00:33:00 Test Item Value Reference Range Comments Automated blood basophil count (count/volume) (test 0.0 0.0-0.1 code = 704-7) Sodium [id number] 00:33:00 Test Item Value Reference Range Comments Sodium blood (test code = 061014617) 143 137-144 Potassium Dwqlx6948-91-00 00:33:00 Test Item Value Reference Range Comments Potassium blood (test code = 4.2 3.1-5.1 Sli ght hemolysis present. [id number]) Results may be a ffected. Chloride [id number] 00:33:00 Test Item Value Reference Range Comments Chloride blood (test code = 083896668) 111 101-110 Carbon Dioxide [id number] 00:33:00 Test Item Value Reference Range Comments Carbon dioxide blood (test code = 60567921) 25 22-2 9 Glucose [id number] 00:33:00 Test Item Value Reference Range Comments Glucose blood (test code = 53382639) 109 70-105 Blood Urea Ilacclpb4861-83-94 00:33:00 Test Item Value Reference Range Comments BUN (test code = 965710236) 11.0 8.4-25.7 Messtmmylr7691-95-26 00:33:00 Test Item Value Reference Range Comments Creatinine blood (test code = 568684873) 0.81 0.72-1. 25 Estimated Creatinine Clearance Ksfi0921-85-51 00:33:00 Test Item Value Reference Range Comments Estimation of creatinine 119.03 PT Ht: 175.26cm, PT Wt: clearance (test code = 108.2KG 997130657) Anion Ine4122-73-83 00:33:00 Test Item Value Reference Range Comments Anion gap measurement (test code = 97460722) 11 7-1 6 Calcium Uubzj8125-14-80 00:33:00 Test Item Value Reference Range Comments Calcium (test code = 59039386) 8.5 8.4-10.2 Urine Enwks0740-66-63 23:30:00 Test Item Value Reference Range Comments Color of Urine by Auto (test code = 91328-6) RED Urine Gyswubpeut1781-32-28 23:30:00 Test Item Value Reference Range Comments Urine clarity by refractometry automated (test code = CLOUDY 60372-8) Urine Specific Tkddvbw9390-97-05 23:30:00 Test Item Value Reference Range Comments Urine specific gravity measurement by automated test 1.011 1.005-1.030 strip (relative density) (test code = 51110-8) Urine qX0937-29-62 23:30:00 Test Item Value Reference Range Comments Urine pH measurement by automated test strip (test 6.0 5.0-8.0 code = 16999-5) Urine Leukocyte Adjndjwj3980-70-08 23:30:00 Test Item Value Reference Range Comments Urine leukocyte esterase detection by automated test 2+ NEGATIVE strip (test code = 28180-5) Urine Vfubpca3717-92-96 23:30:00 Test Item Value Reference Range Comments Urine nitrite detection by automated test strip POSITIVE NEGATIVE (test code = 42651-7) Urine Gdstree1431-21-80 23:30:00 Test Item Value Reference Range Comments Urine protein detection by automated test strip (test 2+ NEGATIVE code = 91275-8) Urine Glucose (UA)2019-03-10 23:30:00 Test Item Value Reference Range Comments Urine glucose detection by automated test strip NEGATIVE NEGATIVE (test code = 20644-0) Urine Ntqimsa7318-25-00 23:30:00 Test Item Value Reference Range Comments Urine ketone detection by automated test strip NEGATIVE N EGATIVE (test code = 99093-5) Urine Hmbnlrgxuljc7475-16-95 23:30:00 Test Item Value Reference Range Comments Urine urobilinogen measurement by automated test strip 2+ NEGATIVE (mass/volume) (test code = 69780-5) Urine Ppldgesjs3390-33-95 23:30:00 Test Item Value Reference Range Comments Urine bilirubin detection by automated test strip NEGATIVE NEGATIVE (test code = 41036-1) Urine Lybse0407-38-77 23:30:00 Test Item Value Reference Range Comments Urine erythrocytes detection by automated method (test 3+ NEGATIVE code = 53965-9) Urine Ascorbic Acid Ncqen1043-50-08 23:30:00 Test Item Value Reference Range Comments Urine ascorbic acid detection (test code = 1904-2) NEGATIVE Urine KEB6528-94-30 23:30:00 Test Item Value Reference Range Comments RBC count ur auto (test code = 798-9) <20 0-2 Urine BDL3941-51-04 23:30:00 Test Item Value Reference Range Comments Automated leukocytes count in urine sediment <100 0-5 (number/area) (test code = 05826-7) Urine Fxlyg9868-96-52 23:30:00 Test Item Value Reference Range Comments Urine mucus detection by automated method (test MODERATE code = 30565-0) White Blood Fznnq3194-32-79 14:21:00 Test Item Value Reference Range Comments Blood leukocytes automated count (number/volume) (test 5.3 3.6-11.1 code = 6690-2) Red Blood Rzhtg2032-95-20 14:21:00 Test Item Value Reference Range Comments Blood erythrocytes automated count (number/volume) 3.82 4.27-5.49 (test code = 789-8) Ygzinyrpzs8750-98-56 14:21:00 Test Item Value Reference Range Comments Blood hemoglobin measurement (mass/volume) (test code 13.0 12.9-16.1 = 718-7) Asibwmlvsn7850-60-25 14:21:00 Test Item Value Reference Range Comments Automated blood hematocrit (volume fraction) (test 36.5 37.7-46.5 code = 4544-3) Mean Corpuscular Xgkkll5702-56-33 14:21:00 Test Item Value Reference Range Comments Automated erythrocyte mean corpuscular volume (test 95.7 79.3-94.8 code = 787-2) Mean Corpuscular Hloymermvo4917-05-21 14:21:00 Test Item Value Reference Range Comments Automated erythrocyte mean corpuscular hemoglobin 34.0 26.8-33.2 (mass per erythrocyte) (test code = 785-6) Mean Corpuscular Hemoglobin Zahkvjw1232-55-77 14:21:00 Test Item Value Reference Range Comments Automated erythrocyte mean corpuscular hemoglobin 35.5 33.5-35.5 concentration measurement (mass/volume) (test code = 786-4) Red Cell Distribution Oxmxp8197-54-75 14:21:00 Test Item Value Reference Range Comments Automated erythrocyte distribution width ratio (test 14.8 12.0-15.1 code = 788-0) Platelet Cyrpx9848-45-55 14:21:00 Test Item Value Reference Range Comments Automated blood platelet count 35 165-353 P latelet count verified by (count/volume) (test code = junaid e estimate. PLATELET COUNT 777-3) CALLED BY Cal Carrington at 1458 on 02/26/19 TO JOAN ALCANTARA RN AND R/V . Mean Platelet Ptuyfv3149-14-29 14:21:00 Test Item Value Reference Range Comments Automated blood platelet mean volume measurement (test 8.9 7.5-10.6 code = 76239-7) Neutrophils (%) (Auto)2019-02-26 14:21:00 Test Item Value Reference Range Comments Automated blood neutrophil count as percentage of 67.3 43.2-71.5 total leukocytes (test code = 770-8) Lymphocytes (%) (Auto)2019-02-26 14:21:00 Test Item Value Reference Range Comments Automated blood lymphocyte count as percentage of 22.7 16.8-43.4 total leukocytes (test code = 736-9) Monocytes (%) (Auto)2019-02-26 14:21:00 Test Item Value Reference Range Comments Automated blood monocyte count as percentage of total 7.7 4.6-12.4 leukocytes (test code = 5905-5) Eosinophils (%) (Auto)2019-02-26 14:21:00 Test Item Value Reference Range Comments Automated blood eosinophil count as percentage of 2.1 0.7-7.8 total leukocytes (test code = 713-8) Basophils (%) (Auto)2019-02-26 14:21:00 Test Item Value Reference Range Comments Automated blood basophil count as percentage of total 0.2 0.2-1.2 leukocytes (test code = 706-2) Neutrophils # (Auto)2019-02-26 14:21:00 Test Item Value Reference Range Comments Blood neutrophils automated count (number/volume) 3.5 1.9-7.2 (test code = 751-8) Lymphocytes # (Auto)2019-02-26 14:21:00 Test Item Value Reference Range Comments Automated blood lymphocyte count (number/volume) (test 1.2 1.1-2.7 code = 731-0) Monocytes # (Auto)2019-02-26 14:21:00 Test Item Value Reference Range Comments Blood monocytes automated count (number/volume) (test 0.4 0.3-0.8 code = 742-7) Eosinophils # (Auto)2019-02-26 14:21:00 Test Item Value Reference Range Comments Automated blood eosinophil count (test code = 711-2) 0.1 0.0-0.5 Basophils # (Auto)2019-02-26 14:21:00 Test Item Value Reference Range Comments Automated blood basophil count (count/volume) (test 0.0 0.0-0.1 code = 704-7) Sodium Velyw8748-70-17 14:21:00 Test Item Value Reference Range Comments Sodium blood (test code = 066179431) 137 137-144 Potassium Hxsqi4707-65-73 14:21:00 Test Item Value Reference Range Comments Potassium blood (test code = 033471045) 4.1 3.1-5.1 Chloride Wzkmo9998-78-98 14:21:00 Test Item Value Reference Range Comments Chloride blood (test code = 286714935) 107 101-110 Carbon Dioxide Sdpms4702-33-56 14:21:00 Test Item Value Reference Range Comments Carbon dioxide blood (test code = 53110327) 24 22-2 9 Glucose Mgzyo0690-97-69 14:21:00 Test Item Value Reference Range Comments Glucose blood (test code = 11338048) 98 70-105 Blood Urea Gxdelcco7485-80-41 14:21:00 Test Item Value Reference Range Comments BUN (test code = 565146614) 10.0 8.4-25.7 Xyjrztzfjo3702-16-51 14:21:00 Test Item Value Reference Range Comments Creatinine blood (test code = 178951370) 0.67 0.72-1. 25 Estimated Creatinine Clearance Rahd5489-48-85 14:21:00 Test Item Value Reference Range Comments Estimation of creatinine 143.50 PT Ht: 175.26cm, PT Wt: clearance (test code = 107.6KG 810244603) Anion Tzb2298-28-56 14:21:00 Test Item Value Reference Range Comments Anion gap measurement (test code = 91621908) 10 7-1 6 Calcium Qvjym1101-76-08 14:21:00 Test Item Value Reference Range Comments Calcium (test code = 93259558) 8.6 8.4-10.2 Total Mvcpaplhh1483-54-61 14:21:00 Test Item Value Reference Range Comments Total bilirubin (test code = LIM0232) 2.2 0.1-1.2 Total Bnwqurt8973-58-49 14:21:00 Test Item Value Reference Range Comments Total protein blood (test code = 2885-2) 5.5 6.0-8.3 Acrhhow6485-79-78 14:21:00 Test Item Value Reference Range Comments Albumin (test code = FDX7955) 2.9 3.2-5.2 Pyjpcabj0033-57-02 14:21:00 Test Item Value Reference Range Comments Plasma globulin measurement (mass/volume) (test code = 2.6 2.6-4.6 55838-0) Albumin/Globulin Kubzw1719-29-43 14:21:00 Test Item Value Reference Range Comments Albumin to globulin ratio (test code = 440121) 1.1 1 .1-2.5 Aspartate Amino Transf (AST/SGOT)2019-02-26 14:21:00 Test Item Value Reference Range Comments AST (SGOT) ser/plas (test code = 54617847) 36 5-34 Alkaline Rpandhusaur8557-45-41 14:21:00 Test Item Value Reference Range Comments Alkaline phosphatase (test code = 65395906) 91 40-1 50 Alanine Aminotransferase (ALT/SGPT)2019-02-26 14:21:00 Test Item Value Reference Range Comments ALT (SGPT) ser/plas (test code = 1742-6) 29 0-55 BEFQEAUKN1652-76-25 14:21:[address] [id number] Patient: RADHA VÁSQUEZ : 1960 Sex: M Address: [address] [place] [address] [place] [address] [facility] #: [id number] Unit #: [id number] [facility] SEQ #: [id number] Location: ED Room #: Ordering: ROBYN CUNHA Diagnosis: FLANK PAIN ---- KUB WITH UPRIGHT - TWO VIEW ABDOMEN HISTORY: Flank pain, voiding with blood clot. FINDINGS: Two view abdomen. There are bilateral ureterovesical stents. There is a calculus within the right renal pelvis. Surgical clips right upper quadrant. Significant retained stool in the colon. Organ shadows are unremarkable. Thoracic lumbar spondylosis. Bowel gas pattern is nonobstructive. IMPRESSION: 1. Right renal pelvis calculus. U reterovesical stents in good position. 2. Significant retained stool in the colon. Final report electronically signed by: Lizbeth Pickard MD Signed by: LIZBETH PICKARD II, MD 02/26/19 0748 cc: ROBYN JEFF II,LIZBETH Fontenot MDBTZOFETQEQRT3221-25-20 13:29:[address] [address] Patient: RADHA VÁSQUEZ : 1960 Sex: M Address: [place] [address] Unit #: [id number] REQ SEQ #: [id number] Location: ED Room #: Ordering: ROBYN CUNHA Diagnosis: FLANK PAIN ---- ULTRASOUND RENAL WITH DOPPLER HISTORY: Flank pain. FINDINGS: Sonographic examination showed the kidneys to be normal in size, position and contour. The kidneys measured normal in length. There was no evidence of mass, calculus orhydronephrosis. Real-time color Doppler spectral analysis is performed. The peak systolic velocities and resistive indices are identified bilaterally. The renal aortic ratio is not obtained,as the aorta is obscured by bowel gas. Peak systolic velocities are within normal limits. Waveforms are within normal limits. IMPRESSION: Normal renal sonogram. No evidence of hydronephrosis. Limited renal Doppler due to the bowel obscuring the aorta, but the velocities and the waveforms are normal. Final report electronically signed by: Lizbeth Pickard MD Signed by: LIZBETH PICKARD II, MD 02/26/19 6888 cc: ROBYN JEFF II,LIZBETH Fontenot MDUrine Color 2019-02-26 11:50:00 Test Item Value Reference Range Comments Color of Urine by Auto (test code = 98838-6) RED Urine Ctwpfsdigh5137-79-86 11:50:00 Test Item Value Reference Range Comments Urine clarity by refractometry automated (test code = HAZY 86975-2) Urine Specific Netpaby3935-86-71 11:50:00 Test Item Value Reference Range Comments Specific gravity of Urine by Refractometry automated 1.013 1.005-1.030 (test code = 89442-5) Urine lK2729-89-22 11:50:00 Test Item Value Reference Range Comments Urine pH measurement by automated test strip (test 7.0 5.0-8.0 code = 14430-3) Urine Leukocyte Gbhlnwim7665-28-74 11:50:00 Test Item Value Reference Range Comments Urine leukocyte esterase detection by automated POSITIVE NEGATIVE test strip (test code = 09065-9) Urine Ztdngcz1863-65-54 11:50:00 Test Item Value Reference Range Comments Urine nitrite detection by automated test strip NEGATIVE NEGATIVE (test code = 44165-3) Urine Umamhwv8357-83-25 11:50:00 Test Item Value Reference Range Comments Urine protein detection by automated test strip (test 2+ NEG-TRACE code = 94853-0) Urine Glucose (UA)2019-02-26 11:50:00 Test Item Value Reference Range Comments Urine glucose detection by automated test strip NEGATIVE NEGATIVE (test code = 41838-7) Urine Bbkwecl4023-87-58 11:50:00 Test Item Value Reference Range Comments Urine ketone detection by automated test strip NEGATIVE N EGATIVE (test code = 23871-0) Urine Mijbgwpjiqeq6899-21-09 11:50:00 Test Item Value Reference Range Comments Urine urobilinogen measurement by automated test strip 8.0 <2.0 (mass/volume) (test code = 92826-7) Urine Ouqutkiwy0349-06-98 11:50:00 Test Item Value Reference Range Comments Urine bilirubin detection by automated test strip NEGATIVE NEGATIVE (test code = 09628-1) Urine Nwvvw9169-73-27 11:50:00 Test Item Value Reference Range Comments Urine erythrocytes detection by automated method (test 3+ NEGATIVE code = 60535-8) Urine Culture Heozrmyyw4549-63-39 11:50:00 Test Item Value Reference Range Comments UA + culture (test code = 52745-5) YES Urine VAF5798-26-70 11:50:00 Test Item Value Reference Range Comments RBC count ur auto (test code = 798-9) <20 0-2 Urine SZF8221-52-39 11:50:00 Test Item Value Reference Range Comments Automated leukocytes count in urine sediment 11-20 0-5 (number/area) (test code = 63446-5) Urine Xzxqshcg5623-72-95 11:50:00 Test Item Value Reference Range Comments Urine bacteria detection by automated method (test 1+ <1 code = 14996-3) Urine Hkfnj9776-53-64 11:50:00 Test Item Value Reference Range Comments Urine mucus detection by automated method (test code = MARY 08713-7) CAT WMJR3284-19-12 03:25:[address] [address] Patient: RADHA VÁSQUEZ : 1960 Sex: M Address: [address] [place] [address] [place] [address] Unit #: [id number] [facility] SEQ #: [id number] Location: ED Room #: Ordering: KEZIA ORO DO Diagnosis: KIDNEY STONES/BACK PAIN/URINATING BLOOD Clinical History: Bilateral flank pain, known ureteral stents, hematuria. Kidney stone, back pain, nausea Technique: Multidetector CT through abdomen and pelvis with IV contrast. Multiplanar reconstructionsperformed. Contrast: 119 cc Optiray 320 IV without incident. Comparison: Abdomen and pelvis CT 02/14/2019. Findings: Bilateral ureteral stents with proximal portions in renal pelvis and distal portions in bladder. Mild right hydronephrosis stable. No evidence of left hydronephrosis. 7 mm calculus right ureteropelvic junction adjacent to stent. No additional calculi identified. Cirrhotic liver. Cholecystectomy with borderline size common duct. Mild splenomegaly. Perisplenic varices consistent with portal hypertension with spontaneous splenorenal shunt. Mild olegario hepatis/portacaval and gastrohepatic ligament adenopathy measuring up to 15 mm in short axis diameter. Stomach, pancreas, adrenal glands normal. Mild diffuse bladder wall thickening. Mesh right inguinal herniorrhaphy. Mild skin induration adjacent to umbilicus. No evidence of bowel obstruction, bowel wall thickening, ascites, adenopathy, pneumoperitoneum. Apparent duodenal edema improved since priorexam. Borderline size right inferior hilar lymph nodes incompletely evaluated. Mild bibasilar partial atelectasis and intralobular septal thickening. Mild spondylosis thoracolumbar spine. Mildanterior wedging L1 vertebral body stable. Mild osteoarthritis bilateral SI joints. Impression: 1. Bilateral ureteral stents with 7 mm calculus right ureteropelvic junction and mild persistent right hydronephrosis unchanged despite presence of ureteral stent raising possibly of stent dysfunction. No evidence of left hydronephrosis. Mild diffuse bladder wall thickening. 2. Cholecystectomy with mild biliary prominence. Right mesh inguinal herniorrhaphy. 3. Cirrhosis with splenomegaly and perisplenic varices consistent with portal hypertension. 4. Mild upper abdominal adenopathy involving gastrohepatic ligament, olegario hepatis, portacaval regions-stable. Mild paraduodenal edema consistent with duodenitis and possibly pancreatitis improved since 02/14/2019. Final report electronically signed by: Arnold Arriaga MD Signed by: ARNOLD ARRIAGA MD 02/24/19 0321 cc: ARNOLD ARRIAGA MD, STEPHANIE CESARIOndte Blood Count 2019-02-24 01:53:00 Test Item Value Reference Range Comments Blood leukocytes automated count (number/volume) (test 6.7 3.6-11.1 code = 6690-2) Red Blood Dezyf7043-86-88 01:53:00 Test Item Value Reference Range Comments Blood erythrocytes automated count (number/volume) 3.87 4.27-5.49 (test code = 789-8) Cufuaoujfh5958-40-77 01:53:00 Test Item Value Reference Range Comments Blood hemoglobin measurement (mass/volume) (test code 13.0 12.9-16.1 = 718-7) Wlsmediwdr9685-41-18 01:53:00 Test Item Value Reference Range Comments Automated blood hematocrit (volume fraction) (test 38.0 37.7-46.5 code = 4544-3) Mean Corpuscular Eeturb0196-83-59 01:53:00 Test Item Value Reference Range Comments Automated erythrocyte mean corpuscular volume (test 98.2 79.3-94.8 code = 787-2) Mean Corpuscular Hbcrtqcxuh1271-56-01 01:53:00 Test Item Value Reference Range Comments Automated erythrocyte mean corpuscular hemoglobin 33.5 26.8-33.2 (mass per erythrocyte) (test code = 785-6) Mean Corpuscular Hemoglobin Tahifbs3019-18-83 01:53:00 Test Item Value Reference Range Comments Automated erythrocyte mean corpuscular hemoglobin 34.1 33.5-35.5 concentration measurement (mass/volume) (test code = 786-4) Red Cell Distribution Ikjou4007-94-40 01:53:00 Test Item Value Reference Range Comments Automated erythrocyte distribution width ratio (test 14.7 12.0-15.1 code = 788-0) Platelet Rpfot6966-92-81 01:53:00 Test Item Value Reference Range Comments Automated blood platelet count 32 165-353 C ALLED BY Samantha Robin at (count/volume) (test code = 0246 TO JUAN F ZAPATA RN AND 777-3) R/V. Platelet co unt verified by slide estimate. Mean Platelet Kkvkqx2845-35-16 01:53:00 Test Item Value Reference Range Comments Automated blood platelet mean volume measurement (test 8.9 7.5-10.6 code = 83162-8) Neutrophils (%) (Auto)2019-02-24 01:53:00 Test Item Value Reference Range Comments Automated blood neutrophil count as percentage of 63.8 43.2-71.5 total leukocytes (test code = 770-8) Lymphocytes (%) (Auto)2019-02-24 01:53:00 Test Item Value Reference Range Comments Automated blood lymphocyte count as percentage of 21.8 16.8-43.4 total leukocytes (test code = 736-9) Monocytes (%) (Auto)2019-02-24 01:53:00 Test Item Value Reference Range Comments Automated blood monocyte count as percentage of total 11.5 4.6-12.4 leukocytes (test code = 5905-5) Eosinophils (%) (Auto)2019-02-24 01:53:00 Test Item Value Reference Range Comments Automated blood eosinophil count as percentage of 2.6 0.7-7.8 total leukocytes (test code = 713-8) Basophils (%) (Auto)2019-02-24 01:53:00 Test Item Value Reference Range Comments Automated blood basophil count as percentage of total 0.3 0.2-1.2 leukocytes (test code = 706-2) Neutrophils # (Auto)2019-02-24 01:53:00 Test Item Value Reference Range Comments Blood neutrophils automated count (number/volume) 4.2 1.9-7.2 (test code = 751-8) Lymphocytes # (Auto)2019-02-24 01:53:00 Test Item Value Reference Range Comments Automated blood lymphocyte count (number/volume) (test 1.4 1.1-2.7 code = 731-0) Monocytes # (Auto)2019-02-24 01:53:00 Test Item Value Reference Range Comments Blood monocytes automated count (number/volume) (test 0.8 0.3-0.8 code = 742-7) Eosinophils # (Auto)2019-02-24 01:53:00 Test Item Value Reference Range Comments Automated blood eosinophil count (test code = 711-2) 0.2 0.0-0.5 Basophils # (Auto)2019-02-24 01:53:00 Test Item Value Reference Range Comments Automated blood basophil count (count/volume) (test 0.0 0.0-0.1 code = 704-7) Sodium Cldto4047-43-98 01:53:00 Test Item Value Reference Range Comments Sodium blood (test code = 023235537) 141 137-144 Potassium Joerm0343-02-33 01:53:00 Test Item Value Reference Range Comments Potassium blood (test code = 618789055) 3.5 3.1-5.1 Chloride Pqgro9901-18-12 01:53:00 Test Item Value Reference Range Comments Chloride blood (test code = 181248942) 111 101-110 Carbon Dioxide Ypalw6828-91-71 01:53:00 Test Item Value Reference Range Comments Carbon dioxide blood (test code = 79537098) 22 22-2 9 Glucose Yhscn9808-42-04 01:53:00 Test Item Value Reference Range Comments Glucose blood (test code = 85022896) 144 70-105 Blood Urea Liszadfn0088-20-75 01:53:00 Test Item Value Reference Range Comments BUN (test code = 009209125) 10.0 8.4-25.7 Glqequjxcs7180-62-25 01:53:00 Test Item Value Reference Range Comments Creatinine blood (test code = 253486174) 0.75 0.72-1. 25 Estimated Creatinine Clearance Dtad2830-52-16 01:53:00 Test Item Value Reference Range Comments Estimation of creatinine 127.89 PT Ht: 175.26cm, PT Wt: clearance (test code = 107.1KG 513688705) Anion Mnl5503-21-75 01:53:00 Test Item Value Reference Range Comments Anion gap measurement (test code = 16478313) 12 7-1 6 Calcium Yaxek6528-92-76 01:53:00 Test Item Value Reference Range Comments Calcium (test code = 13980385) 8.7 8.4-10.2 Total Zihgspxgq2583-41-26 01:53:00 Test Item Value Reference Range Comments Total bilirubin (test code = OKL8672) 1.3 0.1-1.2 Total Vwwmqoc5788-80-47 01:53:00 Test Item Value Reference Range Comments Total protein blood (test code = 2885-2) 5.5 6.0-8.3 Cbwvpid7936-72-12 01:53:00 Test Item Value Reference Range Comments Albumin (test code = EFE7499) 2.9 3.2-5.2 Pjfstawp9746-93-09 01:53:00 Test Item Value Reference Range Comments Plasma globulin measurement (mass/volume) (test code = 2.6 2.6-4.6 53717-2) Albumin/Globulin Zftzx6496-29-58 01:53:00 Test Item Value Reference Range Comments Albumin to globulin ratio (test code = 104173) 1.1 1 .1-2.5 Aspartate Amino Transf (AST/SGOT)2019-02-24 01:53:00 Test Item Value Reference Range Comments AST (SGOT) ser/plas (test code = 67183338) 36 5-34 Alkaline Tkhvqvymhzd3445-17-02 01:53:00 Test Item Value Reference Range Comments Alkaline phosphatase (test code = 32218578) 93 40-1 50 Alanine Aminotransferase (ALT/SGPT)2019-02-24 01:53:00 Test Item Value Reference Range Comments ALT (SGPT) ser/plas (test code = 1742-6) 32 0-55 Pholyl9373-33-59 01:53:00 Test Item Value Reference Range Comments Lipase ser/plas (test code = 3040-3) 142 7-78 Urine Pfnpl2255-87-33 01:10:00 Test Item Value Reference Range Comments Color of Urine by Auto (test code = 33818-3) DARK RED Urine Bijvwpiyxl0241-21-58 01:10:00 Test Item Value Reference Range Comments Urine clarity by refractometry automated (test code = CLOUDY 92588-1) Urine Specific Wuiidhs4705-74-98 01:10:00 Test Item Value Reference Range Comments Specific gravity of Urine by Refractometry automated 1.025 1.005-1.030 (test code = 23319-8) Urine hH2642-47-61 01:10:00 Test Item Value Reference Range Comments Urine pH measurement by automated test strip (test 6.0 5.0-8.0 code = 96086-8) Urine Leukocyte Proraccn1061-77-60 01:10:00 Test Item Value Reference Range Comments Urine leukocyte esterase detection by automated POSITIVE NEGATIVE test strip (test code = 05864-1) Urine Pvuunbo0437-76-81 01:10:00 Test Item Value Reference Range Comments Urine nitrite detection by automated test strip NEGATIVE NEGATIVE (test code = 45265-5) Urine Hzhwfvv4915-61-24 01:10:00 Test Item Value Reference Range Comments Urine protein detection by automated test strip (test 2+ NEG-TRACE code = 86027-2) Urine Glucose (UA)2019-02-24 01:10:00 Test Item Value Reference Range Comments Urine glucose detection by automated test strip (test TRACE NEGATIVE code = 66070-9) Urine Skgtslc1481-35-26 01:10:00 Test Item Value Reference Range Comments Urine ketone detection by automated test strip (test TRACE NEGATIVE code = 63096-7) Urine Ahptpumzkeyf8606-82-85 01:10:00 Test Item Value Reference Range Comments Urine urobilinogen measurement by automated test strip >2.0 <2.0 (mass/volume) (test code = 70594-2) Urine Qjfhjeypm0508-45-85 01:10:00 Test Item Value Reference Range Comments Urine bilirubin detection by automated test strip NEGATIVE NEGATIVE (test code = 78015-0) Urine Hjnhv1169-45-40 01:10:00 Test Item Value Reference Range Comments Urine erythrocytes detection by automated method (test 3+ NEGATIVE code = 43220-3) Urine Culture Wlyomgtjr8595-36-31 01:10:00 Test Item Value Reference Range Comments UA + culture (test code = 31703-9) YES Urine NFE6779-43-03 01:10:00 Test Item Value Reference Range Comments RBC count ur auto (test code = 798-9) <20 0-2 Urine JMF4313-50-90 01:10:00 Test Item Value Reference Range Comments Automated leukocytes count in urine sediment <100 0-5 (number/area) (test code = 08818-9) Urine Ttqruijn5747-94-98 01:10:00 Test Item Value Reference Range Comments Urine bacteria detection by automated method (test 2+ <1 code = 05725-9) Urine Wxlwl2111-63-72 01:10:00 Test Item Value Reference Range Comments Urine mucus detection by automated method (test code = LARGE 67497-9) Urine Yeast (Budding)2019-02-24 01:10:00 Test Item Value Reference Range Comments Yeast.budding detection in urine sediment (test code = 2+ NONE SEEN 61719-8) CAT RUGU0469-89-98 22:44:[address] [address] Patient: RADHA VÁSQUEZ : 1960 Sex: M Address: [address] [place] [address] [place] [address] Unit #: [id number] REQ SEQ #: [id number] Location: [facility] Room #: Ordering: MATEO MCCARTHY PA-C Diagnosis: BACK PAIN/ .HX KIDNEY STONES Clinical History: Flank pain. Recent stent placement. Hematuria. Technique: Helical multidetector CT of the abdomen and pelvis without IV contrast. Multiplanar reformatted images were provided. Comparison: 01/30/2019 Findings: Minimal interstitial prominence within the lung bases is unchanged. Nodular liver consistent with cirrhosis. No focal liver mass. Cholecystectomy. The pancreas is unremarkable. Splenomegaly. Prominent varices. No suspicious adrenal mass. Bilateral nephroureteral stents have been placed. Small calculus seen previously within the left ureter is no longer visualized. No signif icant left hydronephrosis. A right-sided stent has been placed. Right-sided calculus seen previously within the upper renal pelvis appears to have have migrated to the UPJ near the proximal aspectof the stent and measures 6 mm. There is minimal dilatation of the right renal collecting system which is increased since last exam. There is perinephric stranding bilaterally and periureteral stranding. Distal stents extend into the bladder which is unremarkable. The abdominal aorta isatherosclerotic. No suspicious upper abdominal adenopathy. No evidence of small bowel wall thickening or obstruction. No focal colonic abnormality is identified. Evidence of right inguinal herniarepair. Thoracolumbar spondylosis. Mild L1 compression fracture. IMPRESSION: 1. Interval placement of bilateral nephroureteral stents. Punctate right-sided calculus seen previously no longer visualized. 6 mm right renal calculus located at the level of the UPJ. Right hydronephrosis slightly increasing since last exam. 2. Minimal bibasilar interstitial prominence unchanged. 3. Findings consistent with cirrhosis and portal hypertension with splenomegaly and varices. 4. Cholecystectomy. Final report electronically signed by: Gi Rivera MD Signed by: GI RIVERA MD 02/14/19 9122 cc: MATEO MCCARTHY PA-C, HEATHER M MDWhite Blood Zeimr8072-39-01 20:07:00 Test Item Value Reference Range Comments Blood leukocytes automated count (number/volume) (test 6.4 3.6-11.1 code = 6690-2) Red Blood Wqhad8458-83-83 20:07:00 Test Item Value Reference Range Comments Blood erythrocytes automated count (number/volume) 4.25 4.27-5.49 (test code = 789-8) Ligstmbivo7362-91-93 20:07:00 Test Item Value Reference Range Comments Blood hemoglobin measurement (mass/volume) (test code 14.0 12.9-16.1 = 718-7) Wyonjwhlor8591-92-84 20:07:00 Test Item Value Reference Range Comments Automated blood hematocrit (volume fraction) (test 42.1 37.7-46.5 code = 4544-3) Mean Corpuscular Hfzjqq3375-09-42 20:07:00 Test Item Value Reference Range Comments Automated erythrocyte mean corpuscular volume (test 99.2 79.3-94.8 code = 787-2) Mean Corpuscular Hhvxfmlhis4385-45-92 20:07:00 Test Item Value Reference Range Comments Automated erythrocyte mean corpuscular hemoglobin 32.9 26.8-33.2 (mass per erythrocyte) (test code = 785-6) Mean Corpuscular Hemoglobin Tmrswgx4509-52-21 20:07:00 Test Item Value Reference Range Comments Automated erythrocyte mean corpuscular hemoglobin 33.2 33.5-35.5 concentration measurement (mass/volume) (test code = 786-4) Red Cell Distribution Bxsyp8607-33-07 20:07:00 Test Item Value Reference Range Comments Automated erythrocyte distribution width ratio (test 15.2 12.0-15.1 code = 788-0) Platelet Oyjgk1408-09-90 20:07:00 Test Item Value Reference Range Comments Automated blood platelet count 47 165-353 C ALLED BY Mare Graham (count/volume) (test code = at 2 045 TO NICANOR GROVER RN AND 777-3) R/V. Platelet co unt verified by slide estimate. Mean Platelet Oblkcw4842-01-85 20:07:00 Test Item Value Reference Range Comments Automated blood platelet mean volume measurement (test 9.6 7.5-10.6 code = 02842-4) Neutrophils (%) (Auto)2019-02-14 20:07:00 Test Item Value Reference Range Comments Automated blood neutrophil count as percentage of 67.5 43.2-71.5 total leukocytes (test code = 770-8) Lymphocytes (%) (Auto)2019-02-14 20:07:00 Test Item Value Reference Range Comments Automated blood lymphocyte count as percentage of 20.8 16.8-43.4 total leukocytes (test code = 736-9) Monocytes (%) (Auto)2019-02-14 20:07:00 Test Item Value Reference Range Comments Automated blood monocyte count as percentage of total 9.3 4.6-12.4 leukocytes (test code = 5905-5) Eosinophils (%) (Auto)2019-02-14 20:07:00 Test Item Value Reference Range Comments Automated blood eosinophil count as percentage of 2.3 0.7-7.8 total leukocytes (test code = 713-8) Basophils (%) (Auto)2019-02-14 20:07:00 Test Item Value Reference Range Comments Automated blood basophil count as percentage of total 0.1 0.2-1.2 leukocytes (test code = 706-2) Neutrophils # (Auto)2019-02-14 20:07:00 Test Item Value Reference Range Comments Blood neutrophils automated count (number/volume) 4.3 1.9-7.2 (test code = 751-8) Lymphocytes # (Auto)2019-02-14 20:07:00 Test Item Value Reference Range Comments Automated blood lymphocyte count (number/volume) (test 1.3 1.1-2.7 code = 731-0) Monocytes # (Auto)2019-02-14 20:07:00 Test Item Value Reference Range Comments Blood monocytes automated count (number/volume) (test 0.6 0.3-0.8 code = 742-7) Eosinophils # (Auto)2019-02-14 20:07:00 Test Item Value Reference Range Comments Automated blood eosinophil count (test code = 711-2) 0.1 0.0-0.5 Basophils # (Auto)2019-02-14 20:07:00 Test Item Value Reference Range Comments Automated blood basophil count (count/volume) (test 0.0 0.0-0.1 code = 704-7) Sodium Eqtev1358-46-64 20:07:00 Test Item Value Reference Range Comments Sodium blood (test code = 239747418) 143 137-144 Potassium Pvxsl4544-68-65 20:07:00 Test Item Value Reference Range Comments Potassium blood (test code = 071081250) 4.2 3.1-5.1 Chloride Yhuvh1232-35-45 20:07:00 Test Item Value Reference Range Comments Chloride blood (test code = 050745558) 111 101-110 Carbon Dioxide Bccpj2545-37-46 20:07:00 Test Item Value Reference Range Comments Carbon dioxide blood (test code = 79014588) 24 22-2 9 Glucose Cqstc8574-78-92 20:07:00 Test Item Value Reference Range Comments Glucose blood (test code = 03527322) 84 70-105 Blood Urea Oamkmlzv2747-69-42 20:07:00 Test Item Value Reference Range Comments BUN (test code = 740876038) 14.0 8.4-25.7 Royaxrexmh0047-17-55 20:07:00 Test Item Value Reference Range Comments Creatinine blood (test code = 634572531) 0.78 0.72-1. 25 Estimated Creatinine Clearance Tdow0207-31-92 20:07:00 Test Item Value Reference Range Comments Estimation of creatinine 124.07 PT Ht: 175.26cm, PT Wt: 109KG clearance (test code = 942525731) Anion Plb2992-36-45 20:07:00 Test Item Value Reference Range Comments Anion gap measurement (test code = 04958014) 12 7-1 6 Calcium Adqkr2573-63-37 20:07:00 Test Item Value Reference Range Comments Calcium (test code = 72611686) 8.9 8.4-10.2 Urine Dsrlp9501-91-75 20:00:00 Test Item Value Reference Range Comments Urine color determination (test code = 5778-6) DARK RED Urine Jqbktxochv8738-85-17 20:00:00 Test Item Value Reference Range Comments Urine clarity determination (test code = 80380-1) CLOUDY Urine Specific Bhbfwgm9387-88-71 20:00:00 Test Item Value Reference Range Comments Specific gravity of Urine by Refractometry automated 1.005 1.005-1.030 (test code = 80885-5) Urine eE1535-01-86 20:00:00 Test Item Value Reference Range Comments Urine pH measurement by automated test strip (test 7.5 5.0-8.0 code = 84021-0) Urine Leukocyte Ejceppmk2500-99-91 20:00:00 Test Item Value Reference Range Comments Urine leukocyte esterase detection by automated POSITIVE NEGATIVE test strip (test code = 97484-9) Urine Bzlvsor5762-49-88 20:00:00 Test Item Value Reference Range Comments Urine nitrite detection by automated test strip NEGATIVE NEGATIVE (test code = 90528-8) Urine Wrlfnab6386-39-89 20:00:00 Test Item Value Reference Range Comments Urine protein detection by automated test strip (test 2+ NEG-TRACE code = 93674-0) Urine Glucose (UA)2019-02-14 20:00:00 Test Item Value Reference Range Comments Urine glucose detection by automated test strip NEGATIVE NEGATIVE (test code = 34588-6) Urine Epliygm6993-97-19 20:00:00 Test Item Value Reference Range Comments Urine ketone detection by automated test strip NEGATIVE N EGATIVE (test code = 72082-8) Urine Zuwccnghzgvt5043-30-86 20:00:00 Test Item Value Reference Range Comments Urine urobilinogen measurement by automated test strip 4.0 <2.0 (mass/volume) (test code = 56472-5) Urine Fbczahkjm3707-24-74 20:00:00 Test Item Value Reference Range Comments Urine bilirubin detection by automated test strip NEGATIVE NEGATIVE (test code = 99261-3) Urine Tgxhc1139-77-10 20:00:00 Test Item Value Reference Range Comments Urine erythrocytes detection by automated method (test 3+ NEGATIVE code = 54450-1) Urine Culture Uwkkjvwdh6569-74-17 20:00:00 Test Item Value Reference Range Comments UA + culture (test code = 12722-0) YES Urine BJF2836-28-03 20:00:00 Test Item Value Reference Range Comments RBC count ur auto (test code = 798-9) <20 0-2 Urine QIH9748-29-66 20:00:00 Test Item Value Reference Range Comments Automated leukocytes count in urine sediment 11-20 0-5 (number/area) (test code = 03415-4) CAT ZRCH2348-43-03 10:40:[address] [address] Patient: RADHA VÁSQUEZ : 1960 Sex: M Address: [place] [address] [facility] #: [id number] Unit #: [id number] SEQ #: [id number] Location: ED Room #: Ordering: ROBINSON MACIEL DO Diagnosis: KIDNEY STONE --- CT abdomen and pelvis without contrast 01/30/2019. INDICATION: Flank pain kidney stone. Left-sided pain with history of stones. TECHNIQUE: Contiguous axial images were obtained through the abdomen and pelvis without contrast. Reformatted imaging obtained. COMPARISON: 01/25/2019. FINDINGS: Lung bases show mild prominent hilar or mediastinal lymph nodes, partially imaged. The spleen is enlarged at 14.4 cm in length. Adrenal glands in place. Pancreas shows nonspecific peripancreatic edema with generalized third spacing. Cholecystectomy. Cirrhotic appearing liver with collateral vessels and splenorenal shunt in the upper abdomen. Right kidney shows an 8 mm stone midportion without hydronephrosis or ureteral stone. Punctate stone upper pole right kidney as well. Left kidney shows mild collecting system dilatation with a 4 mm stone proximal left ureter. Prostate and bladder in place. Status post right inguinal hernia repair. Moderate stool in the colon. Mild diverticulosis. Mild mesenteric edema could be seen with third spacing and cirrhosis. Olegario hepatis lymphadenopathy, possibly reactive. Mild prominent small bowel loops. Enteritis is not excluded. Bones: Degenerative change noted. IMPRESSION: 1. 4 mm stone proximal left ureter with mild hydronephrosis associated. This is similar to the prior January 25, [address] CT. 2. Redemonstration of cirrhosis with portal hypertension and splenomegaly. Olegario hepatis lymphadenopathy may be reactive. Mild third spacing and mesenteric edema could be related to the cirrhosis potentially. Contributory pancreatitis or duodenitis not excluded for example. Regional small bowel enteritis also difficult to exclude as above. 3. Nonobstructing 8 mm right renal stone and punctate stone upper pole right kidney as well. 4. Otherwise as above. Overall limited without contrast. Final report electronically signed by: Silver Caraballo MD Signed by: NEO ACRABALLO MD 01/30/19 1035 cc: ROBINSON MACIEL ANTHONY G MDUrine Kjgan7651-42-60 10:15:00 Test Item Value Reference Range Comments Urine color determination (test code = 5778-6) ORANGE Urine Giblbpwxpv9717-83-52 10:15:00 Test Item Value Reference Range Comments Urine clarity determination (test code = 41040-1) HAZY Urine Specific Tpxawoa2775-99-14 10:15:00 Test Item Value Reference Range Comments Specific gravity of Urine by Refractometry automated 1.022 1.005-1.030 (test code = 09251-0) Urine cP4823-23-74 10:15:00 Test Item Value Reference Range Comments Urine pH measurement by automated test strip (test 5.5 5.0-8.0 code = 18277-2) Urine Leukocyte Rqtemutv8854-42-84 10:15:00 Test Item Value Reference Range Comments Urine leukocyte esterase detection by automated POSITIVE NEGATIVE test strip (test code = 22682-9) Urine Ruznnux1401-29-64 10:15:00 Test Item Value Reference Range Comments Urine nitrite detection by automated test strip NEGATIVE NEGATIVE (test code = 51084-6) Urine Xwpnhmx3569-97-85 10:15:00 Test Item Value Reference Range Comments Urine protein detection by automated test strip (test 1+ NEG-TRACE code = 71465-3) Urine Glucose (UA)2019-01-30 10:15:00 Test Item Value Reference Range Comments Urine glucose detection by automated test strip NEGATIVE NEGATIVE (test code = 39988-3) Urine Dxyfvqm7899-01-40 10:15:00 Test Item Value Reference Range Comments Urine ketone detection by automated test strip (test TRACE NEGATIVE code = 20871-7) Urine Tzxzqdcryjyd5360-70-85 10:15:00 Test Item Value Reference Range Comments Urine urobilinogen measurement by automated test strip 4.0 <2.0 (mass/volume) (test code = 00057-9) Urine Lyggjafjh9601-14-53 10:15:00 Test Item Value Reference Range Comments Urine bilirubin detection by automated test strip 1+ NEGATIVE (test code = 91208-0) Urine Owzhq2275-43-39 10:15:00 Test Item Value Reference Range Comments Urine erythrocytes detection by automated method (test 2+ NEGATIVE code = 38228-5) Urine Culture Wydhxlxds6787-33-33 10:15:00 Test Item Value Reference Range Comments UA + culture (test code = 66050-5) YES Urine Squamous Epithelial Oihjw8625-01-77 10:15:00 Test Item Value Reference Range Comments Urine squamous epithelial cells detection by automated 0-5 0-5 method (test code = 00625-5) Urine XYD3923-94-17 10:15:00 Test Item Value Reference Range Comments RBC count ur auto (test code = 798-9) <20 0-2 Urine KCL5961-37-12 10:15:00 Test Item Value Reference Range Comments Automated leukocytes count in urine sediment 21-50 0-5 (number/area) (test code = 62393-0) Urine Mavsiwar0802-00-51 10:15:00 Test Item Value Reference Range Comments Urine bacteria detection by automated method (test 1+ <1 code = 82944-4) Urine Ggemk7686-59-41 10:15:00 Test Item Value Reference Range Comments Urine mucus detection by automated method (test code = LARGE 80060-9) White Blood Ocyfg6253-91-18 09:58:00 Test Item Value Reference Range Comments Blood leukocytes automated count (number/volume) (test 4.2 3.6-11.1 code = 6690-2) Red Blood Ecwox6726-00-16 09:58:00 Test Item Value Reference Range Comments Blood erythrocytes automated count (number/volume) 3.79 4.27-5.49 (test code = 789-8) Uvadduepbz0860-79-86 09:58:00 Test Item Value Reference Range Comments Blood hemoglobin measurement (mass/volume) (test code 12.9 12.9-16.1 = 718-7) Yxoddloepa2771-48-96 09:58:00 Test Item Value Reference Range Comments Automated blood hematocrit (volume fraction) (test 36.7 37.7-46.5 code = 4544-3) Mean Corpuscular Jahpyz7146-94-83 09:58:00 Test Item Value Reference Range Comments Automated erythrocyte mean corpuscular volume (test 96.8 79.3-94.8 code = 787-2) Mean Corpuscular Prbndghtdo9614-85-11 09:58:00 Test Item Value Reference Range Comments Automated erythrocyte mean corpuscular hemoglobin 34.2 26.8-33.2 (mass per erythrocyte) (test code = 785-6) Mean Corpuscular Hemoglobin Vpdwjca3129-92-21 09:58:00 Test Item Value Reference Range Comments Automated erythrocyte mean corpuscular hemoglobin 35.3 33.5-35.5 concentration measurement (mass/volume) (test code = 786-4) Red Cell Distribution Hbixx8733-77-96 09:58:00 Test Item Value Reference Range Comments Automated erythrocyte distribution width ratio (test 14.8 12.0-15.1 code = 788-0) Platelet Bynqn2952-25-74 09:58:00 Test Item Value Reference Range Comments Automated blood platelet count (count/volume) (test 51 165-353 code = 777-3) Mean Platelet Uylnzn0318-75-34 09:58:00 Test Item Value Reference Range Comments Automated blood platelet mean volume measurement (test 8.6 7.5-10.6 code = 58848-3) Neutrophils (%) (Auto)2019-01-30 09:58:00 Test Item Value Reference Range Comments Automated blood neutrophil count as percentage of 68.2 43.2-71.5 total leukocytes (test code = 770-8) Lymphocytes (%) (Auto)2019-01-30 09:58:00 Test Item Value Reference Range Comments Automated blood lymphocyte count as percentage of 17.8 16.8-43.4 total leukocytes (test code = 736-9) Monocytes (%) (Auto)2019-01-30 09:58:00 Test Item Value Reference Range Comments Automated blood monocyte count as percentage of total 12.6 4.6-12.4 leukocytes (test code = 5905-5) Eosinophils (%) (Auto)2019-01-30 09:58:00 Test Item Value Reference Range Comments Automated blood eosinophil count as percentage of 1.1 0.7-7.8 total leukocytes (test code = 713-8) Basophils (%) (Auto)2019-01-30 09:58:00 Test Item Value Reference Range Comments Automated blood basophil count as percentage of total 0.3 0.2-1.2 leukocytes (test code = 706-2) Neutrophils # (Auto)2019-01-30 09:58:00 Test Item Value Reference Range Comments Blood neutrophils automated count (number/volume) 2.9 1.9-7.2 (test code = 751-8) Lymphocytes # (Auto)2019-01-30 09:58:00 Test Item Value Reference Range Comments Automated blood lymphocyte count (number/volume) (test 0.7 1.1-2.7 code = 731-0) Monocytes # (Auto)2019-01-30 09:58:00 Test Item Value Reference Range Comments Blood monocytes automated count (number/volume) (test 0.5 0.3-0.8 code = 742-7) Eosinophils # (Auto)2019-01-30 09:58:00 Test Item Value Reference Range Comments Automated blood eosinophil count (test code = 711-2) 0.0 0.0-0.5 Basophils # (Auto)2019-01-30 09:58:00 Test Item Value Reference Range Comments Automated blood basophil count (count/volume) (test 0.0 0.0-0.1 code = 704-7) Sodium Kvczo2019-66-53 09:58:00 Test Item Value Reference Range Comments Sodium blood (test code = 361906568) 142 137-144 Potassium Ausrz2420-46-22 09:58:00 Test Item Value Reference Range Comments Potassium blood (test code = 602704610) 4.0 3.1-5.1 Chloride Hgrid3797-07-18 09:58:00 Test Item Value Reference Range Comments Chloride blood (test code = 485973063) 112 101-110 Carbon Dioxide Cwims9994-30-19 09:58:00 Test Item Value Reference Range Comments Carbon dioxide blood (test code = 82721037) 21 22-2 9 Glucose Nmrxp2181-50-36 09:58:00 Test Item Value Reference Range Comments Glucose blood (test code = 58380620) 138 70-105 Blood Urea Xuxkvfrk1046-61-79 09:58:00 Test Item Value Reference Range Comments BUN (test code = 721886903) 15.0 8.4-25.7 Etnwvauwcl1706-05-30 09:58:00 Test Item Value Reference Range Comments Creatinine blood (test code = 903534071) 0.95 0.72-1. 25 Estimated Creatinine Clearance Serl1989-02-11 09:58:00 Test Item Value Reference Range Comments Estimation of creatinine 101.58 PT Ht: 175.26cm, PT Wt: clearance (test code = 108.4KG 916266240) Anion Knq6296-90-06 09:58:00 Test Item Value Reference Range Comments Anion gap measurement (test code = 74263514) 13 7-1 6 Calcium Baxic1463-82-09 09:58:00 Test Item Value Reference Range Comments Calcium (test code = 01122161) 8.8 8.4-10.2 Total Zkbfyzvao8501-61-03 09:58:00 Test Item Value Reference Range Comments Total bilirubin (test code = FVM7737) 1.3 0.1-1.2 Total Mbvafhf9618-93-02 09:58:00 Test Item Value Reference Range Comments Total protein blood (test code = 2885-2) 5.7 6.0-8.3 Okdytbk7236-13-90 09:58:00 Test Item Value Reference Range Comments Albumin (test code = NQA3674) 3.1 3.2-5.2 Yrpnrwhl4109-90-28 09:58:00 Test Item Value Reference Range Comments Plasma globulin measurement (mass/volume) (test code = 2.6 2.6-4.6 60292-0) Albumin/Globulin Budlb2101-53-14 09:58:00 Test Item Value Reference Range Comments Albumin to globulin ratio (test code = 485217) 1.2 1 .1-2.5 Aspartate Amino Transf (AST/SGOT)2019-01-30 09:58:00 Test Item Value Reference Range Comments AST (SGOT) ser/plas (test code = 04667878) 34 5-34 Alkaline Ufosxrvamrg9516-39-82 09:58:00 Test Item Value Reference Range Comments Alkaline phosphatase (test code = 96911436) 109 40-1 50 Alanine Aminotransferase (ALT/SGPT)2019-01-30 09:58:00 Test Item Value Reference Range Comments ALT (SGPT) ser/plas (test code = 1742-6) 31 0-55 White Blood Vrgtu8337-90-16 01:11:00 Test Item Value Reference Range Comments Blood leukocytes automated count (number/volume) (test 4.8 3.6-11.1 code = 6690-2) Red Blood Zhfht8944-24-76 01:11:00 Test Item Value Reference Range Comments Blood erythrocytes automated count (number/volume) 3.82 4.27-5.49 (test code = 789-8) Whtstnwztv2809-43-37 01:11:00 Test Item Value Reference Range Comments Blood hemoglobin measurement (mass/volume) (test code 12.9 12.9-16.1 = 718-7) Kpwfweivbf9648-66-70 01:11:00 Test Item Value Reference Range Comments Automated blood hematocrit (volume fraction) (test 37.0 37.7-46.5 code = 4544-3) Mean Corpuscular Ffljfa6177-51-01 01:11:00 Test Item Value Reference Range Comments Automated erythrocyte mean corpuscular volume (test 97.0 79.3-94.8 code = 787-2) Mean Corpuscular Vjsmriqvzy6790-56-34 01:11:00 Test Item Value Reference Range Comments Automated erythrocyte mean corpuscular hemoglobin 33.7 26.8-33.2 (mass per erythrocyte) (test code = 785-6) Mean Corpuscular Hemoglobin Rbjetrx9442-10-26 01:11:00 Test Item Value Reference Range Comments Automated erythrocyte mean corpuscular hemoglobin 34.7 33.5-35.5 concentration measurement (mass/volume) (test code = 786-4) Red Cell Distribution Rjqju3467-18-80 01:11:00 Test Item Value Reference Range Comments Automated erythrocyte distribution width ratio (test 15.0 12.0-15.1 code = 788-0) Platelet Jxlwr8630-40-91 01:11:00 Test Item Value Reference Range Comments Automated blood platelet count 50 165-353 [ ] CALLED BY Edda Nichols at (count/volume) (test code = 0126 TO [] AND R/V. 777-3) Mean Platelet Bxvpfk4453-34-36 01:11:00 Test Item Value Reference Range Comments Automated blood platelet mean volume measurement (test 9.4 7.5-10.6 code = 93328-0) Neutrophils (%) (Auto)2019-01-30 01:11:00 Test Item Value Reference Range Comments Automated blood neutrophil count as percentage of 61.2 43.2-71.5 total leukocytes (test code = 770-8) Lymphocytes (%) (Auto)2019-01-30 01:11:00 Test Item Value Reference Range Comments Automated blood lymphocyte count as percentage of 23.1 16.8-43.4 total leukocytes (test code = 736-9) Monocytes (%) (Auto)2019-01-30 01:11:00 Test Item Value Reference Range Comments Automated blood monocyte count as percentage of total 13.5 4.6-12.4 leukocytes (test code = 5905-5) Eosinophils (%) (Auto)2019-01-30 01:11:00 Test Item Value Reference Range Comments Automated blood eosinophil count as percentage of 1.8 0.7-7.8 total leukocytes (test code = 713-8) Basophils (%) (Auto)2019-01-30 01:11:00 Test Item Value Reference Range Comments Automated blood basophil count as percentage of total 0.4 0.2-1.2 leukocytes (test code = 706-2) Neutrophils # (Auto)2019-01-30 01:11:00 Test Item Value Reference Range Comments Blood neutrophils automated count (number/volume) 2.9 1.9-7.2 (test code = 751-8) Lymphocytes # (Auto)2019-01-30 01:11:00 Test Item Value Reference Range Comments Automated blood lymphocyte count (number/volume) (test 1.1 1.1-2.7 code = 731-0) Monocytes # (Auto)2019-01-30 01:11:00 Test Item Value Reference Range Comments Blood monocytes automated count (number/volume) (test 0.7 0.3-0.8 code = 742-7) Eosinophils # (Auto)2019-01-30 01:11:00 Test Item Value Reference Range Comments Automated blood eosinophil count (test code = 711-2) 0.1 0.0-0.5 Basophils # (Auto)2019-01-30 01:11:00 Test Item Value Reference Range Comments Automated blood basophil count (count/volume) (test 0.0 0.0-0.1 code = 704-7) Sodium Ymnqf4123-19-23 01:11:00 Test Item Value Reference Range Comments Sodium blood (test code = 530071770) 144 137-144 Potassium Ncmol8000-38-67 01:11:00 Test Item Value Reference Range Comments Potassium blood (test code = 624345458) 3.8 3.1-5.1 Chloride Qbusm8023-08-03 01:11:00 Test Item Value Reference Range Comments Chloride blood (test code = 038688279) 112 101-110 Carbon Dioxide Ojrcv4513-00-67 01:11:00 Test Item Value Reference Range Comments Carbon dioxide blood (test code = 57830193) 25 22-2 9 Glucose Nxfnu6125-03-77 01:11:00 Test Item Value Reference Range Comments Glucose blood (test code = 22416430) 89 70-105 Blood Urea Zkflswoe9738-88-72 01:11:00 Test Item Value Reference Range Comments BUN (test code = 961500470) 10.0 8.4-25.7 Ldbvgiodvg5299-35-89 01:11:00 Test Item Value Reference Range Comments Creatinine blood (test code = 626036319) 0.78 0.72-1. 25 Estimated Creatinine Clearance Flyw2194-92-50 01:11:00 Test Item Value Reference Range Comments Estimation of creatinine 123.72 PT Ht: 175.26cm, PT Wt: clearance (test code = 108.4KG 311566353) Anion Qbo6863-61-01 01:11:00 Test Item Value Reference Range Comments Anion gap measurement (test code = 97531813) 11 7-1 6 Calcium Acnlz4958-46-47 01:11:00 Test Item Value Reference Range Comments Calcium (test code = 71284675) 9.1 8.4-10.2 Urine Klhvp9027-71-78 00:30:00 Test Item Value Reference Range Comments Urine color determination (test code = 5778-6) YELLOW Urine Rszvbzuwdf6441-65-84 00:30:00 Test Item Value Reference Range Comments Urine clarity determination (test code = 97356-4) CLEAR Urine Specific Coixqxs8983-58-20 00:30:00 Test Item Value Reference Range Comments Specific gravity of Urine by Refractometry automated 1.009 1.005-1.030 (test code = 80313-6) Urine dV2206-72-10 00:30:00 Test Item Value Reference Range Comments Urine pH measurement by automated test strip (test 7.0 5.0-8.0 code = 15037-7) Urine Leukocyte Gguekkvy5762-88-54 00:30:00 Test Item Value Reference Range Comments Urine leukocyte esterase detection by automated test TRACE NEGATIVE strip (test code = 98209-9) Urine Opbxmoj9231-89-62 00:30:00 Test Item Value Reference Range Comments Urine nitrite detection by automated test strip NEGATIVE NEGATIVE (test code = 61362-7) Urine Hfhgnsq9919-37-12 00:30:00 Test Item Value Reference Range Comments Urine protein detection by automated test strip NEGATIVE NEG-TRACE (test code = 34516-2) Urine Glucose (UA)2019-01-30 00:30:00 Test Item Value Reference Range Comments Urine glucose detection by automated test strip NEGATIVE NEGATIVE (test code = 67734-1) Urine Dafmcqv9437-34-08 00:30:00 Test Item Value Reference Range Comments Urine ketone detection by automated test strip NEGATIVE N EGATIVE (test code = 89062-1) Urine Zhzxdocivcmr1131-39-89 00:30:00 Test Item Value Reference Range Comments Urine urobilinogen measurement by automated test strip 2.0 <2.0 (mass/volume) (test code = 79234-1) Urine Mfghncvsm2941-73-04 00:30:00 Test Item Value Reference Range Comments Urine bilirubin detection by automated test strip NEGATIVE NEGATIVE (test code = 77835-6) Urine Apofz8477-92-47 00:30:00 Test Item Value Reference Range Comments Urine erythrocytes detection by automated method (test 2+ NEGATIVE code = 97340-0) Urine Culture Dtvjmgxhl3210-72-67 00:30:00 Test Item Value Reference Range Comments UA + culture (test code = NO Urine Culture was not indicated. 16125-2) Urine WBV9004-10-03 00:30:00 Test Item Value Reference Range Comments RBC count ur auto (test code = 798-9) <20 0-2 Urine SDD1925-19-47 00:30:00 Test Item Value Reference Range Comments Automated leukocytes count in urine sediment 0-5 0-5 (number/area) (test code = 70772-0) Urine Enqiv1576-37-11 00:30:00 Test Item Value Reference Range Comments Urine mucus detection by automated method (test code = MARY 25618-6) CAT GYGR5226-98-89 17:29:[address] [address] Patient: RADHA VÁSQUEZ : 1960 Sex: M Address: [address] [place] [address] [place] [address] Unit #: [id number] OLVIN SEQ #: [id number] Location: [facility] [place] Room #: Ordering: DEIRDRE GARCIA PA-C Diagnosis: POSS KIDNEY STONE -------- CT ABD PELV WO (NO ORAL OR IV) Clinical Information: Left flank pain and hematuria. Kidney stones. Comparison: CT 01/22/2019 TECHNIQUE: Transaxial CT scanning was performed from the lung bases to pubic symphysis without contrast, renal stone protocol. Coronal and sagittal reformatted images were acquired. FINDINGS: 3 mm calculus in the proximal left ureter (series 5 image 70). This calculus has progressed only about 3 cm since the 01/22/2019 CT previously at the left UPJ. There is now mild left hyd ronephrosis new compared to 01/22/2019. No additional ureteric calculi or urinary bladder calculi. 8 mm nonobstructing calculus in the upper pole of the right kidney and a 2 mm nonobstructing calculus in the upper pole of the right kidney. There is no right hydronephrosis. The urinary bladder is unremarkable. There is no evidence for urinary bladder wall thickening. Prostate gland and vesicles are unremarkable. Minimal atelectasis lung bases. No pericardial effusion or pleural effusions. Again seen mildly nodular appearance of the liver consistent with cirrhosis. Olegario hepatis/mesenteric lymphadenopathy is stable compared to 01/22/2019 likely related to known cirrhosis. Again seen multiple portosystemic collateral vessels with multiple splenorenal shunt varices consistent with portal hypertension. Stable moderate splenomegaly. The gallbladder is surgically absent. No significant biliary ductal dilatation post cholecystectomy. Minimal ascites is stable. Thereis no pneumoperitoneum. Stomach is grossly unremarkable. There are no dilated loops of bowel. There is no evidence for bowel obstruction or acute inflammatory changes. Mild fat stranding adjacent to the second portion of the duodenum is stable compared to 01/22/2019 and may be related to the presence of minimal ascites although underlying duodenitis is again difficult to exclude. Minimal atherosclerotic calcifications. No abdominal aortic aneurysm. There is no evidence for retroperitoneal hemorrhage or mass. Stable small scattered mesenteric, retroperitoneal and inguinal lymph nodes without significant adenopathy. Prior right inguinal hernia repair surgery with surgical mesh in place. Stable mild to moderate degenerative changes of the lumbar spine. Unchanged mild superior endplate compression of the L1 vertebral body and Schmorl's node formation superior endplate of L1. No suspicious bone lesions. IMPRESSION: 1. 3 mm calculus in the proximal left ureter causing mild left hydronephrosis. 2. Evidence for hepatic cirrhosis and portal hypertension with a stable appearance compared to 01/22/2019 with findings as above. Final report electronically signed by: Thelma Manjarrze, DO Signed by: ANTHONY MANJARREZ DO 01/25/19 4806 cc: DEIRDRE GARCIA PA-C,ANTHONY Palencia DOWhite Blood Wzrjy1239-81-45 15:52:00 Test Item Value Reference Range Comments Blood leukocytes automated count (number/volume) (test 4.3 3.6-11.1 code = 6690-2) Red Blood Hnlbr8053-63-25 15:52:00 Test Item Value Reference Range Comments Blood erythrocytes automated count (number/volume) 3.93 4.27-5.49 (test code = 789-8) Vrsqrioifa1115-97-87 15:52:00 Test Item Value Reference Range Comments Blood hemoglobin measurement (mass/volume) (test code 13.4 12.9-16.1 = 718-7) Rsvnvdolpw7104-33-15 15:52:00 Test Item Value Reference Range Comments Automated blood hematocrit (volume fraction) (test 38.2 37.7-46.5 code = 4544-3) Mean Corpuscular Hcfzap5421-08-68 15:52:00 Test Item Value Reference Range Comments Automated erythrocyte mean corpuscular volume (test 97.2 79.3-94.8 code = 787-2) Mean Corpuscular Nrusnjupqb8182-48-83 15:52:00 Test Item Value Reference Range Comments Automated erythrocyte mean corpuscular hemoglobin 34.1 26.8-33.2 (mass per erythrocyte) (test code = 785-6) Mean Corpuscular Hemoglobin Nhlizcw4570-13-80 15:52:00 Test Item Value Reference Range Comments Automated erythrocyte mean corpuscular hemoglobin 35.1 33.5-35.5 concentration measurement (mass/volume) (test code = 786-4) Red Cell Distribution Pduhs0594-44-64 15:52:00 Test Item Value Reference Range Comments Automated erythrocyte distribution width ratio (test 15.0 12.0-15.1 code = 788-0) Platelet Snooj1668-81-84 15:52:00 Test Item Value Reference Range Comments Automated blood platelet count (count/volume) (test 50 165-353 code = 777-3) Mean Platelet Qkzhgp3269-35-57 15:52:00 Test Item Value Reference Range Comments Automated blood platelet mean volume measurement (test 9.9 7.5-10.6 code = 29768-5) Neutrophils (%) (Auto)2019-01-25 15:52:00 Test Item Value Reference Range Comments Automated blood neutrophil count as percentage of 61.4 43.2-71.5 total leukocytes (test code = 770-8) Lymphocytes (%) (Auto)2019-01-25 15:52:00 Test Item Value Reference Range Comments Automated blood lymphocyte count as percentage of 23.5 16.8-43.4 total leukocytes (test code = 736-9) Monocytes (%) (Auto)2019-01-25 15:52:00 Test Item Value Reference Range Comments Automated blood monocyte count as percentage of total 12.2 4.6-12.4 leukocytes (test code = 5905-5) Eosinophils (%) (Auto)2019-01-25 15:52:00 Test Item Value Reference Range Comments Automated blood eosinophil count as percentage of 2.7 0.7-7.8 total leukocytes (test code = 713-8) Basophils (%) (Auto)2019-01-25 15:52:00 Test Item Value Reference Range Comments Automated blood basophil count as percentage of total 0.2 0.2-1.2 leukocytes (test code = 706-2) Neutrophils # (Auto)2019-01-25 15:52:00 Test Item Value Reference Range Comments Blood neutrophils automated count (number/volume) 2.6 1.9-7.2 (test code = 751-8) Lymphocytes # (Auto)2019-01-25 15:52:00 Test Item Value Reference Range Comments Automated blood lymphocyte count (number/volume) (test 1.0 1.1-2.7 code = 731-0) Monocytes # (Auto)2019-01-25 15:52:00 Test Item Value Reference Range Comments Blood monocytes automated count (number/volume) (test 0.5 0.3-0.8 code = 742-7) Eosinophils # (Auto)2019-01-25 15:52:00 Test Item Value Reference Range Comments Automated blood eosinophil count (test code = 711-2) 0.1 0.0-0.5 Basophils # (Auto)2019-01-25 15:52:00 Test Item Value Reference Range Comments Automated blood basophil count (count/volume) (test 0.0 0.0-0.1 code = 704-7) Sodium Bagzs4957-95-90 15:52:00 Test Item Value Reference Range Comments Sodium blood (test code = 469088483) 144 137-144 Potassium Ddvfk6582-27-45 15:52:00 Test Item Value Reference Range Comments Potassium blood (test code = 878856041) 4.0 3.1-5.1 Chloride Hqrhd2466-86-61 15:52:00 Test Item Value Reference Range Comments Chloride blood (test code = 871922729) 114 101-110 Carbon Dioxide Exqli7900-97-72 15:52:00 Test Item Value Reference Range Comments Carbon dioxide blood (test code = 70374410) 28 22-2 9 Glucose Vctnn4924-01-42 15:52:00 Test Item Value Reference Range Comments Glucose blood (test code = 23615769) 93 70-105 Blood Urea Qrckgzak8965-08-29 15:52:00 Test Item Value Reference Range Comments BUN (test code = 263162679) 8.0 8.4-25.7 Edqiroqpeq8398-52-02 15:52:00 Test Item Value Reference Range Comments Creatinine blood (test code = 776183486) 0.72 0.72-1. 25 Estimated Creatinine Clearance Ndrl7694-91-39 15:52:00 Test Item Value Reference Range Comments Estimation of creatinine 134.41 PT Ht: 175.26cm, PT Wt: 109KG clearance (test code = Results m onitored by Pharmacy. [id number]) Anion Jqd2589-01-66 15:52:00 Test Item Value Reference Range Comments Anion gap measurement (test code = 93523973) 6 7-1 6 Calcium Grawh4630-40-68 15:52:00 Test Item Value Reference Range Comments Calcium (test code = 04528019) 8.5 8.4-10.2 Total Wrgxqzpip0818-71-80 15:52:00 Test Item Value Reference Range Comments Total bilirubin (test code = NYU8557) 1.5 0.1-1.2 Total Fnvjbiu5809-60-74 15:52:00 Test Item Value Reference Range Comments Total protein blood (test code = 2885-2) 5.8 6.0-8.3 Wotpgvw5760-60-29 15:52:00 Test Item Value Reference Range Comments Albumin (test code = QLY1055) 3.1 3.2-5.2 Uyilalli9678-42-75 15:52:00 Test Item Value Reference Range Comments Plasma globulin measurement (mass/volume) (test code = 2.7 2.6-4.6 12878-5) Albumin/Globulin Slhbk0021-29-01 15:52:00 Test Item Value Reference Range Comments Albumin to globulin ratio (test code = 195523) 1.1 1 .1-2.5 Aspartate Amino Transf (AST/SGOT)2019-01-25 15:52:00 Test Item Value Reference Range Comments AST (SGOT) ser/plas (test code = 11272956) 75 5-34 Alkaline Mkubstucsnn6820-44-89 15:52:00 Test Item Value Reference Range Comments Alkaline phosphatase (test code = 80096204) 128 40-1 50 Alanine Aminotransferase (ALT/SGPT)2019-01-25 15:52:00 Test Item Value Reference Range Comments ALT (SGPT) ser/plas (test code = 1742-6) 64 0-55 Urine Skxun4218-01-99 15:39:00 Test Item Value Reference Range Comments Urine color determination (test code = 5778-6) YELLOW Urine Fjwsxcgfug0693-79-28 15:39:00 Test Item Value Reference Range Comments Urine clarity determination (test code = 87660-7) CLEAR Urine Specific Xmhejhx5427-93-97 15:39:00 Test Item Value Reference Range Comments Specific gravity of Urine by Refractometry automated 1.011 1.005-1.030 (test code = 73650-8) Urine hX5798-20-26 15:39:00 Test Item Value Reference Range Comments Urine pH measurement by automated test strip (test 6.0 5.0-8.0 code = 61449-5) Urine Leukocyte Gnfjxiok4368-76-47 15:39:00 Test Item Value Reference Range Comments Urine leukocyte esterase detection by automated NEGATIVE NEGATIVE test strip (test code = 70486-7) Urine Qnviyup1435-64-47 15:39:00 Test Item Value Reference Range Comments Urine nitrite detection by automated test strip NEGATIVE NEGATIVE (test code = 18385-2) Urine Vhwkrgk2367-28-09 15:39:00 Test Item Value Reference Range Comments Urine protein detection by automated test strip NEGATIVE NEG-TRACE (test code = 99674-6) Urine Glucose (UA)2019-01-25 15:39:00 Test Item Value Reference Range Comments Urine glucose detection by automated test strip NEGATIVE NEGATIVE (test code = 26045-9) Urine Bmxpkks8829-02-46 15:39:00 Test Item Value Reference Range Comments Urine ketone detection by automated test strip NEGATIVE N EGATIVE (test code = 39861-2) Urine Ugvfmrjvruvk8781-63-71 15:39:00 Test Item Value Reference Range Comments Urine urobilinogen measurement by automated test strip >2.0 <2.0 (mass/volume) (test code = 63234-3) Urine Ocrcubnrd2262-70-94 15:39:00 Test Item Value Reference Range Comments Urine bilirubin detection by automated test strip NEGATIVE NEGATIVE (test code = 39399-8) Urine Hubev4964-02-11 15:39:00 Test Item Value Reference Range Comments Urine erythrocytes detection by automated method (test 3+ NEGATIVE code = 06014-4) Urine Culture Idixognnt5763-00-71 15:39:00 Test Item Value Reference Range Comments UA + culture (test code = NO Urine Culture was not indicated. 83422-9) Urine FSL9892-18-43 15:39:00 Test Item Value Reference Range Comments RBC count ur auto (test code = 798-9) <20 0-2 Urine DKV1770-57-31 15:39:00 Test Item Value Reference Range Comments Automated leukocytes count in urine sediment 0-5 0-5 (number/area) (test code = 15039-8) Urine Uivnb9958-51-81 15:39:00 Test Item Value Reference Range Comments Urine mucus detection by automated method (test code = MARY 73063-6) CAT QACC5810-81-47 05:06:[address] [address] Patient: RADHA VÁSQUEZ : 1960 Sex: M Address: [address] [place] [address] [place] [address] Unit #: [id number] REQ SEQ #: [id number] Location: ED Room #: Ordering: TONY VALLEJO MD Diagnosis: KIDNEY STONE R SIDE ------- Exam: CT of the abdomen pelvis with contrast Comparisons: 11/22/2018. History: Right flank pain and hematuria. History of renal stonesand hepatitis. Evaluate for acute findings. Findings: CT images of the abdomen and pelvis were obtained following the uneventful administration of 119 mL of Optiray 320 IV contrast. Moderately nodular appearance of the liver compatible with changes of cirrhosis. Olegario hepatis/mesenteric lymphadenopathy is similar to prior, again likely related to known cirrhosis. Multiple portosystemic collateral vessels, best visualized a splenic renal shunt compatible with portal hypertension. Moderate splenomegaly, measuring up to 16.5 cm. Prior cholecystectomy without significant biliary dilatation. The pancreas, right adrenal gland, bladder and prostate demonstrate no significant abnormalities. Nonobstructing stone at the upper pole right kidney, measuring up to 1.0 cm. There is a 0.3 cm stone at the left ureteropelvic junction without significant hydronephrosis. No other discrete ureteral stones or evidence of obstructive uropathy. There is a moderate amount of formed stool identified within the colon. Otherwise, the stomach, small bowel and colon are within normal limits. Mild fat stranding adjacent to the second portion of the duodenum is overall similar to the prior exam and underlying duodenitis is again difficult to exclude. Mild mesenteric fat str anding is also similar to prior. Mild atherosclerosis of the abdominal aorta and its main branches. There are scattered mesenteric, retroperitoneal and inguinal lymph nodes without significant lymphadenopathy. There is mild bibasilar subsegmental atelectasis. Sqvp-qo-beaisnah degenerative changes of the lumbar spine. Mild anterior compression deformity of L1, similar to prior. Impression: 1. Findings compatible with cirrhosis and portal hypertension with multiple splenorenal shunt vessels, similar to the prior exam. Mild fat stranding adjacent to the duodenum and mild mesenteric fat stranding are overall similar to the prior study, likely related to known cirrhosis although mild duodenitis is difficult to exclude. 2. Prior cholecystectomy without significant biliarydilatation. 3. Nonobstructing renal stones, at the upper pole right kidney measuring up to 1.0 cm without evidence of obstructive uropathy. There is also a stone measuring 0.3 cm at the left ureteropelvic junction without significant upstream hydronephrosis. 4. There is a moderate amount of formed stool identified within the colon. 5. Mild atherosclerosis. Final report electronically signed by: Dariel Ceja MD Signed by: SHUBHAM CEJA MD 01/22/19 0502 cc: TONY VALLEJO MD, CHRISTOPHER R MDWhite Blood Ebdig4076-63-24 03:28:00 Test Item Value Reference Range Comments Blood leukocytes automated count (number/volume) (test 3.2 3.6-11.1 code = 6690-2) Red Blood Qxjoa1649-39-70 03:28:00 Test Item Value Reference Range Comments Blood erythrocytes automated count (number/volume) 3.52 4.27-5.49 (test code = 789-8) Rtxjbgzltj6105-93-23 03:28:00 Test Item Value Reference Range Comments Blood hemoglobin measurement (mass/volume) (test code 11.9 12.9-16.1 = 718-7) Osybmptufx3989-93-12 03:28:00 Test Item Value Reference Range Comments Automated blood hematocrit (volume fraction) (test 34.1 37.7-46.5 code = 4544-3) Mean Corpuscular Egvsmh2592-34-39 03:28:00 Test Item Value Reference Range Comments Automated erythrocyte mean corpuscular volume (test 96.8 79.3-94.8 code = 787-2) Mean Corpuscular Irwfcgbkvt5616-80-13 03:28:00 Test Item Value Reference Range Comments Automated erythrocyte mean corpuscular hemoglobin 33.9 26.8-33.2 (mass per erythrocyte) (test code = 785-6) Mean Corpuscular Hemoglobin Dsbdkgf5970-95-68 03:28:00 Test Item Value Reference Range Comments Automated erythrocyte mean corpuscular hemoglobin 35.1 33.5-35.5 concentration measurement (mass/volume) (test code = 786-4) Red Cell Distribution Iuziw2300-99-26 03:28:00 Test Item Value Reference Range Comments Automated erythrocyte distribution width ratio (test 14.8 12.0-15.1 code = 788-0) Platelet Njtja1980-17-63 03:28:00 Test Item Value Reference Range Comments Automated blood platelet count 28 165-353 P latelet count verified by (count/volume) (test code = slid e estimate. CALLED BY Raquel 777-3) Thomas Terrell at 0358 TO RAFAL CARPIO RNED AND R/V. Mean Platelet Ulqhgk2617-93-14 03:28:00 Test Item Value Reference Range Comments Automated blood platelet mean volume measurement (test 8.6 7.5-10.6 code = 51014-1) Neutrophils (%) (Auto)2019-01-22 03:28:00 Test Item Value Reference Range Comments Automated blood neutrophil count as percentage of 56.8 43.2-71.5 total leukocytes (test code = 770-8) Lymphocytes (%) (Auto)2019-01-22 03:28:00 Test Item Value Reference Range Comments Automated blood lymphocyte count as percentage of 21.0 16.8-43.4 total leukocytes (test code = 736-9) Monocytes (%) (Auto)2019-01-22 03:28:00 Test Item Value Reference Range Comments Automated blood monocyte count as percentage of total 20.0 4.6-12.4 leukocytes (test code = 5905-5) Eosinophils (%) (Auto)2019-01-22 03:28:00 Test Item Value Reference Range Comments Automated blood eosinophil count as percentage of 1.4 0.7-7.8 total leukocytes (test code = 713-8) Basophils (%) (Auto)2019-01-22 03:28:00 Test Item Value Reference Range Comments Automated blood basophil count as percentage of total 0.8 0.2-1.2 leukocytes (test code = 706-2) Neutrophils # (Auto)2019-01-22 03:28:00 Test Item Value Reference Range Comments Blood neutrophils automated count (number/volume) 1.8 1.9-7.2 (test code = 751-8) Lymphocytes # (Auto)2019-01-22 03:28:00 Test Item Value Reference Range Comments Automated blood lymphocyte count (number/volume) (test 0.7 1.1-2.7 code = 731-0) Monocytes # (Auto)2019-01-22 03:28:00 Test Item Value Reference Range Comments Blood monocytes automated count (number/volume) (test 0.6 0.3-0.8 code = 742-7) Eosinophils # (Auto)2019-01-22 03:28:00 Test Item Value Reference Range Comments Automated blood eosinophil count (test code = 711-2) 0.0 0.0-0.5 Basophils # (Auto)2019-01-22 03:28:00 Test Item Value Reference Range Comments Automated blood basophil count (count/volume) (test 0.0 0.0-0.1 code = 704-7) Prothrombin Uvke0157-72-65 03:28:00 Test Item Value Reference Range Comments Prothrombin time (PT) in platelet poor plasma by 17.9 10.8-14.2 coagulation assay (test code = 5902-2) Prothromb Time International Qnbvl8542-63-43 03:28:00 Test Item Value Reference Range Comments INR in Platelet poor plasma by 1.53 I NR Therapeutic Range: 2.0-3.0 Coagulation assay (test code = O ral Anticoagulant Therapy 6301-6) 2.5-3.5 Prosthet ic Heart Valves, Recurrent System ic Embolism Sodium Usysx1096-35-38 03:00:00 Test Item Value Reference Range Comments Sodium blood (test code = 340447038) 139 137-144 Potassium Kpbnx4962-39-95 03:00:00 Test Item Value Reference Range Comments Potassium blood (test code = 456185964) 3.7 3.1-5.1 Chloride Eboja4096-61-83 03:00:00 Test Item Value Reference Range Comments Chloride blood (test code = 818639434) 108 101-110 Carbon Dioxide Gspmb9463-98-94 03:00:00 Test Item Value Reference Range Comments Carbon dioxide blood (test code = 12730059) 20 22-2 9 Glucose Heork5108-04-95 03:00:00 Test Item Value Reference Range Comments Glucose blood (test code = 70469079) 179 70-105 Blood Urea Yuoxphsv0035-62-12 03:00:00 Test Item Value Reference Range Comments BUN (test code = 170770567) 9.0 8.4-25.7 Pypjxetkrl3756-49-66 03:00:00 Test Item Value Reference Range Comments Creatinine blood (test code = 438715558) 0.77 0.72-1. 25 Estimated Creatinine Clearance Pvgx3103-65-15 03:00:00 Test Item Value Reference Range Comments Estimation of creatinine 125.97 PT Ht: 175.26cm, PT Wt: clearance (test code = 109.5KG R esults monitored by [id number]) Pharmacy. Anion Qxt2619-68-28 03:00:00 Test Item Value Reference Range Comments Anion gap measurement (test code = 08073153) 15 7-1 6 Calcium Nixah7904-69-88 03:00:00 Test Item Value Reference Range Comments Calcium (test code = 44284468) 8.8 8.4-10.2 Total Ocdqwcmqm8539-70-10 03:00:00 Test Item Value Reference Range Comments Total bilirubin (test code = IOK1734) 1.7 0.1-1.2 Total Rhloqxh9482-37-53 03:00:00 Test Item Value Reference Range Comments Total protein blood (test code = 2885-2) 5.9 6.0-8.3 Ajilsmb6605-97-91 03:00:00 Test Item Value Reference Range Comments Albumin (test code = XKV9968) 3.2 3.2-5.2 Viunrjvh3334-56-82 03:00:00 Test Item Value Reference Range Comments Plasma globulin measurement (mass/volume) (test code = 2.7 2.6-4.6 12035-3) Albumin/Globulin Bdfug8846-68-00 03:00:00 Test Item Value Reference Range Comments Albumin to globulin ratio (test code = 573840) 1.2 1 .1-2.5 Aspartate Amino Transf (AST/SGOT)2019-01-22 03:00:00 Test Item Value Reference Range Comments AST (SGOT) ser/plas (test code = 52613403) 54 5-34 Alkaline Xsiegkhngaq8152-50-69 03:00:00 Test Item Value Reference Range Comments Alkaline phosphatase (test code = 54843387) 112 40-1 50 Alanine Aminotransferase (ALT/SGPT)2019-01-22 03:00:00 Test Item Value Reference Range Comments ALT (SGPT) ser/plas (test code = 1742-6) 40 0-55 Urine Uusux6751-52-79 02:30:00 Test Item Value Reference Range Comments Urine color determination (test code = 5778-6) YELLOW Urine Fkeqtrmalt6647-61-02 02:30:00 Test Item Value Reference Range Comments Urine clarity determination (test code = 30891-4) CLEAR Urine Specific Fnplnex1533-18-04 02:30:00 Test Item Value Reference Range Comments Specific gravity of Urine by Refractometry automated 1.018 1.005-1.030 (test code = 79939-6) Urine aD0136-36-90 02:30:00 Test Item Value Reference Range Comments Urine pH measurement by automated test strip (test 6.0 5.0-8.0 code = 35384-7) Urine Leukocyte Ogxtihgy5814-21-20 02:30:00 Test Item Value Reference Range Comments Urine leukocyte esterase detection by automated NEGATIVE NEGATIVE test strip (test code = 13483-0) Urine Oftnovk8898-37-23 02:30:00 Test Item Value Reference Range Comments Urine nitrite detection by automated test strip NEGATIVE NEGATIVE (test code = 96355-7) Urine Ycpunmc2625-37-91 02:30:00 Test Item Value Reference Range Comments Urine protein detection by automated test strip (test TRACE NEG-TRACE code = 27666-2) Urine Glucose (UA)2019-01-22 02:30:00 Test Item Value Reference Range Comments Urine glucose detection by automated test strip (test 1+ NEGATIVE code = 98895-9) Urine Qzkavqj6021-24-14 02:30:00 Test Item Value Reference Range Comments Urine ketone detection by automated test strip (test TRACE NEGATIVE code = 00518-0) Urine Zucffyqzibvt2052-49-02 02:30:00 Test Item Value Reference Range Comments Urine urobilinogen measurement by automated test strip 8.0 <2.0 (mass/volume) (test code = 60822-7) Urine Rdballvfk7092-20-10 02:30:00 Test Item Value Reference Range Comments Urine bilirubin detection by automated test strip NEGATIVE NEGATIVE (test code = 80295-4) Urine Dvvzb5330-49-99 02:30:00 Test Item Value Reference Range Comments Urine erythrocytes detection by automated method (test 2+ NEGATIVE code = 80550-8) Urine Culture Hohgtmmgv6026-30-38 02:30:00 Test Item Value Reference Range Comments UA + culture (test code = NO Urine Culture was not indicated. 64683-1) Urine ACS2273-39-07 02:30:00 Test Item Value Reference Range Comments RBC count ur auto (test code = 798-9) <20 0-2 Urine Zyuoz0222-11-55 02:30:00 Test Item Value Reference Range Comments Urine mucus detection by automated method (test code = SMALL 54691-2) CAT FJNX1904-19-33 14:02:[address] [address] Patient: RADHA VÁSQUEZ : 1960 Sex: M Address: [address] [place] [address] [place] [address] [facility] #: [id number] Unit #: [id number] REQ SEQ #: [id number] Location: ED Room #: Ordering: IRENE ABDUL LARD MAKER- Diagnosis: FLANK PAIN -------- CT ABD PELV W/IV CONTRAST ONLYHistory: FLANK PAIN Multislice CT images through the abdomen and pelvis with IV contrast. Lung bases demonstrate mild fibrotic changes. Liver: Nodular small liver compatible with cirrh osis. No focal masses. Status post cholecystectomy. Portal vein is well opacified; however there are varices in the splenorenal ligament. There are lymph nodes in the olegario hepatis and aortocaval region. The pancreas is unremarkable. The adrenal glands are unremarkable. The kidneys are normal other than a nonobstructive calculus in the upper pole right kidney. The bladder is unremarkable. Bowel: Stomach is nondistended. Small bowel loops demonstrate inflammatory changes around the duodenum. Compatible with duodenitis. There is no perforation. Small bowel loops otherwise demonstrate some fluid-filled loops but no obstruction. The large bowel demonstrates no focal abnormality. There is diverticulosis. Thoracic spondylosis and lumbar facet arthrosis. IMPRESSION: 1. Cirrhosis in the liver with evidence of varices in the splenorenal region with some splenomegaly as well. 2. Lymphadenopathy in the olegario hepatis and aortocaval region likely related to underlying cirrhosis. 3. There are inflammatory changes around the duodenum which may reflect a duodenitis or an underlying peptic ulcer disease but there is no jailene perforation evidenced. 3. Diverticulosis but no diverticulitis. Final report electronically signed by: Lizbeth Pickard MD Signed by: LIZBETH PICKARD II, MD 11/22/18 [id number] cc: LIZBETH PICKARD II, MD, MEGAN LARD MAKER-BCUrine Qrcuq1246-71-37 13:01:00 Test Item Value Reference Range Comments Urine color determination (test code = 5778-6) YELLOW Urine Whzpqtncxc4208-70-28 13:01:00 Test Item Value Reference Range Comments Urine clarity determination (test code = 08085-5) CLEAR Urine Specific Rddzjhl1858-96-23 13:01:00 Test Item Value Reference Range Comments Specific gravity of Urine by Refractometry automated 1.015 1.005-1.030 (test code = 70868-3) Urine fM2369-12-36 13:01:00 Test Item Value Reference Range Comments Urine pH (test code = 2756-5) 6.0 5.0-8.0 Urine VPE1120-37-78 13:01:00 Test Item Value Reference Range Comments Urine leukocyte esterase detection by automated test 0-5 0-5 strip (test code = 57611-7) Urine Oaxkqkv6554-71-98 13:01:00 Test Item Value Reference Range Comments Urine nitrite detection (test code = 53527-7) NEGATIVE NE GATIVE Urine Cvpckkj2717-06-56 13:01:00 Test Item Value Reference Range Comments Urine protein detection (test code = 2887-8) NEGATIVE NEG -TRACE Urine Glucose (UA)2018-11-22 13:01:00 Test Item Value Reference Range Comments Urine glucose detection (test code = 2349-9) NEGATIVE NEG ATIVE Urine Pipurqs3235-04-55 13:01:00 Test Item Value Reference Range Comments Urine ketones detection (test code = 41385-9) NEGATIVE NE GATIVE Urine Albojgrqxija6579-88-10 13:01:00 Test Item Value Reference Range Comments Urine urobilinogen measurement (test code = 01448-0) >2.0 <2.0 Urine Iiawhfykr6195-44-38 13:01:00 Test Item Value Reference Range Comments Urine bilirubin detection (test code = 1977-8) NEGATIVE N EGATIVE Urine Dsyli1264-60-36 13:01:00 Test Item Value Reference Range Comments Urine blood detection (test code = 43792-6) 1+ NEGA TIVE Urine Culture Upplcqxbv5739-28-82 13:01:00 Test Item Value Reference Range Comments UA + culture (test code = NO Urine Culture was not indicated. 24303-8) Urine LFK7993-33-14 13:01:00 Test Item Value Reference Range Comments Automated urine sediment erythrocyte count by 3-5 0- 2 microscopy (number/high power field) (test code = 37120-3) Urine Joylt0064-36-62 13:01:00 Test Item Value Reference Range Comments Mucus detection in urine sediment by light microscopy SMALL (test code = 8247-9) Bedside Olalsolyad3878-50-36 12:13:00 Test Item Value Reference Range Comments Serum or plasma creatinine measurement (mass/volume) 0.6 0.52-1.04 (test code = 2160-0) Bedside Troponin O5536-61-30 11:59:00 Test Item Value Reference Range Comments Bedside Troponin I (test code = Bedside Troponin I) 0.01 0.03-0.118 White Blood Gyvqm6547-05-36 11:50:00 Test Item Value Reference Range Comments Blood leukocytes automated count (number/volume) (test 5.7 3.6-11.1 code = 6690-2) Red Blood Oobdo6775-58-73 11:50:00 Test Item Value Reference Range Comments Blood erythrocytes automated count (number/volume) 4.27 4.27-5.49 (test code = 789-8) Roqivemiwe4698-24-73 11:50:00 Test Item Value Reference Range Comments Blood hemoglobin measurement (mass/volume) (test code 14.5 12.9-16.1 = 718-7) Scfldimwsw0594-73-91 11:50:00 Test Item Value Reference Range Comments Automated blood hematocrit (volume fraction) (test 41.6 37.7-46.5 code = 4544-3) Mean Corpuscular Towkod8420-68-33 11:50:00 Test Item Value Reference Range Comments Automated erythrocyte mean corpuscular volume (test 97.3 79.3-94.8 code = 787-2) Mean Corpuscular Caetlwcajr6516-70-54 11:50:00 Test Item Value Reference Range Comments Automated erythrocyte mean corpuscular hemoglobin 33.9 26.8-33.2 (mass per erythrocyte) (test code = 785-6) Mean Corpuscular Hemoglobin Uwnksmt2422-89-49 11:50:00 Test Item Value Reference Range Comments Automated erythrocyte mean corpuscular hemoglobin 34.8 33.5-35.5 concentration measurement (mass/volume) (test code = 786-4) Red Cell Distribution Qqkwa4313-39-83 11:50:00 Test Item Value Reference Range Comments Automated erythrocyte distribution width ratio (test 15.5 12.0-15.1 code = 788-0) Platelet Hoiup9697-80-97 11:50:00 Test Item Value Reference Range Comments Automated blood platelet count 37 165-353 P LT CALLED BY Radha Whitten at (count/volume) (test code = 1230 TO AG LOPES RN AND R/V. 777-3) Platelet count v erified by slide estimate. Mean Platelet Erwxyu0504-42-85 11:50:00 Test Item Value Reference Range Comments Automated blood platelet mean volume measurement (test 8.9 7.5-10.6 code = 54537-7) Neutrophils (%) (Auto)2018-11-22 11:50:00 Test Item Value Reference Range Comments Automated blood neutrophil count as percentage of 74.0 43.2-71.5 total leukocytes (test code = 770-8) Lymphocytes (%) (Auto)2018-11-22 11:50:00 Test Item Value Reference Range Comments Automated blood lymphocyte count as percentage of 18.0 16.8-43.4 total leukocytes (test code = 736-9) Monocytes (%) (Auto)2018-11-22 11:50:00 Test Item Value Reference Range Comments Automated blood monocyte count as percentage of total 7.1 4.6-12.4 leukocytes (test code = 5905-5) Eosinophils (%) (Auto)2018-11-22 11:50:00 Test Item Value Reference Range Comments Automated blood eosinophil count as percentage of 0.6 0.7-7.8 total leukocytes (test code = 713-8) Basophils (%) (Auto)2018-11-22 11:50:00 Test Item Value Reference Range Comments Automated blood basophil count as percentage of total 0.3 0.2-1.2 leukocytes (test code = 706-2) Neutrophils # (Auto)2018-11-22 11:50:00 Test Item Value Reference Range Comments Blood neutrophils automated count (number/volume) 4.2 1.9-7.2 (test code = 751-8) Lymphocytes # (Auto)2018-11-22 11:50:00 Test Item Value Reference Range Comments Automated blood lymphocyte count (number/volume) (test 1.0 1.1-2.7 code = 731-0) Monocytes # (Auto)2018-11-22 11:50:00 Test Item Value Reference Range Comments Blood monocytes automated count (number/volume) (test 0.4 0.3-0.8 code = 742-7) Eosinophils # (Auto)2018-11-22 11:50:00 Test Item Value Reference Range Comments Automated blood eosinophil count (test code = 711-2) 0.0 0.0-0.5 Basophils # (Auto)2018-11-22 11:50:00 Test Item Value Reference Range Comments Automated blood basophil count (count/volume) (test 0.0 0.0-0.1 code = 704-7) Prothrombin Rves0432-22-45 11:50:00 Test Item Value Reference Range Comments Prothrombin time (PT) in platelet poor plasma by 16.3 10.8-14.2 coagulation assay (test code = 5902-2) Prothromb Time International Mdvbk2111-20-67 11:50:00 Test Item Value Reference Range Comments INR in Platelet poor plasma by 1.36 I NR Therapeutic Range: 2.0-3.0 Coagulation assay (test code = O ral Anticoagulant Therapy 6301-6) 2.5-3.5 Prosthet ic Heart Valves, Recurrent System ic Embolism Sodium Ulbwy6013-69-58 11:50:00 Test Item Value Reference Range Comments Sodium blood (test code = 051132035) 140 137-144 Potassium Kbywm3239-50-89 11:50:00 Test Item Value Reference Range Comments Potassium blood (test code = 172087722) 3.9 3.1-5.1 Chloride Camzq7367-51-23 11:50:00 Test Item Value Reference Range Comments Chloride blood (test code = 557800021) 111 101-110 Carbon Dioxide Vbwqq4082-15-28 11:50:00 Test Item Value Reference Range Comments Carbon dioxide blood (test code = 92342372) 20 22-2 9 Glucose Ubcfd0522-38-59 11:50:00 Test Item Value Reference Range Comments Glucose blood (test code = 00669924) 120 70-105 Blood Urea Rgxzfhln6970-98-78 11:50:00 Test Item Value Reference Range Comments BUN (test code = 576031941) 9.0 8.4-25.7 Ezxnlvqkyw3008-45-94 11:50:00 Test Item Value Reference Range Comments Creatinine blood (test code = 433288292) 0.72 0.72-1. 25 Estimated Creatinine Clearance Wotk9165-33-81 11:50:00 Test Item Value Reference Range Comments Estimation of creatinine 133.03 PT Ht: 175.26cm, PT Wt: clearance (test code = 106.8KG R esults monitored by [id number]) Pharmacy. Anion Mhj4261-94-88 11:50:00 Test Item Value Reference Range Comments Anion gap measurement (test code = 47230903) 13 7-1 6 Calcium Onnod0334-24-18 11:50:00 Test Item Value Reference Range Comments Calcium (test code = 05939528) 8.8 8.4-10.2 Total Opweyzyop5293-01-98 11:50:00 Test Item Value Reference Range Comments Total bilirubin (test code = TNX0430) 1.6 0.1-1.2 Direct Mlcsuxajw8172-35-24 11:50:00 Test Item Value Reference Range Comments Direct bilirubin (test code = 1968-7) 0.7 0.0-0.5 Indirect Vqbrrjfth4671-11-60 11:50:00 Test Item Value Reference Range Comments Serum or plasma indirect bilirubin measurement 0.9 0 .0-1.1 (mass/volume) (test code = 1971-1) Total Toklflx8963-91-68 11:50:00 Test Item Value Reference Range Comments Total protein blood (test code = 2885-2) 6.3 6.0-8.3 Wosixut9886-27-98 11:50:00 Test Item Value Reference Range Comments Albumin (test code = WZR0943) 3.5 3.2-5.2 Fzsdsazq7723-04-40 11:50:00 Test Item Value Reference Range Comments Plasma globulin measurement (mass/volume) (test code = 2.8 2.6-4.6 79106-2) Albumin/Globulin Pychs3211-58-86 11:50:00 Test Item Value Reference Range Comments Albumin to globulin ratio (test code = 693584) 1.3 1 .1-2.5 Aspartate Amino Transf (AST/SGOT)2018-11-22 11:50:00 Test Item Value Reference Range Comments AST (SGOT) ser/plas (test code = 25920905) 35 5-34 Alkaline Coypbmptpbc0249-79-79 11:50:00 Test Item Value Reference Range Comments Alkaline phosphatase (test code = 46006573) 110 40-1 50 Alanine Aminotransferase (ALT/SGPT)2018-11-22 11:50:00 Test Item Value Reference Range Comments ALT (SGPT) ser/plas (test code = 1742-6) 24 0-55 Dpobzl2956-53-57 11:50:00 Test Item Value Reference Range Comments Lipase ser/plas (test code = 3040-3) 73 7-78 Magnesium Uwzpq5323-82-42 11:50:00 Test Item Value Reference Range Comments Magnesium blood (test code = 803279001) 1.8 1.5-2.6 B-Type Natriuretic Cxrptvz8213-94-85 11:50:00 Test Item Value Reference Range Comments Brain natriuretic peptide >10.0 0.0-100.0 Plasma concentrations of (test code = 45530-3) natriureti c peptides may be elevated in leonid ents with acute myocardial infar ction and renal insufficiency. White Blood Xkhif5029-83-58 13:30:00 Test Item Value Reference Range Comments Blood leukocytes automated count (number/volume) (test 4.6 3.6-11.1 code = 6690-2) Red Blood Ewlnl1620-12-08 13:30:00 Test Item Value Reference Range Comments Blood erythrocytes automated count (number/volume) 4.05 4.27-5.49 (test code = 789-8) Uhznkgtjla8542-64-98 13:30:00 Test Item Value Reference Range Comments Blood hemoglobin measurement (mass/volume) (test code 13.2 12.9-16.1 = 718-7) Foowmvmwkq3956-12-83 13:30:00 Test Item Value Reference Range Comments Automated blood hematocrit (volume fraction) (test 38.4 37.7-46.5 code = 4544-3) Mean Corpuscular Zwntbu4224-78-02 13:30:00 Test Item Value Reference Range Comments Automated erythrocyte mean corpuscular volume (test 94.8 79.3-94.8 code = 787-2) Mean Corpuscular Iyabxkagji8939-65-69 13:30:00 Test Item Value Reference Range Comments Automated erythrocyte mean corpuscular hemoglobin 32.6 26.8-33.2 (mass per erythrocyte) (test code = 785-6) Mean Corpuscular Hemoglobin Xsucldl7731-86-49 13:30:00 Test Item Value Reference Range Comments Automated erythrocyte mean corpuscular hemoglobin 34.4 33.5-35.5 concentration measurement (mass/volume) (test code = 786-4) Red Cell Distribution Gumwj0976-08-47 13:30:00 Test Item Value Reference Range Comments Automated erythrocyte distribution width ratio (test 15.9 12.0-15.1 code = 788-0) Platelet Jkrxo4454-13-23 13:30:00 Test Item Value Reference Range Comments Automated blood platelet count 33 165-353 C ALLED BY Galilea Stover at (count/volume) (test code = 1353 TO NEETA YEH RN AND R/V. 777-3) Platelet count v erified by slide estimate. Mean Platelet Ptmtkd2014-95-26 13:30:00 Test Item Value Reference Range Comments Automated blood platelet mean volume measurement (test 9.4 7.5-10.6 code = 32496-1) Neutrophils (%) (Auto)2018-04-10 13:30:00 Test Item Value Reference Range Comments Automated blood neutrophil count as percentage of 62.3 43.2-71.5 total leukocytes (test code = 770-8) Lymphocytes (%) (Auto)2018-04-10 13:30:00 Test Item Value Reference Range Comments Automated blood lymphocyte count as percentage of 24.7 16.8-43.4 total leukocytes (test code = 736-9) Monocytes (%) (Auto)2018-04-10 13:30:00 Test Item Value Reference Range Comments Automated blood monocyte count as percentage of total 11.5 4.6-12.4 leukocytes (test code = 5905-5) Eosinophils (%) (Auto)2018-04-10 13:30:00 Test Item Value Reference Range Comments Automated blood eosinophil count as percentage of 1.2 0.7-7.8 total leukocytes (test code = 713-8) Basophils (%) (Auto)2018-04-10 13:30:00 Test Item Value Reference Range Comments Automated blood basophil count as percentage of total 0.3 0.2-1.2 leukocytes (test code = 706-2) Neutrophils # (Auto)2018-04-10 13:30:00 Test Item Value Reference Range Comments Blood neutrophils automated count (number/volume) 2.9 1.9-7.2 (test code = 751-8) Lymphocytes # (Auto)2018-04-10 13:30:00 Test Item Value Reference Range Comments Automated blood lymphocyte count (number/volume) (test 1.1 1.1-2.7 code = 731-0) Monocytes # (Auto)2018-04-10 13:30:00 Test Item Value Reference Range Comments Blood monocytes automated count (number/volume) (test 0.5 0.3-0.8 code = 742-7) Eosinophils # (Auto)2018-04-10 13:30:00 Test Item Value Reference Range Comments Automated blood eosinophil count (test code = 711-2) 0.1 0.0-0.5 Basophils # (Auto)2018-04-10 13:30:00 Test Item Value Reference Range Comments Automated blood basophil count (count/volume) (test 0.0 0.0-0.1 code = 704-7) CAT XSAX2347-59-14 12:42:[address] [address] Patient: RADHA VÁSQUEZ : 1960 Sex: M Address: [address] [place] [address] [place] [address] [facility] #: [id number] Unit #: [id number] [facility] SEQ #: [id number] Location: [facility] Room #: Ordering: DEIRDRE GARCIA PA-C Diagnosis: BACK PAIN/KNEE PAIN Indication: Chronic neck pain. Technique: Thin spiral axial CT acquisition of the cervical spine with sagittal and coronal reconstructions. Findings: Straightening cervical spine. Minimal focal kyphosis C6-C7. Loss of disc height with marginal osteophytes C5-C6 through C7-T1. No concerning bone lesions. C1-C2: Mild atlantoodontoid joint degenerative changes. C2-C3: Moderate right facet hypertrophy with anchylosis. No canal or foraminal stenosis. C3-C4: Mild to moderate facet hypertrophy. Smallmarginal disc osteophyte complex. Bilateral uncinate spurs. Moderate bilateral foraminal narrowing. C4-C5: Mild left facet hypertrophy. No canal or foraminal stenosis. C5-C6: Left foraminotomy. Marginal disc osteophyte complex with superimposed central disc protrusion deforms the ventral cord.No foraminal narrowing. C6- C7: Left foraminotomy. Marginal disc osteophyte complex and bilateral uncinate spurs. Good left foraminal decompression. Moderate right foraminal stenosis. C7-T1: Mild facet hypertrophy. Bilateral uncinate spurs. Mild to moderate left foraminal narrowing. IMPRESSION: 1. Cervical spondylosis as described. 2. Status post left foraminal surgical decompression C5-C6 and C6-C7. 3. Bilateral C3-C4 and right C6-C7 foraminal stenosis. Final report electronically signed by: Amador Lyles MD Signed by: AMADOR LYLES MD 04/10/18 [id number] cc: DEIRDRE GARCIA PA-C, JOSEPH MDProthrombin Time 2018-04-10 12:30:00 Test Item Value Reference Range Comments Prothrombin time (PT) in platelet poor plasma by 22.5 10.8-14.2 coagulation assay (test code = 5902-2) Prothromb Time International Gkjrn4296-99-59 12:30:00 Test Item Value Reference Range Comments INR in Platelet poor plasma by 2.05 I NR Therapeutic Range: 2.0-3.0 Coagulation assay (test code = O ral Anticoagulant Therapy 6301-6) 2.5-3.5 Prosthet ic Heart Valves, Recurrent System ic Embolism Sodium Njaui8490-05-04 11:30:00 Test Item Value Reference Range Comments Sodium blood (test code = 565425122) 141 137-144 Potassium Xuygt8906-67-52 11:30:00 Test Item Value Reference Range Comments Potassium blood (test code = 484730278) 3.8 3.1-5.1 Chloride Fgoge4214-22-70 11:30:00 Test Item Value Reference Range Comments Chloride blood (test code = 999411298) 109 101-110 Carbon Dioxide Cenws2928-04-07 11:30:00 Test Item Value Reference Range Comments Carbon dioxide (test code = 56913702) 22 22-29 Glucose Bfqbm1717-55-82 11:30:00 Test Item Value Reference Range Comments Glucose blood (test code = 84684139) 152 70-105 Blood Urea Cuodrovc2971-68-89 11:30:00 Test Item Value Reference Range Comments BUN (test code = 680814675) 8.0 8.4-25.7 Jssczlfyrp4838-10-39 11:30:00 Test Item Value Reference Range Comments Creatinine blood (test code = 988917278) 0.76 0.72-1. 25 Anion Nur2993-42-18 11:30:00 Test Item Value Reference Range Comments Anion gap measurement (test code = 54710759) 14 7-1 6 Calcium Pyxio4890-97-50 11:30:00 Test Item Value Reference Range Comments Calcium (test code = 94849597) 8.9 8.4-10.2 Total Ihzlialwb4720-64-29 11:30:00 Test Item Value Reference Range Comments Total bilirubin (test code = FAS4289) 1.7 0.1-1.2 Total Dtjaplx5165-10-40 11:30:00 Test Item Value Reference Range Comments Total protein blood (test code = 2885-2) 6.2 6.0-8.3 Sadtoyr7377-74-81 11:30:00 Test Item Value Reference Range Comments Albumin (test code = BEJ3745) 3.2 3.2-5.2 Lkoddsgo6667-15-84 11:30:00 Test Item Value Reference Range Comments Plasma globulin measurement (mass/volume) (test code = 3.0 2.6-4.6 25600-9) Albumin/Globulin Iiwrd6023-89-31 11:30:00 Test Item Value Reference Range Comments Albumin to globulin ratio (test code = 230923) 1.1 1 .1-2.5 Total Creatine Dkyjfw3603-62-61 11:30:00 Test Item Value Reference Range Comments Total creatine kinase measurement (test code = 133 3 7-289 217453930) Aspartate Amino Transf (AST/SGOT)2018-04-10 11:30:00 Test Item Value Reference Range Comments AST (SGOT) ser/plas (test code = 23608758) 37 5-34 Alkaline Leqmplpzrpb4791-65-83 11:30:00 Test Item Value Reference Range Comments Alkaline phosphatase (test code = 00669809) 99 40-1 50 Alanine Aminotransferase (ALT/SGPT)2018-04-10 11:30:00 Test Item Value Reference Range Comments ALT (SGPT) ser/plas (test code = 1742-6) 33 0-55 Prothrombin Xpjy-EUB0654-46-30 13:42:00 Test Item Value Reference Range Comments INR (test code = 661480) 2.0 PT (test code = 811515) 20.9 sec 9.0-11.5 Prothrombin Qqtw-DNU6446-67-30 00:01:00 Test Item Value Reference Range Comments INR (test code = 148000) 3.2 PT (test code = 977547) 32.5 sec 9.0-11.5 T4 Free (FT4)2017-07-02 01:31:00 Test Item Value Reference Range Comments Free T4 (test code = 683236) 0.9 ng/dL 0.8-1.8 ITJ9009-96-23 14:40:00 Test Item Value Reference Range Comments TSH (test code = 872681) 0.20 mIU/L 0.40-4.50 Hepatitis B Surface Antibody, Qeedc0226-66-67 14:40:00 Test Item Value Reference Range Comments Hepatitis B Surface Ab, Quant (test code = <5.0 mIU/mL 607981) Hepatitis B Surface Ab, Quant (test code = <5.0 mIU/mL 2437372) Hepatitis B Surface Ab, Quant (test code = <5.0 mIU/mL 9351962) CBC NO Diff (Complete Blood Count)2017-06-30 14:40:00 Test Item Value Reference Range Comments MCHC (test code = 691199) 35.3 g/dL 32.0-36.0 MCH (test code = 404740) 33.0 pg 27.0-33.0 MCV (test code = 789132) 93.4 fL 80.0-100.0 Hemoglobin (test code = 019842) 16.1 g/dL 13.2-17.1 RDW (test code = 750537) 14.6 % 11.0-15.0 Hematocrit (test code = 643611) 45.6 % 38.5-50.0 RBC (test code = 164335) 4.88 MIL/uL 4.20-5.80 WBC (test code = 179535) 6.2 K/uL 3.8-10.8 Hepatitis A Antibody, [id number] 14:40:00 Test Item Value Reference Range Comments Hepatitis A Ab, Total (test code = 139049) NON REACTIVE NON R EACTIVE Hepatitis A Ab, Total (test code = 5659721) NON REACTIVE NON REACTIVE Hepatitis A Ab, Total (test code = 2096371) NON REACTIVE NON REACTIVE CMP with Estimated [id number] 14:40:00 Test Item Value Reference Range Comments Chloride (test code = 951934) 107 mmol/L 98-110 Potassium (test code = 203094) 4.1 mmol/L 3.5-5.3 Est GFR, NonAfrican Dominican (test code = 354223) 56 mL/min >=60 Total Protein (test code = 163048) 7.2 g/dL 6.1-8.1 Sodium (test code = 127641) 140 mmol/L 135-146 Glucose (test code = 837862) 104 mg/dL 65-99 Alkaline Phosphatase (test code = 853292) 134 U/L 40-115 Creatinine (test code = 315734) 1.39 mg/dL 0.70-1.33 BUN (test code = 884766) 7 mg/dL 7-25 Est GFR, (test code = 002443) 65 mL/min > =60 Bilirubin, Total (test code = 722893) 1.6 mg/dL 0.2-1.2 CO2 (test code = 690929) 24 mmol/L 20-31 AST/SGOT (test code = 632901) 52 U/L 10-35 Calcium (test code = 100676) 9.9 mg/dL 8.6-10.3 Albumin (test code = 005188) 3.8 g/dL 3.6-5.1 ALT/SGPT (test code = 301675) 46 U/L 9-46 Lipid [id number] 14:40:00 Test Item Value Reference Range Comments Total Chol/HDL Ratio (test code = 582752) 2.9 Ratio <=5.0 HDL Cholesterol (test code = 106673) 65 mg/dL >=40 LDL Cholesterol (Calc) (test code = 691361) 107 mg/dL <130 Cholesterol (test code = 293124) 189 mg/dL 125-200 VLDL Cholesterol (Calc) (test code = 788380) 17 mg/dL <30 Triglycerides (test code = 803087) 86 mg/dL <150 Hemoglobin A1c with [id number] 14:40:00 Test Item Value Reference Range Comments Hemoglobin A1C (test code = 917602) 4.9 % <5.7 eAG (calc) (test code = 776448) 94 mg/dL Prothrombin [id number] 14:40:00 Test Item Value Reference Range Comments INR (test code = 575332) 1.2 PT (test code = 950823) 13.1 sec 9.0-11.5 Hepatitis C Ab w/ Reflex HCVRNA,[id number] 14:40:00 Test Item Value Reference Range Comments Hepatitis C Antibody (test code = 017435) REACTIVE NEGATI VE Hepatitis C Antibody (test code = 9886355) REACTIVE NEGAT SYLVIA Hepatitis C Antibody (test code = 0475382) REACTIVE NEGAT SYLVIA Hep B Surface Ag rflx [id number] 14:40:00 Test Item Value Reference Range Comments Hepatitis B Surface Antigen (test code = 388278) NEGATIVE NEGATIVE Hepatitis B Surface Antigen (test code = 3916440) NEGATIVE NEGATIVE Hepatitis B Surface Antigen (test code = 2626311) NEGATIVE NEGATIVE [id number] 16:52:[address] [address] Patient: ELLE VÁSQUEZ : 1960 Sex: M Address: [address] [place] [address] [place] [address] Unit #: [id number] REQ SEQ #: [id number] Location: [facility] Room #: Ordering: MATEO MCCARTHY PA-C Diagnosis: LOWER BACK PAIN ----- LUMBAR SPINE 3 VIEWS History:LOWER BACK PAIN LOWER BACK PAIN pain after moving. 3 views lumbar spine. Anterior wedging atL1. Loss of vertebral body height is 20%. No retropulsion. Facet arthrosis L4-5 and L5-S1. Disc space narrowing L4-5 and L5-S1. There are no focal destructive changes. Spinous processes and pedicles are unremarkable. Impression: Diffuse degenerative changes with compression deformity at L1 ofuncertain age. Final report electronically signed by: Lizbeth Pickard MD Signed by: LIZBETH PICKARD II, MD 06/27/17 [id number] cc: LIZBETH PICKARD II, MD, JUSTIN PA-C Assessments Condition Name Status Diagnosis Date Treating Clinici an Acute embolism and thrombosis of right Active femoral vein Abnormal results of liver function studies Active Low back pain Active Body mass index (BMI) 35.0-35.9, adult Active Spinal stenosis, cervical region Active Cervicalgia Active Other chronic pain Active Body mass index (BMI) 35.0-35.9, adult Active Radiculopathy, cervical region Active Unspecified cirrhosis of liver Active Thrombocytopenia, unspecified Active Calculus of kidney Active Dysuria Active Tubulo-interstitial nephritis, 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 Radiculopathy, cervical region Active Low back pain Active Major depressive disorder, single episode Active 0 Calculus of kidney Active Dysuria Active Low back pain Active Unspecified renal colic Active Contusion of right front wall of thorax, Active subs encntr Calculus of kidney Active Unspecified renal colic Active Urinary tract infection, site not specified Active Dysuria Active Tubulo-interstitial nephritis, 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 Calculus of kidney Active Unspecified renal colic Active Dysuria Active Calculus of kidney Active Unspecified renal colic Active Thrombocytopenia, unspecified Active Frequency of micturition Active Calculus of kidney Active Unspecified abdominal pain Active Chills (without fever) Active 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 Dysuria Active Other disorders of bilirubin metabolism Active 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 Low back pain Active 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 Essential (primary) hypertension Active Body mass index (BMI) 36.0-36.9, adult Active Other intervertebral disc displacement, Active lumbar region half-way (current) use of anticoagulants Active Essential (primary) hypertension Active Encounter for immunization Active Low back pain Active Other chronic pain Active 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 Acute embolism and thombos unsp deep vn unsp Active lower extremity Encounters Start End Encounter Admission Attending Care Care Encounter Date/Time Date/Time Type Type Clinicians Facility Department ID 2019-02-15 Inpatient NAVID [facility] [id number] 11:00:00 JAYLENE 3 2020-01-24 2020-01-24 Outpatient [facility] [id number] 00:00:00 00:00:00 2020-01-23 2020-01-23 Outpatient [facility] [id number] 16:20:34 16:21:53 [id number] 2020-01-23 2020-01-23 Outpatient [facility] [id number] 10:00:00 10:20:00 2020-01-23 2020-01-23 Outpatient [facility] [id number] 00:00:00 00:00:00 [id number] 2020-01-23 Outpatient [facility] [id number] 00:00:00 00:00:00 [id number] 2020-01-23 Outpatient [facility] [id number] 00:00:00 00:00:00 2020-01-23 2020-01-23 Outpatient [facility] [id number] 00:00:00 00:00:00 2020-01-23 2020-01-23 Outpatient [facility] [id number] 00:00:00 00:00:00 2020-01-19 2020-01-19 Outpatient [facility] [id number] 00:00:00 00:00:00 2020-01-19 2020-01-19 Outpatient [facility] [id number] 00:00:00 00:00:00 2019-10-22 2019-10-22 [facility] [id number] 09:30:00 09:30:00 Lb Children 74-6S0G-1RS s [id number] and 36F Multispecialt y Clinic, 2019-09-22 2019-09-22 [facility] 58 [id number] 08:15:00 08:15:00 Lb Children [id number]-308 s 2-[id number] and 5C3 Multispecialt y Clinic, 2019-09-03 2019-09-03 [facility] 5 [id number] 12:00:00 12:00:00 Ovidio Children A4-93X6-46O s 4-51UDV0MI1 and A5B Multispecialt y Clinic, 2019-08-20 2019-08-20 [facility] 56 [id number] 10:15:00 10:15:00 Lb Children 11-0KK0-841 s [id number] and FAD Multispecialt y Clinic, 2019-08-08 2019-08-17 I 1 Anderson [facility] 20 [id number] 19:40:00 13:59:00 Anderson Hi 2019-07-29 2019-07-29 [facility] 89 [id number] 10:30:00 10:30:00 Lb Children 6C-6ZF8-X5G s [id number] and 11D Multispecialt y Clinic, 2019-07-06 2019-07-06 [facility] B8 [id number] 08:15:00 08:15:00 Lb Children???s 90-49F3 -840 and [id number] Multispecialt 980 y Clini 2019-06-11 2019-06-11 [facility] 94 [id number] 09:45:00 09:45:00 Lb Children???s 0E-46E1 -A73 and [id number] Multispecialt 523 y Clini 2019-05-17 2019-05-17 Emergency ED WOODSON, [facility] [id number] 01:27:00 04:04:00 KAMILLE 8 2019-05-11 2019-05-11 [facility] [id number] 08:30:00 08:30:00 Lb Children???s AC-4C98 -BCC and 3-[id number] Multispecialt AC7 y Clini 2019-05-03 2019-05-03 [facility] 59 [id number] 14:45:00 14:45:00 Lb Children???s CE-457A -82A and [id number] Multispecialt 93C y Clini 2019-05-01 2019-05-01 Emergency ED C 40A CREW CHIEF, [facility] [id number] 16:02:00 19:20:00 MATEO 5 2019-03-25 2019-03-25 [facility] [id number] 10:45:00 10:45:00 Lb Children FC-47CC-984 s 1-[id number] and CBF Multispecialt y Clinic, 2019-03-10 2019-03-11 Emergency ED ORO, [facility] [id number] 23:09:00 03:35:00 KEZIA 9 2019-02-26 2019-02-26 Emergency ED MACIEL, [facility] [id number] 11:26:00 16:23:00 ROBINSON 5 2019-02-24 2019-02-24 Emergency ED ORO, [facility] [id number] 01:03:00 05:22:00 KEZIA 2 2019-02-14 2019-02-15 Emergency ED [facility] [id number] 18:47:00 00:17:00 4 2019-01-30 2019-01-30 Emergency ED MACIEL, [facility] [id number] 09:09:00 12:30:00 ROBINSON 7 2019-01-29 2019-01-30 Emergency ED ORO, [facility] [id number] 23:12:00 02:50:00 KEZIA 7 2019-01-25 2019-01-25 Emergency ED GARCIA, [facility] [id number] 14:48:00 18:34:00 DEIRDRE 9 2019-01-22 2019-01-22 Emergency ED TONY VALLEJO [facility] [id number] 02:10:00 05:54:00 6 2018-11-22 2018-11-22 Emergency ED MACIEL, [facility] [id number] 11:12:00 15:54:00 ROBINSON 2 2018-05-12 2018-05-12 Emergency ED MACIEL, [facility] [id number] 08:06:00 09:18:00 ROBINSON 1 2018-05-02 2018-05-02 Emergency ED GIULIANO, [facility] [id number] 05:17:00 07:00:00 KEZIA 8 2018-04-14 2018-04-14 Emergency ED DATEY, [facility] [id number] 03:03:00 04:28:00 KEENAN 7 2018-04-10 2018-04-10 Emergency ED GARCIA, [facility] [id number] 11:02:00 14:52:00 DEIRDRE 1 2018-04-01 2018-04-01 Emergency ED MACIEL, [facility] [id number] 06:43:00 08:15:00 ROBINSON 5 2017-09-10 2017-09-10 Emergency ED SHARI, [facility] [id number] 18:33:00 20:32:00 MATEO 2 2017-07-27 2017-07-27 Outpatient Alfredo, [facility] [id number] 15:00:00 15:00:00 Silverio [facility] [id number]-N5Y s [id number] and F39 Multispecialt [facility] [place] 2017-07-26 2017-07-26 Emergency ED ALEJANDROZUB, [facility] [id number] 17:42:00 19:43:00 ROBYN 5 2017-07-22 2017-07-22 Emergency ED GARCIA, [facility] [id number] 19:38:00 21:41:00 DEIRDRE 9 2017-07-15 2017-07-15 Outpatient Reinmikhail, [facility] [id number] 10:30:00 10:30:00 Silverio Plasencia [id number] s [id number] and 815 Multispecialt y Clinic, [place] 2017-07-13 2017-07-13 Emergency ED GARCIA, [facility] [id number] 19:42:00 21:48:00 DEIRDRE 6 2017-07-07 2017-07-07 Emergency ED NHAN, [facility] [id number] 18:49:00 21:03:00 NICK 3 2017-06-30 2017-06-30 Outpatient Reindl, [facility] [id number] 14:00:00 14:00:00 Silverio Plasencia [id number]-[id number] s [id number] and A56 Multispecialt y Clinic, [facility]SE 2017-06-27 2017-06-27 Emergency ED GARCIA, [facility] [id number] 15:45:00 17:28:00 DEIRDRE 3 2017-02-16 2017-02-16 Emergency ED DAT, [facility] [id number] 02:41:00 05:56:00 KEENAN 3 Immunizations Ordered Immunization Filled Immunization Date Status Commen ts Refusal Reason Name Name Vaccination Unknown Completed Payers Payer Name Policy Type Policy Number Effective Date Expiration D ate Plan of Treatment Planned Activity Planned Date Details Comments Future Scheduled Test [code = ] Future Scheduled Test [code = ] Future Scheduled Test [code = ] Future Scheduled Test [code = ] Future Scheduled Test [code = ] Future Scheduled Test [code = ] Future Scheduled Test [code = ] Social History This patient has no known social history. Vital Signs Vital Name Observation Time Observation Value Comments WEIGHT 2019-05-17 01:30:00 107.7000 kg HEIGHT 2019-05-17 01:30:00 175.549309 cm WEIGHT 2019-05-17 01:27:00 107.7000 kg HEIGHT 2019-05-17 01:27:00 175.697523 cm WEIGHT 2019-05-01 16:06:00 103.0000 kg HEIGHT 2019-05-01 16:06:00 172.435955 cm WEIGHT 2019-05-01 16:02:00 103.0000 kg HEIGHT 2019-05-01 16:02:00 172.239682 cm WEIGHT 2019-03-10 23:15:00 108.2000 kg HEIGHT 2019-03-10 23:15:00 175.645510 cm WEIGHT 2019-03-10 23:09:00 108.2000 kg HEIGHT 2019-03-10 23:09:00 175.552344 cm WEIGHT 2019-02-26 11:47:00 107.6000 kg HEIGHT 2019-02-26 11:47:00 175.407902 cm WEIGHT 2019-02-26 11:26:00 107.6000 kg HEIGHT 2019-02-26 11:26:00 175.602193 cm WEIGHT 2019-02-24 01:09:00 107.1000 kg HEIGHT 2019-02-24 01:09:00 175.534356 cm WEIGHT 2019-02-24 01:03:00 107.1000 kg HEIGHT 2019-02-24 01:03:00 175.444239 cm WEIGHT 2019-02-14 19:48:00 109.0000 kg HEIGHT 2019-02-14 19:48:00 175.036025 cm WEIGHT 2019-02-14 18:47:00 109.0000 kg HEIGHT 2019-02-14 18:47:00 175.188925 cm WEIGHT 2019-01-30 09:14:00 108.4000 kg HEIGHT 2019-01-30 09:14:00 175.453511 cm WEIGHT 2019-01-30 09:09:00 108.4000 kg HEIGHT 2019-01-30 09:09:00 175.571634 cm WEIGHT 2019-01-30 00:18:00 108.4000 kg HEIGHT 2019-01-30 00:18:00 175.158920 cm WEIGHT 2019-01-29 23:12:00 108.4000 kg HEIGHT 2019-01-29 23:12:00 175.933659 cm HEIGHT 2019-01-25 15:28:00 175.384753 cm WEIGHT 2019-01-25 15:28:00 109.0000 kg WEIGHT 2019-01-25 14:48:00 109.0000 kg HEIGHT 2019-01-25 14:48:00 175.482862 cm WEIGHT 2019-01-22 02:16:00 109.5000 kg HEIGHT 2019-01-22 02:16:00 175.618367 cm WEIGHT 2019-01-22 02:10:00 109.5000 kg HEIGHT 2019-01-22 02:10:00 175.976126 cm WEIGHT 2018-11-22 11:41:00 106.8000 kg HEIGHT 2018-11-22 11:41:00 175.324156 cm WEIGHT 2018-11-22 11:12:00 106.8000 kg HEIGHT 2018-11-22 11:12:00 175.787631 cm WEIGHT 2018-05-12 08:12:00 110.9000 kg HEIGHT 2018-05-12 08:12:00 175.215406 cm WEIGHT 2018-05-12 08:06:00 110.9000 kg HEIGHT 2018-05-12 08:06:00 175.495832 cm WEIGHT 2018-05-02 05:20:00 113.6000 kg HEIGHT 2018-05-02 05:20:00 175.928391 cm WEIGHT 2018-05-02 05:17:00 113.6000 kg HEIGHT 2018-05-02 05:17:00 175.192131 cm WEIGHT 2018-04-14 03:07:00 110.5000 kg HEIGHT 2018-04-14 03:07:00 175.810902 cm WEIGHT 2018-04-14 03:03:00 110.5000 kg HEIGHT 2018-04-14 03:03:00 175.962188 cm WEIGHT 2018-04-10 11:05:00 109.5000 kg HEIGHT 2018-04-10 11:05:00 175.097802 cm WEIGHT 2018-04-10 11:02:00 109.5000 kg HEIGHT 2018-04-10 11:02:00 175.093494 cm WEIGHT 2018-04-01 07:09:00 111.2000 kg HEIGHT 2018-04-01 07:09:00 175.709769 cm WEIGHT 2018-04-01 06:43:00 111.2000 kg HEIGHT 2018-04-01 06:43:00 175.519073 cm WEIGHT 2017-09-10 18:45:00 109.900 kg HEIGHT 2017-09-10 18:45:00 175.033449 cm WEIGHT 2017-09-10 18:33:00 109.900 kg HEIGHT 2017-09-10 18:33:00 175.276071 cm WEIGHT 2017-07-26 17:47:00 110.000 kg HEIGHT 2017-07-26 17:47:00 175.496463 cm WEIGHT 2017-07-26 17:42:00 110.000 kg HEIGHT 2017-07-26 17:42:00 175.447624 cm WEIGHT 2017-07-22 20:02:00 109.600 kg WEIGHT 2017-07-22 19:38:00 109.600 kg WEIGHT 2017-07-13 19:56:00 109.500 kg HEIGHT 2017-07-13 19:56:00 175.459677 cm WEIGHT 2017-07-13 19:42:00 109.500 kg HEIGHT 2017-07-13 19:42:00 175.384415 cm WEIGHT 2017-07-07 18:53:00 107.200 kg HEIGHT 2017-07-07 18:53:00 175.841272 cm WEIGHT 2017-07-07 18:49:00 107.200 kg HEIGHT 2017-07-07 18:49:00 175.476874 cm WEIGHT 2017-06-27 15:58:00 110.100 kg WEIGHT 2017-06-27 15:45:00 110.100 kg WEIGHT 2017-02-16 03:02:00 114.700 kg HEIGHT 2017-02-16 03:02:00 175.594357 cm WEIGHT 2017-02-16 02:41:00 114.700 kg HEIGHT 2017-02-16 02:41:00 175.030553 cm
== END 2020-08-07 20:12 | disposition left against medical advice (07) ==
LOC: ER 16:22
DX: M54.9 Dorsalgia, unspecified (principal); R31.9 Hematuria, unspecified; E78.00 Pure hypercholesterolemia, unspecified; I10 Essential (primary) hypertension; Z88.3 Allergy status to other anti-infective agents; Z88.6 Allergy status to analgesic agent; Z86.718 Personal history of other venous thrombosis and embolism; Z86.19 Personal history of other infectious and parasitic diseases
CPT/HCPCS: 36415; 81001; 87070; 87086; 99281

== ENCOUNTER 2020-08-07 22:57 | Emergency (ER) | payer MEDICARE ==
--- NOTE | 2020-08-07 23:22 | ER Document Report ---
ED Medical Screen (RME) - General Chief Complaint: Back Pain Stated Complaint: BACK PAIN Time Seen by Provider: 08/07/20 23:13 Primary Care Provider: STEVEN VILLALOBOS MD [Primary Care Provider] - Follow up as needed Mode of Arrival: Ambulatory Information source: Patient Notes: HPI; 59-year-old male past medical history significant for hepatitis C and kidney stones with multiple visits for the same who is also seen here twice earlier today and left without finishing treatment presents emergency room tonight complaining of persistent worsening of flank pain and hematuria that has been off and on for the past several months. States he was sent in by over a month ago had stents put in but has not followed up with urology. States he is currently on Percocet for his chronic back pain which is not alleviating his current pain. He denies any nausea, vomiting. PE: Alert and oriented x3. Mild distress noted. Lungs: Clear to auscultation without rales, rhonchi, wheezes. Heart: Regular rate rhythm without murmurs, rubs, gallops. Positive for bilateral CVA tenderness. I have greeted and performed a rapid initial assessment of this patient. A comprehensive ED assessment and evaluation of the patient, analysis of test results and completion of the medical decision making process will be conducted by additional ED providers. I have specifically instructed the patient or family members with the patient to immediately return to any nursing staff should anything change in the patient's condition or with their chief complaint. TRAVEL OUTSIDE OF THE [place] IN LAST 30 DAYS: No - Related Data Allergies/Adverse Reactions: erythromycin base Allergy (Verified 08/07/20 23:13) hydromorphone [From Dilaudid] Adverse Reaction (Verified 08/07/20 23:13) palpations ketorolac [From Toradol] Adverse Reaction (Verified 08/07/20 23:13) Past Medical History - Social History Frequency of alcohol use: None Drug Abuse: None - Past Medical History Cardiac Medical History: Reports: Hx DVT, Hx Hypercholesterolemia, Hx Hypertension Neurological Medical History: Reports: Hx Cerebrovascular Accident - TIA Endocrine Medical History: Denies: Hx Diabetes Mellitus Type 2 Renal/ Medical History: Reports: Hx Kidney Stones. Denies: Hx Peritoneal Dialysis GI Medical History: Reports: Hx Cirrhosis, Hx Hepatitis - History of hepatitis C. He has had treatment. Musculoskeltal Medical History: Reports Hx Arthritis Psychiatric Medical History: Reports: Hx Post Traumatic Stress Disorder Infectious Medical History: Reports: Hx Hepatitis - History of hepatitis C. He has had treatment. Past Surgical History: Reports: Hx Abdominal Surgery - hernia, Hx Appendectomy, Hx Cholecystectomy, Hx Herniorrhaphy, Hx Kidney (Renal Surgery) - kidney stones, bilateral ureteral stents on 02/08/2019, right stent removal, Hx Orthopedic Surgery - Has had cervical spine surgery, right Knee Replacement, Hx Vascular Surgery - removal of DVTs in legs, IVC filter placed - Immunizations Immunizations up to date: Yes Hx Diphtheria, Pertussis, Tetanus Vaccination: Yes Physical Exam - Vital signs Vitals: Temp Pulse Resp BP Pulse Ox 98.3 F 65 17 157/75 H 100 08/07/20 23:03 08/07/20 23:03 08/07/20 23:03 08/07/20 23:03 08/07/20 23:03 Course - Vital Signs Vital signs: Temp Pulse Resp BP Pulse Ox 98.3 F 65 17 157/75 H 100 08/07/20 23:03 08/07/20 23:03 08/07/20 23:03 08/07/20 23:03 08/07/20 23:03 Doctor's Discharge - Discharge Referrals: STEVEN VILLALOBOS MD [Primary Care Provider] - Follow up as needed
--- NOTE | 2020-08-08 02:02 | RADIOLOGY REPORT (SQ) ---
EXAM DESCRIPTION: CT ABD/PELVIS NO ORAL OR IV CLINICAL HISTORY: 59 years Male; flank pain TECHNIQUE: CT of the abdomen and pelvis without intravenous contrast.. Oral contrastWas not used. All CT scans at this facility use dose modulation, iterative reconstruction, and/or weight based dosing when appropriate to reduce radiation dose to as low as reasonably achievable. This exam was performed according to our department optimization program which includes automated exposure control, adjustment of the mA and/or kv according to patient size and/or use of iterative reconstruction technique. COMPARISON: Unenhanced CT scan of the abdomen and pelvis July 04, 2020 FINDINGS: Lower chest: Mild perihilar airways thickening. No focal consolidation. Heart size is within normal limits. No pericardial abnormality. Abdomen: Liver and biliary tree: The unenhanced liver is unremarkable. The gallbladder surgically absent. Overall liver is small in size. Pancreas: Normal Spleen: Spleen is enlarged measuring 15.5 cm in diameter. There are multiple tortuous vessels at the splenic hilum suggesting varices. These appear to communicate with the left renal vein. Kidneys: A left-sided double-J ureteral stent is in place. This stent is coiled in the renal pelvis and in the bladder. There is mild left-sided hydronephrosis and hydroureter which is similar to the previous exam. No definitive left-sided stone. In the lower pole of the right kidney is a 9 mm nonobstructing stone. Adrenal glands:Within normal limits Vascular structures: There are scattered vascular calcifications in the aorta. There appears to be varices at the splenic hilum communicating with the left renal vein. There may be recanalization of the umbilical vein in the liver. Retroperitoneum: Edema is present in the retroperitoneum and there is nonspecific small lymph nodes. The appearance is similar to the previous exam. Abdominal wall: Postsurgical change in the right inguinal region consistent with hernia repair with mesh. There is attenuation of the linea alba in the anterior abdominal wall which is stable. GI:Bowel is of normal caliber. No focal bowel wall thickening. No obstruction. Appendix: The appendix is not clearly seen. General: Edema is present in the mesentery. No definitive ascites. No free air. Pelvis: Lymph nodes: No mass or lymphadenopathy Bladder: Ureteral stent is in the bladder. Pelvis: No pelvic mass or adenopathy. Bones: No acute destructive osseous changes. IMPRESSION: 1. Findings suggestive of cirrhosis and portal hypertension with a spontaneous splenorenal shunt. 2. Left-sided ureteral stent remains in place with associated mild hydronephrosis and hydroureter. The appearance is stable. 3. Nonobstructing right kidney stone. 4. Edema throughout the root of the mesentery with small lymph nodes. The appearance is stable.
[2020-08-08] MEDS ORDERED: AMOXICILLIN TR/POT CLAVULANATE 875-125 MG TAB PO ONE (09:50)
[2020-08-08] MEDS ORDERED: MORPHINE SULFATE 10 MG/ML INJ IM ONE (09:50)
--- NOTE | 2020-08-08 09:57 | ER Document Report ---
ED General - General Chief Complaint: Back Pain Stated Complaint: BACK PAIN Time Seen by Provider: 08/07/20 23:13 Primary Care Provider: STEVEN VILLALOBOS MD [Primary Care Provider] - Follow up as needed Mode of Arrival: Ambulatory Information source: Patient TRAVEL OUTSIDE OF THE [place] IN LAST 30 DAYS: No - HPI Notes: Patient presents complaining of back pain. He states it starts on the left and radiates across to the right. It is been constant. Nothing makes it better or worse. He believes it is due to the stents that he had placed in his ureters several months ago. He is still not had the left stent removed. He currently does not have any scheduled urology follow-up. He states he is having some blood in his urine as well. He is not on a blood thinner. No fevers sweats or chills. No vomiting or diarrhea. - Related Data Allergies/Adverse Reactions: erythromycin base Allergy (Verified 08/07/20 23:13) hydromorphone [From Dilaudid] Adverse Reaction (Verified 08/07/20 23:13) palpations ketorolac [From Toradol] Adverse Reaction (Verified 08/07/20 23:13) Past Medical History - General Information source: Patient - Social History Smoking Status: Current Every Day Smoker Frequency of alcohol use: None Drug Abuse: None Family History: Reviewed & Not Pertinent - Past Medical History Cardiac Medical History: Reports: Hx DVT, Hx Hypercholesterolemia, Hx Hypertension Neurological Medical History: Reports: Hx Cerebrovascular Accident - TIA Endocrine Medical History: Denies: Hx Diabetes Mellitus Type 2 Renal/ Medical History: Reports: Hx Kidney Stones. Denies: Hx Peritoneal Dialysis GI Medical History: Reports: Hx Cirrhosis, Hx Hepatitis - History of hepatitis C. He has had treatment. Musculoskeletal Medical History: Reports Hx Arthritis Psychiatric Medical History: Reports: Hx Post Traumatic Stress Disorder Infectious Medical History: Reports: Hx Hepatitis - History of hepatitis C. He has had treatment. Past Surgical History: Reports: Hx Abdominal Surgery - hernia, Hx Appendectomy, Hx Cholecystectomy, Hx Herniorrhaphy, Hx Kidney (Renal Surgery) - kidney stones, bilateral ureteral stents on 02/08/2019, right stent removal, Hx Orthopedic Surgery - Has had cervical spine surgery, right Knee Replacement, Hx Vascular Surgery - removal of DVTs in legs, IVC filter placed - Immunizations Immunizations up to date: Yes Hx Diphtheria, Pertussis, Tetanus Vaccination: Yes Review of Systems - Review of Systems Constitutional: denies: Chills, Fever Cardiovascular: denies: Chest pain, Palpitations Gastrointestinal: denies: Diarrhea, Vomiting -: Yes All other systems reviewed and negative Physical Exam - Vital signs Vitals: Temp Pulse Resp BP Pulse Ox 98.3 F 65 17 157/75 H 100 08/07/20 23:03 08/07/20 23:03 08/07/20 23:03 08/07/20 23:03 08/07/20 23:03 Interpretation: Hypertensive - General General appearance: Appears well, Alert - HEENT Head: Normocephalic, Atraumatic Eyes: Normal Pupils: PERRL - Respiratory Respiratory status: No respiratory distress Chest status: Nontender Breath sounds: Normal Chest palpation: Normal - Cardiovascular Rhythm: Regular Heart sounds: Normal auscultation Murmur: No - Abdominal Inspection: Normal Distension: No distension Bowel sounds: Normal Tenderness: Nontender Organomegaly: No organomegaly - Back Back: Normal, Tender - Diffusely tender to palpation in the mid lumbar area - Extremities General upper extremity: Normal inspection, Nontender, Normal color, Normal ROM, Normal temperature General lower extremity: Normal inspection, Nontender, Normal color, Normal ROM, Normal temperature, Normal weight bearing. No: Carole's sign - Neurological Neuro grossly intact: Yes Cognition: Normal Orientation: AAOx4 [place] Coma Scale Eye Opening: Spontaneous [place] Coma Scale Verbal: Oriented [place] Coma Scale Motor: Obeys Commands [place] Coma Scale Total: 15 Speech: Normal Motor strength normal: LUE, RUE, LLE, RLE Sensory: Normal - Psychological Associated symptoms: Normal affect, Normal mood - Skin Skin Temperature: Warm Skin Moisture: Dry Skin Color: Normal Course - Re-evaluation Re-evalutation: 08/08/20 09:54 Patient presents with back pain he does currently have a stent in place however this appears stable. He does have some blood and white cells in the urine. I will place him on some antibiotics and home with pain medication. I did call and discussed the case with the urologist from in [place]. He will follow-up in the office. Patient has no elevated white blood cell count or fevers. He is nontoxic-appearing. His vitals are stable. His creatinine is also normal. - Vital Signs Vital signs: Temp Pulse Resp BP Pulse Ox 98.3 F 59 L 17 153/74 H 100 08/07/20 23:03 08/08/20 06:23 08/07/20 23:03 08/08/20 06:23 08/08/20 06:23 - Diagnostic Test Radiology reviewed: Image reviewed, Reports reviewed Discharge - Discharge Clinical Impression: Ureteral stent retained UTI (urinary tract infection) Qualifiers: Urinary tract infection type: site unspecified Hematuria presence: with hematuria Qualified Code(s): N39.0 - Urinary tract infection, site not specified; R31.9 - Hematuria, unspecified Condition: Stable Disposition: HOME, SELF-CARE Instructions: Oral Narcotic Medication ([facility]), Urinary Tract Infection ([facility]) Prescriptions: Cefdinir 300 mg PO BID 7 Days #14 capsule Oxycodone HCl 5 mg PO Q6 PRN 3 Days #12 capsule PRN Reason: For Pain Forms: Return to Work Referrals: CARLIN DELGADO MD [NO LOCAL MD] - Follow up in 3-5 days
[2020-08-08 10:11] VITALS: BP 153/94
--- OUTSIDE RECORDS SUMMARY | 2020-08-09 17:58 | XMS REPORT ---
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 Ecologist Muscle 0*) 750 Mg 00 Spasm Tablet Prednisone Yes [place] 10 Taper 5 (Deltasone 8-04 Pa-C Day Taper*) 10 00:00: [employer] Research Ecologist Mg Tablet 00 Acetaminoph 2019- No Ayana M 1 Every 6 en/Hydrocod 6-01 06-05 Pa-C Niurka Hours as one Bitart 00:00: 00:00 needed for ([place]*) 00 :00 Pain 5/325MG Tab, 1 Tab Oral Acetaminoph Yes Kezia 1 Every 4 T o en/Hydrocod 02-24 [place] 6 Hours as one Bitart 00:00: Do needed for ([place]*) 00 Pain 5/325MG Tab Pantoprazol 2018- No Kezia 20 Daily e* 02-2414 [place] Before (Protonix*) 00:00: 00:00 Do Breakfast 20 Mg 00 :00 Tablet.dr, 20 Mg Oral Cephalexin 2018- No [place]zia 500 Twice Per (Keflex*) 02-2407 [place] Day 500 Mg 00:00: 00:00 Do Capsule, 00 :00 500 Mg Oral Ondansetron Yes [place] D 4 Every 8 Hcl (Zofran 5-21 Pa-C Baith Hours as Odt*) 4 Mg 00:00: needed for Odt 00 Nausea/Vom iting Oxycodone/A Yes [place] D 1 Every 6 cetaminophe 5-21 Pa-C [...] 5 Mg/325 Mg Tab Omeprazole 2018- No [place] 40 Daily (Prilosec*) 11-22 Maciel Do Before [...] Pa-C Hours as n (Percocet 00:00: 00:00 [employer] Ecologist needed for 5/325 Mg*) 00 :00 Pain 5 Mg/325 Mg Tab, 1-2 Tab Oral Methocarbam 2016-09- No [place] 500 Four Times ol 11-11-18 Pa-C Daily as (Robaxin*) 00:00: 00:00 [employer] Ecologist needed for 500 Mg Tab, 00 :00 Muscle 500 Mg Oral Spasm Prednisone 2016-09- No [place] 10 Taper 5 (Deltasone 11-11- Pa-C Day Taper*) 10 00:00: 00:00 [employer] Ecologist Mg Tablet, 00 :00 10 Mg Oral [...] 02-16 05:42: 00 No known No known [id number] active active problems problems Procedures Procedure Date [...] COMPLETE CBC W/AUTO DIFF WBC 2019-01-25 00:00:00 DIERDRE GARCIA PA-C MEASURE BLOOD OXYGEN LEVEL 2019-01-25 [...] NOT DETECTED IU/mL NOT DETECTED code = 33105276) HCV RNA, QUANTITATIVE REAL TIME PCR (test <1.18 NOT DETECTED Log IU/mL NOT DETECTED code = 59966932) [id number] 13:49:0077HEPATITIS PANEL, ACUTE W/REFLEX TO CONFIRMATION 2019-10-24 13:49:00 Test Item Value Reference Range Comments HEPATITIS A IGM (test code = 65448421) NON-REACTIVE NON-REACT SYLVIA HEPATITIS B SURFACE ANTIGEN (test code = NON-REACTIVE NON-BROOKE CTIVE 5196-1) HEPATITIS B CORE ANTIBODY (IGM) (test code = NON-REACTIVE NON -REACTIVE 12480184) SIGNAL TO CUT-OFF (test code = 96492654) 32.70 <1.00 HEPATITIS C ANTIBODY (test code = 70247255) REACTIVE NON- REACTIVE [id number] 13:49:0030AMMONIA (P)2019-10-24 13:49:0068COMPREHENSIVE METABOLIC [id number] 13:49:00 Test Item Value Reference Range Comments CALCIUM (test code = 27602767) 8.0 mg/dL 8.6-10.3 UREA NITROGEN (BUN) (test code = 12 mg/dL 7-25 20695946) CARBON DIOXIDE (test code = 09032629) 25 mmol/L 20-32 ALBUMIN (test code = 50778355) 2.8 g/dL 3.6-5.1 SODIUM (test code = 21471244) 141 mmol/L 135-146 GLOBULIN (test code = 75414406) 3.0 g/dL (calc) 1.9-3.7 CHLORIDE (test code = 55690614) 112 mmol/L 98-110 ALKALINE PHOSPHATASE (test code = 68 U/L 40-115 90944843) eGFR (test code = 108 mL/min/1.73m2 > OR = 60 84271739) PROTEIN, TOTAL (test code = 49194926) 5.8 g/dL 6.1-8.1 AST (test code = 78828093) 29 U/L 10-35 ALBUMIN/GLOBULIN RATIO (test code = 0.9 (calc) 1.0-2.5 50210155) BUN/CREATININE RATIO (test code = NOT APPLICABLE (calc) 6-22 16490323) GLUCOSE (test code = 51792590) 191 mg/dL 65-139 ALT (test code = 77616006) 19 U/L 9-46 eGFR NON-AFR. RWANDAN (test code = 93 mL/min/1.73m2 > OR = 60 72121304) CREATININE (test code = 03254766) 0.89 mg/dL 0.70-1.25 BILIRUBIN, TOTAL (test code = 0.8 mg/dL 0.2-1.2 48769952) POTASSIUM (test code = 00868271) 3.8 mmol/L 3.5-5.3 CULTURE, URINE, HXQVLHO1414-83-83 08:27:00SEE SZXSKTK0091-43-92 11:32:0052LIPASE 2019-07-29 11:32:0084B TYPE NATRIURETIC PEPTIDE (BNP)2019-07-29 11:32:0025CBC (H/H, RBC, INDICES, WBC, PLT)2019-07-29 11:32:00 Test Item Value Reference Range Comments RDW (test code = 52350061) 13.6 % 11.0-15.0 MCV (test code = 72378282) 93.1 fL 80.0-100.0 MCH (test code = 42677463) 32.7 pg 27.0-33.0 WHITE BLOOD CELL COUNT (test code = 5.4 Thousand/uL 3.8-10.8 37315759) PLATELET COUNT (test code = 02111169) 54 Thousand/uL 140-400 HEMOGLOBIN (test code = 50176281) 11.3 g/dL 13.2-17.1 MCHC (test code = 03854387) 35.1 g/dL 32.0-36.0 MPV (test code = 80302931) 13.1 fL 7.5-12.5 RED BLOOD CELL COUNT (test code = 47316994) 3.46 Million/uL 4.20 -5.80 HEMATOCRIT (test code = 16827942) 32.2 % 38.5-50.0 RDOLNEG5150-36-24 11:32:0098COMPREHENSIVE METABOLIC WUVCV1132-43-77 11:32:00 Test Item Value Reference Range Comments BILIRUBIN, TOTAL (test code = 0.8 mg/dL 0.2-1.2 88608361) UREA NITROGEN (BUN) (test code = 8 mg/dL 7-25 96264755) ALT (test code = 97325249) 22 U/L 9-46 eGFR NON-AFR. RWANDAN (test code = 99 mL/min/1.73m2 > OR = 60 46869361) CARBON DIOXIDE (test code = 39303135) 26 mmol/L 20-32 SODIUM (test code = 61597200) 140 mmol/L 135-146 AST (test code = 77374747) 36 U/L 10-35 ALBUMIN (test code = 06687472) 3.1 g/dL 3.6-5.1 GLOBULIN (test code = 02457429) 3.0 g/dL (calc) 1.9-3.7 PROTEIN, TOTAL (test code = 27263327) 6.1 g/dL 6.1-8.1 ALKALINE PHOSPHATASE (test code = 94 U/L 40-115 74768344) ALBUMIN/GLOBULIN RATIO (test code = 1.0 (calc) 1.0-2.5 55856305) BUN/CREATININE RATIO (test code = NOT APPLICABLE (calc) 6-22 65301655) CALCIUM (test code = 87991604) 8.5 mg/dL 8.6-10.3 POTASSIUM (test code = 05483975) 4.1 mmol/L 3.5-5.3 CREATININE (test code = 73192575) 0.77 mg/dL 0.70-1.33 eGFR (test code = 115 mL/min/1.73m2 > OR = 60 27083755) CHLORIDE (test code = 18969007) 110 mmol/L 98-110 GLUCOSE (test code = 11858048) 81 mg/dL 65-139 CULTURE, URINE, [id number] 11:32:00SEE NOTECULTURE, URINE, ROUTINE 2019-07-06 09:03:00SEE AZJGKAWBZJHEKJ2405-93-01 03:26:[address] [id number] Patient: ELLE VÁSQUEZ : 1960 Sex: M Address: [address] [place] [address] [place] [address] [id number] Unit #: [id number] [facility] SEQ #: [id number] Location: ED Room #: Ordering: KAMILLE WOODSON [...] 0322 cc: KAMILLE WOODSON WILLIAM MDBedside Troponin [id number] 03:13:00 Test Item Value Reference Range Comments Bedside Troponin I (test code = Bedside Troponin I) 0.01 0.03-0.118 White Blood Beysi1600-81-02 03:08:00 Test Item Value Reference Range Comments Blood leukocytes automated count (number/volume) (test 3.0 3.6-11.1 code = 6690-2) Red Blood Cwrhy4267-08-64 03:08:00 Test Item Value Reference Range Comments Blood erythrocytes automated count (number/volume) 3.32 4.27-5.49 (test code = 789-8) Dxqrptisba2823-31-29 03:08:00 Test Item Value Reference Range Comments Blood hemoglobin measurement (mass/volume) (test code 11.2 12.9-16.1 = 718-7) Usrgoaohkf8540-42-59 03:08:00 Test Item Value Reference Range Comments Automated blood hematocrit (volume fraction) (test 31.9 37.7-46.5 code = 4544-3) Mean Corpuscular Xveqpp6728-97-10 03:08:00 Test Item Value Reference Range Comments Automated erythrocyte mean corpuscular volume (test 96.1 79.3-94.8 code = 787-2) Mean Corpuscular Vsyajswvfg2143-32-54 03:08:00 Test Item Value Reference Range Comments Automated erythrocyte mean corpuscular hemoglobin 33.6 26.8-33.2 (mass per erythrocyte) (test code = 785-6) Mean Corpuscular Hemoglobin Idevotq9724-21-39 03:08:00 Test Item Value Reference Range Comments Automated erythrocyte mean corpuscular hemoglobin 34.9 33.5-35.5 concentration measurement (mass/volume) (test code = 786-4) Red Cell Distribution Xanbs0351-28-05 03:08:00 Test Item Value Reference Range Comments Automated erythrocyte distribution width ratio (test 15.4 12.0-15.1 code = 788-0) Platelet Acdro5878-00-08 03:08:00 Test Item Value Reference Range Comments Automated blood platelet count 38 165-353 C ALLED BY Samantha Robin at (count/volume) (test code = 0337 TO JUAN F ZAPATA RN AND 777-3) R/V. Platelet co unt verified by slide estimate. Mean Platelet Jjvabg1607-33-37 03:08:00 Test Item Value Reference Range Comments Automated blood platelet mean volume measurement (test 9.0 7.5-10.6 code = 32358-7) Neutrophils (%) (Auto)2019-05-17 03:08:00 Test Item Value [...] (test 0.0 0.0-0.1 code = 704-7) Sodium Qxzul0320-28-06 03:08:00 Test Item Value Reference Range Comments Sodium blood (test code = 632812076) 142 137-144 Potassium Uahrg6024-27-49 03:08:00 Test Item Value Reference Range Comments Potassium blood (test code = 394170987) 3.4 3.1-5.1 Chloride Wcihp6402-81-96 03:08:00 Test Item Value Reference Range Comments Chloride blood (test code = 731094789) 110 101-110 Carbon Dioxide Wsqfl9701-65-97 03:08:00 Test Item Value Reference Range Comments Carbon dioxide blood (test code = 11211131) 26 22-2 9 Glucose Dbjzb7348-89-71 03:08:00 Test Item Value Reference Range Comments Glucose blood (test code = 14334076) 147 70-105 Blood Urea Lqwgaqvl9348-76-65 03:08:00 Test Item Value Reference Range Comments BUN (test code = 367954593) 8.0 8.4-25.7 Nxpbexjhib0846-53-49 03:08:00 Test Item Value Reference Range Comments Creatinine blood (test code = 351114433) 0.77 0.72-1. 25 Estimated Creatinine Clearance Kovx9512-24-22 03:08:00 Test Item Value Reference Range Comments Estimation of creatinine 124.92 PT Ht: 175.26cm, PT Wt: clearance (test code = 107.7KG 863787547) Anion Duc0034-51-86 03:08:00 Test Item Value Reference Range Comments Anion gap measurement (test code = 78184998) 9 7-1 6 Calcium Lhzyk8185-36-97 03:08:00 Test Item Value Reference Range Comments Calcium (test code = 82556371) 8.4 8.4-10.2 Total Jhclgvgld7790-18-53 03:08:00 Test Item Value Reference Range Comments Total bilirubin (test code = NOF8707) 1.6 0.1-1.2 Total Wyrbqvf8034-01-36 03:08:00 Test Item Value Reference Range Comments Total protein blood (test code = 2885-2) 5.8 6.0-8.3 Hgabcms8254-79-07 03:08:00 Test Item Value Reference Range Comments Albumin (test code = CAZ2494) 2.8 3.2-5.2 Padaushd6485-79-18 03:08:00 Test Item Value Reference Range Comments Plasma globulin measurement (mass/volume) (test code = 3.0 2.6-4.6 66127-4) Albumin/Globulin Axqzs3786-80-55 03:08:00 Test Item Value Reference Range Comments Albumin to globulin ratio (test code = 008009) 0.9 1 .1-2.5 Aspartate Amino Transf (AST/SGOT)2019-05-17 03:08:00 Test Item Value Reference Range Comments AST (SGOT) ser/plas (test code = 22011079) 62 5-34 Alkaline Ogzrlnrifeu2676-79-53 03:08:00 Test Item Value Reference Range Comments Alkaline phosphatase (test code = 17118475) 89 40-1 50 Alanine Aminotransferase (ALT/SGPT)2019-05-17 03:08:00 Test Item Value Reference Range Comments ALT (SGPT) ser/plas (test code = 1742-6) 35 0-55 B-Type Natriuretic Gyjmzqf6809-60-79 03:08:00 Test Item Value Reference Range Comments Brain natriuretic peptide (test code = 562034663) Pending CULTURE, URINE, OZWDJRR6996-33-37 10:22:00SEE NOTECBC (INCLUDES DIFF/PLT) 2019-05-03 16:08:00 Test Item Value Reference Range Comments MCH (test code = 85136519) 32.8 pg 27.0-33.0 EOSINOPHILS (test code = 3.3 % 45230051) COMMENT(S) (test code = Review of peripheral smear 05079643) confirms automated results. RED BLOOD CELL COUNT (test code 3.81 Million/uL 4.20-5.80 = 19863952) ABSOLUTE NEUTROPHILS (test code 2960 cells/uL 9845-3568 = 13118150) HEMATOCRIT (test code = 36.8 % 38.5-50.0 95923789) MONOCYTES (test code = 8.6 % 17560962) MCV (test code = 43462831) 96.6 fL 80.0-100.0 WHITE BLOOD CELL COUNT (test 4.9 Thousand/uL 3.8-10.8 code = 75730326) PLATELET COUNT (test code = 43 Thousand/uL 140-400 39092322) ABSOLUTE LYMPHOCYTES (test code 1338 cells/uL 850-3900 = 57353649) BASOPHILS (test code = 0.4 % 52253777) MPV (test code = 82956805) 12.7 fL 7.5-12.5 LYMPHOCYTES (test code = 27.3 % 23984087) NEUTROPHILS (test code = 60.4 % 27932033) ABSOLUTE EOSINOPHILS (test code 162 cells/uL 15-500 = 09049740) ABSOLUTE BASOPHILS (test code = 20 cells/uL 0-200 96999817) ABSOLUTE MONOCYTES (test code = 421 cells/uL 200-950 72444488) MCHC (test code = 57219852) 34.0 g/dL 32.0-36.0 RDW (test code = 39213994) 13.5 % 11.0-15.0 HEMOGLOBIN (test code = 12.5 g/dL 13.2-17.1 08294926) C-REACTIVE PDDHVIS8902-22-38 16:08:0010.7BASIC METABOLIC VWREU9141-99-22 16:08:00 Test Item Value Reference Range Comments CARBON DIOXIDE (test code = 38543590) 26 mmol/L 20-32 GLUCOSE (test code = 91232730) 129 mg/dL 65-139 POTASSIUM (test code = 35807688) 3.6 mmol/L 3.5-5.3 eGFR NON-AFR. RWANDAN (test code = 100 mL/min/1.73m2 > OR = 60 63111334) CALCIUM (test code = 63991618) 9.5 mg/dL 8.6-10.3 eGFR (test code = 116 mL/min/1.73m2 > OR = 60 88999928) SODIUM (test code = 52037402) 140 mmol/L 135-146 BUN/CREATININE RATIO (test code = NOT APPLICABLE (calc) 6-22 ) CHLORIDE (test code = 01424467) 108 mmol/L 98-110 UREA NITROGEN (BUN) (test code = 7 mg/dL 7-25 ) CREATININE (test code = 31894607) 0.75 mg/dL 0.70-1.33 UDS - POC Test\S\2019-05-03 14:45:00 Test Item Value Reference Range Comments UDS - POC Test (test code = UDSPOC) negative VGOUDVVUC8436-69-84 19:04:[address] [address] Patient: ELLE VÁSQUEZ : 1960 Sex: M Address: [address] [place] [address] [place] [address] [id number] Unit #: [id number] RE SEQ #: [id number] Location: [facility] Room #: Ordering: MATEO MCCARTHY PA-C Diagnosis: NECK PAIN - CERVICAL SPINE 3 VIEWS History: NECK PAIN NECK PAIN 3 view cervical spine. C1-C2 articulation is normal. Cervical spondylosis C5-6 andC6-7. Cervical facet arthrosis upper cervical spine. No fracture no subluxation. Lung apices areclear. IMPRESSION: No acute abnormality. Final report electronically signed by: Lizbeth Pickard MD Signed by: LIZBETH PICKARD II, MD 05/01/19 0784 cc: LIZBETH PICKARD II, MD, JUSTIN PA-CPROTHROMBIN JHOY-HGV2064-02-28 13:23:00 Test Item Value Reference Range Comments PT (test code = 75158992) 13.4 sec 9.0-11.5 INR (test code = 66630911) 1.3 CBC (INCLUDES DIFF/PLT)2019-03-25 11:48:00 Test Item Value Reference Range Comments NEUTROPHILS (test code = 71.7 % 62285177) MCHC (test code = 11413278) 35.9 g/dL 32.0-36.0 ABSOLUTE MONOCYTES (test code = 589 cells/uL 200-950 52345930) BASOPHILS (test code = 0.3 % 53561904) MONOCYTES (test code = 9.5 % 65878502) WHITE BLOOD CELL COUNT (test 6.2 Thousand/uL 3.8-10.8 code = 73920377) PLATELET COUNT (test code = 61 Thousand/uL 140-400 20937496) RDW (test code = 21949387) 13.7 % 11.0-15.0 COMMENT(S) (test code = Review of peripheral smear 02268759) confirms automated results. ABSOLUTE LYMPHOCYTES (test code 1029 cells/uL 850-3900 = 87226474) HEMOGLOBIN (test code = 12.4 g/dL 13.2-17.1 78409866) LYMPHOCYTES (test code = 16.6 % 36311260) MCH (test code = 83446273) 32.9 pg 27.0-33.0 MCV (test code = 40030753) 91.5 fL 80.0-100.0 RED BLOOD CELL COUNT (test code 3.77 Million/uL 4.20-5.80 = 68848444) ABSOLUTE EOSINOPHILS (test code 118 cells/uL 15-500 = 23337699) MPV (test code = 18016572) 12.8 fL 7.5-12.5 HEMATOCRIT (test code = 34.5 % 38.5-50.0 01542955) EOSINOPHILS (test code = 1.9 % 47246115) ABSOLUTE BASOPHILS (test code = 19 cells/uL 0-200 04035678) ABSOLUTE NEUTROPHILS (test code 4445 cells/uL 8787-3070 = 59131730) DTBNJB4721-56-10 11:48:94048X-GHUPVUUO GZSRFEW1031-49-80 11:48:0053.3AMYLASE 2019-03-25 11:48:51021SFZ3379-48-80 11:48:0075HEPATITIS C VIRAL RNA, QUALITATIVE FBY8039-19-32 11:48:00NOT DETECTEDBILIRUBIN, OUKTBH9455-65-20 11:48:000.6 CULTURE, URINE, OIKCFIB5008-80-16 11:48:00SEE NOTECOMPREHENSIVE METABOLIC PANEL 2019-03-25 11:48:00 Test Item Value Reference Range Comments GLOBULIN (test code = 63509613) 2.5 g/dL (calc) 1.9-3.7 ALKALINE PHOSPHATASE (test code = 106 U/L 40-115 02243670) UREA NITROGEN (BUN) (test code = 08411059) 11 mg/dL 7-25 BILIRUBIN, TOTAL (test code = 41149841) 2.0 mg/dL 0.2-1.2 AST (test code = 50558392) 61 U/L 10-35 POTASSIUM (test code = 93096010) 4.0 mmol/L 3.5-5.3 SODIUM (test code = 17048401) 139 mmol/L 135-146 CHLORIDE (test code = 46035491) 108 mmol/L 98-110 eGFR NON-AFR. RWANDAN (test code = 106 mL/min/1.73m2 > OR = 60 62201743) CREATININE (test code = 37799386) 0.66 mg/dL 0.70-1.33 GLUCOSE (test code = 43693788) 94 mg/dL 65-99 CALCIUM (test code = 22317607) 8.5 mg/dL 8.6-10.3 ALBUMIN/GLOBULIN RATIO (test code = 1.2 (calc) 1.0-2.5 95495723) CARBON DIOXIDE (test code = 72460102) 25 mmol/L 20-32 ALT (test code = 47570443) 54 U/L 9-46 PROTEIN, TOTAL (test code = 52997804) 5.5 g/dL 6.1-8.1 ALBUMIN (test code = 97710056) 3.0 g/dL 3.6-5.1 BUN/CREATININE RATIO (test code = 17 (calc) 6-22 36597516) eGFR (test code = 123 mL/min/1.73m2 > OR = 60 89640247) HEPATITIS C VIRAL RNA GENOTYPE, LIPA(R)2019-03-25 11:48:00Not DetectedWhite Blood Mfosf0010-86-94 00:33:00 Test Item Value Reference Range Comments Blood leukocytes automated count (number/volume) (test 4.4 3.6-11.1 code = 6690-2) Red Blood Yiaho4352-12-03 00:33:00 Test Item Value Reference Range Comments Blood erythrocytes automated count (number/volume) 3.79 4.27-5.49 (test code = 789-8) Saqczerdsu7299-15-08 00:33:00 Test Item Value Reference Range Comments Blood hemoglobin measurement (mass/volume) (test code 12.6 12.9-16.1 = 718-7) Sxbdhrohra5871-91-82 00:33:00 Test Item Value Reference Range Comments Automated blood hematocrit (volume fraction) (test 37.2 37.7-46.5 code = 4544-3) Mean Corpuscular Dmbkoz5869-30-91 00:33:00 Test Item Value Reference Range Comments Automated erythrocyte mean corpuscular volume (test 98.1 79.3-94.8 code = 787-2) Mean Corpuscular Uphxaawtjv3460-19-35 00:33:00 Test Item Value Reference Range Comments Automated erythrocyte mean corpuscular hemoglobin 33.2 26.8-33.2 (mass per erythrocyte) (test code = 785-6) Mean Corpuscular Hemoglobin Efknolw9504-12-50 00:33:00 Test Item Value Reference Range Comments Automated erythrocyte mean corpuscular hemoglobin 33.8 33.5-35.5 concentration measurement (mass/volume) (test code = 786-4) Red Cell Distribution Bvxac6966-81-09 00:33:00 Test Item Value Reference Range Comments Automated erythrocyte distribution width ratio (test 14.9 12.0-15.1 code = 788-0) Platelet Jogdk6722-17-03 00:33:00 Test Item Value Reference Range Comments Automated blood platelet count 45 165-353 P LATELETS CALLED BY Kathy Frye (count/volume) (test code = Yovi no at 0135 TO RAFAL 777-3) BALAJI/RN AND R/ V. Platelet count verified b y slide estimate. Mean Platelet Lwfttj5269-61-14 00:33:00 Test Item Value Reference Range Comments Automated blood platelet mean volume measurement (test 9.6 7.5-10.6 code = 80279-4) Neutrophils (%) (Auto)2019-03-11 00:33:00 Test Item Value [...] (test 0.0 0.0-0.1 code = 704-7) Sodium Uqhxo3521-18-60 00:33:00 Test Item Value Reference Range Comments Sodium blood (test code = 244059266) 143 137-144 Potassium Aecwq8019-23-18 00:33:00 Test Item Value Reference Range Comments Potassium blood (test code = 4.2 3.1-5.1 Sli ght hemolysis present. 444344945) Results may be a ffected. Chloride Mwyhe8002-81-11 00:33:00 Test Item Value Reference Range Comments Chloride blood (test code = 607529720) 111 101-110 Carbon Dioxide Ukeed9643-59-37 00:33:00 Test Item Value Reference Range Comments Carbon dioxide blood (test code = 83240834) 25 22-2 9 Glucose Smfra0449-88-41 00:33:00 Test Item Value Reference Range Comments Glucose blood (test code = 62955536) 109 70-105 Blood Urea Gawdowrx5484-49-43 00:33:00 Test Item Value Reference Range Comments BUN (test code = 895779490) 11.0 8.4-25.7 Obbvelxaol3065-72-28 00:33:00 Test Item Value Reference Range Comments Creatinine blood (test code = 430068345) 0.81 0.72-1. 25 Estimated Creatinine Clearance Mgoo9510-69-65 00:33:00 Test Item Value Reference Range Comments Estimation of creatinine 119.03 PT Ht: 175.26cm, PT Wt: clearance (test code = 108.2KG 712458655) Anion Hre8971-32-31 00:33:00 Test Item Value Reference Range Comments Anion gap measurement (test code = 32561193) 11 7-1 6 Calcium Nkene1788-48-45 00:33:00 Test Item Value Reference Range Comments Calcium (test code = 66162516) 8.5 8.4-10.2 Urine Fmoxj3144-28-45 23:30:00 Test Item Value Reference Range Comments Color of Urine by Auto (test code = 41116-5) RED Urine Bcmluqdbaz0395-32-07 23:30:00 Test Item Value Reference Range Comments Urine clarity by refractometry automated (test code = CLOUDY 74051-1) Urine Specific Nysquqa1726-59-69 23:30:00 Test Item Value Reference Range Comments Urine specific gravity measurement by automated test 1.011 1.005-1.030 strip (relative density) (test code = 02520-3) Urine uM3124-69-76 23:30:00 Test Item Value Reference Range Comments Urine pH measurement by automated test strip (test 6.0 5.0-8.0 code = 73287-3) Urine Leukocyte Weclcncr8344-57-26 23:30:00 Test Item Value Reference Range Comments Urine leukocyte esterase detection by automated test 2+ NEGATIVE strip (test code = 81336-9) Urine Dnlapjs6104-71-47 23:30:00 Test Item Value Reference Range Comments Urine nitrite detection by automated test strip POSITIVE NEGATIVE (test code = 36943-5) Urine Cswrpbd5298-39-94 23:30:00 Test Item Value Reference Range Comments Urine protein detection by automated test strip (test 2+ NEGATIVE code = 93941-8) Urine Glucose (UA)2019-03-10 23:30:00 Test Item Value Reference Range Comments Urine glucose detection by automated test strip NEGATIVE NEGATIVE (test code = 73869-1) Urine Eauewmb6078-03-23 23:30:00 Test Item Value Reference Range Comments Urine ketone detection by automated test strip NEGATIVE N EGATIVE (test code = 40054-7) Urine Mvhicpethfyi1531-16-50 23:30:00 Test Item Value Reference Range Comments Urine urobilinogen measurement by automated test strip 2+ NEGATIVE (mass/volume) (test code = 27695-8) Urine Yeowkfibt7812-96-55 23:30:00 Test Item Value Reference Range Comments Urine bilirubin detection by automated test strip NEGATIVE NEGATIVE (test code = 46610-5) Urine [id number] 23:30:00 Test Item Value Reference Range Comments Urine erythrocytes detection by automated method (test 3+ NEGATIVE code = 21441-2) Urine Ascorbic Acid [id number] 23:30:00 Test Item Value Reference Range Comments Urine ascorbic acid detection (test code = 1904-2) NEGATIVE Urine [id number] 23:30:00 Test Item Value Reference Range Comments RBC count ur auto (test code = 798-9) <20 0-2 Urine [id number] 23:30:00 Test Item Value Reference Range Comments Automated leukocytes count in urine sediment <100 0-5 (number/area) (test code = 68578-7) Urine Dqufn0944-40-91 23:30:00 Test Item Value Reference Range Comments Urine mucus detection by automated method (test MODERATE code = 20911-0) White Blood Eqqpo0731-91-95 14:21:00 Test Item Value Reference Range Comments Blood leukocytes automated count (number/volume) (test 5.3 3.6-11.1 code = 6690-2) Red Blood Wngyh2480-05-26 14:21:00 Test Item Value Reference Range Comments Blood erythrocytes automated count (number/volume) 3.82 4.27-5.49 (test code = 789-8) Rowcslxhnw3835-98-03 14:21:00 Test Item Value Reference Range Comments Blood hemoglobin measurement (mass/volume) (test code 13.0 12.9-16.1 = 718-7) Gxawjplcwt1567-46-48 14:21:00 Test Item Value Reference Range Comments Automated blood hematocrit (volume fraction) (test 36.5 37.7-46.5 code = 4544-3) Mean Corpuscular Dpdkvk0949-27-95 14:21:00 Test Item Value Reference Range Comments Automated erythrocyte mean corpuscular volume (test 95.7 79.3-94.8 code = 787-2) Mean Corpuscular Rfokukqavf1581-36-88 14:21:00 Test Item Value Reference Range Comments Automated erythrocyte mean corpuscular hemoglobin 34.0 26.8-33.2 (mass per erythrocyte) (test code = 785-6) Mean Corpuscular Hemoglobin Ecjbvpz2791-07-75 14:21:00 Test Item Value Reference Range Comments Automated erythrocyte mean corpuscular hemoglobin 35.5 33.5-35.5 concentration measurement (mass/volume) (test code = 786-4) Red Cell Distribution [id number] 14:21:00 Test Item Value Reference Range Comments Automated erythrocyte distribution width ratio (test 14.8 12.0-15.1 code = 788-0) Platelet Rsvzw5949-73-09 14:21:00 Test Item Value Reference Range Comments Automated blood platelet count 35 165-353 P latelet count verified by (count/volume) (test code = slid e estimate. PLATELET COUNT 777-3) CALLED BY Cal Carrington at 1458 on 02/26/19 TO JOAN ALCANTARA RN AND R/V . Mean Platelet Ioqfyy0281-63-95 14:21:00 Test Item Value Reference Range Comments Automated blood platelet mean volume measurement (test 8.9 7.5-10.6 code = 56294-6) Neutrophils (%) (Auto)2019-02-26 14:21:00 Test Item Value [...] (test 0.0 0.0-0.1 code = 704-7) Sodium Qigbl4038-51-60 14:21:00 Test Item Value Reference Range Comments Sodium blood (test code = 165711419) 137 137-144 Potassium Opvhb8918-30-10 14:21:00 Test Item Value Reference Range Comments Potassium blood (test code = 276564693) 4.1 3.1-5.1 Chloride Hcfvg1598-17-38 14:21:00 Test Item Value Reference Range Comments Chloride blood (test code = 375668327) 107 101-110 Carbon Dioxide Qlrcx7902-21-92 14:21:00 Test Item Value Reference Range Comments Carbon dioxide blood (test code = 59466605) 24 22-2 9 Glucose Ikwfq9451-47-97 14:21:00 Test Item Value Reference Range Comments Glucose blood (test code = 41774759) 98 70-105 Blood Urea Htzdhksc3030-00-84 14:21:00 Test Item Value Reference Range Comments BUN (test code = 593218969) 10.0 8.4-25.7 Qljfjhyooj8256-09-52 14:21:00 Test Item Value Reference Range Comments Creatinine blood (test code = 141065060) 0.67 0.72-1. 25 Estimated Creatinine Clearance Hxsd3848-48-62 14:21:00 Test Item Value Reference Range Comments Estimation of creatinine 143.50 PT Ht: 175.26cm, PT Wt: clearance (test code = 107.6KG 933068180) Anion Zex7542-15-15 14:21:00 Test Item Value Reference Range Comments Anion gap measurement (test code = 15604837) 10 7-1 6 Calcium Salsa5218-34-57 14:21:00 Test Item Value Reference Range Comments Calcium (test code = 20920277) 8.6 8.4-10.2 Total Pdfstylvr7479-45-24 14:21:00 Test Item Value Reference Range Comments Total bilirubin (test code = DNT5415) 2.2 0.1-1.2 Total Pfovjbe8791-68-14 14:21:00 Test Item Value Reference Range Comments Total protein blood (test code = 2885-2) 5.5 6.0-8.3 Wpvxtlr0120-39-27 14:21:00 Test Item Value Reference Range Comments Albumin (test code = TTO1751) 2.9 3.2-5.2 Fxlxucmn3816-20-96 14:21:00 Test Item Value Reference Range Comments Plasma globulin measurement (mass/volume) (test code = 2.6 2.6-4.6 65564-4) Albumin/Globulin Rvvln4437-63-56 14:21:00 Test Item Value Reference Range Comments Albumin to globulin ratio (test code = 110697) 1.1 1 .1-2.5 Aspartate Amino Transf (AST/SGOT)2019-02-26 14:21:00 Test Item Value Reference Range Comments AST (SGOT) ser/plas (test code = 05788580) 36 5-34 Alkaline Ajysgtlwhpb2831-78-16 14:21:00 Test Item Value Reference Range Comments Alkaline phosphatase (test code = 29849848) 91 40-1 50 Alanine Aminotransferase (ALT/SGPT)2019-02-26 14:21:00 Test Item Value Reference Range Comments ALT (SGPT) ser/plas (test code = 1742-6) 29 0-55 UJMEFQJDF3484-35-07 14:21:[address] [id number] Patient: RADHA VÁSQUEZ : 1960 Sex: M Address: [address] [place] [address] [place] [address] Unit #: [id number] [facility] SEQ #: [id number] Location: ED Room #: Ordering: ROBYN CUNHA [...] Signed by: LIZBETH PICKARD II, MD 02/26/19 2473 cc: ROBYN JEFF II,LIZBETH Fontenot MDOGXXBBDMPSNX0680-26-27 13:29:[address] [address] Patient: RADHA VÁSQUEZ : 1960 Sex: M Address: [place] [address] Unit #: [id number] REQ SEQ #: [id number] Location: ED Room #: Ordering: ROBYN CUNHA [...] Signed by: LIZBETH PICKARD II, MD 02/26/19 5578 cc: ROBYN JEFF II,LIZBETH Fontenot MDUrine Color 2019-02-26 11:50:00 Test Item Value Reference Range Comments Color of Urine by Auto (test code = 54220-8) RED Urine Fplelylwci7898-71-03 11:50:00 Test Item Value Reference Range Comments Urine clarity by refractometry automated (test code = HAZY 76922-8) Urine Specific Mvsufay6181-03-38 11:50:00 Test Item Value Reference Range Comments Specific gravity of Urine by Refractometry automated 1.013 1.005-1.030 (test code = 10300-9) Urine sM2501-37-33 11:50:00 Test Item Value Reference Range Comments Urine pH measurement by automated test strip (test 7.0 5.0-8.0 code = 45975-2) Urine Leukocyte Fyfjkhiz5618-68-23 11:50:00 Test Item Value Reference Range Comments Urine leukocyte esterase detection by automated POSITIVE NEGATIVE test strip (test code = 17575-7) Urine Zxybuez7233-02-02 11:50:00 Test Item Value Reference Range Comments Urine nitrite detection by automated test strip NEGATIVE NEGATIVE (test code = 68612-1) Urine Jpzydbk7148-21-10 11:50:00 Test Item Value Reference Range Comments Urine protein detection by automated test strip (test 2+ NEG-TRACE code = 35510-3) Urine Glucose (UA)2019-02-26 11:50:00 Test Item Value Reference Range Comments Urine glucose detection by automated test strip NEGATIVE NEGATIVE (test code = 20242-7) Urine Ecezmxk5722-00-56 11:50:00 Test Item Value Reference Range Comments Urine ketone detection by automated test strip NEGATIVE N EGATIVE (test code = 34113-5) Urine Paaqphicuhrg2742-33-25 11:50:00 Test Item Value Reference Range Comments Urine urobilinogen measurement by automated test strip 8.0 <2.0 (mass/volume) (test code = 96864-2) Urine Qvljqjmfw1108-69-49 11:50:00 Test Item Value Reference Range Comments Urine bilirubin detection by automated test strip NEGATIVE NEGATIVE (test code = 93014-4) Urine Pkbdn8736-41-41 11:50:00 Test Item Value Reference Range Comments Urine erythrocytes detection by automated method (test 3+ NEGATIVE code = 88635-5) Urine Culture Swznppown0997-59-23 11:50:00 Test Item Value Reference Range Comments UA + culture (test code = 13716-9) YES Urine JXZ4268-09-82 11:50:00 Test Item Value Reference Range Comments RBC count ur auto (test code = 798-9) <20 0-2 Urine WYX7463-03-27 11:50:00 Test Item Value Reference Range Comments Automated leukocytes count in urine sediment 11-20 0-5 (number/area) (test code = 43426-9) Urine Ojbgbjdr2284-14-07 11:50:00 Test Item Value Reference Range Comments Urine bacteria detection by automated method (test 1+ <1 code = 34545-4) Urine Mjwcx8350-14-50 11:50:00 Test Item Value Reference Range Comments Urine mucus detection by automated method (test code = MARY 71779-2) CAT ZPBM7694-35-07 03:25:[address] [address] Patient: RADHA VÁSQUEZ : 1960 Sex: M Address: [address] [place] [address] [place] [address] Unit #: [id number] [facility] SEQ #: [id number] Location: ED Room #: Ordering: KEZIA ORO [...] 02/24/19 0321 cc: ARNOLD ARRIAGA MD, STEPHANIE DOWorte Blood Count 2019-02-24 01:53:00 Test Item Value Reference Range Comments Blood leukocytes automated count (number/volume) (test 6.7 3.6-11.1 code = 6690-2) Red Blood Gxyqv3594-95-26 01:53:00 Test Item Value Reference Range Comments Blood erythrocytes automated count (number/volume) 3.87 4.27-5.49 (test code = 789-8) Pryzgzftyq9026-72-96 01:53:00 Test Item Value Reference Range Comments Blood hemoglobin measurement (mass/volume) (test code 13.0 12.9-16.1 = 718-7) Frupwtydlk5264-29-25 01:53:00 Test Item Value Reference Range Comments Automated blood hematocrit (volume fraction) (test 38.0 37.7-46.5 code = 4544-3) Mean Corpuscular Gsopgx1961-61-13 01:53:00 Test Item Value Reference Range Comments Automated erythrocyte mean corpuscular volume (test 98.2 79.3-94.8 code = 787-2) Mean Corpuscular Wmnxieghem0132-58-65 01:53:00 Test Item Value Reference Range Comments Automated erythrocyte mean corpuscular hemoglobin 33.5 26.8-33.2 (mass per erythrocyte) (test code = 785-6) Mean Corpuscular Hemoglobin Vmfjwxz7107-26-82 01:53:00 Test Item Value Reference Range Comments Automated erythrocyte mean corpuscular hemoglobin 34.1 33.5-35.5 concentration measurement (mass/volume) (test code = 786-4) Red Cell Distribution Ezgnj2837-55-79 01:53:00 Test Item Value Reference Range Comments Automated erythrocyte distribution width ratio (test 14.7 12.0-15.1 code = 788-0) Platelet Cnxeh4397-69-63 01:53:00 Test Item Value Reference Range Comments Automated blood platelet count 32 165-353 C ALLED BY Samantha Robin at (count/volume) (test code = 0246 TO JUAN F ZAPATA RN AND 777-3) R/V. Platelet co unt verified by slide estimate. Mean Platelet Vpiexs7055-91-83 01:53:00 Test Item Value Reference Range Comments Automated blood platelet mean volume measurement (test 8.9 7.5-10.6 code = 60293-6) Neutrophils (%) (Auto)2019-02-24 01:53:00 Test Item Value [...] (test 0.0 0.0-0.1 code = 704-7) Sodium Cnctk3258-78-85 01:53:00 Test Item Value Reference Range Comments Sodium blood (test code = 690482964) 141 137-144 Potassium Ducrv6790-83-57 01:53:00 Test Item Value Reference Range Comments Potassium blood (test code = 406752978) 3.5 3.1-5.1 Chloride Czbnc4204-51-05 01:53:00 Test Item Value Reference Range Comments Chloride blood (test code = 473063664) 111 101-110 Carbon Dioxide Bwwrf4792-71-26 01:53:00 Test Item Value Reference Range Comments Carbon dioxide blood (test code = 11793858) 22 22-2 9 Glucose Isimd5604-42-27 01:53:00 Test Item Value Reference Range Comments Glucose blood (test code = 82813255) 144 70-105 Blood Urea Zcyyqsih7575-76-67 01:53:00 Test Item Value Reference Range Comments BUN (test code = 871014710) 10.0 8.4-25.7 Nctfovlsjb3250-47-78 01:53:00 Test Item Value Reference Range Comments Creatinine blood (test code = 204284496) 0.75 0.72-1. 25 Estimated Creatinine Clearance Boor0035-72-86 01:53:00 Test Item Value Reference Range Comments Estimation of creatinine 127.89 PT Ht: 175.26cm, PT Wt: clearance (test code = 107.1KG 053092129) Anion Wkl0532-54-17 01:53:00 Test Item Value Reference Range Comments Anion gap measurement (test code = 83128819) 12 7-1 6 Calcium Taxtz3788-17-03 01:53:00 Test Item Value Reference Range Comments Calcium (test code = 21166137) 8.7 8.4-10.2 Total Gykyfbecg1300-22-30 01:53:00 Test Item Value Reference Range Comments Total bilirubin (test code = SIS7305) 1.3 0.1-1.2 Total Uenpdwr9235-69-37 01:53:00 Test Item Value Reference Range Comments Total protein blood (test code = 2885-2) 5.5 6.0-8.3 Uujhqki9477-17-13 01:53:00 Test Item Value Reference Range Comments Albumin (test code = PIZ8366) 2.9 3.2-5.2 Bgnvufvy8079-77-10 01:53:00 Test Item Value Reference Range Comments Plasma globulin measurement (mass/volume) (test code = 2.6 2.6-4.6 03964-5) Albumin/Globulin Vbfjm6564-86-87 01:53:00 Test Item Value Reference Range Comments Albumin to globulin ratio (test code = 735820) 1.1 1 .1-2.5 Aspartate Amino Transf (AST/SGOT)2019-02-24 01:53:00 Test Item Value Reference Range Comments AST (SGOT) ser/plas (test code = 99717140) 36 5-34 Alkaline Zbwwskjvaup2186-75-49 01:53:00 Test Item Value Reference Range Comments Alkaline phosphatase (test code = 31503679) 93 40-1 50 Alanine Aminotransferase (ALT/SGPT)2019-02-24 01:53:00 Test Item Value Reference Range Comments ALT (SGPT) ser/plas (test code = 1742-6) 32 0-55 Fnpwut0226-27-53 01:53:00 Test Item Value Reference Range Comments Lipase ser/plas (test code = 3040-3) 142 7-78 Urine Ddudi5189-42-68 01:10:00 Test Item Value Reference Range Comments Color of Urine by Auto (test code = 47811-7) DARK RED Urine Avvqgfnyvw5573-52-83 01:10:00 Test Item Value Reference Range Comments Urine clarity by refractometry automated (test code = CLOUDY 13170-7) Urine Specific Hopuhfe0651-64-00 01:10:00 Test Item Value Reference Range Comments Specific gravity of Urine by Refractometry automated 1.025 1.005-1.030 (test code = 70803-3) Urine uL4878-02-21 01:10:00 Test Item Value Reference Range Comments Urine pH measurement by automated test strip (test 6.0 5.0-8.0 code = 30683-0) Urine Leukocyte Niagstue3924-40-08 01:10:00 Test Item Value Reference Range Comments Urine leukocyte esterase detection by automated POSITIVE NEGATIVE test strip (test code = 76199-4) Urine Cnunhnd8412-53-48 01:10:00 Test Item Value Reference Range Comments Urine nitrite detection by automated test strip NEGATIVE NEGATIVE (test code = 79099-0) Urine Kxaftbg7164-23-35 01:10:00 Test Item Value Reference Range Comments Urine protein detection by automated test strip (test 2+ NEG-TRACE code = 82449-3) Urine Glucose (UA)2019-02-24 01:10:00 Test Item Value Reference Range Comments Urine glucose detection by automated test strip (test TRACE NEGATIVE code = 04424-6) Urine Zvhzktv9898-93-44 01:10:00 Test Item Value Reference Range Comments Urine ketone detection by automated test strip (test TRACE NEGATIVE code = 33745-1) Urine Kqakkvhioeax1888-63-80 01:10:00 Test Item Value Reference Range Comments Urine urobilinogen measurement by automated test strip >2.0 <2.0 (mass/volume) (test code = 20467-2) Urine Bpsmfruvw3279-03-20 01:10:00 Test Item Value Reference Range Comments Urine bilirubin detection by automated test strip NEGATIVE NEGATIVE (test code = 90082-4) Urine Dsmwc8938-00-99 01:10:00 Test Item Value Reference Range Comments Urine erythrocytes detection by automated method (test 3+ NEGATIVE code = 49174-0) Urine Culture Losexantf3062-82-17 01:10:00 Test Item Value Reference Range Comments UA + culture (test code = 59225-2) YES Urine VTD4222-25-40 01:10:00 Test Item Value Reference Range Comments RBC count ur auto (test code = 798-9) <20 0-2 Urine LYG0481-82-51 01:10:00 Test Item Value Reference Range Comments Automated leukocytes count in urine sediment <100 0-5 (number/area) (test code = 22889-7) Urine Djqfmkuz4897-66-07 01:10:00 Test Item Value Reference Range Comments Urine bacteria detection by automated method (test 2+ <1 code = 06089-2) Urine Wfzhe8548-28-45 01:10:00 Test Item Value Reference Range Comments Urine mucus detection by automated method (test code = LARGE 04988-1) Urine Yeast (Budding)2019-02-24 01:10:00 Test Item Value Reference Range Comments Yeast.budding detection in urine sediment (test code = 2+ NONE SEEN 64540-5) CAT QZYK0176-58-78 22:44:[address] [address] Patient: RADHA VÁSQUEZ : 1960 Sex: M Address: [address] [place], [place] [address] [address] Unit #: [id number] REQ SEQ #: [id number] Location: [facility] Room #: Ordering: MATEO MCCARTHY [...] MD Signed by: GI RIVERA MD 02/14/19 7819 cc: MATEO MCCARTHY PA-C, HEATHER M MDWhite Blood Vsrzt6549-74-80 20:07:00 Test Item Value Reference Range Comments Blood leukocytes automated count (number/volume) (test 6.4 3.6-11.1 code = 6690-2) Red Blood Cmagn8439-04-57 20:07:00 Test Item Value Reference Range Comments Blood erythrocytes automated count (number/volume) 4.25 4.27-5.49 (test code = 789-8) Gegvarodhj3331-20-31 20:07:00 Test Item Value Reference Range Comments Blood hemoglobin measurement (mass/volume) (test code 14.0 12.9-16.1 = 718-7) Bxaxhrmqtg6525-07-45 20:07:00 Test Item Value Reference Range Comments Automated blood hematocrit (volume fraction) (test 42.1 37.7-46.5 code = 4544-3) Mean Corpuscular Fcdanq1784-19-27 20:07:00 Test Item Value Reference Range Comments Automated erythrocyte mean corpuscular volume (test 99.2 79.3-94.8 code = 787-2) Mean Corpuscular Rebemvfhtx4896-23-64 20:07:00 Test Item Value Reference Range Comments Automated erythrocyte mean corpuscular hemoglobin 32.9 26.8-33.2 (mass per erythrocyte) (test code = 785-6) Mean Corpuscular Hemoglobin Bhrtmpt0953-70-45 20:07:00 Test Item Value Reference Range Comments Automated erythrocyte mean corpuscular hemoglobin 33.2 33.5-35.5 concentration measurement (mass/volume) (test code = 786-4) Red Cell Distribution Zydyf6877-47-34 20:07:00 Test Item Value Reference Range Comments Automated erythrocyte distribution width ratio (test 15.2 12.0-15.1 code = 788-0) Platelet Peszf2695-50-97 20:07:00 Test Item Value Reference Range Comments Automated blood platelet count 47 165-353 C ALLED BY Mare Graham (count/volume) (test code = at 2 045 TO NICANOR GROVER RN AND 777-3) R/V. Platelet co unt verified by slide estimate. Mean Platelet Bvhzvk2309-18-65 20:07:00 Test Item Value Reference Range Comments Automated blood platelet mean volume measurement (test 9.6 7.5-10.6 code = 63194-6) Neutrophils (%) (Auto)2019-02-14 20:07:00 Test Item Value [...] (test 0.0 0.0-0.1 code = 704-7) Sodium Wazup1344-90-29 20:07:00 Test Item Value Reference Range Comments Sodium blood (test code = 768364006) 143 137-144 Potassium Vulkx4157-37-80 20:07:00 Test Item Value Reference Range Comments Potassium blood (test code = 910524708) 4.2 3.1-5.1 Chloride Aweez8063-35-77 20:07:00 Test Item Value Reference Range Comments Chloride blood (test code = 480749992) 111 101-110 Carbon Dioxide Dycnf5650-90-78 20:07:00 Test Item Value Reference Range Comments Carbon dioxide blood (test code = 11282197) 24 22-2 9 Glucose Angdn6009-63-09 20:07:00 Test Item Value Reference Range Comments Glucose blood (test code = 49078453) 84 70-105 Blood Urea Xjlylddd4509-95-70 20:07:00 Test Item Value Reference Range Comments BUN (test code = 955133158) 14.0 8.4-25.7 Wfpxefuwxr6787-82-93 20:07:00 Test Item Value Reference Range Comments Creatinine blood (test code = 220315278) 0.78 0.72-1. 25 Estimated Creatinine Clearance Ojjr8018-27-23 20:07:00 Test Item Value Reference Range Comments Estimation of creatinine 124.07 PT Ht: 175.26cm, PT Wt: 109KG clearance (test code = 777116889) Anion Fak1660-91-74 20:07:00 Test Item Value Reference Range Comments Anion gap measurement (test code = 96662032) 12 7-1 6 Calcium Qmybx7223-56-22 20:07:00 Test Item Value Reference Range Comments Calcium (test code = 53840395) 8.9 8.4-10.2 Urine Slmvn8216-83-51 20:00:00 Test Item Value Reference Range Comments Urine color determination (test code = 5778-6) DARK RED Urine Chjbgfkgtc6401-82-25 20:00:00 Test Item Value Reference Range Comments Urine clarity determination (test code = 64702-5) CLOUDY Urine Specific Xakuqbm4746-20-08 20:00:00 Test Item Value Reference Range Comments Specific gravity of Urine by Refractometry automated 1.005 1.005-1.030 (test code = 61087-6) Urine iS3807-70-16 20:00:00 Test Item Value Reference Range Comments Urine pH measurement by automated test strip (test 7.5 5.0-8.0 code = 42856-8) Urine Leukocyte Pgenihpf6042-26-63 20:00:00 Test Item Value Reference Range Comments Urine leukocyte esterase detection by automated POSITIVE NEGATIVE test strip (test code = 21119-2) Urine Lcemfdb5954-29-25 20:00:00 Test Item Value Reference Range Comments Urine nitrite detection by automated test strip NEGATIVE NEGATIVE (test code = 08404-9) Urine Rsiiqgg2611-53-77 20:00:00 Test Item Value Reference Range Comments Urine protein detection by automated test strip (test 2+ NEG-TRACE code = 14284-8) Urine Glucose (UA)2019-02-14 20:00:00 Test Item Value Reference Range Comments Urine glucose detection by automated test strip NEGATIVE NEGATIVE (test code = 93779-2) Urine Ufcuhuc1755-03-50 20:00:00 Test Item Value Reference Range Comments Urine ketone detection by automated test strip NEGATIVE N EGATIVE (test code = 11325-2) Urine Zkivdpcxwraz5593-90-26 20:00:00 Test Item Value Reference Range Comments Urine urobilinogen measurement by automated test strip 4.0 <2.0 (mass/volume) (test code = 64171-8) Urine Bbxmuypvq9346-28-27 20:00:00 Test Item Value Reference Range Comments Urine bilirubin detection by automated test strip NEGATIVE NEGATIVE (test code = 52133-8) Urine Tremv7458-72-36 20:00:00 Test Item Value Reference Range Comments Urine erythrocytes detection by automated method (test 3+ NEGATIVE code = 26501-5) Urine Culture Qvjfltbku5084-25-27 20:00:00 Test Item Value Reference Range Comments UA + culture (test code = 51432-3) YES Urine DKQ9335-40-51 20:00:00 Test Item Value Reference Range Comments RBC count ur auto (test code = 798-9) <20 0-2 Urine VBP3234-04-39 20:00:00 Test Item Value Reference Range Comments Automated leukocytes count in urine sediment 11-20 0-5 (number/area) (test code = 70758-3) CAT VZIY8023-26-65 10:40:[address] [address] Patient: RADHA VÁSQUEZ : 1960 Sex: M Address: [facility] [place] [address] [facility] #: [id number] Unit #: [id number] [facility] SEQ #: [id number] Location: ED Room #: Ordering: ROBINSON MACIEL [...] by: Silver Caraballo MD Signed by: NEO CARABALLO MD 01/30/19 1035 cc: ROBINSON MACIEL ANTHONY G MDUrine Nfapc3602-86-71 10:15:00 Test Item Value Reference Range Comments Urine color determination (test code = 5778-6) ORANGE Urine Krtcvuxeml8134-20-60 10:15:00 Test Item Value Reference Range Comments Urine clarity determination (test code = 73200-6) HAZY Urine Specific Ktaxedk7746-76-22 10:15:00 Test Item Value Reference Range Comments Specific gravity of Urine by Refractometry automated 1.022 1.005-1.030 (test code = 86472-6) Urine yS2958-65-53 10:15:00 Test Item Value Reference Range Comments Urine pH measurement by automated test strip (test 5.5 5.0-8.0 code = 93168-9) Urine Leukocyte Yysnkhew0091-98-57 10:15:00 Test Item Value Reference Range Comments Urine leukocyte esterase detection by automated POSITIVE NEGATIVE test strip (test code = 62935-5) Urine Vsbbrov4987-89-61 10:15:00 Test Item Value Reference Range Comments Urine nitrite detection by automated test strip NEGATIVE NEGATIVE (test code = 00799-3) Urine Sdcqamc5788-91-26 10:15:00 Test Item Value Reference Range Comments Urine protein detection by automated test strip (test 1+ NEG-TRACE code = 48003-5) Urine Glucose (UA)2019-01-30 10:15:00 Test Item Value Reference Range Comments Urine glucose detection by automated test strip NEGATIVE NEGATIVE (test code = 81281-1) Urine Kfcuada1660-90-19 10:15:00 Test Item Value Reference Range Comments Urine ketone detection by automated test strip (test TRACE NEGATIVE code = 89237-0) Urine Bhltrasbgimq0375-50-52 10:15:00 Test Item Value Reference Range Comments Urine urobilinogen measurement by automated test strip 4.0 <2.0 (mass/volume) (test code = 80283-2) Urine Ohnwypoet0169-93-07 10:15:00 Test Item Value Reference Range Comments Urine bilirubin detection by automated test strip 1+ NEGATIVE (test code = 24829-5) Urine Mbfsw1724-56-67 10:15:00 Test Item Value Reference Range Comments Urine erythrocytes detection by automated method (test 2+ NEGATIVE code = 48873-2) Urine Culture Afpkdczgv2744-58-82 10:15:00 Test Item Value Reference Range Comments UA + culture (test code = 29440-6) YES Urine Squamous Epithelial Vwwgf8616-93-52 10:15:00 Test Item Value Reference Range Comments Urine squamous epithelial cells detection by automated 0-5 0-5 method (test code = 52433-8) Urine JRZ1607-67-99 10:15:00 Test Item Value Reference Range Comments RBC count ur auto (test code = 798-9) <20 0-2 Urine KYH7322-68-25 10:15:00 Test Item Value Reference Range Comments Automated leukocytes count in urine sediment 21-50 0-5 (number/area) (test code = 47953-2) Urine Qpmbglwe1851-94-77 10:15:00 Test Item Value Reference Range Comments Urine bacteria detection by automated method (test 1+ <1 code = 22201-4) Urine Eexrt8673-67-13 10:15:00 Test Item Value Reference Range Comments Urine mucus detection by automated method (test code = LARGE 86724-0) White Blood Bryaq1901-07-56 09:58:00 Test Item Value Reference Range Comments Blood leukocytes automated count (number/volume) (test 4.2 3.6-11.1 code = 6690-2) Red Blood Ludfc5994-60-07 09:58:00 Test Item Value Reference Range Comments Blood erythrocytes automated count (number/volume) 3.79 4.27-5.49 (test code = 789-8) Nhpkvshcdo2352-65-79 09:58:00 Test Item Value Reference Range Comments Blood hemoglobin measurement (mass/volume) (test code 12.9 12.9-16.1 = 718-7) Oqxqhxwyzx3092-54-60 09:58:00 Test Item Value Reference Range Comments Automated blood hematocrit (volume fraction) (test 36.7 37.7-46.5 code = 4544-3) Mean Corpuscular Uyyiqx9473-89-66 09:58:00 Test Item Value Reference Range Comments Automated erythrocyte mean corpuscular volume (test 96.8 79.3-94.8 code = 787-2) Mean Corpuscular Nmopmmszve1798-42-33 09:58:00 Test Item Value Reference Range Comments Automated erythrocyte mean corpuscular hemoglobin 34.2 26.8-33.2 (mass per erythrocyte) (test code = 785-6) Mean Corpuscular Hemoglobin Slfargd0036-97-20 09:58:00 Test Item Value Reference Range Comments Automated erythrocyte mean corpuscular hemoglobin 35.3 33.5-35.5 concentration measurement (mass/volume) (test code = 786-4) Red Cell Distribution Ljhuf8743-47-52 09:58:00 Test Item Value Reference Range Comments Automated erythrocyte distribution width ratio (test 14.8 12.0-15.1 code = 788-0) Platelet Dzmwz4953-93-92 09:58:00 Test Item Value Reference Range Comments Automated blood platelet count (count/volume) (test 51 165-353 code = 777-3) Mean Platelet Nynusv0349-02-36 09:58:00 Test Item Value Reference Range Comments Automated blood platelet mean volume measurement (test 8.6 7.5-10.6 code = 74553-5) Neutrophils (%) (Auto)2019-01-30 09:58:00 Test Item Value [...] (test 0.0 0.0-0.1 code = 704-7) Sodium Xeijn4757-97-55 09:58:00 Test Item Value Reference Range Comments Sodium blood (test code = 567335382) 142 137-144 Potassium Ltupg1419-15-72 09:58:00 Test Item Value Reference Range Comments Potassium blood (test code = 309904503) 4.0 3.1-5.1 Chloride Fziwa6450-23-63 09:58:00 Test Item Value Reference Range Comments Chloride blood (test code = 823231652) 112 101-110 Carbon Dioxide Uwgpr6409-56-18 09:58:00 Test Item Value Reference Range Comments Carbon dioxide blood (test code = 32667190) 21 22-2 9 Glucose Honvm5589-63-56 09:58:00 Test Item Value Reference Range Comments Glucose blood (test code = 47293067) 138 70-105 Blood Urea Pwedrhll0012-94-11 09:58:00 Test Item Value Reference Range Comments BUN (test code = 505839808) 15.0 8.4-25.7 Pftafpugkz2707-27-33 09:58:00 Test Item Value Reference Range Comments Creatinine blood (test code = 133429828) 0.95 0.72-1. 25 Estimated Creatinine Clearance Xujy2011-82-91 09:58:00 Test Item Value Reference Range Comments Estimation of creatinine 101.58 PT Ht: 175.26cm, PT Wt: clearance (test code = 108.4KG 169680460) Anion Feb7208-63-01 09:58:00 Test Item Value Reference Range Comments Anion gap measurement (test code = 70340415) 13 7-1 6 Calcium Zgize2845-57-56 09:58:00 Test Item Value Reference Range Comments Calcium (test code = 60095033) 8.8 8.4-10.2 Total Wohldlebi1546-19-95 09:58:00 Test Item Value Reference Range Comments Total bilirubin (test code = XCN4265) 1.3 0.1-1.2 Total Ezbkipg1409-73-13 09:58:00 Test Item Value Reference Range Comments Total protein blood (test code = 2885-2) 5.7 6.0-8.3 Bokihle9220-24-41 09:58:00 Test Item Value Reference Range Comments Albumin (test code = XJW9819) 3.1 3.2-5.2 Vftkwinn3961-70-14 09:58:00 Test Item Value Reference Range Comments Plasma globulin measurement (mass/volume) (test code = 2.6 2.6-4.6 16023-2) Albumin/Globulin Gnrlm7024-20-58 09:58:00 Test Item Value Reference Range Comments Albumin to globulin ratio (test code = 967188) 1.2 1 .1-2.5 Aspartate Amino Transf (AST/SGOT)2019-01-30 09:58:00 Test Item Value Reference Range Comments AST (SGOT) ser/plas (test code = 69670591) 34 5-34 Alkaline Fbisyqzsbxp5846-40-35 09:58:00 Test Item Value Reference Range Comments Alkaline phosphatase (test code = 66737002) 109 40-1 50 Alanine Aminotransferase (ALT/SGPT)2019-01-30 09:58:00 Test Item Value Reference Range Comments ALT (SGPT) ser/plas (test code = 1742-6) 31 0-55 White Blood Boruy3728-02-09 01:11:00 Test Item Value Reference Range Comments Blood leukocytes automated count (number/volume) (test 4.8 3.6-11.1 code = 6690-2) Red Blood Yzwbm2750-01-58 01:11:00 Test Item Value Reference Range Comments Blood erythrocytes automated count (number/volume) 3.82 4.27-5.49 (test code = 789-8) Gpvuhdsslw4460-26-97 01:11:00 Test Item Value Reference Range Comments Blood hemoglobin measurement (mass/volume) (test code 12.9 12.9-16.1 = 718-7) Tvzfrfnhrg6389-59-26 01:11:00 Test Item Value Reference Range Comments Automated blood hematocrit (volume fraction) (test 37.0 37.7-46.5 code = 4544-3) Mean Corpuscular Ytpxma0208-44-99 01:11:00 Test Item Value Reference Range Comments Automated erythrocyte mean corpuscular volume (test 97.0 79.3-94.8 code = 787-2) Mean Corpuscular Ckrsazdbgw1160-36-40 01:11:00 Test Item Value Reference Range Comments Automated erythrocyte mean corpuscular hemoglobin 33.7 26.8-33.2 (mass per erythrocyte) (test code = 785-6) Mean Corpuscular Hemoglobin Dbfprvz4456-07-61 01:11:00 Test Item Value Reference Range Comments Automated erythrocyte mean corpuscular hemoglobin 34.7 33.5-35.5 concentration measurement (mass/volume) (test code = 786-4) Red Cell Distribution Rkyrm1235-98-82 01:11:00 Test Item Value Reference Range Comments Automated erythrocyte distribution width ratio (test 15.0 12.0-15.1 code = 788-0) Platelet Rmgmk8758-38-43 01:11:00 Test Item Value Reference Range Comments Automated blood platelet count 50 165-353 [ ] CALLED BY Edda Nichols at (count/volume) (test code = 0126 TO [] AND R/V. 777-3) Mean Platelet Honkol1455-35-32 01:11:00 Test Item Value Reference Range Comments Automated blood platelet mean volume measurement (test 9.4 7.5-10.6 code = 26669-9) Neutrophils (%) (Auto)2019-01-30 01:11:00 Test Item Value [...] (test 0.0 0.0-0.1 code = 704-7) Sodium Akoii1473-92-85 01:11:00 Test Item Value Reference Range Comments Sodium blood (test code = 239826032) 144 137-144 Potassium Tkimf7022-04-83 01:11:00 Test Item Value Reference Range Comments Potassium blood (test code = 780039528) 3.8 3.1-5.1 Chloride Kypcs7227-97-19 01:11:00 Test Item Value Reference Range Comments Chloride blood (test code = 486103194) 112 101-110 Carbon Dioxide Zqrst4243-58-20 01:11:00 Test Item Value Reference Range Comments Carbon dioxide blood (test code = 82068871) 25 22-2 9 Glucose Qkonr0621-35-66 01:11:00 Test Item Value Reference Range Comments Glucose blood (test code = 84872423) 89 70-105 Blood Urea Rxxnqaov7705-91-21 01:11:00 Test Item Value Reference Range Comments BUN (test code = 687195530) 10.0 8.4-25.7 Qnrhxitobo5496-59-09 01:11:00 Test Item Value Reference Range Comments Creatinine blood (test code = 798914695) 0.78 0.72-1. 25 Estimated Creatinine Clearance Ychl8525-46-23 01:11:00 Test Item Value Reference Range Comments Estimation of creatinine 123.72 PT Ht: 175.26cm, PT Wt: clearance (test code = 108.4KG 237142922) Anion Bqz4800-40-67 01:11:00 Test Item Value Reference Range Comments Anion gap measurement (test code = 28635767) 11 7-1 6 Calcium Tvcdw0330-49-74 01:11:00 Test Item Value Reference Range Comments Calcium (test code = 01864641) 9.1 8.4-10.2 Urine Ebgjh9061-33-32 00:30:00 Test Item Value Reference Range Comments Urine color determination (test code = 5778-6) YELLOW Urine Hvevgerfcp9917-48-31 00:30:00 Test Item Value Reference Range Comments Urine clarity determination (test code = 22976-0) CLEAR Urine Specific Uedgexx6681-29-15 00:30:00 Test Item Value Reference Range Comments Specific gravity of Urine by Refractometry automated 1.009 1.005-1.030 (test code = 47278-6) Urine rT8879-35-16 00:30:00 Test Item Value Reference Range Comments Urine pH measurement by automated test strip (test 7.0 5.0-8.0 code = 46927-4) Urine Leukocyte Bwnpneyq8108-05-83 00:30:00 Test Item Value Reference Range Comments Urine leukocyte esterase detection by automated test TRACE NEGATIVE strip (test code = 16860-5) Urine Tyurhgs4879-75-62 00:30:00 Test Item Value Reference Range Comments Urine nitrite detection by automated test strip NEGATIVE NEGATIVE (test code = 08571-8) Urine Oethtoi3411-77-01 00:30:00 Test Item Value Reference Range Comments Urine protein detection by automated test strip NEGATIVE NEG-TRACE (test code = 37642-1) Urine Glucose (UA)2019-01-30 00:30:00 Test Item Value Reference Range Comments Urine glucose detection by automated test strip NEGATIVE NEGATIVE (test code = 49353-5) Urine Drqfdnq5314-95-20 00:30:00 Test Item Value Reference Range Comments Urine ketone detection by automated test strip NEGATIVE N EGATIVE (test code = 28611-7) Urine Fwlvbcrhbalg2835-16-45 00:30:00 Test Item Value Reference Range Comments Urine urobilinogen measurement by automated test strip 2.0 <2.0 (mass/volume) (test code = 01388-0) Urine Xqwxbujep0271-07-21 00:30:00 Test Item Value Reference Range Comments Urine bilirubin detection by automated test strip NEGATIVE NEGATIVE (test code = 54835-4) Urine Knvsd2689-86-59 00:30:00 Test Item Value Reference Range Comments Urine erythrocytes detection by automated method (test 2+ NEGATIVE code = 08241-8) Urine Culture Fksoqsmjm8614-91-84 00:30:00 Test Item Value Reference Range Comments UA + culture (test code = NO Urine Culture was not indicated. 44194-4) Urine OGR5264-19-81 00:30:00 Test Item Value Reference Range Comments RBC count ur auto (test code = 798-9) <20 0-2 Urine BRA2351-53-74 00:30:00 Test Item Value Reference Range Comments Automated leukocytes count in urine sediment 0-5 0-5 (number/area) (test code = 60659-7) Urine Gmmpm2563-69-17 00:30:00 Test Item Value Reference Range Comments Urine mucus detection by automated method (test code = MARY 75887-1) CAT CCSU7215-27-28 17:29:[address] [id number] Patient: RADHA VÁSQUEZ : 1960 Sex: M Address: [address] [place] [address] [place] [address] Unit #: [id number] [facility] SEQ #: [id number] Location: [facility] [place] Room #: Ordering: DEIRDRE GARCIA PA-C Diagnosis: [...] above. Final report electronically signed by: Thelma Manjarrez DO Signed by: ANTHONY MANJARREZ DO 01/25/19 [id number] cc: DEIRDRE GARCIA PA-C,ANTHONY Palencia DOWhite Blood Aimve2224-21-80 15:52:00 Test Item Value Reference Range Comments Blood leukocytes automated count (number/volume) (test 4.3 3.6-11.1 code = 6690-2) Red Blood Xfeir3858-84-03 15:52:00 Test Item Value Reference Range Comments Blood erythrocytes automated count (number/volume) 3.93 4.27-5.49 (test code = 789-8) Ndcsclwogc1193-42-61 15:52:00 Test Item Value Reference Range Comments Blood hemoglobin measurement (mass/volume) (test code 13.4 12.9-16.1 = 718-7) Bgfvtikxlu2616-14-05 15:52:00 Test Item Value Reference Range Comments Automated blood hematocrit (volume fraction) (test 38.2 37.7-46.5 code = 4544-3) Mean Corpuscular Ogjqlu9264-39-11 15:52:00 Test Item Value Reference Range Comments Automated erythrocyte mean corpuscular volume (test 97.2 79.3-94.8 code = 787-2) Mean Corpuscular Mcwuksthgf9318-19-81 15:52:00 Test Item Value Reference Range Comments Automated erythrocyte mean corpuscular hemoglobin 34.1 26.8-33.2 (mass per erythrocyte) (test code = 785-6) Mean Corpuscular Hemoglobin Madpopg0286-51-66 15:52:00 Test Item Value Reference Range Comments Automated erythrocyte mean corpuscular hemoglobin 35.1 33.5-35.5 concentration measurement (mass/volume) (test code = 786-4) Red Cell Distribution Xdbxs0613-26-00 15:52:00 Test Item Value Reference Range Comments Automated erythrocyte distribution width ratio (test 15.0 12.0-15.1 code = 788-0) Platelet Acmky1223-00-44 15:52:00 Test Item Value Reference Range Comments Automated blood platelet count (count/volume) (test 50 165-353 code = 777-3) Mean Platelet Xvxheu6776-76-76 15:52:00 Test Item Value Reference Range Comments Automated blood platelet mean volume measurement (test 9.9 7.5-10.6 code = 56617-9) Neutrophils (%) (Auto)2019-01-25 15:52:00 Test Item Value [...] (test 0.0 0.0-0.1 code = 704-7) Sodium Llolx8997-50-74 15:52:00 Test Item Value Reference Range Comments Sodium blood (test code = 774515802) 144 137-144 Potassium Psqgt9144-00-48 15:52:00 Test Item Value Reference Range Comments Potassium blood (test code = 788386425) 4.0 3.1-5.1 Chloride Tpzfv5011-05-21 15:52:00 Test Item Value Reference Range Comments Chloride blood (test code = 026018111) 114 101-110 Carbon Dioxide Yngkb8860-82-56 15:52:00 Test Item Value Reference Range Comments Carbon dioxide blood (test code = 64181801) 28 22-2 9 Glucose Qjqag1036-21-72 15:52:00 Test Item Value Reference Range Comments Glucose blood (test code = 33170377) 93 70-105 Blood Urea Tnmwkgve9031-06-75 15:52:00 Test Item Value Reference Range Comments BUN (test code = 366218347) 8.0 8.4-25.7 Rodofzevcx8360-86-67 15:52:00 Test Item Value Reference Range Comments Creatinine blood (test code = 308079953) 0.72 0.72-1. 25 Estimated Creatinine Clearance Svwa3428-37-04 15:52:00 Test Item Value Reference Range Comments Estimation of creatinine 134.41 PT Ht: 175.26cm, PT Wt: 109KG clearance (test code = Results m onitored by Pharmacy. [id number]) Anion Iyb7789-50-08 15:52:00 Test Item Value Reference Range Comments Anion gap measurement (test code = 61078218) 6 7-1 6 Calcium Axdcr2824-06-44 15:52:00 Test Item Value Reference Range Comments Calcium (test code = 87463703) 8.5 8.4-10.2 Total Lstdopgsm8694-39-80 15:52:00 Test Item Value Reference Range Comments Total bilirubin (test code = LSX1657) 1.5 0.1-1.2 Total Kmnvjij0866-93-09 15:52:00 Test Item Value Reference Range Comments Total protein blood (test code = 2885-2) 5.8 6.0-8.3 Hiqbykq9361-15-01 15:52:00 Test Item Value Reference Range Comments Albumin (test code = JZV6021) 3.1 3.2-5.2 Rnswqwaw0899-98-52 15:52:00 Test Item Value Reference Range Comments Plasma globulin measurement (mass/volume) (test code = 2.7 2.6-4.6 66944-6) Albumin/Globulin Qygly7404-34-89 15:52:00 Test Item Value Reference Range Comments Albumin to globulin ratio (test code = 567255) 1.1 1 .1-2.5 Aspartate Amino Transf (AST/SGOT)2019-01-25 15:52:00 Test Item Value Reference Range Comments AST (SGOT) ser/plas (test code = 31200168) 75 5-34 Alkaline Dltbprujoiu0936-96-87 15:52:00 Test Item Value Reference Range Comments Alkaline phosphatase (test code = 91845040) 128 40-1 50 Alanine Aminotransferase (ALT/SGPT)2019-01-25 15:52:00 Test Item Value Reference Range Comments ALT (SGPT) ser/plas (test code = 1742-6) 64 0-55 Urine Pkejw0375-74-72 15:39:00 Test Item Value Reference Range Comments Urine color determination (test code = 5778-6) YELLOW Urine Jthjgiplyu1016-34-59 15:39:00 Test Item Value Reference Range Comments Urine clarity determination (test code = 04214-0) CLEAR Urine Specific Tmsdplj0831-98-57 15:39:00 Test Item Value Reference Range Comments Specific gravity of Urine by Refractometry automated 1.011 1.005-1.030 (test code = 33776-7) Urine tU9058-32-32 15:39:00 Test Item Value Reference Range Comments Urine pH measurement by automated test strip (test 6.0 5.0-8.0 code = 23617-8) Urine Leukocyte Zxaainvm4352-02-01 15:39:00 Test Item Value Reference Range Comments Urine leukocyte esterase detection by automated NEGATIVE NEGATIVE test strip (test code = 14333-9) Urine Zudufce6841-99-06 15:39:00 Test Item Value Reference Range Comments Urine nitrite detection by automated test strip NEGATIVE NEGATIVE (test code = 58704-2) Urine Kppnewl3360-62-43 15:39:00 Test Item Value Reference Range Comments Urine protein detection by automated test strip NEGATIVE NEG-TRACE (test code = 10371-1) Urine Glucose (UA)2019-01-25 15:39:00 Test Item Value Reference Range Comments Urine glucose detection by automated test strip NEGATIVE NEGATIVE (test code = 32586-4) Urine Tknbzvr1465-73-72 15:39:00 Test Item Value Reference Range Comments Urine ketone detection by automated test strip NEGATIVE N EGATIVE (test code = 59858-6) Urine Ilmtstittycq4079-70-96 15:39:00 Test Item Value Reference Range Comments Urine urobilinogen measurement by automated test strip >2.0 <2.0 (mass/volume) (test code = 11693-3) Urine Fihryrxll1758-84-03 15:39:00 Test Item Value Reference Range Comments Urine bilirubin detection by automated test strip NEGATIVE NEGATIVE (test code = 26332-2) Urine Lpswh0171-67-26 15:39:00 Test Item Value Reference Range Comments Urine erythrocytes detection by automated method (test 3+ NEGATIVE code = 22619-5) Urine Culture Lbanfqirt9429-48-44 15:39:00 Test Item Value Reference Range Comments UA + culture (test code = NO Urine Culture was not indicated. 07491-1) Urine GOM5659-94-37 15:39:00 Test Item Value Reference Range Comments RBC count ur auto (test code = 798-9) <20 0-2 Urine TKW8134-48-18 15:39:00 Test Item Value Reference Range Comments Automated leukocytes count in urine sediment 0-5 0-5 (number/area) (test code = 10582-9) Urine Nnynf4508-51-24 15:39:00 Test Item Value Reference Range Comments Urine mucus detection by automated method (test code = MARY 94582-8) CAT ZYZS4802-30-24 05:06:[address] [address] Patient: RADHA VÁSQUEZ : 1960 Sex: M Address: [address] [place] [address] [place] [address] Unit #: [id number] REQ SEQ #: [id number] Location: ED Room #: Ordering: TONY VALLEJO [...] lymphadenopathy. There is mild bibasilar subsegmental atelectasis. Fidf-fn-yxtgwrbv degenerative changes of the lumbar spine. Mild [...] TONY VALLEJO MD, CHRISTOPHER R MDWhite Blood Xglbd3293-26-50 03:28:00 Test Item Value Reference Range Comments Blood leukocytes automated count (number/volume) (test 3.2 3.6-11.1 code = 6690-2) Red Blood Cnmdi9176-86-47 03:28:00 Test Item Value Reference Range Comments Blood erythrocytes automated count (number/volume) 3.52 4.27-5.49 (test code = 789-8) Bzshcvyzht8849-08-32 03:28:00 Test Item Value Reference Range Comments Blood hemoglobin measurement (mass/volume) (test code 11.9 12.9-16.1 = 718-7) Jbdrukauil7031-24-69 03:28:00 Test Item Value Reference Range Comments Automated blood hematocrit (volume fraction) (test 34.1 37.7-46.5 code = 4544-3) Mean Corpuscular Kjuwwi3963-98-12 03:28:00 Test Item Value Reference Range Comments Automated erythrocyte mean corpuscular volume (test 96.8 79.3-94.8 code = 787-2) Mean Corpuscular Ltxullivkn6641-15-78 03:28:00 Test Item Value Reference Range Comments Automated erythrocyte mean corpuscular hemoglobin 33.9 26.8-33.2 (mass per erythrocyte) (test code = 785-6) Mean Corpuscular Hemoglobin Picgwjn6803-51-13 03:28:00 Test Item Value Reference Range Comments Automated erythrocyte mean corpuscular hemoglobin 35.1 33.5-35.5 concentration measurement (mass/volume) (test code = 786-4) Red Cell Distribution Peqkh8961-84-41 03:28:00 Test Item Value Reference Range Comments Automated erythrocyte distribution width ratio (test 14.8 12.0-15.1 code = 788-0) Platelet Sfvdj0170-33-68 03:28:00 Test Item Value Reference Range Comments Automated blood platelet count 28 165-353 P latelet count verified by (count/volume) (test code = slid e estimate. CALLED BY Raquel 777-3) Thomas Terrell at 0358 TO RAFAL CARPIO RNED AND R/V. Mean Platelet Vsismm4727-46-26 03:28:00 Test Item Value Reference Range Comments Automated blood platelet mean volume measurement (test 8.6 7.5-10.6 code = 67103-3) Neutrophils (%) (Auto)2019-01-22 03:28:00 Test Item Value [...] (test 0.0 0.0-0.1 code = 704-7) Prothrombin Qgpy4469-75-23 03:28:00 Test Item Value Reference Range Comments Prothrombin time (PT) in platelet poor plasma by 17.9 10.8-14.2 coagulation assay (test code = 5902-2) Prothromb Time International Qlvmg4423-15-25 03:28:00 Test Item Value Reference Range Comments INR in Platelet poor plasma by 1.53 I NR Therapeutic Range: 2.0-3.0 Coagulation assay (test code = O ral Anticoagulant Therapy 6301-6) 2.5-3.5 Prosthet ic Heart Valves, Recurrent System ic Embolism Sodium Zynoq5957-42-95 03:00:00 Test Item Value Reference Range Comments Sodium blood (test code = 274096066) 139 137-144 Potassium Xrpgz5923-07-01 03:00:00 Test Item Value Reference Range Comments Potassium blood (test code = 469782582) 3.7 3.1-5.1 Chloride Puqqr7204-71-24 03:00:00 Test Item Value Reference Range Comments Chloride blood (test code = 277259209) 108 101-110 Carbon Dioxide Hmlqj6594-55-44 03:00:00 Test Item Value Reference Range Comments Carbon dioxide blood (test code = 42308679) 20 22-2 9 Glucose Eoiel7106-14-16 03:00:00 Test Item Value Reference Range Comments Glucose blood (test code = 76566170) 179 70-105 Blood Urea Bzboruzf3858-27-98 03:00:00 Test Item Value Reference Range Comments BUN (test code = 081411518) 9.0 8.4-25.7 Iiqdgqwqku1179-79-36 03:00:00 Test Item Value Reference Range Comments Creatinine blood (test code = 142270360) 0.77 0.72-1. 25 Estimated Creatinine Clearance Rchd3385-64-94 03:00:00 Test Item Value Reference Range Comments Estimation of creatinine 125.97 PT Ht: 175.26cm, PT Wt: clearance (test code = 109.5KG R esults monitored by [id number]) Pharmacy. Anion Pgf2703-00-79 03:00:00 Test Item Value Reference Range Comments Anion gap measurement (test code = 00470240) 15 7-1 6 Calcium Xoxfn8886-11-43 03:00:00 Test Item Value Reference Range Comments Calcium (test code = 92971814) 8.8 8.4-10.2 Total Bkxdyysek6763-72-67 03:00:00 Test Item Value Reference Range Comments Total bilirubin (test code = NSV7334) 1.7 0.1-1.2 Total Kunirul3690-30-48 03:00:00 Test Item Value Reference Range Comments Total protein blood (test code = 2885-2) 5.9 6.0-8.3 Vpclzsx4920-95-78 03:00:00 Test Item Value Reference Range Comments Albumin (test code = ZFN5013) 3.2 3.2-5.2 Gkvnaghw8353-25-64 03:00:00 Test Item Value Reference Range Comments Plasma globulin measurement (mass/volume) (test code = 2.7 2.6-4.6 77588-3) Albumin/Globulin Zjebc2202-07-52 03:00:00 Test Item Value Reference Range Comments Albumin to globulin ratio (test code = 984455) 1.2 1 .1-2.5 Aspartate Amino Transf (AST/SGOT)2019-01-22 03:00:00 Test Item Value Reference Range Comments AST (SGOT) ser/plas (test code = 56269954) 54 5-34 Alkaline Adllwsommmc2098-74-81 03:00:00 Test Item Value Reference Range Comments Alkaline phosphatase (test code = 10171813) 112 40-1 50 Alanine Aminotransferase (ALT/SGPT)2019-01-22 03:00:00 Test Item Value Reference Range Comments ALT (SGPT) ser/plas (test code = 1742-6) 40 0-55 Urine Rrwhe5241-79-67 02:30:00 Test Item Value Reference Range Comments Urine color determination (test code = 5778-6) YELLOW Urine Axyeqvglmb9894-62-88 02:30:00 Test Item Value Reference Range Comments Urine clarity determination (test code = 66488-6) CLEAR Urine Specific Rbprazb9635-70-46 02:30:00 Test Item Value Reference Range Comments Specific gravity of Urine by Refractometry automated 1.018 1.005-1.030 (test code = 76744-8) Urine gY6239-38-49 02:30:00 Test Item Value Reference Range Comments Urine pH measurement by automated test strip (test 6.0 5.0-8.0 code = 98028-4) Urine Leukocyte Ijpwmvco6540-46-28 02:30:00 Test Item Value Reference Range Comments Urine leukocyte esterase detection by automated NEGATIVE NEGATIVE test strip (test code = 62957-0) Urine Qnzvgzp2776-22-28 02:30:00 Test Item Value Reference Range Comments Urine nitrite detection by automated test strip NEGATIVE NEGATIVE (test code = 42213-3) Urine Wkbmnnd0510-39-66 02:30:00 Test Item Value Reference Range Comments Urine protein detection by automated test strip (test TRACE NEG-TRACE code = 56521-4) Urine Glucose (UA)2019-01-22 02:30:00 Test Item Value Reference Range Comments Urine glucose detection by automated test strip (test 1+ NEGATIVE code = 22949-9) Urine Ltvapkd9170-34-16 02:30:00 Test Item Value Reference Range Comments Urine ketone detection by automated test strip (test TRACE NEGATIVE code = 36341-3) Urine Irkqwxnphzkw5162-12-21 02:30:00 Test Item Value Reference Range Comments Urine urobilinogen measurement by automated test strip 8.0 <2.0 (mass/volume) (test code = 83098-3) Urine Hgpdruuss2407-80-48 02:30:00 Test Item Value Reference Range Comments Urine bilirubin detection by automated test strip NEGATIVE NEGATIVE (test code = 07168-4) Urine Oabbr2218-30-66 02:30:00 Test Item Value Reference Range Comments Urine erythrocytes detection by automated method (test 2+ NEGATIVE code = 66012-8) Urine Culture Jvgsgofzb9042-23-32 02:30:00 Test Item Value Reference Range Comments UA + culture (test code = NO Urine Culture was not indicated. 22731-1) Urine KQJ8661-73-81 02:30:00 Test Item Value Reference Range Comments RBC count ur auto (test code = 798-9) <20 0-2 Urine Dnode0367-24-84 02:30:00 Test Item Value Reference Range Comments Urine mucus detection by automated method (test code = SMALL 27918-4) CAT JKSR7401-65-26 14:02:[address] [address] Patient: RADHA VÁSQUEZ : 1960 Sex: M Address: [address] [place] [address] LAMIN DELGADO [address] [facility] #: [id number] Unit #: [id number] REQ SEQ #: [id number] Location: ED Room #: Ordering: IRENE ABDUL FEED PROJECT ENGINEER- Diagnosis: FLANK PAIN -------- CT ABD PELV [...] Signed by: LIZBETH PICKARD II, MD 11/22/18 0507 cc: CONCETTA BENTLEY,IRENE HOLDER MD FEED PROJECT ENGINEER-BCUrine Vcaar4761-32-06 13:01:00 Test Item Value Reference Range Comments Urine color determination (test code = 5778-6) YELLOW Urine Tjracfieap3888-12-02 13:01:00 Test Item Value Reference Range Comments Urine clarity determination (test code = 02231-0) CLEAR Urine Specific Hwrursa5173-35-16 13:01:00 Test Item Value Reference Range Comments Specific gravity of Urine by Refractometry automated 1.015 1.005-1.030 (test code = 49728-2) Urine tM6044-78-96 13:01:00 Test Item Value Reference Range Comments Urine pH (test code = 2756-5) 6.0 5.0-8.0 Urine CLG9743-00-21 13:01:00 Test Item Value Reference Range Comments Urine leukocyte esterase detection by automated test 0-5 0-5 strip (test code = 20961-7) Urine Vuwjfyt8490-83-50 13:01:00 Test Item Value Reference Range Comments Urine nitrite detection (test code = 13055-6) NEGATIVE NE GATIVE Urine Vdajakr7039-16-63 13:01:00 Test Item Value Reference Range Comments Urine protein detection (test code = 2887-8) NEGATIVE NEG -TRACE Urine Glucose (UA)2018-11-22 13:01:00 Test Item Value Reference Range Comments Urine glucose detection (test code = 2349-9) NEGATIVE NEG ATIVE Urine Fmludpl7142-94-53 13:01:00 Test Item Value Reference Range Comments Urine ketones detection (test code = 29060-8) NEGATIVE NE GATIVE Urine Zdlrzfxmvepn6247-55-76 13:01:00 Test Item Value Reference Range Comments Urine urobilinogen measurement (test code = 18240-8) >2.0 <2.0 Urine Tdofmsseg6304-61-39 13:01:00 Test Item Value Reference Range Comments Urine bilirubin detection (test code = 1977-8) NEGATIVE N EGATIVE Urine Jptty9538-68-92 13:01:00 Test Item Value Reference Range Comments Urine blood detection (test code = 54192-1) 1+ NEGA TIVE Urine Culture Gjrfzkyhr9459-12-19 13:01:00 Test Item Value Reference Range Comments UA + culture (test code = NO Urine Culture was not indicated. 49488-3) Urine JBQ6911-58-38 13:01:00 Test Item Value Reference Range Comments Automated urine sediment erythrocyte count by 3-5 0- 2 microscopy (number/high power field) (test code = 42232-3) Urine Cvggu7601-38-01 13:01:00 Test Item Value Reference Range Comments Mucus detection in urine sediment by light microscopy SMALL (test code = 8247-9) Bedside Nazobdfoxc2258-52-18 12:13:00 Test Item Value Reference Range Comments Serum or plasma creatinine measurement (mass/volume) 0.6 0.52-1.04 (test code = 2160-0) Bedside Troponin Q2112-79-45 11:59:00 Test Item Value Reference Range Comments Bedside Troponin I (test code = Bedside Troponin I) 0.01 0.03-0.118 White Blood Erslm6954-79-98 11:50:00 Test Item Value Reference Range Comments Blood leukocytes automated count (number/volume) (test 5.7 3.6-11.1 code = 6690-2) Red Blood Ogmjp4016-59-07 11:50:00 Test Item Value Reference Range Comments Blood erythrocytes automated count (number/volume) 4.27 4.27-5.49 (test code = 789-8) Pdhwmoppgu3344-53-12 11:50:00 Test Item Value Reference Range Comments Blood hemoglobin measurement (mass/volume) (test code 14.5 12.9-16.1 = 718-7) Gvgcrwayhr5558-13-90 11:50:00 Test Item Value Reference Range Comments Automated blood hematocrit (volume fraction) (test 41.6 37.7-46.5 code = 4544-3) Mean Corpuscular Smwwvy3306-47-36 11:50:00 Test Item Value Reference Range Comments Automated erythrocyte mean corpuscular volume (test 97.3 79.3-94.8 code = 787-2) Mean Corpuscular Mcxshzxmzw6291-43-04 11:50:00 Test Item Value Reference Range Comments Automated erythrocyte mean corpuscular hemoglobin 33.9 26.8-33.2 (mass per erythrocyte) (test code = 785-6) Mean Corpuscular Hemoglobin Brcxpii2597-67-25 11:50:00 Test Item Value Reference Range Comments Automated erythrocyte mean corpuscular hemoglobin 34.8 33.5-35.5 concentration measurement (mass/volume) (test code = 786-4) Red Cell Distribution Lqoam5580-98-83 11:50:00 Test Item Value Reference Range Comments Automated erythrocyte distribution width ratio (test 15.5 12.0-15.1 code = 788-0) Platelet Qddhg9480-35-78 11:50:00 Test Item Value Reference Range Comments Automated blood platelet count 37 165-353 P LT CALLED BY Radha Whitten at (count/volume) (test code = 1230 TO AG LOPESRN AND R/V. 777-3) Platelet count v erified by slide estimate. Mean Platelet Ukqbmx1303-29-21 11:50:00 Test Item Value Reference Range Comments Automated blood platelet mean volume measurement (test 8.9 7.5-10.6 code = 83036-4) Neutrophils (%) (Auto)2018-11-22 11:50:00 Test Item Value [...] (test 0.0 0.0-0.1 code = 704-7) Prothrombin Rchn6370-80-01 11:50:00 Test Item Value Reference Range Comments Prothrombin time (PT) in platelet poor plasma by 16.3 10.8-14.2 coagulation assay (test code = 5902-2) Prothromb Time International Rwrmt4211-92-16 11:50:00 Test Item Value Reference Range Comments INR in Platelet poor plasma by 1.36 I NR Therapeutic Range: 2.0-3.0 Coagulation assay (test code = O ral Anticoagulant Therapy 6301-6) 2.5-3.5 Prosthet ic Heart Valves, Recurrent System ic Embolism Sodium Evjue0736-02-16 11:50:00 Test Item Value Reference Range Comments Sodium blood (test code = 812079843) 140 137-144 Potassium Kislj6138-62-31 11:50:00 Test Item Value Reference Range Comments Potassium blood (test code = 925254246) 3.9 3.1-5.1 Chloride Qfgme4327-42-78 11:50:00 Test Item Value Reference Range Comments Chloride blood (test code = 428843957) 111 101-110 Carbon Dioxide Lyfop9451-76-38 11:50:00 Test Item Value Reference Range Comments Carbon dioxide blood (test code = 92125765) 20 22-2 9 Glucose Tuurj0676-03-63 11:50:00 Test Item Value Reference Range Comments Glucose blood (test code = 23198956) 120 70-105 Blood Urea Jwdyyonj2076-86-24 11:50:00 Test Item Value Reference Range Comments BUN (test code = 957242142) 9.0 8.4-25.7 Hxhlupvtxz7275-55-66 11:50:00 Test Item Value Reference Range Comments Creatinine blood (test code = 506179364) 0.72 0.72-1. 25 Estimated Creatinine Clearance Ikjb1484-33-39 11:50:00 Test Item Value Reference Range Comments Estimation of creatinine 133.03 PT Ht: 175.26cm, PT Wt: clearance (test code = 106.8KG R esults monitored by [id number]) Pharmacy. Anion Ads4136-48-74 11:50:00 Test Item Value Reference Range Comments Anion gap measurement (test code = 74534424) 13 7-1 6 Calcium Jzupx9714-92-48 11:50:00 Test Item Value Reference Range Comments Calcium (test code = 21745787) 8.8 8.4-10.2 Total Xdwvfwvis1005-91-29 11:50:00 Test Item Value Reference Range Comments Total bilirubin (test code = FWX8942) 1.6 0.1-1.2 Direct Gcrdfiuar4285-25-81 11:50:00 Test Item Value Reference Range Comments Direct bilirubin (test code = 1968-7) 0.7 0.0-0.5 Indirect Ymfpffxzm7392-98-34 11:50:00 Test Item Value Reference Range Comments Serum or plasma indirect bilirubin measurement 0.9 0 .0-1.1 (mass/volume) (test code = 1971-1) Total Pkuwjny4688-30-23 11:50:00 Test Item Value Reference Range Comments Total protein blood (test code = 2885-2) 6.3 6.0-8.3 Johsvwm9110-50-19 11:50:00 Test Item Value Reference Range Comments Albumin (test code = JGE0752) 3.5 3.2-5.2 Ufoyaoxd9579-26-16 11:50:00 Test Item Value Reference Range Comments Plasma globulin measurement (mass/volume) (test code = 2.8 2.6-4.6 69616-5) Albumin/Globulin Xbuju6905-66-92 11:50:00 Test Item Value Reference Range Comments Albumin to globulin ratio (test code = 933872) 1.3 1 .1-2.5 Aspartate Amino Transf (AST/SGOT)2018-11-22 11:50:00 Test Item Value Reference Range Comments AST (SGOT) ser/plas (test code = 76683557) 35 5-34 Alkaline Anxgwmljgjb3467-34-13 11:50:00 Test Item Value Reference Range Comments Alkaline phosphatase (test code = 75417200) 110 40-1 50 Alanine Aminotransferase (ALT/SGPT)2018-11-22 11:50:00 Test Item Value Reference Range Comments ALT (SGPT) ser/plas (test code = 1742-6) 24 0-55 Cgugvo0131-13-46 11:50:00 Test Item Value Reference Range Comments Lipase ser/plas (test code = 3040-3) 73 7-78 Magnesium Ejjig2536-56-62 11:50:00 Test Item Value Reference Range Comments Magnesium blood (test code = 632835583) 1.8 1.5-2.6 B-Type Natriuretic Eqqphmc7983-86-37 11:50:00 Test Item Value Reference Range Comments Brain natriuretic peptide >10.0 0.0-100.0 Plasma concentrations of (test code = 34978-2) natriureti c peptides may be elevated in leonid ents with acute myocardial infar ction and renal insufficiency. White Blood Gyxhh2125-83-87 13:30:00 Test Item Value Reference Range Comments Blood leukocytes automated count (number/volume) (test 4.6 3.6-11.1 code = 6690-2) Red Blood Vkssq6605-95-03 13:30:00 Test Item Value Reference Range Comments Blood erythrocytes automated count (number/volume) 4.05 4.27-5.49 (test code = 789-8) Cbpetbuzxo2473-12-75 13:30:00 Test Item Value Reference Range Comments Blood hemoglobin measurement (mass/volume) (test code 13.2 12.9-16.1 = 718-7) Msmcrqpoer7389-90-99 13:30:00 Test Item Value Reference Range Comments Automated blood hematocrit (volume fraction) (test 38.4 37.7-46.5 code = 4544-3) Mean Corpuscular Jrjqfx6005-77-99 13:30:00 Test Item Value Reference Range Comments Automated erythrocyte mean corpuscular volume (test 94.8 79.3-94.8 code = 787-2) Mean Corpuscular Jjpqbyjcvj5546-50-77 13:30:00 Test Item Value Reference Range Comments Automated erythrocyte mean corpuscular hemoglobin 32.6 26.8-33.2 (mass per erythrocyte) (test code = 785-6) Mean Corpuscular Hemoglobin Oiellno6399-17-75 13:30:00 Test Item Value Reference Range Comments Automated erythrocyte mean corpuscular hemoglobin 34.4 33.5-35.5 concentration measurement (mass/volume) (test code = 786-4) Red Cell Distribution Tzsev6848-71-39 13:30:00 Test Item Value Reference Range Comments Automated erythrocyte distribution width ratio (test 15.9 12.0-15.1 code = 788-0) Platelet Wrsne1856-48-27 13:30:00 Test Item Value Reference Range Comments Automated blood platelet count 33 165-353 C ALLED BY Galilea Stover at (count/volume) (test code = 1353 TO NEETA YEH RN AND R/V. 777-3) Platelet count v erified by slide estimate. Mean Platelet Xccqae6194-09-50 13:30:00 Test Item Value Reference Range Comments Automated blood platelet mean volume measurement (test 9.4 7.5-10.6 code = 78646-3) Neutrophils (%) (Auto)2018-04-10 13:30:00 Test Item Value [...] (test 0.0 0.0-0.1 code = 704-7) CAT BFQQ3323-58-01 12:42:[address] [address] Patient: RADHA VÁSQUEZ : 1960 Sex: M Address: [address] [place] [address] [place] [address] [facility] #: [id number] Unit #: [id number] [facility] SEQ #: [id number] Location: [facility] Room #: Ordering: DEIRDRE GARCIA PA-C Diagnosis: [...] MD Signed by: AMADOR LYLES MD 04/10/18 8582 cc: DEIRDRE GARCIA PA-C, JOSEPH MDProthrombin Time 2018-04-10 12:30:00 Test Item Value Reference Range Comments Prothrombin time (PT) in platelet poor plasma by 22.5 10.8-14.2 coagulation assay (test code = 5902-2) Prothromb Time International Yoexn7666-92-14 12:30:00 Test Item Value Reference Range Comments INR in Platelet poor plasma by 2.05 I NR Therapeutic Range: 2.0-3.0 Coagulation assay (test code = O ral Anticoagulant Therapy 6301-6) 2.5-3.5 Prosthet ic Heart Valves, Recurrent System ic Embolism Sodium Pkbbn8346-68-72 11:30:00 Test Item Value Reference Range Comments Sodium blood (test code = 544986013) 141 137-144 Potassium Ublyg7466-86-15 11:30:00 Test Item Value Reference Range Comments Potassium blood (test code = 796688909) 3.8 3.1-5.1 Chloride Gpgcl0616-88-74 11:30:00 Test Item Value Reference Range Comments Chloride blood (test code = 303709850) 109 101-110 Carbon Dioxide Hruax8055-14-63 11:30:00 Test Item Value Reference Range Comments Carbon dioxide (test code = 47014552) 22 22-29 Glucose Dzjfd2320-86-36 11:30:00 Test Item Value Reference Range Comments Glucose blood (test code = 81903665) 152 70-105 Blood Urea Byxalhzu0611-89-54 11:30:00 Test Item Value Reference Range Comments BUN (test code = 805314216) 8.0 8.4-25.7 Xrqmtbqfie3296-83-07 11:30:00 Test Item Value Reference Range Comments Creatinine blood (test code = 121019734) 0.76 0.72-1. 25 Anion Qpb4897-20-58 11:30:00 Test Item Value Reference Range Comments Anion gap measurement (test code = 44872137) 14 7-1 6 Calcium Zjdbg1235-05-66 11:30:00 Test Item Value Reference Range Comments Calcium (test code = 74281253) 8.9 8.4-10.2 Total Ybcpeqycn3878-46-38 11:30:00 Test Item Value Reference Range Comments Total bilirubin (test code = HUH9387) 1.7 0.1-1.2 Total Iyzsjos7917-50-47 11:30:00 Test Item Value Reference Range Comments Total protein blood (test code = 2885-2) 6.2 6.0-8.3 Wtzoxlv4413-15-94 11:30:00 Test Item Value Reference Range Comments Albumin (test code = OTC8205) 3.2 3.2-5.2 Tltixqwc6973-28-10 11:30:00 Test Item Value Reference Range Comments Plasma globulin measurement (mass/volume) (test code = 3.0 2.6-4.6 21822-4) Albumin/Globulin Vswxs6678-81-65 11:30:00 Test Item Value Reference Range Comments Albumin to globulin ratio (test code = 055916) 1.1 1 .1-2.5 Total Creatine Ddswlf7665-76-17 11:30:00 Test Item Value Reference Range Comments Total creatine kinase measurement (test code = 133 3 7-289 482744544) Aspartate Amino Transf (AST/SGOT)2018-04-10 11:30:00 Test Item Value Reference Range Comments AST (SGOT) ser/plas (test code = 96928436) 37 5-34 Alkaline Edxpmzfuspg6089-92-88 11:30:00 Test Item Value Reference Range Comments Alkaline phosphatase (test code = 85653195) 99 40-1 50 Alanine Aminotransferase (ALT/SGPT)2018-04-10 11:30:00 Test Item Value Reference Range Comments ALT (SGPT) ser/plas (test code = 1742-6) 33 0-55 Prothrombin Ntsq-CYH2953-59-30 13:42:00 Test Item Value Reference Range Comments INR (test code = 497575) 2.0 PT (test code = 099990) 20.9 sec 9.0-11.5 Prothrombin Bfgc-MDC3187-46-30 00:01:00 Test Item Value Reference Range Comments INR (test code = 809128) 3.2 PT (test code = 314604) 32.5 sec 9.0-11.5 T4 Free (FT4)2017-07-02 01:31:00 Test Item Value Reference Range Comments Free T4 (test code = 435299) 0.9 ng/dL 0.8-1.8 CMP with Estimated IPJ1465-96-57 14:40:00 Test Item Value Reference Range Comments Chloride (test code = 796453) 107 mmol/L 98-110 Potassium (test code = 909602) 4.1 mmol/L 3.5-5.3 Est GFR, NonAfrican Ukrainian (test code = 019419) 56 mL/min >=60 Total Protein (test code = 117063) 7.2 g/dL 6.1-8.1 Sodium (test code = 809836) 140 mmol/L 135-146 Glucose (test code = 031181) 104 mg/dL 65-99 Alkaline Phosphatase (test code = 890869) 134 U/L 40-115 Creatinine (test code = 347968) 1.39 mg/dL 0.70-1.33 BUN (test code = 032628) 7 mg/dL 7-25 Est GFR, (test code = 177479) 65 mL/min > =60 Bilirubin, Total (test code = 712584) 1.6 mg/dL 0.2-1.2 CO2 (test code = 109359) 24 mmol/L 20-31 AST/SGOT (test code = 532208) 52 U/L 10-35 Calcium (test code = 216363) 9.9 mg/dL 8.6-10.3 Albumin (test code = 527093) 3.8 g/dL 3.6-5.1 ALT/SGPT (test code = 606136) 46 U/L 9-46 Lipid Rflkh3983-72-68 14:40:00 Test Item Value Reference Range Comments Total Chol/HDL Ratio (test code = 533604) 2.9 Ratio <=5.0 HDL Cholesterol (test code = 042225) 65 mg/dL >=40 LDL Cholesterol (Calc) (test code = 855415) 107 mg/dL <130 Cholesterol (test code = 470077) 189 mg/dL 125-200 VLDL Cholesterol (Calc) (test code = 007176) 17 mg/dL <30 Triglycerides (test code = 310984) 86 mg/dL <150 Hemoglobin A1c with hIH1586-55-74 14:40:00 Test Item Value Reference Range Comments Hemoglobin A1C (test code = 579508) 4.9 % <5.7 eAG (calc) (test code = 006371) 94 mg/dL Prothrombin Feok-JPR2154-86-03 14:40:00 Test Item Value Reference Range Comments INR (test code = 924682) 1.2 PT (test code = 947350) 13.1 sec 9.0-11.5 Hepatitis C Ab w/ Reflex HCVRNA,Xdf2276-15-69 14:40:00 Test Item Value Reference Range Comments Hepatitis C Antibody (test code = 786651) REACTIVE NEGATI VE Hepatitis C Antibody (test code = 6732431) REACTIVE NEGAT SYLVIA Hepatitis C Antibody (test code = 7705700) REACTIVE NEGAT SYLVIA Hep B Surface Ag rflx Xiaqxztwxefa6194-70-81 14:40:00 Test Item Value Reference Range Comments Hepatitis B Surface Antigen (test code = 871441) NEGATIVE NEGATIVE Hepatitis B Surface Antigen (test code = 7431889) NEGATIVE NEGATIVE Hepatitis B Surface Antigen (test code = 3286014) NEGATIVE NEGATIVE JIO3654-69-62 14:40:00 Test Item Value Reference Range Comments TSH (test code = 154170) 0.20 mIU/L 0.40-4.50 Hepatitis B Surface Antibody, Zdhck8920-98-09 14:40:00 Test Item Value Reference Range Comments Hepatitis B Surface Ab, Quant (test code = <5.0 mIU/mL 658161) Hepatitis B Surface Ab, Quant (test code = <5.0 mIU/mL 8216901) Hepatitis B Surface Ab, Quant (test code = <5.0 mIU/mL 1634306) CBC NO Diff (Complete Blood Count)2017-06-30 14:40:00 Test Item Value Reference Range Comments MCHC (test code = 919928) 35.3 g/dL 32.0-36.0 MCH (test code = 977563) 33.0 pg 27.0-33.0 MCV (test code = 045421) 93.4 fL 80.0-100.0 Hemoglobin (test code = 484853) 16.1 g/dL 13.2-17.1 RDW (test code = 440595) 14.6 % 11.0-15.0 Hematocrit (test code = 004454) 45.6 % 38.5-50.0 RBC (test code = 163065) 4.88 MIL/uL 4.20-5.80 WBC (test code = 489556) 6.2 K/uL 3.8-10.8 Hepatitis A Antibody, Awpxp7172-62-99 14:40:00 Test Item Value Reference Range Comments Hepatitis A Ab, Total (test code = 009536) NON REACTIVE NON R EACTIVE Hepatitis A Ab, Total (test code = 6085621) NON REACTIVE NON REACTIVE Hepatitis A Ab, Total (test code = 3045379) NON REACTIVE NON REACTIVE YDAPPBMWX7631-46-96 16:52:[address] [address] Patient: ELLE VÁSQUEZ : 1960 Sex: M Address: [address] [place] [address] [place] [address] Unit #: [id number] REQ SEQ #: [id number] Location: [facility] Room #: Ordering: MATEO MCCARTHY [...] Signed by: LIZBETH PICKARD II, MD 06/27/17 7036 cc: LIZBETH PICKARD II, MD, JUSTIN PA-C [...] abdominal pain Active Chills (without fever) Active Dysuria Active Other disorders of bilirubin metabolism Active 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 Low back pain Active [facility] (current) use of anticoagulants Active Essential (primary) hypertension Active Body mass index (BMI) 36.0-36.9, adult Active Other intervertebral disc displacement, Active lumbar region 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 Essential (primary) hypertension Active Encounter for immunization Active Low back pain Active Other chronic pain Active 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 Acute embolism and thombos unsp deep vn unsp Active lower extremity Encounters Start End Encounter Admission Attending Care Care Encounter Date/Time Date/Time Type Type Clinicians Facility Department ID 2019-02-15 Inpatient NAVID [facility] [id number] 11:00:00 JAYLENE 3 2020-01-24 2020-01-24 Outpatient [facility] [id number] 00:00:00 00:00:00 2020-01-23 2020-01-23 Outpatient [facility] [id number]_ 16:20:34 16:21:53 [id number] 2020-01-23 2020-01-23 Outpatient [facility] [id number] 10:00:00 10:20:00 2020-01-23 2020-01-23 Outpatient [facility] [id number] 00:00:00 00:00:00 [id number] 2020-01-23 Outpatient [facility] [id number] 00:00:00 00:00:00 [id number] 2020-01-23 Outpatient [facility] [id number] 00:00:00 00:00:00 2020-01-23 2020-01-23 Outpatient [facility] [id number] 00:00:00 00:00:00 2020-01-23 2020-01-23 Outpatient [facility] [id number] 00:00:00 00:00:00 2020-01-19 2020-01-19 Outpatient [facility] [id number] 00:00:00 00:00:00 2020-01-19 2020-01-19 Outpatient [facility] [id number] 00:00:00 00:00:00 2019-10-22 2019-10-22 [facility] [id number] 09:30:00 09:30:00 Lb Children 74-4K5Z-6UB s 6-5UV1I52MS and 36F Multispecialt y Clinic, 2019-09-22 2019-09-22 [facility] 58 [id number] 08:15:00 08:15:00 Lb Children C3-5F1N-617 s 2-Q1016DR2B and 5C3 Multispecialt y Clinic, 2019-09-03 2019-09-03 [facility] 5 [id number] 12:00:00 12:00:00 Ovidio Children A4-63S3-30P s 4-72CYD0GY3 and A5B Multispecialt y Clinic, 2019-08-20 2019-08-20 [facility] 56 [id number] 10:15:00 10:15:00 Lb Children 11-9YE0-442 s [id number] and FAD Multispecialt y Clinic, 2019-08-08 2019-08-17 I 1 [facility] 20 [id number] 19:40:00 13:59:00 Anderson Hi 2019-07-29 2019-07-29 [facility] 89 [id number] 10:30:00 10:30:00 Lb Children 6C-4HR3-N5Y s [id number] and 11D Multispecialt y Clinic, 2019-07-06 2019-07-06 [facility] B8 [id number] 08:15:00 08:15:00 Lb Children???s 90-49F3 -840 and [id number] Multispecialt 980 y Clini 2019-06-11 2019-06-11 [facility] 94 [id number] 09:45:00 09:45:00 Lb Children???s 0E-46E1 -A73 and [id number] Multispecialt 523 y Clini 2019-05-17 2019-05-17 Emergency ED WOODSON, [facility] [id number] 01:27:00 04:04:00 KAMILLE 8 2019-05-11 2019-05-[facility] [id number] 08:30:00 08:30:00 Lb Children???s AC-4C98 -BCC and 3-[id number] Multispecialt AC7 y Clini 2019-05-03 2019-05-03 Outpatient Justin, [facility] 59 [id number] 14:45:00 14:45:00 Lb Children???s CE-457A -82A and [id number] Multispecialt 93C y Clini 2019-05-01 2019-05-01 Emergency ED FLY MAKER, [facility] [id number] 16:02:00 19:20:00 MATEO 5 2019-03-25 2019-03-25 [facility] [id number] 10:45:00 10:45:00 Lb Children FC-47CC-984 s 1-[id number] and CBF Multispecialt y Clinic, 2019-03-10 2019-03-11 Emergency ED ORO, [facility] [id number] 23:09:00 03:35:00 KEZIA 9 2019-02-26 2019-02-26 Emergency ED MACIEL, [facility] [id number] 11:26:00 16:23:00 ROBINSON 5 2019-02-24 2019-02-24 Emergency ED ORO, [facility] [id number] 01:03:00 05:22:00 KEZIA 2 2019-02-14 2019-02-15 Emergency ED [facility] [id number] [id number] 18:47:00 00:17:00 4 2019-01-30 2019-01-30 Emergency ED MACIEL, [facility] [id number] 09:09:00 12:30:00 ROBINSON 7 2019-01-29 2019-01-30 Emergency ED ORO, [facility] [id number] 23:12:00 02:50:00 KEZIA 7 2019-01-25 2019-01-25 Emergency ED GARCIA, [facility] [id number] 14:48:00 18:34:00 DEIRDRE 9 2019-01-22 2019-01-22 Emergency ED TONY VALLEJO [facility] [id number] 02:10:00 05:54:00 6 2018-11-22 2018-11-22 Emergency ED MACIEL, [facility] [id number] 11:12:00 15:54:00 ROBINSON 2 2018-05-12 2018-05-12 Emergency ED MACIEL, [facility] [id number] 08:06:00 09:18:00 ROBINSON 1 2018-05-02 2018-05-02 Emergency ED GIULIANO, [facility] [id number] 05:17:00 07:00:00 KEZIA 8 2018-04-14 2018-04-14 Emergency ED DATEY, [facility] [id number] 03:03:00 04:28:00 KEENAN 7 2018-04-10 2018-04-10 Emergency ED GARCIA, [facility] [id number] 11:02:00 14:52:00 DEIRDRE 1 2018-04-01 2018-04-01 Emergency ED MACIEL, [facility] [id number] 06:43:00 08:15:00 ROBINSON 5 2017-09-10 2017-09-10 Emergency ED SHARI, [facility] [id number] 18:33:00 20:32:00 MATEO 2 2017-07-27 2017-07-27 Outpatient Alfredo, [facility] 3C [id number] 15:00:00 15:00:00 Silverio [facility] [id number] s 1-34W0ND3I3 and F39 Multispecialt [facility] [place] 2017-07-26 2017-07-26 Emergency ED BIZUB, [facility] [id number] 17:42:00 19:43:00 ROBYN 5 2017-07-22 2017-07-22 Emergency ED GARCIA, [facility] [id number] 19:38:00 21:41:00 DEIRDRE 9 2017-07-15 2017-07-15 Outpatient Reinmikhail, [facility] [id number] 10:30:00 10:30:00 Silverio Plasencia [id number] s [id number] [facility] [place] 2017-07-13 2017-07-13 Emergency ED GARCIA, [facility] [id number] 19:42:00 21:48:00 DEIRDRE 6 2017-07-07 2017-07-07 Emergency ED NHAN, [facility] [id number] 18:49:00 21:03:00 NICK 3 2017-06-30 2017-06-30 Outpatient Reindl, [facility] [id number] 14:00:00 14:00:00 Silverio Plasencia [id number] [facility], ALPHONSE 2017-06-27 2017-06-27 Emergency ED GARCIA, [facility] [place] [id number] 15:45:00 17:28:00 DEIRDRE 3 2017-02-16 2017-02-16 Emergency ED DAT, [facility] [place] [id number] 02:41:00 05:56:00 KEENAN 3 Immunizations Ordered [...] 2019-05-17 01:30:00 107.7000 kg HEIGHT 2019-05-17 01:30:00 175.416990 cm WEIGHT 2019-05-17 01:27:00 107.7000 kg HEIGHT 2019-05-17 01:27:00 175.344637 cm WEIGHT 2019-05-01 16:06:00 103.0000 kg HEIGHT 2019-05-01 16:06:00 172.903640 cm WEIGHT 2019-05-01 16:02:00 103.0000 kg HEIGHT 2019-05-01 16:02:00 172.858007 cm WEIGHT 2019-03-10 23:15:00 108.2000 kg HEIGHT 2019-03-10 23:15:00 175.631789 cm WEIGHT 2019-03-10 23:09:00 108.2000 kg HEIGHT 2019-03-10 23:09:00 175.321041 cm WEIGHT 2019-02-26 11:47:00 107.6000 kg HEIGHT 2019-02-26 11:47:00 175.360078 cm WEIGHT 2019-02-26 11:26:00 107.6000 kg HEIGHT 2019-02-26 11:26:00 175.530037 cm WEIGHT 2019-02-24 01:09:00 107.1000 kg HEIGHT 2019-02-24 01:09:00 175.735336 cm WEIGHT 2019-02-24 01:03:00 107.1000 kg HEIGHT 2019-02-24 01:03:00 175.584808 cm WEIGHT 2019-02-14 19:48:00 109.0000 kg HEIGHT 2019-02-14 19:48:00 175.493984 cm WEIGHT 2019-02-14 18:47:00 109.0000 kg HEIGHT 2019-02-14 18:47:00 175.527522 cm WEIGHT 2019-01-30 09:14:00 108.4000 kg HEIGHT 2019-01-30 09:14:00 175.632998 cm WEIGHT 2019-01-30 09:09:00 108.4000 kg HEIGHT 2019-01-30 09:09:00 175.800955 cm WEIGHT 2019-01-30 00:18:00 108.4000 kg HEIGHT 2019-01-30 00:18:00 175.007717 cm WEIGHT 2019-01-29 23:12:00 108.4000 kg HEIGHT 2019-01-29 23:12:00 175.331801 cm WEIGHT 2019-01-25 15:28:00 109.0000 kg HEIGHT 2019-01-25 15:28:00 175.286053 cm WEIGHT 2019-01-25 14:48:00 109.0000 kg HEIGHT 2019-01-25 14:48:00 175.591171 cm WEIGHT 2019-01-22 02:16:00 109.5000 kg HEIGHT 2019-01-22 02:16:00 175.522473 cm WEIGHT 2019-01-22 02:10:00 109.5000 kg HEIGHT 2019-01-22 02:10:00 175.689770 cm WEIGHT 2018-11-22 11:41:00 106.8000 kg HEIGHT 2018-11-22 11:41:00 175.679817 cm WEIGHT 2018-11-22 11:12:00 106.8000 kg HEIGHT 2018-11-22 11:12:00 175.749985 cm WEIGHT 2018-05-12 08:12:00 110.9000 kg HEIGHT 2018-05-12 08:12:00 175.773402 cm WEIGHT 2018-05-12 08:06:00 110.9000 kg HEIGHT 2018-05-12 08:06:00 175.042296 cm WEIGHT 2018-05-02 05:20:00 113.6000 kg HEIGHT 2018-05-02 05:20:00 175.125409 cm WEIGHT 2018-05-02 05:17:00 113.6000 kg HEIGHT 2018-05-02 05:17:00 175.569327 cm WEIGHT 2018-04-14 03:07:00 110.5000 kg HEIGHT 2018-04-14 03:07:00 175.066122 cm WEIGHT 2018-04-14 03:03:00 110.5000 kg HEIGHT 2018-04-14 03:03:00 175.598011 cm WEIGHT 2018-04-10 11:05:00 109.5000 kg HEIGHT 2018-04-10 11:05:00 175.359203 cm WEIGHT 2018-04-10 11:02:00 109.5000 kg HEIGHT 2018-04-10 11:02:00 175.891443 cm WEIGHT 2018-04-01 07:09:00 111.2000 kg HEIGHT 2018-04-01 07:09:00 175.809479 cm WEIGHT 2018-04-01 06:43:00 111.2000 kg HEIGHT 2018-04-01 06:43:00 175.305477 cm WEIGHT 2017-09-10 18:45:00 109.900 kg HEIGHT 2017-09-10 18:45:00 175.081173 cm WEIGHT 2017-09-10 18:33:00 109.900 kg HEIGHT 2017-09-10 18:33:00 175.380012 cm HEIGHT 2017-07-26 17:47:00 175.312392 cm WEIGHT 2017-07-26 17:47:00 110.000 kg WEIGHT 2017-07-26 17:42:00 110.000 kg HEIGHT 2017-07-26 17:42:00 175.740001 cm WEIGHT 2017-07-22 20:02:00 109.600 kg WEIGHT 2017-07-22 19:38:00 109.600 kg WEIGHT 2017-07-13 19:56:00 109.500 kg HEIGHT 2017-07-13 19:56:00 175.527886 cm WEIGHT 2017-07-13 19:42:00 109.500 kg HEIGHT 2017-07-13 19:42:00 175.427768 cm WEIGHT 2017-07-07 18:53:00 107.200 kg HEIGHT 2017-07-07 18:53:00 175.508142 cm WEIGHT 2017-07-07 18:49:00 107.200 kg HEIGHT 2017-07-07 18:49:00 175.490181 cm WEIGHT 2017-06-27 15:58:00 110.100 kg WEIGHT 2017-06-27 15:45:00 110.100 kg WEIGHT 2017-02-16 03:02:00 114.700 kg HEIGHT 2017-02-16 03:02:00 175.058129 cm WEIGHT 2017-02-16 02:41:00 114.700 kg HEIGHT 2017-02-16 02:41:00 175.415791 cm
== END 2020-08-08 10:07 | disposition home or self-care (01) ==
LOC: ER 22:57
DX: N39.0 Urinary tract infection, site not specified (principal); R31.9 Hematuria, unspecified; N20.0 Calculus of kidney; M54.9 Dorsalgia, unspecified; Z96.0 Presence of urogenital implants; N13.30 Unspecified hydronephrosis; F17.200 Nicotine dependence, unspecified, uncomplicated; I10 Essential (primary) hypertension; Z88.1 Allergy status to other antibiotic agents
CPT/HCPCS: 99285; 96372; 74176; J2270; J3490

== ENCOUNTER 2020-08-21 16:19 | Emergency (ER) | payer MEDICARE ==
[2020-08-21 17:30] LABS: APPEARANCE,URINE SLIGHTLY-CLOUDY; BILIRUBIN,URINE NEGATIVE (NEGATIVE); COLOR,URINE YELLOW; GLUCOSE, URINE NEGATIVE (NEGATIVE); KETONES,URINE NEGATIVE (NEGATIVE); LEUKOCYTE ESTERASE,URINE LARGE (NEGATIVE); NITRITE,URINE NEGATIVE (NEGATIVE); PROTEIN,URINE >=500 mg/dL (NEGATIVE); URINE SPECIFIC GRAVITY 1.018; UROBILINOGEN,URINE NEGATIVE mg/dL (<2.0)
--- NOTE | 2020-08-21 18:54 | ER Document Report ---
ED Medical Screen (RME) - General Chief Complaint: Possible Kidney Stone Stated Complaint: POSSIBLE KIDNEY STONE Time Seen by Provider: 08/21/20 18:37 Primary Care Provider: STEVEN VILLALOBOS MD [Primary Care Provider] - Follow up as needed Mode of Arrival: Ambulatory Information source: Patient Notes: Patient is a 59-year-old male who returns emergency room complaining of flank pain. Patient was seen here in on August 07 for similar presentation that the CT showed no evidence of hydronephrosis. He went to another ER on the where there CT showed increasing hydronephrosis with consideration that this might be a blockage in the ureteral stent. Patient contacted his urologist he says he cannot see him until 14 September. Patient states that his pain is increasing substantially he cannot sleep at night. He contacted his pain management group trying to get increased amount of medications and they told him absolutely not. He asked him what to do and I told him he needed to go to ER. Patient is here requesting additional pain medications. Physical examination: Shows patient to be well-nourished well-developed 59-year-old male no apparent distress on examination. Cardiac: Regular rate and rhythm with no murmurs. Lungs: Bilateral breath sounds increased clear to auscultation. Abdomen: Bowel sounds are present 4 quads patient is slightly tender on the left side with some positive left-sided flank tenderness to percussion. Given the findings on patient's CT done on the at the other ER and having a clear CT here on the I discussed the case with Dr. Epperson who stated that there is little we can do about giving him pain medications to go but will be happy to see him here in the back give him something to calm him down here but have to send him home. In reading the body of the letter it was also mentioned that there might be a left lower lobe pneumonia versus atelectasis on the CT reading that was not mentioned to the patient in the past so we will go and get a chest x-ray and some lab work as well. I have greeted and performed a rapid initial assessment of this patient. A comprehensive ED assessment and evaluation of the patient, analysis of test results and completion of the medical decision making process will be conducted by additional ED providers. Dictation of this chart was performed using voice recognition software; therefore, there may be some unintended grammatical errors. TRAVEL OUTSIDE OF THE [place] IN LAST 30 DAYS: No - Related Data Allergies/Adverse Reactions: erythromycin base Allergy (Verified 08/21/20 18:26) hydromorphone [From Dilaudid] Adverse Reaction (Verified 08/21/20 18:26) palpations ketorolac [From Toradol] Adverse Reaction (Verified 08/21/20 18:26) Past Medical History - Past Medical History Cardiac Medical History: Reports: Hx DVT, Hx Hypercholesterolemia, Hx Hypertension Neurological Medical History: Reports: Hx Cerebrovascular Accident - TIA Endocrine Medical History: Denies: Hx Diabetes Mellitus Type 2 Renal/ Medical History: Reports: Hx Kidney Stones. Denies: Hx Peritoneal Dialysis GI Medical History: Reports: Hx Cirrhosis, Hx Hepatitis - History of hepatitis C. He has had treatment. Musculoskeltal Medical History: Reports Hx Arthritis Psychiatric Medical History: Reports: Hx Post Traumatic Stress Disorder Infectious Medical History: Reports: Hx Hepatitis - History of hepatitis C. He has had treatment. Past Surgical History: Reports: Hx Abdominal Surgery - hernia, Hx Appendectomy, Hx Cholecystectomy, Hx Herniorrhaphy, Hx Kidney (Renal Surgery) - kidney stones, bilateral ureteral stents on 02/08/2019, right stent removal, Hx Orthopedic Surgery - Has had cervical spine surgery, right Knee Replacement, Hx Vascular Surgery - removal of DVTs in legs, IVC filter placed - Immunizations Immunizations up to date: Yes Hx Diphtheria, Pertussis, Tetanus Vaccination: Yes Physical Exam - Vital signs Vitals: Temp Pulse Resp BP Pulse Ox 98.0 F 71 18 176/83 H 100 08/21/20 16:40 08/21/20 16:40 08/21/20 16:40 08/21/20 16:40 08/21/20 16:40 Course - Vital Signs Vital signs: Temp Pulse Resp BP Pulse Ox 98.0 F 71 18 176/83 H 100 08/21/20 16:40 08/21/20 16:40 08/21/20 16:40 08/21/20 16:40 08/21/20 16:40 - Laboratory Laboratory results interpreted by me: 08/21/20 16:40 Urine Protein >=500 H Urine Blood LARGE H Ur Leukocyte Esterase LARGE H Doctor's Discharge - Discharge Referrals: STEVEN VILLALOBOS MD [Primary Care Provider] - Follow up as needed
--- NOTE | 2020-08-21 19:44 | RADIOLOGY REPORT (SQ) ---
EXAM DESCRIPTION: CHEST 2 VIEWS IMAGES COMPLETED DATE/TIME: 08/21/2020 7:24 pm REASON FOR STUDY: cough COMPARISON: 07/04/2020 EXAM PARAMETERS: NUMBER OF VIEWS: two views TECHNIQUE: Digital Frontal and Lateral radiographic views of the chest acquired. RADIATION DOSE: NA LIMITATIONS: none FINDINGS: LUNGS AND PLEURA: Re- demonstration of a small right-sided pleural effusion. No focal con solidation. No pneumothorax. MEDIASTINUM AND HILAR STRUCTURES: No masses or contour abnormalities. HEART AND VASCULAR STRUCTURES: Heart normal size. No evidence for failure. BONES: No acute findings. HARDWARE: None in the chest. OTHER: No other significant finding. IMPRESSION: Stable radiographic appearance of the chest. No evidence of acute cardiopulmonary abnor mality. TECHNICAL DOCUMENTATION: JOB ID: [id number] 2010 [employer]- All Rights Reserved Reading location - IP/workstation name: [email or web address]
[2020-08-21 20:01] LABS: ABSOLUTE EOSINOPHILS # (AUTO) 0.1 10^3/uL (0.0-0.6); ABSOLUTE MONOCYTES (AUTO) 0.4 10^3/uL (0.1-1.4); ABSOLUTE NEUT (AUTO) 2.8 10^3/uL (1.7-8.2); BASOPHILS % (AUTO) 0.2 % (0-2); EOSINOPHILS % (AUTO) 2.8 % (0-6); HEMATOCRIT 31.3 % (37.9-51.0); HEMOGLOBIN 10.8 g/dL (13.5-17.0); LYMPHOCYTES % (AUTO) 22.1 % (13-45); MEAN CORPUSCULAR HEMOGLOBIN 30.9 pg (27.0-33.4); MEAN CORPUSCULAR HGB CONC 34.3 g/dL (32.0-36.0); MEAN CORPUSCULAR VOLUME 90 fl (80-97); MONOCYTES % (AUTO) 9.8 % (3-13); RED BLOOD COUNT 3.48 10^6/uL (4.35-5.55); RED CELL DISTRIBUTION WIDTH 18.2 % (11.5-14.0); SEGMENTED NEUTROPHILS % (AUTO) 65.1 % (42-78); TOTAL CELLS COUNTED % (AUTO) 100 %; WHITE BLOOD COUNT 4.3 10^3/uL (4.0-10.5)
[2020-08-21 20:12] LABS: ALBUMIN 2.4 g/dL (3.5-5.0); ALKALINE PHOSPHATASE 101 U/L (38-126); ASPARTATE AMINO TRANSFERASE 44 U/L (17-59); BILIRUBIN,DIRECT 0.1 mg/dL (0.0-0.4); BILIRUBIN,TOTAL 0.8 mg/dL (0.2-1.3); BLOOD UREA NITROGEN 17 mg/dL (7-20); CALCIUM 8.4 mg/dL (8.4-10.2); CARBON DIOXIDE 24 mmol/L (22-30); GLUCOSE 94 mg/dL (75-110); POTASSIUM 3.9 mmol/L (3.6-5.0); TOTAL PROTEIN 5.4 g/dL (6.3-8.2)
[2020-08-21 20:17] LABS: CHLORIDE 112 mmol/L (98-107)
[2020-08-21 20:18] LABS: ANION GAP 3 (5-19)
[2020-08-21 20:23] LABS: PLATELET COUNT 58 10^3/uL (150-450)
[2020-08-21] MEDS ORDERED: MORPHINE SULFATE 10 MG/ML INJ IM ONE (20:40)
[2020-08-21] MEDS ORDERED: HYDROCODONE/ACETAMINOPHEN 5-325 MG (6 TAB/ER DISP) PO PRN (20:41)
[2020-08-21] MEDS ORDERED: ONDANSETRON 4 MG TAB.RAPDIS PO ONE (20:41)
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
[2020-08-21 21:43] VITALS: BP 163/96
== END 2020-08-21 21:48 | disposition home or self-care (01) ==
LOC: ER 16:19
DX: N20.1 Calculus of ureter (principal); R31.0 Gross hematuria; R11.0 Nausea; M62.830 Muscle spasm of back; M54.5 Low back pain; G89.29 Other chronic pain; R60.0 Localized edema; D69.6 Thrombocytopenia, unspecified; F43.10 Post-traumatic stress disorder, unspecified; R45.851 Suicidal ideations; F17.200 Nicotine dependence, unspecified, uncomplicated; I10 Essential (primary) hypertension; Z79.899 Other long term (current) drug therapy; Z87.442 Personal history of urinary calculi; Z87.19 Personal history of other diseases of the digestive system; Z90.49 Acquired absence of other specified parts of digestive tract; Z88.1 Allergy status to other antibiotic agents
CPT/HCPCS: 99284; 96372; 36415; 87086; 85025; 87088; 80053; 81001; 87186; 71046; A9270 ×2; J2270; S0119

== ENCOUNTER 2020-09-03 01:43 | Emergency (ER) | payer MEDICARE ==
[2020-09-03 03:06] LABS: APPEARANCE,URINE SLIGHTLY-CLOUDY; BILIRUBIN,URINE NEGATIVE (NEGATIVE); COLOR,URINE AMBER; GLUCOSE, URINE NEGATIVE (NEGATIVE); KETONES,URINE NEGATIVE (NEGATIVE); LEUKOCYTE ESTERASE,URINE MODERATE (NEGATIVE); NITRITE,URINE NEGATIVE (NEGATIVE); PROTEIN,URINE >=500 mg/dL (NEGATIVE); URINE SPECIFIC GRAVITY 1.016; UROBILINOGEN,URINE NEGATIVE mg/dL (<2.0)
[2020-09-03 03:34] LABS: ABSOLUTE EOSINOPHILS # (AUTO) 0.1 10^3/uL (0.0-0.6); ABSOLUTE LYMPHOCYTES (AUTO) 1.1 10^3/uL (0.5-4.7); ABSOLUTE MONOCYTES (AUTO) 0.5 10^3/uL (0.1-1.4); ABSOLUTE NEUT (AUTO) 3.5 10^3/uL (1.7-8.2); BASOPHILS % (AUTO) 0.3 % (0-2); EOSINOPHILS % (AUTO) 2.1 % (0-6); HEMATOCRIT 30.3 % (37.9-51.0); HEMOGLOBIN 10.4 g/dL (13.5-17.0); LYMPHOCYTES % (AUTO) 21.4 % (13-45); MEAN CORPUSCULAR HEMOGLOBIN 30.7 pg (27.0-33.4); MEAN CORPUSCULAR HGB CONC 34.2 g/dL (32.0-36.0); MEAN CORPUSCULAR VOLUME 90 fl (80-97); MONOCYTES % (AUTO) 9.9 % (3-13); RED BLOOD COUNT 3.37 10^6/uL (4.35-5.55); RED CELL DISTRIBUTION WIDTH 18.2 % (11.5-14.0); SEGMENTED NEUTROPHILS % (AUTO) 66.3 % (42-78); TOTAL CELLS COUNTED % (AUTO) 100 %; WHITE BLOOD COUNT 5.3 10^3/uL (4.0-10.5)
[2020-09-03 03:56] LABS: ALBUMIN 2.4 g/dL (3.5-5.0); ALKALINE PHOSPHATASE 100 U/L (38-126); ASPARTATE AMINO TRANSFERASE 52 U/L (17-59); BILIRUBIN,DIRECT 0.2 mg/dL (0.0-0.4); BLOOD UREA NITROGEN 14 mg/dL (7-20); CALCIUM 8.3 mg/dL (8.4-10.2); CARBON DIOXIDE 27 mmol/L (22-30); CHLORIDE 110 mmol/L (98-107); GLUCOSE 96 mg/dL (75-110); POTASSIUM 4.1 mmol/L (3.6-5.0); TOTAL PROTEIN 5.2 g/dL (6.3-8.2)
[2020-09-03 04:08] LABS: PLATELET COUNT 55 10^3/uL (150-450)
[2020-09-03 04:28] LABS: ANION GAP 0 (5-19)
[2020-09-03] MEDS ORDERED: HYDROMORPHONE HCL INJ/PF 2 MG/ML AMPULE IM ONE (06:41)
[2020-09-03] MEDS ORDERED: PROMETHAZINE HCL INJ 25 MG/1 ML VIAL IM ONE (06:42)
[2020-09-03] MEDS ORDERED: MORPHINE SULFATE 10 MG/ML INJ IM ONE (06:57)
[2020-09-03] MEDS ORDERED: MORPHINE SULFATE 10 MG/ML INJ IV ONE (07:03)
--- NOTE | 2020-09-03 08:24 | RADIOLOGY REPORT (SQ) ---
EXAM DESCRIPTION: KUB/ABDOMEN (SINGLE VIEW) IMAGES COMPLETED DATE/TIME: 09/03/2020 8:00 am REASON FOR STUDY: chromic kidney stones/ bilat flank pain/hematuria COMPARISON: None. NUMBER OF VIEWS: One view. TECHNIQUE: AP supine views of the abdomen were obtained LIMITATIONS: None. FINDINGS: BOWEL GAS PATTERN: No dilated loops of bowel. CALCIFICATIONS: 10 mm calculus projecting within the inferior portion of the right renal fossa. SOFT TISSUES: No acute gross abnormality. HARDWARE: Cholecystectomy clips and left-sided double-J ureteral stent. BONES: No acute abnormality. OTHER: No other findings. IMPRESSION: 1. Nonobstructive bowel gas pattern. 2. 10 mm calculus projecting within the inferior portion of the right renal fossa. 3. Left-sided double-J ureteral stent. TECHNICAL DOCUMENTATION: JOB ID: [id number] 2010 [employer]- All Rights Reserved Reading location - IP/workstation name: [email or web address]
--- NOTE | 2020-09-03 08:54 | ER Document Report ---
Entered by MARIA A LOPES SCRIBE 09/03/20 0640 Acting as scribe for:DIVYA ELMORE MD ED GI/ - General Chief Complaint: Flank Pain Stated Complaint: ABDOMINAL PAIN Primary Care Provider: STEVEN VILLALOBOS MD [Primary Care Provider] - Follow up as needed Mode of Arrival: Ambulatory Information source: Patient Notes: This 59 year old male patient with a history of chronic back pain, cirrhosis, hepatitis C, and kidney stones with a left ureteral stent presents to the ED today with complaints of bilateral flank pain that started x2-3 months ago. Patient states that he was seen by Dr. Ruano at [facility] last week and was told that "nothing can be done" until 09/24/20. He reports associated hematuria and abdominal distension. Review of the patient's external pharmacy records reveal that he was prescribed a x30 days supply of 10 mg Oxycodone Immediate Release tablets for chronic back pain on 08/14; patient states that he has not been taking these because "they don't help." TRAVEL OUTSIDE OF THE [place] IN LAST 30 DAYS: No - Related Data Allergies/Adverse Reactions: erythromycin base Allergy (Verified 08/21/20 18:26) hydromorphone [From Dilaudid] Adverse Reaction (Verified 08/21/20 18:26) palpations ketorolac [From Toradol] Adverse Reaction (Verified 08/21/20 18:26) Past Medical History - General Information source: Patient, [facility] Records - Social History Smoking Status: Current Every Day Smoker Smoking Education Provided: No Family History: Reviewed & Not Pertinent Patient has suicidal ideation: No Patient has homicidal ideation: No - Past Medical History Cardiac Medical History: Reports: Hx DVT, Hx Hypercholesterolemia, Hx Hypertension Neurological Medical History: Reports: Hx Cerebrovascular Accident - TIA Renal/ Medical History: Reports: Hx Kidney Stones GI Medical History: Reports: Hx Cirrhosis, Hx Hepatitis - History of hepatitis C. He has had treatment. Musculoskeletal Medical History: Reports Hx Arthritis Psychiatric Medical History: Reports: Hx Post Traumatic Stress Disorder Infectious Medical History: Reports: Hx Hepatitis - History of hepatitis C. He has had treatment. Past Surgical History: Reports: Hx Appendectomy, Hx Cholecystectomy, Hx Herniorrhaphy, Hx Kidney (Renal Surgery) - kidney stones, bilateral ureteral stents on 02/08/2019, right stent removal, Hx Orthopedic Surgery - Has had cervical spine surgery, right Knee Replacement, Hx Vascular Surgery - removal of DVTs in legs, IVC filter placed - Immunizations Immunizations up to date: Yes Hx Diphtheria, Pertussis, Tetanus Vaccination: Yes Review of Systems - Review of Systems Constitutional: No symptoms reported EENT: No symptoms reported Cardiovascular: No symptoms reported Respiratory: No symptoms reported Gastrointestinal: See HPI Genitourinary: See HPI Male Genitourinary: No symptoms reported Musculoskeletal: No symptoms reported Skin: No symptoms reported Hematologic/Lymphatic: No symptoms reported Neurological/Psychological: No symptoms reported -: Yes All other systems reviewed and negative Physical Exam - Vital signs Vitals: Temp Pulse Resp BP Pulse Ox 98.0 F 80 18 173/74 H 99 09/03/20 01:55 09/03/20 01:55 09/03/20 01:55 09/03/20 01:55 09/03/20 01:55 - General General appearance: Alert In distress: None - HEENT Head: Normocephalic, Atraumatic Eyes: Normal Pupils: PERRL - Respiratory Respiratory status: No respiratory distress Chest status: Nontender Breath sounds: Normal Chest palpation: Normal - Cardiovascular Rhythm: Regular Heart sounds: Normal auscultation Murmur: No Friction rub: No Gallop: None auscultated - Abdominal Inspection: Obese Distension: Distended Bowel sounds: Normal Tenderness: Nontender - Abdomen soft Organomegaly: No organomegaly - Back Back: CVA tenderness - Bilateral CVA tenderness to palpation - Extremities General upper extremity: Normal inspection General lower extremity: Normal inspection. No: Edema - Neurological Neuro grossly intact: Yes Orientation: AAOx4 Wilner Coma Scale Eye Opening: Spontaneous [place] Coma Scale Verbal: Oriented Wilner Coma Scale Motor: Obeys Commands [place] Coma Scale Total: 15 - Psychological Associated symptoms: Normal affect, Normal mood - Skin Skin Temperature: Warm Skin Moisture: Dry Skin Color: Normal Course - Re-evaluation Re-evalutation: 09/03/20 08:50 Patient states his pain is improved after IV medications of morphine. - Vital Signs Vital signs: Temp Pulse Resp BP Pulse Ox 98.0 F 80 18 173/74 H 99 09/03/20 01:55 09/03/20 01:55 09/03/20 01:55 09/03/20 01:55 09/03/20 01:55 09/03/20 08:50 Vital signs show blood pressure 173/74. - Laboratory Result Diagrams: 09/03/20 03:19 09/03/20 03:19 Laboratory results interpreted by me: 09/03/20 09/03/20 09/03/20 02:24 03:19 03:19 RBC 3.37 L Hgb 10.4 L Hct 30.3 L RDW 18.2 H Plt Count 55 L Chloride 110 H Anion Gap 0 L Calcium 8.3 L Total Protein 5.2 L Albumin 2.4 L Urine Protein >=500 H Urine Blood LARGE H Ur Leukocyte Esterase MODERATE H 09/03/20 08:51 KUB X-Ray 09/03/20 06:43 IMPRESSION: 1. Nonobstructive bowel gas pattern. 2. 10 mm calculus projecting within the inferior portion of the right renal fossa. 3. Left-sided double-J ureteral stent. Patient has a large amount of blood noted and urinalysis and moderate leukocyte esterase. Patient does not show signs of fever chills nausea vomiting to suggest that there is an overwhelming significant urinary tract infection. Patient has a chronic indwelling ureteral stent and known kidney stones that he has not passed in several months. Patient is followed by Dr. Ruano urologist at [facility]. - Diagnostic Test Radiology reviewed: Image reviewed, Reports reviewed Radiology results interpreted by me: 09/03/20 08:52 KUB X-Ray 09/03/20 06:43 IMPRESSION: 1. Nonobstructive bowel gas pattern. 2. 10 mm calculus projecting within the inferior portion of the right renal fossa. 3. Left-sided double-J ureteral stent. KUB as reported left-sided double-J ureteral stent and a 10 mm calculus over the inferior portion of the right renal fossa. Nonobstructive bowel gas pattern. Discharge - Discharge Clinical Impression: Kidney stones Condition: Stable Disposition: HOME, SELF-CARE Additional Instructions: Kidney Stone You are passing or have passed a kidney stone. These stones are usually due to increased calcium or uric acid concentrations in your urine. Stones within the kidney itself are not painful. The pain occurs as the stone leaves the kidney to pass down the long tube, called the ureter, leading to the bladder. If the stone is small, it will usually pass by itself. Most patients can pass the stone at home. You will usually receive medications for pain, nausea or vomiting, and sometimes a medication to assist in passing the kidney stone. However, if the pain is very severe or if vomiting prevents you from taking oral pain medications, you may need to return for further treatment. Drink three or four quarts of fluids per day. You will be given pain medication (if needed) and urine strainers. Strain all your urine to see if the stone passes. If your doctor has asked you to bring the stone in for analysis, return with the stone once it has passed. Return if pain or vomiting become severe, if you develop a high fever, if you are unable to pass your urine, or if other unusual symptoms occur. Referrals: STEVEN VILLALOBOS MD [Primary Care Provider] - Follow up as needed JOSELYN RUANO MD [NO LOCAL MD] - Follow up in 3-5 days I personally performed the services described in the documentation, reviewed and edited the documentation which was dictated to the scribe in my presence, and it accurately records my words and actions.
[2020-09-03 09:03] VITALS: BP 167/85
== END 2020-09-03 09:01 | disposition home or self-care (01) ==
LOC: ER 01:43
DX: N20.0 Calculus of kidney (principal); R10.9 Unspecified abdominal pain; R31.9 Hematuria, unspecified; R14.0 Abdominal distension (gaseous); Z79.899 Other long term (current) drug therapy; G89.29 Other chronic pain; F17.200 Nicotine dependence, unspecified, uncomplicated; I10 Essential (primary) hypertension
CPT/HCPCS: 99284; 96372; 96374; 36415; 83690; 85025; 80053; 81001; 74018; J2270; J2550

== ENCOUNTER 2020-09-27 14:39 | Emergency (ER) | payer MEDICARE ==
[2020-09-27 14:49] VITALS: BP 147/75
--- NOTE | 2020-09-27 15:07 | ER Document Report ---
ED Medical Screen (RME) - General Chief Complaint: Leg Swelling Stated Complaint: RIGHT LEG PAIN,SWELLING Time Seen by Provider: 09/27/20 15:03 Primary Care Provider: STEVEN VILLALOBOS MD [Primary Care Provider] - Follow up as needed Notes: Patient presents complaining of right lower extremity pain and swelling for the past 3 to 4 weeks. Patient reports having an outpatient elevated D-dimer test and was supposed to have a Doppler study although missed his appointment. Patient reports mild cough with some shortness of breath. Patient does have a previous history of hypertension, PTSD and DVT. Patient does have a IVC filter has been placed. I have greeted and performed a rapid initial assessment of this patient. A comprehensive ED assessment and evaluation of the patient, analysis of test results and completion of the medical decision making process will be conducted by additional ED providers. TRAVEL OUTSIDE OF THE [place] IN LAST 30 DAYS: No - Related Data Allergies/Adverse Reactions: erythromycin base Allergy (Verified 08/21/20 18:26) hydromorphone [From Dilaudid] Adverse Reaction (Verified 08/21/20 18:26) palpations ketorolac [From Toradol] Adverse Reaction (Verified 08/21/20 18:26) Past Medical History - Past Medical History Cardiac Medical History: Reports: Hx DVT, Hx Hypercholesterolemia, Hx Hypertension Neurological Medical History: Reports: Hx Cerebrovascular Accident - TIA Endocrine Medical History: Denies: Hx Diabetes Mellitus Type 2 Renal/ Medical History: Reports: Hx Kidney Stones. Denies: Hx Peritoneal Dialysis GI Medical History: Reports: Hx Cirrhosis, Hx Hepatitis - History of hepatitis C. He has had treatment. Musculoskeltal Medical History: Reports Hx Arthritis Psychiatric Medical History: Reports: Hx Post Traumatic Stress Disorder Infectious Medical History: Reports: Hx Hepatitis - History of hepatitis C. He has had treatment. Past Surgical History: Reports: Hx Abdominal Surgery - hernia, Hx Appendectomy, Hx Cholecystectomy, Hx Herniorrhaphy, Hx Kidney (Renal Surgery) - kidney stones, bilateral ureteral stents on 02/08/2019, right stent removal, Hx Orthopedic Surgery - Has had cervical spine surgery, right Knee Replacement, Hx Vascular Surgery - removal of DVTs in legs, IVC filter placed - Immunizations Immunizations up to date: Yes Hx Diphtheria, Pertussis, Tetanus Vaccination: Yes Physical Exam - Vital signs Vitals: Temp Pulse Resp BP Pulse Ox 98.1 F 73 18 147/75 H 100 12/31/20 14:47 09/27/20 14:47 09/27/20 14:47 09/27/20 14:47 09/27/20 14:47 - General General appearance: Alert Notes: Right lower extremity tenderness with swelling Course - Vital Signs Vital signs: Temp Pulse Resp BP Pulse Ox 98.1 F 73 18 147/75 H 100 09/27/20 14:47 09/27/20 14:47 09/27/20 14:47 09/27/20 14:47 09/27/20 14:47 Doctor's Discharge - Discharge Referrals: STEVEN VILLALOBOS MD [Primary Care Provider] - Follow up as needed
[2020-09-27 15:38] LABS: ABSOLUTE EOSINOPHILS # (AUTO) 0.3 10^3/uL (0.0-0.6); ABSOLUTE LYMPHOCYTES (AUTO) 1.8 10^3/uL (0.5-4.7); ABSOLUTE NEUT (AUTO) 5.3 10^3/uL (1.7-8.2); BASOPHILS % (AUTO) 0.3 % (0-2); EOSINOPHILS % (AUTO) 3.3 % (0-6); HEMATOCRIT 31.1 % (37.9-51.0); HEMOGLOBIN 10.9 g/dL (13.5-17.0); LYMPHOCYTES % (AUTO) 21.7 % (13-45); MEAN CORPUSCULAR HEMOGLOBIN 31.4 pg (27.0-33.4); MEAN CORPUSCULAR HGB CONC 35.1 g/dL (32.0-36.0); MEAN CORPUSCULAR VOLUME 89 fl (80-97); MONOCYTES % (AUTO) 11.9 % (3-13); RED BLOOD COUNT 3.47 10^6/uL (4.35-5.55); RED CELL DISTRIBUTION WIDTH 16.9 % (11.5-14.0); SEGMENTED NEUTROPHILS % (AUTO) 62.8 % (42-78); TOTAL CELLS COUNTED % (AUTO) 100 %; WHITE BLOOD COUNT 8.4 10^3/uL (4.0-10.5)
[2020-09-27 15:39] LABS: INTERNATIONAL RATION (INR) 1.27; PROTHROMBIN TIME 16.1 SEC (11.4-15.4)
[2020-09-27 15:40] LABS: PARTIAL THROMBOPLASTIN TIME 30.4 SEC (23.5-35.8)
[2020-09-27 15:57] LABS: ALBUMIN 2.1 g/dL (3.5-5.0); ALKALINE PHOSPHATASE 84 U/L (38-126); ASPARTATE AMINO TRANSFERASE 70 U/L (17-59); BILIRUBIN,DIRECT 0.2 mg/dL (0.0-0.4); BILIRUBIN,TOTAL 1.1 mg/dL (0.2-1.3); BLOOD UREA NITROGEN 21 mg/dL (7-20); CALCIUM 8.1 mg/dL (8.4-10.2); CARBON DIOXIDE 29 mmol/L (22-30); GLUCOSE 91 mg/dL (75-110); POTASSIUM 4.3 mmol/L (3.6-5.0)
[2020-09-27 16:00] LABS: PLATELET COUNT 59 10^3/uL (150-450)
[2020-09-27 16:02] LABS: CHLORIDE 105 mmol/L (98-107)
--- NOTE | 2020-09-27 16:06 | RADIOLOGY REPORT (SQ) ---
EXAM DESCRIPTION: CHEST SINGLE VIEW IMAGES COMPLETED DATE/TIME: 09/27/2020 3:54 pm REASON FOR STUDY: sob COMPARISON: 08/21/2020 EXAM PARAMETERS: NUMBER OF VIEWS: One view. TECHNIQUE: Single frontal radiographic view of the chest acquired. RADIATION DOSE: NA LIMITATIONS: None. FINDINGS: LUNGS AND PLEURA: No opacities, masses or pneumothorax. No pleural effusion. MEDIASTINUM AND HILAR STRUCTURES: No masses. Contour normal. HEART AND VASCULAR STRUCTURES: Heart normal in size. Normal vasculature. BONES: No acute findings. HARDWARE: None in the chest. OTHER: No other significant finding. IMPRESSION: NO ACUTE RADIOGRAPHIC FINDING IN THE CHEST. TECHNICAL DOCUMENTATION: JOB ID: [id number] 2010 [employer]- All Rights Reserved Reading location - IP/workstation name: [email or web address]
[2020-09-27 16:07] LABS: ANION GAP 1 (5-19)
--- NOTE | 2020-09-27 17:36 | RADIOLOGY REPORT (SQ) ---
EXAM DESCRIPTION: VENOUS UNILATERAL LOWER IMAGES COMPLETED DATE/TIME: 09/27/2020 5:23 pm REASON FOR STUDY: RLE pain, swelling COMPARISON: None. TECHNIQUE: Dynamic and static sampson scale and color images acquired of the right leg venous system. S elected spectral images acquired with additional compression and augmentation maneuvers. The contrala teral common femoral vein and saphenofemoral junction were also imaged. Images stored on PACS. LIMITATIONS: None. FINDINGS: COMMON FEMORAL: Normal phasicity, compression and augmentation. No visualized echogenic ma terial on sampson scale. No defects on color images. FEMORAL: Normal compression and augmentation. No visualized echogenic material on sampson scale. No defe cts on color images. POPLITEAL: Normal compression, augmentation. No visualized echogenic material on sampson scale. No defec ts on color images. CALF VESSELS: Normal compression, augmentation. No visualized echogenic material on sampson scale. No de fects on color images. GSV and SSV: Normal compression, augmentation. No visualized echogenic material on sampson scale. No def ects on color images. ANY DEEP VENOUS INSUFFICIENCY: Not evaluated. ANY EVIDENCE OF POPLITEAL CYST: No. OTHER: No other significant finding. CONTRALATERAL COMMON FEMORAL VEIN AND SAPHENOFEMORAL JUNCTION: Normal phasicity, compression and augmentation. No visualized echogenic material on sampson scale. No de fects on color images. IMPRESSION: NO EVIDENCE DVT OR SVT IN THE RIGHT LEG. TECHNICAL DOCUMENTATION: JOB ID: [id number] 2010 [employer]- All Rights Reserved Reading location - IP/workstation name: [email or web address]
== END 2020-09-27 23:57 | disposition left against medical advice (07) ==
LOC: ER 14:39
DX: M79.604 Pain in right leg (principal); M79.89 Other specified soft tissue disorders; R05 Cough; R06.02 Shortness of breath; I10 Essential (primary) hypertension; Z86.718 Personal history of other venous thrombosis and embolism; Z95.828 Presence of other vascular implants and grafts; Z88.1 Allergy status to other antibiotic agents; Z53.20 Procedure and treatment not carried out because of patient's decision for unspecified reasons
CPT/HCPCS: 36415; 71045; 80053; 83735; 85025; 85610; 85730; 93971; 99281

== ENCOUNTER 2020-10-07 06:52 | Emergency (ER) | payer MEDICARE ==
[2020-10-07 07:47] LABS: APPEARANCE,URINE CLOUDY; BILIRUBIN,URINE NEGATIVE (NEGATIVE); COLOR,URINE RED; GLUCOSE, URINE NEGATIVE (NEGATIVE); KETONES,URINE NEGATIVE (NEGATIVE); LEUKOCYTE ESTERASE,URINE MODERATE (NEGATIVE); NITRITE,URINE NEGATIVE (NEGATIVE); PROTEIN,URINE >=500 mg/dL (NEGATIVE); URINE SPECIFIC GRAVITY 1.019
[2020-10-07 09:09] LABS: ABSOLUTE EOSINOPHILS # (AUTO) 0.2 10^3/uL (0.0-0.6); ABSOLUTE LYMPHOCYTES (AUTO) 1.6 10^3/uL (0.5-4.7); ABSOLUTE MONOCYTES (AUTO) 0.6 10^3/uL (0.1-1.4); ABSOLUTE NEUT (AUTO) 3.4 10^3/uL (1.7-8.2); BASOPHILS % (AUTO) 0.6 % (0-2); EOSINOPHILS % (AUTO) 3.8 % (0-6); HEMOGLOBIN 11.7 g/dL (13.5-17.0); LYMPHOCYTES % (AUTO) 26.9 % (13-45); MEAN CORPUSCULAR HGB CONC 34.2 g/dL (32.0-36.0); MEAN CORPUSCULAR VOLUME 90 fl (80-97); MONOCYTES % (AUTO) 10.8 % (3-13); RED BLOOD COUNT 3.77 10^6/uL (4.35-5.55); RED CELL DISTRIBUTION WIDTH 16.5 % (11.5-14.0); SEGMENTED NEUTROPHILS % (AUTO) 57.9 % (42-78); TOTAL CELLS COUNTED % (AUTO) 100 %; WHITE BLOOD COUNT 5.8 10^3/uL (4.0-10.5)
[2020-10-07] MEDS ORDERED: NORMAL SALINE 1000 ML 1,000 ML IV ONE (09:13)
[2020-10-07] MEDS ORDERED: CEFTRIAXONE INJ 1000 MG VIAL IV ONE (09:13)
[2020-10-07] MEDS ORDERED: MORPHINE SULFATE 10 MG/ML INJ IV ONE (09:17)
--- NOTE | 2020-10-07 09:23 | ER Document Report ---
ED GI/ - General Chief Complaint: Possible Kidney Stone Stated Complaint: RIGHT SIDED FLANK PAIN Time Seen by Provider: 10/07/20 08:44 Primary Care Provider: [facility] [Provider Group] - Follow up in 3-5 days STEVEN VILLALOBOS MD [Primary Care Provider] - Follow up in 3-5 days Notes: Patient is a 59-year-old male with known kidney stones who presents to the emergency department with a chief complaint of right flank pain, blood in his urine, and dysuria. Patient states that he has had on and off hematuria, but states that the burning started recently. Patient has history of urinary tract infections in the past. He does have stents placed. States that he went to his urologist, who wanted to, "take out his stents." Patient did not want to have his stents taken out, because he has "bleeding problems." Patient states that his pain comes and goes. TRAVEL OUTSIDE OF THE [place] IN LAST 30 DAYS: No - Related Data Allergies/Adverse Reactions: erythromycin base Allergy (Verified 08/21/20 18:26) hydromorphone [From Dilaudid] Adverse Reaction (Verified 08/21/20 18:26) palpations ketorolac [From Toradol] Adverse Reaction (Verified 08/21/20 18:26) Past Medical History - General Information source: Patient - Social History Smoking Status: Current Every Day Smoker Family History: Reviewed & Not Pertinent - Past Medical History Cardiac Medical History: Reports: Hx DVT, Hx Hypercholesterolemia, Hx Hypertension Neurological Medical History: Reports: Hx Cerebrovascular Accident - TIA Endocrine Medical History: Denies: Hx Diabetes Mellitus Type 2 Renal/ Medical History: Reports: Hx Kidney Stones. Denies: Hx Peritoneal Dialysis GI Medical History: Reports: Hx Cirrhosis, Hx Hepatitis - History of hepatitis C. He has had treatment. Musculoskeletal Medical History: Reports Hx Arthritis Psychiatric Medical History: Reports: Hx Post Traumatic Stress Disorder Infectious Medical History: Reports: Hx Hepatitis - History of hepatitis C. He has had treatment. Past Surgical History: Reports: Hx Abdominal Surgery - hernia, Hx Appendectomy, Hx Cholecystectomy, Hx Herniorrhaphy, Hx Kidney (Renal Surgery) - kidney stones, bilateral ureteral stents on 02/08/2019, right stent removal, Hx Orthopedic Surgery - Has had cervical spine surgery, right Knee Replacement, Hx Vascular Surgery - removal of DVTs in legs, IVC filter placed - Immunizations Immunizations up to date: Yes Hx Diphtheria, Pertussis, Tetanus Vaccination: Yes Review of Systems - Review of Systems Notes: REVIEW OF SYSTEMS: CONSTITUTIONAL : Denies recent illness. Denies recent unintentional weight loss. Denies fever, chills, or sweats. EENT: Denies eye, ear, throat, or mouth pain, discharge, or symptoms. Denies nasal or sinus congestion. CARDIOVASCULAR: Denies chest pain. RESPIRATORY: Denies shortness of breath, cough, congestion, difficulty breathing, or wheezing. GASTROINTESTINAL: Denies nausea, vomiting, and diarrhea. Denies abdominal pain. Denies constipation. GENITOURINARY: Denies difficulty urinating, burning, blood in urine, urgency or frequency. MUSCULOSKELETAL: See HPI. Denies joint pain or swelling. SKIN: Denies rash, itchiness, or lesions HEMATOLOGIC : Denies easy bruising or bleeding. LYMPHATIC: Denies swollen, painful, enlarged glands. NEUROLOGICAL: Denies no numbness or tingling denies weakness. Denies headache. Denies altered mental status. Denies alteration in speech. PSYCHIATRIC: Denies stress, anxiety, alteration in sleep patterns, or depression. All other systems reviewed and negative. Physical Exam - Vital signs Vitals: Temp Pulse Resp BP Pulse Ox 97.3 F 72 18 184/92 H 100 10/07/20 06:57 10/07/20 06:57 10/07/20 06:57 10/07/20 06:57 10/07/20 06:57 - Notes Notes: PHYSICAL EXAMINATION: GENERAL: Appears well, healthy, well-nourished, no acute distress. HEAD: Normocephalic, atraumatic. EYES: PERRL, conjunctiva normal, all extraocular movements intact, sclera nonicteric ENT: Moist mucous membranes. NECK: Supple, no noticeable swelling, redness, rash. Normal range of motion. LUNGS: Equal breath sounds bilaterally and clear to auscultation. No wheezes rales or rhonchi. CARDIOVASCULAR: S1-S2, regular rate, regular rhythm. Radial pulses 2+, normal. ABDOMEN: Normoactive bowel sounds. Soft, nontender, no guarding, no rebound tenderness, and no masses palpated. EXTREMITIES: Normal strength and range of motion, no pitting or edema. No cyanosis. NEUROLOGICAL: Moves all extremities upon command. Strength 5/5 in all extremit ies. PSYCH: Normal mood, normal affect. SKIN: Warm, dry. No rash, lesions, ulcerations noted. Normal skin turgor. BACK: Right CVA tenderness. Course - Re-evaluation Re-evalutation: 10/07/20 10:35 Hematology does not show a leukocytosis. Hemoglobin is 11.7, which is better than his normal, which is usually 10.0. Chemistries are unremarkable. Lipase is elevated and patient received IV fluids and pain medication for this. Patient is currently on pain medicine. Patient has moderate mild of leukocytes in his urine. He also has blood in his urine. X-ray does not show any change in his renal calculi, which is in his kidney. We will place the patient on nitrofurantoin, as his last urine culture showed that both organisms they were susceptible to this medication. Patient is nontoxic in appearance. Follow-up precautions were given. Verbal discharge instructions were given to the patient. They verbalized understanding. They are stable for discharge. - Vital Signs Vital signs: Temp Pulse Resp BP Pulse Ox 97.6 F 63 18 142/77 H 100 10/07/20 11:02 10/07/20 11:02 10/07/20 06:57 10/07/20 11:02 10/07/20 11:02 - Laboratory Results Result Diagrams: 10/07/20 08:30 10/07/20 08:30 Laboratory Results Interpreted: 10/07/20 10/07/20 10/07/20 06:51 08:30 08:30 RBC 3.77 L Hgb 11.7 L Hct 34.0 L RDW 16.5 H Plt Count 79 L Sodium 136.7 L Chloride 109 H Calcium 8.3 L AST 66 H Total Protein 5.3 L Albumin 2.4 L Lipase 406.8 H Urine Protein >=500 H Urine Blood LARGE H Urine Urobilinogen 4.0 H Ur Leukocyte Esterase MODERATE H Critical Laboratory Results Reviewed: No Critical Results - Radiology Results Critical Radiology Results Reviewed: No Critical Results Discharge - Discharge Clinical Impression: Dysuria Urinary tract infection Qualifiers: Urinary tract infection type: site unspecified Hematuria presence: with hematuria Qualified Code(s): N39.0 - Urinary tract infection, site not specified Condition: Stable Disposition: HOME, SELF-CARE Instructions: Urinary Tract Infection ([facility]) Additional Instructions: Your urine shows findings consistent with a urinary tract infection. Please take all the antibiotics as directed even if your symptoms have improved. Please follow-up with your primary care physician as needed. Return to emergency room if you develop fever >101F, persistent vomiting, become lethargic, have severe pain in your sides, or any other symptoms that are concerning to you. Follow-up with urology tomorrow. Your labs also show evidence of pancreatitis. Pancreatitis Pancreatitis is an inflammation of the pancreas, an organ at the back of your abdomen. The pancreas produces insulin and enzymes that digest your food. Pancreatitis can be caused by gallstones in the bile duct, by alcohol or viruses, or by excess fat or calcium in the blood stream. Occasionally, pancreatitis occurs when a stomach ulcer zuniga through into the pancreas. We try to find the cause of pancreatitis, but some tests can't be done until the pancreas heals. The usual symptoms of pancreatitis are pain in the pit of the stomach that goes straight through to the back, vomiting, and low-grade fever. Severe cases require hospital admission, but many patients with mild pancreatitis do well at home. You will probably need medicine for pain and for vomiting. Sometimes we prescribe medicine to decrease stomach acid secretion and to decrease flow of pancreatic juices. Start with a diet of clear liquids (soda pop, juices). When the pain is decreasing, you can add some simple starches (potato, toast, applesauce). Avoid proteins and fats until you are completely painfree. When you're better, your doctor may suggest treatment to prevent future pancreatitis (such as gallbladder removal). Avoid alcohol forever. Get im mediate treatment for any future episodes. Contact your doctor at once or return here if you have increasing pain, shortness of breath, general swelling, increasing size of the abdomen, continued vomiting, muscle spasms, or other new symptoms. Prescriptions: Nitrofurantoin Macrocrystal [Nitrofurantoin] 100 mg PO Q6H #20 capsule Referrals: STEVEN VILLALOBOS MD [Primary Care Provider] - Follow up in 3-5 days [facility] [Provider Group] - Follow up in 3-5 days
[2020-10-07 09:27] LABS: ALBUMIN 2.4 g/dL (3.5-5.0); ALKALINE PHOSPHATASE 107 U/L (38-126); ASPARTATE AMINO TRANSFERASE 66 U/L (17-59); BILIRUBIN,DIRECT 0.4 mg/dL (0.0-0.4); BILIRUBIN,TOTAL 0.9 mg/dL (0.2-1.3); BLOOD UREA NITROGEN 14 mg/dL (7-20); CALCIUM 8.3 mg/dL (8.4-10.2); CARBON DIOXIDE 28 mmol/L (22-30); CHLORIDE 109 mmol/L (98-107); GLUCOSE 97 mg/dL (75-110); POTASSIUM 3.9 mmol/L (3.6-5.0); TOTAL PROTEIN 5.3 g/dL (6.3-8.2)
[2020-10-07] MEDS ORDERED: CEFTRIAXONE 1 GM/D5W RTU 1 GM/50 ML RTUPB IV ONE (09:29)
[2020-10-07 09:33] LABS: PLATELET COUNT 79 10^3/uL (150-450)
--- NOTE | 2020-10-07 09:43 | RADIOLOGY REPORT (SQ) ---
EXAM DESCRIPTION: KUB/ABDOMEN (SINGLE VIEW) IMAGES COMPLETED DATE/TIME: 10/07/2020 9:30 am REASON FOR STUDY: eval stone? COMPARISON: 09/03/2020 NUMBER OF VIEWS: One view. TECHNIQUE: Supine radiographic image of the abdomen acquired. LIMITATIONS: None. FINDINGS: BOWEL GAS PATTERN: Normal bowel gas pattern. No dilated loops. CALCIFICATIONS: Right renal calculus unchanged. SOFT TISSUES: No gross mass or suggestion of organomegaly. HARDWARE: Left renal stent stable. BONES: No acute fracture. No worrisome bone lesions. OTHER: No other significant finding. IMPRESSION: No change in the appearance of the right renal calculus. Persistent indwelling left-sided ureteral stent. TECHNICAL DOCUMENTATION: JOB ID: [id number] 2010 [employer]- All Rights Reserved Reading location - IP/workstation name: [email or web address]
[2020-10-07 11:13] VITALS: BP 142/77
== END 2020-10-07 11:10 | disposition home or self-care (01) ==
LOC: ER 06:52
DX: N39.0 Urinary tract infection, site not specified (principal); R31.9 Hematuria, unspecified; N20.0 Calculus of kidney; R79.89 Other specified abnormal findings of blood chemistry; I10 Essential (primary) hypertension; Z96.0 Presence of urogenital implants; Z88.1 Allergy status to other antibiotic agents
CPT/HCPCS: 99284; 96361; 96375; 96365; 36415; 83690; 85025; 80053; 81001; 74018; J2270; J0696; J7030

== ENCOUNTER 2020-10-17 03:46 | Emergency (ER) | payer MEDICARE ==
[2020-10-17] MEDS ORDERED: ONDANSETRON HCL INJ/PF 4 MG/2 ML SDV IV ONE ×2 (04:09→11:30)
[2020-10-17 06:39] LABS: ABSOLUTE EOSINOPHILS # (AUTO) 0.2 10^3/uL (0.0-0.6); ABSOLUTE LYMPHOCYTES (AUTO) 1.5 10^3/uL (0.5-4.7); ABSOLUTE MONOCYTES (AUTO) 0.4 10^3/uL (0.1-1.4); ABSOLUTE NEUT (AUTO) 3.6 10^3/uL (1.7-8.2); BASOPHILS % (AUTO) 0.6 % (0-2); EOSINOPHILS % (AUTO) 4.2 % (0-6); HEMATOCRIT 33.6 % (37.9-51.0); HEMOGLOBIN 11.5 g/dL (13.5-17.0); LYMPHOCYTES % (AUTO) 25.7 % (13-45); MEAN CORPUSCULAR HEMOGLOBIN 31.2 pg (27.0-33.4); MEAN CORPUSCULAR HGB CONC 34.4 g/dL (32.0-36.0); MEAN CORPUSCULAR VOLUME 91 fl (80-97); MONOCYTES % (AUTO) 7.5 % (3-13); RED CELL DISTRIBUTION WIDTH 16.4 % (11.5-14.0); TOTAL CELLS COUNTED % (AUTO) 100 %; WHITE BLOOD COUNT 5.8 10^3/uL (4.0-10.5)
[2020-10-17 06:46] LABS: ALBUMIN 2.3 g/dL (3.5-5.0); ALKALINE PHOSPHATASE 100 U/L (38-126); ASPARTATE AMINO TRANSFERASE 60 U/L (17-59); BILIRUBIN,DIRECT 0.2 mg/dL (0.0-0.4); BILIRUBIN,TOTAL 0.8 mg/dL (0.2-1.3); BLOOD UREA NITROGEN 20 mg/dL (7-20); CALCIUM 8.3 mg/dL (8.4-10.2); GLUCOSE 85 mg/dL (75-110); POTASSIUM 4.3 mmol/L (3.6-5.0); TOTAL PROTEIN 5.2 g/dL (6.3-8.2)
[2020-10-17 06:51] LABS: CARBON DIOXIDE 25 mmol/L (22-30); CHLORIDE 113 mmol/L (98-107)
[2020-10-17 06:54] LABS: PLATELET COUNT 65 10^3/uL (150-450)
[2020-10-17 06:57] LABS: APPEARANCE,URINE CLOUDY; BILIRUBIN,URINE NEGATIVE (NEGATIVE); COLOR,URINE RED; GLUCOSE, URINE NEGATIVE (NEGATIVE); KETONES,URINE NEGATIVE (NEGATIVE); LEUKOCYTE ESTERASE,URINE MODERATE (NEGATIVE); NITRITE,URINE NEGATIVE (NEGATIVE); PROTEIN,URINE >=500 mg/dL (NEGATIVE); URINE SPECIFIC GRAVITY 1.024; UROBILINOGEN,URINE NEGATIVE mg/dL (<2.0)
[2020-10-17 07:02] LABS: ANION GAP 0 (5-19)
[2020-10-17] MEDS ORDERED: CEFTRIAXONE 1 GM/D5W RTU 1 GM/50 ML RTUPB IV ONE ×2 (08:40→12:00)
--- NOTE | 2020-10-17 08:41 | ER Document Report ---
ED GI/ - General Chief Complaint: Possible Kidney Stone Stated Complaint: FLANK PAIN, BLOOD IN URINE Time Seen by Provider: 10/17/20 08:36 Primary Care Provider: [facility] [Provider Group] - Follow up in 3-5 days STEVEN VILLALOBOS MD [Primary Care Provider] - Follow up as needed RANDI BRUNO MD [NO LOCAL MD] - Follow up as needed Mode of Arrival: Ambulatory Information source: Patient Notes: Patient reports a history of kidney stones and has had right flank pain. Patient presents complaining of hematuria with right flank pain for the past 2 days. Patient does report some urinary frequency. Patient reports nausea without vomiting. Patient denies any fever. Patient states he does have a ureteral stent and needs it to be removed although has not had this procedure performed as his current urologist wanted to have the stent removed from the office. Patient states that he has a history of low platelets and does not feel that this has been safe to have performed in the office and has been declining to have the stent removed. TRAVEL OUTSIDE OF THE [place] IN LAST 30 DAYS: No - HPI Patient complains to provider of: Flank pain, Hematuria. No: Abdominal pain, Testicular pain, Vomiting Onset: Other - 2 days Timing/Duration: Persistent Quality of pain: Sharp Pain Level: 4 Location: Right flank Associated symptoms: Hematuria, Nausea. denies: Fever, Urinary hesitancy, Urinary frequency, Urinary retention, Urinary urgency, Vomiting Exacerbated by: Denies Relieved by: Denies Similar symptoms previously: Yes Recently seen / treated by doctor: No - Related Data Allergies/Adverse Reactions: erythromycin base Allergy (Verified 10/17/20 04:04) hydromorphone [From Dilaudid] Adverse Reaction (Verified 10/17/20 04:04) palpations ketorolac [From Toradol] Adverse Reaction (Verified 10/17/20 04:04) Home Medications: PERCOCET. ATENOLOL. WATER PILL Past Medical History - General Information source: Patient - Social History Smoking Status: Current Every Day Smoker Frequency of alcohol use: None Drug Abuse: Prescription drugs Occupation: None Lives with: Spouse/Significant other Family History: Reviewed & Not Pertinent - Past Medical History Cardiac Medical History: Reports: Hx DVT, Hx Hypercholesterolemia, Hx Hypertension Neurological Medical History: Reports: Hx Cerebrovascular Accident - TIA Endocrine Medical History: Denies: Hx Diabetes Mellitus Type 2 Renal/ Medical History: Reports: Hx Kidney Stones. Denies: Hx Peritoneal Dialysis GI Medical History: Reports: Hx Cirrhosis, Hx Hepatitis - History of hepatitis C. He has had treatment. Musculoskeletal Medical History: Reports Hx Arthritis Psychiatric Medical History: Reports: Hx Post Traumatic Stress Disorder Infectious Medical History: Reports: Hx Hepatitis - History of hepatitis C. He has had treatment. Past Surgical History: Reports: Hx Abdominal Surgery - hernia, Hx Appendectomy, Hx Cholecystectomy, Hx Herniorrhaphy, Hx Kidney (Renal Surgery) - kidney stones, bilateral ureteral stents on 02/08/2019, right stent removal, Hx Orthopedic Surgery - Has had cervical spine surgery, right Knee Replacement, Hx Vascular Surgery - removal of DVTs in legs, IVC filter placed - Immunizations Immunizations up to date: Yes Hx Diphtheria, Pertussis, Tetanus Vaccination: Yes Review of Systems - Review of Systems Constitutional: No symptoms reported. denies: Fever EENT: No symptoms reported Cardiovascular: No symptoms reported. denies: Chest pain Respiratory: No symptoms reported. denies: Cough, Short of breath Gastrointestinal: Nausea. denies: Abdominal pain, Vomiting Genitourinary: Flank pain, Hematuria. denies: Dysuria Male Genitourinary: No symptoms reported Musculoskeletal: Back pain Skin: No symptoms reported Hematologic/Lymphatic: No symptoms reported Neurological/Psychological: No symptoms reported Physical Exam - Vital signs Vitals: Temp Pulse Resp BP Pulse Ox 97.6 F 67 19 176/81 H 99 10/17/20 03:55 10/17/20 03:55 10/17/20 03:55 10/17/20 03:55 10/17/20 03:55 - Notes Notes: PHYSICAL EXAMINATION: GENERAL: Well-appearing and in no acute distress. HEAD: Atraumatic, normocephalic. EYES: sclera anicteric, conjunctiva are normal. ENT: nares patent. Moist mucous membranes. NECK: Normal range of motion, supple LUNGS: CTAB and equal. No wheezes rales or rhonchi. HEART: Regular rate and rhythm without murmurs ABDOMEN: Soft, nontender, normal bowel sounds, no guarding. EXTREMITIES: Normal range of motion, no pitting edema. No cyanosis. BACK: No midline tenderness, no step-off or deformity. Right CVA tenderness NEUROLOGICAL: Cranial nerves grossly intact. Normal speech. Normal gait. PSYCH: Normal mood, normal affect. SKIN: Warm, Dry, normal turgor, no rashes or lesions noted Course - Re-evaluation Re-evalutation: 10/17/20 12:12 Patient does have what appears to be a punctate calcific density worrisome for possible distal ureteralith on the right side. Patient does have urinalysis wo rrisome for possible UTI. Patient without any fever or leukocytosis. Call placed to [facility] for consultation with urology. 10/17/20 13:00 Consulted again with [facility] who states that Dr. Bruno is presently in a surgical case and will call when out of surgery. 10/17/20 13:[address] Bruno who is on for urology at [facility]. Patient is followed by [facility] urology here in [place]. He reviewed patient's imaging reports as well as lab and vital signs. He does not feel the patient likely has a UTI given the lack of systemic signs without any fever or leukocytosis. Suspect that urinalysis findings are likely result of the left stent that patient has placed. He does recommend having patient present in a timely manner on outpatient basis for stent removal. He does not recommend starting any antibiotics at this time for the urinalysis although does recommend culturing the urine. - Vital Signs Vital signs: Temp Pulse Resp BP Pulse Ox 98.5 F 60 18 154/85 H 100 10/17/20 13:40 10/17/20 13:40 10/17/20 13:40 10/17/20 13:40 10/17/20 13:40 - Laboratory Results Result Diagrams: 10/17/20 05:59 10/17/20 05:59 Laboratory Results Interpreted: 10/17/20 10/17/20 10/17/20 04:13 05:59 05:59 RBC 3.70 L Hgb 11.5 L Hct 33.6 L RDW 16.4 H Plt Count 65 L Chloride 113 H Anion Gap 0 L Calcium 8.3 L AST 60 H Total Protein 5.2 L Albumin 2.3 L Lipase 362.9 H Urine Protein >=500 H Urine Blood LARGE H Ur Leukocyte Esterase MODERATE H 10/17/20 13:18 Labs- All tests 24 hr 10/17/20 10/17/20 10/17/20 04:13 05:59 05:59 WBC 5.8 RBC 3.70 L Hgb 11.5 L Hct 33.6 L MCV 91 MCH 31.2 MCHC 34.4 RDW 16.4 H Plt Count 65 L Lymph % (Auto) 25.7 [place] % (Auto) 7.5 Eos % (Auto) 4.2 Baso % (Auto) 0.6 Absolute Neuts (auto) 3.6 Absolute Lymphs (auto) 1.5 Absolute Monos (auto) 0.4 Absolute Eos (auto) 0.2 Absolute Basos (auto) 0.0 Seg Neutrophils % 62.0 Sodium 138.3 Potassium 4.3 Chloride 113 H Carbon Dioxide 25 Anion Gap 0 L BUN 20 Creatinine 1.03 Est GFR ( Amer) > 60 Est GFR (MDRD) Non-Af > 60 Glucose 85 Calcium 8.3 L Total Bilirubin 0.8 Direct Bilirubin 0.2 Neonat Total Bilirubin Not Reportable Neonat Direct Bilirubin Not Reportable Neonat Indirect Bili Not Reportable AST 60 H ALT 33 Alkaline Phosphatase 100 Total Protein 5.2 L Albumin 2.3 L Lipase 362.9 H Urine Color RED Urine Appearance CLOUDY Urine pH 5.0 Ur Specific [place] 1.024 Urine Protein >=500 H Urine Glucose (UA) NEGATIVE Urine Ketones NEGATIVE Urine Blood LARGE H Urine Nitrite NEGATIVE Urine Bilirubin NEGATIVE Urine Urobilinogen NEGATIVE Ur Leukocyte Esterase MODERATE H Urine WBC (Auto) 148 Urine RBC (Auto) >182 U Hyaline Cast (Auto) 20 Urine Mucus (Auto) FEW Urine Ascorbic Acid NEGATIVE Critical Laboratory Results Reviewed: No Critical Results - Radiology Results Critical Radiology Results Reviewed: No Critical Results Discharge - Discharge Clinical Impression: Flank pain Condition: Stable Disposition: HOME, SELF-CARE Instructions: Flank Pain ([facility]) Additional Instructions: Return immediately for any new or worsening symptoms: Fever, vomiting, worsening pain or any concerning new symptoms Followup with your urologist, call today to make a followup appointment. Dr. Bruno advised a timely follow-up appointment within a week. Let the office staff know that they would like to get you in sooner for evaluation of your symptoms today. Urine culture is pending, we will call if you need any different treatment. Referrals: STEVEN VILLALOBOS MD [Primary Care Provider] - Follow up as needed RANDI BRUNO MD [NO LOCAL MD] - Follow up as needed [facility] [Provider Group] - Follow up in 3-5 days
--- NOTE | 2020-10-17 10:18 | RADIOLOGY REPORT (SQ) ---
EXAM DESCRIPTION: KUB/ABDOMEN (SINGLE VIEW) IMAGES COMPLETED DATE/TIME: 10/17/2020 9:59 am REASON FOR STUDY: r flank pain, hx kid stone COMPARISON: 10/07/2020 and it 08/08/2020 NUMBER OF VIEWS: Two views TECHNIQUE: Supine radiographic image of the abdomen acquired. LIMITATIONS: None. FINDINGS: BOWEL GAS PATTERN: Normal bowel gas pattern. No dilated loops. CALCIFICATIONS: Coarse calcification projecting over the shadow is stable in position and appearance. A punctate calcific density projecting in the region of the right distal ureter is not retrospectiv stefanie present on comparison imaging and may represent a tiny ureterolith. SOFT TISSUES: No gross mass or suggestion of organomegaly. HARDWARE: Left ureterovesicular stent, stable. BONES: No acute fracture. No worrisome bone lesions. OTHER: No other significant finding. IMPRESSION: A punctate calcific density projecting in the region of the right distal ureter is nonsp ecific, but may represent a tiny ureterolith. Stable position appearance of previously demonstrated nonobstructing nephrolith within the inferior pole collecting system. Stable position and appearance of a left ureteral stent. TECHNICAL DOCUMENTATION: JOB ID: [id number] [employer]- All Rights Reserved Reading location - IP/workstation name: [email or web address]
--- NOTE | 2020-10-17 10:25 | RADIOLOGY REPORT (SQ) ---
EXAM DESCRIPTION: U/S RETROPERITON (RENAL/AORTA) IMAGES COMPLETED DATE/TIME: 10/17/2020 10:06 am REASON FOR STUDY: r flank pain, hx kid stone COMPARISON: 10/17/2020, 08/07/2020 TECHNIQUE: Dynamic and static grayscale images acquired of the kidneys and bladder and recorded on P ACS. Additional selected color Doppler and spectral images recorded. LIMITATIONS: None. FINDINGS: RIGHT KIDNEY: Normal size. Normal echogenicity. No solid or suspicious masses. No hydronep hrosis. Multiple nonobstructing calcifications are seen, measuring up to 1.3 x 1.1 x 0.5 cm. . LEFT KIDNEY: Normal size. Normal echogenicity. No solid or suspicious masses. No hydronephrosis. No calcifications. BLADDER: Decompressed. OTHER FINDINGS: Mild ascites is seen extending from the liver into the pelvis. A right-sided pleural effusion is demonstrated. IMPRESSION: 1. Nonobstructing nephrolithiasis on the right. The bladder is decompressed. 2. Incidental finding of mild ascites and a right-sided pleural effusion. TECHNICAL DOCUMENTATION: JOB ID: [id number] [employer]- All Rights Reserved Reading location - IP/workstation name: [email or web address]
[2020-10-17] MEDS: MORPHINE SULFATE 10 MG/ML INJ IV PRN ×3 (11:16→13:29)
[2020-10-17] MEDS ORDERED: PHENAZOPYRIDINE HCL 200 MG TABLET PO ONE (13:17)
[2020-10-17 13:41] VITALS: BP 154/85
== END 2020-10-17 13:53 | disposition home or self-care (01) ==
LOC: ER 03:46
DX: R10.9 Unspecified abdominal pain (principal); R31.9 Hematuria, unspecified; R18.8 Other ascites; J90 Pleural effusion, not elsewhere classified; Z96.0 Presence of urogenital implants; R35.0 Frequency of micturition; R11.0 Nausea; I10 Essential (primary) hypertension; Z79.891 Long term (current) use of opiate analgesic; Z79.899 Other long term (current) drug therapy; Z87.442 Personal history of urinary calculi; Z88.1 Allergy status to other antibiotic agents
CPT/HCPCS: 96376; 99285; 96375; 96365; 36415; 87086; 83690; 85025; 80053; 81001; 74018; 76770; J2270; A9270; J2405; J0696; J3490